=== PATIENT | male | born 1975 | race Caucasian/White ===

== ENCOUNTER 2017-10-07 11:53 | Emergency (ER) | payer BC ==
[2017-10-07] MEDS ORDERED: ONDANSETRON 4 MG/2 ML VIAL ONE (12:56)
[2017-10-07] MEDS ORDERED: FENTANYL CITR 100 MCG/2 ML ONE ×2 (12:56→14:19)
[2017-10-07 12:58] LABS: Absolute Lymphocytes (CBC) 2.8 K/uL (0.7-4.9); Absolute Monocytes 0.7 K/uL (0.1-1.3); Absolute Neutrophil 5.8 K/uL (1.8-8.0); Basophils % 0.1 % (0-1.3); Eosinophils % 1.7 % (0-4.4); Hematocrit 45.8 % (39.6-49.0); Lymphocytes % 29.3 % (15.3-44.8); MCH 28.9 pg (27.0-35.0); MCV 87.4 fL (80-100); MPV 9.1 fL (7.6-11.3); Monocytes % 7.7 % (3.3-12.3); RBC Red Blood Cell Count 5.24 M/uL (4.33-5.43)
[2017-10-07 13:18] LABS: BUN Blood Urea Nitrogen 8 mg/dL (7-18); Bicarbonate 27 mmol/L (21-32); Glucose Level 116 mg/dL (74-106); Sodium Level 137 mmol/L (136-145)
--- NOTE | 2017-10-07 14:37 | RAD REPORT ---
EXAM DESCRIPTION: CT - Chest Abdomen Pelvis W Cont - 10/07/2017 2:08 pm CLINICAL HISTORY: Chest and abdominal pain status post fall COMPARISON: CT abdomen June 2016 and 2013 TECHNIQUE: Computed axial tomography of the chest, abdomen and pelvis was obtained. 100 cc Isovue-30 0 was administered intravenously. Oral contrast was not requested. This limits evaluation of bowel. All CT scans are performed using dose optimization technique as appropriate and may include automated exposure control or mA/KV adjustment according to patient size. FINDINGS: A pleural effusion is not present. A pericardial effusion is not seen. [place] and blebs are present within the lungs. A 15 millimeter ground-glass opacity is present within the right upper lobe. A mediastinal hematoma is not present. A small lucency within 2 lower left ribs is unchanged from 2014 and likely benign The liver, spleen, pancreas, adrenals, kidneys and bladder do not demonstrate a traumatic injury. Postsurgical changes involve the sigmoid colon. The appendix is normal. Diastases of the rectus abdom inis muscles is again demonstrated. Inguinal hernias CT. The liver, spleen, pancreas, adrenals and kidneys appear unremarkable. The bladder appears grossly normal. No ascites is seen. IMPRESSION: No traumatic injury involving the chest, abdomen nor pelvis is seen. A 15 millimeter ground-glass opacity within the right upper lobe indicative of a mild alveolitis
--- NOTE | 2017-10-07 14:44 | EDPHYS ---
Physician Documentation [facility] Name: Dennis Keating Age: 42 yrs Sex: Male : 1975 Arrival Date: 10/07/2017 Time: 11:56 Bed 16 Private MD: Emile Garcia ED Physician Jose John HPI: 10/07 12:45 This 42 yrs old Male presents to ER via Ambulatory with complaints of Fall jr8 Injury. 12:45 Details of fall: The patient fell from an upright position, while standing. Onset: The jr8 symptoms/episode began/occurred acutely, today. Associated injuries: The patient sustained injury to the chest, injury to the abdomen. Severity of symptoms: At their worst the symptoms were moderate, in the emergency department the symptoms are unchanged. The patient has not experienced similar symptoms in the past. The patient has not recently seen a physician. Patient stated that he slipped outside in rain. Landed on 2x4 on left side of body. Pain to ribs and abdomen. Stated that he cannot take a deep breath. Historical: - Allergies: 12:06 Aspirin; sg 12:06 Ibuprofen; sg 12:06 PENICILLINS; sg 12:06 Toradol; sg - PMHx: 12:06 CHRONS; Diverticulitis; Back pain; sg - Immunization history: Last tetanus immunization: unknown. - Ebola Screening: : Patient negative for fever greater than or equal to 101.5 degrees Fahrenheit, and additional compatible Ebola Virus Disease symptoms Patient denies exposure to infectious person Patient denies travel to an Ebola-affected area in the 21 days before illness onset No symptoms or risks identified at this time. - Social history:: Smoking status: Patient uses tobacco products, smokes one-half pack cigarettes per day. - Social history: Uses tobacco products: cigarettes, 1/2 ppd. ROS: 12:45 Eyes: Negative for injury, pain, redness, and discharge, ENT: Negative for injury, jr8 pain, and discharge, Neck: Negative for injury, pain, and swelling, Back: Negative for injury and pain, MS/Extremity: Negative for injury and deformity, Skin: Negative for injury, rash, and discoloration, Neuro: Negative for headache, weakness, numbness, tingling, and seizure. 12:45 Cardiovascular: Positive for chest pain, Negative for edema, orthopnea, palpitations, paroxysmal nocturnal dyspnea. 12:45 Respiratory: Positive for shortness of breath, Negative for cough, dyspnea on exertion, hemoptysis. 12:45 Abdomen/GI: Positive for abdominal pain, Negative for nausea, vomiting, and diarrhea. Exam: 12:45 Head/Face: Normocephalic, atraumatic. Eyes: Pupils equal round and reactive to light, jr8 extra-ocular motions intact. Lids and lashes normal. Conjunctiva and sclera are non-icteric and not injected. Cornea within normal limits. Periorbital areas with no swelling, redness, or edema. ENT: Nares patent. No nasal discharge, no septal abnormalities noted. Tympanic membranes are normal and external auditory canals are clear. Oropharynx with no redness, swelling, or masses, exudates, or evidence of obstruction, uvula midline. Mucous membranes moist. Neck: Trachea midline, no thyromegaly or masses palpated, and no cervical lymphadenopathy. Supple, full range of motion without nuchal rigidity, or vertebral point tenderness. No Meningismus. Cardiovascular: Regular rate and rhythm with a normal S1 and S2. No gallops, murmurs, or rubs. Normal PMI, no JVD. No pulse deficits. Respiratory: Lungs have equal breath sounds bilaterally, clear to auscultation and percussion. No rales, rhonchi or wheezes noted. No increased work of breathing, no retractions or nasal flaring. Back: No spinal tenderness. No costovertebral tenderness. Full range of motion. Skin: Warm, dry with normal turgor. Normal color with no rashes, no lesions, and no evidence of cellulitis. MS/ Extremity: Pulses equal, no cyanosis. Neurovascular intact. Full, normal range of motion. Neuro: Awake and alert, GCS 15, oriented to person, place, time, and situation. Cranial nerves II-XII grossly intact. Motor strength 5/5 in all extremities. Sensory grossly intact. Cerebellar exam normal. Normal gait. 12:45 Chest/axilla: Inspection: normal, Palpation: tenderness, that is moderate, of the diaphragm and left lateral anterior chest. 12:45 Abdomen/GI: Inspection: bruising, left upper quadrant, obese Bowel sounds: active, Palpation: moderate abdominal tenderness, in the anterior aspect of left lateral abdomen and left upper quadrant, Indicators: McBurney's point is not tender, Vinson's sign is negative, Rovsing's sign is negative, Liver: no appreciated palpable abnormalities, tenderness, is not appreciated. Vital Signs: 11:59 Resp 18; Temp 98.0; Pulse Ox 100% on R/A; Weight 149.69 kg (R); Pain 10/10; sg 12:05 BP 134 / 72; Pulse 76; sg 13:00 BP 126 / 98; Pulse 96; Resp 16; Pulse Ox 96% on R/A; aj 15:17 BP 121 / 92; Pulse 95; Resp 20; Pulse Ox 96% on R/A; aj Dre Coma Score: 11:59 Eye Response: spontaneous(4). Verbal Response: oriented(5). Motor Response: obeys sg commands(6). Total: 15. Trauma Score (Adult): 11:59 Eye Response: spontaneous(1); Verbal Response: oriented(1); Motor Response: obeys sg commands(2); Systolic BP: > 89 mm Hg(4); Respiratory Rate: 10 to 29 per min(4); Dre Score: 15; Trauma Score: 12 MDM: 12:00 Patient medically screened. [facility] 14:41 Data reviewed: vital signs, nurses notes, lab test result(s), radiologic studies, CT jr8 scan, and as a result, I will discharge patient. Data interpreted: Pulse oximetry: on room air is 96 %. Interpretation: normal. Counseling: I had a detailed discussion with the patient and/or guardian regarding: the historical points, exam findings, and any diagnostic results supporting the discharge/admit diagnosis, lab results, radiology results, the need for outpatient follow up, a family practitioner, to return to the emergency department if symptoms worsen or persist or if there are any questions or concerns that arise at home. 10/07 12:21 Order name: CBC with Diff; Complete Time: 13:40 jr8 10/07 12:21 Order name: Basic Metabolic Panel; Complete Time: 13:40 8 10/07 12:21 Order name: CT Chest, Abdomen, Pelvis - W/Contrast; Complete Time: 14:39 jr8 10/07 12:21 Order name: IV; Complete Time: 12:46 jr8 Administered Medications: 12:58 Drug: fentaNYL (PF) 100 mcg Route: IVP; Site: left hand; aj 15:21 Follow up: Response: No change in condition aj 12:58 Drug: Zofran 4 mg Route: IVP; Site: left hand; aj 15:21 Follow up: Response: No adverse reaction aj 14:21 Drug: fentaNYL (PF) 100 mcg Route: IVP; Site: left hand; aj 15:21 Follow up: Response: Pain is decreased aj Disposition: 18:36 Co-signature as Attending Physician, Jose John MD. rn Disposition: 10/07/17 14:43 Discharged to Home. Impression: Acute pain due to trauma, Chest wall contustion, Abdominal contusion . - Condition is Stable. - Prescriptions for Tylenol- Codeine #3 300-30 mg Oral Tablet - take 2 tablet by ORAL route every 6 hours As needed; 30 tablet. Cyclobenzaprine 10 mg Oral Tablet - take 1 tablet by ORAL route every 8 hours As needed; 20 tablet. - Medication Reconciliation Form, Thank You Letter, Antibiotic Education, Prescription Opioid Use form. - Follow up: Emile Garcia MD; When: 2 - 3 days; Reason: Recheck today's complaints, Continuance of care, Re-evaluation by your physician. - Problem is new. - Symptoms have improved. Signatures: Dispatcher [employer] EDMS Carlos Smith RN RN sg Myers, Amanda, RN RN aj Nieto, Roman, MD MD rn Roszak, Josh, PA PA jr8 Corrections: (The following items were deleted from the chart) 12:26 11:57 Social history: Smoking status: Patient/guardian denies using tobacco, [facility] 15:22 14:43 10/07/2017 14:43 Discharged to Home. Impression: Acute pain due to trauma; Chest aj wall contustion, Abdominal contusion . Condition is Stable. Forms are Medication Reconciliation Form, Thank You Letter, Antibiotic Education, Prescription Opioid Use. Follow up: Emile Garcia; When: 2 - 3 days; Reason: Recheck today's complaints, Continuance of care, Re-evaluation by your physician. Problem is new. Symptoms have improved. jr8
--- NOTE | 2017-10-07 14:44 | ER ---
Nurse's Notes [facility] Name: Dennis Keating Age: 42 yrs Sex: Male : 1975 Arrival Date: 10/07/2017 Time: 11:56 Bed 16 Private MD: Emile Garcia Diagnosis: Acute pain due to trauma;Chest wall contustion, Abdominal contusion Presentation: 10/07 11:57 Presenting complaint: Patient states: pt stepped on a wet piece of plywood, slipped and sg fell, hit a fence post on his left rib cage area, has a hx of back pain and recently had an MRI the other day, reports pain in his lower back. Care prior to arrival: None. Mechanism of Injury: Fall from standing position. Trauma event details: Injury occurred in the [facility], Injury occurred: at home. Injury occurred: October 07, 2017 Injury occurred at: 09:00. 11:57 Acuity: AMNA 4 sg 11:57 Method Of Arrival: Ambulatory sg 11:57 Transition of care: patient was not received from another setting of care. Onset of sg symptoms was October 07, 2017. Risk Assessment: Do you want to hurt yourself or someone else? Patient reports no desire to harm self or others. Initial Sepsis Screen: Does the patient meet any 2 criteria? No. Patient's initial sepsis screen is negative. Does the patient have a suspected source of infection? No. Patient's initial sepsis screen is negative. 13:45 Acuity: AMNA 3 ss Historical: - Allergies: 12:06 Aspirin; sg 12:06 Ibuprofen; sg 12:06 PENICILLINS; sg 12:06 Toradol; sg - PMHx: 12:06 CHRONS; Diverticulitis; Back pain; sg - Immunization history: Last tetanus immunization: unknown. - Ebola Screening: : Patient negative for fever greater than or equal to 101.5 degrees Fahrenheit, and additional compatible Ebola Virus Disease symptoms Patient denies exposure to infectious person Patient denies travel to an Ebola-affected area in the 21 days before illness onset No symptoms or risks identified at this time. - Social history:: Smoking status: Patient uses tobacco products, smokes one-half pack cigarettes per day. - Social history: Uses tobacco products: cigarettes, 1/2 ppd. Screenin:57 Abuse screen: Denies threats or abuse. Denies injuries from another. Tuberculosis sg screening: No symptoms or risk factors identified. Never had TB. 13:00 Nutritional screening: No deficits noted. Fall Risk None identified. aj Primary Survey: 11:57 A: Airway: patent, No supplemental oxygen in use on arrival. Oral cavity: clear. sg Breathing/Chest: Respiratory pattern: regular, Respiratory effort: spontaneous, unlabored, Chest inspection: symmetrical rise and fall of the chest. Circulation: Pulses: palpable right radial artery and left radial artery. Skin color: pink, Skin temperature: warm. Disability Alert. 15:19 Reassessment Airway Airway Patent Breathing/Chest Respiratory pattern Regular aj Respiratory effort Spontaneous Unlabored Breath sounds Clear Chest inspection Symmetrical Circulation Color [place]. Secondary Survey: 11:57 HEENT: No deficits noted. Gastrointestinal: Abdomen is soft, obese. : No signs and/or sg symptoms were reported regarding the genitourinary system. Musculoskeletal: Reports pain in low back, and left ribs. abrasion noted to left side of anterior chest wall. Assessment: 13:00 General: Appears in no apparent distress. uncomfortable, obese, Behavior is calm, aj cooperative, appropriate for age. Pain: Complains of pain in chest and diaphragm. Neuro: Level of Consciousness is awake, alert, obeys commands, Oriented to person, place, time, situation. Respiratory: Airway is patent Respiratory effort is even, unlabored, Respiratory pattern is regular, symmetrical. Derm: Skin is intact, is healthy with good turgor, Skin is pink, warm \T\ dry. normal. Musculoskeletal: Reports pain in diaphragm. Vital Signs: 11:59 Resp 18; Temp 98.0; Pulse Ox 100% on R/A; Weight 149.69 kg (R); Pain 10/10; sg 12:05 BP 134 / 72; Pulse 76; sg 13:00 BP 126 / 98; Pulse 96; Resp 16; Pulse Ox 96% on R/A; aj 15:17 BP 121 / 92; Pulse 95; Resp 20; Pulse Ox 96% on R/A; aj [place] Coma Score: 11:59 Eye Response: spontaneous(4). Verbal Response: oriented(5). Motor Response: obeys sg commands(6). Total: 15. Trauma Score (Adult): 11:59 Eye Response: spontaneous(1); Verbal Response: oriented(1); Motor Response: obeys sg commands(2); Systolic BP: > 89 mm Hg(4); Respiratory Rate: 10 to 29 per min(4); Dre Score: 15; Trauma Score: 12 ED Course: 11:56 Patient arrived in ED. sb2 11:56 Emile Garcia MD is Private Physician. sb2 11:57 Patient has correct armband on for positive identification. Bed in low position. Call sg light in reach. Side rails up X 1. 11:57 Arm band placed on. sg 11:59 Triage completed. sg 12:00 Gordo Contreras PA is PHCP. jr8 12:00 Jose John MD is Attending Physician. jr8 12:04 Darya Ray, ARAMIS is Primary Nurse. aj 12:46 Initial lab(s) drawn, by me, sent to lab. Inserted saline lock: 20 gauge in left wrist, em1 using aseptic technique. Blood collected. 12:57 Radiology exam delayed due to lab results not completed at this time. (BUN/Creatinine). vr 13:00 No provider procedures requiring assistance completed. aj 14:09 CT Chest, Abdomen, Pelvis - W/Contrast In Process Unspecified. EDMS 14:41 Emile Garcia MD is Referral Physician. jr8 15:17 IV discontinued, intact. aj 15:19 Patient maintains SpO2 saturation greater than 95% on room air. aj Administered Medications: 12:58 Drug: fentaNYL (PF) 100 mcg Route: IVP; Site: left hand; aj 15:21 Follow up: Response: No change in condition aj 12:58 Drug: Zofran 4 mg Route: IVP; Site: left hand; aj 15:21 Follow up: Response: No adverse reaction aj 14:21 Drug: fentaNYL (PF) 100 mcg Route: IVP; Site: left hand; aj 15:21 Follow up: Response: Pain is decreased aj Intake: 15:19 PO: 0ml; Total: 0ml. aj Outcome: 14:43 Discharge ordered by . jr8 15:17 Discharged to home with significant other. aj 15:17 Condition: good 15:17 Discharge instructions given to patient, family, Instructed on discharge instructions, follow up and referral plans. medication usage, Demonstrated understanding of instructions, follow-up care, medications, Prescriptions given X 2. 15:20 Patient's length of stay was not longer than 2 hours. aj 15:22 Patient left the ED. aj Signatures: Dispatcher [employer] EDCarlos Peoples RN RN sg Myers, Amanda, RN RN aj Martinez, Eric em1 Tori Nowak RN RN ss Davis, Victoria vr Roszak, Josh, PA PA jr8 Marlene Flores2 Corrections: (The following items were deleted from the chart) 12: 11:57 Social history: Smoking status: Patient/guardian denies using tobacco, [facility] 12:27 11:57 Presenting complaint: Patient states: pt stepped on a wet piece of plywood, sg slipped and fell, hit a fence post on his right rib cage area, has a hx of back pain and recently had an MRI the other day, reports pain in his lower back sg
[2017-10-07 15:46] VITALS: TEMP 98
[2017-10-07 15:48] VITALS: O2SAT 96
[2017-10-07 15:49] VITALS: BP 121/92
== END 2017-10-07 15:22 | disposition home or self-care (01) ==
LOC: ER 11:53
DX: S20.219A Contusion of unspecified front wall of thorax, initial encounter (principal); S30.1XXA Contusion of abdominal wall, initial encounter; W18.39XA Other fall on same level, initial encounter; Y93.89 Activity, other specified; Y92.89 Other specified places as the place of occurrence of the external cause; G89.11 Acute pain due to trauma; F17.210 Nicotine dependence, cigarettes, uncomplicated; Z88.0 Allergy status to penicillin; Z88.5 Allergy status to narcotic agent; Z88.6 Allergy status to analgesic agent
CPT/HCPCS: 36415; 71260; 74177; 80048; 85025; 96374; 96375; 99284; J2405; J3010; Q9967

== ENCOUNTER 2017-11-14 12:55 | Inpatient (IN) | payer BC, SELFPAY ==
--- NOTE | 2017-11-14 14:37 | ER ---
Nurse's Notes [facility] Name: Dennis Keating Age: 42 yrs Sex: Male : 1975 Arrival Date: 11/14/2017 Time: 12:56 Bed 25 Private MD: Diagnosis: Cellulitis to left foot and lower leg Presentation: 11/14 13:00 Presenting complaint: Patient states: Ulcer to left foot for 2 days. Transition of aj care: patient was not received from another setting of care. Onset of symptoms was November 12, 2017. Risk Assessment: Do you want to hurt yourself or someone else? Patient reports no desire to harm self or others. Initial Sepsis Screen: Does the patient meet any 2 criteria? No. Patient's initial sepsis screen is negative. Does the patient have a suspected source of infection? No. Patient's initial sepsis screen is negative. Care prior to arrival: None. 13:00 Method Of Arrival: Ambulatory aj 13:00 Acuity: AMNA 3 aj Triage Assessment: 13:02 General: Appears in no apparent distress. comfortable, Behavior is calm, cooperative, aj appropriate for age. Pain: Complains of pain in dorsum of left foot. Neuro: Level of Consciousness is awake, alert, obeys commands, Oriented to person, place, time, situation, Appropriate for age. Respiratory: Airway is patent Respiratory effort is even, unlabored, Respiratory pattern is regular, symmetrical. Derm: Skin is intact, is healthy with good turgor, Skin is pink, warm \T\ dry. normal, Wound noted dorsum of left foot Wound is Ulcer noted to top of left foot. Redness to left moreno. Musculoskeletal: Swelling present in right leg and left leg. Historical: - Allergies: 13:02 Aspirin; aj 13:02 Ibuprofen; aj 13:02 PENICILLINS; aj 13:02 Toradol; aj 13:02 Cipro PO; aj - Home Meds: 13:02 Flexeril Oral [Active]; Quinter Oral [Active]; meloxicam oral oral [Active]; aj - PMHx: 13:02 Back pain; Diverticulitis; aj - PSHx: 13:02 Knee surgery; aj - Immunization history:: Adult Immunizations up to date. - Social history:: Smoking status: Patient uses tobacco products, smokes one-half pack cigarettes per day. - Ebola Screening: : Patient negative for fever greater than or equal to 101.5 degrees Fahrenheit, and additional compatible Ebola Virus Disease symptoms Patient denies exposure to infectious person Patient denies travel to an Ebola-affected area in the 21 days before illness onset No symptoms or risks identified at this time. Screenin:26 Abuse screen: Denies threats or abuse. Denies injuries from another. Nutritional ed1 screening: No deficits noted. Tuberculosis screening: No symptoms or risk factors identified. Fall Risk None identified. Assessment: 13:26 General: Appears uncomfortable, Behavior is calm, cooperative. Pain: Complains of pain ed1 in dorsum of left foot Pain radiates to left leg Pain currently is 7 out of 10 on a pain scale. Quality of pain is described as aching, throbbing, Pain began 1 day ago. Is continuous, Current management - is no interventions. Neuro: Level of Consciousness is awake, alert, obeys commands, Oriented to person, place, time, situation. Cardiovascular: Denies chest pain, Heart tones S1 S2 present. Respiratory: Airway is patent Respiratory effort is even, unlabored, Respiratory pattern is regular, symmetrical, Breath sounds are clear bilaterally. GI: No signs and/or symptoms were reported involving the gastrointestinal system. : No signs and/or symptoms were reported regarding the genitourinary system. EENT: No signs and/or symptoms were reported regarding the EENT system. Derm: Skin is healthy with good turgor, Skin is dry, Skin is normal, Skin temperature is warm Wound noted dorsum of left foot Other: no drainage noted, redness and swelling to area. Musculoskeletal: Circulation, motion, and sensation intact. Capillary refill < 3 seconds, in bilateral toes. Swelling present in left foot and left leg. 13:30 General: The previous assessment is accurate. Call light remains within reach. . ss 13:56 Reassessment: Patient appears in no apparent distress at this time. No changes from ed1 previously documented assessment. Patient and/or family updated on plan of care and expected duration. Pain level reassessed. Patient is alert, oriented x 3, equal unlabored respirations, skin warm/dry/pink. Patient states symptoms have not improved. 15:22 Reassessment: Patient appears in no apparent distress at this time. Patient and/or ed1 family updated on plan of care and expected duration. Pain level reassessed. Patient is alert, oriented x 3, equal unlabored respirations, skin warm/dry/pink. Patient states feeling better. Patient states symptoms have improved. 15:42 Reassessment: Patient appears in no apparent distress at this time. No changes from ed1 previously documented assessment. Patient and/or family updated on plan of care and expected duration. Pain level reassessed. Patient is alert, oriented x 3, equal unlabored respirations, skin warm/dry/pink. Vital Signs: 13:02 BP 137 / 99; Pulse 102; Resp 20; Temp 97.0; Pulse Ox 96% on R/A; Weight 149.69 kg; aj Height 6 ft. 2 in. (187.96 cm); 13:56 BP 138 / 94; Pulse 83; Resp 20; Temp 98(O); Pulse Ox 96% on R/A; Pain 8/10; ed1 15:22 BP 125 / 86; Pulse 81; Resp 20; Temp 97.5; Pulse Ox 99% on 2 lpm NC; Pain 4/10; ed1 13:02 Body Mass Index 42.37 (149.69 kg, 187.96 cm) ED Course: 12:56 Patient arrived in ED. as 13:01 Triage completed. aj 13:02 Arm band placed on right wrist. Patient placed in waiting room, Patient notified of wait time. 13:22 Annette Overton LVN is Primary Nurse. ed1 13:26 Patient has correct armband on for positive identification. Bed in low position. Call ed1 light in reach. Side rails up X 1. Adult w/ patient. Pulse ox on. NIBP on. 13:29 Awaiting ED provider evaluation. ed1 13:56 Vlad Valle MD is Attending Physician. kdr 13:57 Awaiting ED provider evaluation. ed1 14:36 Calista Larios MD is Hospitalizing Provider. kdr 14:45 Initial lab(s) drawn, by ct, sent to lab. First set of blood cultures drawn by me, ag Second set of blood cultures drawn by ct. 14:50 X-ray completed. Portable x-ray completed in exam room. Patient tolerated procedure la2 well. 14:51 Inserted saline lock: 20 gauge in right antecubital area, using aseptic technique. ag Blood collected. 14:52 CBC with Automated Diff Sent. ag 14:52 Basic Metabolic Panel Sent. ag 14:53 Blood Culture Adult (2) Sent. ag 14:53 Chem 7 Sent. ag 14:53 CBC with Diff Sent. ag 14:59 Foot Left 3 View XRAY In Process Unspecified. EDMS 15:42 No provider procedures requiring assistance completed. Patient admitted, IV remains in ed1 place. intact, No redness/swelling at site. Administered Medications: 15:13 Drug: Clindamycin 900 mg Route: IVPB; Infused Over: 30 mins; Site: right antecubital; ed1 15:43 Follow up: Response: No adverse reaction; IV Status: Completed infusion; IV Intake: [id number] 15:14 Drug: morphine 4 mg Route: IVP; Site: right antecubital; ss 15:29 Follow up: Response: No adverse reaction; No change in condition; Pain is unchanged, ed1 physician notified 15:14 Drug: Zofran 4 mg Route: IVP; Site: right antecubital; ss 15:29 Follow up: Response: No adverse reaction ed1 15:29 Drug: vancoMYCIN 1.5 grams Route: IVPB; Rate: calculated rate; Site: right antecubital; ed1 15:43 Follow up: IV Status: Infusion continued upon admission ed1 Intake: 15:43 IV: 50ml; Total: 50ml. ed1 Outcome: 14:36 Decision to Hospitalize by Provider. kdr 15:42 Admitted to Tele accompanied by tech, family with patient, via wheelchair, room 431, ed1 with chart, Report called to Lucy Goss 15:42 Condition: stable 15:42 Discharge instructions given to patient, family, Instructed on the need for admit, Demonstrated understanding of instructions. 15:45 Patient left the ED. ed1 Signatures: Dispatcher [employer] EDMS Darya Ray RN RN aj Rittger, Kevin, MD MD kdr Martinez, Amelia as Smirch, Shelby, RN RN ss Riggs, Erika, RV REPAIRER RV REPAIRER ed1 Mae Braxton Leslie la2 Corrections: (The following items were deleted from the chart) 15:58 15:42 Admitted to Tele accompanied by tech, family with patient, via wheelchair, room ed1 431, with chart, ed1
--- NOTE | 2017-11-14 14:37 | EDPHYS ---
Physician Documentation [facility] Name: Dennis Keating Age: 42 yrs Sex: Male : 1975 Arrival Date: 11/14/2017 Time: 12:56 Bed 25 Private MD: ED Physician Vlad Valle HPI: 11/14 14:38 This 42 yrs old Male presents to ER via Ambulatory with complaints of Foot kdr Pain, Leg Pain, Skin Problem. 14:38 The patient presents with a bite, by an insect. The complaints affect the left foot. kdr 17:36 Context: The problem was sustained at home, resulted from Possible insect bite, the kdr patient can partially bear weight, the patient is able to ambulate, with mild difficulty. Onset: The symptoms/episode began/occurred gradually, 3 day(s) ago. Modifying factors: The symptoms are alleviated by nothing, the symptoms are aggravated by weight bearing, movement, wearing shoes. Associated signs and symptoms: Pertinent positives: calf tenderness, swelling, warmth, weakness. Severity of symptoms: At their worst the symptoms were moderate, in the emergency department the symptoms are unchanged. yes - long history of cellulitis and treatment. The patient has not recently seen a physician. Historical: - Allergies: 13:02 Aspirin; aj 13:02 Ibuprofen; aj 13:02 PENICILLINS; aj 13:02 Toradol; aj 13:02 Cipro PO; aj - Home Meds: 13:02 Flexeril Oral [Active]; Kuna Oral [Active]; meloxicam oral oral [Active]; aj - PMHx: 13:02 Back pain; Diverticulitis; aj - PSHx: 13:02 Knee surgery; aj - Immunization history:: Adult Immunizations up to date. - Social history:: Smoking status: Patient uses tobacco products, smokes one-half pack cigarettes per day. - Ebola Screening: : Patient negative for fever greater than or equal to 101.5 degrees Fahrenheit, and additional compatible Ebola Virus Disease symptoms Patient denies exposure to infectious person Patient denies travel to an Ebola-affected area in the 21 days before illness onset No symptoms or risks identified at this time. ROS: 17:36 Constitutional: Negative for fever, chills, and weight loss, Eyes: Negative for injury, kdr pain, redness, and discharge, Neck: Negative for injury, pain, and swelling, Cardiovascular: Negative for chest pain, palpitations, and edema, Respiratory: Negative for shortness of breath, cough, wheezing, and pleuritic chest pain, Abdomen/GI: Negative for abdominal pain, nausea, vomiting, diarrhea, and constipation, Back: Negative for injury and pain, : Negative for injury, bleeding, discharge, and swelling, MS/Extremity: Negative for injury and deformity, Psych: Negative for depression, anxiety, suicide ideation, homicidal ideation, and hallucinations, Allergy/Immunology: Negative for hives, rash, and allergies, Endocrine: Negative for neck swelling, polydipsia, polyuria, polyphagia, and marked weight changes, Hematologic/Lymphatic: Negative for swollen nodes, abnormal bleeding, and unusual bruising. 17:36 Skin: Positive for cellulitis, erythema, swelling, The left foot is red, warm and swollen with erythema to the mid to upper calf. Exam: 17:36 Constitutional: This is a well developed, well nourished patient who is awake, alert, kdr and in no acute distress. Head/Face: Normocephalic, atraumatic. Eyes: Pupils equal round and reactive to light, extra-ocular motions intact. Lids and lashes normal. Conjunctiva and sclera are non-icteric and not injected. Cornea within normal limits. Periorbital areas with no swelling, redness, or edema. Neck: Trachea midline, no thyromegaly or masses palpated, and no cervical lymphadenopathy. Supple, full range of motion without nuchal rigidity, or vertebral point tenderness. No Meningismus. Chest/axilla: Normal chest wall appearance and motion. Nontender with no deformity. No lesions are appreciated. Cardiovascular: Regular rate and rhythm with a normal S1 and S2. No gallops, murmurs, or rubs. Normal PMI, no JVD. No pulse deficits. Respiratory: Lungs have equal breath sounds bilaterally, clear to auscultation and percussion. No rales, rhonchi or wheezes noted. No increased work of breathing, no retractions or nasal flaring. Abdomen/GI: Soft, non-tender, with normal bowel sounds. No distension or tympany. No guarding or rebound. No evidence of tenderness throughout. Back: No spinal tenderness. No costovertebral tenderness. Full range of motion. MS/ Extremity: Pulses equal, no cyanosis. Neurovascular intact. Full, normal range of motion. Neuro: Awake and alert, GCS 15, oriented to person, place, time, and situation. Cranial nerves II-XII grossly intact. Motor strength 5/5 in all extremities. Sensory grossly intact. Cerebellar exam normal. Normal gait. Psych: Awake, alert, with orientation to person, place and time. Behavior, mood, and affect are within normal limits. 17:36 Skin: Appearance: Color: erythematous, flushed, Temperature: warm, Moisture: dry, swelling, that are moderate, that are marked. Vital Signs: 13:02 BP 137 / 99; Pulse 102; Resp 20; Temp 97.0; Pulse Ox 96% on R/A; Weight 149.69 kg; aj Height 6 ft. 2 in. (187.96 cm); 13:56 BP 138 / 94; Pulse 83; Resp 20; Temp 98(O); Pulse Ox 96% on R/A; Pain 8/10; ed1 15:22 BP 125 / 86; Pulse 81; Resp 20; Temp 97.5; Pulse Ox 99% on 2 lpm NC; Pain 4/10; ed1 13:02 Body Mass Index 42.37 (149.69 kg, 187.96 cm) aj MDM: 14:36 Patient medically screened. kdr 17:36 Data reviewed: vital signs, nurses notes, lab test result(s), radiologic studies. kdr Counseling: I had a detailed discussion with the patient and/or guardian regarding: the historical points, exam findings, and any diagnostic results supporting the discharge/admit diagnosis, lab results, radiology results, the need for further work-up and treatment in the hospital. 11/14 14:15 Order name: CBC with Diff kdr 11/14 14:15 Order name: Chem 7 [facility] 11/14 14:15 Order name: Blood Culture Adult (2) [facility] 11/14 14:15 Order name: CBC with Automated Diff [facility]TN 11/14 14:15 Order name: Basic Metabolic Panel [facility] 11/14 14:35 Order name: ESR [facility] 11/14 14:15 Order name: Foot Left 3 View XRAY [facility] 11/14 14:50 Order name: Lactate [facility]TN 11/14 14:50 Order name: Extrem Venous W Compress Crow [facility]TN 11/14 15:06 Order name: Vancomycin Level Trough EDMS Administered Medications: 15:13 Drug: Clindamycin 900 mg Route: IVPB; Infused Over: 30 mins; Site: right antecubital; ed1 15:43 Follow up: Response: No adverse reaction; IV Status: Completed infusion; IV Intake: [id number] 15:14 Drug: morphine 4 mg Route: IVP; Site: right antecubital; ss 15:29 Follow up: Response: No adverse reaction; No change in condition; Pain is unchanged, ed1 physician notified 15:14 Drug: Zofran 4 mg Route: IVP; Site: right antecubital; ss 15:29 Follow up: Response: No adverse reaction ed1 15:29 Drug: vancoMYCIN 1.5 grams Route: IVPB; Rate: calculated rate; Site: right antecubital; ed1 15:43 Follow up: IV Status: Infusion continued upon admission ed1 Disposition: 11/14/17 14:36 Hospitalization ordered by Calista Larios for Inpatient Admission. Preliminary diagnosis is Cellulitis to left foot and lower leg. - Bed requested for Telemetry/MedSurg (Inpatient). - Status is Inpatient Admission. ed1 - Condition is Fair. - Problem is new. - Symptoms are unchanged. UTI on Admission? No Signatures: Dispatcher [employer] EDTN Darya Ray RN RN aj Rittger, Kevin, MD MD kdr Smirch, Shelby, RN RN ss Annette Overton LVN LVN ed1 Heather Spears Corrections: (The following items were deleted from the chart) 14:39 14:36 Hospitalization Ordered by Calista Larios MD for Inpatient Admission. Preliminary eb diagnosis is Cellulitis to left foot and lower leg. Bed requested for Telemetry/MedSurg (Inpatient). Status is Inpatient Admission. Condition is Fair. Problem is new. Symptoms are unchanged. UTI on Admission? No. kdr 14:59 14:39 11/14/2017 14:36 Hospitalization Ordered by Calista Larios MD for Inpatient eb Admission. Preliminary diagnosis is Cellulitis to left foot and lower leg. Bed requested for Telemetry/MedSurg (Inpatient). Status is Inpatient Admission. Condition is Fair. Problem is new. Symptoms are unchanged. UTI on Admission? No. eb 15:45 14:59 11/14/2017 14:36 Hospitalization Ordered by Calista Larios MD for Inpatient ed1 Admission. Preliminary diagnosis is Cellulitis to left foot and lower leg. Bed requested for Telemetry/MedSurg (Inpatient). Status is Inpatient Admission. Condition is Fair. Problem is new. Symptoms are unchanged. UTI on Admission? No. eb
[2017-11-14] MEDS ORDERED: CLINDAMYCIN 900MG/D5W 900 MG/50 ML BAG IV ONE (14:59)
[2017-11-14 15:04] LABS: Absolute Lymphocytes (CBC) 2.8 K/uL (0.7-4.9); Absolute Monocytes 0.7 K/uL (0.1-1.3); Absolute Neutrophil 5.6 K/uL (1.8-8.0); Basophils % 1.3 % (0-1.3); Eosinophils % 1.9 % (0-4.4); Hematocrit 44.6 % (39.6-49.0); Lymphocytes % 29.9 % (15.3-44.8); MCH 29.9 pg (27.0-35.0); MCV 88.7 fL (80-100); Monocytes % 7.6 % (3.3-12.3); RBC Red Blood Cell Count 5.03 M/uL (4.33-5.43)
[2017-11-14] MEDS ORDERED: MORPHINE 4 MG/ML SYR ONE (15:04)
[2017-11-14] MEDS ORDERED: ONDANSETRON 4 MG/2 ML VIAL ONE (15:05)
--- NOTE | 2017-11-14 15:05 | P.HP ---
Certification for Inpatient Patient admitted to: Inpatient With expected LOS: >2 Midnights Patient will require the following post-hospital care: None Practitioner: I am a practitioner with admitting privileges, knowledge of patient current condition, hospital course, and medical plan of care. Services: Services provided to patient in accordance with Admission requirements found in Title 42 Section 412.3 of the Code of Federal Regulations Patient History Date of Service: 11/14/17 Primary Care Provider: OOT Reason for admission: Leg Swelling History of Present Illness: This is a 42-year-old male with significant past medical history of Crohn's disease status post colon resection who presented to the ED complaining of having some left lower leg swelling and erythema. Patient stated that last Wednesday he noticed that he had an ant bite which he has been scratching ever since and got progressively worse is a decided to come to the ER. Patient stated that he has been on his feet a lot and he noticed that his P has getting swollen more than usual. Left side is swollen worse than the right side. Patient stated that he has been scratching his legs with his hand and his heel the other leg and noticed that today his skin was peeling off and thus he decided to come to the ER. Patient stated that [place] is or tight shoes and socks which made his swelling and pain worsened left lower extremity. Patient denies having any fever chills nausea vomiting or any other associated symptoms at this time. Patient stated that he has had similar episode in the past and required IV antibiotics before he was discharged home. Allergies aspirin Allergy (Verified 07/04/11 01:56) Itching/Hives/Rash ibuprofen Allergy (Verified 07/04/11 01:57) Itching/Hives/Rash ketorolac tromethamine [From Toradol] Allergy (Verified 07/04/11 01:57) Itching/Hives/Rash Penicillins Allergy (Verified 07/04/11 01:56) Itching/Hives/Rash Home Medications: Cefepime [Maxipime*] 1 gm IJ Q12H #20 vial 07/07/13 Hydrocodone 5/APAP 325 [Sanger 5/325*] 1 tab PO Q4HP PRN #50 tab 07/07/13 metroNIDAZOLE [Flagyl*] 500 mg PO Q8H #30 tablet 07/07/13 Fentanyl Patch [Duragesic Patch*] 50 mcg TD EVERY 3RD DAY PRN 07/10/13 - Past Medical/Surgical History Diabetic: No -: crohns, diverticulitis -: RT foot ,ankle, knee -: Colon resection - Social History Alcohol use: No CD- Drugs: No Caffeine use: Yes Review of Systems General: As per HPI Physical Examination - Physical Exam General: Alert, In no apparent distress, Oriented x3, Obese HEENT: Atraumatic Neck: Supple Respiratory: Clear to auscultation bilaterally, Normal air movement Cardiovascular: Regular rate/rhythm, Normal S1 S2 Gastrointestinal: Normal bowel sounds, No tenderness Musculoskeletal: Swelling, Erythema, Tenderness, Warmth (Left Leg. Necrotic area noted on the dorsal side of the foot. ) Integumentary: No rashes Neurological: Normal speech, Normal tone, Abnormal strength Lymphatics: No axilla or inguinal lymphadenopathy Assessment and Plan - Problems (Diagnosis) (1) Cellulitis Current Visit: Yes Status: Acute Plan: Cellulitis and swelling of the left lower extermity -IV vanc and zosyn -Wound and Blood culture pending -Xray of the foot pending to r.o Osteomylitis -US of BL LE pending to r.o DVT -JANA wrap and wound care Qualifiers: Site of cellulitis: extremity Site of cellulitis of extremity: lower extremity Laterality: left Qualified Code(s): L03.116 - Cellulitis of left lower limb (2) Crohn's disease Current Visit: No Status: Chronic Plan: Stable. S.p Colon resection Discharge Plan: Home Plan to discharge in: 24 Hours - Advance Directives Does patient have a Living Will: No Does patient have a Durable POA for Healthcare: No - Code Status/Comfort Care Code Status Assessed: Yes Critical Care: No
[2017-11-14 15:22] LABS: BUN Blood Urea Nitrogen 10 mg/dL (7-18); Bicarbonate 30 mmol/L (21-32); Glucose Level 84 mg/dL (74-106); Potassium 3.9 mmol/L (3.5-5.1); Sodium Level 140 mmol/L (136-145)
--- NOTE | 2017-11-14 15:27 | RAD REPORT ---
EXAM DESCRIPTION: RAD - Foot Left 3 View - 11/14/2017 2:58 pm CLINICAL HISTORY: Cellulitis, foot pain, nonhealing wound COMPARISON: None. FINDINGS: No fracture, dislocation or periosteal reaction. No acute or destructive bony process. Mi nimal degenerative spurring seen along the dorsum of the tarsal bones. Prominent soft tissue swelling over the dorsum of the foot. No air or foreign body. IMPRESSION: No osteomyelitis or acute bone findings seen. Soft tissue swelling over the dorsum. No air or foreign body.
[2017-11-14] MEDS ORDERED: VANCOMYCIN 2 GM in NA CHLORIDE 0.9% 500 ML IVPB SCH (16:00)
[2017-11-14] MEDS ORDERED: ACETAMINOPHEN 500 MG TAB PO PRN (16:01)
[2017-11-14] MEDS ORDERED: ONDANSETRON 4 MG/2 ML VIAL IV PRN (16:01)
[2017-11-14] MEDS ORDERED: CYCLOBENZAPRINE 10 MG TAB PO PRN (16:18)
[2017-11-14 16:22] VITALS: BMI 41.8
[2017-11-14] MEDS: NA CHLORIDE 0.9% 1,000 ML IV SCH (17:25)
[2017-11-14] MEDS: HYDROCODONE/APAP 5/325 MG TAB PO PRN ×2 (17:25→22:04)
[2017-11-14] MEDS: PIPER/TAZO/NS 3.375gm 3.375 GM/100 ML BAG IVPB SCH (17:32)
[2017-11-14] MEDS: NICOTINE 14 MG/PAT TD SCH (20:49)
[2017-11-14] MEDS ORDERED: VANCOMYCIN 1.5 GM in NA CHLORIDE 0.9% 500 ML IVPB SCH (21:00)
[2017-11-14] MEDS ORDERED: TRAMADOL HCL 50 MG TAB PO PRN (21:31)
--- NOTE | 2017-11-14 22:44 | RAD REPORT ---
EXAM DESCRIPTION: VAS - Extrem Venous W Compress Crow - 11/14/2017 9:45 pm CLINICAL HISTORY: Leg pain and swelling COMPARISON: None. TECHNIQUE: Real-time sonographic evaluation of the bilateral lower extremity deep venous systems was performed. FINDINGS: Normal compressibility, flow augmentation, phasic flow and spontaneous flow are identified in the left and right lower extremity common femoral, superficial femoral, popliteal and posterior t ibial veins. No intraluminal filling defects seen. IMPRESSION: No DVT in either lower extremity.
[2017-11-15] MEDS: PIPER/TAZO/NS 3.375gm 3.375 GM/100 ML BAG IVPB SCH ×3 (00:47→21:52)
[2017-11-15 01:31] LABS: Urine Appearance TURBID; Urine Blood NEGATIVE (NEG); Urine Color DK YELLOW; Urine Glucose NEGATIVE (NEG); Urine Protein NEGATIVE (NEG); Urine Specific Gravity >=1.030 (1.005-1.030); Urine pH 5.5 (5.0-7.0)
[2017-11-15 01:49] LABS: Urine Bilirubin NEGATIVE (NEG); Urine Microscopic Reflex ORDER UMIC
[2017-11-15 01:58] LABS: Urine Amorphous Sediment 4+ /HPF (NONE SEEN); Urine Bacteria <20 /HPF (NONE SEEN); Urine Culture Reflex Order NOT NEEDED; Urine RBC NONE SEEN /HPF (NONE SEEN)
[2017-11-15] MEDS: NA CHLORIDE 0.9% 1,000 ML IV SCH ×3 (03:22→22:01)
[2017-11-15] MEDS: VANCOMYCIN 2 GM in NA CHLORIDE 0.9% 500 ML IVPB SCH ×2 (03:22→16:49)
[2017-11-15 06:01] LABS: Absolute Lymphocytes (CBC) 2.2 K/uL (0.7-4.9); Absolute Monocytes 0.6 K/uL (0.1-1.3); Absolute Neutrophil 3.6 K/uL (1.8-8.0); Basophils % 0.8 % (0-1.3); Eosinophils % 2.8 % (0-4.4); Hematocrit 41.8 % (39.6-49.0); Lymphocytes % 32.5 % (15.3-44.8); MCH 30.2 pg (27.0-35.0); MCV 90.1 fL (80-100); MPV 8.8 fL (7.6-11.3); Monocytes % 9.2 % (3.3-12.3); RBC Red Blood Cell Count 4.64 M/uL (4.33-5.43)
[2017-11-15 06:11] LABS: Albumin 3.1 g/dL (3.4-5.0); Bilirubin Total 0.2 mg/dL (0.2-1.0); Magnesium 2.6 mg/dL (1.8-2.4); Phosphorus 3.3 mg/dL (2.5-4.9); Potassium 3.8 mmol/L (3.5-5.1); Protein, Total 6.6 g/dL (6.4-8.2)
[2017-11-15] MEDS ORDERED: POTASSIUM CL SA 10 MEQ TAB PO ONE (07:00)
[2017-11-15] MEDS: HYDROCODONE/APAP 5/325 MG TAB PO PRN ×5 (07:16→22:42)
[2017-11-15] MEDS: NICOTINE 14 MG/PAT TD SCH (08:07)
[2017-11-15] MEDS: NICOTINE 21 MG/PAT TD SCH (16:51)
--- NOTE | 2017-11-15 17:10 | PN ---
Date of Progress Note: 11/15/2017 Subjective: The patient seen and examined, chart reviewed, and case discussed with RN. The patient reports significant amount of swelling in his left lower extremity as well as pain. Case discussed w [facility] wound care nurse. Review of Systems: Negative except as above. Medications: List reviewed. Objective: Vital Signs: Temperature 97.5, heart rate 80, blood pressure 48/81, respirations 20, O2 100% on room air. General: Awake, alert, oriented x3, in mild distress, morbidly obese male, ill-appearing. CV: S1 and S2. No murmurs. Regular rate and rhythm. Peripheral pulses present. Respiratory: Clear to auscultation bilaterally. No wheezing. Gastrointestinal: Abdomen is soft, nontender, nondistended. Positive bowel sounds. Extremities: No clubbing, cyanosis. Left lower extremity edema. Neurologic: Nonfocal. SKIN: The patient has erythema of the left lower extremity along with an abrasion of the dorsum of t he left foot, it is warm to touch, and tenderness to palpation. Laboratory Data: Sodium 138, potassium 3.8, chloride 105, CO2 31, BUN 10, creatinine 1, glucose 116, calcium 8.2, magnesium 2.8. WBC 6.6, H and H 14 and 41.8, platelets 163, neutrophils 54%. Blood cu ltures pending. Assessment And Plan: A 42-year-old male with: 1.Left lower extremity cellulitis. We will continue with IV antibiotics and followup on cultures. The patient does have abrasion on the dorsum of the left foot, we will place DuoDERM. Continue wound care. Foot x-ray did not show any changes and no fracture. Dopplers negative for deep venous throm bosis. We will elevate and control pain with IV analgesics. 2.History of Crohn disease, status post colon resection, stable. 3.Morbid obesity BMI 41.9. 4.Nicotine dependence with cigarette smoking, uncomplicated. We will continue with nicotine patch. 5.Hypomagnesemia, we will continue to monitor. 6.Gastrointestinal and deep venous thrombosis prophylaxis addressed. SA/MODL Voice ID: [id number] Report ID: [id number]
[2017-11-16] MEDS: PIPER/TAZO/NS 3.375gm 3.375 GM/100 ML BAG IVPB SCH ×2 (00:30→09:42)
[2017-11-16 03:28] LABS: Absolute Lymphocytes (CBC) 2.2 K/uL (0.7-4.9); Absolute Monocytes 0.6 K/uL (0.1-1.3); Absolute Neutrophil 3.6 K/uL (1.8-8.0); Basophils % 1.1 % (0-1.3); Eosinophils % 2.5 % (0-4.4); Hematocrit 41.7 % (39.6-49.0); Lymphocytes % 33.3 % (15.3-44.8); MCH 30.3 pg (27.0-35.0); MCV 90.2 fL (80-100); Monocytes % 8.8 % (3.3-12.3); RBC Red Blood Cell Count 4.63 M/uL (4.33-5.43)
[2017-11-16 03:39] LABS: Bilirubin Total 0.2 mg/dL (0.2-1.0); Magnesium 2.1 mg/dL (1.8-2.4); Phosphorus 3.3 mg/dL (2.5-4.9); Potassium 3.9 mmol/L (3.5-5.1); Protein, Total 6.4 g/dL (6.4-8.2)
[2017-11-16] MEDS: HYDROCODONE/APAP 5/325 MG TAB PO PRN ×2 (03:44→07:39)
[2017-11-16] MEDS: VANCOMYCIN 2 GM in NA CHLORIDE 0.9% 500 ML IVPB SCH (04:09)
[2017-11-16] MEDS ORDERED: POTASSIUM CL SA 10 MEQ TAB PO ONE (06:50)
[2017-11-16] MEDS: NA CHLORIDE 0.9% 1,000 ML IV SCH (08:01)
[2017-11-16 08:28] VITALS: BP 151/95; TEMP 97.5
[2017-11-16] MEDS: NICOTINE 21 MG/PAT TD SCH (09:41)
[2017-11-16 15:46] VITALS: O2SAT 97
--- NOTE | 2017-11-17 11:54 | DS ---
Date of Discharge: 11/16/2017 Admitting Diagnoses: 1.Cellulitis, left lower extremity. 2.Crohn disease. Discharge Diagnoses: 1.Cellulitis, left lower extremity. Cultures negative. 2.History of Crohn disease, status post colon resection. 3.Morbid obesity, BMI 41.9. 4.Nicotine dependence with cigarette smoking, uncomplicated. 5.Hypomagnesemia, replaced. Hospital Course: The patient is a morbidly obese 42-year-old male with past medical history of Crohn disease, comes in with wound on his left foot and resultant cellulitis of his left lower extremity. The patient was started on IV antibiotics and cultures were obtained including wound culture and blo od cultures. Blood cultures were negative. Wound cultures were unable to be obtained as there was n o drainage. Imaging studies including x-ray were done, which did not show any osteomyelitis or acute bone findings. No free air. Lower extremity venous Doppler was done, which ruled out DVT in the lo wer extremity. The patient responded well to IV antibiotics. His white count was normal. The patie nt was not septic. His blood cultures remained negative. His condition improved. Erythema resolved . Wound Care was consulted and the patient was started on DuoDERM for his foot wound. The patient w as then able to ambulate. He was afebrile and was then cleared for discharge. The patient is allerg ic to penicillin, therefore we will finish up a course of Bactrim for 2 weeks. Return to ER for wors ening condition. Followup: Follow up with primary care physician in 2-3 days. Follow up with [facility] i n 1 week. Diet: Heart healthy, calorie restricted diet. Activity: As tolerated. Physical Examination: General: Awake, alert, oriented, no acute distress. CV: S1, S2. No murmurs. Respiratory: Moving well bilaterally. Abdomen: Soft, nontender, nondistended. Positive bowel sounds. Extremities: No clubbing, cyanosis. Trace edema, left foot. Skin: No erythema. Neurologic: Nonfocal. Total time spent discharging the patient was 35 minutes. /VISHAL Voice ID: [id number] Report ID: [id number]
== END 2017-11-16 11:57 | disposition home or self-care (01) | DRG 603 ==
LOC: ER 12:55 → 4TH 14:36
PROVIDERS: ADMIT Family Medicine; ATTEND Family Medicine
DX: L03.116 Cellulitis of left lower limb (principal); K50.90 Crohn's disease, unspecified, without complications; Z68.41 Body mass index [BMI] 40.0-44.9, adult; S91.302A Unspecified open wound, left foot, initial encounter; E66.01 Morbid (severe) obesity due to excess calories; E83.42 Hypomagnesemia; W57.XXXA Bitten or stung by nonvenomous insect and other nonvenomous arthropods, initial encounter; F17.210 Nicotine dependence, cigarettes, uncomplicated; Z88.6 Allergy status to analgesic agent; Z88.0 Allergy status to penicillin; Z90.49 Acquired absence of other specified parts of digestive tract
CPT/HCPCS: 36415; 80048; 80053; 80202; 81003; 81015; 83605; 83735; 84100; 85025; 85652; 87040; 93970; 94660; 96365; 96375; 99285; J2405; J2543; J7030

== ENCOUNTER 2018-05-06 19:58 | Emergency (ER) | payer BC ==
[2018-05-06] MEDS ORDERED: ONDANSETRON 4 MG/2 ML VIAL ONE (20:32)
[2018-05-06] MEDS ORDERED: MORPHINE 4 MG/ML SYR ONE ×2 (20:32→21:12)
[2018-05-06] MEDS ORDERED: NA CHLORIDE 0.9% 1,000 ML ONE (20:32)
[2018-05-06 21:10] LABS: Potassium 3.8 mmol/L (3.5-5.1)
[2018-05-06 21:11] LABS: Absolute Lymphocytes (CBC) 2.8 K/uL (0.7-4.9); Absolute Monocytes 0.8 K/uL (0.1-1.3); Absolute Neutrophil 8.4 K/uL (1.8-8.0); Basophils % 0.8 % (0-1.3); Eosinophils % 1.4 % (0-4.4); Hematocrit 46.4 % (39.6-49.0); Lymphocytes % 22.6 % (15.3-44.8); MPV 9.2 fL (7.6-11.3); Monocytes % 6.3 % (3.3-12.3); RBC Red Blood Cell Count 5.15 M/uL (4.33-5.43)
[2018-05-06 21:32] LABS: Urine Blood NEGATIVE (NEG); Urine Glucose NEGATIVE (NEG); Urine Protein TRACE (NEG); Urine Specific Gravity 1.025 (1.005-1.030); Urine pH 5.5 (5.0-7.0)
--- NOTE | 2018-05-06 22:06 | RAD REPORT ---
EXAM DESCRIPTION: CT - Abdomen Pelvis W Contrast - 05/06/2018 9:45 pm CLINICAL HISTORY: Left lower quadrant pain, history of Crohn's disease and diverticulitis, history o f partial bowel resection COMPARISON: CT imaging June 2016 TECHNIQUE: Biphasic, helical CT imaging of the abdomen and pelvis was performed following 100 ml non -ionic IV contrast. Oral contrast was given. All CT scans are performed using dose optimization technique as appropriate and may include automated exposure control or mA/KV adjustment according to patient size. FINDINGS: No suspicious findings in the lung bases. The liver, spleen, and pancreas show no suspicious findings. Gallbladder and biliary tree are also wi thout suspicious finding. Symmetric renal function is seen with no hydronephrosis or suspicious renal mass. No pyelonephritis o r acute parenchymal process. No bladder abnormalities. No adrenal abnormalities. No dilated bowel loops or bowel wall thickening. Minimal diverticulosis is present. No diverticulitis or acute colon process. Sigmoid anastomosis shows no suspicious finding. No free air, free fluid or inflammatory stranding. No mass or bulky lymphadenopathy. Small fat filled inguinal hernias are pres ent with no acute component. Disc and bony degenerative changes are present. No acute bone process. IMPRESSION: Contrast enhanced CT abdomen and pelvis imaging shows no acute or suspicious finding. Findings are detailed in the body of the report and not significantly different from comparison.
--- NOTE | 2018-05-06 22:16 | ER ---
Nurse's Notes [facility] Name: Dennis Keating Age: 43 yrs Sex: Male : 1975 Arrival Date: 05/06/2018 Time: 19:59 Bed 23 Private MD: Diagnosis: Lower abdominal pain, unspecified Presentation: 05/06 20:10 Presenting complaint: Patient states: lower left quadrant pain since 1900. pt denies ak1 N/V/D. pt describes pain as pressure. Transition of care: patient was not received from another setting of care. Onset of symptoms was May 06, 2018. Risk Assessment: Do you want to hurt yourself or someone else? Patient reports no desire to harm self or others. Initial Sepsis Screen: Does the patient meet any 2 criteria? No. Patient's initial sepsis screen is negative. Does the patient have a suspected source of infection? No. Patient's initial sepsis screen is negative. Care prior to arrival: None. 20:10 Method Of Arrival: Wheelchair ak1 20:10 Acuity: AMNA 3 ak1 Triage Assessment: 20:14 Pain: Complains of pain in left lower quadrant. ak1 Historical: - Allergies: 20:12 Aspirin; ak1 20:12 Toradol; ak1 20:12 PENICILLINS; ak1 20:12 Ibuprofen; ak1 20:12 Cipro PO; ak1 - Home Meds: 20:12 Flexeril Oral [Active]; meloxicam Oral [Active]; [place] Oral [Active]; Tramadol Oral ak1 [Active]; Chantix oral oral [Active]; - PMHx: 20:12 CHRONS; Diverticulitis; Back pain; ak1 - PSHx: 20:12 Knee surgery; Bowel resection; testicular torsion; ak1 - Immunization history:: Adult Immunizations unknown. - Social history:: Smoking status: Patient uses tobacco products, smokes one pack cigarettes per day. - Ebola Screening: : No symptoms or risks identified at this time. Screenin:49 Abuse screen: Denies threats or abuse. Nutritional screening: No deficits noted. tl3 Tuberculosis screening: No symptoms or risk factors identified. Fall Risk None identified. Assessment: 20:49 General: Appears distressed, uncomfortable, obese, well groomed, well developed, well tl3 nourished, Behavior is calm, cooperative, appropriate for age. Pain: Complains of pain in abdomen and left lower quadrant. Neuro: Level of Consciousness is awake, alert, obeys commands, Oriented to person, place, time, situation, Appropriate for age. Cardiovascular: Patient's skin is warm and dry. Respiratory: Airway is patent Respiratory effort is even, unlabored, Respiratory pattern is regular, symmetrical. GI: Bowel sounds present X 4 quads. Abdomen is tender to palpation. : No signs and/or symptoms were reported regarding the genitourinary system. Urine is clear. EENT: No signs and/or symptoms were reported regarding the EENT system. Derm: No signs and/or symptoms reported regarding the dermatologic system. Musculoskeletal: No signs and/or symptoms reported regarding the musculoskeletal system. 21:43 Reassessment: Patient and/or family updated on plan of care and expected duration. Pain tl3 level reassessed. Patient is alert, oriented x 3, equal unlabored respirations, skin warm/dry/pink. pt to CT. 22:09 Reassessment: No changes from previously documented assessment. Patient and/or family tl3 updated on plan of care and expected duration. Pain level reassessed. Patient is alert, oriented x 3, equal unlabored respirations, skin warm/dry/pink. Karen at bedside discussing POC with pt and family. Vital Signs: 20:12 Weight 129.27 kg (R); Height 6 ft. 3 in. (190.50 cm) (R); Pain 9/10; ak1 20:49 BP 122 / 78; Pulse 96; Resp 18; Pulse Ox 97% ; tl3 21:43 BP 113 / 85; Pulse 96; Resp 18; Pulse Ox 99% on R/A; tl3 20:12 Body Mass Index 35.62 (129.27 kg, 190.50 cm) ak1 ED Course: 19:59 Patient arrived in ED. am2 20:10 Triage completed. ak1 20:12 [facility] Sheppard [facility]C [facility] kb 20:12 Jh Cortez MD is Attending Physician. kb 20:12 Ophelia Bardales, ARAMIS is Primary Nurse. tl3 20:12 Arm band placed on Patient placed in an exam room, on a stretcher, Patient notified of ak1 wait time. 20:29 Radiology exam delayed due to lab results not completed at this time. (BUN/Creatinine). ag1 20:31 Missed attempt(s): 20 gauge 22 gauge in right antecubital area. upper arm. Bleeding jp3 controlled, band aid applied, catheter tip intact. 20:36 Radiology exam delayed due to lab results not completed at this time. (BUN/Creatinine). vm2 20:49 Patient has correct armband on for positive identification. Bed in low position. Side tl3 rails up X 1. Pulse ox on. NIBP on. 20:49 No provider procedures requiring assistance completed. Initial lab(s) drawn, by me, tl3 sent to lab. Inserted saline lock: 20 gauge in right wrist, using aseptic technique. Blood collected. 21:42 Inserted saline lock: 20 gauge in right antecubital area, using aseptic technique. IV tl3 discontinued, intact, bleeding controlled, No redness/swelling at site. Pressure dressing applied, IV infiltrated in CT. 21:46 CT Abd/Pelvis - W/Contrast In Process Unspecified. EDMS 22:42 IV discontinued, intact, bleeding controlled, No redness/swelling at site. Pressure tl3 dressing applied. Administered Medications: 21:07 Drug: morphine 4 mg Route: IVP; Infused Over: 2 mins; Site: left wrist; tl3 21:45 Follow up: Response: No adverse reaction; Pain is decreased tl3 21:08 Drug: NS 0.9% 1000 ml Route: IV; Rate: 1000 ml; Site: left wrist; Delivery: Primary tl3 tubing; 22:44 Follow up: IV Status: Completed infusion; IV Intake: 500ml tl3 21:08 Drug: Zofran 4 mg Route: IVP; Site: left wrist; tl3 21:45 Follow up: Response: No adverse reaction tl3 21:30 Drug: fentaNYL (PF) 50 mcg Route: IVP; Infused Over: 2 mins; Site: right wrist; tl3 21:45 Follow up: Response: No adverse reaction tl3 21:55 Drug: morphine 4 mg Route: IVP; Infused Over: 2 mins; Site: left wrist; tl3 22:08 Follow up: Response: No adverse reaction; Pain is unchanged, physician notified tl3 22:30 Drug: Flagyl 500 mg Route: PO; tl3 22:31 Follow up: Response: Medication administered at discharge. tl3 22:30 Drug: LevaQUIN 500 mg Route: PO; tl3 22:31 Follow up: Response: Medication administered at discharge. tl3 22:30 Drug: Demerol 25 mg Route: IVP; Infused Over: 2 mins; Site: right antecubital; tl3 22:31 Follow up: Response: Medication administered at discharge. tl3 Intake: 22:44 IV: 500ml; Total: 500ml. tl3 Outcome: 22:16 Discharge ordered by . vernon 22:42 Discharged to home via wheelchair. tl3 22:42 Condition: stable 22:42 Discharge instructions given to patient, family, Instructed on discharge instructions, follow up and referral plans. medication usage, Demonstrated understanding of instructions, follow-up care, medications, Prescriptions given X 3. 22:43 Patient left the ED. tl3 Signatures: Dispatcher [employer] EDMS Karen Sheppard, [employer] HELPER-C S[employer] HELPER-Elsa Bass, RN RN ak1 Trisha Lee ag1 Darya Wallace Victoria vm2 Ophelia Bardales RN RN tl3 Carlos Cantu jp3
--- NOTE | 2018-05-06 22:17 | EDPHYS ---
Physician Documentation [facility] Name: Dennis Keating Age: 43 yrs Sex: Male : 1975 Arrival Date: 05/06/2018 Time: 19:59 Bed 23 Private MD: ED Physician Jh Cortez HPI: 05/06 22:14 This 43 yrs old Male presents to ER via Wheelchair with complaints of kb Abdominal Pain. 22:14 The patient presents with abdominal pain in the left lower quadrant. Onset: The kb symptoms/episode began/occurred today. The symptoms do not radiate. Associated signs and symptoms: none. The symptoms are described as constant. Modifying factors: The symptoms are alleviated by nothing, the symptoms are aggravated by pressure. Severity of pain: At its worst the pain was moderate in the emergency department the pain is unchanged. The patient has experienced similar episodes in the past, a few times, today's symptoms are similar, to previous diverticulitis. The patient has not recently seen a physician. Historical: - Allergies: 20:12 Aspirin; ak1 20:12 Toradol; ak1 20:12 PENICILLINS; ak1 20:12 Ibuprofen; ak1 20:12 Cipro PO; ak1 - Home Meds: 20:12 Flexeril Oral [Active]; meloxicam Oral [Active]; [place] Oral [Active]; Tramadol Oral ak1 [Active]; Chantix oral oral [Active]; - PMHx: 20:12 CHRONS; Diverticulitis; Back pain; ak1 - PSHx: 20:12 Knee surgery; Bowel resection; testicular torsion; ak1 - Immunization history:: Adult Immunizations unknown. - Social history:: Smoking status: Patient uses tobacco products, smokes one pack cigarettes per day. - Ebola Screening: : No symptoms or risks identified at this time. ROS: 22:09 Constitutional: Negative for fever, chills, and weight loss, Cardiovascular: Negative kb for chest pain, palpitations, and edema, Respiratory: Negative for shortness of breath, cough, wheezing, and pleuritic chest pain, Back: Negative for injury and pain, : Negative for injury, bleeding, discharge, and swelling, MS/Extremity: Negative for injury and deformity, Skin: Negative for injury, rash, and discoloration, Neuro: Negative for headache, weakness, numbness, tingling, and seizure. 22:09 Abdomen/GI: Positive for abdominal pain, Negative for nausea, vomiting, and diarrhea, constipation, abdominal cramps, abdominal distension, anorexia. Exam: 22:13 Constitutional: This is a well developed, well nourished patient who is awake, alert, kb and in no acute distress. Head/Face: Normocephalic, atraumatic. Neck: Trachea midline, no thyromegaly or masses palpated, and no cervical lymphadenopathy. Supple, full range of motion without nuchal rigidity, or vertebral point tenderness. No Meningismus. Chest/axilla: Normal chest wall appearance and motion. Nontender with no deformity. No lesions are appreciated. Cardiovascular: Regular rate and rhythm with a normal S1 and S2. No gallops, murmurs, or rubs. Normal PMI, no JVD. No pulse deficits. Respiratory: Lungs have equal breath sounds bilaterally, clear to auscultation and percussion. No rales, rhonchi or wheezes noted. No increased work of breathing, no retractions or nasal flaring. Skin: Warm, dry with normal turgor. Normal color with no rashes, no lesions, and no evidence of cellulitis. MS/ Extremity: Pulses equal, no cyanosis. Neurovascular intact. Full, normal range of motion. Neuro: Awake and alert, GCS 15, oriented to person, place, time, and situation. Cranial nerves II-XII grossly intact. Motor strength 5/5 in all extremities. Sensory grossly intact. Cerebellar exam normal. Normal gait. 22:13 Abdomen/GI: Inspection: obese Bowel sounds: normal, in all quadrants, Palpation: moderate abdominal tenderness, in the left lower quadrant. Vital Signs: 20:12 Weight 129.27 kg (R); Height 6 ft. 3 in. (190.50 cm) (R); Pain 9/10; ak1 20:49 BP 122 / 78; Pulse 96; Resp 18; Pulse Ox 97% ; tl3 21:43 BP 113 / 85; Pulse 96; Resp 18; Pulse Ox 99% on R/A; tl3 20:12 Body Mass Index 35.62 (129.27 kg, 190.50 cm) ak1 MDM: 20:12 Patient medically screened. kb 22:13 Data reviewed: vital signs, nurses notes. Data interpreted: Pulse oximetry: on room air kb is 99 %. Interpretation: normal. Counseling: I had a detailed discussion with the patient and/or guardian regarding: the historical points, exam findings, and any diagnostic results supporting the discharge/admit diagnosis, lab results, radiology results, the need for outpatient follow up, a family practitioner, to return to the emergency department if symptoms worsen or persist or if there are any questions or concerns that arise at home. 05/06 20:15 Order name: Basic Metabolic Panel; Complete Time: 21:16 kb 05/06 20:15 Order name: CBC with Diff; Complete Time: 21:16 kb 05/06 20:15 Order name: CT Abd/Pelvis - W/Contrast; Complete Time: 22:07 kb 05/06 20:59 Order name: Urine Dipstick--Ancillary (enter results) bb 05/06 20:15 Order name: IV Saline Lock; Complete Time: 21:09 kb 05/06 20:15 Order name: Labs collected and sent; Complete Time: 21:09 kb Administered Medications: 21:07 Drug: morphine 4 mg Route: IVP; Infused Over: 2 mins; Site: left wrist; tl3 21:45 Follow up: Response: No adverse reaction; Pain is decreased tl3 21:08 Drug: NS 0.9% 1000 ml Route: IV; Rate: 1000 ml; Site: left wrist; Delivery: Primary tl3 tubing; 22:44 Follow up: IV Status: Completed infusion; IV Intake: 500ml tl3 21:08 Drug: Zofran 4 mg Route: IVP; Site: left wrist; tl3 21:45 Follow up: Response: No adverse reaction tl3 21:30 Drug: fentaNYL (PF) 50 mcg Route: IVP; Infused Over: 2 mins; Site: right wrist; tl3 21:45 Follow up: Response: No adverse reaction tl3 21:55 Drug: morphine 4 mg Route: IVP; Infused Over: 2 mins; Site: left wrist; tl3 22:08 Follow up: Response: No adverse reaction; Pain is unchanged, physician notified tl3 22:30 Drug: Flagyl 500 mg Route: PO; tl3 22:31 Follow up: Response: Medication administered at discharge. tl3 22:30 Drug: LevaQUIN 500 mg Route: PO; tl3 22:31 Follow up: Response: Medication administered at discharge. tl3 22:30 Drug: Demerol 25 mg Route: IVP; Infused Over: 2 mins; Site: right antecubital; tl3 22:31 Follow up: Response: Medication administered at discharge. tl3 Disposition: 05/06/18 22:16 Discharged to Home. Impression: Lower abdominal pain, unspecified. - Condition is Stable. - Discharge Instructions: Abdominal Pain, Adult, [id number]. - Prescriptions for Flagyl 500 mg Oral Tablet - take 1 tablet by ORAL route every 8 hours for 7 days; 21 tablet. Levaquin 500 mg Oral Tablet - take 1 tablet by ORAL route once daily for 7 days; 7 tablet. Tylenol- Codeine #3 300-30 mg Oral Tablet - take 2 tablets by ORAL route every 6 hours As needed; 20 tablet. - Medication Reconciliation Form, Thank You Letter, Antibiotic Education, Prescription Opioid Use form. - Follow up: Emergency Department; When: As needed; Reason: Worsening of condition. Follow up: Private Physician; When: 2 - 3 days; Reason: Recheck today's complaints, Continuance of care, Re-evaluation by your physician. Addendum: 05/14/2018 03:26 Co-signature as Attending Physician, Jh Cortez MD. g s Signatures: Dispatcher [employer] EDMS Karen Sheppard, BILLET WORKER-C BILLET WORKER-Elsa Bass, RN RN ak1 Jh Cortez MD MD Ophelia Bardales, ARAMIS RN tl3 Corrections: (The following items were deleted from the chart) 05/06 22:43 22:16 05/06/2018 22:16 Discharged to Home. Impression: Lower abdominal pain, tl3 unspecified. Condition is Stable. Forms are Medication Reconciliation Form, Thank You Letter, Antibiotic Education, Prescription Opioid Use. Follow up: Emergency Department; When: As needed; Reason: Worsening of condition. Follow up: Private Physician; When: 2 - 3 days; Reason: Recheck today's complaints, Continuance of care, Re-evaluation by your physician. kb
[2018-05-06] MEDS ORDERED: FENTANYL CITR 100 MCG/2 ML ONE (22:25)
[2018-05-06] MEDS ORDERED: MEPERIDINE HCL 25 MG/0.5 ML ONE (22:32)
[2018-05-06] MEDS ORDERED: levoFLOXacin 500 MG TAB ONE (22:32)
[2018-05-06] MEDS ORDERED: metroNIDAZOLE 500 MG TABLET ONE (22:32)
[2018-05-06 23:08] VITALS: BP 113/85; O2SAT 99
== END 2018-05-06 22:43 | disposition home or self-care (01) ==
LOC: ER 19:58
DX: R10.32 Left lower quadrant pain (principal); F17.210 Nicotine dependence, cigarettes, uncomplicated; Z88.0 Allergy status to penicillin; Z88.5 Allergy status to narcotic agent; Z88.6 Allergy status to analgesic agent; Z88.8 Allergy status to other drugs, medicaments and biological substances
CPT/HCPCS: 36415; 74177; 80048; 81003; 85025; J2175; J2405; J3010; J7030; Q9967

== ENCOUNTER 2018-07-24 14:21 | Emergency (ER) | payer BC ==
--- OUTSIDE RECORDS SUMMARY | 2018-07-24 14:23 | XMS REPORT ---
:1975 [facility] Address [address] [place] [address] [place] [id number] Care Team Providers Name Role Phone Unavailable Unavailable Unavailable Problems This patient has no known problems. Allergies, Adverse Reactions, Alerts This patient has no known allergies or adverse reactions. Medications This patient has no known medications.
--- OUTSIDE RECORDS SUMMARY | 2018-07-24 14:23 | XMS REPORT | Continuity of Care Document ---
:1975 Author Organization [facility] Address [address] [place] [phone] Phone Unavailable Care Team Providers Name Role Phone KYE BAER Primary Care Physician Insurance Providers Guarantor Zachary Keating Address [address] [place] [address] Email [email or web address] Payer Self Pay Insurance Subscriber's Name Zachary Keating Relationship Self / Same As Patient Group Number NA Group Name NA Advance Directives Directive Response Recorded Date/Time Advance Directive on File No 06/27/18 2:13am Patient/Family Given Education Material R/T Y - 06/27/18...MK 06/27/18 2: 45am Directives? Chief Complaint and Reason for Visit Chief Complaint General Complaint Reason for Visit Abdominal pain [id number] Problems Active ProblemsNo active problem information available. Past Problems Medical Problem Onset Date Status Abdominal pain Unknown Acute Abdominal pain Unknown Acute Abdominal pain Unknown Acute Abdominal pain Unknown Acute Constipation Unknown Acute Laceration of fifth toe, right Unknown Acute Medications No medication information available. Social History Social History Problem Response Recorded Date/Time Onset Date Status Hx Physical Abuse No 06/27/2018 2:13am Not Applicable Not Applicable Smoking Status Start Date Stop Date Current every day smoker Hospital Discharge Instructions No hospital discharge instruction information available. Plan of Care Discharge Date 06/27/18 5:26am Instructions/Education Provided Laceration Care, Adult Abdominal Pain, Adult Forms Provided Prescription Opioid Use Portal Welcome Letter Prescriptions See Medication Section Referrals KYE BAER Address: [address] [place] [id number] Additional Instructions/Education Bactrim DS 1 tab. twice a day Tylenol #3 1 tab. every 8 hours as needed FOLLOW UP WITH PCP FOR SUTURE REMOVAL IN 10-12 DAYS RETURN IF PAIN INCREASES, FEVER OR NOT TOLERATING FLUIDS Functional Status No functional status information available. Allergies, Adverse Reactions, Alerts Allergen Type Severity Reaction Status Last Updated Aspirin ([id number]) Allergy Unknown HIVES Active 03/12/17 Ibuprofen ([id number]) Allergy Unknown HIVES Active 03/12/17 Ciprofloxacin ([id number]) Allergy Unknown RESISTANCE TO Active 03/12/17 Penicillins ([id number]) Allergy Unknown HIVES Active 03/12/17 Ketorolac Tromethamine Allergy Unknown VOMITING Active 03/12/17 ([id number]) Immunizations No immunization information available. Vital Signs Acute Vital Signs Vital Response Date/Time Blood Pressure 141/75 mm Hg 06/27/2018 5:09am Pulse Pulse Rate (adult) 84 beats per minute (60 - 100) 06/27/2018 5:09am Respiratory Rate 18 breaths per minute (10 - 24) 06/27/2018 5:09am Temperature Source Oral 06/27/2018 5:09am Height 6 ft 2 in 06/27/2018 2:13am Weight 330 lb 06/27/2018 2:13am Body Mass Index 42.4 kg/m^2 06/27/2018 2:13am Results Laboratory Results Test Name Result Units Flags Reference Collection Result Comments Date/Time Date/Time White Blood Count 9.7 K/ul 4.0-12.3 06/27/2018 06/27/2018 3:00am 3:40am Red Blood Count 5.07 M/ul 3.80-5.80 06/27/2018 06/27/2018 3:00am 3:40am Hemoglobin 15.5 g/dl 11.67-17.2 06/27/2018 06/27/2018 2 3:00am 3:40am Hematocrit 46.8 % 35.0-51.0 06/27/2018 06/27/2018 3:00am 3:40am Mean Corpuscular 92.3 fl 78-96 06/27/2018 06/27/2018 Volume 3:00am 3:40am Mean Corpuscular 30.5 pg 26.8-33.4 06/27/2018 06/27/2018 Hemoglobin 3:00am 3:40am Mean Corpuscular 33.1 g/dl 32.3-36.7 06/27/2018 06/27/2018 Hemoglobin Concent 3:00am 3:40am Red Cell 12.6 % 11.6-15.4 06/27/2018 06/27/2018 Distribution Width 3:00am 3:40am Platelet Count 202 K/ul 115-328 06/27/2018 06/27/2018 3:00am 3:40am Mean Platelet 9.2 fl 8.4-11.8 06/27/2018 06/27/2018 Volume 3:00am 3:40am Neutrophils (%) 59.4 % 44.7-82.4 06/27/2018 06/27/2018 (Auto) 3:00am 3:40am Lymphocytes (%) 28.4 % 10.0-50.0 06/27/2018 06/27/2018 (Auto) 3:00am 3:40am Monocytes (%) 8.9 % 3.9-13.4 06/27/2018 06/27/2018 (Auto) 3:00am 3:40am Eosinophils (%) 1.9 % 0.0-6.43 06/27/2018 06/27/2018 (Auto) 3:00am 3:40am Basophils (%) 1.4 % H 0.0-0.72 06/27/2018 06/27/2018 (Auto) 3:00am 3:40am Urine Color YELLOW 06/27/2018 06/27/2018 2:55am 4:17am Urine Appearance CLEAR CLEAR 06/27/2018 06/27/2018 2:55am 4:17am Urine Glucose NEGATIVE NEGATIVE 06/27/2018 06/27/2018 2:55am 4:17am Urine Bilirubin NEGATIVE NEGATIVE 06/27/2018 06/27/2018 2:55am 4:17am Urine Ketones NEGATIVE NEGATIVE 06/27/2018 06/27/2018 2:55am 4:17am Urine Specific 1.020 1.003-1.03 06/27/2018 06/27/2018 [place] 0 2:55am 4:17am Urine Blood NEGATIVE NEGATIVE 06/27/2018 06/27/2018 2:55am 4:17am Urine pH 6.000 5-9 06/27/2018 06/27/2018 2:55am 4:17am Urine Protein NEGATIVE NEGATIVE 06/27/2018 06/27/2018 2:55am 4:17am Urine Urobilinogen 0.2 E.U./d 0.2-1.0 06/27/2018 06/27/2018 L 2:55am 4:17am Urine Nitrate NEGATIVE NEGATIVE 06/27/2018 06/27/2018 2:55am 4:17am Urine Leukocyte NEGATIVE NEGATIVE 06/27/2018 06/27/2018 [place] 2:55am 4:17am Urine RBC NONE SEEN /hpf 0-5 06/27/2018 06/27/2018 2:55am 4:17am Urine WBC NONE SEEN /hpf 0-5 06/27/2018 06/27/2018 2:55am 4:17am Urine Epithelial NONE SEEN /hpf 0-5 06/27/2018 06/27/2018 Cells 2:55am 4:17am Urine Bacteria None /hpf None 06/27/2018 06/27/2018 Detected Detect 2:55am 4:17am Urine Casts NONE SEEN /lpf None 06/27/2018 06/27/2018 Detect 2:55am 4:17am Urine Culture NO 06/27/2018 06/27/2018 Reflexed 2:55am 4:17am Random Glucose 105 mg/dL 74-106 06/27/2018 06/27/2018 3:00am 3:57am Blood Urea 11 mg/dL 6-20 06/27/2018 06/27/2018 Nitrogen 3:00am 3:57am Serum Osmolality 276 L 280-300 06/27/2018 06/27/2018 3:00am 3:57am Creatinine 1.0 mg/dL 0.70-1.20 06/27/2018 06/27/2018 3:00am 3:57am Glomerular > 60.00 06/27/2018 06/27/2018 GFR RESULTS ARE REPORTED IN mL/min/1.73m2. Filtration Rate 3:00am 3:57am Calc Normal GFR: >60mL/min Moderately decreased GFR: 30-59 mL/min Severely decreased GFR: 15-29 mL/min Kidney Failure (or Dialysis): <15 mL/min The calculated eGFR is not valid for patients younger than 18 years or older than 75 years. BUN/Creatinine 11.0 L 12-20 06/27/2018 06/27/2018 Ratio 3:00am 3:57am Sodium Level 138 mmol/L 135-145 06/27/2018 06/27/2018 3:00am 3:57am Potassium Level 4.2 mmol/L 3.5-5.2 06/27/2018 06/27/2018 3:00am 3:57am Chloride Level 98 mmol/L 98-108 06/27/2018 06/27/2018 3:00am 3:57am Carbon Dioxide 29 mmol/L 21-32 06/27/2018 06/27/2018 Level 3:00am 3:57am Anion Gap 15.2 mEq/L 12-06/27/2018 06/27/2018 3:00am 3:57am Calcium Level 9.3 mg/dL 8.6-10.0 06/27/2018 06/27/2018 3:00am 3:57am Total Protein 7.3 g/dL 6.6-8.7 06/27/2018 06/27/2018 3:00am 3:57am Albumin 4.2 g/dL 3.5-5.2 06/27/2018 06/27/2018 3:00am 3:57am Globulin 3.1 gm/dL 06/27/2018 06/27/2018 3:00am 3:57am Albumin/Globulin 1.4 >1.0 06/27/2018 06/27/2018 Ratio 3:00am 3:57am Total Bilirubin < 0.3 mg/dL 0.0-1.2 06/27/2018 06/27/2018 3:00am 3:57am Aspartate Amino 21 U/L 15-40 06/27/2018 06/27/2018 Transf (AST/SGOT) 3:00am 3:57am Alanine 23 U/L 0-41 06/27/2018 06/27/2018 Aminotransferase 3:00am 3:57am (ALT/SGPT) Total Alkaline 69 U/L 40-130 06/27/2018 06/27/2018 Phosphatase 3:00am 3:57am Creatine Kinase 305 U/L H 20-200 06/27/2018 06/27/2018 3:00am 3:57am Troponin I < 0.30 ng/mL 0.0-0.5 06/27/2018 06/27/2018 Published clinical studies have shown elevations of cTnI in 3:00am 4:00am patients with myocardial injury, as seen in unstable angina pectoris, cardiac contusions, and heart transplants. Elevations have also been seen in patients with rhabdomyolysis and polymyositis. Elevated troponin levels point to myocardial injury, but are not necessarily indicative of an ischemic mechanism. The term NE should be used when there is evidence of cardiac damage, as detected by marker proteins in a clinical setting consistent with myocardial ischemia. If the clinical circumstance suggests that an ischemic mechanism is unlikely, other causes of cardiac injury should be considered. For diagnostic purposes, the results should always be assessed in conjunction with the patient's medical history, clinical examination and other findings. Creatine Kinase MB 6.0 ng/ml H 0.0-3.6 06/27/2018 06/27/2018 3:00am 4:00am DIAGNOSTIC CITERIA: CKMB CKMB RELATIVE INDEX SUGGESTIVE OF NON-AMI < or=5 N/A MALDONADO ZONE (INCONCLUSIVE) > 5 < or=4 SUGGESTIVE OF AMI >5 > 4 Procedures Procedure Status Date Provider(s) Computed tomography of head without contrast Completed 06/27/18 AMY ALEXANDER MD X-ray of chest, single view Completed 06/27/18 AMY ALEXANDER MD X-ray of right foot, two views Completed 06/27/18 AMY ALEXANDER MD Computed tomography of abdomen and pelvis with Completed 06/27/18 AMY ALEXANDER MD contrast Encounters Encounter Location Arrival/Admit Date Discharge/Depart Date Attending Provider Departed [place] 06/27/18 1:56am 06/27/18 5:26am AMY ALEXANDER Emergency Room Rey Wilkerson MD [facility] Recent Diagnosis
[2018-07-24] MEDS ORDERED: DIAZEPAM 5 MG TABLET ONE (15:43)
[2018-07-24] MEDS ORDERED: ONDANSETRON 4 MG (ODT) TAB ONE (15:43)
[2018-07-24] MEDS ORDERED: DEXAMETHASONE 10 MG/ML VIAL ONE (15:43)
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
[2018-07-24 16:01] VITALS: TEMP 97.5; O2SAT 98
[2018-07-24 16:02] VITALS: BP 135/100
== END 2018-07-24 15:56 | disposition home or self-care (01) ==
LOC: ER 14:21
DX: R10.32 Left lower quadrant pain (principal); Z88.6 Allergy status to analgesic agent; Z88.1 Allergy status to other antibiotic agents; Z88.0 Allergy status to penicillin; Z72.0 Tobacco use
CPT/HCPCS: 96372; 99283; J1100

== ENCOUNTER 2022-12-27 00:01 | Inpatient (IN) | payer BC, OTHER, SELFPAY ==
--- OUTSIDE RECORDS SUMMARY | 2022-12-27 00:05 | XMS REPORT | Continuity of Care Document ---
:[address] [facility] t Address [address] [facility] [place] [address] Care Team Providers Name Role Phone KYE ABER Primary Care Physician Unavailable Kane Huffman MD Attending Clinician KANE HUFFMAN Attending Clinician Unavailable ALBER REID Attending Clinician Unavailable ANA NEWELL Attending Clinician Unavailable LESTER ARTEAGA Attending Clinician Unavailable WAQAR_Ekaterina Attending Clinician Unavailable Werner Marshall Attending Clinician [phone] Eva Ramirez MD Attending Clinician EVA RAMIREZ Attending Clinician Unavailable Doctor Unassigned, Lago Attending Clinician Unavailable KANE HUFFMAN Admitting Clinician Unavailable ADALBERTO Admitting Clinician Unavailable Payers Payer Name Policy Type Policy Number Effective Date Expiration Date Laura CARDOSO/BERNICE XIAO [id number] 2021 ADV CHOICE PPO 00:00:00 [facility] [id number] (MEDICARE REPLACEMENT/ADVANTA GE - PPO) Problems Condition Condition Condition Status Onset Resolution Last Treating Co mments Source Name Details Category Date Date Treatment Clinician Date Bipolar Bipolar Problem Active [place] disorder Disorder 1-20 Commun i 00:00: ty 00 [facility] Depressive Depressive Problem Active S [place] disorder Disorder -20 Commun i 00:00: ty 00 [facility] Attention Attention Problem Active [place] annemarie deficit Deficit -20 Communi hyperactiv Hyperactiv 00:00: ty ity ity 00 [facility] disorder Disorder l [facility] Hypertensi Hypertensi Problem Active S [place]en[place] ve ve 1-20 Communi disorder Disorder 00:00: ty 00 [facility] Chronic Chronic Problem Active [place] obstructiv Obstructiv 1-20 Co mmuni e lung e Lung 00:00: ty disease Disease 00 [facility] Crohn's Crohn's Problem Active [place] disease Disease -20 Communi 00:00: ty 00 [facility] Diverticul Diverticul Problem Active S [place] itis itis 1-20 Communi 00:00: ty 00 [facility] Osteoarthr Osteoarthr Problem Active S [place]en[place] itis itis 1-20 Communi 00:00: ty 00 [facility] History of History of Problem Active S [place]en[place] intravenou Intravenou 1-20 Co mmuni s drug s Drug 00:00: ty abuse Abuse 00 [facility] No known No known Disease Unive rs active active ity of problems problems [facility] Allergies, Adverse Reactions, Alerts Allergy Allergy Status Severity Reaction(s) Onset Inactive Treating Comm ents Source Name Type Date Date Clinician Ciproflo Propensi Active Other - See U nivers xacin ty to comments 07-24 ity of adverse 00:00: [place] reaction 00 Medical s Branch CIPROFLO DRUG Active Other-Cmnt Univ ers XACIN INGREDI 407 ity of 00:00: [place] 00 Medical Branch Aspirin Propensi Active Rash 2014-04 Univers ty to 0-03 ity of adverse 00:00: [place] reaction 00 Medical s Branch Ibuprofe Propensi Active Rash 2014-04 Univer s n ty to 0-03 ity of adverse 00:00: [place] reaction 00 Medical s Branch Penicill Propensi Active Unknown - 2014-04 Uni vers in ty to See comments 0-03 ity of adverse 00:00: [place] reaction 00 Medical s Branch Ketorola Propensi Active Unknown - 2014-04 Uni vers c ty to See comments 0-03 ity of adverse 00:00: [place] reaction 00 Medical s Branch ASPIRIN DRUG Active Rash 2014-04 Univers INGREDI 0-03 ity of 00:00: [place] 00 Medical Branch IBUPROFE DRUG Active Rash 2014-04 Univers N INGREDI 0-03 ity of 00:00: [place] 00 Medical Branch PENICILL DRUG Active Unknown-Cmnt 2014-04 Un ovidio IN INGREDI 0-03 ity of 00:00: [place] 00 Medical Branch KETOROLA DRUG Active Unknown-Cmnt 2014-04 Un ovidio C INGREDI 0-03 ity of 00:00: [place] 00 Medical Branch TORADOL Allergy Active Nausea [place] to Communi substanc ty e [facility]ospita [facility] Clinics Aspirin Allergy Active Nausea [place] to Communi substanc ty e Hospita l Clinics Ibuprofe Allergy Active Nausea [place] n to Communi substanc ty e Hospita l Clinics PENICILL Allergy Active Hives [place] INS to Communi substanc ty e Hospita l Clinics Social History Social Habit Start Date Stop Date Quantity Comments Source Gender identity [facility] [place] Sexual orientation Univer sity [facility] [place] Exposure to Not sure [facility] SARS-CoV-2 (event) [facility] History of tobacco Cigarette Smoker Romance of use [facility] History of Social 2018-10-27 2018-10-27 Univers ity of function 00:00:00 00:00:00 [facility] Cigarette 2018-07-11 2018-07-11 University of pack-years 00:00:00 00:00:00 [facility] Tobacco use and 2018-07-11 2018-07-11 User of Universit y of exposure 00:00:00 00:00:00 smokeless [facility] tobacco [place] Cigarettes smoked 2018-07-11 2018-07-11 Univers ity of current (pack per 00:00:00 00:00:00 ) - Reported Branch Sex [birth year] Universit y of 00:00:00 00:00:00 [facility] Smoking Status Start Date Stop Date Source Smokes tobacco daily 2018-07-11 00:00:00 Univers ity of [place] [facility] Medications Ordered Filled Start Stop Current Ordering Indication Dosage Frequency Signature Comments Components Source Medication Medication Date Date Medication? Clinician (SIG) Name Name methocarbam Yes 1000mg 1,000 mg, Univers oL 11-22 Intravenou ity of (ROBAXIN) 03:00: s, Q8H, [place] injection 00 First dose Medi derrick 1,000 mg on Sat Branch 11/21/22 at 2200, Until Discontinu ed, Routine HYDROmorpho 2022- No 1mg 1 mg, Slow Univers ne 11-21 IV Push, ity of (DILAUDID) 20:45: 22:14 ONCE, 1 [place] as injection 1 00 :00 dose, On Medi derrick mg 11/21/22 Branch at 1545, SAM
Us e approved by (Faculty): ADC PROVIDER acetaminoph 2022- No 1000mg 1,000 mg, Univers en ADULT 11-21 IV ity of (OFIRMEV) 20:00: 20:02 [place]fusion, [place] injection 00 :00 at 400 Medical 1,000 mg mL/hr Branch Administer over 15 Minutes, ONCE, 1 dose, On 11/21/22 at 1500, Routine
Indicatio n: Non-periop erative Patient
Approved by: Per Policy (NPO Status) morpHINE (4 2022- No 4mg 4 mg, Slow Univers mg/mL) 11-21 IV Push, ity of injection 4 20:00: 19:44 ONCE, 1 [place] mg 00 :00 dose, On Medical 11/21/22 Branch at 1500, SAM cyclobenzap Yes cyclobenza Univers rine 10 mg 11-21 yann 10 ity o f tablet 17:05: mg tablet Take 1 Medical tablet Branch twice a day by oral route as directed for 28 days. acetaminoph Yes [id number] 1{tbl} Take 1 Un ovidio en-codeine 11-21 tablet by ity of 300-30 mg 00:00: mouth [place] tablet 00 every 6 Medical (six) Branch hours as needed for Pain (scale 4-6) for up to 15 doses. Indication s: acute pain cyclobenzap 2022- Yes [id number] 10mg Take 1 Univers rine 10 mg 8 08-11 tablet by ity of tablet 00:00: 04:59 mouth in [place] 00 :00 the Medical morning Branch and 1 tablet at noon and 1 tablet in the evening. Do all this for 5 days. clindamycin 2020-04- No 900mg 900 mg, IV Univers in 5 % 0-28 - Piggyback, ity of dextrose 06:15: 05:51 ONCE, 1 [place] (CLEOCIN) 00 :00 dose, On Medica l 900 mg/50 Yolanda Branch mL IV 02/13/21 piggyback at 0115, RTU 900 mg Administer over 30 Minutes, 50 mL
R olga for Anti-Infec tive: Documented Infection< br>Documen sangeetha Infection Site: Skin / Soft Tissue
Duration of Therapy: Other (see Comments)< br>Restric sangeetha use approved by: ADC PROVIDER FENTanyl 2020-04- No 50ug 50 mcg, Un ovidio (SUBLIMAZE 0-28 10-28 Slow IV ity o f (PF)) 05:15: 04:10 Push, [place] injection 00 :00 ONCE, 1 Medical 50 mcg dose, On Branch Yolanda 02/13/21 at 0015, Routine FENTanyl PF 2020-04- No 50ug 50 mcg, Un ovidio (SUBLIMAZE 0-28 10-28 Slow IV ity o f (PF)) 04:39: 04:45 Push, [place] injection 00 :00 ONCE, 1 Medical 50 mcg dose, On Branch 02/12/21 at 2345, STAT clindamycin 2020-04 Yes [id number] 300mg Take 1 Univers 300 mg 0-28 capsule by ity of capsule 00:00: mouth 4 [place] 00 (four) Medical times Branch daily. gabapentin 2020-04 Yes [id number] 300mg Take 1 Univers 300 mg 0-28 capsule by ity of capsule 00:00: mouth 3 [place] 00 (three) Medical times Branch daily. clindamycin 2020-04 Yes [id number] 300mg Take 1 Univers 300 mg 0-28 capsule by ity of capsule 00:00: mouth 4 [place] 00 (four) Medical times Branch daily. gabapentin 2020-04 Yes [id number] 300mg Take 1 Univers 300 mg 0-28 capsule by ity of capsule 00:00: mouth 3 [place] 00 (three) Medical times Branch daily. proMETHazin Yes [id number] 25mg Take 1 Univers e 25 mg 4-07 tablet by ity of tablet 00:00: mouth [place] 00 every 6 Medical (six) Branch hours as needed for Nausea and Vomiting (N/V). traMADOL Yes [id number] 50mg Take 1 Uni vers (ULTRAM) 50 4-07 tablet by ity of mg tablet 00:00: mouth [place] 00 every 6 Medical (six) Branch hours as needed for Pain (scale 4-6). proMETHazin Yes [id number] 25mg Take 1 Univers e 25 mg 4-07 tablet by ity of tablet 00:00: mouth [place] 00 every 6 Medical (six) Branch hours as needed for Nausea and Vomiting (N/V). traMADOL Yes [id number] 50mg Take 1 Uni vers (ULTRAM) 50 4-07 tablet by ity of mg tablet 00:00: mouth [place] 00 every 6 Medical (six) Branch hours as needed for Pain (scale 4-6). proMETHazin Yes [id number] 25mg Take 1 Univers e 25 mg 4-07 tablet by ity of tablet 00:00: mouth [place] 00 every 6 Medical (six) Branch hours as needed for Nausea and Vomiting (N/V). traMADOL Yes [id number] 50mg Take 1 Uni vers (ULTRAM) 50 4-07 tablet by ity of mg tablet 00:00: mouth [place] 00 every 6 Medical (six) Branch hours as needed for Pain (scale 4-6). meloxicam Yes meloxicam Uni vers 7.5 mg 3-25 7.5 mg ity of tablet 09:32: tablet [place] [facility] ketorolac 2018- Yes 10mg Take 10 mg Un ovidio 10 mg 3-25 by mouth. ity of tablet 09:32: [place] [address] Medical Branch budesonide- 2018-0 Yes Symbicort U nivers formoterol 3-25 160 ity of 160-4.5 09:32: mcg-4.5 [place] mcg/actuati 26 mcg/actuat Me dical on inhaler ion HFA Branch aerosol inhaler cyclobenzap Yes cyclobenza Univers rine 10 mg 3-25 yann 10 ity o f tablet 09:32: mg tablet [place] Take 1 Medical tablet Branch twice a day by oral route as directed for 28 days. meloxicam Yes meloxicam Uni vers 7.5 mg 3-25 7.5 mg ity of tablet 09:32: tablet [place] [address] Medical Branch ketorolac Yes 10mg Take 10 mg Un ovidio 10 mg 3-25 by mouth. ity of tablet 09:32: [place] [address] Medical Branch budesonide- Yes Symbicort U nivers formoterol 3-25 160 ity of 160-4.5 09:32: mcg-4.5 [place] mcg/actuati 26 mcg/actuat Me dical on inhaler ion HFA Branch aerosol inhaler cyclobenzap Yes cyclobenza Univers rine 10 mg 3-25 yann 10 ity o f tablet 09:32: mg tablet [place] Take 1 Medical tablet Branch twice a day by oral route as directed for 28 days. meloxicam Yes meloxicam Uni vers 7.5 mg 3-25 7.5 mg ity of tablet 09:32: tablet [place] [address] Medical [place] ketorolac Yes 10mg Take 10 mg Un ovidio 10 mg 3-25 by mouth. ity of tablet 09:32: [place] [address] Medical [place] budesonide- Yes Symbicort U nivers formoterol 3-25 160 ity of 160-4.5 09:32: mcg-4.5 [place] mcg/actuati 26 mcg/actuat Me dical on inhaler ion HFA Branch aerosol inhaler HYDROcodone Yes 2{tbl} Take 2 Un ovidio -acetaminop 3-25 Tabs by ity o f hen (NORCO) 09:22: mouth [place] 10-325 mg 33 daily. Medical tablet Branch HYDROcodone Yes 2{tbl} Take 2 Un ovidio -acetaminop 3-25 Tabs by ity o f hen (NORCO) 09:22: mouth [place] 10-325 mg 33 daily. Medical tablet Branch HYDROcodone Yes 2{tbl} Take 2 Un ovidio -acetaminop 3-25 Tabs by crystal miller (NORCO) 09:22: mouth [place] 10-325 mg 33 daily. Medical tablet Branch albuterol Yes [id number] 2{puff} Inhale 2 Univers 90 3-25 Puffs ity of mcg/actuati 00:00: every 6 [place] as on inhaler 00 (six) Medical hours as Branch needed for Wheezing or Shortness of Breath. albuterol Yes [id number] 2{puff} Inhale 2 Univers 90 3-25 Puffs ity of mcg/actuati 00:00: every 6 [place] as on inhaler 00 (six) Medical hours as Branch needed for Wheezing or Shortness of Breath. albuterol Yes [id number] 2{puff} Inhale 2 Univers 90 3-25 Puffs ity of mcg/actuati 00:00: every 6 [place] as on inhaler 00 (six) Medical hours as Branch needed for Wheezing or Shortness of Breath. CELECOXIB 2014-04 Yes Take by EnerG2e rs (CELEBREX 0-03 mouth. ity of ORAL) 16:33: [address] CELECOXIB 2014-04 Yes Take by EnerG2e rs (CELEBREX 0-03 mouth. ity of ORAL) 16:33: [address] CELECOXIB 2014-04 Yes Take by Unive rs (CELEBREX 0-03 mouth. ity of ORAL) 16:33: [address] albuterol albuterol No albuterol [place] sulfate 2.5 sulfate 2.5 sulfate Communi mg/3 mL mg/3 mL 2.5 mg/3 ty (0.083 %) (0.083 %) mL (0.083 Hospita solution solution %) l for for solution Clinics nebulizatio nebulizatio for n Take 2 n Take 2 nebulizati vials daily vials daily on Take 2 vials daily albuterol albuterol No albuterol [place] sulfate HFA sulfate HFA sulfate Communi 90 90 HFA 90 ty mcg/actuati mcg/actuati mcg/actuat Hospita on aerosol on aerosol ion l inhaler 2 inhaler 2 aerosol Cl inics puffs Q4-6 puffs Q4-6 inhaler 2 hrs hrs puffs Q4-6 hrs alprazolam alprazolam No alprazolam [place] 1 mg tablet 1 mg tablet 1 mg C ommuni TAKE ONE TAKE ONE tablet ty (1) (1) TAKE ONE Hospita TABLET(S) TABLET(S) (1) l BY MOUTH BY MOUTH TABLET(S) Cl inics ONCE A DAY ONCE A DAY BY MOUTH NEEDED. NEEDED. ONCE A DAY NEEDED. clindamycin clindamycin No clindamyci [place] HCl 300 mg HCl 300 mg n HCl 300 Communi capsule capsule mg capsule ty TAKE 1 TAKE 1 TAKE 1 Hospita CAPSULE BY CAPSULE BY CAPSULE BY l MOUTH FOUR MOUTH FOUR MOUTH FOUR Clinics TIMES DAILY TIMES DAILY TIMES DAILY dextroamphe dextroamphe No dextroamph [place] tamine-amph tamine-amph etamine-am Communi etamine 20 etamine 20 phetamine ty mg tablet mg tablet 20 mg Hosp sierra TAKE ONE TAKE ONE tablet l (1) (1) TAKE ONE Clinics TABLET(S) TABLET(S) (1) BY MOUTH BY MOUTH TABLET(S) EVERY EVERY BY MOUTH MORNING. MORNING. EVERY MORNING. prednisone prednisone No prednisone [place] 20 mg 20 mg 20 mg Communi tablet TAKE tablet TAKE tablet ty 1 TABLET BY 1 TABLET BY TAKE 1 Hospita MOUTH MOUTH TABLET BY l DAILY. DAILY. MOUTH Clinics DAILY. Vital Signs Vital Name Observation Time Observation Value Comments Source Systolic blood 2022-11-21 22:14:00 122 mm[Hg] [facility] Diastolic blood 2022-11-21 22:14:00 82 mm[Hg] [facility] Heart rate 2022-11-21 22:14:00 76 /min [facility] Respiratory rate 2022-11-21 22:14:00 16 /min [facility] Oxygen saturation in 2022-11-21 22:14:00 96 /min [facility] Arterial blood by [facility] Pulse oximetry [place] Body temperature 2022-11-21 18:37:00 36.83 Char [facility] Body height 2022-11-21 18:37:00 190.5 cm [facility] Body weight 2022-11-21 18:37:00 154.223 kg [facility] BMI 2022-11-21 18:37:00 42.50 kg/m2 [facility] BP Diastolic 2021-05-08 00:00:00 82 mm[Hg] [facility] s Height 2021-05-08 00:00:00 74 [in_i] [facility] s BMI (Body Mass 2021-05-08 00:00:00 41.1 kg/m2 [facility] s BP Systolic 2021-05-08 00:00:00 124 mm[Hg] [facility] Body Weight 2021-05-08 00:00:00 5120 [oz_av] [facility] s Systolic blood 2021-02-13 05:30:00 115 mm[Hg] Univer sity of pressure [facility] Diastolic blood 2021-02-13 05:30:00 83 mm[facility]Hg[facility] 2021-02-13 05:30:00 78 /min [facility] Respiratory rate 2021-02-13 05:30:00 19 /min [facility] Oxygen saturation in 2021-02-13 05:30:00 97 /min [facility] Arterial blood by [facility] Pulse oximetry [place] Body temperature 2021-02-13 03:30:00 36.94 Char [facility] Body height 2021-02-13 03:30:00 188 cm [facility] Body weight 2021-02-13 03:30:00 137.939 kg [facility] BMI 2021-02-13 03:30:00 39.04 kg/m2 [facility] Procedures Procedure Date / Time Performed Performing Clinician Chanelle e CT LUMBAR SPINE WO 2022-11-21 20:32:53 Kane Huffman [facility] CONTRAST [facility] CT THORAX WO CONTRAST 2022-11-21 20:32:53 Kane Huffman [facility] CONSENT/REFUSAL FOR 2022-11-21 18:27:20 [facility]igned, [facility] Name Medical Branch TREATMENT URINALYSIS 2021-02-13 04:20:00 Eva Ramirez [facility] BASIC METABOLIC PANEL 2021-02-13 04:08:00 [facility] (NA, K, CL, CO2, Medical Branch GLUCOSE, BUN, CREATININE, CA) CBC WITH DIFF 2021-02-13 04:08:00 Eva Ramirez [facility] NOTICE OF PRIVACY 2021-02-13 03:11:24 Doctor Unassigned, No [facility] PR[facility] Name [facility] CONSENT/REFUSAL FOR 2021-02-13 03:10:40 Doctor Unassigned, No [facility] DIAGNOSIS AND Name [facility] TREATMENT Procedure on Hand [facility] Repair of Testis [facility] Repair of Ankle [facility] Knee Surgery [facility] Encounters Start End Encounter Admission Attending Care Care Encounter Source Date/Time Date/Time Type Type Clinicians Facility Department ID 2022-11-21 2022-11-21 [id number] Univers 13:42:00 17:40:00 Kane A [place] [id number] ity [facility] [id number] [facility] [id number] [place] [address] Branch 2022-11-21 2022-11-21 Emergency X NATHANAEL [facility] [[email or web address] ERT [id number] Univers 13:42:00 17:40:00 [facility] 2022-01-07 Outpatient R FRANKLIN [facility] [id number] Univers 14:00:00 14:00:00 SENDIL [facility] 2022-01-05 2022-01-05 Outpatient Ekaterina NEWELL [facility] [id number] Univers 10:00:00 10:00:00 ANA rojas o f [facility] 2021-07-30 2021-07-30 Outpatient Ekaterina ARTEAGA [facility] [id number] Univers 15:00:00 15:00:00 LESTER [facility] 2021-05-12 2021-05-12 Outpatient ROSHNION_R [facility] [id number] [place] 08:40:00 08:40:00 0124 Commun i ty Hospita l Clinics 2021-05-09 2021-05-09 Outpatient ERSTACION_R [facility] [id number] [place] 09:40:00 09:40:00 0121 Commun i ty Hospita l Clinics 2021-05-08 2021-05-08 Outpatient ERSTACION_R [facility] [id number] [place] 06:02:00 06:02:00 0120 Commun i ty Hospita l Clinics 2021-05-08 2021-05-08 Werner [facility] [place] [facility] [place] 00:00:00 00:00:00 [facility] DO: [address] [facility] [address] Clinic s [place], [place] CL[place], [id number] WAQAR , Ph. 2021-05-08 2021-05-08 Outpatient Waqar [facility] [id number] 00:00:00 00:00:00 Werner [id number] Miguel [id number] 2021-02-12 2021-02-13 Emergency [facility] [id number] Univers 22:35:00 01:24:00 Eva Painting [id number] ity [facility] [id number] [facility] [id number] [facility] 084 Branch 2021-02-12 2021-02-13 Emergency X [facility] ERT [id number] Univers 22:35:00 01:24:00 EVA ity of [facility] 2021-02-12 2021-02-12 Orders Doctor SPENCE [id number] Univers 00:00:00 00:00:00 Only Unassigned, DAVID [id number] ity of [place] [facility] [id number] Alber[place] [id number] [facility] 009 Branch Results Test Description Test Time Test Comments Results Result Comments Source BASIC METABOLIC PANEL (NA, K, CL, CO2, GLUCOSE, BUN, 2021-01 04:53:21 CREATININE, CA) Test Item Value Reference Range Interpretation Comme nts NA (test code = 1168516901) 137 mmol/L 135-145 K (test code = 0175975942) 3.8 mmol/L 3.5-5.0 CL (test code = 6692475477) 107 mmol/L 98-108 CO2 TOTAL (test code = 6947856856) 27 mmol/L 23-31 AGAP (test code = 1927013601) 2-16 BUN (test code = 3369670495) 15 mg/dL 7-23 GLUCOSE (test code = 2343654972) 133 mg/dL 70-110 H CREATININE (test code = 1.07 mg/dL 0.60-1.25 3415211601) CALCIUM (test code = 1112348834) 8.8 mg/dL 8.6-10.6 eGFR (test code = 2120186131) mL/min/1.73m2 HUGH (test code = HUGH) Association of Glomerular Filtration Rate (GFR) and Staging of Kidney Disease* + +-------- + ------+| GFR (mL/min/1.73 m2) ?| With Kidney Damage ?| ?Without Kidney Damage+ +-- + +| ?>90 ?| ?Stage one ?| ? Normal ?+ +------- + -------+| ?60-89 ?| ?Stage two ?| ? Decreased GFR ? + +-------- + ------+| ?30-59 ?| ?Stage three ?| ? Stage three ? + +-------- + ------+| ?15-29 ?| ?Stage four ? | ? Stage four ?+ +------- + -------+| ?<15 (or dialysis) ? ?| ?Stage five ? | ? Stage five ?+ +------- + -------+ *Each stage assumes the associated GFR level has been in effect for at least three months. ?Stages 1 to 5, with or without kidney disease, indicate chronic kidney disease. Notes: Determination of stages one and two (with eGFR >59mL/min/1.73 m2) requires estimation of kidney damage for at least three months as defined by structural or functional abnormalities of the kidney, manifested by either:Pathological abnormalities or Markers of kidney damage (including abnormalities in the composition of the blood or urine or abnormalities in imaging tests). Lab Interpretation (test code = Abnormal 38378-7) [facility] WITH [id number] 04:33:05 Test Item Value Reference Range Interpretation Comments WBC (test code = See_Comment [Automated message] 6690-2) The system [employer] generated this result transmitted ref erence range: 4.20 - 1 0.70 10*3/?L. The re ference range was not u sed to interpret this result as normal/abnor mal. RBC (test code = See_Comment [Automated message] 749-8) The system [employer] generated this result transmitted ref erence range: 4.26 - 5 .52 10*6/?L. The re ference range was not u sed to interpret this result as normal/abnor mal. HGB (test code = 13.8 g/dL 12.2-16.4 718-7) HCT (test code = 40.9 % 38.4-49.3 4544-3) MCV (test code = 84.3 fL 81.7-95.6 787-2) MCH (test code = 28.5 pg 26.1-32.7 785-6) MCHC (test code = 33.7 g/dL 31.2-35.0 786-4) RDW-SD (test code 39.7 fL 38.5-51.6 = 71469-5) RDW-CV (test code 12.9 % 12.1-15.4 = 788-0) PLT (test code = See_Comment [Automated message] 777-3) The system [employer] generated this result transmitted ref erence range: 150 - 32 8 10*3/?L. The re ference range was not u sed to interpret this result as normal/abnor mal. MPV (test code = 10.0 fL 9.8-13.0 96850-4) NRBC/100 WBC (test See_Comment [Automat ed message] code = 4354130208) The syste m which generated this result transmitted ref erence range: 0.0 - 10 .0 /100 WBCs. The refer ence range was not u sed to interpret this result as normal/abnor mal. NRBC x10^3 (test <0.01 See_Comment [Automated message] code = 5327362658) The syste m which generated this result transmitted ref erence range: 10*3/?L. The reference range was not used to interpr et this result as normal/abnormal . GRAN MAT (NEUT) % 49.2 % (test code = 770-8) IMM GRAN % (test 0.50 % code = 5246063311) LYMPH % (test code 37.3 % = 736-9) MONO % (test code 9.2 % = 5905-5) EOS % (test code = 2.8 % 713-8) BASO % (test code 1.0 % = 706-2) GRAN MAT 3.75 10*3/uL 1.99-6.95 x10^3(ANC) (test code = 9040612384) IMM GRAN x10^3 0.04 10*3/uL 0.00-0.06 (test code = 3787072160) LYMPH x10^3 (test 2.84 10*3/uL 1.09-3.23 code = 731-0) MONO x10^3 (test 0.70 10*3/uL 0.36-1.02 code = 742-7) EOS x10^3 (test 0.21 10*3/uL 0.06-0.53 code = 711-2) BASO x10^3 (test 0.08 10*3/uL 0.01-0.09 code = 704-7) [facility] Notes Date/Time Note Provider Source 2022-11-21 Formatting of this note might be differe nt from the original. Shell Sears RN THREE [facility] [[email or web address]] - Health 18:11:41-00:00 Pt given printed and verbal discharge instructions regarding fall, rib fracture, knee pain, encouraged hydration. 2 Prescriptions sent to pharmacy. Discussed ibuprofen and to take with food to guy id GI distress. Discussed Tylenol # 3/Lyman side affects and to avoid driving/operating machinery/or engaging in activities requiring alertness while taking. Pt verbalized understanding of instructions, pt awake alert oriented, resp reg unlabored, skin w/d, color appropriate for race, moves all ext well,pt encouraged to follow up with pcp. Advised to seek medical attention for new/prolon ged/worsening of symptoms, Symptoms improved. No adverse reaction to meds given in ER noted up on discharge. PIV d'cd, dressing to site, catheter in tact. Awake, alert oriented, resp reg unlabored, skin w/d, pt leaving via wheelchair, in no apparent distress. Electronically signed by Shell Sears RN a t 11/21/2022 6:13 PM CDT 2022-11-21 Formatting of this note might be differe nt from the original. Sowmya Arndt RN [facility] 13:35:53-00:00 Patient states: "About 1.5 h ours ago I was playing basketball, went up for a rebound. I fell and landed on my hand on my left ribs with some people on top of me. I'm having bad rib pain and shortness of breath. Also my right knee hurts pretty bad" Electronically signed by Sowmya Arndt RN at 1:36 PM CDT 2022-11-21 Formatting of this note is different from the or iginal. 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 PT c/o L sided rib pain, low back pain and felt his Rt knee "pop." Pt did not take anything for pain. Past Medical History/Immunizations: Past Medical History: Diagnosis Date COPD (chronic obstructive pulmonary disease) Tetanus received in last 5 years: Unknown Childhood immunizations: Up-to-date Allergies: Allergies Allergen Reactions Asa [Aspirin] Rash Ciprofloxacin Other - See comments Ibuprofen Rash Penicillin Unknown - See comments Toradol [Ketorolac] Unknown - See comments Past Social History: Tobacco Use Every Day; Cigarettes: Started 1986; 0.50 packs /day for 31.00 years Smokeless Tobacco: Current user of smokeless to [employer]. Past Surgical History: History reviewed. No pertinent surgical history. Review of Systems: Review of Systems Constitutional: Negative for fever. HENT: Negative for voice change. Respiratory: L sided rib pain Musculoskeletal: Positive for arthralgias and ba ck pain. Rt knee pain Skin: Negative for wound. Psychiatric/Behavioral: Negative for confusion. Physical Exam: ED Triage Vitals [11/21/22 1337] Weight 154.2 kg (340 lb) Actual or estimated Estimated by patient/family report Height 1.905 m (6' 3") BP (!) 123/94 Pulse 97 Resp 22 Temp 36.8 ?C (98.3 ?F) Temp source Oral SpO2 96 % Measured on Room air Physical Exam Vitals and nursing note reviewed. Constitutional: Appearance: Normal appearance. Eyes: Extraocular Movements: Extraocular movements in tact. Cardiovascular: Rate and Rhythm: Normal rate. Pulmonary: Effort: Pulmonary effort is normal. Comments: Ttp over L lateral side of chest Chest: Chest wall: Tenderness present. Musculoskeletal: General: Tenderness present. Comments: Ttp over lumbar r egion, ttp over Rt knee, some laxity on anterior drawer/valgus/varus stress Neurological: Mental Status: He is alert. Radiology: CT LUMBAR SPINE WO CONTRAST Final Result ORDERING PHYSICIAN: KANE HUFFMAN CLINICAL HISTORY: eval for fx TECHNIQUE: CT of the lumbar spine without intrav enous contrast. Exam was performed with radiation as low as reasonably ac hievable (ALARA) principles. COMPARISON: None. FINDINGS: Normal lumbar spine alignment. Vertebral bodies are normal height. No evidence of acute lumbar spine fracture or spond ylolisthesis. Unremarkable paravertebral soft tissues, partially imaged pel roger bones and sacroiliac joints. Multilevel degenerative disc disease of lumbar spine. Schmorl's node at superior L3 endplate. Moderate to severe disc height loss anteriorly at L1-L2. Findings at each level: T12-L1: No spinal canal or neural foraminal sten osis. L1-2: Diffuse disc bulge. No significant spinal canal stenosis, 12 mm AP. No stenosis of neural foramina. L2-3: Trace diffuse disc bulge. No spinal canal or neural foraminal stenosis. L3-4: No spinal canal or neural foraminal stenos is. L4-5: Decreased diffuse disc bulge. No spinal ca nal stenosis. Mild bilateral facet joint disease. Mild stenosis of both neural foramina. L5-S1: Diffuse disc bulge. No spinal canal steno sis. Mild stenosis of both neural foramina. IMPRESSION 1. No evidence of acute lumbar spine injury. 2. Mild stenosis of bilateral L4-5 and bilateral L5-S1 neural foramina. No significant spinal canal stenosis. RL: [id number] AFC: [id number] End of report. Electronically signed by Bayron Farley MD at 2022 5:[address] THORAX WO CONTRAST Final Result CT SCAN OF THE CHEST WITHOUT CONTRAST 11/21/2022 2 :11 PM TECHNIQUE: Multidetector helical CT scan of the chest was performed without intravenous administration of contrast. Coronal and sagittal reformats as well axial MIPs imaging were acquired. CLINICAL INFORMATION: eval for rib fractures COMPARISON: Abdominal CT 07/24/2018 FINDINGS: Devices: None. PULMONARY PARENCHYMA/PLEURA: Relatively upper lung zone substantial parasepta l and confluent centrilobular emphysema. No suspicious nodules. No pleural effusion. No pneumothorax. LYMPH NODES: No thoracic adenopathy. MEDIASTINUM/ LOWER NECK: No mediastinal mass is seen.. No actionable thyroid nodule is present. CARDIOVASCULAR: The cardiac size is normal. No p ericardial effusion. The great vessels caliber is normal. UPPER ABDOMEN: Splenomegaly at 14.5 cm. Colonic diverticulosis. A couple of small lee hepatis and left gastric lymph nodes measuring up to 1.3 cm, nonspecific. BONES/ CHEST WALL: An incomplete acute fracture of the anterior left fourth rib is evident. Fracture of anterior left second rib. Mild deformity of the right anterior fifth rib suggestive of healed fr acture. IMPRESSION Nondisplaced incomplete fracture of anterior lef t fourth rib. No other acute intrathoracic injury. Substantial paraseptal and confluent centrilobul ar emphysema. Stable splenomegaly. Colonic diverticulosis. XR KNEE 3 VW RIGHT Preliminary Result EXAM: XR KNEE 3 VW RIGHT HISTORY: 47 years-old Male; eval for fx s/p fall . COMPARISON: Right knee x-ray 07/18/2018 FINDINGS: Radiographs of the right knee were obtained. No acute fracture or traumatic dislocation is visualized. The alignment is main tained. Mild tricompartmental joint space, osteophytosis and subchondral sclerosis. Small effusion is present. IMPRESSION No acute osseous abnormality. Preliminary Report Dictated by Resident: Sherly Larios Lab Results: Lab Results - No data to display EKG: If EKG completed, see Procedure Note. Orders and Treatments: Orders Placed This Encounter Procedures CT LUMBAR SPINE WO CONTRAST CT THORAX WO CONTRAST XR KNEE 3 VW RIGHT Orders Placed This Encounter Medications morpHINE (4 mg/mL) injection 4 mg acetaminophen ADULT (OFIRMEV) injection 1,000 m g HYDROmorphone (DILAUDID) injection 1 mg methocarbamoL (ROBAXIN) injection 1,000 mg cyclobenzaprine 10 mg tablet acetaminophen-codeine 300-30 mg tablet First Provider Eval: ED Events Date/Time Event User Comments 11/21/22 1355 Medical Screening Begins KANE HUFFMAN MD -- 11/21/22 1355 First Provider Evaluation KANE HUFFMAN MD -- No notes of EC Admission Criteria type on file. ED COURSE Diagnosis/Impression as of 11/21/22 1707 Fall, initial encounter Will obtain ct chest/L spine, x-ray of R knee. P t to receive analgesia. 17:05 PT informed of results . PT improved s/p treatment. PT to be shown how to use incentive spirometer. PT and comfortable with plan. Procedures: Procedures MDM: Medical Decision Making 47 yo M presents after fall Problems Addressed: Fall, initial encounter: acute illness or injury Details: ct chest- nondisplaced anterior 4th ri b fx Amount and/or Complexity of Data Reviewed Independent Historian: spouse Radiology: ordered. Risk Prescription drug management. Risk Details: Pt understands need for f/u and to use incentive spirometer Flowsheet Documentation: Scoring Tools: No data recorded Disposition/Condition: ED Disposition ED Disposition Disch - Home Condition Stable Comment -- Discharge Medications: Patient's Medications START taking these medications ACETAMINOPHEN-CODEINE 300-3 0 MG TABLET Take 1 tablet by mouth every 6 (six) hours as needed for Pain (scale 4-6) for up to 15 doses. Indications: acute pain CYCLOBENZAPRINE 10 MG TABLE T Take 1 tablet by mouth in the morning and 1 tablet at noon and 1 tablet in the evening. Do all this for 5 days. CONTINUE taking these medications which have NOT CHANGED ALBUTEROL 90 MCG/ACTUATION INHALER Inhale 2 Puffs every 6 (six) hours as needed for Wheezing or Shortness of Breath. BUDESONIDE-FORMOTEROL 160-4 .5 MCG/ACTUATION INHALER Symbicort 160 mcg-4.5 mcg/actuation HFA aerosol inhaler CELECOXIB (CELEBREX ORAL) Take by mouth. CLINDAMYCIN 300 MG CAPSULE Take 1 capsule by mo [facility] 4 (four) times daily. CYCLOBENZAPRINE 10 MG TABLET cyclobenzaprine 10 mg tablet Take 1 tablet twice a day by oral route as dire cted for 28 days. GABAPENTIN 300 MG CAPSULE Take 1 capsule by [facility] 3 (three) times daily. HYDROCODONE-ACETAMINOPHEN ( NORCO) 10-325 MG TABLET Take 2 Tabs by mouth daily. KETOROLAC 10 MG TABLET Take 10 mg by mouth. MELOXICAM 7.5 MG TABLET meloxicam 7.5 mg tablet PROMETHAZINE 25 MG TABLET T estrellita 1 tablet by mouth every 6 (six) hours as needed for Nausea and Vomiting (N/V). TRAMADOL (ULTRAM) 50 MG TAB LET Take 1 tablet by mouth every 6 (six) hours as needed for Pain (scale 4-6). START taking Modified Medications as Prescribed No medications on file STOP taking these medications No medications on file Follow-up: Electronically signed by: Kane Huffman MD 11/21/22 7730 Electronically signed by Kane Huffman MD a t 11/21/2022 5:08 PM CDT
[2022-12-27] MEDS ORDERED: ONDANSETRON 4 MG/2 ML VIAL ONE (00:45)
[2022-12-27] MEDS ORDERED: MORPHINE 4 MG/ML SYR ONE ×2 (00:45→01:08)
[2022-12-27 00:54] LABS: Absolute Lymphocytes (CBC) 2.8 K/uL (0.7-4.9); Hematocrit 42.2 % (39.6-49.0); Lymphocytes % 28.5 % (15.3-44.8); MPV 8.9 fL (7.6-11.3); Platelets 164 thou/uL (152-406); RBC Red Blood Cell Count 4.85 M/uL (4.33-5.43)
[2022-12-27 01:14] LABS: Albumin 3.4 g/dL (3.4-5.0); Bilirubin Total 0.4 mg/dL (0.2-1.0); Protein, Total 7.1 g/dL (6.4-8.2)
[2022-12-27 01:15] LABS: Potassium 4.1 mEq/L (3.5-5.1)
--- NOTE | 2022-12-27 03:00 | P.HP ---
Certification for Inpatient Patient admitted to: Inpatient With expected LOS: <2 Midnights Patient will require the following post-hospital care: None Practitioner: I am a practitioner with admitting privileges, knowledge of patient current condition, hospital course, and medical plan of care. Services: Services provided to patient in accordance with Admission requirements found in Title 42 Section 412.3 of the Code of Federal Regulations Patient History Date of Service: 12/27/22 History of Present Illness: 47-year-old male with significant past medical history of Crohn's disease, diverticulitis and chronic back pain, prior colon resection who presented to the ED complaining abdominal pain left lower quadrant with bright red rectal bleeding. he reports abdominlal pain is LLQ and epigastric, he reports pain 8/10. reports associated nausea, no vomiting. He reports having a colon resection 2013, he reports not seeing GI or a physician recently. He reports symptoms are made worse by moving., Made better by nothing.. He denies fever, vomiting, chest pain, shortness of breath dizziness,. Plan to admit for - Diverticulitis of large intestine without perforation or abscess with bleeding, Crohn's disease of large intestine with rectal bleeding. GI Dr Kingston Consulted, started on IV Flagyl, cefepime, treated with as needed analgesics, antiemetics. Laboratory evaluation CBC unremarkable, CMP acute kidney injury BUN 20, creatinine 1.05, hypocalcemia 8.4, CT of the abdomen pelvis limited due to lack of contrast. No evidence of hydronephorosis or nephrolithasis Allergies aspirin Allergy (Verified 11/14/17 16:10) Itching/Hives/Rash ibuprofen Allergy (Verified 11/14/17 16:10) Itching/Hives/Rash ketorolac tromethamine [From Toradol] Allergy (Verified 11/14/17 16:10) Itching/Hives/Rash Penicillins Allergy (Verified 11/14/17 16:10) Itching/Hives/Rash Cipro PO Allergy (Uncoded 11/14/17 15:48) Unknown Home Medications: Cyclobenzaprine [Flexeril*] 1 tab PO QIDP PRN 11/14/17 Hydrocodone 5/APAP 325 [[place] 5/325*] 10 mg PO Q4HP PRN 11/14/17 Nicotine [Nicoderm*] 21 mg TD DAILY patch.td24 11/16/17 Smz./Tmp. [Bactrim Ds 800 MG/160 MG] 1 tab PO BID #28 tab 11/16/17 - Past Medical/Surgical History Diabetic: No -: crohns, diverticulitis -: Chronic Back pain -: RT foot ,ankle, knee -: Colon resection 2013 -: Testicular sx Psychosocial/ Personal History: , occasional alcohol use 1-2 times monthly socially. - Family History Mother -: Hypertension, Other (see notes) Notes: COPD Father -: Hypertension, Other (see notes) Notes: AFIB - Social History Smoking Status: Current every day smoker Alcohol use: No CD- Drugs: No Caffeine use: No Place of Residence: Home Review of Systems 10-point ROS is otherwise unremarkable Physical Examination - Physical Exam General: Alert, In no apparent distress, Oriented x3, Obese HEENT: Atraumatic, Normocephalic, PERRLA Neck: Supple, 2+ carotid pulse no bruit, JVD not distended Respiratory: Clear to auscultation bilaterally, Normal air movement Cardiovascular: No edema, Normal pulses, Regular rate/rhythm Capillary refill: <2 Seconds Gastrointestinal: Normal bowel sounds, Other (LLQ, epigastric tenderness, ) Musculoskeletal: No clubbing, No swelling Neurological: Normal gait, Normal speech, Normal strength at 5/5 x4 extr - Studies Laboratory Data (last 24 hrs) 12/27/22 12/27/22 00:42 00:42 WBC 9.70 Hgb 14.7 Hct 42.2 Plt Count 164 Sodium 139 Potassium 4.1 BUN 20 H Creatinine 1.05 Glucose 106 Total Bilirubin 0.4 AST 31 ALT 60 Alkaline Phosphatase 71 Lipase 44 Assessment and Plan - Plan Assessment and plan Diverticulitis of large intestine without perforation or abscess with bleeding Crohn's disease of large intestine with rectal bleeding Rectal bleeding Abdominal pain Acute kidney injury Hypocalcemia obesity Tobacco use DVT prophylaxis Assessment and plan Diverticulitis of large intestine without perforation or abscess with bleeding Crohn's disease of large intestine with rectal bleeding Rectal bleeding Abdominal pain GI consult, IV Flagyl, IV cefepime, as needed antiemetics, as needed analgesics Stool culture ordered CT of the abdomen pelvis limited due to lack of contrast. No evidence of hydronephorosis or nephrolithasis Acute kidney injury IV fluids Trend kidney function CMP acute kidney injury BUN 20, creatinine 1.05, obesity Recommend cardiac diet Tobacco use educated on tobacco cessation Hypocalcemia hypocalcemia 8.4, Trend electrolytes replace as needed DVT prophylaxis Full code Diet n.p.o. Discharge Plan: Home Plan to discharge in: 48 Hours - Advance Directives Does patient have a Living Will: No Does patient have a Durable POA for Healthcare: No - Code Status/Comfort Care Code Status: Full Code Physician Review: Patient Assessed, Agree with Above Assessment and Plan Critical Care: No Time Spent Managing Pts Care (In Minutes): 50
--- NOTE | 2022-12-27 03:03 | ER ---
Nurse's Notes [facility] Name: Dennis Keating Age: 47 yrs Sex: Male : 1975 Arrival Date: 12/27/2022 Time: 00:01 Bed 16 Private MD: Diagnosis: Diverticulitis of large intestine without perforation or abscess with bleeding;Crohn's disease of large intestine with rectal bleeding Presentation: 12/27 00:18 Chief complaint: Patient states: LLQ pain that started tonight. Coronavirus screen: At as6 this time, the client does not indicate any symptoms associated with coronavirus-19. Ebola Screen: No symptoms or risks identified at this time. Initial Sepsis Screen: Does the patient meet any 2 criteria? No. Patient's initial sepsis screen is negative. Does the patient have a suspected source of infection? No. Patient's initial sepsis screen is negative. Risk Assessment: Do you want to hurt yourself or someone else? Patient reports no desire to harm self or others. Onset of symptoms was December 26, 2022. 00:18 Method Of Arrival: Wheelchair as6 00:18 Acuity: AMNA 3 as6 Triage Assessment: 00:20 General: Appears uncomfortable, obese, Behavior is cooperative, appropriate for age, bp anxious. Pain: Complains of pain in left lower quadrant. GI: Reports lower abdominal pain. Historical: - Allergies: 00:21 Aspirin; as 00:21 Cipro PO; as6 00:21 Ibuprofen; as6 00:21 PENICILLINS; as 00:21 Toradol; as6 - PMHx: 00:21 Back pain; CHRONS; Diverticulitis; Myocardial infarction; as6 - PSHx: 00:21 bowel resection; knee; ankle; foot; hand; testicle; as6 - Immunization history:: Client reports receiving the 2nd dose of the Covid vaccine, moderna. - Social history:: Smoking status: Patient reports the use of cigarette tobacco products, smokes one-half pack cigarettes per day, Reported history of juuling and/or vaping. Screenin:10 [facility] ED Fall Risk Assessment (Adult) History of falling in the last 3 months, bp including since admission No falls in past 3 months (0 pts). Abuse screen: Denies threats or abuse. Denies injuries from another. Nutritional screening: No deficits noted. Tuberculosis screening: No symptoms or risk factors identified. Assessment: 00:20 General: SEE TRIAGE NOTE. bp 01:10 Reassessment: No changes from previously documented assessment. Patient is alert, bp oriented x 3, equal unlabored respirations, skin warm/dry/pink. 02:24 Reassessment: PT RETURNED FROM CT. bp Vital Signs: 00:18 BP 133 / 89; Pulse 86; Resp 18 S; Temp 98.2(O); Pulse Ox 96% on R/A; Weight 154.67 kg as6 (R); Height 6 ft. 3 in. (R); Pain 9/10; 01:09 BP 115 / 85; Pulse 80; Resp 16; Pulse Ox 97% ; bp 02:24 BP 117 / 79; Pulse 80; Resp 16; Pulse Ox 93% ; bp 00:18 Body Mass Index 42.62 (154.67 kg, 190.5 cm) as6 00:18 Pain Scale: Adult as6 ED Course: 00:02 Patient arrived in ED. jj6 00:06 Debbie Kerr PA-C is PHCP. sb4 00:06 Robert Centeno MD is Attending Physician. sb4 00:13 Junior Rios, ARAMIS is Primary Nurse. bp 00:21 Triage completed. as6 00:24 Arm band placed on. as6 00:45 Inserted saline lock: 20 gauge in left wrist, using aseptic technique. Blood collected. bp 01:10 Patient has correct armband on for positive identification. Bed in low position. Call bp light in reach. Side rails up X2. Adult w/ patient. 02:14 Abdomen In Process Unspecified. EDMS 03:02 Yosi Chun is Hospitalizing Provider. sb4 04:04 No provider procedures requiring assistance completed. Patient admitted, IV remains in bp place. Administered Medications: 00:46 Drug: Ondansetron IVP 4 mg Route: IVP; Site: left wrist; bp 01:09 Follow up: Response: No adverse reaction bp 00:46 Drug: morphine IVP or IV 4 mg Route: IVP; Infused Over: 4 mins; Site: left wrist; bp 01:09 Follow up: Response: No adverse reaction bp 01:08 Drug: morphine IVP or IV 4 mg Route: IVP; Infused Over: 4 mins; Site: left wrist; bp 01:09 Follow up: Response: No adverse reaction bp 03:02 Drug: HYDROmorphone IVP 1 mg Route: IVP; Site: left wrist; bp 04:05 Follow up: Response: No adverse reaction bp 03:36 Drug: Rocephin IV 1 grams Route: IV; Rate: calculated rate; Site: left wrist; bp 04:05 Follow up: IV Status: Completed infusion; IV Intake: 100ml bp 03:36 Drug: metroNIDAZOLE IVPB 500 mg Volume: 100 ml; Route: IVPB; Rate: 200 ml/hr; Infused bp Over: 30 mins; Site: left wrist; 04:05 Follow up: IV Status: Completed infusion; IV Intake: 100ml bp Medication: 04:04 VIS not applicable for this client. bp Intake: 04:05 IV: 100ml; Total: 100ml. bp 04:05 IV: 100ml; Total: 200ml. bp Outcome: 03:03 Decision to Hospitalize by Provider. sb4 04:04 Admitted to Med/surg accompanied by tech, via wheelchair, room 209, Report called to bp SPRING SELF 04:04 Condition: stable 04:04 Instructed on the need for admit. 04:21 Patient left the ED. jb4 Signatures: Dispatcher [employer] EDMS Dennis Hammonds RN RN jb4 Junior Rios, RN RN Yudith Siegel Ashby, RN RN as6 Debbie Kerr, PAChano PA-C sb4
--- NOTE | 2022-12-27 03:03 | EDPHYS ---
Physician Documentation [facility] Name: Dennis Keating Age: 47 yrs Sex: Male : 1975 Arrival Date: 12/27/2022 Time: 00:01 Bed 16 Private MD: ED Physician Robert Centeno HPI: 12/27 00:35 This 47 yrs old Male presents to ER via Wheelchair with complaints of Abdominal Pain, sb4 Bloody Stools, H/O Crohn's. 00:35 The patient presents with abdominal pain in the left lower quadrant. Onset: The sb4 symptoms/episode began/occurred just prior to arrival. The symptoms do not radiate. Associated signs and symptoms: Pertinent positives: blood in stools, diarrhea, nausea, Pertinent negatives: fever, hematuria, vomiting blood. Modifying factors: The symptoms are alleviated by nothing, the symptoms are aggravated by movement, pressure. Severity of pain: in the emergency department the pain is a 9 / 10. The patient has experienced similar episodes in the past, several times. The patient has not recently seen a physician. Historical: - Allergies: 00:21 Aspirin; as6 00:21 Cipro PO; as6 00:21 Ibuprofen; as6 00:21 PENICILLINS; as6 00:21 Toradol; as6 - PMHx: 00:21 Back pain; CHRONS; Diverticulitis; Myocardial infarction; as6 - PSHx: 00:21 bowel resection; knee; ankle; foot; hand; testicle; as6 - Immunization history:: Client reports receiving the 2nd dose of the Covid vaccine, moderna. - Social history:: Smoking status: Patient reports the use of cigarette tobacco products, smokes one-half pack cigarettes per day, Reported history of juuling and/or vaping. ROS: 00:35 Constitutional: Negative for fever, chills, and weight loss. sb4 00:35 Abdomen/GI: Positive for abdominal pain, nausea, diarrhea, black/tarry stool. 00:35 All other systems are negative. Exam: 00:35 Constitutional: This is a well developed, well nourished patient who is awake, alert, sb4 and in no acute distress. Head/Face: Normocephalic, atraumatic. Eyes: Extra-ocular motions intact. Periorbital areas with no swelling, redness, or edema. ENT: Mucous membranes moist. Cardiovascular: Regular rate and rhythm with a normal S1 and S2. Respiratory: Lungs have equal breath sounds bilaterally, clear to auscultation and percussion. No rales, rhonchi or wheezes noted. No increased work of breathing, no retractions or nasal flaring. Skin: Warm, dry with normal turgor. Normal color with no rashes, no lesions, and no evidence of cellulitis. MS/ Extremity: Pulses equal, no cyanosis. Neurovascular intact. Full, normal range of motion. Neuro: Awake and alert, GCS 15, oriented to person, place, time, and situation. Cranial nerves II-XII grossly intact. Motor strength 5/5 in all extremities. Sensory grossly intact. Cerebellar exam normal. Normal gait. 00:35 Abdomen/GI: Inspection: abdomen appears normal, obese Bowel sounds: normal, Palpation: moderate abdominal tenderness, in the left lower quadrant, involuntary guarding, is elicited in the left lower quadrant, Hernia: not appreciated. Vital Signs: 00:18 BP 133 / 89; Pulse 86; Resp 18 S; Temp 98.2(O); Pulse Ox 96% on R/A; Weight 154.67 kg as6 (R); Height 6 ft. 3 in. (R); Pain 9/10; 01:09 BP 115 / 85; Pulse 80; Resp 16; Pulse Ox 97% ; bp 02:24 BP 117 / 79; Pulse 80; Resp 16; Pulse Ox 93% ; bp 00:18 Body Mass Index 42.62 (154.67 kg, 190.5 cm) as6 00:18 Pain Scale: Adult as6 MDM: 00:06 Patient medically screened. sb4 00:35 Differential diagnosis: bowel obstruction, diverticulitis, GI Bleed, non-specific abd sb4 pain, Peritonitis, crohns flare. 03:02 Data reviewed: vital signs, nurses notes, lab test result(s), radiologic studies, and sb4 as a result, I will admit patient. Consideration of Admission/Observation Patient was admitted/placed on observation. Management of patient was discussed with the following: Hospitalist: MARIELA Dumont. Counseling: I had a detailed discussion with the patient and/or guardian regarding the historical points, exam findings, and any diagnostic results supporting the discharge/admit diagnosis, lab results, radiology results, the need for further work-up and treatment in the hospital. 12/27 00:29 Order name: CBC with Diff; Complete Time: 00:56 sb4 12/27 00:29 Order name: CMP; Complete Time: 01:20 sb4 12/27 00:29 Order name: Lipase; Complete Time: 01:20 sb4 12/27 00:29 Order name: Type And Screen; Complete Time: 02:12 sb4 12/27 02:05 Order name: Abdomen EDMS 12/27 00:29 Order name: IV Saline Lock; Complete Time: 00:46 sb4 12/27 00:29 Order name: Labs collected and sent; Complete Time: 00:46 sb4 Administered Medications: 00:46 Drug: Ondansetron IVP 4 mg Route: IVP; Site: left wrist; bp 01:09 Follow up: Response: No adverse reaction bp 00:46 Drug: morphine IVP or IV 4 mg Route: IVP; Infused Over: 4 mins; Site: left wrist; bp 01:09 Follow up: Response: No adverse reaction bp 01:08 Drug: morphine IVP or IV 4 mg Route: IVP; Infused Over: 4 mins; Site: left wrist; bp 01:09 Follow up: Response: No adverse reaction bp 03:02 Drug: HYDROmorphone IVP 1 mg Route: IVP; Site: left wrist; bp 04:05 Follow up: Response: No adverse reaction bp 03:36 Drug: Rocephin IV 1 grams Route: IV; Rate: calculated rate; Site: left wrist; bp 04:05 Follow up: IV Status: Completed infusion; IV Intake: 100ml bp 03:36 Drug: metroNIDAZOLE IVPB 500 mg Volume: 100 ml; Route: IVPB; Rate: 200 ml/hr; Infused bp Over: 30 mins; Site: left wrist; 04:05 Follow up: IV Status: Completed infusion; IV Intake: 100ml bp Disposition: 08:03 Co-signature as Attending Physician, Robert Centeno MD I reviewed the patient's care rt provided by the Advanced Practice Provider and agree with the diagnosis and treatment plan. Disposition Summary: 12/27/22 03:03 Hospitalization Ordered Hospitalization Status: Inpatient Admission sb4 Provider: Yosi Chun Location: Telemetry/MedSur (Inpatient) sb4 Condition: Fair sb4 Problem: an acute exacerbation sb4 Symptoms: are unchanged sb4 Bed/Room Type: Standard sb4 Room Assignment: 209(12/27/22 03:15) as6 Diagnosis - Diverticulitis of large intestine without perforation or abscess with bleeding sb4 - Crohn's disease of large intestine with rectal bleeding sb4 Forms: - Medication Reconciliation Form sb4 - SBAR form sb4 - Leadership Thank You Letter sb4 Signatures: Dispatcher [employer] EDMS Junior Rios, RN RN bp Eduar Zimmerman RN RN as6 Debbie Kerr PA-C PAChano sb4 Robert Centeno MD MD rt Corrections: (The following items were deleted from the chart) 02:05 00:29 Abdomen Pelvis W Con+CT.RAD.BRZ ordered. EDAL EDMS 03:15 03:03 sb4 as6
[2022-12-27] MEDS ORDERED: HYDROMORPHONE HCL 1 MG/ML INJ ONE (03:06)
[2022-12-27] MEDS ORDERED: CEFTRIAXONE 1000 MG/VIAL ONE (03:40)
[2022-12-27] MEDS ORDERED: METRONIDAZOLE 500mg IVPB 500 MG/100 ML BAG IV ONE (03:41)
[2022-12-27] MEDS ORDERED: HYDROMORPHONE HCL 2 MG/ML inj IV PRN (03:50)
[2022-12-27] MEDS ORDERED: METRONIDAZOLE 500mg IVPB 500 MG/100 ML BAG IV SCH (04:28)
[2022-12-27] MEDS ORDERED: NA CHLORIDE 0.9% 1,000 ML IV SCH (04:28)
[2022-12-27] MEDS ORDERED: ONDANSETRON 4 MG/2 ML VIAL IV PRN (04:28)
[2022-12-27 04:31] VITALS: O2SAT 93; BMI 42.5
[2022-12-27 05:07] LABS: Albumin 3.3 g/dL (3.4-5.0); Bilirubin Total 0.2 mg/dL (0.2-1.0); Magnesium 2.1 mg/dL (1.6-2.4); Potassium 3.7 mEq/L (3.5-5.1); Protein, Total 6.9 g/dL (6.4-8.2)
[2022-12-27 08:21] VITALS: BP 116/72; TEMP 98.3
[2022-12-27] MEDS ORDERED: CEFEPIME 1 GM in NA CHLORIDE 0.9% 100 ML IV SCH (09:00)
[2022-12-27] MEDS ORDERED: KCL 20 MEQ/100 mL IVPB 20 MEQ/100 ML BAG IV SCH (09:00)
--- NOTE | 2022-12-28 11:31 | RAD REPORT ---
EXAM DESCRIPTION: CT - Abdomen Pelvis Wo Contrast - 12/27/2022 6:48 am CLINICAL HISTORY: 47 years, Male, ABD PAIN COMPARISON: None. PROC TECHNIQUE: Multiple transaxial tomograms of the abdomen and pelvis were performed from the lung base s to the symphysis pubis utilizing 5 mm slice thickness at 5 mm interval reconstruction, without admi nistration of IV and oral contrast. Multiplanar reformats in the sagittal and coronal plane were generated and reviewed. This exam was performed according to our departmental dose-optimization protocol, which includes auto mated exposure control, adjustment of the mA and/or kV according to patient size and/or use of iterat christopher reconstruction technique. FINDINGS: The lack of IV and oral contrast limits evaluation of solid organs, subtle lesions cannot be excluded. The lung bases demonstrate minimal dependent atelectatic changes. Grossly the unopacified liver, gallbladder, pancreas, spleen and adrenal glands demonstrate to be wit hin normal limits, no significant focal lesions were identified. The kidneys demonstrate grossly unremarkable. There is no evidence for nephrolithiasis and/or hydro nephrosis. No focal masses were demonstrated. Grossly the unopacified stomach, small bowel and large bowel demonstrate to be within normal limits. There is no evidence for bowel dilatation/or free air. The appendix is unremarkable. There are postsu rgical changes within the sigmoid colon. The urinary bladder demonstrate to be within normal limits. The prostate gland demonstrate to be unre markable. The aorta demonstrate to be within normal limits. There is no retroperitoneal lymphadenop athy. There is no evidence for ascites. The bone windows demonstrate minimal degenerative changes. IMPRESSION: No evidence for nephrolithiasis and/or hydronephrosis. Postsurgical changes within the sigmoid colon. Electronically signed by: Wolfgang Tello MD 12/27/2022 2:38 AM CDT Due to temporary technical issues with the PACS/Fluency reporting system, reports are being signed by the in house radiologist without review as a courtesy to ensure prompt reporting. The interpreting r adiologist is fully responsible for the content of the report.
== END 2022-12-27 08:31 | disposition left against medical advice (07) | DRG 385 ==
LOC: ER 00:01 → ERHOLD 03:10 → 2ND 04:02
PROVIDERS: ADMIT Hospitalist; ATTEND Hospitalist
DX: K50.111 Crohn's disease of large intestine with rectal bleeding (principal); K57.33 Diverticulitis of large intestine without perforation or abscess with bleeding; N17.9 Acute kidney failure, unspecified; Z68.41 Body mass index [BMI] 40.0-44.9, adult; E66.9 Obesity, unspecified; G89.29 Other chronic pain; M54.9 Dorsalgia, unspecified; E83.51 Hypocalcemia; F17.200 Nicotine dependence, unspecified, uncomplicated; Z88.6 Allergy status to analgesic agent; Z88.0 Allergy status to penicillin; Z88.1 Allergy status to other antibiotic agents; Z88.8 Allergy status to other drugs, medicaments and biological substances; Z53.29 Procedure and treatment not carried out because of patient's decision for other reasons; Z90.49 Acquired absence of other specified parts of digestive tract
CPT/HCPCS: 36415; 74176; 80053; 83690; 83735; 85025; 86850; 86900; 86901; 96365; 96368; 96375; 99285; J0696; J1170; J2405; J7030

== ENCOUNTER → 2023-04-07 | Emergency (ER) | payer OTHER ==
[~2023-04-07] MED LIST: ALBUTEROL 2.5 MG/3 ML NEB SOL ONE; AZITHROMYCIN 500 MG INJ IVPB ONE; CEFTRIAXONE 1000 MG/VIAL ONE; IPRATROPIUM BROM 0.5MG/2.5ML ONE; METHYLPREDNISOLONE 125 MG INJ ONE; MORPHINE 4 MG/ML SYR ONE; NA CHLORIDE 0.9% 250 ML ONE; ONDANSETRON 4 MG/2 ML VIAL ONE; PROMETHAZINE 25 MG TABLET ONE
--- OUTSIDE RECORDS SUMMARY | 2023-04-07 20:50 | XMS REPORT | Continuity of Care Document ---
Author Name Unknown Address [address] [facility] [address] [place] [address] [facility] thconnect Address [address] 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 Name Role Phone ADALBERTO Attending Clinician Unavailable Werner Zavaleta Attending Clinician [phone] ADALBERTO Admitting Clinician Unavailable Payers Payer Name Policy Type Policy Number Effective Date Expirati on Date Source [facility] (MEDICARE REPLACEMENT/ADVANTAGE - PPO) [id number] Problems Condition Name Condition Details Condition Category Status Onset Date Resolution Date Last Treatment Date Treating Clinician Comments Source Bipolar disorder Bipolar Disorder Problem Active 05-08 00:00: 00 [facility] Depressive disorder Depressive Disorder Problem Active 05-08 00:00: 00 [facility] Attention deficit hyperactiv ity disorder Attention Deficit Hyperactiv ity Disorder Problem Active 05-08 00:00: 00 [facility] Hypertensi ve disorder Hypertensi ve Disorder Problem Active 05-08 00:00: 00 [facility] Chronic obstructiv e lung disease Chronic Obstructiv e Lung Disease Problem Active 05-08 00:00: 00 [facility] Crohn's disease Crohn's Disease Problem Active 05-08 00:00: 00 [facility] Diverticul itis Diverticul itis Problem Active 05-08 00:00: 00 [facility] Osteoarthr itis Osteoarthr itis Problem Active 05-08 00:00: 00 [facility] History of intravenou s drug abuse History of Intravenou s Drug Abuse Problem Active 05-08 00:00: 00 [facility] Allergies, Adverse Reactions, Alerts Allergy Name Allergy Type Status Severity Reaction(s) Onset Date Inactive Date Treating Clinician Comments Source PENICILL INS Allergy to substanc e Active Hives [facility] TORADOL Allergy to substanc e Active Nausea [facility] Aspirin Allergy to substanc e Active Nausea [facility] Ibuprofe n Allergy to substanc e Active Nausea [facility] Medications Ordered Medication Name Filled Medication Name Start Date Stop Date Current Medication? Ordering Clinician Indication Dosage Frequency Signature (SIG) Comments Components Source albuterol sulfate 2.5 mg/3 mL (0.083 %) solution for nebulizatio n Take 2 vials daily albuterol sulfate 2.5 mg/3 mL (0.083 %) solution for nebulizatio n Take 2 vials daily No albuterol sulfate 2.5 mg/3 mL (0.083 %) solution for nebulizati on Take 2 vials daily [facility] albuterol sulfate HFA 90 mcg/actuati on aerosol inhaler 2 puffs Q4-6 hrs albuterol sulfate HFA 90 mcg/actuati on aerosol inhaler 2 puffs Q4-6 hrs No albuterol sulfate HFA 90 mcg/actuat ion aerosol inhaler 2 puffs Q4-6 hrs [facility] alprazolam 1 mg tablet TAKE ONE (1) TABLET(S) BY MOUTH ONCE A DAY NEEDED. alprazolam 1 mg tablet TAKE ONE (1) TABLET(S) BY MOUTH ONCE A DAY NEEDED. No alprazolam 1 mg tablet TAKE ONE (1) TABLET(S) BY MOUTH ONCE A DAY NEEDED. [facility] clindamycin HCl 300 mg capsule TAKE 1 CAPSULE BY MOUTH FOUR TIMES DAILY clindamycin HCl 300 mg capsule TAKE 1 CAPSULE BY MOUTH FOUR TIMES DAILY No clindamyci n HCl 300 mg capsule TAKE 1 CAPSULE BY MOUTH FOUR TIMES DAILY [facility] dextroamphe tamine-amph etamine 20 mg tablet TAKE ONE (1) TABLET(S) BY MOUTH EVERY MORNING. dextroamphe tamine-amph etamine 20 mg tablet TAKE ONE (1) TABLET(S) BY MOUTH EVERY MORNING. No dextroamph etamine-am phetamine 20 mg tablet TAKE ONE (1) TABLET(S) BY MOUTH EVERY MORNING. [facility] prednisone 20 mg tablet TAKE 1 TABLET BY MOUTH DAILY. prednisone 20 mg tablet TAKE 1 TABLET BY MOUTH DAILY. No prednisone 20 mg tablet TAKE 1 TABLET BY MOUTH DAILY. [facility] Vital Signs Vital Name Observation Time Observation Value Comments S ource BP Diastolic 2021-05-08 00:00:00 82 mm[Hg] [facility] Height 2021-05-08 00:00:00 74 [in_i] [facility] BMI (Body Mass Index) 2021-05-08 00:00:00 41.1 kg/m2 [facility] BP Systolic 2021-05-08 00:00:00 124 mm[Hg] [facility] Body Weight 2021-05-08 00:00:00 5120 [oz_av] [facility] Procedures Procedure Date / Time Performed Performing Clinicia n Source Procedure on Hand [facility] Repair of Testis [facility] Repair of Ankle [facility] Knee Surgery [facility] Encounters Start Date/Time End Date/Time Encounter Type Admission Type Attending Clinicians Care Facility Care Department Encounter ID Source 2021-05-12 08:40:00 2021-05-12 08:40:00 Outpatient ERICKSON[facility] [id number] [facility] 2021-05-09 09:40:00 2021-05-09 09:40:00 Outpatient ERSINDY[id number] 2021-05-08 06:02:00 2021-05-08 06:02:00 Outpatient NITASINDY[facility] [id number] [facility] 2021-05-08 00:00:00 2021-05-08 00:00:00 Werner Zavaleta, DO: [address], [place] [address] , Ph. [facility], DR. ZAVALETA [id number] [facility] 2021-05-08 00:00:00 2021-05-08 00:00:00 Outpatient Werner Zavaleta [facility] [id number]
--- NOTE | 2023-04-07 21:49 | RAD REPORT ---
EXAM DESCRIPTION: Saeed Single View04/07/2023 9:20 pm CLINICAL HISTORY: sob COMPARISON: 2016 FINDINGS: The lungs appear clear of acute infiltrate. The heart is normal size IMPRESSION: No acute abnormalities displayed
[2023-04-07 23:00] LABS: Absolute Lymphocytes (CBC) 3.9 K/uL (0.7-4.9); Hematocrit 42.8 % (39.6-49.0); Lymphocytes % 39.1 % (15.3-44.8); MCV 86.4 fL (80-100); MPV 8.8 fL (7.6-11.3); Platelets 207 thou/uL (152-406); RBC Red Blood Cell Count 4.96 M/uL (4.33-5.43)
[2023-04-07 23:12] LABS: SARS-CoV-2 Antigen Rapid Res Negative (Negative)
[2023-04-07 23:26] LABS: ALT/SGPT 31 U/L (16-61); Albumin 3.1 g/dL (3.4-5.0); Alkaline Phosphatase 68 U/L (45-117); BUN Blood Urea Nitrogen 19 mg/dL (7-18); Bicarbonate 26 mEq/L (21-32); Bilirubin Total 0.2 mg/dL (0.2-1.0); Creatine Phosphokinase 91 U/L (39-308); Glomerular Filtration Rate 99 ml/min (=/>90); Glucose Level 105 mg/dL (74-106); Lipase 35 U/L (13-75); NT PRO-BNP 26 pg/mL (<125); Sodium Level 142 mEq/L (136-145); Troponin High Sensitivity 7.7 pg/mL (<58.9)
[2023-04-07 23:27] LABS: AST/SGOT 14 U/L (15-37); Bilirubin Direct < 0.1 mg/dL (0-0.2); Bilirubin Indirect, Calculated ND mg/dL (0.2-0.8); Potassium 3.5 mEq/L (3.5-5.1)
[2023-04-07 23:48] LABS: Protime INR 0.94
--- NOTE | 2023-04-08 00:16 | EDPHYS ---
Physician Documentation [facility] Name: Dennis Keating Age: 48 yrs Sex: Male : 1975 Arrival Date: 04/07/2023 Time: 20:46 Bed 13 Private MD: ED Physician Carmine Coy HPI: 04/07 21:59 This 48 yrs old Male presents to ER via Ambulatory with complaints of Breathing sp4 Difficulty, COPD Exacerbation, Abdominal Pain, Congestion. 04/08 00:23 Patient presents with several days of cough, congestion, dyspnea, with history of COPD, sp4 active smoker.. 00:23 Reports symptoms began about 4 days ago. Patient also reports history of chronic pain, sp4 chronic back pain p.o. and [place] at home on daily basis. Historical: - Allergies: 04/07 21:07 Aspirin; bp 21:07 Cipro PO; bp 21:07 Ibuprofen; bp 21:07 PENICILLINS; bp 21:07 Toradol; bp - PMHx: 21:07 Back pain; CHRONS; Diverticulitis; Myocardial infarction; bp - PSHx: 21:07 bowel resection; Ankle; foot; testicle; knee; hand; bp - Immunization history:: Adult Immunizations up to date. - Social history:: Smoking status: Patient denies any tobacco usage or history of. - Family history:: not pertinent. ROS: 04/08 00:23 Constitutional: Negative for fever, chills, and weight loss, positive cough, positive sp4 congestion, positive shortness of breath, positive wheezing, positive chronic back pain All other systems are negative, Exam: 04/07 22:43 ECG was reviewed by the Attending Physician. EKG 2210 reveals normal sinus rhythm at sp4 the rate of 89. Normal EKG 04/08 00:23 Constitutional: This is a well developed, well nourished patient who is awake, alert, sp4 overweight male, appears dyspneic, nontoxic appearing Head/Face: Normocephalic, atraumatic. Eyes: Pupils equal round and reactive to light, extra-ocular motions intact. Lids and lashes normal. Conjunctiva and sclera are not injected. Cornea within normal limits. Periorbital areas with no swelling, redness, or edema. ENT: Nares patent. No nasal discharge, no septal abnormalities noted. Tympanic membranes are normal and external auditory canals are clear. Oropharynx with no redness, swelling, or masses, exudates, or evidence of obstruction, uvula midline. Mucous membranes moist. Neck: Trachea midline, no thyromegaly or masses palpated, and no cervical lymphadenopathy. Supple, full range of motion without nuchal rigidity, or vertebral point tenderness. Chest/axilla: Normal chest wall appearance and motion. Nontender with no deformity. No lesions are appreciated. Cardiovascular: Regular rate and rhythm with a normal S1 and S2. No gallops, murmurs, or rubs. Normal PMI, no JVD. No pulse deficits. Respiratory: Lungs have equal breath sounds bilaterally, clear to percussion. No rales, rhonchi noted. Positive bilateral expiratory wheezes. Abdomen/GI: Soft, non-tender, with normal bowel sounds. No distension or tympany. No guarding or rebound. No evidence of tenderness throughout. Back: No spinal tenderness. No costovertebral tenderness. MS/ Extremity: Pulses equal, no cyanosis. Neurovascular intact. Full, normal range of motion. Neuro: Awake and alert, GCS 15, oriented to person, place, time, and situation. Cranial nerves II-XII grossly intact. Motor strength 5/5 in all extremities. Sensory grossly intact. Psych: Awake, alert, with orientation to person, place and time. Behavior, mood, and affect are within normal limits Vital Signs: 04/07 21:06 BP 213 / 185; Pulse 102; Resp 20; Temp 98; Pulse Ox 98% ; bp 21:47 BP 118 / 79; Pulse 97; Resp 17 S; Pulse Ox 95% on R/A; ha1 22:15 BP 127 / 68; Pulse 92; Resp 17 S; Pulse Ox 98% on R/A; ha1 22:45 BP 129 / 64; Pulse 83; Resp 17 S; Pulse Ox 98% on R/A; ha1 23:25 BP 120 / 56; Pulse 79; Resp 17 S; Pulse Ox 99% on R/A; ha1 04/08 00:20 BP 123 / 78; Pulse 90; Resp 17 S; Pulse Ox 97% on R/A; ha1 MDM: 04/07 21:04 Patient medically screened. sp4 22:43 ED course: Chest X ray - EXAM DESCRIPTION: Saeed Single View04/07/2023 9:20 pm sp4 CLINICAL HISTORY: sob COMPARISON: 2015 FINDINGS: The lungs appear clear of acute infiltrate. The heart is normal size IMPRESSION: No acute abnormalities displayed. 04/08 00:25 Differential diagnosis: Anxiety Reaction asthma, Bronchitis CHF exacerbation, Chronic sp4 Obstructive Pulmonary Disease. Antibiotic administration: Rocephin and Zithromax IV administered in the ER. Data reviewed: vital signs, nurses notes, lab test result(s), radiologic studies, plain films. ED course: Patient is stable for discharge home. ED course: Chest X ray today - EXAM DESCRIPTION: Saeed Single View04/07/2023 9:20 pm CLINICAL HISTORY: sob COMPARISON: 2015 FINDINGS: The lungs appear clear of acute infiltrate. The heart is normal size IMPRESSION: No acute abnormalities displayed. ED course: Pain is improved after medications in ER. Patient stable for discharge home with diagnosis of acute on chronic bronchitis and COPD exacerbation. 04/07 21:03 Order name: BMP; Complete Time: 23:54 sp4 04/07 21:03 Order name: Blood Culture Adult (2) sp4 04/07 21:03 Order name: CBC with Diff; Complete Time: 23:54 sp4 04/07 21:03 Order name: CPK; Complete Time: 23:54 sp4 04/07 21:03 Order name: Hepatic Function; Complete Time: 23:54 sp4 04/07 21:03 Order name: Lipase; Complete Time: 23:54 sp4 04/07 21:03 Order name: Magnesium; Complete Time: 23:54 sp4 04/07 21:03 Order name: NT PRO-BNP; Complete Time: 23:54 sp4 04/07 21:03 Order name: PT-INR; Complete Time: 23:54 sp4 04/07 21:03 Order name: Ptt, Activated; Complete Time: 23:54 sp4 04/07 21:03 Order name: Troponin HS; Complete Time: 23:54 sp4 04/07 22:00 Order name: SARS RAPID sp4 04/07 22:59 Order name: SARS-COV-2 Antigen Rapid; Complete Time: 23:54 EDMS 04/07 22:59 Order name: Influenza Screen (A ; Complete Time: 23:54 EDMS 04/07 21:03 Order name: XRAY CXR (1 view); Complete Time: 23:54 sp4 04/07 21:03 Order name: EKG; Complete Time: 21:04 sp4 04/07 21:03 Order name: Cardiac monitoring; Complete Time: 22:24 sp4 04/07 21:03 Order name: EKG - Nurse/Tech; Complete Time: 22:24 sp4 04/07 21:03 Order name: IV Saline Lock; Complete Time: 22:48 sp4 04/07 21:03 Order name: Labs collected and sent; Complete Time: 22:48 sp4 04/07 21:03 Order name: O2 Per Protocol; Complete Time: 22:49 sp4 04/07 21:03 Order name: O2 Sat Monitoring; Complete Time: 22:49 sp4 EC/20 22:43 Rate is 89 beats/min. Rhythm is regular, Normal Sinus Rhythm. QRS [place] is Normal. VT sp4 interval is normal. QRS interval is normal. QT interval is normal. No Q waves. T waves are Normal. No ST changes noted. Clinical impression: Normal ECG. Interpreted by me. Reviewed by me. Administered Medications: 22:20 Drug: Albuterol Inhalation 2.5 mg Inhalation every 20 minutes x3 Route: Inhalation; ha1 22:20 Drug: Ipratropium Inhalation Aerosol 0.5 mg Inhalation once; Every 20 min for a total ha1 of 3 treatments x3 Route: Inhalation; 22:30 Drug: Promethazine PO 25 mg PO once Route: PO; ha1 23:00 Follow up: Response: No adverse reaction ha1 22:40 Drug: Albuterol Inhalation 2.5 mg Inhalation every 20 minutes x3 Route: Inhalation; ha1 22:40 Drug: Ipratropium Inhalation Aerosol 0.5 mg Inhalation once; Every 20 min for a total ha1 of 3 treatments x3 Route: Inhalation; 22:40 Drug: Ondansetron IVP 4 mg IVP once; over 2 minutes Route: IVP; Site: left antecubital; ha1 23:10 Follow up: Response: No adverse reaction ha1 22:42 Drug: morphine IVP or IV 4 mg IVP once over 4 mins Route: IVP; Infused Over: 4 mins; ha1 Site: left antecubital; 23:10 Follow up: Response: No adverse reaction; Pain is unchanged, physician notified; RASS: ha1 Alert and Calm (0) 22:43 Drug: MethylPrednisoLONE IVP 125 mg IVP once Route: IVP; Site: left antecubital; ha1 23:00 Follow up: Response: No adverse reaction ha1 22:46 Not Given (Patient Refused): acetaminophen-codeine(300 mg-30 mg) 2 tabs PO once; RASS ha1 on ADMIN: Combtv4, Very Agttd3, Agttd2, Rstlss1, AlertClm0, Drwsy-1, Lt Sdtn-2, Mod Sdtn-3, Dp Sdtn-4, UnArsble-5 22:54 Not Given (not indicated): clonidine0.3 mg PO once sp4 23:20 Drug: Rocephin - Rocephin (cefTRIAXone) IVPB 1 grams IVPB once over 30 mins; (mix in 50 ha1 mL NS) Route: IVPB; Infused Over: 30 mins; Site: left antecubital; 23:35 Follow up: Response: No adverse reaction; IV Status: Completed infusion ha1 23:34 Drug: Zithromax IVPB 500 mg IVPB once over 1 hrs; mix in 250 mL NS Route: IVPB; Infused ha1 Over: 1 hrs; Site: left antecubital; 04/08 00:43 Follow up: Response: No adverse reaction; IV Status: Completed infusion; IV Intake: ha1 250ml 00:00 Drug: Albuterol Inhalation 2.5 mg Inhalation every 20 minutes x3 Route: Inhalation; ha1 00:43 Follow up: Response: No adverse reaction; Marked relief of symptoms ha1 00:00 Drug: Ipratropium Inhalation Aerosol 0.5 mg Inhalation once; Every 20 min for a total ha1 of 3 treatments x3 Route: Inhalation; 00:43 Follow up: Response: No adverse reaction; Marked relief of symptoms ha1 00:05 Drug: morphine IVP or IV 4 mg IVP once over 4 mins Route: IVP; Infused Over: 4 mins; ha1 Site: left antecubital; 00:20 Follow up: Response: No adverse reaction; Pain is decreased; RASS: Alert and Calm (0) ha1 00:05 Drug: Ondansetron IVP 4 mg IVP once; over 2 minutes Route: IVP; Site: left antecubital; ha1 00:20 Follow up: Response: No adverse reaction ha1 Disposition Summary: 04/08/23 00:16 Discharge Ordered Notes: Please consider quitting smoking Location: Home sp4 Problem: new sp4 Symptoms: have improved sp4 Condition: Stable sp4 Diagnosis - COPD/ Chronic obstructive pulmonary disease with (acute) exacerbation sp4 - Acute bronchitis, unspecified sp4 - Acute bacterial bronchitis, chronic back pain, COPD with acute exacerbation, acute sp4 upper respiratory tract infection Followup: sp4 - With: Private Physician - When: 7 - 10 days - Reason: Recheck today's complaints Discharge Instructions: - Discharge Summary Sheet sp4 - Acute Bronchitis, Adult sp4 Forms: - Patient Portal Instructions sp4 Prescriptions: - dextromethorphan-guaifenesin 10-200 mg Oral capsule - take 2 capsule ORAL route every 6 hours PRN cough; 60 capsule; Refills: 0, sp4 Product Selection Permitted - Albuterol Sulfate 2.5 mg /3 mL (0.083 %) Inhalation Solution for Nebulization - inhale 1 unit NEBULIZATION route every 4 hours As needed Dispense 50 vials or sp4 two boxes, Dispense with Nebulizer and Adult Mask, Use 1 vial nebulized Q 4 hours PRN wheezing; 50 unit; Refills: 0, Product Selection Permitted - Zithromax Z-Lopez 250 mg Oral Tablet - take 1 tablet ORAL route as directed for 5 days Day 1 - take two (2) tablets sp4 one time. Day 2, 3, 4 , 5 take one (1) tablet once daily.; 6 tablet; Refills: 0, Product Selection Permitted Signatures: Dispatcher [employer] Junior Delarosa RN RN bp Ayala, Heidy, RN RN ha1 Carmine Coy MD MD sp4 Corrections: (The following items were deleted from the chart) 04/07 23:15 22:58 Influenza Screen (A \T\ B)+[id number].[id number] ordered. EDMS EDMS
--- NOTE | 2023-04-08 00:16 | ER ---
Nurse's Notes [facility] Name: Dennis Keating Age: 48 yrs Sex: Male : 1975 Arrival Date: 04/07/2023 Time: 20:46 Bed 13 Private MD: Diagnosis: COPD/ Chronic obstructive pulmonary disease with (acute) exacerbation;Acute bronchitis, unspecified;Acute bacterial bronchitis, chronic back pain, COPD with acute exacerbation, acute upper respiratory tract infection Presentation: 04/07 21:06 Chief complaint: Patient states: SOB, COUGH x4 DAYS. Coronavirus screen: At this time, bp the client does not indicate any symptoms associated with coronavirus-19. Ebola Screen: No symptoms or risks identified at this time. Initial Sepsis Screen: Does the patient meet any 2 criteria? No. Patient's initial sepsis screen is negative. Does the patient have a suspected source of infection? No. Patient's initial sepsis screen is negative. Risk Assessment: Do you want to hurt yourself or someone else? Patient reports no desire to harm self or others. Onset of symptoms is unknown. 21:06 Method Of Arrival: Ambulatory bp 21:06 Acuity: AMNA 3 bp Triage Assessment: 04/08 00:47 Respiratory: the patient has mild shortness of breath. ha1 Historical: - Allergies: 04/07 21:07 Aspirin; bp 21:07 Cipro PO; bp 21:07 Ibuprofen; bp 21:07 PENICILLINS; bp 21:07 Toradol; bp - PMHx: 21:07 Back pain; CHRONS; Diverticulitis; Myocardial infarction; bp - PSHx: 21:07 bowel resection; Ankle; foot; testicle; knee; hand; bp - Immunization history:: Adult Immunizations up to date. - Social history:: Smoking status: Patient denies any tobacco usage or history of. - Family history:: not pertinent. Screenin/21 00:45 [facility] ED Fall Risk Assessment (Adult) History of falling in the last 3 months, ha1 including since admission No falls in past 3 months (0 pts) Confusion or Disorientation No (0 pts) Intoxicated or Sedated No (0 pts) Impaired Gait No (0 pts) Mobility Assist Device Used No (0 pt) Altered Elimination No (0 pt) Score/Fall Risk Level 0 - 2 = Low Risk Oriented to surroundings, Maintained a safe environment, Educated pt \T\ family on fall prevention, incl call for assistance when getting out of bed. Abuse screen: Denies threats or abuse. Denies injuries from another. Nutritional screening: No deficits noted. Tuberculosis screening: No symptoms or risk factors identified. Assessment: 04/07 21:10 General: Appears uncomfortable, Behavior is calm, cooperative. Pain: Complains of pain ha1 in chest pain when coughing Pain does not radiate. Pain at worst was 9 out of 10 on a pain scale. Quality of pain is described as sharp, throbbing, Pain began 2-3 days ago. Neuro: Level of Consciousness is awake, alert, obeys commands, Oriented to person, place, time, situation. Cardiovascular: Capillary refill < 3 seconds Patient's skin is warm and dry. Cardiovascular: Heart tones S1 S2 present Rhythm is sinus rhythm. Respiratory: Airway is patent Respiratory effort is even, unlabored, Respiratory pattern is regular, symmetrical. Respiratory: Reports shortness of breath at rest pain with cough Breath sounds are clear bilaterally. Derm: Skin is pink, warm \T\ dry. Musculoskeletal: Circulation, motion, and sensation intact. Range of motion: intact in all extremities. 22:00 Reassessment: Patient and/or family updated on plan of care and expected duration. Pain ha1 level reassessed. Patient is alert, oriented x 3, equal unlabored respirations, skin warm/dry/pink. 23:00 Reassessment: Patient and/or family updated on plan of care and expected duration. Pain ha1 level reassessed. Patient is alert, oriented x 3, equal unlabored respirations, skin warm/dry/pink. 04/08 00:00 Reassessment: Patient and/or family updated on plan of care and expected duration. Pain ha1 level reassessed. Patient is alert, oriented x 3, equal unlabored respirations, skin warm/dry/pink. 00:44 Reassessment: Patient and/or family updated on plan of care and expected duration. Pain ha1 level reassessed. Patient is alert, oriented x 3, equal unlabored respirations, skin warm/dry/pink. Patient states feeling better. Patient states symptoms have improved. Vital Signs: 04/07 21:06 BP 213 / 185; Pulse 102; Resp 20; Temp 98; Pulse Ox 98% ; bp 21:47 BP 118 / 79; Pulse 97; Resp 17 S; Pulse Ox 95% on R/A; ha1 22:15 BP 127 / 68; Pulse 92; Resp 17 S; Pulse Ox 98% on R/A; ha1 22:45 BP 129 / 64; Pulse 83; Resp 17 S; Pulse Ox 98% on R/A; ha1 23:25 BP 120 / 56; Pulse 79; Resp 17 S; Pulse Ox 99% on R/A; ha1 04/08 00:20 BP 123 / 78; Pulse 90; Resp 17 S; Pulse Ox 97% on R/A; ha1 ED Course: 04/07 20:49 Patient arrived in ED. mr 21:03 Carmine Coy MD is Attending Physician. sp4 21:04 Patient has correct armband on for positive identification. Placed in gown. Bed in low ha1 position. Call light in reach. Side rails up X 1. Adult w/ patient. 21:07 Triage completed. bp 21:07 Arm band placed on. bp 21:22 XRAY CXR (1 view) In Process Unspecified. EDMS 22:24 Delia Newton, RN is Primary Nurse. ha1 22:49 BMP Sent. ha1 22:49 Blood Culture Adult (2) Sent. ha1 22:49 CBC with Diff Sent. ha1 22:49 CPK Sent. ha1 22:49 Hepatic Function Sent. ha1 22:49 Lipase Sent. ha1 22:49 Magnesium Sent. ha1 22:49 NT PRO-BNP Sent. ha1 22:49 PT-INR Sent. ha1 22:49 Ptt, Activated Sent. ha1 22:49 Troponin HS Sent. ha1 04/08 00:46 No provider procedures requiring assistance completed. IV discontinued, intact, ha1 bleeding controlled, No redness/swelling at site. Pressure dressing applied. 00:47 Provided Education on: medication administration . ha1 Administered Medications: 04/07 22:20 Drug: Albuterol Inhalation 2.5 mg Inhalation every 20 minutes x3 Route: Inhalation; ha1 22:20 Drug: Ipratropium Inhalation Aerosol 0.5 mg Inhalation once; Every 20 min for a total ha1 of 3 treatments x3 Route: Inhalation; 22:30 Drug: Promethazine PO 25 mg PO once Route: PO; ha1 23:00 Follow up: Response: No adverse reaction ha1 22:40 Drug: Albuterol Inhalation 2.5 mg Inhalation every 20 minutes x3 Route: Inhalation; ha1 22:40 Drug: Ipratropium Inhalation Aerosol 0.5 mg Inhalation once; Every 20 min for a total ha1 of 3 treatments x3 Route: Inhalation; 22:40 Drug: Ondansetron IVP 4 mg IVP once; over 2 minutes Route: IVP; Site: left antecubital; ha1 23:10 Follow up: Response: No adverse reaction ha1 22:42 Drug: morphine IVP or IV 4 mg IVP once over 4 mins Route: IVP; Infused Over: 4 mins; ha1 Site: left antecubital; 23:10 Follow up: Response: No adverse reaction; Pain is unchanged, physician notified; RASS: ha1 Alert and Calm (0) 22:43 Drug: MethylPrednisoLONE IVP 125 mg IVP once Route: IVP; Site: left antecubital; ha1 23:00 Follow up: Response: No adverse reaction ha1 22:46 Not Given (Patient Refused): acetaminophen-codeine(300 mg-30 mg) 2 tabs PO once; RASS ha1 on ADMIN: Combtv4, Very Agttd3, Agttd2, Rstlss1, AlertClm0, Drwsy-1, Lt Sdtn-2, Mod Sdtn-3, Dp Sdtn-4, UnArsble-5 22:54 Not Given (not indicated): clonidine0.3 mg PO once sp4 23:20 Drug: Rocephin - Rocephin (cefTRIAXone) IVPB 1 grams IVPB once over 30 mins; (mix in 50 ha1 mL NS) Route: IVPB; Infused Over: 30 mins; Site: left antecubital; 23:35 Follow up: Response: No adverse reaction; IV Status: Completed infusion ha1 23:34 Drug: Zithromax IVPB 500 mg IVPB once over 1 hrs; mix in 250 mL NS Route: IVPB; Infused ha1 Over: 1 hrs; Site: left antecubital; 04/08 00:43 Follow up: Response: No adverse reaction; IV Status: Completed infusion; IV Intake: ha1 250ml 00:00 Drug: Albuterol Inhalation 2.5 mg Inhalation every 20 minutes x3 Route: Inhalation; ha1 00:43 Follow up: Response: No adverse reaction; Marked relief of symptoms ha1 00:00 Drug: Ipratropium Inhalation Aerosol 0.5 mg Inhalation once; Every 20 min for a total ha1 of 3 treatments x3 Route: Inhalation; 00:43 Follow up: Response: No adverse reaction; Marked relief of symptoms ha1 00:05 Drug: morphine IVP or IV 4 mg IVP once over 4 mins Route: IVP; Infused Over: 4 mins; ha1 Site: left antecubital; 00:20 Follow up: Response: No adverse reaction; Pain is decreased; RASS: Alert and Calm (0) ha1 00:05 Drug: Ondansetron IVP 4 mg IVP once; over 2 minutes Route: IVP; Site: left antecubital; ha1 00:20 Follow up: Response: No adverse reaction ha1 Medication: 00:46 VIS not applicable for this client. ha1 Intake: 00:43 IV: 250ml; Total: 250ml. ha1 Outcome: 00:16 Discharge ordered by MD. yoo 00:47 Discharged to home ambulatory, with family, ha1 00:47 Condition: stable 00:47 Discharge instructions given to patient, family, Instructed on discharge instructions, follow up and referral plans. medication usage, Demonstrated understanding of instructions, follow-up care, medications, 00:49 Patient left the ED. ha1 Signatures: Dispatcher [employer] EDMN Deneen Casey Reg Reg mr Peltier, Brian, RN Delia Trejo RN RN ha Carmine Coy MD MD sp4
[2023-04-08 02:52] VITALS: TEMP 98
[2023-04-08 02:57] VITALS: BP 123/78; O2SAT 97
--- NOTE | 2023-04-09 15:11 | EKG ---
Test Date: 2023-04-07 Test Time: 22:10:35 Chairperson Anesthesiology: DIGNA MEASUREMENT RESULTS: Intervals: Rate: 89 TN: 152 QRSD: 92 QT: 364 QTc: 442 [place]: P: 57 TN: 152 QRS: 63 T: 73 INTERPRETIVE STATEMENTS: Normal sinus rhythm Normal ECG Compared to ECG 05/11/2011 02:28:14 No significant changes Electronically Signed On 04-09-23 15:08:54 SALES REPRESENTATIVE [employer] by Dusty Alva
== END ==
LOC: ER 20:46
DX: J44.1 Chronic obstructive pulmonary disease with (acute) exacerbation (principal); J44.0 Chronic obstructive pulmonary disease with (acute) lower respiratory infection; J20.9 Acute bronchitis, unspecified; M54.9 Dorsalgia, unspecified; Z11.52 Encounter for screening for COVID-19; F17.210 Nicotine dependence, cigarettes, uncomplicated; Z88.0 Allergy status to penicillin; Z88.1 Allergy status to other antibiotic agents; Z88.5 Allergy status to narcotic agent; Z88.6 Allergy status to analgesic agent
CPT/HCPCS: 87040 ×2; 85025; 80048; 36415; 83735; 82550; 85610; 80076; 85730; 84484; 83690; 83880; 87804 ×2; 71045; 87811; Q0169; J7613; J7644 ×2; J2930; J2405 ×2; J7050; J0696; 93005; 96365; 96375; 99285

== ENCOUNTER → 2023-04-09 | Emergency (ER) | payer OTHER ==
[~2023-04-09] MED LIST changes: -AZITHROMYCIN 500 MG INJ IVPB ONE; -CEFTRIAXONE 1000 MG/VIAL ONE; +HYDROMORPHONE HCL 1 MG/ML INJ ONE; -MORPHINE 4 MG/ML SYR ONE; -NA CHLORIDE 0.9% 250 ML ONE; -PROMETHAZINE 25 MG TABLET ONE
--- OUTSIDE RECORDS SUMMARY | 2023-04-09 03:46 | XMS REPORT | Continuity of Care Document ---
Author Name Unknown Address [address] [facility] [place] [address] [facility] thconnect Address [address] [facility] [place] [address] Care Team Providers Care Application Packager Name Role Phone ADALBERTO Attending Clinician Unavailable Werner Zavaleta Attending Clinician [phone] ADALBERTO Admitting Clinician Unavailable Payers Payer Name Policy Type Policy Number Effective Date Expirati on Date Source [facility] (MEDICARE REPLACEMENT/ADVANTAGE - PPO) [id number] Problems Condition Name Condition Details Condition Category Status Onset Date Resolution Date Last Treatment Date Treating Clinician Comments Source Bipolar disorder Bipolar Disorder Problem Active 05-08 00:00: 00 [facility] Depressive disorder Depressive Disorder Problem Active 05-08 00:00: 00 [facility] Attention deficit hyperactiv ity disorder Attention Deficit Hyperactiv ity Disorder Problem Active 05-08 00:00: 00 [facility] Hypertensi ve disorder Hypertensi ve Disorder Problem Active 05-08 00:00: 00 [facility] Chronic obstructiv e lung disease Chronic Obstructiv e Lung Disease Problem Active 05-08 00:00: 00 [facility] Crohn's disease Crohn's Disease Problem Active 05-08 00:00: 00 [facility] Diverticul itis Diverticul itis Problem Active 05-08 00:00: 00 [facility] Osteoarthr itis Osteoarthr itis Problem Active 05-08 00:00: 00 [facility] History of intravenou s drug abuse History of Intravenou s Drug Abuse Problem Active 05-08 00:00: 00 [facility] Allergies, Adverse Reactions, Alerts Allergy Name Allergy Type Status Severity Reaction(s) Onset Date Inactive Date Treating Clinician Comments Source TORADOL Allergy to substanc e Active Nausea [facility] Aspirin Allergy to substanc e Active Nausea [facility] Ibuprofe n Allergy to substanc e Active Nausea [facility] PENICILL INS Allergy to substanc e Active Hives [facility] Medications Ordered Medication Name Filled Medication Name [...] for nebulizati on Take 2 vials daily [facility] albuterol sulfate HFA 90 mcg/actuati on aerosol inhaler 2 puffs Q4-6 hrs albuterol sulfate HFA 90 mcg/actuati on aerosol inhaler 2 puffs Q4-6 hrs No albuterol sulfate HFA 90 mcg/actuat ion aerosol inhaler 2 puffs Q4-6 hrs [facility] alprazolam 1 mg tablet TAKE ONE (1) TABLET(S) BY MOUTH ONCE A DAY NEEDED. alprazolam 1 mg tablet TAKE ONE (1) TABLET(S) BY MOUTH ONCE A DAY NEEDED. No alprazolam 1 mg tablet TAKE ONE (1) TABLET(S) BY MOUTH ONCE A DAY NEEDED. [facility] clindamycin HCl 300 mg capsule TAKE 1 CAPSULE BY MOUTH FOUR TIMES DAILY clindamycin HCl 300 mg capsule TAKE 1 CAPSULE BY MOUTH FOUR TIMES DAILY No clindamyci n HCl 300 mg capsule TAKE 1 CAPSULE BY MOUTH FOUR TIMES DAILY [facility] dextroamphe tamine-amph etamine 20 mg tablet TAKE ONE (1) TABLET(S) BY MOUTH EVERY MORNING. dextroamphe tamine-amph etamine 20 mg tablet TAKE ONE (1) TABLET(S) BY MOUTH EVERY MORNING. No dextroamph etamine-am phetamine 20 mg tablet TAKE ONE (1) TABLET(S) BY MOUTH EVERY MORNING. [facility] prednisone 20 mg tablet TAKE 1 TABLET BY MOUTH DAILY. prednisone 20 mg tablet TAKE 1 TABLET BY MOUTH DAILY. No prednisone 20 mg tablet TAKE 1 TABLET BY MOUTH DAILY. [facility] Vital Signs Vital Name Observation Time Observation Value Comments S ource BP Diastolic 2021-05-08 00:00:00 82 mm[Hg] [facility] Height 2021-05-08 00:00:00 74 [in_i] [facility] BMI (Body Mass Index) 2021-05-08 00:00:00 41.1 kg/m2 [facility] BP Systolic 2021-05-08 00:00:00 124 mm[Hg] [facility] Body Weight 2021-05-08 00:00:00 5120 [oz_av] [facility] Procedures Procedure Date / Time Performed Performing Clinicia n Source Procedure on Hand [facility] Repair of Testis [facility] Repair of Ankle [facility] Knee Surgery [facility] Encounters Start Date/Time End Date/Time Encounter Type Admission Type Attending Clinicians Care Facility Care Department Encounter ID Source 2021-05-12 08:40:00 2021-05-12 08:40:00 Outpatient ERICKSON_R [facility] [id number] [facility] 2021-05-09 09:40:00 2021-05-09 09:40:00 Outpatient [email or web address][facility]R [facility] [id number] [facility] 2021-05-08 06:02:00 2021-05-08 06:02:00 Outpatient WAQAR_R [facility] [id number] [facility] 2021-05-08 00:00:00 2021-05-08 00:00:00 Werner Zavaleta, DO: [address], [place] [address] , Ph. [facility], DR. ZAVALETA [id number] [facility] 2021-05-08 00:00:00 2021-05-08 00:00:00 Outpatient Werner Zavaleta [facility] [id number]
--- NOTE | 2023-04-09 04:08 | ER ---
Nurse's Notes [facility] Name: Dennis Keating Age: 48 yrs Sex: Male : 1975 Arrival Date: 04/09/2023 Time: 03:43 Bed 6 Private MD: Diagnosis: COPD exacerbation, informed discharge Presentation: 04/09 04:02 Chief complaint: Patient states: difficulty breathing and abdominal pain for the last 2 as6 days with worsening symptoms tonight. Coronavirus screen: At this time, the client does not indicate any symptoms associated with coronavirus-19. Ebola Screen: No symptoms or risks identified at this time. Initial Sepsis Screen: Does the patient meet any 2 criteria? No. Patient's initial sepsis screen is negative. Does the patient have a suspected source of infection? No. Patient's initial sepsis screen is negative. Risk Assessment: Do you want to hurt yourself or someone else? Patient reports no desire to harm self or others. Onset of symptoms was April 07, 2023. 04:02 Method Of Arrival: Wheelchair as6 04:02 Acuity: AMNA 2 as6 Historical: - Allergies: 04:02 Aspirin; as6 04:02 Cipro PO; as6 04:02 Ibuprofen; as6 04:02 PENICILLINS; as6 04:02 Toradol; as6 - PMHx: 04:02 Back pain; CHRONS; Diverticulitis; Myocardial infarction; Chronic obstructive lung as6 disease; - PSHx: 04:02 Ankle; bowel resection; foot; hand; knee; testicle; as6 - Immunization history:: Adult Immunizations up to date. - Social history:: Smoking status: Patient reports the use of cigarette tobacco products, smokes one pack cigarettes per day. Screenin:25 [facility] ED Fall Risk Assessment (Adult) History of falling in the last 3 months, km8 including since admission No falls in past 3 months (0 pts) Confusion or Disorientation No (0 pts) Intoxicated or Sedated No (0 pts) Impaired Gait No (0 pts) Mobility Assist Device Used No (0 pt) Altered Elimination No (0 pt) Score/Fall Risk Level 0 - 2 = Low Risk Oriented to surroundings, Maintained a safe environment, Educated pt \T\ family on fall prevention, incl call for assistance when getting out of bed, Assessed \T\ reinforced patient's understanding of fall precautions. Abuse screen: Denies threats or abuse. Denies injuries from another. Nutritional screening: No deficits noted. Tuberculosis screening: No symptoms or risk factors identified. Assessment: 04:25 General: Appears in no apparent distress. uncomfortable, Behavior is calm, cooperative, km8 appropriate for age. Pain: Complains of pain in abdomen Pain currently is 10 out of 10 on a pain scale. Neuro: Level of Consciousness is awake, alert, obeys commands, Oriented to person, place, time, situation. Cardiovascular: Reports shortness of breath, Capillary refill < 3 seconds Patient's skin is warm and dry. Rhythm is sinus rhythm. Respiratory: Reports shortness of breath cough that is Airway is patent Respiratory effort is even, labored, Respiratory pattern is regular, symmetrical, Breath sounds with wheezes. GI: Reports lower abdominal pain, upper abdominal pain. : No signs and/or symptoms were reported regarding the genitourinary system. EENT: No signs and/or symptoms were reported regarding the EENT system. Derm: No signs and/or symptoms reported regarding the dermatologic system. Skin is intact, is healthy with good turgor, Skin is dry, Skin is pink, warm \T\ dry. normal, Skin temperature is warm. Musculoskeletal: Circulation, motion, and sensation intact. Range of motion: intact in all extremities. 05:06 Reassessment: Patient appears in no apparent distress at this time. Patient and/or km8 family updated on plan of care and expected duration. Pain level reassessed. Patient is alert, oriented x 3, equal unlabored respirations, skin warm/dry/pink. Patient states symptoms have improved. pt refusing to be hospitalized; Dr. Larios at bedside speaking with pt; pt to be discharged after 2nd breathing treatment. Vital Signs: 04:00 BP 150 / 105; Pulse 100; Resp 20 S; Temp 99.1(TE); Pulse Ox 99% on R/A; Weight 149.69 as6 kg (R); Height 6 ft. 3 in. (R); Pain 9/10; 05:00 BP 127 / 83; Pulse 85; Resp 20; Pulse Ox 98% on Nebulizer Mask; km8 04:00 Body Mass Index 41.25 (149.69 kg, 190.5 cm) as6 04:00 Pain Scale: Adult as6 Dre Coma Score: 04:25 Eye Response: spontaneous(4). Motor Response: obeys commands(6). Verbal Response: km8 oriented(5). Total: 15. ED Course: 03:44 Patient arrived in ED. jj6 03:45 Shayy Larios MD is Attending Physician. sp3 04:00 Arm band placed on. as6 04:04 Triage completed. as6 04:07 Ricky Quintana MD is Hospitalizing Provider. sp3 04:16 XRAY Chest (1 view) In Process Unspecified. EDMS 04:20 Missed attempt(s): 20 gauge in left antecubital area. Bleeding controlled, band aid km8 applied, catheter tip intact. 04:25 Patient has correct armband on for positive identification. Bed in low position. Call km8 light in reach. Side rails up X2. Client placed on continuous cardiac and pulse oximetry monitoring. NIBP monitoring applied. Door closed. Noise minimized. Lights dimmed. 04:25 Inserted saline lock: 20 gauge in left wrist, using aseptic technique. km8 04:25 Patient maintains SpO2 saturation greater than 95% on room air. km8 04:28 No provider procedures requiring assistance completed. km8 05:40 Provided Education on: d/c teaching. km8 05:40 IV discontinued, intact, bleeding controlled, No redness/swelling at site. Pressure km8 dressing applied. Administered Medications: 04:14 Drug: DuoNeb Nebulize (3:1) (2.5 mg - 0.5 mg) 3 ml Nebulizer once Route: Nebulizer; km8 05:06 Follow up: Response: No adverse reaction km8 04:24 Drug: MethylPrednisoLONE IVP 125 mg IVP once Route: IVP; Site: left wrist; km8 05:06 Follow up: Response: No adverse reaction km8 04:35 Drug: HYDROmorphone IVP 1 mg IVP once Route: IVP; Site: left wrist; km8 05:06 Follow up: Response: No adverse reaction; Pain is decreased km8 04:35 Drug: Ondansetron IVP 4 mg IVP once; over 2 minutes Route: IVP; Site: left wrist; km8 05:06 Follow up: Response: No adverse reaction km8 05:05 Drug: DuoNeb Nebulize (3:1) (2.5 mg - 0.5 mg) 3 ml Nebulizer once Route: Nebulizer; km8 05:42 Follow up: Response: No adverse reaction km8 Medication: 04:25 VIS not applicable for this client. km8 Outcome: 04:07 Decision to Hospitalize by Provider. sp3 05:05 Discharge ordered by . sp3 05:42 Discharged to home ambulatory, km8 05:42 Condition: good 05:42 Discharge instructions given to patient, Instructed on discharge instructions, follow up and referral plans. Demonstrated understanding of instructions, follow-up care, 05:43 Patient left the ED. km8 Signatures: Dispatcher [employer] EDMS Shayy Larios MD MD sp3 Yudith Luceroj6 Eduar Zimmerman RN RN as6 Kathy Munoz RN RN km8 Corrections: (The following items were deleted from the chart) 04:29 04:28 Respiratory: Onset: The symptoms/episode began/occurred gradually, the patient km8 has moderate shortness of breath km8 04:29 04:28 General: Appears in no apparent distress. uncomfortable, km8 km8 04:29 04:28 Respiratory: Airway is patent Respiratory effort is even, labored, Respiratory km8 pattern is regular, symmetrical, km8
--- NOTE | 2023-04-09 04:08 | EDPHYS ---
Physician Documentation [facility] Name: Dennis Keating Age: 48 yrs Sex: Male : 1975 Arrival Date: 04/09/2023 Time: 03:43 Bed 6 Private MD: ED Physician Shayy Larios HPI: 04/09 03:59 This 48 yrs old Male presents to ER via Unassigned with complaints of Breathing sp3 Difficulty. 04:03 48-year-old male with a history of COPD, prior NV, Crohn's disease seen yesterday for sp3 COPD exacerbation and discharged home now presents again for recurrent dyspnea, inspiratory and expiratory wheezing and breathing difficulty. He denies chest pain, fever, headache, abdominal pain, nausea, vomiting, diarrhea, back pain, syncope, near syncope, rash, bleeding, or any other signs or symptoms on ROS at this time.. Historical: - Allergies: 04:02 Aspirin; as6 04:02 Cipro PO; as6 04:02 Ibuprofen; as6 04:02 PENICILLINS; as6 04:02 Toradol; as6 - PMHx: 04:02 Back pain; CHRONS; Diverticulitis; Myocardial infarction; Chronic obstructive lung as6 disease; - PSHx: 04:02 Ankle; bowel resection; foot; hand; knee; testicle; as6 - Immunization history:: Adult Immunizations up to date. - Social history:: Smoking status: Patient reports the use of cigarette tobacco products, smokes one pack cigarettes per day. ROS: 04:03 Constitutional: Negative for fever, chills, and weight loss, Eyes: Negative for injury, sp3 pain, redness, and discharge, ENT: Negative for injury, pain, and discharge, Neck: Negative for injury, pain, and swelling, Cardiovascular: Negative for chest pain, palpitations, and edema, Abdomen/GI: Negative for abdominal pain, nausea, vomiting, diarrhea, and constipation, Back: Negative for injury and pain, MS/Extremity: Negative for injury and deformity, Skin: Negative for injury, rash, and discoloration, Neuro: Negative for headache, weakness, numbness, tingling, and seizure, Psych: Negative for depression, anxiety, suicide ideation, homicidal ideation, and hallucinations, Allergy/Immunology: Negative for hives, rash, and allergies, Endocrine: Negative for neck swelling, polydipsia, polyuria, polyphagia, and marked weight changes, 04:03 All other systems are negative, Exam: 04:03 Constitutional: This is a well developed, well nourished patient who is awake, alert, sp3 and in no acute distress. Head/Face: Normocephalic, atraumatic. Eyes: Pupils equal round and reactive to light, extra-ocular motions intact. Lids and lashes normal. Conjunctiva and sclera are non-icteric and not injected. Cornea within normal limits. Periorbital areas with no swelling, redness, or edema. Neck: Trachea midline, no thyromegaly or masses palpated, and no cervical lymphadenopathy. Supple, full range of motion without nuchal rigidity, or vertebral point tenderness. No Meningismus. Chest/axilla: Normal chest wall appearance and motion. Nontender with no deformity. No lesions are appreciated. Cardiovascular: Regular rate and rhythm with a normal S1 and S2. No gallops, murmurs, or rubs. Normal PMI, no JVD. No pulse deficits. Abdomen/GI: Soft, non-tender, with normal bowel sounds. No distension or tympany. No guarding or rebound. No evidence of tenderness throughout. Back: No spinal tenderness. No costovertebral tenderness. Full range of motion. Skin: Warm, dry with normal turgor. Normal color with no rashes, no lesions, and no evidence of cellulitis. MS/ Extremity: Pulses equal, no cyanosis. Neurovascular intact. Full, normal range of motion. Neuro: Awake and alert, GCS 15, oriented to person, place, time, and situation. Cranial nerves II-XII grossly intact. Motor strength 5/5 in all extremities. Sensory grossly intact. Cerebellar exam normal. Normal gait. Psych: Awake, alert, with orientation to person, place and time. Behavior, mood, and affect are within normal limits. 04:03 Respiratory: Respiratory and inspiratory wheezing noted. No accessory muscle use., 04:25 ECG was reviewed by the Attending Physician. EKG demonstrates normal sinus rhythm at 83 sp3 bpm with normal intervals, normal QRS, normal axis, normal ST/T segments without evidence of acute ischemia. Vital Signs: 04:00 BP 150 / 105; Pulse 100; Resp 20 S; Temp 99.1(TE); Pulse Ox 99% on R/A; Weight 149.69 as6 kg (R); Height 6 ft. 3 in. (R); Pain 9/10; 05:00 BP 127 / 83; Pulse 85; Resp 20; Pulse Ox 98% on Nebulizer Mask; km8 04:00 Body Mass Index 41.25 (149.69 kg, 190.5 cm) as6 04:00 Pain Scale: Adult as6 Peerless Coma Score: 04:25 Eye Response: spontaneous(4). Motor Response: obeys commands(6). Verbal Response: km8 oriented(5). Total: 15. MDM: 03:59 Patient medically screened. sp3 04:04 Data reviewed: vital signs, nurses notes, old medical records, lab test result(s), EKG, sp3 radiologic studies. ED course: 48-year-old male bounce back for COPD exacerbation seen yesterday and discharged. Patient will receive more steroids and nebulizer treatments and be admitted to the hospital. Patient already took today's dose of Zithromax. He is allergic to penicillin and Cipro.. 05:05 ED course: Patient wants to be discharged and admitted. He states his called and sp3 he has gas coming in from out of town. I advised him that my professional opinion is for him to be admitted however if he wants to be discharged we will comply. I have also recommended that if he has to come back, he will need to stay. . 04/09 04:00 Order name: Basic Metabolic Panel 3 04/09 04:00 Order name: NT PRO-BNP 3 04/09 04:00 Order name: Troponin HS 3 04/09 04:00 Order name: XRAY Chest (1 view) 3 04/09 04:00 Order name: EKG; Complete Time: 04:00 3 04/09 04:00 Order name: Cardiac monitoring; Complete Time: 04:14 3 04/09 04:00 Order name: EKG - Nurse/Tech; Complete Time: :14 3 04/09 04:00 Order name: IV Saline Lock; Complete Time: 04:14 3 04/09 04:00 Order name: Labs collected and sent; Complete Time: 04:14 3 04/09 04:00 Order name: O2 Per Protocol; Complete Time: :14 3 04/09 04:00 Order name: O2 Sat Monitoring; Complete Time: 04:14 sp3 Administered Medications: 04:14 Drug: DuoNeb Nebulize (3:1) (2.5 mg - 0.5 mg) 3 ml Nebulizer once Route: Nebulizer; km8 05:06 Follow up: Response: No adverse reaction km8 04:24 Drug: MethylPrednisoLONE IVP 125 mg IVP once Route: IVP; Site: left wrist; km8 05:06 Follow up: Response: No adverse reaction km8 04:35 Drug: HYDROmorphone IVP 1 mg IVP once Route: IVP; Site: left wrist; km8 05:06 Follow up: Response: No adverse reaction; Pain is decreased km8 04:35 Drug: Ondansetron IVP 4 mg IVP once; over 2 minutes Route: IVP; Site: left wrist; km8 05:06 Follow up: Response: No adverse reaction km8 05:05 Drug: DuoNeb Nebulize (3:1) (2.5 mg - 0.5 mg) 3 ml Nebulizer once Route: Nebulizer; km8 05:42 Follow up: Response: No adverse reaction km8 Disposition Summary: 04/09/23 05:05 Discharge Ordered Notes: Location: Home(04/09/23 05:05) sp3 Condition: Stable(04/09/23 05:05) sp3 Diagnosis - COPD exacerbation, informed discharge sp3 Followup: sp3 - With: Private Physician - When: Upon discharge from the Emergency Department - Reason: Recheck today's complaints Discharge Instructions: - Discharge Summary Sheet sp3 - Living With COPD sp3 Forms: - Medication Reconciliation Form sp3 - Thank You Letter sp3 - Antibiotic Education sp3 - Prescription Opioid Use sp3 - Patient Portal Instructions sp3 - Leadership Thank You Letter sp3 Signatures: Dispatcher [employer] EDMS Shayy Larios MD MD sp3 Eduar Zimmerman RN RN as6 Kathy Munoz RN RN km8 Corrections: (The following items were deleted from the chart) 04:06 04:04 ED course: 48-year-old male bounce back for COPD exacerbation seen yesterday and sp3 discharged. Patient will receive more steroids and nebulizer treatments and be admitted to the hospital. Will also start Levaquin IV.. sp3 05:04 04:07 Observation sp3 sp3 05:04 04:07 Ricky Quintana sp3 sp3 05:04 04:07 Telemetry/MedSurg (observation) sp3 sp3 05:04 04:07 Stable sp3 sp3 05:04 04:07 an acute exacerbation sp3 sp3 05:04 04:07 have worsened sp3 sp3 05:04 04:07 Standard sp3 sp3 05:04 04:07 sp3 sp3 05:04 04:07 COPD exacerbation sp3 sp3
[2023-04-09 05:15] LABS: Troponin High Sensitivity 14.7 pg/mL (<58.9)
[2023-04-09 05:23] LABS: Potassium 3.6 mEq/L (3.5-5.1)
[2023-04-09 07:35] VITALS: BP 127/83; TEMP 99.1; O2SAT 98
--- NOTE | 2023-04-09 13:38 | RAD REPORT ---
EXAM DESCRIPTION: RAD - Chest Single View - 04/09/2023 4:14 am CLINICAL HISTORY: COPD TECHNIQUE: AP chest COMPARISON: None available for comparison FINDINGS: CHEST: Heart: The cardiomediastinal silhouette is within normal limits. Lungs: No focal consolidation. Mediastinum: Unremarkable Pleura: No appreciable effusion. No pneumothorax. The left costophrenic angle is excluded from the fi eld-of-view. Bones: Intact IMPRESSION: No active cardiopulmonary disease. Electronically signed by: Jose Dukes MD 04/09/2023 04:39 AM FIELD PIPE LINES SUPERVISOR Due to temporary technical issues with the PACS/Fluency reporting system, reports are being signed by the in house radiologists without review as a courtesy to insure prompt reporting. The interpreting radiologist is fully responsible for the content of the report.
--- NOTE | 2023-04-09 15:06 | EKG ---
Test Date: 2023-04-09 Test Time: 04:18:20 Heavy Lift Rigger: CIARRA MEASUREMENT RESULTS: Intervals: Rate: 83 NJ: 140 QRSD: 94 QT: 388 QTc: 455 [place]: P: 18 NJ: 140 QRS: 60 T: 25 INTERPRETIVE STATEMENTS: Normal sinus rhythm Normal ECG Compared to ECG 04/07/2023 22:10:35 No significant changes Electronically Signed On 04-09-23 15:05:19 MANAGER OF QUALITY by Dusty Alva
== END ==
LOC: ER 03:43
DX: J44.1 Chronic obstructive pulmonary disease with (acute) exacerbation (principal); F17.210 Nicotine dependence, cigarettes, uncomplicated; Z88.0 Allergy status to penicillin; Z88.1 Allergy status to other antibiotic agents; Z88.5 Allergy status to narcotic agent; Z88.6 Allergy status to analgesic agent
CPT/HCPCS: 93005; 80048; 36415; 84484; 83880; 71045; 94640; 96375; 96374; 99285; J7613; J7644; J1170; J2930; J2405

== ENCOUNTER → 2023-04-13 | Emergency (ER) | payer OTHER ==
[~2023-04-13] MED LIST changes: +HYDROCODONE/CHLORPHEN 5 ML/OSYR ONE; -HYDROMORPHONE HCL 1 MG/ML INJ ONE; +MORPHINE 4 MG/ML SYR ONE
--- OUTSIDE RECORDS SUMMARY | 2023-04-13 05:49 | XMS REPORT | Continuity of Care Document ---
Author Name Unknown Address [address] [facility] [address] [place] [address] [facility] thconnect Address [address] [facility]. [address] [place] [address] Care Team Providers Care Tank Officer Name Role Phone ADALBERTO Attending Clinician Unavailable Werner Zavaleta Attending Clinician [phone] ADALBERTO Admitting Clinician Unavailable Payers Payer Name Policy Type Policy Number Effective Date Expirati on Date Source [facility] (MEDICARE REPLACEMENT/ADVANTAGE - PPO) [id number] Problems Condition Name Condition Details Condition Category Status Onset Date Resolution Date Last Treatment Date Treating Clinician Comments Source Bipolar disorder Bipolar Disorder Problem Active 05-08 00:00: 00 [facility] Depressive disorder Depressive Disorder Problem Active 05-08 00:00: 00 [facility] Attention deficit hyperactiv ity disorder Attention Deficit Hyperactiv ity Disorder Problem Active 05-08 00:00: 00 [facility] Hypertensi ve disorder Hypertensi ve Disorder Problem Active 05-08 00:00: 00 [facility] Chronic obstructiv e lung disease Chronic Obstructiv e Lung Disease Problem Active 05-08 00:00: 00 [facility] Crohn's disease Crohn's Disease Problem Active 05-08 00:00: 00 [facility] Diverticul itis Diverticul itis Problem Active 05-08 00:00: 00 [facility] Osteoarthr itis Osteoarthr itis Problem Active 05-08 00:00: 00 [facility] History of intravenou s drug abuse History of Intravenou s Drug Abuse Problem Active 05-08 00:00: 00 [facility] Allergies, Adverse Reactions, Alerts Allergy Name Allergy Type Status Severity Reaction(s) Onset Date Inactive Date Treating Clinician Comments Source TORADOL Allergy to substanc e Active Nausea [facility] Aspirin Allergy to substanc e Active Nausea [facility] Ibuprofe n Allergy to substanc e Active Nausea [facility] PENICILL INS Allergy to substanc e Active Hives [facility] Medications Ordered Medication Name Filled [...] for nebulizati on Take 2 vials daily [facility] albuterol sulfate HFA 90 mcg/actuati on aerosol inhaler 2 puffs Q4-6 hrs albuterol sulfate HFA 90 mcg/actuati on aerosol inhaler 2 puffs Q4-6 hrs No albuterol sulfate HFA 90 mcg/actuat ion aerosol inhaler 2 puffs Q4-6 hrs [facility] alprazolam 1 mg tablet TAKE ONE (1) TABLET(S) BY MOUTH ONCE A DAY NEEDED. alprazolam 1 mg tablet TAKE ONE (1) TABLET(S) BY MOUTH ONCE A DAY NEEDED. No alprazolam 1 mg tablet TAKE ONE (1) TABLET(S) BY MOUTH ONCE A DAY NEEDED. [facility] clindamycin HCl 300 mg capsule TAKE 1 CAPSULE BY MOUTH FOUR TIMES DAILY clindamycin HCl 300 mg capsule TAKE 1 CAPSULE BY MOUTH FOUR TIMES DAILY No clindamyci n HCl 300 mg capsule TAKE 1 CAPSULE BY MOUTH FOUR TIMES DAILY [facility] dextroamphe tamine-amph etamine 20 mg tablet TAKE ONE (1) TABLET(S) BY MOUTH EVERY MORNING. dextroamphe tamine-amph etamine 20 mg tablet TAKE ONE (1) TABLET(S) BY MOUTH EVERY MORNING. No dextroamph etamine-am phetamine 20 mg tablet TAKE ONE (1) TABLET(S) BY MOUTH EVERY MORNING. [facility] prednisone 20 mg tablet TAKE 1 TABLET BY MOUTH DAILY. prednisone 20 mg tablet TAKE 1 TABLET BY MOUTH DAILY. No prednisone 20 mg tablet TAKE 1 TABLET BY MOUTH DAILY. [facility] Vital Signs Vital Name Observation Time Observation Value Comments S ource BP Diastolic 2021-05-08 00:00:00 82 mm[Hg] [facility] Height 2021-05-08 00:00:00 74 [in_i] [facility] BMI (Body Mass Index) 2021-05-08 00:00:00 41.1 kg/m2 [facility] BP Systolic 2021-05-08 00:00:00 124 mm[Hg] [facility] Body Weight 2021-05-08 00:00:00 5120 [oz_av] [facility] Procedures Procedure Date / Time Performed Performing Clinicia n Source Procedure on Hand [facility] Repair of Testis [facility] Repair of Ankle [facility] Knee Surgery [facility] Encounters Start Date/Time End Date/Time Encounter Type Admission Type Attending Clinicians Care Facility Care Department Encounter ID Source 2021-05-12 08:40:00 2021-05-12 08:40:00 Outpatient ERICKSON_R [facility] [id number] [facility] 2021-05-09 09:40:00 2021-05-09 09:40:00 Outpatient ERSTACIELLE_R [id number] 2021-05-08 06:02:00 2021-05-08 06:02:00 Outpatient WAQAR_R [facility] [id number] [facility] 2021-05-08 00:00:00 2021-05-08 00:00:00 Werner Zavaleta, DO: [address], [place] [address] , Ph. [phone] [facility] - [facility], DR. ZAVALETA [id number] [facility] 2021-05-08 00:00:00 2021-05-08 00:00:00 Outpatient Werner Zavaleta [facility] [id number]
[2023-04-13 06:52] LABS: Absolute Lymphocytes (CBC) 3.3 K/uL (0.7-4.9); Hematocrit 42.5 % (39.6-49.0); MCV 86.4 fL (80-100); MPV 8.6 fL (7.6-11.3); Platelets 202 thou/uL (152-406); Protime INR 0.93; RBC Red Blood Cell Count 4.93 M/uL (4.33-5.43)
[2023-04-13 07:09] LABS: ALT/SGPT 43 U/L (16-61); AST/SGOT 23 U/L (15-37); Albumin 3.1 g/dL (3.4-5.0); Alkaline Phosphatase 76 U/L (45-117); BUN Blood Urea Nitrogen 16 mg/dL (7-18); Bicarbonate 28 mEq/L (21-32); Bilirubin Total 0.2 mg/dL (0.2-1.0); Glomerular Filtration Rate 107 ml/min (=/>90); Glucose Level 100 mg/dL (74-106); Magnesium 2.1 mg/dL (1.6-2.4); NT PRO-BNP 29 pg/mL (<125); Potassium 4.1 mEq/L (3.5-5.1); Protein, Total 7.2 g/dL (6.4-8.2); Sodium Level 136 mEq/L (136-145); Troponin High Sensitivity 8.7 pg/mL (<58.9)
[2023-04-13 07:12] LABS: Bilirubin Direct < 0.1 mg/dL (0-0.2); Bilirubin Indirect, Calculated ND mg/dL (0.2-0.8)
--- NOTE | 2023-04-13 07:55 | ER ---
Nurse's Notes [facility] Name: Dennis Keating Age: 48 yrs Sex: Male : 1975 Arrival Date: 04/13/2023 Time: 05:44 Bed 13 Private MD: Diagnosis: COPD/ Chronic obstructive pulmonary disease with (acute) exacerbation Presentation: 04/13 06:01 Chief complaint: Patient states: cough, difficulty breathing. this started 2 weeks ago as6 and pt was seen in ER several days ago for same issue. provider wanted to admit pt and pt refused. pt symptoms have gotten worse today. Coronavirus screen: At this time, the client does not indicate any symptoms associated with coronavirus-19. Ebola Screen: No symptoms or risks identified at this time. Initial Sepsis Screen: Does the patient meet any 2 criteria? No. Patient's initial sepsis screen is negative. Does the patient have a suspected source of infection? No. Patient's initial sepsis screen is negative. Risk Assessment: Do you want to hurt yourself or someone else? Patient reports no desire to harm self or others. Onset of symptoms was April 13, 2023. 06:01 Method Of Arrival: Ambulatory as6 06:01 Acuity: AMNA 3 as6 Historical: - Allergies: 06:00 Aspirin; as6 06:00 Cipro PO; as6 06:00 Ibuprofen; as6 06:00 PENICILLINS; as6 06:00 Toradol; as6 - PMHx: 06:00 Back pain; Chronic obstructive lung disease; CHRONS; Diverticulitis; Myocardial as6 infarction; - PSHx: 06:00 Ankle; bowel resection; foot; hand; knee; testicle; as6 - Immunization history:: Adult Immunizations up to date. - Social history:: Smoking status: Patient reports the use of cigarette tobacco products, denies chronic smoking, but will smoke occasionally. - Family history:: not pertinent. Screenin:35 [facility] ED Fall Risk Assessment (Adult) History of falling in the last 3 months, nw1 including since admission No falls in past 3 months (0 pts) Confusion or Disorientation No (0 pts) Intoxicated or Sedated No (0 pts) Impaired Gait No (0 pts) Mobility Assist Device Used No (0 pt) Altered Elimination No (0 pt) Score/Fall Risk Level 0 - 2 = Low Risk Oriented to surroundings, Maintained a safe environment, Educated pt \\T\\ family on fall prevention, incl call for assistance when getting out of bed, Assessed \\T\\ reinforced patient's understanding of fall precautions, Provided non-skid footwear, Hourly rounding (assess needs \\T\\ fall precautionary measures) done. Abuse screen: Denies threats or abuse. Denies injuries from another. Nutritional screening: No deficits noted. Tuberculosis screening: No symptoms or risk factors identified. Assessment: 06:35 Reassessment: PT STATES THAT HE WAS TO BE ADMITTED EARLIER IN THE WEEK AND REFUSED nw1 BEING ADMITTED DUE TO THE HOLIDAYS. PT STATES THAT HE STOPPED SMOKING A WEEK AGO AND HAS COPD. PT NOTED WITH NON PRODUCTIVE COUGH AND STATES PAIN WITH COUGHING. IV MEDICATION GIVEN AND TOLERATED. VSS AT THIS TIME. General: Appears in no apparent distress. uncomfortable, obese, Behavior is calm, cooperative, appropriate for age. Pain: Complains of pain in chest Aggravated by COUGH. Cardiovascular: Capillary refill < 3 seconds. Respiratory: Reports cough that is non-productive, Airway is patent Trachea midline Respiratory effort is even, unlabored, Respiratory pattern is regular, symmetrical, Breath sounds are diminished bilaterally. GI: Abdomen is distended, obese, Bowel sounds present X 4 quads. Derm: Skin is intact, is healthy with good turgor, Skin is dry. Musculoskeletal: Circulation, motion, and sensation intact. Capillary refill < 3 seconds, Range of motion: intact in all extremities, 07:10 Reassessment: Patient appears in no apparent distress at this time. Patient and/or ph family updated on plan of care and expected duration. Pain level reassessed. Patient is alert, oriented x 3, equal unlabored respirations, skin warm/dry/pink. Pt requesting additional pain medication, states, " What they gave me didn't help, I'm still in pain" Reports pain to chest and "all over", reports that pain is d/t persistent cough. ERP notified. Reassessment: Oral cough medication given, see KASIA, pt then states, " I can't stay in the hospital, I have a nebulizer and albuterol at home and there's no one else to take care of my kid.". 08:37 Reassessment: Patient appears in no apparent distress at this time. Patient and/or ph family updated on plan of care and expected duration. Pain level reassessed. Patient is alert, oriented x 3, equal unlabored respirations, skin warm/dry/pink. Pt d/c home per request, prescribed antibiotic and oral steroids, states that he will be calling PCP today for follow up. Vital Signs: 05:59 BP 133 / 97; Pulse 97; Resp 22 S; Temp 98.1; Pulse Ox 99% on R/A; Weight 149.69 kg (R); as6 Height 6 ft. 3 in. (R); Pain 9/10; 06:30 BP 138 / 72; Pulse 64; Resp 20; Pulse Ox 96% on R/A; nw1 07:29 Pulse Ox 89% ; rn 08:08 BP 122 / 96; Pulse 81; Resp 20; Pulse Ox 94% on R/A; ph 05:59 Body Mass Index 41.25 (149.69 kg, 190.5 cm) as6 05:59 Pain Scale: Adult as6 ED Course: 05:47 Patient arrived in ED. gm2 05:57 Carmine Coy MD is Attending Physician. sp4 06:00 Arm band placed on. as6 06:03 Triage completed. as6 06:11 Kimber Graham, RN is Primary Nurse. nw1 06:18 XRAY Chest (1 view) In Process Unspecified. EDMS 06:34 Blood Culture Adult (2) Sent. nw1 06:34 Lactate w/ 2H reflex if indic. Sent. nw1 06:34 Basic Metabolic Panel Sent. nw1 06:34 CBC with Diff Sent. nw1 06:34 LFT's Sent. nw1 06:34 Magnesium Sent. nw1 06:34 NT PRO-BNP Sent. nw1 06:34 PT-INR Sent. nw1 06:34 Troponin HS Sent. nw1 06:34 Influenza Screen (a \\T\\ B) Sent. nw1 06:34 COVID-19 SARS RT PCR Sent. nw1 06:35 Patient has correct armband on for positive identification. Placed in gown. Bed in low nw1 position. Call light in reach. Side rails up X2. Provided Education on: POC. Client placed on continuous cardiac and pulse oximetry monitoring. NIBP monitoring applied. hall monitor on. Pulse ox on. NIBP on. Door closed. Warm blanket given. Head of bed elevated. 06:35 No provider procedures requiring assistance completed. Inserted saline lock: 18 gauge nw1 in right antecubital area, using aseptic technique. Blood collected. 06:50 Inserted saline lock: 20 gauge in left hand, using aseptic technique. Blood collected. nw1 07:13 Attending Physician role handed off by Carmine Coy MD rn 07:13 Jose John MD is Attending Physician. rn 07:53 Yosi Chun is Hospitalizing Provider. rn 08:39 IV discontinued, intact, bleeding controlled, No redness/swelling at site. Pressure ph dressing applied. Administered Medications: 06:34 Drug: Ondansetron IVP 4 mg IVP once; over 2 minutes Route: IVP; Site: left antecubital; nw1 08:38 Follow up: Response: No adverse reaction ph 06:34 Drug: DuoNeb Nebulize (3:1) (2.5 mg - 0.5 mg) 3 ml Nebulizer once Route: Nebulizer; nw1 08:38 Follow up: Response: No adverse reaction ph 06:34 Drug: MethylPrednisoLONE IVP 125 mg IVP once Route: IVP; Site: left antecubital; nw1 08:38 Follow up: Response: No adverse reaction ph 06:35 Drug: morphine IVP or IV 4 mg IVP once over 4 mins Route: IVP; Infused Over: 4 mins; nw1 Site: left antecubital; 08:38 Follow up: Response: No adverse reaction ph 08:03 Drug: Tussionex Pennkinetic ER PO Suspension 5 ml PO once Route: PO; ph 08:38 Follow up: Response: No adverse reaction ph Medication: 06:35 VIS not applicable for this client. nw1 Outcome: 07:54 Decision to Hospitalize by Provider. rn 08:31 Discharge ordered by . rn 08:39 Discharged to home ambulatory, ph 08:39 Condition: stable 08:39 Discharge instructions given to patient, Instructed on discharge instructions, follow up and referral plans. medication usage, Demonstrated understanding of instructions, follow-up care, medications, Prescriptions given X 2, 08:39 Patient left the ED. ph Signatures: Dispatcher [employer] EDMS Jose John MD MD rn Hall, Patricia, RN RN ph Slawson, Ashby, RN RN as6 Carmine Coy MD MD sp4 Alyssa Lopez gm2 Kimber Graham, RN RN nw1
--- NOTE | 2023-04-13 07:55 | EDPHYS ---
Physician Documentation [facility] Name: Dennis Keating Age: 48 yrs Sex: Male : 1975 Arrival Date: 04/13/2023 Time: 05:44 Bed 13 Private MD: ED Physician Jose John HPI: 04/13 05:57 This 48 yrs old Male presents to ER via Unassigned with complaints of Cough, sp4 Congestion, Fever, Flu Symptoms. 06:14 11-year-old male with history of back pain, chronic COPD, Crohn's disease, sp4 diverticulitis, prior MN presents with worsening onset chest discomfort, shortness of breath, wheezing, cough, subjective fevers and bodyaches. all starting 2 weeks ago. Patient was here 04/07/2023 and then again at 04/09/2023 for the same complaints. Patient was marked for admission on 04/09/2023 but he decided to go home. This time patient states his symptoms are not getting any better.. . Historical: - Allergies: 06:00 Aspirin; as6 06:00 Cipro PO; as6 06:00 Ibuprofen; as6 06:00 PENICILLINS; as6 06:00 Toradol; as6 - PMHx: 06:00 Back pain; Chronic obstructive lung disease; CHRONS; Diverticulitis; Myocardial as6 infarction; - PSHx: 06:00 Ankle; bowel resection; foot; hand; knee; testicle; as6 - Immunization history:: Adult Immunizations up to date. - Social history:: Smoking status: Patient reports the use of cigarette tobacco products, denies chronic smoking, but will smoke occasionally. - Family history:: not pertinent. ROS: 06:14 Constitutional: Negative for fever, chills, and weight loss, positive cough, positive sp4 congestion, positive body aches, positive chest pains, positive for wheezing and shortness of breath 06:14 All other systems are negative, Exam: 06:14 Constitutional: This is a well developed, well nourished patient who is awake, alert, sp4 and in no acute distress. Head/Face: Normocephalic, atraumatic. Eyes: Pupils equal round and reactive to light, extra-ocular motions intact. Lids and lashes normal. Conjunctiva and sclera are not injected. Cornea within normal limits. Periorbital areas with no swelling, redness, or edema. ENT: Nares patent. No nasal discharge, no septal abnormalities noted. Tympanic membranes are normal and external auditory canals are clear. Oropharynx with no redness, swelling, or masses, exudates, or evidence of obstruction, uvula midline. Mucous membranes moist. Neck: Trachea midline, no thyromegaly or masses palpated, and no cervical lymphadenopathy. Supple, full range of motion without nuchal rigidity, or vertebral point tenderness. Chest/axilla: Normal chest wall appearance and motion. Nontender with no deformity. No lesions are appreciated. Cardiovascular: Regular rate and rhythm with a normal S1 and S2. No gallops, murmurs, or rubs. Normal PMI, no JVD. No pulse deficits. Respiratory: Lungs have equal breath sounds bilaterally, diffuse expiratory wheezing in all lung steward Abdomen/GI: Soft, non-tender, with normal bowel sounds. No distension or tympany. No guarding or rebound. No evidence of tenderness throughout. Back: No spinal tenderness. No costovertebral tenderness. Skin: Warm, dry with normal turgor. Normal color with no rashes, no lesions, and no evidence of cellulitis. MS/ Extremity: Pulses equal, no cyanosis. Neurovascular intact. Full, normal range of motion. Neuro: Awake and alert, GCS 15, oriented to person, place, time, and situation. Cranial nerves II-XII grossly intact. Motor strength 5/5 in all extremities. Sensory grossly intact. Psych: Awake, alert, with orientation to person, place and time. Behavior, mood, and affect are within normal limits Vital Signs: 05:59 BP 133 / 97; Pulse 97; Resp 22 S; Temp 98.1; Pulse Ox 99% on R/A; Weight 149.69 kg (R); as6 Height 6 ft. 3 in. (R); Pain 9/10; 06:30 BP 138 / 72; Pulse 64; Resp 20; Pulse Ox 96% on R/A; nw1 07:29 Pulse Ox 89% ; rn 08:08 BP 122 / 96; Pulse 81; Resp 20; Pulse Ox 94% on R/A; ph 05:59 Body Mass Index 41.25 (149.69 kg, 190.5 cm) as6 05:59 Pain Scale: Adult as6 MDM: 05:58 Patient medically screened. sp4 07:51 Differential Diagnosis: Bronchitis Influenza Upper Respiratory Infection Viral Syndrome rn Pneumonia. Data reviewed: vital signs, nurses notes, lab test result(s), radiologic studies, plain films, and as a result, I will admit patient. Consideration of Admission/Observation Patient was admitted/placed on observation. Escalation of care including admission/observation considered. Management of patient was discussed with the following: Hospitalist: Discussed with hospitalist, will evaluate and admit. Independent interpretation of the following test(s) in the Emergency Department X-Ray: My interpretation is Chest x-ray images negative for pneumothorax or pneumonia per my interpretation. Counseling: I had a detailed discussion with the patient and/or guardian regarding the historical points, exam findings, and any diagnostic results supporting the discharge/admit diagnosis, lab results, radiology results, the need for further work-up and treatment in the hospital. Response to treatment: the patient's symptoms have mildly improved after treatment, and as a result, I will admit patient. ED course: Chest x-ray images negative, went to reevaluate patient, still tachypneic and oxygen was 89% on room air, patient seems mainly concerned about pain and receiving pain medication. Reports pain with cough. No pain with deep inspiration. No evidence of trauma. Will give cough medication and admit for further treatment as this is patient's third visit in a week. No evidence of acute infection or cardiac etiology at this time.. 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 States feels better and needs to go home. Request steroids, has nebulizer treatments. Understands risks of leaving once again instead of admission for treatment. Understands risk of worsening respiratory problems including respiratory failure and even .. 04/13 05:58 Order name: COVID-19 SARS RT PCR; Complete Time: 07:24 sp4 04/13 05:58 Order name: Influenza Screen (a \T\ B); Complete Time: 07:24 sp4 04/13 06:08 Order name: Basic Metabolic Panel; Complete Time: 07:23 sp4 04/13 06:08 Order name: CBC with Diff; Complete Time: 07:12 sp4 04/13 06:08 Order name: LFT's; Complete Time: 07:23 sp4 04/13 06:08 Order name: Magnesium; Complete Time: 07:23 04/13 06:08 Order name: NT PRO-BNP; Complete Time: 07:23 04/13 06:08 Order name: PT-INR; Complete Time: 07:12 04/13 06:08 Order name: Troponin HS; Complete Time: 07:23 04/13 06:08 Order name: Lactate w/ 2H reflex if indic.; Complete Time: 07:23 04/13 06:08 Order name: Blood Culture Adult (2) 04/13 06:08 Order name: XRAY Chest (1 view) 04/13 06:08 Order name: EKG; Complete Time: 06:08 04/13 06:08 Order name: Cardiac monitoring; Complete Time: 06:34 04/13 06:08 Order name: EKG - Nurse/Tech; Complete Time: 08:39 04/13 06:08 Order name: IV Saline Lock; Complete Time: 06:34 04/13 06:08 Order name: Labs collected and sent; Complete Time: 06:34 04/13 06:08 Order name: O2 Per Protocol; Complete Time: 06:34 04/13 06:08 Order name: O2 Sat Monitoring; Complete Time: 06:34 Administered Medications: 06:34 Drug: Ondansetron IVP 4 mg IVP once; over 2 minutes Route: IVP; Site: left antecubital; nw1 08:38 Follow up: Response: No adverse reaction ph 06:34 Drug: DuoNeb Nebulize (3:1) (2.5 mg - 0.5 mg) 3 ml Nebulizer once Route: Nebulizer; nw1 08:38 Follow up: Response: No adverse reaction ph 06:34 Drug: MethylPrednisoLONE IVP 125 mg IVP once Route: IVP; Site: left antecubital; nw1 08:38 Follow up: Response: No adverse reaction ph 06:35 Drug: morphine IVP or IV 4 mg IVP once over 4 mins Route: IVP; Infused Over: 4 mins; nw1 Site: left antecubital; 08:38 Follow up: Response: No adverse reaction ph 08:03 Drug: Tussionex Pennkinetic ER PO Suspension 5 ml PO once Route: PO; ph 08:38 Follow up: Response: No adverse reaction ph Disposition Summary: 04/13/23 08:31 Discharge Ordered Notes: Location: Home(04/13/23 08:31) rn Problem: an ongoing problem(04/13/23 08:31) rn Symptoms: have improved(04/13/23 08:31) rn Condition: Stable(04/13/23 08:31) rn Diagnosis - COPD/ Chronic obstructive pulmonary disease with (acute) exacerbation(04/13/23 rn 08:31) Followup: rn - With: Private Physician - When: As needed - Reason: Recheck today's complaints, Re-evaluation by your physician Discharge Instructions: - Discharge Summary Sheet rn - Chronic Obstructive Pulmonary Disease rn Forms: - Medication Reconciliation Form rn - Thank You Letter rn - Antibiotic rn physician office - Prescription Opioid Use rn - Patient Portal Instructions rn - Leadership Thank You Letter rn Prescriptions: - Prednisone 20 mg Oral Tablet - take 3 tablets ORAL route once daily for 5 days; 15 tablet; Refills: 0, Product rn Selection Permitted - Zithromax Z-Lopez 250 mg Oral Tablet - take 1 tablet ORAL route as directed for 5 days Day 1 - take two (2) tablets rn one time. Day 2, 3, 4 , 5 take one (1) tablet once daily.; 6 tablet; Refills: 0, Product Selection Permitted Signatures: Dispatcher [employer] Jose Ziegler MD MD rn Hall, Patricia, RN RN Eduar Carbone, RN RN as6 Carmine Coy MD MD sp4 Kimber Graham RN RN nw1 Corrections: (The following items were deleted from the chart) 08: 07:54 Observation rn rn 08: 07:54 Yosi Chun rn rn 08: 07:54 Telemetry/MedSurg (observation) rn rn 08: 07:54 Stable rn rn 08: 07:54 an ongoing problem rn rn 08: 07:54 have improved rn rn 08: 07:54 Standard rn rn 08: 07:54 rn rn 08: 07:54 COPD/ Chronic obstructive pulmonary disease with (acute) exacerbation rn rn 08: 07:54 Chest pain, unspecified rn rn 08: 07:54 Dyspnea, unspecified rn rn
[2023-04-13 09:10] VITALS: TEMP 98.1
[2023-04-13 09:18] VITALS: BP 122/96; O2SAT 94
--- NOTE | 2023-04-13 10:25 | RAD REPORT ---
EXAM DESCRIPTION: RAD - Chest Single View - 04/13/2023 6:16 am CLINICAL HISTORY: CHEST PAIN COMPARISON: None. FINDINGS: Single frontal radiograph view of the chest. Cardiomediastinal silhouette: Normal size and contour. Lungs: No consolidation, pneumothorax, or pleural effusion. Low lung volumes. Bones: No acute osseous abnormality. Upper abdomen: No abnormality identified. IMPRESSION: 1. No acute pulmonary process identified. Low lung volumes. Electronically signed by: Hua Ramirez DO 04/13/2023 06:31 AM [facility] [employer] [facility] M Due to temporary technical issues with the PACS/Fluency reporting system, reports are being signed by the in house radiologists without review as a courtesy to insure prompt reporting. The interpreting radiologist is fully responsible for the content of the report.
== END ==
LOC: ER 05:44
DX: J44.1 Chronic obstructive pulmonary disease with (acute) exacerbation (principal); Z11.52 Encounter for screening for COVID-19; I25.2 Old myocardial infarction; F17.210 Nicotine dependence, cigarettes, uncomplicated; Z88.0 Allergy status to penicillin; Z88.1 Allergy status to other antibiotic agents; Z88.5 Allergy status to narcotic agent; Z88.6 Allergy status to analgesic agent
CPT/HCPCS: 87040 ×2; 85025; 80048; 36415; 83735; 87205 ×2; 85610; 80076; 83605; 84484; 83880; 87635; 87804 ×2; 71045; 94640; 96375; 96374; 99285; J7613; J7644; J2930; J2405

== ENCOUNTER → 2023-04-18 | Emergency (ER) | payer OTHER ==
--- OUTSIDE RECORDS SUMMARY | 2023-04-18 18:35 | XMS REPORT | Continuity of Care Document ---
Author Name Unknown Address [address] [facility] [address] [place] [address] [facility] thconnect Address 1200 [facility]. [address] [place] [address] Care Team Providers Care Nnp Name Role Phone ADALBERTO Attending Clinician Unavailable Werner Zavaleta Attending Clinician [phone] ADALBERTO Admitting Clinician Unavailable Payers Payer Name Policy Type Policy Number Effective Date Expirati on Date Source [facility] (MEDICARE REPLACEMENT/ADVANTAGE - PPO) [id number] Problems Condition Name Condition Details Condition Category Status Onset Date Resolution Date Last Treatment Date Treating Clinician Comments Source Bipolar disorder Bipolar Disorder Problem Active 05-08 00:00: 00 [facility] Depressive disorder Depressive Disorder Problem Active 05-08 00:00: 00 [facility] Attention deficit hyperactiv ity disorder Attention Deficit Hyperactiv ity Disorder Problem Active 05-08 00:00: 00 [facility] Hypertensi ve disorder Hypertensi ve Disorder Problem Active 05-08 00:00: 00 [facility] Chronic obstructiv e lung disease Chronic Obstructiv e Lung Disease Problem Active 05-08 00:00: 00 [facility] Crohn's disease Crohn's Disease Problem Active 05-08 00:00: 00 [facility] Diverticul itis Diverticul itis Problem Active 05-08 00:00: 00 [facility] Osteoarthr itis Osteoarthr itis Problem Active 05-08 00:00: 00 [facility] History of intravenou s drug abuse History of Intravenou s Drug Abuse Problem Active 05-08 00:00: 00 [facility] Allergies, Adverse Reactions, Alerts Allergy Name Allergy Type Status Severity Reaction(s) Onset Date Inactive Date Treating Clinician Comments Source TORADOL Allergy to substanc e Active Nausea [facility] Aspirin Allergy to substanc e Active Nausea [facility] Ibuprofe n Allergy to substanc e Active Nausea [facility] PENICILL INS Allergy to substanc e Active Hives [facility] Medications Ordered Medication Name Filled Medication Name [...] for nebulizati on Take 2 vials daily [facility] albuterol sulfate HFA 90 mcg/actuati on aerosol inhaler 2 puffs Q4-6 hrs albuterol sulfate HFA 90 mcg/actuati on aerosol inhaler 2 puffs Q4-6 hrs No albuterol sulfate HFA 90 mcg/actuat ion aerosol inhaler 2 puffs Q4-6 hrs [facility] alprazolam 1 mg tablet TAKE ONE (1) TABLET(S) BY MOUTH ONCE A DAY NEEDED. alprazolam 1 mg tablet TAKE ONE (1) TABLET(S) BY MOUTH ONCE A DAY NEEDED. No alprazolam 1 mg tablet TAKE ONE (1) TABLET(S) BY MOUTH ONCE A DAY NEEDED. [facility] clindamycin HCl 300 mg capsule TAKE 1 CAPSULE BY MOUTH FOUR TIMES DAILY clindamycin HCl 300 mg capsule TAKE 1 CAPSULE BY MOUTH FOUR TIMES DAILY No clindamyci n HCl 300 mg capsule TAKE 1 CAPSULE BY MOUTH FOUR TIMES DAILY [facility] dextroamphe tamine-amph etamine 20 mg tablet TAKE ONE (1) TABLET(S) BY MOUTH EVERY MORNING. dextroamphe tamine-amph etamine 20 mg tablet TAKE ONE (1) TABLET(S) BY MOUTH EVERY MORNING. No dextroamph etamine-am phetamine 20 mg tablet TAKE ONE (1) TABLET(S) BY MOUTH EVERY MORNING. [facility] prednisone 20 mg tablet TAKE 1 TABLET BY MOUTH DAILY. prednisone 20 mg tablet TAKE 1 TABLET BY MOUTH DAILY. No prednisone 20 mg tablet TAKE 1 TABLET BY MOUTH DAILY. [facility] Vital Signs Vital Name Observation Time Observation Value Comments S ource BP Diastolic 2021-05-08 00:00:00 82 mm[Hg] [facility] Height 2021-05-08 00:00:00 74 [in_i] [facility] BMI (Body Mass Index) 2021-05-08 00:00:00 41.1 kg/m2 [facility] BP Systolic 2021-05-08 00:00:00 124 mm[Hg] [facility] Body Weight 2021-05-08 00:00:00 5120 [oz_av] [facility] Procedures Procedure Date / Time Performed Performing Clinicia n Source Procedure on Hand [facility] Repair of Testis [facility] Repair of Ankle [facility] Knee Surgery [facility] Encounters Start Date/Time End Date/Time Encounter Type Admission Type Attending Clinicians Care Facility Care Department Encounter ID Source 2021-05-12 08:40:00 2021-05-12 08:40:00 Outpatient ERICKSON_R [facility] [id number] [facility] 2021-05-09 09:40:00 2021-05-09 09:40:00 Outpatient ERISNDY_R [facility] [id number] [facility] 2021-05-08 06:02:00 2021-05-08 06:02:00 Outpatient NITASINDY_R [facility] [id number] [facility] 2021-05-08 00:00:00 2021-05-08 00:00:00 Werner Zavaleta, DO: [address], [place] [address] , Ph. [facility], DR. ZAVALETA [id number] [facility] 2021-05-08 00:00:00 2021-05-08 00:00:00 Outpatient Werner Zavaleta [facility] [id number]
--- NOTE | 2023-04-18 20:20 | EDPHYS ---
Physician Documentation [facility] Name: Dennis Keating Age: 48 yrs Sex: Male : 1975 Arrival Date: 04/18/2023 Time: 18:31 Bed IW6 Private MD: ED Physician oJse John HPI: 04/18 20:43 This 48 yrs old Male presents to ER via Ambulatory with complaints of Abscess, Flu kb Symptoms. 20:43 Patient is a 48-year-old male with COPD who presents for cough, headache, congestion kb and shortness of breath for 18 days. States has been seen here 3 times for this, has taken 2 courses of antibiotics and multiple rounds of steroids but is not any better. Also reports a dental abscess that started 6 days ago.. Historical: - Allergies: 18:54 Aspirin; tl4 18:54 Cipro PO; tl4 18:54 Ibuprofen; tl4 18:54 PENICILLINS; tl4 18:54 Toradol; tl4 - PMHx: 18:54 Back pain; Chronic obstructive lung disease; CHRONS; Diverticulitis; Myocardial tl4 infarction; - PSHx: 18:54 Ankle; bowel resection; foot; knee; hand; testicle; tl4 - Immunization history:: Adult Immunizations unknown. ROS: 20:39 Constitutional: Negative for fever, chills, and weight loss, kb 20:39 ENT: Positive for dental pain, sinus congestion, 20:39 Respiratory: Positive for cough, 20:39 All other systems are negative, Exam: 20:42 Constitutional: This is a well developed, well nourished patient who is awake, alert, kb and in no acute distress. Head/Face: Normocephalic, atraumatic. Cardiovascular: Regular rate Abdomen/GI: Soft, non-tender. No distention Skin: Warm, dry with normal turgor. Normal color. MS/ Extremity: Pulses equal, no cyanosis. Neurovascular intact. Full, normal range of motion. Neuro: Awake and alert, GCS 15, oriented to person, place, time, and situation. Moves all extremities. Normal gait. 20:42 ENT: Dental exam: abscess, that is mild, specifically in the lower left first molar (#19), 20:42 Cardiovascular: Edema: pedal edema, 20:42 Respiratory: the patient does not display signs of respiratory distress, Respirations: normal, Breath sounds: wheezing: expiratory that is mild, is scattered, Vital Signs: 18:53 BP 150 / 97; Pulse 96; Resp 20; Temp 98.2(TE); Pulse Ox 99% on R/A; Weight 157.8 kg tl4 (M); Height 6 ft. 3 in. ; Pain 8/10; 18:53 Body Mass Index 43.48 (157.80 kg, 190.5 cm) tl4 18:53 Pain Scale: Adult tl4 MDM: 18:40 Patient medically screened. kb 20:38 Differential diagnosis: COPD exacerbation, pneumonia, dental abscess, CHF exacerbation. kb Data reviewed: vital signs, nurses notes. ED course: Patient elected to leave from the lobby after evaluation, prior to diagnostic testing.. 04/18 18:58 Order name: EKG; Complete Time: 18:59 04/18 18:58 Order name: Cardiac monitoring 04/18 18:58 Order name: EKG - Nurse/Tech 04/18 18:58 Order name: IV Saline Lock 04/18 18:58 Order name: Labs collected and sent 04/18 18:58 Order name: O2 Per Protocol 04/18 18:58 Order name: O2 Sat Monitoring kb Administered Medications: No medications were administered Disposition: 04/19 08:57 Co-signature as Attending Physician, Jose John MD I reviewed the patient's care rn provided by the Advanced Practice Provider and agree with the diagnosis and treatment plan. Disposition Summary: 04/18/23 20:19 Discharge Ordered Notes: Location: Home kb Condition: Stable kb Diagnosis - COPD/ Chronic obstructive pulmonary disease with (acute) exacerbation kb - Periapical abscess without sinus kb Followup: kb - With: Emergency Department - When: As needed - Reason: Worsening of condition Followup: kb - With: Private Physician - When: 2 - 3 days - Reason: Recheck today's complaints, Continuance of care, Re-evaluation by your physician Discharge Instructions: - Discharge Summary Sheet kb - Chronic Obstructive Pulmonary Disease Exacerbation kb - Dental Abscess, Xief-qa-Ceys kb Forms: - Medication Reconciliation Form kb - Thank You Letter kb - Antibiotic Education kb - Prescription Opioid Use kb - Patient Portal Instructions kb - Leadership Thank You Letter kb Signatures: Dispatcher [employer] EDKaren Rivera FNP-C FNP-Ckb Jose John MD MD rn Logdahl, Jamir tl4
--- NOTE | 2023-04-18 20:20 | ER ---
Nurse's Notes [facility] Name: Dennis Keating Age: 48 yrs Sex: Male : 1975 Arrival Date: 04/18/2023 Time: 18:31 Bed IW6 Private MD: Diagnosis: COPD/ Chronic obstructive pulmonary disease with (acute) exacerbation;Periapical abscess without sinus Presentation: 04/18 18:53 Chief complaint: Patient states: Pt c/o left side dental abscess x 1 week. Pt also c/o tl4 COPD. Ebola Screen: Patient negative for fever greater than or equal to 101.5 degrees Fahrenheit, and additional compatible Ebola Virus Disease symptoms Patient denies exposure to infectious person. Patient denies travel to an Ebola-affected area in the 21 days before illness onset. No symptoms or risks identified at this time. Initial Sepsis Screen: Does the patient meet any 2 criteria? No. Patient's initial sepsis screen is negative. Does the patient have a suspected source of infection? No. Patient's initial sepsis screen is negative. Risk Assessment: Do you want to hurt yourself or someone else? Patient reports no desire to harm self or others. Onset of symptoms was April 11, 2023. 18:53 Method Of Arrival: Ambulatory tl4 18:53 Acuity: AMNA 3 tl4 18:53 Coronavirus screen: Vaccine status: Patient reports receiving the 2nd dose of the covid tl4 vaccine. chills, congestion, cough unrelated to allergies, diarrhea, difficulty breathing, fatigue, fever, headache, muscle pain, nausea, runny nose, shortness of breath, sore throat. Triage Assessment: 19:00 General: Appears distressed, Behavior is calm, cooperative. Pain: Complains of pain in tl4 face Pain currently is 8 out of 10 on a pain scale. Historical: - Allergies: 18:54 Aspirin; tl4 18:54 Cipro PO; tl4 18:54 Ibuprofen; tl4 18:54 PENICILLINS; tl4 18:54 Toradol; tl4 - PMHx: 18:54 Back pain; Chronic obstructive lung disease; CHRONS; Diverticulitis; Myocardial tl4 infarction; - PSHx: 18:54 Ankle; bowel resection; foot; knee; hand; testicle; tl4 - Immunization history:: Adult Immunizations unknown. Screenin:22 [facility] ED Fall Risk Assessment (Adult) History of falling in the last 3 months, bp including since admission No falls in past 3 months (0 pts). Abuse screen: Denies threats or abuse. Denies injuries from another. Nutritional screening: No deficits noted. Tuberculosis screening: No symptoms or risk factors identified. Vital Signs: 18:53 BP 150 / 97; Pulse 96; Resp 20; Temp 98.2(TE); Pulse Ox 99% on R/A; Weight 157.8 kg tl4 (M); Height 6 ft. 3 in. ; Pain 8/10; 18:53 Body Mass Index 43.48 (157.80 kg, 190.5 cm) tl4 18:53 Pain Scale: Adult tl4 ED Course: 18:32 Patient arrived in ED. rg4 18:40 Karen Sheppard [facility]-C [facility] kb 18:40 Jose John MD is Attending Physician. kb 18:54 Triage completed. tl4 19:00 Arm band placed on right wrist. tl4 20:22 Junior Rios, ARAMIS is Primary Nurse. bp 20:22 Patient has correct armband on for positive identification. bp 20:22 No provider procedures requiring assistance completed. Patient did not have IV access bp during this emergency room visit. Administered Medications: No medications were administered Outcome: 20:19 Discharge ordered by MD. kb 20:22 Discharged to home ambulatory, bp 20:22 Condition: stable 20:22 Discharge instructions given to patient, Instructed on discharge instructions, follow up and referral plans. Demonstrated understanding of instructions, follow-up care, 20:22 Patient left the ED. bp Signatures: Karen Sheppard FNP-C FNP-Sally Snider rg4 Junior Rios, RN RN bp Logdashanae, Jamir tl4 Corrections: (The following items were deleted from the chart) 19:00 18:53 BP 150 / 97; tl4 tl4
[2023-04-18 20:43] VITALS: BP 150/97; TEMP 98.2; O2SAT 99
== END ==
LOC: ER 18:31
DX: J44.1 Chronic obstructive pulmonary disease with (acute) exacerbation (principal); K04.7 Periapical abscess without sinus; Z88.0 Allergy status to penicillin; Z88.1 Allergy status to other antibiotic agents; Z88.5 Allergy status to narcotic agent; Z88.6 Allergy status to analgesic agent
CPT/HCPCS: 99282

== ENCOUNTER → 2023-04-26 | Emergency (ER) | payer OTHER ==
[~2023-04-26] MED LIST changes: -HYDROCODONE/CHLORPHEN 5 ML/OSYR ONE; -MORPHINE 4 MG/ML SYR ONE; -ONDANSETRON 4 MG/2 ML VIAL ONE
--- OUTSIDE RECORDS SUMMARY | 2023-04-26 15:29 | XMS REPORT | Continuity of Care Document ---
Author Name Unknown Address [address] [facility] [address] [place] [address] [facility] thconnect Address 1200 [facility]. [address] [place] [address] Care Team Providers Care Screening Tech Name Role Phone ADALBERTO Attending Clinician Unavailable Werner Zavaleta Attending Clinician [phone] ADALBERTO Admitting Clinician Unavailable Payers Payer Name Policy Type Policy Number Effective Date Expirati on Date Source [facility] (MEDICARE REPLACEMENT/ADVANTAGE - PPO) [id number] Problems Condition Name Condition Details Condition Category Status Onset Date Resolution Date Last Treatment Date Treating Clinician Comments Source Bipolar disorder Bipolar Disorder Problem Active 05-08 00:00: 00 [facility] Depressive disorder Depressive Disorder Problem Active 05-08 00:00: 00 [facility] Attention deficit hyperactiv ity disorder Attention Deficit Hyperactiv ity Disorder Problem Active 05-08 00:00: 00 [facility] Hypertensi ve disorder Hypertensi ve Disorder Problem Active 05-08 00:00: 00 [facility] Chronic obstructiv e lung disease Chronic Obstructiv e Lung Disease Problem Active 05-08 00:00: 00 [facility] Crohn's disease Crohn's Disease Problem Active 05-08 00:00: 00 [facility] Diverticul itis Diverticul itis Problem Active 05-08 00:00: 00 [facility] Osteoarthr itis Osteoarthr itis Problem Active 05-08 00:00: 00 [facility] History of intravenou s drug abuse History of Intravenou s Drug Abuse Problem Active 05-08 00:00: 00 [facility] Allergies, Adverse Reactions, Alerts Allergy Name Allergy Type Status Severity Reaction(s) Onset Date Inactive Date Treating Clinician Comments Source TORADOL Allergy to substanc e Active Nausea [facility] Aspirin Allergy to substanc e Active Nausea [facility] Ibuprofe n Allergy to substanc e Active Nausea [facility] PENICILL INS Allergy to substanc e Active Hives [facility] Medications Ordered Medication Name Filled Medication Name [...] for nebulizati on Take [address] [facility] albuterol sulfate HFA 90 mcg/actuati on aerosol inhaler 2 puffs Q4-6 hrs albuterol sulfate HFA 90 mcg/actuati on aerosol inhaler 2 puffs Q4-6 hrs No albuterol sulfate HFA 90 mcg/actuat ion aerosol inhaler 2 puffs Q4-[address] [facility] alprazolam 1 mg tablet TAKE ONE (1) TABLET(S) BY MOUTH ONCE A DAY NEEDED. alprazolam 1 mg tablet TAKE ONE (1) TABLET(S) BY MOUTH ONCE A DAY NEEDED. No alprazolam 1 mg tablet TAKE ONE (1) TABLET(S) BY MOUTH ONCE A DAY NEEDED. [facility] clindamycin HCl 300 mg capsule TAKE 1 CAPSULE BY MOUTH FOUR TIMES DAILY clindamycin HCl 300 mg capsule TAKE 1 CAPSULE BY MOUTH FOUR TIMES DAILY No clindamyci n HCl 300 mg capsule TAKE 1 CAPSULE BY MOUTH FOUR TIMES DAILY [facility] dextroamphe tamine-amph etamine 20 mg tablet TAKE ONE (1) TABLET(S) BY MOUTH EVERY MORNING. dextroamphe tamine-amph etamine 20 mg tablet TAKE ONE (1) TABLET(S) BY MOUTH EVERY MORNING. No dextroamph etamine-am phetamine 20 mg tablet TAKE ONE (1) TABLET(S) BY MOUTH EVERY MORNING. [facility] prednisone 20 mg tablet TAKE 1 TABLET BY MOUTH DAILY. prednisone 20 mg tablet TAKE 1 TABLET BY MOUTH DAILY. No prednisone 20 mg tablet TAKE 1 TABLET BY MOUTH DAILY. [facility] Vital Signs Vital Name Observation Time Observation Value Comments S ource BP Diastolic 2021-05-08 00:00:00 82 mm[Hg] [facility] Height 2021-05-08 00:00:00 74 [in_i] [facility] BMI (Body Mass Index) 2021-05-08 00:00:00 41.1 kg/m2 [facility] BP Systolic 2021-05-08 00:00:00 124 mm[Hg] [facility] Body Weight 2021-05-08 00:00:00 5120 [oz_av] [facility] Procedures Procedure Date / Time Performed Performing Clinicia n Source Procedure on Hand [facility] Repair of Testis [facility] Repair of Ankle [facility] Knee Surgery [facility] Encounters Start Date/Time End Date/Time Encounter Type Admission Type Attending Clinicians Care Facility Care Department Encounter ID Source 2021-05-12 08:40:00 2021-05-12 08:40:00 Outpatient ERICKSON_R [facility] [id number] [facility] 2021-05-09 09:40:00 2021-05-09 09:40:00 Outpatient ERSINDY_R [facility] [id number] [facility] 2021-05-08 06:02:00 2021-05-08 06:02:00 Outpatient NITASINDY_R [facility] [id number] [facility] 2021-05-08 00:00:00 2021-05-08 00:00:00 Werner Zavaleta, DO: [address], [place] [address] , Ph. [facility], DR. ZAVALETA [id number] [facility] 2021-05-08 00:00:00 2021-05-08 00:00:00 Outpatient Werner Zavaleta [facility] [id number]
--- NOTE | 2023-04-26 17:33 | EDPHYS ---
Physician Documentation [facility] Name: Dennis Keating Age: 48 yrs Sex: Male : 1975 Arrival Date: 04/26/2023 Time: 15:26 Bed DX5 Private MD: Freya Moreno ED Physician Isabel Caraballo HPI: 04/26 16:19 This 48 yrs old Male presents to ER via Wheelchair with complaints of COPD gb1 Exacerbation. 16:19 48-year-old male here with shortness of breath as he feels like he has had gb1 cough cold symptoms for the last week. He has been here 4-5 times in that time. Due to shortness of breath. He does have a history of COPD and he stopped smoking 1 week ago. The patient denies any chest pain. He feels like his been using his inhaler more and the prednisone that he was on is not helping as much since he is tapered off of it. He took his last prednisone yesterday. He has no other medical problems but he states that he did have a history of diverticulitis that resulted in a partial colectomy a few years back.. Historical: - Allergies: 15:37 Aspirin; bp 15:37 Cipro PO; bp 15:37 Ibuprofen; bp 15:37 PENICILLINS; bp 15:37 Toradol; bp - PMHx: 15:37 Back pain; Chronic obstructive lung disease; CHRONS; Diverticulitis; Myocardial bp infarction; - PSHx: 15:37 Ankle; bowel resection; foot; hand; knee; testicle; bp - Immunization history:: Adult Immunizations up to date. - Social history:: Smoking status: unknown. ROS: 16:19 Respiratory: Positive for shortness of breath, gb1 16:19 All other systems are negative, Exam: 16:19 Constitutional: This is a well developed, well nourished patient who is awake, alert, gb1 and in no acute distress. Head/Face: Normocephalic, atraumatic. Eyes: Pupils equal round and reactive to light, extra-ocular motions intact. Lids and lashes normal. Conjunctiva and sclera are non-icteric and not injected. Cornea within normal limits. Periorbital areas with no swelling, redness, or edema. ENT: Nares patent. No nasal discharge, no septal abnormalities noted. Tympanic membranes are normal and external auditory canals are clear. Oropharynx with no redness, swelling, or masses, exudates, or evidence of obstruction, uvula midline. Mucous membranes moist. Chest/axilla: Normal chest wall appearance and motion. Nontender with no deformity. No lesions are appreciated. Cardiovascular: Regular rate and rhythm with a normal S1 and S2. No gallops, murmurs, or rubs. Normal PMI, no JVD. No pulse deficits. Abdomen/GI: Soft, non-tender, with normal bowel sounds. No distension or tympany. No guarding or rebound. No evidence of tenderness throughout. Back: No spinal tenderness. No costovertebral tenderness. Full range of motion. Skin: Warm, dry with normal turgor. Normal color with no rashes, no lesions, and no evidence of cellulitis. MS/ Extremity: Pulses equal, no cyanosis. Neurovascular intact. Full, normal range of motion. Psych: Awake, alert, with orientation to person, place and time. Behavior, mood, and affect are within normal limits. 16:19 Respiratory: Breath sounds: wheezing: expiratory that is mild, is mildly improved, Vital Signs: 15:35 BP 137 / 66; Pulse 99; Resp 16; Temp 98; Pulse Ox 98% ; bp MDM: 15:36 Patient medically screened. gb1 16:19 Differential diagnosis: asthma, Bronchitis Chronic Obstructive Pulmonary Disease gb1 Myocardial Infarction Pneumothorax pulmonary edema, Pulmonary Embolism reactive airway disease. 16:22 Data reviewed: nurses notes. ED course: 48-year-old male appears clinically improved gb1 since arrival from home to the ER. Patient is not having any acute retractions or difficulty breathing. Respirate is 16 afebrile satting at 98% on room air with a blood pressure 137/66 patient at this point is requesting a DuoNeb which I am not against or necessarily believing that he needs in the emergency department but I will represcribe it. The patient otherwise is not an extremis and I doubt pneumonia, CHF exacerbation or pulmonary edema. This is likely a very mild COPD exacerbation secondary to bronchitis which is likely virally mediated.. 17:30 Independent interpretation of the following test(s) in the Emergency Department X-Ray: gb1 My interpretation is I [facility] the [facility] which shows viral mediated process consistent with bronchitis secondary to URI. I do not see any focal infiltrates or cardiomegaly.. CXR XRAY Ordered. 17:34 Response to treatment: the patient's symptoms have markedly improved after treatment. gb1 Special discussion: I discussed with the patient/guardian in detail that at this point there is no indication for admission to the hospital. It is understood, however, that if the symptoms persist or worsen the patient needs to return immediately for re-evaluation. Patient saw his primary care doctor on Wednesday and she called them and inhaled steroid along with some of the medications to treat his COPD exacerbation. The patient did not pick any medications at the pharmacy but I have instructed him to do so. He does not at this time he any more prednisone tablets. I recommend the inhaled albuterol as well as the inhaled Symbicort as prescribed by his primary care doctor.. 04/26 16:58 Order name: CXR XRAY gb1 Administered Medications: 16:42 Drug: MethylPrednisoLONE IVP 125 mg IVP once Route: IVP; Site: left hand; iw 16:42 Drug: DuoNeb Nebulize (3:1) (2.5 mg - 0.5 mg) 3 ml Nebulizer once Route: Nebulizer; iw Disposition: 17:36 Chart complete. gb1 Disposition Summary: 04/26/23 17:32 Discharge Ordered Notes: Location: Home gb1 Condition: Stable gb1 Diagnosis - COPD/ Chronic obstructive pulmonary disease with (acute) exacerbation gb1 - Acute bronchitis, unspecified gb1 Followup: gb1 - With: Freya Moreno - When: 48 Hours - Reason: Re-evaluation by your physician Discharge Instructions: - Discharge Summary Sheet gb1 - Acute Bronchitis, Adult gb1 - Viral Respiratory Infection gb1 Forms: - Work release form iw - Medication Reconciliation Form gb1 - Thank You Letter gb1 - Antibiotic Education gb1 - Prescription Opioid Use gb1 - Patient Portal Instructions gb1 - Leadership Thank You Letter gb1 Signatures: Dispatcher [employer] EDRissa Wilder, Junior Quintero RN, RN RN bp Isabel Caraballo MD MD gb1 Corrections: (The following items were deleted from the chart) 17:31 16:58 Chest Single View+[email or web address] ordered. EDMS gb1
--- NOTE | 2023-04-26 17:33 | ER ---
Nurse's Notes [facility] Name: Dennis Keating Age: 48 yrs Sex: Male : 1975 Arrival Date: 04/26/2023 Time: 15:26 Bed DX5 Private MD: Freya Moreno Diagnosis: COPD/ Chronic obstructive pulmonary disease with (acute) exacerbation;Acute bronchitis, unspecified Presentation: 04/26 15:35 Chief complaint: Patient states: SOB, H/O COPD. Coronavirus screen: At this time, the bp client does not indicate any symptoms associated with coronavirus-19. Ebola Screen: No symptoms or risks identified at this time. Initial Sepsis Screen: Does the patient meet any 2 criteria? No. Patient's initial sepsis screen is negative. Does the patient have a suspected source of infection? No. Patient's initial sepsis screen is negative. Risk Assessment: Do you want to hurt yourself or someone else? Patient reports no desire to harm self or others. Onset of symptoms is unknown. 15:35 Method Of Arrival: Wheelchair bp 15:35 Acuity: AMNA 3 bp Historical: - Allergies: 15:37 Aspirin; bp 15:37 Cipro PO; bp 15:37 Ibuprofen; bp 15:37 PENICILLINS; bp 15:37 Toradol; bp - PMHx: 15:37 Back pain; Chronic obstructive lung disease; CHRONS; Diverticulitis; Myocardial bp infarction; - PSHx: 15:37 Ankle; bowel resection; foot; hand; knee; testicle; bp - Immunization history:: Adult Immunizations up to date. - Social history:: Smoking status: unknown. Vital Signs: 15:35 BP 137 / 66; Pulse 99; Resp 16; Temp 98; Pulse Ox 98% ; bp ED Course: 15:27 Patient arrived in ED. as 15:30 Freya Moreno is Private Physician. as 15:36 Isabel Caraballo MD is Attending Physician. gb1 15:37 Triage completed. bp 15:37 Arm band placed on. bp 16:27 Rissa Graham, RN is Primary Nurse. iw 17:32 Freya Moreno is Referral Physician. gb1 17:35 CXR XRAY In Process Unspecified. EDMS Administered Medications: 16:42 Drug: MethylPrednisoLONE IVP 125 mg IVP once Route: IVP; Site: left hand; iw 16:42 Drug: DuoNeb Nebulize (3:1) (2.5 mg - 0.5 mg) 3 ml Nebulizer once Route: Nebulizer; iw Outcome: 17:32 Discharge ordered by . mark 17:56 Patient left the ED. iw Signatures: Dispatcher [employer] Padmini Mar Irene, RN RN iw Junior Rios RN RN bp Isabel Caraballo MD MD gb1
--- NOTE | 2023-04-26 18:07 | RAD REPORT ---
EXAM DESCRIPTION: RADChest Single View04/26/2023 5:33 pm CLINICAL HISTORY: Cough;COPD COMPARISON: Chest Single View dated 04/13/2023; Chest Single View dated 04/09/2023; Chest Single Vie w dated 04/07/2023; Chest Single View dated 01/01/2016; Abdomen Pelvis Wo Contrast dated 12/27/2022 TECHNIQUE: Portable AP view of the chest. FINDINGS: The lungs are clear. No pneumothorax or effusion. The cardiomediastinal contours are unre markable. Left eighth and ninth rib deformities, suggestive of remote fractures. IMPRESSION: No acute cardiopulmonary process.
[2023-04-26 20:08] VITALS: BP 137/66; TEMP 98; O2SAT 98
== END ==
LOC: ER 15:26
DX: J44.1 Chronic obstructive pulmonary disease with (acute) exacerbation (principal); J20.9 Acute bronchitis, unspecified; J44.0 Chronic obstructive pulmonary disease with (acute) lower respiratory infection; Z88.0 Allergy status to penicillin; Z88.1 Allergy status to other antibiotic agents; Z88.5 Allergy status to narcotic agent; Z88.6 Allergy status to analgesic agent
CPT/HCPCS: 71045; 94640; 96374; 99284; J7613; J7644; J2930

== ENCOUNTER → 2023-05-10 | Emergency (ER) | payer OTHER ==
[~2023-05-10] MED LIST changes: -METHYLPREDNISOLONE 125 MG INJ ONE; +MORPHINE 4 MG/ML SYR ONE; +ONDANSETRON 4 MG/2 ML VIAL ONE; +methocarbamoL 750 MG TAB ONE; +predniSONE 20 MG TAB ONE
--- OUTSIDE RECORDS SUMMARY | 2023-05-10 20:42 | XMS REPORT | Continuity of Care Document ---
Author Name Unknown Address [address] [facility] [place] [address] [facility] Address [address] [facility] [address] [place] [address] Care Team Providers Care Bacteriologist Industrial Name Role Phone MARGUERITE TONI Primary Care Physician Unavailab EVA Puckett Attending Clinician Unavailable Eva Ramirez MD Attending Clinician [phone] Doctor Unassigned, [place] Attending Clinician U Kane Rabago MD Attending Clinician [phone] KANE HUFFMAN Attending Clinician UnavailALBER De Los Santos Attending Clinician UnavailANA Jang Attending Clinician Unavailable LESTER ARTEAGA Attending Clinician Unavailasa GLOVER Attending Clinician Unavailable Werner Zavaleta Attending Clinician [phone] EVA RAMIREZ Admitting Clinician Unavailable BEHZADI, KANE A Admitting Clinician Unavailabl e WAQAR_R Admitting Clinician Unavailable Payers Payer Name Policy Type Policy Number Effective Date Expirati on Date Source ANNETTE OLSON PLS O [id number] 00:00:00 [employer] MC[employer] ADV CHOICE PPO [id number] 2021 00:00:00 [facility] (MEDICARE REPLACEMENT/[employer]V[place] GE - PPO) [id number] Problems Condition Name Condition Details Condition Category Status Onset Date Resolution Date Last Treatment Date Treating Clinician Comments Source Bipolar disorder Bipolar Disorder Problem Active 05-08 00:00: 00 [facility] Depressive disorder Depressive Disorder Problem Active 05-08 00:00: 00 [facility] Attention deficit hyperactiv ity disorder Attention Deficit Hyperactiv ity Disorder Problem Active 05[facility]08 [facility] Hypertensi ve disorder Hypertensi ve Disorder Problem Active 05-08 00:00: 00 [facility] Chronic obstructiv e lung disease Chronic Obstructiv e Lung Disease Problem Active 05-08 00:00: 00 [facility] Crohn's disease Crohn's Disease Problem Active 05-08 00:00: 00 [facility] Diverticul itis Diverticul itis Problem Active 05-08 00:00: 00 [facility] Osteoarthr itis Osteoarthr itis Problem Active 05-08 00:00: 00 [facility] History of intravenou s drug abuse History of Intravenou s Drug Abuse Problem Active 05-08 00:00: 00 [facility] No known active problems No known active problems Disease [facility] Allergies, Adverse Reactions, Alerts Allergy Name Allergy Type Status Severity Reaction(s) Onset Date Inactive Date Treating Clinician Comments Source Ciproflo xacin Propensi ty to adverse reaction s Active Other - See comments 07-24 00:00: 00 [facility] CIPROFLO XACIN DRUG INGREDI Active Other-Cmnt 07 00:00: 00 [facility] Aspirin Propensi ty to adverse reaction s Active Rash 2014-04 0 00:00: 00 [facility] Ibuprofe n Propensi ty to adverse reaction s Active Rash 2014-04 0 00:00: 00 [facility] Penicill in Propensi ty to adverse reaction s Active Unknown - See comments 2014-04 0 00:00: 00 [facility] Ketorola c Propensi ty to adverse reaction s Active Unknown - See comments 2014-04 0 00:00: 00 [facility] ASPIRIN DRUG INGREDI Active Rash 2014-04 0 00:00: 00 [facility] IBUPROFE N DRUG INGREDI Active Rash 2014-04 0 00:00: 00 [facility] PENICILL IN DRUG INGREDI Active Unknown-Cmnt 2014-04 0 00:00: 00 [facility] KETOROLA C DRUG INGREDI Active Unknown-Cmnt 2014-04 0 00:00: 00 [facility] TORADOL Allergy to substanc e Active Nausea [facility] Aspirin Allergy to substanc e Active Nausea [facility] Ibuprofe n Allergy to substanc e Active Nausea [facility] PENICILL INS Allergy to substanc e Active Hives [facility] Social History Social Habit Start Date Stop Date Quantity Comments Source Gender identity [facility] Exposure to SARS-CoV-2 (event) Not sure [facility] History of tobacco use Cigarette Smoker [facility] History of Social function 2018-10-27 00:00:00 2018-10-27 00:00:00 [facility] Cigarette pack-years 2018-07-11 00:00:00 2018-07-11 00:00:00 [facility] Tobacco use and exposure 2018-07-11 00:00:00 2018-07-11 00:00:00 User of smokeless tobacco [facility] Cigarettes smoked current (pack per day) - Reported 2018-07-11 00:00:00 2018-07-11 00:00:00 [facility] Sex Assigned At 1975 00:00:1975 00:00:00 [facility] Smoking Status Start Date Stop Date Source Smokes tobacco daily 2018-07-11 00:00:00 [facility] Medications Ordered Medication Name Filled Medication Name Start Date Stop Date Current Medication? Ordering Clinician Indication Dosage Frequency Signature (SIG) Comments Components Source HYDROcodone -acetaminop hen (NORCO) 10-325 mg tablet 1 tablet 2022-04 12:15: 00 04-15 11:15 :00 No 1{tbl} 1 tablet, Oral, ONCE NOW, 1 dose, On Yolanda 04/15/23 at 0615, Routine [facility] magnesium sulfate in water 2 gram/50 mL (4 %) infusion 2 g 2022-04 12:00: 00 04-15 23:59 :00 Yes 2g 2 g, IV Piggyback, Administer over 60 Minutes, ONCE, 1 dose, On Yolanda 04/15/23 at 0600, Routine [facility] ipratropium -albuteroL (DUONEB) 0.5 mg-3 mg(2.5 mg base)/3 mL nebulizer solution 3 mL 2022-04 11:15: 00 Yes 3mL 3 mL, Inhalation , QID, First dose on Wed04/15/23 at 0515, Until Discontinu ed, Routine [facility] ipratropium -albuteroL (DUONEB) 0.5 mg-3 mg(2.5 mg base)/3 mL nebulizer solution 3 mL 2022-04 10:30: 00 04-15 09:40 :00 No 3mL 3 mL, Inhalation , ONCE, 1 dose, On Wed04/15/23 at 0430, Routine [facility] methylpredn isolone sod succ (SOLU-MEDRO L) injection 125 mg 2022-04 10:30: 00 04-15 09:34 :00 No 125mg 125 mg, Intravenou s, ONCE, 1 dose, On Wed04/15/23 at 0430, 2 mL [facility] cyclobenzap rine 10 mg tablet 2022-04 05:28: 16 04-15 00:00 :00 No cyclobenza yann 10 mg tablet Take 1 tablet twice a day by oral route as directed for 28 days. [facility] albuterol 90 mcg/actuati on inhaler 2022-04 00:00: 00 Yes [id number] 2{puff} Inhale 2 Puffs every 4 (four) hours as needed for Wheezing or Shortness of Breath. [facility] predniSONE 20 mg tablet 2022-04 00:00: 00 Yes [id number] TAKE ONE TABLET ORALLY TWICE A DAY FOR FIVE DAYS [facility] albuterol 2.5 mg /3 mL (0.083 %) nebulizer solution 2022-04 00:00: 00 Yes [id number] 2.5mg Inhale 3 mL every 6 (six) hours as needed for Wheezing, Shortness of Breath, Bronchospa sm or Chest tightness. May also nebulize one extra every 6 hours. [facility] codeine-gua ifenesin 10-100 mg/5 mL oral solution 2022-04 00:00: 00 04-23 05:59 :00 Yes 10mL Take 10 mL by mouth every 6 (six) hours as needed for Cough for up to 7 days. Indication s: COUGH [facility] methocarbam oL (ROBAXIN) injection 1,000 mg 11-22 03:00: 00 Yes 1000mg 1,000 mg, Intravenou s, Q8H, First dose on 11/21/22 at 2200, Until Discontinu ed, Routine [facility] HYDROmorpho ne (DILAUDID) injection 1 mg 11-21 20:45: 00 11-21 22:14 :00 No 1mg 1 mg, Slow IV Push, ONCE, 1 dose, On 11/21/22 at 1545, SAM
Us e approved by (Faculty): ADC PROVIDER [facility] acetaminoph en ADULT (OFIRMEV) injection 1,000 mg 11-21 20:00: 00 11-21 20:02 :00 No 1000mg 1,000 mg, IV Infusion, at 400 mL/hr Administer over 15 Minutes, ONCE, 1 dose, On 11/21/22 at 1500, Routine
Indicatio n: Non-periop erative Patient
Approved by: Per Policy (NPO Status) [facility] morpHINE (4 mg/mL) injection 4 mg 11-21 20:00: 00 11-21 19:44 :00 No 4mg 4 mg, Slow IV Push, ONCE, 1 dose, On 11/21/22 at 1500, SAM [facility] cyclobenzap rine 10 mg tablet 11-21 17:05: 02 Yes cyclobenza yann 10 mg tablet Take 1 tablet twice a day by oral route as directed for 28 days. [facility] cyclobenzap rine 10 mg tablet 11-21 17:05: 02 Yes cyclobenza yann 10 mg tablet Take 1 tablet twice a day by oral route as directed for 28 days. [facility] acetaminoph en-codeine 300-30 mg tablet 11-21 00:00: 00 Yes [id number] 1{tbl} Take 1 tablet by mouth every 6 (six) hours as needed for Pain (scale 4-6) for up to 15 doses. Indication s: acute pain [facility] acetaminoph en-codeine 300-30 mg tablet 11-21 00:00: 00 Yes [id number] 1{tbl} Take 1 tablet by mouth every 6 (six) hours as needed for Pain (scale 4-6) for up to 15 doses. Indication s: acute pain [facility] acetaminoph en-codeine 300-30 mg tablet 11-21 00:00: 00 Yes [id number] 1{tbl} Take 1 tablet by mouth every 6 (six) hours as needed for Pain (scale 4-6) for up to 15 doses. Indication s: acute pain [facility] cyclobenzap rine 10 mg tablet 2023-0 8-05 00:00: 00 11-27 04:59 :00 No [id number] 10mg Take 1 tablet by mouth in the morning and 1 tablet at noon and 1 tablet in the evening. Do all this for 5 days. [facility] clindamycin in 5 % dextrose (CLEOCIN) 900 mg/50 mL IV piggyback RTU 900 mg 2020-04 06:15: 00 02-13 05:51 :00 No 900mg 900 mg, IV Piggyback, ONCE, 1 dose, On Wed02/13/21 at 0115, Administer over 30 Minutes, 50 mL
Reas on for Anti-Infec tive: Documented Infection< br>Documen sangeetha Infection Site: Skin / Soft Tissue
Duration of Therapy: Other (see Comments)< br>Restric sangeetha use approved by: ADC PROVIDER [facility] FENTanyl PF (SUBLIMAZE (PF)) injection 50 mcg 2020-04 05:15: 00 02-13 04:10 :00 No 50ug 50 mcg, Slow IV Push, ONCE, 1 dose, On Wed02/13/21 at 0015, Routine [facility] FENTanyl PF (SUBLIMAZE (PF)) injection 50 mcg 2020-04 04:39: 00 02-13 04:45 :00 No 50ug 50 mcg, Slow IV Push, ONCE, 1 dose, On Wed02/12/21 at 2345, STAT [facility] clindamycin 300 mg capsule 2020-04 00:00: 00 Yes [id number] 300mg Take 1 capsule by mouth 4 (four) times daily. [facility] gabapentin 300 mg capsule 2020-04 00:00: 00 Yes [id number] 300mg Take 1 capsule by mouth 3 (three) times daily. [facility] clindamycin 300 mg capsule 2020-04 00:00: 00 Yes [id number] 300mg Take 1 capsule by mouth 4 (four) times daily. [facility] gabapentin 300 mg capsule 2020-04 00:00: 00 Yes [id number] 300mg Take 1 capsule by mouth 3 (three) times daily. [facility] clindamycin 300 mg capsule 2020-04 0 00:00: 00 Yes [id number] 300mg Take 1 capsule by mouth 4 (four) times daily. [facility] clindamycin 300 mg capsule 2020-04 0 00:00: 00 Yes [id number] 300mg Take 1 capsule by mouth 4 (four) times daily. [facility] gabapentin 300 mg capsule 2020-04 0 00:00: 00 Yes [id number] 300mg Take 1 capsule by mouth 3 (three) times daily. [facility] gabapentin 300 mg capsule 2020-04 0 00:00: 00 04-15 00:00 :00 No [id number] 300mg Take 1 capsule by mouth 3 (three) times daily. [facility] proMETHazin e 25 mg tablet 07-24 00:00: 00 Yes [id number] 25mg Take 1 tablet by mouth every 6 (six) hours as needed for Nausea and Vomiting (N/V). [facility] traMADOL (ULTRAM) 50 mg tablet 07-24 00:00: 00 Yes [id number] 50mg Take 1 tablet by mouth every 6 (six) hours as needed for Pain (scale 4-6). [facility] proMETHazin e 25 mg tablet 07-24 00:00: 00 Yes [id number] 25mg Take 1 tablet by mouth every 6 (six) hours as needed for Nausea and Vomiting (N/V). [facility] traMADOL (ULTRAM) 50 mg tablet 07-24 00:00: 00 Yes [id number] 50mg Take 1 tablet by mouth every 6 (six) hours as needed for Pain (scale 4-6). [facility] proMETHazin e 25 mg tablet 07-24 00:00: 00 Yes [id number] 25mg Take 1 tablet by mouth every 6 (six) hours as needed for Nausea and Vomiting (N/V). [facility] traMADOL (ULTRAM) 50 mg tablet 07-24 00:00: 00 Yes [id number] 50mg Take 1 tablet by mouth every 6 (six) hours as needed for Pain (scale 4-6). [facility] traMADOL (ULTRAM) 50 mg tablet 07-24 00:00: 00 Yes [id number] 50mg Take 1 tablet by mouth every 6 (six) hours as needed for Pain (scale 4-6). [facility] proMETHazin e 25 mg tablet 07-24 00:00: 00 Yes [id number] 25mg Take 1 tablet by mouth every 6 (six) hours as needed for Nausea and Vomiting (N/V). [facility] traMADOL (ULTRAM) 50 mg tablet 07-24 00:00: 00 Yes [id number] 50mg Take 1 tablet by mouth every 6 (six) hours as needed for Pain (scale 4-6). [facility] proMETHazin e 25 mg tablet 07-24 00:00: 00 04-15 00:00 :00 No [id number] 25mg Take 1 tablet by mouth every 6 (six) hours as needed for Nausea and Vomiting (N/V). [facility] meloxicam 7.5 mg tablet 07-11 09:32: 26 Yes meloxicam 7.5 mg tablet [facility] ketorolac 10 mg tablet 07-11 09:32: 26 Yes 10mg Take 10 mg by mouth. [facility] budesonide- formoterol 160-4.5 mcg/actuati on inhaler 07-11 09:32: 26 Yes Symbicort 160 mcg-4.5 mcg/actuat ion HFA aerosol inhaler [facility] meloxicam 7.5 mg tablet 07-11 09:32: 26 Yes meloxicam 7.5 mg tablet [facility] ketorolac 10 mg tablet 07-11 09:32: 26 Yes 10mg Take 10 mg by mouth. [facility] budesonide- formoterol 160-4.5 mcg/actuati on inhaler 07-11 09:32: 26 Yes Symbicort 160 mcg-4.5 mcg/actuat ion HFA aerosol inhaler [facility] cyclobenzap rine 10 mg tablet 07-11 09:32: 26 Yes cyclobenza yann 10 mg tablet Take 1 tablet twice a day by oral route as directed for 28 days. [facility] meloxicam 7.5 mg tablet 07-11 09:32: 26 Yes meloxicam 7.5 mg tablet [facility] ketorolac 10 mg tablet 07-11 09:32: 26 Yes 10mg Take 10 mg by mouth. [facility] budesonide- formoterol 160-4.5 mcg/actuati on inhaler 07-11 09:32: 26 Yes Symbicort 160 mcg-4.5 mcg/actuat ion HFA aerosol inhaler [facility] meloxicam 7.5 mg tablet 07-11 09:32: 26 Yes meloxicam 7.5 mg tablet [facility] ketorolac 10 mg tablet 07-11 09:32: 26 Yes 10mg Take 10 mg by mouth. [facility] budesonide- formoterol 160-4.5 mcg/actuati on inhaler 07-11 09:32: 26 Yes Symbicort 160 mcg-4.5 mcg/actuat ion HFA aerosol inhaler [facility] cyclobenzap rine 10 mg tablet 07-11 09:32: 26 Yes cyclobenza yann 10 mg tablet Take 1 tablet twice a day by oral route as directed for 28 days. [facility] meloxicam 7.5 mg tablet 07-11 09:32: 26 Yes meloxicam 7.5 mg tablet [facility] ketorolac 10 mg tablet 07-11 09:32: 26 Yes 10mg Take 10 mg by mouth. [facility] budesonide- formoterol 160-4.5 mcg/actuati on inhaler 07-11 09:32: 26 Yes Symbicort 160 mcg-4.5 mcg/actuat ion HFA aerosol inhaler [facility] HYDROcodone -acetaminop hen (NORCO) 10-325 mg tablet 07-11 09:22: 33 Yes 2{tbl} Take 2 Tabs by mouth daily. [facility] HYDROcodone -acetaminop hen (NORCO) 10-325 mg tablet 07-11 09:22: 33 Yes 2{tbl} Take 2 Tabs by mouth daily. [facility] HYDROcodone -acetaminop hen (NORCO) 10-325 mg tablet 07-11 09:22: 33 Yes 2{tbl} Take 2 Tabs by mouth daily. [facility] HYDROcodone -acetaminop hen (NORCO) 10-325 mg tablet 07-11 09:22: 33 Yes 2{tbl} Take 2 Tabs by mouth daily. [facility] HYDROcodone -acetaminop hen (NORCO) 10-325 mg tablet 07-11 09:22: 33 Yes 2{tbl} Take 2 Tabs by mouth daily. [facility] albuterol 90 mcg/actuati on inhaler 07-11 00:00: 00 Yes [id number] 2{puff} Inhale 2 Puffs every 6 (six) hours as needed for Wheezing or Shortness of Breath. [facility] albuterol 90 mcg/actuati on inhaler 07-11 00:00: 00 Yes [id number] 2{puff} Inhale 2 Puffs every 6 (six) hours as needed for Wheezing or Shortness of Breath. [facility] albuterol 90 mcg/actuati on inhaler 07-11 00:00: 00 Yes [id number] 2{puff} Inhale 2 Puffs every 6 (six) hours as needed for Wheezing or Shortness of Breath. [facility] albuterol 90 mcg/actuati on inhaler 07-11 00:00: 00 Yes [id number] 2{puff} Inhale 2 Puffs every 6 (six) hours as needed for Wheezing or Shortness of Breath. [facility] albuterol 90 mcg/actuati on inhaler 07-11 00:00: 00 Yes [id number] 2{puff} Inhale 2 Puffs every 6 (six) hours as needed for Wheezing or Shortness of Breath. [facility] CELECOXIB (CELEBREX ORAL) 2014-04 0 16:33: 56 Yes Take by mouth. [facility] CELECOXIB (CELEBREX ORAL) 2014-04 0 16:33: 56 Yes Take by mouth. [facility] CELECOXIB (CELEBREX ORAL) 2014-04 003 16:33: 56 Yes Take by mouth. [facility] CELECOXIB (CELEBREX ORAL) 2014-04 0 16:33: 56 Yes Take by mouth. [facility] CELECOXIB (CELEBREX ORAL) 2014-04 0 16:33: 56 Yes Take by mouth. [facility] albuterol sulfate 2.5 mg/3 mL (0.083 %) solution for nebulizatio n Take 2 vials daily albuterol sulfate 2.5 mg/3 mL (0.083 %) solution for nebulizatio n Take 2 vials daily No albuterol sulfate 2.5 mg/3 mL (0.083 %) solution for nebulizati on Take 2 vials daily [facility] albuterol sulfate HFA 90 mcg/actuati on aerosol inhaler 2 puffs Q4-6 hrs albuterol sulfate HFA 90 mcg/actuati on aerosol inhaler 2 puffs Q4-6 hrs No albuterol sulfate HFA 90 mcg/actuat ion aerosol inhaler 2 puffs Q4-6 hrs [facility] alprazolam 1 mg tablet TAKE ONE (1) TABLET(S) BY MOUTH ONCE A DAY NEEDED. alprazolam 1 mg tablet TAKE ONE (1) TABLET(S) BY MOUTH ONCE A DAY NEEDED. No alprazolam 1 mg tablet TAKE ONE (1) TABLET(S) BY MOUTH ONCE A DAY NEEDED. [facility] clindamycin HCl 300 mg capsule TAKE 1 CAPSULE BY MOUTH FOUR TIMES DAILY clindamycin HCl 300 mg capsule TAKE 1 CAPSULE BY MOUTH FOUR TIMES DAILY No clindamyci n HCl 300 mg capsule TAKE 1 CAPSULE BY MOUTH FOUR TIMES DAILY [facility] dextroamphe tamine-amph etamine 20 mg tablet TAKE ONE (1) TABLET(S) BY MOUTH EVERY MORNING. dextroamphe tamine-amph etamine 20 mg tablet TAKE ONE (1) TABLET(S) BY MOUTH EVERY MORNING. No dextroamph etamine-am phetamine 20 mg tablet TAKE ONE (1) TABLET(S) BY MOUTH EVERY MORNING. [facility] prednisone 20 mg tablet TAKE 1 TABLET BY MOUTH DAILY. prednisone 20 mg tablet TAKE 1 TABLET BY MOUTH DAILY. No prednisone 20 mg tablet TAKE 1 TABLET BY MOUTH DAILY. [facility] Vital Signs Vital Name Observation Time Observation Value Comments S ource Heart rate 2023-04-15 11:17:00 94 /min [facility] Body temperature 2023-04-15 11:17:00 36.78 Char [facility] Respiratory rate 2023-04-15 11:17:00 18 /min [facility] Oxygen saturation in Arterial blood by Pulse oximetry 2023-04-15 11:17:00 97 /min [facility] Systolic blood pressure 2023-04-15 11:07:00 130 mm[Hg] [facility] Diastolic blood pressure 2023-04-15 11:07:00 118 mm[Hg] [facility] Body height 2023-04-15 09:11:00 190.5 cm [facility] Body weight 2023-04-15 09:11:00 149.687 kg [facility] BMI 2023-04-15 09:11:00 41.25 kg/m2 [facility] Systolic blood pressure 2022-11-21 22:14:00 122 mm[Hg] [facility] Diastolic blood pressure 2022-11-21 22:14:00 82 mm[Hg] [facility] Heart rate 2022-11-21 22:14:00 76 /min [facility] Respiratory rate 2022-11-21 22:14:00 16 /min [facility] Oxygen saturation in Arterial blood by Pulse oximetry 2022-11-21 22:14:00 96 /min [facility] Body temperature 2022-11-21 18:37:00 36.83 Char [facility] Body height 2022-11-21 18:37:00 190.5 cm [facility] Body weight 2022-11-21 18:37:00 154.223 kg [facility] BMI 2022-11-21 18:37:00 42.50 kg/m2 [facility] BP Diastolic 2021-05-08 00:00:00 82 mm[Hg] [facility] Height 2021-05-08 00:00:00 74 [in_i] [facility] BMI (Body Mass Index) 2021-05-08 00:00:00 41.1 kg/m2 [facility] BP Systolic 2021-05-08 00:00:00 124 mm[Hg] [facility] Body Weight 2021-05-08 00:00:00 5120 [oz_av] [facility] Systolic blood pressure 2021-02-13 05:30:00 115 mm[Hg] [facility] Diastolic blood pressure 2021-02-13 05:30:00 83 mm[Hg] [facility] Heart rate 2021-02-13 05:30:00 78 /min [facility] Respiratory rate 2021-02-13 05:30:00 19 /min [facility] Oxygen saturation in Arterial blood by Pulse oximetry 2021-02-13 05:30:00 97 /min [facility] Body temperature 2021-02-13 03:30:00 36.94 Char [facility] Body height 2021-02-13 03:30:00 188 cm [facility] Body weight 2021-02-13 03:30:00 137.939 kg [facility] BMI 2021-02-13 03:30:00 39.04 kg/m2 [facility] Procedures Procedure Date / Time Performed Performing Clinicia n Source XR CHEST 1 VW 2023-04-15 09:40:04 Eva Ramirez [facility] TROPONIN I 2023-04-15 09:32:00 Eva Ramirez [facility] COMP. METABOLIC PANEL ([id number]) 2023-04-15 09:32:00 Eva Ramirez [facility] CBC WITH DIFF 2023-04-15 09:32:00 Eva Ramirez [facility] N-TERMINAL PRO-BNP 2023-04-15 09:32:00 Eva Ramirez [facility] NOTICE OF PRIVACY PRACTICES 2023-04-15 08:54:44 Doctor Unassigned, [place] [facility] CONSENT/REFUSAL FOR DIAGNOSIS AND TREATMENT 2023-04-15 08:54:28 Doctor Unassigned, [place] [facility] CT LUMBAR SPINE WO CONTRAST 2022-11-21 20:32:53 Kane Huffman [facility] CT THORAX WO CONTRAST 2022-11-21 20:32:53 Chaitanya Huffman [facility] CONSENT/REFUSAL FOR DIAGNOSIS AND TREATMENT 2022-11-21 18:27:20 Doctor Unassigned, [place] [facility] URINALYSIS 2021-02-13 04:20:00 Eva Ramirez [facility] BASIC METABOLIC PANEL (NA, K, CL, CO2, GLUCOSE, BUN, CREATININE, CA) 2021-02-13 04:08:00 Eva Ramirez [facility] CBC WITH DIFF 2021-02-13 04:08:00 Eva Ramirez [facility] NOTICE OF PRIVACY PRACTICES 2021-02-13 03:11:24 Doctor Unassigned, [place] [facility] CONSENT/REFUSAL FOR DIAGNOSIS AND TREATMENT 2021-02-13 03:10:40 Doctor Unassigned, [place] [facility] Testis [facility] Repair of Ankle [facility] K[facility] Encounters Start Date/Time End Date/Time Encounter Type Admission Type Attending Clinicians Care Facility Care Department Encounter ID Source 2023-04-15 03:08:00 2023-04-15 05:41:00 Emergency X EAV RAMIREZ [facility] ERT [id number] [facility] 2023-04-15 03:08:00 2023-04-15 05:41:00 Emergency Eva Ramirez [facility] [id number] [facility] 2023-04-15 00:00:00 2023-04-15 00:00:00 Orders Only Doctor Unassigned, [place] [facility] 1.2.840.114 350.1.13.10 4.2.7.2.686 [id number] [id number] [facility] 2022-11-21 13:42:00 2022-11-21 17:40:00 Emergency Kane Huffman [facility] 1.2.840.114 350.1.13.10 4.2.7.2.686 [id number] [facility] 2022-11-21 13:42:00 2022-11-21 17:40:00 Emergency X KANE HUFFMAN [facility] ERT [id number] [facility] 2022-01-07 14:00:00 2022-01-07 14:00:00 Outpatient ALBER FARRELL [facility] [id number] [facility] 2022-01-05 10:00:00 2022-01-05 10:00:00 Outpatient ANA BRAND [facility] [id number] [facility] 2021-07-30 15:00:00 2021-07-30 15:00:00 Outpatient LESTER SANDY [facility] [id number] [facility] 2021-05-12 08:40:00 2021-05-12 08:40:00 Outpatient ERICKSON_R [facility] [id number] [facility] 2021-05-09 09:40:00 2021-05-09 09:40:00 Outpatient [facility]SON[facility] [id number] [facility] 2021-05-08 06:02:00 2021-05-08 06:02:00 Outpatient WAQAR_R [facility] [id number] [facility] 2021-05-08 00:00:00 2021-05-08 00:00:00 Werner Zavaleta, DO: [address], [address], [place] [address] , Ph. [facility], DR. ZAVALETA [id number] [facility] 2021-05-08 00:00:00 2021-05-08 00:00:00 Outpatient Werner Zavaleta [facility] [id number] 2021-02-12 22:35:00 2021-02-13 01:24:00 Emergency Abdias Ramirezkay [facility] 1.2.840.114 350.1.13.10 4.2.7.2.686 [id number] [facility] 2021-02-12 22:35:00 2021-02-13 01:24:00 Emergency X EVA RAMIREZ [facility] ERT [id number] [facility] 2021-02-12 00:00:00 2021-02-12 00:00:00 Orders Only Doctor Unassigned, [place] [facility] 1..840.114 350.1.13.10 4.2.7.2.686 [id number] [facility] Results Test Description Test Time Test Comments Results Result Co mments Source [facility] L9068-36-64 10:25:15* Test Item Value Reference Range Interpretation Comme nts TROPONIN I (test code = 4585159736) 0.006 ng/mL <=0.034 HUGH (test code = HUGH) Reference (Normal) Range (defined by the 99th percentile reference limit): <= 0.034 ng/mL Note: Cardiac troponin begins to rise 3-4 hours after the onset of ischemia. Repeat in 4-6 hours if the sample was drawn within 3-4 hours of the onset of the symptom and found normal. Diagnosis of myocardial injury is made with acute changes in cTn concentrations with at least one serial sample above the 99th percentile upper reference limit (URL), taken together with the patient's clinical presentation. Biotin has been reported to cause a negative bias, interpret results relative to patient's use of biotin. Lab Interpretation (test code = 24652-1) Normal [facility]ham[facility]-TERMINAL TYZ-ZQD1414-48-28 10:22:54* Test Item Value Reference Range Interpretation Comme nts NT-proBNP (test code = 49008-8) 32 pg/mL <=125 Lab Interpretation (test cod e = 14431-4) Normal [facility]ham[facility]MP2023-12-28 10:13:53* Test Item Value Reference Range Interpretation Comme nts NA (test code = 0923132389) 141 mmol/L 135-145 K (test code = 2073468958) 3.9 mmol/L 3.5-5.0 CL (test code = 1930683021) 109 mmol/L 98-108 H CO2 TOTAL (test code = 6119778151) 25 mmol/L 23-31 AGAP (test code = 9219536175) 7 2-16 BUN (test code = 4731690749) 23 mg/dL 7-23 GLUCOSE (test code = 9390760490) 155 mg/dL 70-110 H CREATININE (test code = 4778008483) 0.70 mg/dL 0.60-1.25 TOTAL BILI (test code = 5479984136) 0.4 mg/dL 0.1-1.1 CALCIUM (test code = 9952267403) 8.8 mg/dL 8.6-10.6 T PROTEIN (test code = 6345562438) 6.8 g/dL 6.3-8.2 ALBUMIN (test code = 4914120777) 3.7 g/dL 3.5-5.0 ALK PHOS (test code = 2249773855) 58 U/L 34-122 ALTv (test code = 1742-6) 32 U/L 5-50 AST(SGOT) (test code = 6186268526) 27 U/L 13-40 eGFR (test code = 29903-3) 114.4 mL/min/1.73m2 CKD-EPI eGFR (2020). Assuming creatinine has been stable day-to-day for at least three months, the eGFR indicates Category G1 (>= 90 mL/min/1.73 m2) Lab Interpretation (test code = 77935-9) Abnormal [facility] Chest 1 NM0703-17-20 09:50:51Examination: Chest one view (portable frontal) Ordering Physician: POLLY RAMIREZ Date: 04/15/2023 3:30 AM History: ? STEMI ? Comparison: None available Findings: AP chest, 2 images submitted for review. Pulmonary vascularity appears normal. The lungs are clear. There is nosignificant pleural effusion evident. There is no significant pneumothoraxevident. Heart size is normal.[facility]ham[facility] METABOLIC PANEL (NA, K, CL, CO2, GLUCOSE, BUN, CREATININE, CA)2021-02-13 04:53:21* Test Item Value Reference Range Interpretation Comme nts NA (test code = 9345626542) 137 mmol/L 135-145 K (test code = 6202605779) 3.8 mmol/L 3.5-5.0 CL (test code = 6204475638) 107 mmol/L 98-108 CO2 TOTAL (test code = 1450089401) 27 mmol/L 23-31 AGAP (test code = 9903809746) 2-16 BUN (test code = 4288742454) 15 mg/dL 7-23 GLUCOSE (test code = 6392565765) 133 mg/dL 70-110 H CREATININE (test code = 1728814110) 1.07 mg/dL 0.60-1.25 CALCIUM (test code = 4317683851) 8.8 mg/dL 8.6-10.6 eGFR (test code = 9537737859) mL/min/1.73m2 HUGH (test code = HUGH) Association of Glomerular Filtration Rate (GFR) and Staging of Kidney Disease* + --+ --+ ------+| GFR (mL/min/1.73 m2) ?| With Kidney Damage ?| ?Without Kidney Damage+ --------+ --------+ +| ?>90 ?| ?Stage one ?| ? Normal ?+ ---+ ---+ -------+| ?60-89 ?| ?Stage two ?| ? Decreased GFR ? + --+ --+ ------+| ?30-59 ?| ?Stage three ?| ? Stage three ? + --+ --+ ------+| ?15-29 ?| ?Stage four ? | ? Stage four ?+ ---+ ---+ -------+| ?<15 (or dialysis) ? ?| ?Stage five ? | ? Stage five ?+ ---+ ---+ -------+ *Each stage assumes the associated GFR [...] imaging tests). Lab Interpretation (test code = 51847-7) Abnormal [facility] WITH BJEE7271-31-96 04:33:05* Test Item Value Reference Range Interpretation Comme nts WBC (test code = 6690-2) See_Comment [[employer]] The system which generated this result transmitted reference range: 4.20 - 10.70 10*3/?L. The reference range was not used to interpret this result as normal/abnormal. RBC (test code = 789-8) See_Comment [[employer]] The system which generated this result transmitted reference range: 4.26 - 5.52 10*6/?L. The reference range was not used to interpret this result as normal/abnormal. HGB (test code = 718-7) 13.8 g/dL 12.2-16.4 HCT (test code = 4544-3) 40.9 % 38.4-49.3 MCV (test code = 787-2) 84.3 fL 81.7-95.6 MCH (test code = 785-6) 28.5 pg 26.1-32.7 MCHC (test code = 786-4) 33.7 g/dL 31.2-35.0 RDW-SD (test code = 70805-5) 39.7 fL 38.5-51.6 RDW-CV (test code = 788-0) 12.9 % 12.1-15.4 PLT (test code = 777-3) See_Comment [Automated messa ge] The system which generated this result transmitted reference range: 150 - 328 10*3/?L. The reference range was not used to interpret this result as normal/abnormal. MPV (test code = 11791-2) 10.0 fL 9.8-13.0 NRBC/100 WBC (test code = 3294510816) See_Comment [Automated me ssage] The system which generated this result transmitted reference range: 0.0 - 10.0 /100 WBCs. The reference range was not used to interpret this result as normal/abnormal. NRBC x10^3 (test code = 4300094880) <0.01 See_Comment [Automated me ssage] The system which generated this result transmitted reference range: 10*3/?L. The reference range was not used to interpret this result as normal/abnormal. GRAN MAT (NEUT) % (test code = 770-8) 49.2 % IMM GRAN % (test code = 5125116628) 0.50 % LYMPH % (test code = 736-9) 37.3 % MONO % (test code = 5905-5) 9.2 % EOS % (test code = 713-8) 2.8 % BASO % (test code = 706-2) 1.0 % GRAN MAT x10^3(ANC) (test code = 2141899442) 3.75 10*3/uL 1.99-6.95 IMM GRAN x10^3 (test code = 8952482173) 0.04 10*3/uL 0.00-0.06 LYMPH x10^3 (test code = 731-0) 2.84 10*3/uL 1.09-3.23 MONO x10^3 (test code = 742-7) 0.70 10*3/uL 0.36-1.02 EOS x10^3 (test code = 711-2) 0.21 10*3/uL 0.06-0.53 BASO x10^3 (test code = 704-7) 0.08 10*3/uL 0.01-0.09 [facility] Notes Date/Time Note Provider Source 2023-04-15 05:40:20 j7wzPgoSTk2SKk2UTWzB pYoGClQRFopHxET 6Vw725Gv7Iih4c585Jag388MPwH8E4487-9 05:40:20 Pt given printed and verbal discharge instructions regarding SOB, viral bronchitis, COPD exacerbation, Hypertension and encouraged hydration,Prescriptions sent to pharmacyDiscussed ibuprofen and to take with food to avoid GI distress.Pt verbalized understanding of instructions, pt awake alert oriented, resp reg unlabored, skin w/d, color appropriate for race, moves all ext well,pt encouraged to follow up with pcp.Advised to seek medical attention for new/prolonged/worsening of symptoms,No adverse reaction to meds given in ER noted upon dischargePIV d'cd, dressing to site, catheter in tact.Awake, alert oriented, resp reg unlabored, skin w/d, pt leaving amb with steady gait, in no apparent distress, 15078-7Aahendpwx department RvwxGT0442-95-39J00:41:45Emergency department NoteTXT1.2.840.142639.1.13.104.2.7. 2.228705|[id number] for patient difx16380-8BihfJLXVLAKLYKMNylyzjruv C-CDA narrative text[address] Dy[id number] 8YJTJNEPRBDSRZYNYWEIYHX3508-35-74H1 5:41:451.2.840.648773.1.72.3.15|1.2 .840.839575.1.13.104.2.7.2.727879_1 [id number] [facility] 2023-04-15 03:08:52 lDSpVuBLVilBmNpOz47N WIRxZdPp7lLe9p3 r/nZ/zGIv3nNwndTjI167giC8bl+x4496-4 03:08:52 Pt states " I fell like shit. I can't breathe, I have COPD. I can't stop coughing. My inhaler is not working and neither is my breathing treatments." 75184-3Pbkbxmsgq department Triage flbvVA8492-88-00P76:10:01[facility] Triage noteTXT1.2.840.997427.1.13.104.2.7. 2.884884|[id number] for patient msxn67754-6Oglsgslrh department NoteLNNARRATIVEFormatted C-CDA narrative text[address] Kn[id number] 4GVUDZULTDQNHHGERVJYYDC8099-42-12G4 3:10:011.2.840.522157.1.72.3.15|1.2 .840.715456.1.13.104.2.7.2.727879_1 [id number] [facility] 2023-04-15 02:55:00 4d4I3TRzAysxt/abqB84 R+ZodYmuex1fbfg 0XnkeU8PN6KvADN1GyvTpQNUotEsg4044-5 02:55:00 [facility] Emergency Department NotePatient Name: Zachary Moodyte of : 1975 48 year old maleTreatment Room: TX3/GP8Dkczngr Record Number: [id number] Care Physician: Toni MorenoPatient Escorted by: Self [9]Mode of Arrival: Personal means [1]EMS Treatment Prior to ED Arrival:ROLL PANNER treatment: Medication (comment)ROLL PANNER treatment comments: inhaler, z-pack, breathing treatmentTravel and Exposure Screening:SymptomsDoes patient have any of these symptoms?: (not recorded)Exposure ScreeningHas patient had contact with someone with a communicable disease in the last month?: (not recorded)Diseases exposed to:: (not recorded)Is Patient ?: (not recorded)Exposure Date: (not recorded)Chief Complaint:Chief ComplaintPatient presents withCoughShortness of BreathHistory of Present Illness:Zachary Keating is a 48 year old male who presents to the ED with URI symptoms X 2 weeks. Symptoms consist of cough, fever, wheezing and generalized aches. Pt was evaluated in :[place] X 2 and has work-up including Covid-19 and Influenza that was reportedly negativeHistory provided by: Medical records and patientLanguage grey stock recorder used: NoCoughSeverity: ModerateOnset quality: GradualDuration: 2 weeksTiming: SporadicChronicity: RecurrentSmoker: yesContext: upper respiratory infection and weather changesContext: not animal exposure, not exposure to allergens, not fumes, not occupational exposure, not sick contacts, not smoke exposure and not with activityRelieved by: NothingWorsened by: NothingIneffective treatments: Cough suppressantsAssociated symptoms: headaches, myalgias, shortness of breath and wheezingAssociated symptoms: no chest pain, no chills, no diaphoresis, no ear fullness, no ear pain, no eye discharge, no fever, no rash, no rhinorrhea, no sinus congestion, no sore throat and no weight lossRisk factors: no chemical exposure, no recent infection and no recent travelPast Medical History/Immunizations:Past Medical History:Diagnosis DateCOPD (chronic obstructive pulmonary disease)Crohn'sDiverticulitisTetanu s received in last 5 years: YesAllergies:AllergiesAllergen ReactionsAsa [Aspirin] RashCiprofloxacin Other - See commentsIbuprofen RashPenicillin Unknown - See commentsToradol [Ketorolac] Unknown - See commentsPast Social History:Tobacco UseEvery Day; Cigarettes: Started 1986; 0.50 packs/day for 31.00 yearsSmokeless Tobacco: Current user of smokeless tobacco.Past Surgical History:History reviewed. No pertinent surgical history.Review of Systems:Review of SystemsConstitutional: Negative. Negative for chills, diaphoresis, fatigue, fever and weight loss.HENT: Negative for ear pain, rhinorrhea and sore throat.Eyes: Negative. Negative for discharge.Respiratory: Positive for cough, shortness of breath and wheezing. Negative for stridor.Breasts: Negative.Cardiovascular: Negative. Negative for chest pain and leg swelling.Gastrointestinal: Negative.Genitourinary: Negative.Musculoskeletal: Positive for myalgias.Skin: Negative. Negative for rash.Neurological: Positive for headaches.Psychiatric/Behavioral: Negative.All other systems reviewed and are negative.Endocrine: Endocrine negativeNegative for weight loss.Physical Exam:ED Triage Vitals [04/15/23 0311]Weight 149.7 kg (330 lb)Actual or estimatedHeight 1.905 m (6' 3")BP (!) 166/102Pulse 92Resp 20Temp 36.7 ?C (98 ?F)Temp source OralSpO2 98 %Measured on Room airPhysical ExamVitals and nursing note reviewed.Constitutional:General: He is not in acute distress.Appearance: Normal appearance. He is well-developed. He is obese. He is not ill-appearing, toxic-appearing or diaphoretic.HENT:Head: Normocephalic and atraumatic.Nose: Nose normal. No congestion or rhinorrhea.Mouth/Throat:Mouth: Mucous membranes are moist.Pharynx: Oropharynx is clear. No oropharyngeal exudate or posterior oropharyngeal erythema.Eyes:General: No scleral icterus.Right eye: No discharge.Left eye: No discharge.Extraocular Movements: Extraocular movements intact.Conjunctiva/sclera: Conjunctivae normal.Pupils: Pupils are equal, round, and reactive to light.Cardiovascular:Rate and Rhythm: Normal rate and regular rhythm.Pulses: Normal pulses.Heart sounds: Normal heart sounds. No murmur heard.Pulmonary:Effort: Pulmonary effort is normal. No respiratory distress.Breath sounds: No stridor. Wheezing and rhonchi present. No rales.Chest:Chest wall: No tenderness.Abdominal:General: Bowel sounds are normal. There is no distension.Palpations: Abdomen is soft. There is no mass.Tenderness: There is no abdominal tenderness. There is no right CVA tenderness, guarding or rebound.Hernia: No hernia is present.Musculoskeletal:General: No swelling, tenderness, deformity or signs of injury. Normal range of motion.Cervical back: Normal range of motion and neck supple. No rigidity.Right lower leg: No edema.Left lower leg: No edema.Lymphadenopathy:Cervical: No cervical adenopathy.Skin:General: Skin is warm and dry.Capillary Refill: Capillary refill takes less than 2 seconds.Coloration: Skin is not jaundiced or pale.Findings: No bruising, erythema, lesion or rash.Neurological:General: No focal deficit present.Mental Status: He is alert and oriented to person, place, and time.Cranial Nerves: No cranial nerve deficit.Sensory: No sensory deficit.Motor: No weakness.Coordination: Coordination normal.Gait: Gait normal.Deep Tendon Reflexes: Reflexes normal.Psychiatric:Behavior: Behavior normal.Thought Content: Thought content normal.Judgment: Judgment normal.Radiology:XR Chest 1 VWFinal ResultExamination: Chest one view (portable frontal)Ordering Physician: EVA GONGORAMADate: 04/15/2023 3:30 AMHistory: STEMIComparison: None availableFindings: AP chest, 2 images submitted for review.Pulmonary vascularity appears normal. The lungs are clear. There is nosignificant pleural effusion evident. There is no significant pneumothoraxevident. Heart size is normal.IMPRESSIONImpression:No radiographic evidence of acute cardiopulmonary disease.Technical Quality: AdequateRL: 109AFC: 49874Omr of report Lab Results:Lab ResultsCBC WITH DIFF - AbnormalResult Value Ref RangeWBC 13.75 (*) 4.20 - 10.70 10*3/?LRBC 4.58 4.26 - 5.52 10*6/?LHGB 13.5 12.2 - 16.4 g/dLHCT 41.2 38.4 - 49.3 %MCV 90.0 81.7 - 95.6 fLMCH 29.5 26.1 - 32.7 pgMCHC 32.8 31.2 - 35.0 g/dLRDW-SD 44.7 38.5 - 51.6 fLRDW-CV 13.7 12.1 - 15.4 %PLT 154 150 - 328 10*3/?LMPV 11.3 9.8 - 13.0 fLNRBC/100 WBC 0.0 0.0 - 10.0 /100 WBCsNRBC x10^3 <0.01 10*3/?LGRAN MAT (NEUT) % 64.4 %IMM GRAN % 1.40 %LYMPH % 25.4 %MONO % 7.7 %EOS % 0.7 %BASO % 0.4 %GRAN MAT x10^3(ANC) 8.85 (*) 1.99 - 6.95 10*3/uLIMM GRAN x10^3 0.19 (*) 0.00 - 0.06 10*3/uLLYMPH x10^3 3.49 (*) 1.09 - 3.23 10*3/uLMONO x10^3 1.06 (*) 0.36 - 1.02 10*3/uLEOS x10^3 0.10 0.06 - 0.53 10*3/uLBASO x10^3 0.06 0.01 - 0.09 10*3/uLCOMP. METABOLIC PANEL (66383) - AbnormalNA 141 135 - 145 mmol/LK 3.9 3.5 - 5.0 mmol/LCL 109 (*) 98 - 108 mmol/LCO2 TOTAL 25 23 - 31 mmol/LAGAP 7 2 - 16BUN 23 7 - 23 mg/dLGLUCOSE 155 (*) 70 - 110 mg/dLCREATININE 0.70 0.60 - 1.25 mg/dLTOTAL BILI 0.4 0.1 - 1.1 mg/dLCALCIUM 8.8 8.6 - 10.6 mg/Griselda PROTEIN 6.8 6.3 - 8.2 g/dLALBUMIN 3.7 3.5 - 5.0 g/dLALK PHOS 58 34 - 122 U/LALTv 32 5 - 50 U/LAST(SGOT) 27 13 - 40 U/LeGFR 114.4 mL/min/1.36w8BGOSLLVL I - NormalTROPONIN I 0.006 <=0.034 ng/mLN-TERMINAL PRO-BNP - NormalNT-proBNP 32 <=125 pg/mLOrders and Treatments:Orders Placed This EncounterProceduresXR Chest 1 VWTroponin ICBC with DiffCMPN-TERMINAL PRO-BNPOrders Placed This EncounterMedicationsDISCONTD: ipratropium-albuteroL (DUONEB) 0.5 mg-3 mg(2.5 mg base)/3 mL nebulizer solution 3 mLmethylprednisolone sod succ (SOLU-MEDROL) injection 125 mgipratropium-albuteroL (DUONEB) 0.5 mg-3 mg(2.5 mg base)/3 mL nebulizer solution 3 mLmagnesium sulfate in water 2 gram/50 mL (4 %) infusion 2 gipratropium-albuteroL (DUONEB) 0.5 mg-3 mg(2.5 mg base)/3 mL nebulizer solution 3 mLHYDROcodone-acetaminophen (NORCO) 10-325 mg tablet 1 tabletalbuterol 90 mcg/actuation inhalerpredniSONE 20 mg tabletcodeine-guaifenesin 10-100 mg/5 mL oral solutionalbuterol 2.5 mg /3 mL (0.083 %) nebulizer solutionFirst Provider Eval:ED EventsDate/Time Event User Zhiusgbi29/28/23310 Medical Screening Begins EVA RAMIREZ MD --04/15/23310 First Provider Evaluation EVA RAMIREZ MD --ED COURSEDiagnosis/Impression as of 04/15/23 0537Viral bronchitisCOPD exacerbationHypertension, uncontrolledProcedures:ProceduresMD M:Medical Decision MakingJacielo Keating is a 48 year old male with hx of COPD who recently stopped smoking presents to the ED with cough, wheezing X 2 weeksProblems Addressed:COPD exacerbation: chronic illness or injury with exacerbation, progression, or side effects of treatmentDetails: Has very mild expiratory wheezes that resolved after ED managementHas no oxygen requirement during entire ED stayHypertension, uncontrolled: chronic illness or injuryViral bronchitis: acute illness or injuryAmount and/or Complexity of Data ReviewedLabs: ordered. Decision-making details documented in ED Course.Radiology: ordered and independent interpretation performed. Decision-making details documented in ED Course.ECG/medicine tests: ordered and independent interpretation performed. Decision-making details documented in ED Course.Details: EKG interpreted by me as:NSRRate [address] elevation or depressionRiskOTC drugs.Prescription drug management.Flowsheet Documentation:Pt asking for Morphine or Dilaudid for generalized aches/pain and pain associated with cough. Hydrocodone 10 mg ordered for pt, but pt DECLINED sameScoring Tools:No data recordedDisposition/Condition:ED DispositionED DispositionDisch - HomeConditionStableComment--Dischar ge Medications:Patient's MedicationsSTART taking these medicationsALBUTEROL 2.5 MG /3 ML (0.083 %) NEBULIZER SOLUTION Inhale 3 mL every 6 (six) hours as needed for Wheezing, Shortness of Breath, Bronchospasm or Chest tightness. May also nebulize one extra every 6 hours.ALBUTEROL 90 MCG/ACTUATION INHALER Inhale 2 Puffs every 4 (four) hours as needed for Wheezing or Shortness of Breath.CODEINE-GUAIFENESIN 10-100 MG/5 ML ORAL SOLUTION Take 10 mL by mouth every 6 (six) hours as needed for Cough for up to 7 days. Indications: COUGHPREDNISONE 20 MG TABLET TAKE ONE TABLET ORALLY TWICE A DAY FOR FIVE DAYSCONTINUE taking these medications which have NOT CHANGEDACETAMINOPHEN-CODEINE 300-30 MG TABLET Take 1 tablet by mouth every 6 (six) hours as needed for Pain (scale 4-6) for up to 15 doses. Indications: acute painALBUTEROL 90 MCG/ACTUATION INHALER Inhale 2 Puffs every 6 (six) hours as needed for Wheezing or Shortness of Breath.BUDESONIDE-FORMOTEROL 160-4.5 MCG/ACTUATION INHALER Symbicort 160 mcg-4.5 mcg/actuation HFA aerosol inhalerCELECOXIB (CELEBREX ORAL) Take by mouth.CLINDAMYCIN 300 MG CAPSULE Take 1 capsule by mouth 4 (four) times daily.HYDROCODONE-ACETAMINOPHEN (NORCO) 10-325 MG TABLET Take 2 Tabs by mouth daily.KETOROLAC 10 MG TABLET Take 10 mg by mouth.MELOXICAM 7.5 MG TABLET meloxicam 7.5 mg tabletTRAMADOL (ULTRAM) 50 MG TABLET Take 1 tablet by mouth every 6 (six) hours as needed for Pain (scale 4-6).START taking Modified Medications as PrescribedNo medications on fileSTOP taking these medicationsCYCLOBENZAPRINE 10 MG TABLET cyclobenzaprine 10 mg tabletTake 1 tablet twice a day by oral route as directed for 28 days.GABAPENTIN 300 MG CAPSULE Take 1 capsule by mouth 3 (three) times daily.PROMETHAZINE 25 MG TABLET Take 1 tablet by mouth every 6 (six) hours as needed for Nausea and Vomiting (N/V).Follow-up:Contact information for follow-upSDb gore, DOSpecialty: IM-PULMONARY DISEASE, IM-CRITICAL CARE [facility] [place] AND HYDBOHN[address] [facility] [address]Tszpw: [phone] signed by:Eva Ramirez MD04/15/23 0537 51117-9Qpvnenixa Emergency department OtqcRE6736-60-08G44:37:25Physician Emergency department NoteTXT1.2.840.681899.1.13.104.2.7. 2.755481|[id number] for patient tvwe67656-4Zilfknzac department NoteLNNARRATIVEFormatted C-CDA narrative text[address] An[id number] 0QCQSPCBWRQZGNLTMXWHEBV1579-38-45H1 5:37:251.2.840.444457.1.72.3.15|1.2 .840.086341.1.13.104.2.7.2.727879_1 [id number] [facility] 2022-11-21 18:11:41 CSeeykYhdY7n8EnNgJxT /mhoxuMypQit+ci D6TBPcH6CZvkb4GOZuDqjz+23XFV86594-3 11-21T18:11:41 Pt given printed and verbal discharge instructions regarding fall, rib fracture, knee pain, encouraged hydration.2 Prescriptions sent to pharmacy.Discussed ibuprofen and to take with food to avoid GI distress.Discussed Tylenol # 3/[place] side affects and to avoid driving/operating machinery/or engaging in activities requiring alertness while taking.Pt verbalized understanding of instructions, pt awake alert oriented, resp reg unlabored, skin w/d, color appropriate for race, moves all ext well,pt encouraged to follow up with pcp.Advised to seek medical attention for new/prolonged/worsening of symptoms,Symptoms improved.No adverse reaction to meds given in ER noted upon discharge.PIV d'cd, dressing to site, catheter in tact.Awake, alert oriented, resp reg unlabored, skin w/d, pt leaving via wheelchair, in no apparent distress. 67878-9Ogfrmmwxs department ZnitAN6760-22-22L98:13:33[facility] NoteTXT1.2.840.378517.1.13.104.2.7. 2.466351|[id number] for patient [id number] M Herrera RN[address] Ul[id number] 8:13:[id number]|1.2 .[id number]_1 [id number] Shell Sears RN [facility] 2022-11-21 13:35:53 SUAGiZx3NBwWBcyGyPNe PNHLZoJcp080Fiu JyYb5NbaUIh6yCgrELOLi/4l2RnZe4560-7 3:35:53 Patient states: "About 1.5 hours ago I was playing basketball, went up for a rebound. I fell and landed on my hand on my left ribs with some people on top of me. I'm having bad rib pain and shortness of breath. Also my right knee hurts pretty bad" [id number] department Triage rhqcSP3228-10-17C07:36:53[facility] Triage [id number]. [id number] for patient [id number] department [id number] M Hair RN[address] F[id number] [id number] 3:36:531.2.840.546731.1.72.3.15|1.2 .[id number]_1 [id number] Sowmya Wilkerson Hair RN [facility] 2022-11-21 13:27:00 BFPT+[id number] 0RgpNDYhYnimpXk LR1NTSoS75oo+V8wBTZeFaf1t6hBm1294-3 3:27:00 [facility] Emergency Department NotePatient Name: Zachary KeatingDate of : 1975 47 year old maleTreatment [address]49Kbegcec Record Number: [id number] Care Physician: Kye EstebansPatient Escorted by: Family [5]Mode of Arrival: Personal means [1]EMS Treatment Prior to ED Arrival:ROLL PANNER treatment: None Travel and Exposure Screening:SymptomsDoes patient have any of these symptoms?: (not recorded)Exposure ScreeningHas patient had contact with someone with a communicable disease in the last month?: (not recorded)Diseases exposed to:: (not recorded)Is Patient ?: (not recorded)Exposure Date: (not recorded)Chief Complaint:Chief Complaint Patient presents with Fall Rib Pain Left History of Present Illness:Pt presents after playing basketball and landing on his L chest. PT c/o L sided rib pain, low back pain and felt his Rt knee "pop." Pt did not take anything for pain. Past Medical History/Immunizations:Past Medical History: Diagnosis Date COPD (chronic obstructive pulmonary disease) Tetanus received in last 5 years: UnknownChildhood immunizations: Up-to-date Allergies:Allergies Allergen Reactions Asa [Aspirin] Rash Ciprofloxacin Other - See comments Ibuprofen Rash Penicillin Unknown - See comments Toradol [Ketorolac] Unknown - See comments Past Social History:Tobacco Use Every Day; Cigarettes: Started 1986; 0.50 packs/day for 31.00 years Smokeless Tobacco: Current user of smokeless tobacco. Past Surgical History:History reviewed. No pertinent surgical history.Review of Systems: Review of Systems Constitutional: Negative for fever. HENT: Negative for voice change. Respiratory: L sided rib pain Musculoskeletal: Positive for arthralgias and back pain. Rt knee pain Skin: Negative for wound. Psychiatric/Behavioral: Negative for confusion. Physical Exam: ED Triage Vitals [11/21/22 1337] Weight 154.2 kg (340 lb) Actual or estimated Estimated by patient/family report Height 1.905 m (6' 3") BP (!) 123/94 Pulse 97 Resp 22 Temp 36.8 ?C (98.3 ?F) Temp source Oral SpO2 96 % Measured on Room air Physical ExamVitals and nursing note reviewed. Constitutional: Appearance: Normal appearance. Eyes: Extraocular Movements: Extraocular movements intact. Cardiovascular: Rate and Rhythm: Normal rate. Pulmonary: Effort: Pulmonary effort is normal. Comments: Ttp over L lateral side of chestChest: Chest wall: Tenderness present. Musculoskeletal: General: Tenderness present. Comments: Ttp over lumbar region, ttp over Rt knee, some laxity on anterior drawer/valgus/varus stress Neurological: Mental Status: He is alert. Radiology:CT LUMBAR SPINE WO CONTRAST Final Result ORDERING PHYSICIAN: KANE HUFFMAN CLINICAL HISTORY: eval for fx TECHNIQUE: CT of the lumbar spine without intravenous contrast. Exam was performed with radiation as low as reasonably achievable (ALARA) principles. COMPARISON: None. FINDINGS: Normal lumbar spine alignment. Vertebral bodies are normal height. No evidence of acute lumbar spine fracture or spondylolisthesis. Unremarkable paravertebral soft tissues, partially imaged pelvic bones and sacroiliac joints. Multilevel degenerative disc disease of lumbar spine. Schmorl's node at superior L3 endplate. Moderate to severe disc height loss anteriorly at L1-L2. Findings at each level: T12-L1: No spinal canal or neural foraminal stenosis. L1-2: Diffuse disc bulge. No significant spinal canal stenosis, 12 mm AP. No stenosis of neural foramina. L2-3: Trace diffuse disc bulge. No spinal canal or neural foraminal stenosis. L3-4: No spinal canal or neural foraminal stenosis. L4-5: Decreased diffuse disc bulge. No spinal canal stenosis. Mild bilateral facet joint disease. Mild stenosis of both neural foramina. L5-S1: Diffuse disc bulge. No spinal canal stenosis. Mild stenosis of both neural foramina. IMPRESSION 1. No evidence of acute lumbar spine injury. 2. Mild stenosis of bilateral L4-5 and bilateral L5-S1 neural foramina. No significant spinal canal stenosis. RL: [id number] AF: [id number] End of report. THORAX WO CONTRAST Final Result CT SCAN OF THE CHEST WITHOUT CONTRAST 11/21/2022 2:11 PM TECHNIQUE: Multidetector helical CT scan of the chest was performed without intravenous administration of contrast. Coronal and sagittal reformats as well axial MIPs imaging were acquired. CLINICAL INFORMATION: eval for rib fractures COMPARISON: Abdominal CT 07/24/2018 FINDINGS: Devices: None. PULMONARY PARENCHYMA/PLEURA: Relatively upper lung zone substantial paraseptal and confluent centrilobular emphysema. No suspicious nodules. No pleural effusion. No pneumothorax. LYMPH NODES: No thoracic adenopathy. MEDIASTINUM/ LOWER NECK: No mediastinal mass is seen.. No actionable thyroid nodule is present. CARDIOVASCULAR: The cardiac size is normal. No pericardial effusion. The great vessels caliber is normal. [...] right anterior fifth rib suggestive of healed fracture. IMPRESSION Nondisplaced incomplete fracture of anterior left fourth rib. No other acute intrathoracic injury. Substantial paraseptal and confluent centrilobular emphysema. Stable splenomegaly. Colonic diverticulosis. XR KNEE 3 VW RIGHT Preliminary Result EXAM: XR KNEE 3 VW RIGHT HISTORY: 47 years-old Male; eval for fx s/p fall . COMPARISON: Right knee x-ray 07/18/2018 FINDINGS: Radiographs of the right knee were obtained. No acute fracture or traumatic dislocation is visualized. The alignment is maintained. Mild tricompartmental joint space, osteophytosis and subchondral sclerosis. Small effusion is present. IMPRESSION No acute osseous abnormality. Preliminary Report Dictated by Resident: Sherly Larios Lab Results:Lab Results - No data to displayEKG:If EKG completed, see Procedure Note. Orders and Treatments:Orders Placed This Encounter Procedures CT LUMBAR SPINE WO CONTRAST CT THORAX WO CONTRAST XR KNEE 3 VW RIGHT Orders Placed This Encounter Medications morpHINE (4 mg/mL) injection 4 mg acetaminophen ADULT (OFIRMEV) injection 1,000 mg HYDROmorphone (DILAUDID) injection 1 mg methocarbamoL (ROBAXIN) injection 1,000 mg cyclobenzaprine 10 mg tablet acetaminophen-codeine 300-30 mg tablet First Provider Eval:ED Events Date/Time Event User Comments 11/21/22 135 Medical Screening Begins KANE HUFFMAN MD -- 11/21/221354 First Provider Evaluation KANE HUFFMAN MD -- No notes of EC Admission Criteria type on file.ED COURSEDiagnosis/Impression as of 11/21/22 1707 Fall, initial encounter Will obtain ct chest/L spine, x-ray of R knee. Pt to receive analgesia. 17:05 PT informed of results. PT improved s/p treatment. PT to be shown how to use incentive spirometer. PT and comfortable with plan. Procedures: ProceduresMDM:Medical Decision Pburww46 yo M presents after fallProblems Addressed:Fall, initial encounter: acute illness or injury Details: ct chest- nondisplaced anterior 4th rib fxAmount and/or Complexity of Data ReviewedIndependent Historian: spouseRadiology: ordered.RiskPrescription drug management.Risk Details: Pt understands need for f/u and to use incentive spirometer Flowsheet Documentation: Scoring Tools: No data recorded Disposition/Condition:ED Disposition ED Disposition Disch - Home Condition Stable Comment -- Discharge Medications:Patient's Medications START taking these medications ACETAMINOPHEN-CODEINE 300-30 MG TABLET Take 1 tablet by mouth every 6 (six) hours as needed for Pain (scale 4-6) for up to 15 doses. Indications: acute pain CYCLOBENZAPRINE 10 MG TABLET Take 1 tablet by mouth in the morning and 1 tablet at noon and 1 tablet in the evening. Do all this for 5 days. CONTINUE taking these medications which have NOT CHANGED ALBUTEROL 90 MCG/ACTUATION INHALER Inhale 2 Puffs every 6 (six) hours as needed for Wheezing or Shortness of Breath. BUDESONIDE-FORMOTEROL 160-4.5 MCG/ACTUATION INHALER Symbicort 160 mcg-4.5 mcg/actuation HFA aerosol inhaler CELECOXIB (CELEBREX ORAL) Take by mouth. CLINDAMYCIN 300 MG CAPSULE Take 1 capsule by mouth 4 (four) times daily. CYCLOBENZAPRINE 10 MG TABLET cyclobenzaprine 10 mg tablet Take 1 tablet twice a day by oral route as directed for 28 days. GABAPENTIN 300 MG CAPSULE Take 1 capsule by mouth 3 (three) times daily. HYDROCODONE-ACETAMINOPHEN (NORCO) 10-325 MG TABLET Take 2 Tabs by mouth daily. KETOROLAC 10 MG TABLET Take 10 mg by mouth. MELOXICAM 7.5 MG TABLET meloxicam 7.5 mg tablet PROMETHAZINE 25 MG TABLET Take 1 tablet by mouth every 6 (six) hours as needed for Nausea and Vomiting (N/V). TRAMADOL (ULTRAM) 50 MG TABLET Take 1 tablet by mouth every 6 (six) hours as needed for Pain (scale 4-6). START taking Modified Medications as Prescribed No medications on file STOP taking these medications No medications on file Follow-up:Electronically signed by: Kane Huffman MD11/21/22 1708 [id number] Emergency department [id number]:08:54Physician Emergency department [id number]. [id number] for patient xnmm03691-7Snmozzvir department NoteLNUT[address] Bq[id number] [id number] 7:08:541.2.840.453633.1.72.3.15|1.2 .[id number]_1 [id number] [facility]
[2023-05-10 21:12] LABS: Arterial Blood Carboxyhemoglob 2.6 % (0-1.5); Blood O2 Saturation 95.2 % (92-98.5)
[2023-05-10 21:40] LABS: Protime INR 0.94
[2023-05-10 21:50] LABS: ALT/SGPT 45 U/L (16-61); AST/SGOT 29 U/L (15-37); Absolute Lymphocytes (CBC) 2.2 K/uL (0.7-4.9); Albumin 3.2 g/dL (3.4-5.0); Alkaline Phosphatase 81 U/L (45-117); BUN Blood Urea Nitrogen 13 mg/dL (7-18); Bicarbonate 27 mEq/L (21-32); Bilirubin Direct < 0.1 mg/dL (0-0.2); Bilirubin Indirect, Calculated ND mg/dL (0.2-0.8); Bilirubin Total 0.3 mg/dL (0.2-1.0); Glomerular Filtration Rate 91 ml/min (=/>90); Glucose Level 109 mg/dL (74-106); Lymphocytes % 23.9 % (15.3-44.8); MCV 86.7 fL (80-100); MPV 8.8 fL (7.6-11.3); Magnesium 2.1 mg/dL (1.6-2.4); NT PRO-BNP 144 pg/mL (<125); Platelets 203 thou/uL (152-406); Potassium 3.7 mEq/L (3.5-5.1); Protein, Total 6.9 g/dL (6.4-8.2); RBC Red Blood Cell Count 4.61 M/uL (4.33-5.43); Sodium Level 140 mEq/L (136-145); Troponin High Sensitivity 9.2 pg/mL (<58.9)
--- NOTE | 2023-05-10 21:57 | RAD REPORT ---
EXAM DESCRIPTION: RADChest Single View05/10/2023 9:07 pm CLINICAL HISTORY: CHEST PAIN COMPARISON: Chest Single View dated 04/26/2023; Chest Single View dated 04/13/2023; Chest Single View dated 04/09/2023; Chest Single View dated 04/07/2023 TECHNIQUE: Portable AP view of the chest. FINDINGS: The lungs are clear. Decreased inspiratory effort limits evaluation. No pneumothorax or ef fusion. The cardiomediastinal contours are unremarkable. IMPRESSION: No acute cardiopulmonary process.
--- NOTE | 2023-05-10 23:59 | ER ---
Nurse's Notes [facility] Name: Dennis Keating Age: 48 yrs Sex: Male : 1975 Arrival Date: 05/10/2023 Time: 20:38 Bed 2 Private MD: Diagnosis: Acute bronchitis, unspecified;COPD/ Chronic obstructive pulmonary disease with (acute) exacerbation;Acute pleuritic chest pain Presentation: 05/10 20:49 Chief complaint: Patient states: "I've been having SOB/difficulty breathing with a jw7 tightness in my chest when I breath and the pain goes to my back between my shoulder blades". Coronavirus screen: At this time, the client does not indicate any symptoms associated with coronavirus-19. Ebola Screen: No symptoms or risks identified at this time. Initial Sepsis Screen: Does the patient meet any 2 criteria? No. Patient's initial sepsis screen is negative. Does the patient have a suspected source of infection? No. Patient's initial sepsis screen is negative. Risk Assessment: Do you want to hurt yourself or someone else? Patient reports no desire to harm self or others. Onset of symptoms was May 10, 2023. Care prior to arrival: Medication(s) given: Breathing Treatment. 20:49 Method Of Arrival: [facility] jw7 20:49 Acuity: [facility] 3 jw7 20:49 Care prior to arrival: IV initiated. 20 GA, in the left antecubital area. jw7 Triage Assessment: 20:53 General: Appears in no apparent distress. uncomfortable, Behavior is calm, cooperative. jw7 Pain: Complains of pain in chest, base of tongue and throat Pain radiates to back between shoulder blades Pain currently is 9 out of 10 on a pain scale. Quality of pain is described as heavy, pressure, tightness Pain began suddenly, Is continuous. EENT: No deficits noted. Neuro: Level of Consciousness is awake, alert, obeys commands, Oriented to person, place, time, situation. Cardiovascular: Capillary refill < 3 seconds Clubbing of nail beds is absent JVD is absent Patient's skin is warm and dry. Respiratory: Airway is patent Trachea midline Respiratory effort is even, unlabored, Respiratory pattern is regular, symmetrical, Parent/caregiver reports the patient having shortness of breath cough that is non-productive, pain with respiration pain with cough. GI: Abdomen is round non-distended. : No deficits noted. No signs and/or symptoms were reported regarding the genitourinary system. Derm: Skin is intact, is healthy with good turgor, Skin is dry, Skin is normal, Skin temperature is warm. Musculoskeletal: Circulation, motion, and sensation intact. Range of motion: intact in all extremities. Historical: - Allergies: 20:53 Aspirin; jw7 20:53 Cipro PO; jw7 20:53 Ibuprofen; jw7 20:53 PENICILLINS; jw7 20:53 Toradol; jw7 - Home Meds: 20:53 Trazodone Oral [Active]; Albuterol Inhl [Active]; [place] Oral [Active]; jw7 - PMHx: 20:53 Back pain; Chronic obstructive lung disease; CHRONS; Diverticulitis; Myocardial jw7 infarction; - PSHx: 20:53 Ankle; bowel resection; foot; hand; knee; testicle; jw7 - Immunization history:: Adult Immunizations up to date, Client reports receiving the 2nd dose of the Covid vaccine, Last tetanus immunization: < 10 years ago Flu vaccine is not up to date. - Social history:: Smoking status: Patient reports the use of cigarette tobacco products, smokes 0.25 packs per day, Patient/guardian denies using alcohol, street drugs, IV drugs. - Family history:: not pertinent. Screenin:[address] [facility] ED Fall Risk Assessment (Adult) History of falling in the last 3 months, jw7 including since admission No falls in past 3 months (0 pts) Score/Fall Risk Level 0 - 2 = Low Risk Oriented to surroundings, Maintained a safe environment, Educated pt \\T\\ family on fall prevention, incl call for assistance when getting out of bed. Abuse screen: Denies threats or abuse. Denies injuries from another. Abuse screen:. Nutritional screening: No deficits noted. Tuberculosis screening: No symptoms or risk factors identified. Assessment: 21:00 General: See triage assessment. jw7 22:00 Reassessment: Patient appears in no apparent distress at this time. No changes from jw7 previously documented assessment. Patient and/or family updated on plan of care and expected duration. Pain level reassessed. Patient is alert, oriented x 3, equal unlabored respirations, skin warm/dry/pink. Vital Signs: 20:49 BP 157 / 75; Pulse 95; Resp 19 S; Temp 98.2(O); Pulse Ox 95% on R/A; Weight 167.83 kg; jw7 Height 6 ft. 3 in. ; Pain 9/10; 22:41 BP 126 / 61; Pulse 91; Resp 19 S; Pulse Ox 93% on R/A; jw7 23:30 BP 125 / 64; Pulse 86; Resp 19; Pulse Ox 94% ; j7 05/11 00:23 BP 127 / 61; Pulse 89; Resp 18; Pulse Ox 95% ; j7 05/10 20:49 Body Mass Index 46.25 (167.83 kg, 190.5 cm) jw7 05/10 20:49 Pain Scale: Adult jw7 ED Course: 05/10 20:40 Patient arrived in ED. ty 20:41 Carmine Coy MD is Attending Physician. sp4 20:52 Triage completed. jw7 20:53 Arm band placed on. jw7 20:58 Patient has correct armband on for positive identification. Bed in low position. Call jw7 light in reach. 20:59 Maintain EMS IV. Dressing intact. Good blood return noted. Site clean \\T\\ dry. Gauge \\T\\ jw 7 site: 20G RAC. 21:08 XRAY Chest (1 view) In Process Unspecified. EDMS 21:36 COVID-19 SARS RT PCR Sent. jw7 21:36 Influenza Screen (a \\T\\ B) Sent. jw7 21:37 EKG done, by ED staff, reviewed by Carmine Coy MD. 7 05/11 00:23 No provider procedures requiring assistance completed. IV discontinued, intact, jj7 bleeding controlled, No redness/swelling at site. Pressure dressing applied. Administered Medications: 05/10 21:36 Drug: Methocarbamol PO 1500 mg PO once Route: PO; jw7 05/11 00:22 Follow up: Response: Marked relief of symptoms j7 05/10 21:37 Drug: morphine IVP or IV 4 mg IVP once over 4 mins Route: IVP; Infused Over: 4 mins; jw7 Site: left antecubital; 21:37 Drug: Ondansetron IVP 4 mg IVP once; over 2 minutes Route: IVP; Site: left antecubital; jw7 21:37 Drug: DuoNeb Nebulize (3:1) (2.5 mg - 0.5 mg) 3 ml Nebulizer once Route: Nebulizer; jw7 21:57 Drug: morphine IVP or IV 4 mg IVP once over 4 mins Route: IVP; Infused Over: 4 mins; jw7 Site: left antecubital; 05/11 00:22 Follow up: Response: Marked relief of symptoms jj7 00:22 Drug: predniSONE PO 60 mg PO once Route: PO; jj7 00:22 Follow up: Response: No adverse reaction jj7 Medication: 00:23 VIS not applicable for this client. jj7 Outcome: 05/10 23:58 Discharge ordered by . naila 05/11 00:23 Discharged to home ambulatory, jzakcery7 Condition: improved Discharge instructions given to patient, Instructed on discharge instructions, follow up and referral plans. medication usage, Demonstrated understanding of instructions, follow-up care, medications, Prescriptions given X 3, 00:27 Patient left the ED. jj7 Signatures: Dispatcher [employer] EDMT Eda Lee RN RN jw7 Mode Ziegler RN RN jj7 Carmine Coy MD MD sp4 Mesfin Tejeda
--- NOTE | 2023-05-10 23:59 | EDPHYS ---
Physician Documentation [facility] Name: Dennis Keating Age: 48 yrs Sex: Male : 1975 Arrival Date: 05/10/2023 Time: 20:38 Bed 2 Private MD: ED Physician Carmine Coy HPI: 05/10 20:41 This 48 yrs old Male presents to ER via Unassigned with complaints of Gen sp4 complaint . 20:41 PMH- Historical: Allergies: Aspirin; Cipro PO; Ibuprofen; PENICILLINS; Toradol; PMHx: sp4 Back pain; Chronic obstructive lung disease; CHRONS; Diverticulitis; Myocardial infarction PSHx: Ankle; bowel resection; foot; hand; knee; testicle; . 20:48 48-year-old male past medical history of COPD, chronic back pain, PA, bowel resection, sp4 Crohn's disease, presents with EMS for acute cough chest pain and shortness of breath starting at home approximately 30 minutes prior to arrival. Patient had breathing treatment on EMS unit. Patient reports chest pain that is pleuritic secondary to cough . Historical: - Allergies: 20:53 Aspirin; jw7 20:53 Cipro PO; jw7 20:53 Ibuprofen; jw7 20:53 PENICILLINS; jw7 20:53 Toradol; jw7 - Home Meds: 20:53 Trazodone Oral [Active]; Albuterol Inhl [Active]; [place] Oral [Active]; jw7 - PMHx: 20:53 Back pain; Chronic obstructive lung disease; CHRONS; Diverticulitis; Myocardial jw7 infarction; - PSHx: 20:53 Ankle; bowel resection; foot; hand; knee; testicle; jw7 - Immunization history:: Adult Immunizations up to date, Client reports receiving the 2nd dose of the Covid vaccine, Last tetanus immunization: < 10 years ago Flu vaccine is not up to date. - Social history:: Smoking status: Patient reports the use of cigarette tobacco products, smokes 0.25 packs per day, Patient/guardian denies using alcohol, street drugs, IV drugs. - Family history:: not pertinent. ROS: 20:48 Constitutional: Negative for fever, chills, and weight loss, positive pleuritic chest sp4 pain, positive cough, positive shortness of breath. 20:48 All other systems are negative, Exam: 20:48 Constitutional: This is a well developed, well nourished patient who is awake, alert, sp4 and in no acute distress. Overweight male , multiple abdominal scars from prior surgery Head/Face: Normocephalic, atraumatic. Eyes: Pupils equal round and reactive to light, extra-ocular motions intact. Lids and lashes normal. Conjunctiva and sclera are not injected. Cornea within normal limits. Periorbital areas with no swelling, redness, or edema. ENT: Nares patent. No nasal discharge, no septal abnormalities noted. Tympanic membranes are normal and external auditory canals are clear. Oropharynx with no redness, swelling, or masses, exudates, or evidence of obstruction, uvula midline. Mucous membranes moist. Neck: Trachea midline, no thyromegaly or masses palpated, and no cervical lymphadenopathy. Supple, full range of motion without nuchal rigidity, or vertebral point tenderness. Chest/axilla: Normal chest wall appearance and motion. Nontender with no deformity. No lesions are appreciated. Cardiovascular: Regular rate and rhythm with a normal S1 and S2. No gallops, murmurs, or rubs. Normal PMI, no JVD. No pulse deficits. Respiratory: Lungs have equal breath sounds bilaterally, clear to auscultation and percussion. No rales, rhonchi or wheezes noted. No increased work of breathing, no retractions or nasal flaring. Abdomen/GI: Soft, non-tender, with normal bowel sounds. No distension or tympany. No guarding or rebound. No evidence of tenderness throughout. Back: No spinal tenderness. No costovertebral tenderness. There is sacral decubitus ulcer that is covered by the wound VAC. Skin: Warm, dry with normal turgor. Normal color with no rashes, no lesions, and no evidence of cellulitis. MS/ Extremity: Pulses equal, no cyanosis. Neurovascular intact. Full, normal range of motion. Neuro: Awake and alert, GCS 15, oriented to person, place, time, and situation. Cranial nerves II-XII grossly intact. Motor strength 5/5 in all extremities. Sensory grossly intact. Psych: Awake, alert, with orientation to person, place and time. Behavior, mood, and affect are within normal limits 05/11 00:44 ECG was reviewed by the Attending Physician. EKG time 2128. Normal sinus rhythm at [facility] the rate of 88 Vital Signs: 05/10 20:49 BP 157 / 75; Pulse 95; Resp 19 S; Temp 98.2(O); Pulse Ox 95% on R/A; Weight 167.83 kg; 7 Height 6 ft. 3 in. ; Pain 9/10; 22:41 BP 126 / 61; Pulse 91; Resp 19 S; Pulse Ox 93% on R/A; [facility] 23:30 BP 125 / 64; Pulse 86; Resp 19; Pulse Ox 94% ; [facility] 05/11 00:23 BP 127 / 61; Pulse 89; Resp 18; Pulse Ox 95% ; [facility] 05/10 20:49 Body Mass Index 46.25 (167.83 kg, 190.5 cm) [facility] 05/10 20:49 Pain Scale: Adult [facility] MDM: 05/10 20:47 Patient medically screened. [facility] 05/11 00:45 Differential Diagnosis altered mental status, sepsis, flu, COPD exacerbation. Data 4 reviewed: vital signs, nurses notes, EMS record, old medical records, lab test result(s), EKG, radiologic studies, plain films. Consideration of Admission/Observation Escalation of care including admission/observation considered. ED course: Patient has normal pCO2 39.4. Patient has improved significantly after management here in the ER. Patient was prescribed albuterol, prednisone, Tylenol No. 4 as needed cough.. Stable for discharge home. Advised to discontinue tobacco smoking. . 05/10 20:45 Order name: Basic Metabolic Panel; Complete Time: 23:54 [facility] 05/10 20:45 Order name: CBC with Diff; Complete Time: 23:54 [facility] 05/10 20:45 Order name: LFT's; Complete Time: 23:54 [facility] 05/10 20:45 Order name: Magnesium; Complete Time: 23:54 [facility] 05/10 20:45 Order name: NT PRO-BNP; Complete Time: 23:54 [facility] 05/10 20:45 Order name: PT-INR; Complete Time: 21:49 [facility] 05/10 20:45 Order name: Troponin HS; Complete Time: 23:54 [facility] 05/10 20:45 Order name: Influenza Screen (a \T\ B); Complete Time: 23:54 [facility] 05/10 20:45 Order name: COVID-19 SARS RT PCR; Complete Time: 23:54 4 05/10 20:47 Order name: ABG; Complete Time: 21:49 [facility] 05/10 20:45 Order name: XRAY Chest (1 view); Complete Time: 23:54 4 05/10 20:45 Order name: EKG; Complete Time: 20:46 [facility] 05/10 20:45 Order name: Cardiac monitoring; Complete Time: 21:00 [facility] 05/10 20:45 Order name: EKG - Nurse/Tech; Complete Time: 21:36 4 05/10 20:45 Order name: IV Saline Lock; Complete Time: :36 [facility] 05/10 20:45 Order name: Labs collected and sent; Complete Time: :36 [facility] 05/10 20:45 Order name: O2 Per Protocol; Complete Time: 21:00 [facility] 05/10 20:45 Order name: O2 Sat Monitoring; Complete Time: :00 EC:44 Rate is 88 beats/min. Rhythm is regular, Normal Sinus Rhythm. QRS [place] is Normal. [place] sp4 interval is normal. QRS interval is normal. QT interval is normal. No Q waves. T waves are Normal. No ST changes noted. Clinical impression: Normal ECG. Interpreted by me. Reviewed by me. Administered Medications: 05/10 21:36 Drug: Methocarbamol PO 1500 mg PO once Route: PO; jw7 05/11 00:22 Follow up: Response: Marked relief of symptoms j05/10 21:37 Drug: morphine IVP or IV 4 mg IVP once over 4 mins Route: IVP; Infused Over: 4 mins; jw7 Site: left antecubital; 21:37 Drug: Ondansetron IVP 4 mg IVP once; over 2 minutes Route: IVP; Site: left antecubital; jw7 21:37 Drug: DuoNeb Nebulize (3:1) (2.5 mg - 0.5 mg) 3 ml Nebulizer once Route: Nebulizer; jw7 21:57 Drug: morphine IVP or IV 4 mg IVP once over 4 mins Route: IVP; Infused Over: 4 mins; jw7 Site: left antecubital; 05/11 00:22 Follow up: Response: Marked relief of symptoms jj7 00:22 Drug: predniSONE PO 60 mg PO once Route: PO; jj7 00:22 Follow up: Response: No adverse reaction jj7 Disposition Summary: 05/10/23 23:58 Discharge Ordered Notes: Location: Home sp4 Problem: new sp4 Symptoms: have improved sp4 Condition: Stable sp4 Diagnosis - Acute bronchitis, unspecified sp4 - COPD/ Chronic obstructive pulmonary disease with (acute) exacerbation sp4 - Acute pleuritic chest pain sp4 Followup: sp4 - With: Private Physician - When: 7 - 10 days - Reason: Recheck today's complaints Discharge Instructions: - Discharge Summary Sheet sp4 - Acute Bronchitis, Adult sp4 Forms: - Patient Portal Instructions sp4 Prescriptions: - acetaminophen-codeine 300-60 mg Oral tablet - take 1 tablet ORAL route every 6 hours PRN cough; 20 tablet; Refills: 0, sp4 Product Selection Permitted - Albuterol Sulfate 2.5 mg /3 mL (0.083 %) Inhalation Solution for Nebulization - inhale 1 unit NEBULIZATION route every 4 hours As needed Use every 4 hours PRN sp4 wheezing or cough , nebulized, Dispense 50 vials; 50 unit; Refills: 0, Product Selection Permitted - Prednisone 20 mg Oral Tablet - take 2 tablets ORAL route once daily for 5 days; 10 tablet; Refills: 0, Product sp4 Selection Permitted Signatures: Dispatcher [employer] Eda Clifford RN RN jw7 Mode Ziegler RN RN jj7 Carmine Coy MD MD sp4
[2023-05-11 07:21] VITALS: BP 157/75; TEMP 98.2; O2SAT 95
--- NOTE | 2023-05-11 17:49 | EKG ---
Test Date: 2023-05-10 Test Time: 21:29:29 Pantograph I Engraver: ERIN MEASUREMENT RESULTS: Intervals: Rate: 88 [place]: 156 QRSD: 96 QT: 366 QTc: 442 [place]: P: 62 [place]: 156 QRS: 55 T: 54 INTERPRETIVE STATEMENTS: Normal sinus rhythm Normal ECG Compared to ECG 04/09/2023 04:18:20 No significant changes Electronically Signed On 05-11-23 17:48:19 [employer] CLE[employer]ER by Dusty Alva
== END ==
LOC: ER 20:38
DX: J20.9 Acute bronchitis, unspecified (principal); J44.1 Chronic obstructive pulmonary disease with (acute) exacerbation; R07.89 Other chest pain; F17.210 Nicotine dependence, cigarettes, uncomplicated; Z88.0 Allergy status to penicillin; Z88.8 Allergy status to other drugs, medicaments and biological substances; Z11.52 Encounter for screening for COVID-19
CPT/HCPCS: 93005; 85025; 80048; 36415; 83735; 85610; 80076; 84484; 83880; 87635; 87804 ×2; 71045; 94640; 82805; 96375; 96374; 99285; J7613; J7644; J2405

== ENCOUNTER → 2023-07-04 | Emergency (ER) | payer OTHER ==
[~2023-07-04] MED LIST changes: -ALBUTEROL 2.5 MG/3 ML NEB SOL ONE; +HYDROMORPHONE HCL 1 MG/ML INJ ONE; -IPRATROPIUM BROM 0.5MG/2.5ML ONE; +NA CHLORIDE 0.9% 1,000 ML ONE; +dexAMETHasone 10 MG/ML VIAL ONE; -methocarbamoL 750 MG TAB ONE; -predniSONE 20 MG TAB ONE
--- OUTSIDE RECORDS SUMMARY | 2023-07-04 21:14 | XMS REPORT | Continuity of Care Document ---
Author Name Unknown Address [address] [facility] [address] [id number] [facility] [address] [facility]. 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 Role Phone Tiffanie Freya Primary Care Physician [phone] SUSSY FROST Attending Clinician SUSSY Kumar Attending Clinician Sussy Kumar MD Attending Clinician EVA RAMIREZ Attending Clinician Unavailable Eva Ramirez MD Attending Clinician [phone] Doctor Unassigned, [place] Attending Clinician U Kane Rabago MD Attending Clinician [phone] KANE HUFFMAN Attending Clinician UnavailALBER De Los Santos Attending Clinician ANA Lord Attending Clinician Unavailable LESTER ARTEAGA Attending Clinician Unavailasa streeter ERICKSON_R Attending Clinician Unavailable Werner Zavaleta Attending Clinician [phone] EVA RAMIREZ Admitting Clinician Unavailable KANE HUFFMAN Admitting Clinician Gerhard GLOVER Admitting Clinician Unavailable Payers Payer Name Policy Type Policy Number Effective Date Expirati on Date Source ANNETTE OLSON [facility] [id number] 00:00:00 [employer] MCARE ADV CHOICE PPO [id number] 2021 00:00:[address] [facility] (MEDICARE REPLACEMENT/[place] GE - PPO) [id number] Problems Condition Name Condition Details Condition Category Status Onset Date Resolution Date Last Treatment Date Treating Clinician Comments Source Bipolar disorder Bipolar Disorder Problem Active 05-08 00:00: 00 [place] Depressive disorder Depressive Disorder Problem [facility] Attention deficit hyperactiv ity disorder Attention Deficit Hyperactiv ity Disorder Problem Active 05-08 00:00: 00 [facility] Hypertensi ve disorder Hypertensi ve Disorder Problem Active 05-08 00:00: 00 [facility] Chronic obstructiv e lung disease Chronic Obstructiv e Lung Disease Problem Active 05-08 00:00: 00 [facility] Crohn's disease Crohn's Disease Problem Active 05-08 00:00: 00 [place] [facility] Diverticul itis Diverticul itis Problem Active 05-08 00:00: 00 [facility] Osteoarthr itis Osteoarthr itis Problem Active 05-08 00:00: 00 [facility] History of intravenou s drug abuse History of Intravenou s Drug Abuse Problem Active [facility] No known active problems No known active problems Disease [facility] Allergies, Adverse Reactions, Alerts Allergy Name Allergy Type Status Severity Reaction(s) Onset Date Inactive Date Treating Clinician Comments Source Ciproflo xacin Propensi ty to adverse reaction s Active Other - See comments 07-24 00:00: 00 [facility] CIPROFLO XACIN DRUG INGREDI Active Other-Cmnt 07-24 00:00: 00 [facility] Aspirin Propensi ty to adverse reaction s Active Rash 2014-04 0 00:00: 00 [facility] Ibuprofe n Propensi ty to adverse reaction s Active Rash 2014-04 0 00:00: 00 [facility] Penicill in Propensi ty to adverse reaction s Active Unknown - See comments 2014-04 00:00: 00 [facility] Ketorola c Propensi ty to adverse reaction s Active Unknown - See comments 2014-04 00:00: 00 [facility] ASPIRIN DRUG INGREDI Active Rash 2014-04 0 00:00: 00 [facility] IBUPROFE N DRUG INGREDI Active Rash 2014-04 0 00:00: 00 [facility] PENICILL IN DRUG INGREDI Active Unknown-Cmnt 2014-04 0 00:00: 00 [facility] KETOROLA C DRUG INGREDI Active Unknown-Cmnt 2014-04 0 00:00: 00 [facility] TORADOL Allergy to substanc e Active Nausea [facility] Aspirin Allergy to substanc e Active Nausea [facility] Ibuprofe n Allergy to substanc e Active Nausea [facility] PENICILL INS Allergy to substanc e Active Hives [facility] Social History Social Habit Start Date Stop Date Quantity Comments Source Gender identity [facility] Exposure to SARS-CoV-2 (event) Not sure [facility] History of tobacco use Cigarette Smoker [facility] History of Social function 2018-10-27 00:00:00 2018-10-27 00:00:00 [facility] Cigarette pack-years 2018-07-11 00:00:00 2018-07-11 00:00:00 [facility] Tobacco use and exposure 2018-07-11 00:00:00 2018-07-11 00:00:00 User of smokeless tobacco [facility] Cigarettes smoked current (pack per day) - Reported 2018-07-11 00:00:00 2018-07-11 00:00:00 [facility] Sex Assigned At 1975 00:00:00 1975 00:00:00 [facility] Smoking Status Start Date Stop Date Source Smokes tobacco daily 2018-07-11 00:00:00 [facility] Medications Ordered Medication Name Filled Medication Name Start Date Stop Date Current Medication? Ordering Clinician Indication Dosage Frequency Signature (SIG) Comments Components Source HYDROcodone -acetaminop hen (NORCO) 10-325 mg tablet 1 tablet 2022-04 12:15: 00 04-15 11:15 :00 No 1{tbl} 1 tablet, Oral, ONCE NOW, 1 dose, On [facility] 04/15/23 at 0615, Routine [facility] magnesium sulfate in water 2 gram/50 mL (4 %) infusion 2 g 2022-04 12:00: 00 04-15 23:59 :00 Yes 2g 2 g, IV Piggyback, Administer over 60 Minutes, ONCE, 1 dose, On Yolanda 04/15/23 at 0600, Routine [facility] ipratropium -albuteroL (DUONEB) 0.5 mg-3 mg(2.5 mg base)/3 mL nebulizer solution 3 mL 2022-04 11:15: 00 Yes 3mL 3 mL, Inhalation , QID, First dose on Yolanda 04/15/23 at 0515, Until Discontinu ed, Routine [facility] ipratropium -albuteroL (DUONEB) 0.5 mg-3 mg(2.5 mg base)/3 mL nebulizer solution 3 mL 2022-04 10:30: 00 04-15 09:40 :00 No 3mL 3 mL, Inhalation , ONCE, 1 dose, On [facility] 04/15/23 at 0430, Routine [facility] methylpredn isolone sod succ (SOLU-MEDRO L) injection 125 mg 2022-04 10:30: 00 04-15 09:34 :00 No 125mg 125 mg, Intravenou s, ONCE, 1 dose, On Yolanda 04/15/23 at 0430, 2 mL [facility] cyclobenzap rine 10 mg tablet 2022-04 05:28: 16 04-15 00:00 :00 No cyclobenza yann 10 mg tablet Take 1 tablet twice a day by oral route as directed for 28 days. [facility] albuterol 90 mcg/actuati on inhaler 2022-04 00:00: 00 Yes [id number] 2{puff} Inhale 2 Puffs every 4 (four) hours as needed for Wheezing or Shortness of Breath. [facility] predniSONE 20 mg tablet 2022-04 00:00: 00 Yes [id number] TAKE ONE TABLET ORALLY TWICE A DAY FOR FIVE DAYS [facility] albuterol 2.5 mg /3 mL (0.083 %) nebulizer solution 2022-04 00:00: 00 Yes [id number] 2.5mg Inhale 3 mL every 6 (six) hours as needed for Wheezing, Shortness of Breath, Bronchospa sm or Chest tightness. May also nebulize one extra every 6 hours. [facility] albuterol 90 mcg/actuati on inhaler 2022-04 00:00: 00 Yes [id number] 2{puff} Inhale 2 Puffs every 4 (four) hours as needed for Wheezing or Shortness of Breath. [facility] predniSONE 20 mg tablet 2022-04 00:00: 00 Yes [id number] TAKE ONE TABLET ORALLY TWICE A DAY FOR FIVE DAYS [facility] albuterol 2.5 mg /3 mL (0.083 %) nebulizer solution 2022-04 00:00: 00 Yes [id number] 2.5mg Inhale 3 mL every 6 (six) hours as needed for Wheezing, Shortness of Breath, Bronchospa sm or Chest tightness. May also nebulize one extra every 6 hours. [facility] codeine-gua ifenesin 10-100 mg/5 mL oral solution 2022-04 2-28 00:00: 00 04-23 05:59 :00 Yes 10mL Take 10 mL by mouth every 6 (six) hours as needed for Cough for up to 7 days. Indication s: COUGH [facility] methocarbam oL (ROBAXIN) injection 1,000 mg 11-22 03:00: 00 Yes 1000mg 1,000 mg, Intravenou s, Q8H, First dose on 11/21/22 at 2200, Until Discontinu ed, Routine [facility] HYDROmorpho ne (DILAUDID) injection 1 mg 11-21 20:45: 00 11-21 22:14 :00 No 1mg 1 mg, Slow IV Push, ONCE, 1 dose, On 11/21/22 at 1545, SAM
Us e approved by (Faculty): ADC PROVIDER [facility] acetaminoph en ADULT (OFIRMEV) injection 1,000 mg 11-21 20:00: 00 11-21 20:02 :00 No 1000mg 1,000 mg, IV Infusion, at 400 mL/hr Administer over 15 Minutes, ONCE, 1 dose, On 11/21/22 at 1500, Routine
Indicatio n: Non-periop erative Patient
Approved by: Per Policy (NPO Status) [facility] morpHINE (4 mg/mL) injection 4 mg 11-21 20:00: 00 11-21 19:44 :00 No 4mg 4 mg, Slow IV Push, ONCE, 1 dose, On 11/21/22 at 1500, SAM [facility] cyclobenzap rine 10 mg tablet 11-21 17:05: 02 Yes cyclobenza yann 10 mg tablet Take 1 tablet twice a day by oral route as directed for 28 days. [facility] cyclobenzap rine 10 mg tablet 11-21 17:05: 02 Yes cyclobenza yann 10 mg tablet Take 1 tablet twice a day by oral route as directed for 28 days. [facility] acetaminoph en-codeine 300-30 mg tablet 11-21 00:00: 00 Yes [id number] 1{tbl} Take 1 tablet by mouth every 6 (six) hours as needed for Pain (scale 4-6) for up to 15 doses. Indication s: acute pain [facility] acetaminoph en-codeine 300-30 mg tablet 11-21 00:00: 00 Yes [id number] 1{tbl} Take 1 tablet by mouth every 6 (six) hours as needed for Pain (scale 4-6) for up to 15 doses. Indication s: acute pain [facility] acetaminoph en-codeine 300-30 mg tablet 11-21 00:00: 00 Yes [id number] 1{tbl} Take 1 tablet by mouth every 6 (six) hours as needed for Pain (scale 4-6) for up to 15 doses. Indication s: [facility]-30 mg tablet 11-21 00:00: 00 Yes [id number] 1{tbl} Take 1 tablet by mouth every 6 (six) hours as needed for Pain (scale 4-6) for up to 15 doses. Indication s: acute pain [facility] cyclobenzap rine 10 mg tablet 11-21 00:00: 00 11-27 04:59 :00 No [id number] 10mg Take 1 tablet by mouth in the morning and 1 tablet at noon and 1 tablet in the evening. Do all this for 5 days. [facility] clindamycin in 5 % dextrose (CLEOCIN) 900 mg/50 mL IV piggyback RTU 900 mg 2020-04 06:15: 00 02-13 05:51 :00 No 900mg 900 mg, IV Piggyback, ONCE, 1 dose, On Yolanda 02/13/21 at 0115, Administer over 30 Minutes, 50 mL
Reas on for Anti-Infec tive: Documented Infection< br>Documen sangeetha Infection Site: Skin / Soft Tissue
Duration of Therapy: Other (see Comments)< br>Restric sangeetha use approved by: [employer] PROVID[employer] [facility] FENTanyl PF (SUBLIMAZE (PF)) injection 50 mcg 2020-04 05:15: 00 02-13 04:10 :00 No 50ug 50 mcg, Slow IV Push, ONCE, 1 dose, On Yolanda 02/13/21 at 0015, Routine [facility] FENTanyl PF (SUBLIMAZE (PF)) injection 50 mcg 2020-04 04:39: 00 02-13 04:45 :00 No 50ug 50 mcg, Slow IV Push, ONCE, 1 dose, On Wed02/12/21 at 2345, STAT [facility] clindamycin 300 mg capsule 2020-04 00:00: 00 Yes [id number] 300mg Take 1 capsule by mouth 4 (four) times daily. [facility] gabapentin 300 mg capsule 2020-04 00:00: 00 Yes [id number] 300mg Take 1 capsule by mouth 3 (three) times daily. [facility] clindamycin 300 mg capsule 2020-04 00:00: 00 Yes [id number] 300mg Take 1 capsule by mouth 4 (four) times daily. [facility] gabapentin 300 mg capsule 2020-04 00:00: 00 Yes [id number] 300mg Take 1 capsule by mouth 3 (three) times daily. [facility] clindamycin 300 mg capsule 2020-04 00:00: 00 Yes [id number] 300mg Take 1 capsule by mouth 4 (four) times daily. [facility] clindamycin 300 mg capsule 2020-04 00:00: 00 Yes [id number] 300mg Take 1 capsule by mouth 4 (four) times daily. [facility] clindamycin 300 mg capsule 2020-04 00:00: 00 Yes [id number] 300mg Take 1 capsule by mouth 4 (four) times daily. [facility] gabapentin 300 mg capsule 2020-04 00:00: 00 Yes [id number] 300mg Take 1 capsule by mouth 3 (three) times daily. [facility] gabapentin 300 mg capsule 2020-04 00:00: 00 04-15 00:00 :00 No [id number] 300mg Take 1 capsule by mouth 3 (three) times daily. [facility] proMETHazin e 25 mg tablet 07-24 00:00: 00 Yes [id number] 25mg Take 1 tablet by mouth every 6 (six) hours as needed for Nausea and Vomiting (N/V). [facility] traMADOL (ULTRAM) 50 mg tablet 07-24 00:00: 00 Yes [id number] 50mg Take 1 tablet by mouth every 6 (six) hours as needed for Pain (scale 4-6). [facility] proMETHazin e 25 mg tablet 07-24 00:00: 00 Yes [id number] 25mg Take 1 tablet by mouth every 6 (six) hours as needed for Nausea and Vomiting (N/V). [facility] traMADOL (ULTRAM) 50 mg tablet 07-24 00:00: 00 Yes [id number] 50mg Take 1 tablet by mouth every 6 (six) hours as needed for Pain (scale 4-6). [facility] proMETHazin e 25 mg tablet 07-24 00:00: 00 Yes [id number] 25mg Take 1 tablet by mouth every 6 (six) hours as needed for Nausea and Vomiting (N/V). [facility] traMADOL (ULTRAM) 50 mg tablet 07-24 00:00: 00 Yes [id number] 50mg Take 1 tablet by mouth every 6 (six) hours as needed for Pain (scale 4-6). [facility] traMADOL (ULTRAM) 50 mg tablet 07-24 00:00: 00 Yes [id number] 50mg Take 1 tablet by mouth every 6 (six) hours as needed for Pain (scale 4-6). [facility] traMADOL (ULTRAM) 50 mg tablet 07-24 00:00: 00 Yes [id number] 50mg Take 1 tablet by mouth every 6 (six) hours as needed for Pain (scale 4-6). [facility] proMETHazin e 25 mg tablet 07-24 00:00: 00 Yes [id number] 25mg Take 1 tablet by mouth every 6 (six) hours as needed for Nausea and Vomiting (N/V). [facility] traMADOL (ULTRAM) 50 mg tablet 07-24 00:00: 00 Yes [id number] 50mg Take 1 tablet by mouth every 6 (six) hours as needed for Pain (scale 4-6). [facility] proMETHazin e 25 mg tablet 07-24 00:00: 00 04-15 00:00 :00 No [id number] 25mg Take 1 tablet by mouth every 6 (six) hours as needed for Nausea and Vomiting (N/V). [facility] meloxicam 7.5 mg tablet 07-11 09:32: 26 Yes meloxicam 7.5 mg tablet [facility] ketorolac 10 mg tablet 07-11 09:32: 26 Yes 10mg Take 10 mg by mouth. [facility] budesonide- formoterol 160-4.5 mcg/actuati on inhaler 07-11 09:32: 26 Yes Symbicort 160 mcg-4.5 mcg/actuat ion HFA aerosol inhaler [facility] meloxicam 7.5 mg tablet 07-11 09:32: 26 Yes meloxicam 7.5 mg tablet [facility] ketorolac 10 mg tablet 07-11 09:32: 26 Yes 10mg Take 10 mg by mouth. [facility] budesonide- formoterol 160-4.5 mcg/actuati on inhaler 07-11 09:32: 26 Yes Symbicort 160 mcg-4.5 mcg/actuat ion HFA aerosol inhaler [facility] cyclobenzap rine 10 mg tablet 07-11 09:32: 26 Yes cyclobenza yann 10 mg tablet Take 1 tablet twice a day by oral route as directed for 28 days. [facility] meloxicam 7.5 mg tablet 07-11 09:32: 26 Yes meloxicam 7.5 mg tablet [facility] ketorolac 10 mg tablet 07-11 09:32: 26 Yes 10mg Take 10 mg by mouth. [facility] budesonide- formoterol 160-4.5 mcg/actuati on inhaler 07-11 09:32: 26 Yes Symbicort 160 mcg-4.5 mcg/actuat ion HFA aerosol inhaler [facility] meloxicam 7.5 mg tablet 07-11 09:32: 26 Yes meloxicam 7.5 mg tablet [facility] ketorolac 10 mg tablet 07-11 09:32: 26 Yes 10mg Take 10 mg by mouth. [facility] budesonide- formoterol 160-4.5 mcg/actuati on inhaler 07-11 09:32: 26 Yes Symbicort 160 mcg-4.5 mcg/actuat ion HFA aerosol inhaler [facility] meloxicam 7.5 mg tablet 07-11 09:32: 26 Yes meloxicam 7.5 mg tablet [facility] ketorolac 10 mg tablet 07-11 09:32: 26 Yes 10mg Take 10 mg by mouth. [facility] budesonide- formoterol 160-4.5 mcg/actuati on inhaler 07-11 09:32: 26 Yes Symbicort 160 mcg-4.5 mcg/actuat ion HFA aerosol inhaler [facility] cyclobenzap rine 10 mg tablet 07-11 09:32: 26 Yes cyclobenza yann 10 mg tablet Take 1 tablet twice a day by oral route as directed for 28 days. [facility] meloxicam 7.5 mg tablet 07-11 09:32: 26 Yes meloxicam 7.5 mg tablet [facility] ketorolac 10 mg tablet 07-11 09:32: 26 Yes 10mg Take 10 mg by mouth. [facility] budesonide- formoterol 160-4.5 mcg/actuati on inhaler 07-11 09:32: 26 Yes Symbicort 160 mcg-4.5 mcg/actuat ion HFA aerosol inhaler [facility] HYDROcodone -acetaminop hen (NORCO) 10-325 mg tablet 07-11 09:22: 33 Yes 2{tbl} Take 2 Tabs by mouth daily. [facility] HYDROcodone -acetaminop hen (NORCO) 10-325 mg tablet 07-11 09:22: 33 Yes 2{tbl} Take 2 Tabs by mouth daily. [facility] HYDROcodone -acetaminop hen (NORCO) 10-325 mg tablet 07-11 09:22: 33 Yes 2{tbl} Take 2 Tabs by mouth daily. [facility] HYDROcodone -acetaminop hen (NORCO) 10-325 mg tablet 07-11 09:22: 33 Yes 2{tbl} Take 2 Tabs by mouth daily. [facility] HYDROcodone -acetaminop hen (NORCO) 10-325 mg tablet 07-11 09:22: 33 Yes 2{tbl} Take 2 Tabs by mouth daily. [facility] HYDROcodone -acetaminop hen (NORCO) 10-325 mg tablet 07-11 09:22: 33 Yes 2{tbl} Take 2 Tabs by mouth daily. [facility] albuterol 90 mcg/actuati on inhaler 07-11 00:00: 00 Yes [id number] 2{puff} Inhale 2 Puffs every 6 (six) hours as needed for Wheezing or Shortness of Breath. [facility] albuterol 90 mcg/actuati on inhaler 07-11 00:00: 00 Yes [id number] 2{puff} Inhale 2 Puffs every 6 (six) hours as needed for Wheezing or Shortness of Breath. [facility] albuterol 90 mcg/actuati on inhaler 07-11 00:00: 00 Yes [id number] 2{puff} Inhale 2 Puffs every 6 (six) hours as needed for Wheezing or Shortness of Breath. [facility] albuterol 90 mcg/actuati on inhaler 07-11 00:00: 00 Yes [id number] 2{puff} Inhale 2 Puffs every 6 (six) hours as needed for Wheezing or Shortness of Breath. [facility] albuterol 90 mcg/actuati on inhaler 07-11 00:00: 00 Yes [id number] 2{puff} Inhale 2 Puffs every 6 (six) hours as needed for Wheezing or Shortness of Breath. [facility] albuterol 90 mcg/actuati on inhaler 07-11 00:00: 00 Yes [id number] 2{puff} Inhale 2 Puffs every 6 (six) hours as needed for Wheezing or Shortness of Breath. [facility] CELECOXIB (CELEBREX ORAL) 2014-04 0 16:33: 56 Yes Take by mouth. [facility] CELECOXIB (CELEBREX ORAL) 2014-04 0 16:33: 56 Yes Take by mouth. [facility] CELECOXIB (CELEBREX ORAL) 2014-04 0 16:33: 56 Yes Take by mouth. [facility] CELECOXIB (CELEBREX ORAL) 2014-04 0 16:33: 56 Yes Take by mouth. [facility] CELECOXIB (CELEBREX ORAL) 2014-04 0 16:33: 56 Yes Take by mouth. [facility] CELECOXIB (CELEBREX ORAL) 2014-04 0 16:33: 56 Yes Take by mouth. [facility] albuterol sulfate 2.5 mg/3 mL (0.083 %) solution for nebulizatio n Take 2 vials daily albuterol sulfate 2.5 mg/3 mL (0.083 %) solution for nebulizatio n Take 2 vials daily No albuterol sulfate 2.5 mg/3 mL (0.083 %) solution for nebulizati on Take 2 vials daily [facility] albuterol sulfate HFA 90 mcg/actuati on aerosol inhaler 2 puffs Q4-6 hrs albuterol sulfate HFA 90 mcg/actuati on aerosol inhaler 2 puffs Q4-6 hrs No albuterol sulfate HFA 90 mcg/actuat ion aerosol inhaler 2 puffs Q4-6 hrs [facility] alprazolam 1 mg tablet TAKE ONE (1) TABLET(S) BY MOUTH ONCE A DAY NEEDED. alprazolam 1 mg tablet TAKE ONE (1) TABLET(S) BY MOUTH ONCE A DAY NEEDED. No alprazolam 1 mg tablet TAKE ONE (1) TABLET(S) BY MOUTH ONCE A DAY NEEDED. [facility] clindamycin HCl 300 mg capsule TAKE 1 CAPSULE BY MOUTH FOUR TIMES DAILY clindamycin HCl 300 mg capsule TAKE 1 CAPSULE BY MOUTH FOUR TIMES DAILY No clindamyci n HCl 300 mg capsule TAKE 1 CAPSULE BY MOUTH FOUR TIMES DAILY [facility] dextroamphe tamine-amph etamine 20 mg tablet TAKE ONE (1) TABLET(S) BY MOUTH EVERY MORNING. dextroamphe tamine-amph etamine 20 mg tablet TAKE ONE (1) TABLET(S) BY MOUTH EVERY MORNING. No dextroamph etamine-am phetamine 20 mg tablet TAKE ONE (1) TABLET(S) BY MOUTH EVERY MORNING. [facility] prednisone 20 mg tablet TAKE 1 TABLET BY MOUTH DAILY. prednisone 20 mg tablet TAKE 1 TABLET BY MOUTH DAILY. No prednisone 20 mg tablet TAKE 1 TABLET BY MOUTH DAILY. [facility] Vital Signs Vital Name Observation Time Observation Value Comments S ource Heart rate 2023-04-15 11:17:00 94 /min [facility] Body temperature 2023-04-15 11:17:00 36.78 Char [facility] Respiratory rate 2023-04-15 11:17:00 18 /min [facility] Oxygen saturation in Arterial blood by Pulse oximetry 2023-04-15 11:17:00 97 /min [facility] Systolic blood pressure 2023-04-15 11:07:00 130 mm[Hg] [facility] Diastolic blood pressure 2023-04-15 11:07:00 118 mm[Hg] [facility] Body height 2023-04-15 09:11:00 190.5 cm [facility] Body weight 2023-04-15 09:11:00 149.687 kg [facility] BMI 2023-04-15 09:11:00 41.25 kg/m2 [facility] Systolic blood pressure 2022-11-21 22:14:00 122 mm[Hg] [facility] Diastolic blood pressure 2022-11-21 22:14:00 82 mm[Hg] [facility] Heart rate 2022-11-21 22:14:00 76 /min [facility] Respiratory rate 2022-11-21 22:14:00 16 /min [facility] Oxygen saturation in Arterial blood by Pulse oximetry 2022-11-21 22:14:00 96 /min [facility] Body temperature 2022-11-21 18:37:00 36.83 Char [facility] Body height 2022-11-21 18:37:00 190.5 cm [facility] Body weight 2022-11-21 18:37:00 154.223 kg [facility] BMI 2022-11-21 18:37:00 42.50 kg/m2 [facility] BP Diastolic 2021-05-08 00:00:00 82 mm[Hg] [facility] Height 2021-05-08 00:00:00 74 [in_i] [facility] BMI (Body Mass Index) 2021-05-08 00:00:00 41.1 kg/m2 [facility] BP Systolic 2021-05-08 00:00:00 124 mm[Hg] [facility] Body Weight 2021-05-08 00:00:00 5120 [oz_av] [facility] Systolic blood pressure 2021-02-13 05:30:00 115 mm[Hg] [facility] Diastolic blood pressure 2021-02-13 05:30:00 83 mm[Hg] [facility] Heart rate 2021-02-13 05:30:00 78 /min [facility] Respiratory rate 2021-02-13 05:30:00 19 /min [facility] Oxygen saturation in Arterial blood by Pulse oximetry 2021-02-13 05:30:00 97 /min [facility] Body temperature 2021-02-13 03:30:00 36.94 Char [facility] Body height 2021-02-13 03:30:00 188 cm [facility] Body weight 2021-02-13 03:30:00 137.939 kg [facility] BMI 2021-02-13 03:30:00 39.04 kg/m2 [facility] Procedures Procedure Date / Time Performed Performing Clinicia n Source XR CHEST 1 VW 2023-04-15 09:40:04 Eva Ramirez [facility] TROPONIN I 2023-04-15 09:32:00 Eva Ramirez [facility] COMP. METABOLIC PANEL ([id number]) 2023-04-15 09:32:00 Eva Ramirez [facility] CBC WITH DIFF 2023-04-15 09:32:00 Eva Ramirez [facility] N-TERMINAL PRO-BNP 2023-04-15 09:32:00 Eva Ramirez [facility] NOTICE OF PRIVACY PRACTICES 2023-04-15 08:54:44 Doctor Unassigned, [place] [facility] CONSENT/REFUSAL FOR DIAGNOSIS AND TREATMENT 2023-04-15 08:54:28 Doctor Unassigned, [place] [facility] CT LUMBAR SPINE WO CONTRAST 2022-11-21 20:32:53 Kane Huffman A [facility] CT THORAX WO CONTRAST 2022-11-21 20:32:53 Chaitanya Huffman A [facility] CONSENT/REFUSAL FOR DIAGNOSIS AND TREATMENT 2022-11-21 18:27:20 Doctor Unassigned, [place] [facility] URINALYSIS 2021-02-13 04:20:00 Eva Ramirez [facility] BASIC METABOLIC PANEL (NA, K, CL, CO2, GLUCOSE, BUN, CREATININE, CA) 2021-02-13 04:08:00 Eva Ramirez [facility] CBC WITH DIFF 2021-02-13 04:08:00 Eva Ramirez [facility] NOTICE OF PRIVACY PRACTICES 2021-02-13 03:11:24 Doctor Unassigned, [place] [facility] CONSENT/REFUSAL FOR DIAGNOSIS AND TREATMENT 2021-02-13 03:10:40 Doctor Unassigned, [place] [facility] Procedure on Hand [place] [facility] Repair of Testis [place] [facility] Repair of Ankle [place] [facility] Encounters Start Date/Time End Date/Time Encounter Type Admission Type Attending Clinicians Care Facility Care Department Encounter ID Source 2023-06-23 10:00:00 2023-06-23 10:00:00 Outpatient R SUSSY FROST STRAHIL [facility] [id number] [facility] 2023-05-22 00:00:00 2023-05-22 00:00:00 Telephone Sussy Frost [facility] 1.84.114 350.1.13.10 4.2.7.2.686 [id number] [facility] 2023-04-15 03:08:00 2023-04-15 05:41:00 Emergency X CARLITOSRAJESHKELLYEVA [facility] ERT [id number] [facility] 2023-04-15 03:08:00 2023-04-15 05:41:00 Emergency Adi Ramirezbenson S [facility] 1.84.114 350.1.13.10 4.2.7.2.686 [id number] [facility] 2023-04-15 00:00:00 2023-04-15 00:00:00 Orders Only Doctor Unassigned, [place] [facility] 1.84.114 350.1.13.10 4.2.7.2.686 [id number] [facility] 2022-11-21 13:42:00 2022-11-21 17:40:00 Emergency Kane Huffman A [facility] 1.840.114 350.1.13.10 4.2.7.2.686 [id number] [facility] 2022-11-21 13:42:00 2022-11-21 17:40:00 Emergency X KANE HUFFMAN [facility] ERT [id number] [facility] 2022-01-07 14:00:00 2022-01-07 14:00:00 Outpatient R FRANKLIN ALBER [facility] [id number] [facility] 2022-01-05 10:00:00 2022-01-05 10:00:00 Outpatient R OSIRISJERILYNBHAVNARANDOLPH [facility] [id number] [facility] 2021-07-30 15:00:00 2021-07-30 15:00:00 Outpatient R LESTER ARTEAGA [facility] [id number] [facility] 2021-05-12 08:40:00 2021-05-12 08:40:00 Outpatient ERICKSON_R [facility] [address] [place] [facility] 2021-05-09 09:40:00 2021-05-09 09:40:00 Outpatient ERSTACION_R [facility] 0[facility] [place] [facility] 2021-05-08 06:02:00 2021-05-08 06:02:00 Outpatient ERICKSON_R [facility] 0[facility] [place] [facility] 2021-05-08 00:00:00 2021-05-08 00:00:00 Werner Zavaleta, DO: [address] , [place] [address] , Ph. [facility], DR. ZAVALETA [id number] [place] [facility] 2021-05-08 00:00:00 2021-05-08 00:00:00 Outpatient Werner Zavaleta [facility] [id number] 2021-02-12 22:35:00 2021-02-13 01:24:00 Emergency Eva Ramirez [facility] 1.2.840.114 350.1.13.10 4.2.7.2.686 [id number] [facility] 2021-02-12 22:35:00 2021-02-13 01:24:00 Emergency X EVA RAMIREZ [facility] ERT [id number] [facility] 2021-02-12 00:00:00 2021-02-12 00:00:00 Orders Only Doctor Unassigned, [place] [facility] 1.2.840.114 350.1.13.10 4.2.7.2.686 [id number] [facility] Results Test Description Test Time Test Comments Results Result Co mments Source [facility] B9716-45-67 10:25:15* Test Item Value Reference Range Interpretation Comme nts TROPONIN I (test code = 3093876669) 0.006 ng/mL <=0.034 HUGH (test code = [...] of biotin. Lab Interpretation (test code = 29133-0) Normal [facility]-ECL2098-96-28 10:22:54* Test Item Value Reference Range Interpretation Comme nts NT-proBNP (test code = 81132-7) 32 pg/mL <=125 Lab Interpretation (test cod e = 14425-9) Normal [facility]2023-[facility]-28 10:13:53* Test Item Value Reference Range Interpretation Comme nts NA (test code = 6672836577) 141 mmol/L 135-145 K (test code = 9847547741) 3.9 mmol/L 3.5-5.0 CL (test code = 8743535605) 109 mmol/L 98-108 H CO2 TOTAL (test code = 9244691546) 25 mmol/L 23-31 AGAP (test code = 9432882408) 7 2-16 BUN (test code = 5608980892) 23 mg/dL 7-23 GLUCOSE (test code = 6348635646) 155 mg/dL 70-110 H CREATININE (test code = 2724526890) 0.70 mg/dL 0.60-1.25 TOTAL BILI (test code = 5397904686) 0.4 mg/dL 0.1-1.1 CALCIUM (test code = 5908783052) 8.8 mg/dL 8.6-10.6 T PROTEIN (test code = 2557040829) 6.8 g/dL 6.3-8.2 ALBUMIN (test code = 3744357078) 3.7 g/dL 3.5-5.0 ALK PHOS (test code = 0949981361) 58 U/L 34-122 ALTv (test code = 1742-6) 32 U/L 5-50 AST(SGOT) (test code = 6515960361) 27 U/L 13-40 eGFR (test code = 13475-2) 114.4 mL/min/1.73m2 CKD-EPI eGFR (2020). Assuming creatinine has been stable day-to-day for at least three months, the eGFR indicates Category G1 (>= 90 mL/min/1.73 m2) Lab Interpretation (test code = 74264-0) Abnormal [facility] 1 KX2916-60-31 09:50:51Examination: Chest one view (portable frontal) Ordering Physician: POLLY RAMIREZ Date: 04/15/2023 3:30 AM History: ? STEMI ? Comparison: None available Findings: AP chest, 2 images submitted for review. Pulmonary vascularity appears normal. The lungs are clear. There is nosignificant pleural effusion evident. There is no significant pneumothoraxevident. Heart size is normal.[facility] METABOLIC [facility] (NA, K, CL, CO2, GLUCOSE, BUN, CREATININE, CA)2021-02-13 04:53:21* Test Item Value Reference Range Interpretation Comme nts NA (test code = 3105256725) 137 mmol/L 135-145 K (test code = 6032311685) 3.8 mmol/L 3.5-5.0 CL (test code = 0376053098) 107 mmol/L 98-108 CO2 TOTAL (test code = 6935176801) 27 mmol/L 23-31 AGAP (test code = 0383001921) 2-16 BUN (test code = 0987888516) 15 mg/dL 7-23 GLUCOSE (test code = 2693677349) 133 mg/dL 70-110 H CREATININE (test code = 6407400981) 1.07 mg/dL 0.60-1.25 CALCIUM (test code = 2509512695) 8.8 mg/dL 8.6-10.6 eGFR (test code = 5389434414) mL/min/1.73m2 HUGH (test code = HUGH) Association [...] imaging tests). Lab Interpretation (test code = 78236-9) Abnormal [facility] WITH SPUL7418-15-31 04:33:05* Test Item Value Reference Range Interpretation Comme nts WBC (test code = 6690-2) See_Comment [Automated [employer]] The system which generated this result transmitted reference range: 4.20 - 10.70 10*3/?L. The reference range was not used to interpret this result as normal/abnormal. RBC (test code = 789-8) See_Comment [Automated [employer]] The system which generated this result transmitted [...] 33.7 g/dL 31.2-35.0 RDW-SD (test code = 53027-1) 39.7 fL 38.5-51.6 RDW-CV (test code = 788-0) 12.9 % 12.1-15.4 PLT (test code = 777-3) See_Comment [Automated [employer] ge] The system which generated this result transmitted reference range: 150 - 328 10*3/?L. The reference range was not used to interpret this result as normal/abnormal. MPV (test code = 00597-7) 10.0 fL 9.8-13.0 NRBC/100 WBC (test code = 6849728209) See_Comment [Automated [employer] ssage] The system which generated this result transmitted reference range: 0.0 - 10.0 /100 WBCs. The reference range was not used to interpret this result as normal/abnormal. NRBC x10^3 (test code = 3651669209) <0.01 See_Comment [Automated me ssage] The system which generated this result transmitted reference range: 10*3/?L. The reference range was not used to interpret this result as normal/abnormal. GRAN MAT (NEUT) % (test code = 770-8) 49.2 % IMM GRAN % (test code = 0536886000) 0.50 % LYMPH % (test code = 736-9) 37.3 % MONO % (test code = 5905-5) 9.2 % EOS % (test code = 713-8) 2.8 % BASO % (test code = 706-2) 1.0 % GRAN MAT x10^3(ANC) (test code = 8916930221) 3.75 10*3/uL 1.99-6.95 IMM GRAN x10^3 (test code = 6087120100) 0.04 10*3/uL 0.00-0.06 LYMPH x10^3 (test code = 731-0) 2.84 10*3/uL 1.09-3.23 MONO x10^3 (test code = 742-7) 0.70 10*3/uL 0.36-1.02 EOS x10^3 (test code = 711-2) 0.21 10*3/uL 0.06-0.53 BASO x10^3 (test code = 704-7) 0.08 10*3/uL 0.01-0.09 [facility] Notes Date/Time Note Provider Source 2023-05-24 12:13:18 1fpMi3PL12ffH+k+9Vr9 ykLUVocgsYQ7f/g uCss7L0WmnSSh9mhclcjltUazoAHQ3485-7 05-24T12:13:18 Contacted patients spouse and offered a sooner appointment. 71876-8Aafioufzl encounter AspgCQ7734-21-85O42:14:10Telephone encounter NoteTXT1.2.840.582343.1.13.104.2.7. 2.718374|[id number] for patient ruak11766-1TnqjRKPOODMUPNINpgaiqgce C-CDA narrative apcn054056842Hextf [id number] 9NVUFNVIZFBKDPAUSHDBLSL8794-91-92T9 2:14:101.2.840.197435.1.72.3.15|1.2 .840.177527.1.13.104.2.7.2.727879_2 [id number] Rosalinda Portillo [facility] 2023-05-22 14:56:15 xIzkGt86NF/8JVSTwtuV Rl1OG5Bzyb05zNF iZ82aqlQQBM2IHCHdiFnCk0REuT9I9023-7 4:56:15 Zachary Keating is a 48 year old malePatient prefers sooner appointment. Currently scheduled first available and added to waitlist. Patient's is aware the clinic will contact with sooner availability.Please contact 's contact number. 12893-9Hgujyaodj encounter HqzvKW5511-21-44W92:58:24Telephone encounter NoteTXT1.2.840.147080.1.13.104.2.7. 2.390511|[id number] for patient xulh99699-3ZbsvDONUESOCOHYKxzwcqows C-CDA narrative uije912423574Qjkhso [id number] 6PJUFPHKOHTYAHSZHDOJCSV2068-57-53D8 4:58:241.2.840.686998.1.72.3.15|1.2 .840.924673.1.13.104.2.7.2.727879_2 [id number] Servando Addison [facility] 2023-04-15 05:40:20 s3euNrsHAz6AFv8OPDsB pYoGClQRFopHxET 5Nk292Qg3Epe0g666Blp201BTcP6F0644-3 05:40:20 Pt given printed and verbal discharge [...] with steady gait, in no apparent distress, 34261-9Szfgcrnti department KoovPI0087-06-90Z11:41:45Emergency department NoteTXT1.2.840.789908.1.13.104.2.7. 2.353334|[id number] for patient dxlm72673-8AmfnMTUVZNUHEKVGvuroxbie C-CDA narrative text[address] FtrsZomqjltwhIqompbjbnDHFE072885529 9JOVGNEXKIEQSKSUYAAZVDO9240-60-64Y6 5:41:451.2.840.309585.1.72.3.15|1.2 .840.142495.1.13.104.2.7.2.727879_1 [id number] [facility] 2023-04-15 03:08:52 iORkVxRWFyrGjSsZm64C OBWlUoIe7gMg0w0 r/nZ/qZNd3wQbbsFrS938kbA1fx+j4093-8 03:08:52 Pt states " I fell like shit. I can't breathe, I have COPD. I can't stop coughing. My inhaler is not working and neither is my breathing treatments." 04880-3Izhlgghqe department Triage lijuUN8919-60-05B88:10:01[facility] department Triage noteTXT1.2.840.949301.1.13.104.2.7. 2.416360|[id number] for patient aaux30396-7Mfsejbcqz department NoteLNNARRATIVEFormatted C-CDA narrative textUT[address] Io[id number] 4SMBDAPHKGLLAWTHFCHTFBU8233-53-60K6 3:10:011.2.840.464851.1.72.3.15|1.2 .840.201123.1.13.104.2.7.2.727879_1 [id number] [facility] 2023-04-15 02:55:00 6y8W5PVsSdbvo/abqB84 R+GbcRhcwd0towu 1JvntK2OJ3WjSQQ8GmcSoFCKzvTqn9688-1 02:55:00 [facility] Emergency Department NotePatient Name: Zachary Dalton of : 1975 48 year old maleTreatment Room: SD3/GP1Nfebgyc Record Number: [id number] Care Physician: Freya MorenoPatient Escorted by: Self [9]Mode of Arrival: Personal means [1]EMS 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 Pt was evaluated in :[place] and has work-up including Covid-19 and Influenza that was reportedly negativeHistory provided by: Medical records and patientLanguage motor vehicle escort driver used: NoCoughSeverity: ModerateOnset quality: GradualDuration: 2 weeksTiming: [...] of acute cardiopulmonary disease.Technical Quality: AdequateRL: 109AFC: 73370Yuh of report Lab Results:Lab ResultsCBC WITH DIFF [...] 0.06 0.01 - 0.09 10*3/uLCOMP. METABOLIC PANEL (27886) - AbnormalNA 141 135 - 145 mmol/LK [...] U/LAST(SGOT) 27 13 - 40 U/LeGFR 114.4 mL/min/1.92n8QTGYNKNA I - NormalTROPONIN I 0.006 <=0.034 ng/mLN-TERMINAL [...] nebulizer solutionFirst Provider Eval:ED EventsDate/Time Event User Qdsnjkqf62/28/23310 Medical Screening Begins EVA RAMIREZ MD --04/15/23310 First Provider Evaluation EVA RAMIREZ MD --ED COURSEDiagnosis/Impression as of 04/15/23 0537Viral bronchitisCOPD exacerbationHypertension, uncontrolledProcedures:ProceduresMD M:Medical Decision MakingJacielo Tamar Keating is a 48 year old male [...] follow-upSDb gore, DOSpecialty: IM-PULMONARY DISEASE, IM-CRITICAL CARE MEDICINENEW [facility] AND GEPYOQP6013 [facility] [address]Jtola: [phone] signed by:Eva Ramirez MD04/15/23 0537 15273-4Ruchwjlwe Emergency department SdofBN9621-68-87V42:37:25Physician Emergency department NoteTXT1.2.840.385084.1.13.104.2.7. 2.811761|[id number] for patient tdmg36239-0Mehexnqvv department NoteLNNARRATIVEFormatted C-CDA narrative [address] IviaRcuefzishXvyaflkeoSQID339600640 1FSARCDTTAJPKOMBVBISZNV4307-80-22E2 5:37:251.2.840.730126.1.72.3.15|1.2 .840.757264.1.13.104.2.7.2.727879_1 [id number] [facility] 2022-11-21 18:11:41 EVoddgLgcS9p9ZxDtWdN /mhoxuMypQit+ci E8OKGrY0VCzcr6AJNwVagz+11OEB54290-7 11-21T18:11:41 Pt given printed and verbal discharge instructions regarding fall, rib fracture, knee pain, encouraged hydration.2 Prescriptions sent to pharmacy.Discussed ibuprofen and to take with food to avoid GI distress.Discussed Tylenol # 3/[place] side affects and to avoid driving/operating machinery/or [...] leaving via wheelchair, in no apparent distress. 70778-3Owzkwugbm department EznvDS3017-47-05Z71:13:33[facility] NoteTXT1.2.840.175908.1.13.104.2.7. 2.988278|9886836448APSmxlknpej for patient ixwx36496-8NoqhBN620843497Rikpky M Herrera RN[address]ZaidNqqkxfszrByvagjbffPZWV484962884 5FMFSZRKFFXCFPWDUDPLPFI0370-86-50I3 8:13:331.2.840.372378.1.72.3.15|1.2 .840.575581.1.13.104.2.7.2.727879_1 [id number] Shell Sears RN [facility] 2022-11-21 13:35:53 XLANfWp2QZtZWphKeAHt ONHKJdDyl076Zoh TkIz5RvsZTh2mXbiKWPJb/0y1DiTg9878-3 3:35:53 Patient states: "About 1.5 hours ago I was playing basketball, went up for a rebound. I fell and landed on my hand on my left ribs with some people on top of me. I'm having bad rib pain and shortness of breath. Also my right knee hurts pretty bad" 79717-3Uobcddgvd department Triage tmtqOS8783-49-59U08:36:53[facility] department Triage noteTXT1.2.840.608443.1.13.104.2.7. 2.162976|1285775875ZVQufxbosul for patient zlhd67531-2Aiwrkkcxj department AyucCC749341402Gqxoe M Cruz RNUT[address] OvwoWvmdfvuhfRxlsdvidpTIIB462123833 3JUOOGNOOBMBPNUZCHNNCHK1582-16-66H2 3:36:531.2.840.603952.1.72.3.15|1.2 .840.307080.1.13.104.2.7.2.727879_1 [id number] Sowmya Rhea Arndt RN [facility] 2022-11-21 13:27:00 BFPT+vydyh5qxY8V0E2s 0RgpNDYhYnimpXk EZ4SBXhT12jw+C2zGNDtRpm6o6gHl1692-3 3:27:00 [facility] Emergency Department NotePatient Name: Zachary Moodyte of : 1975 47 year old maleTreatment Room: [place] [address]Medical Record Number: [id number] Care Physician: Kye EstebansPpaul Escorted by: Family [5]Mode of Arrival: Personal means [1]EMS 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 RL: [facility] [facility]: [address] End of report. THORAX WO CONTRAST Final [...] Eval:ED Events Date/Time Event User Comments 11/21/22 1355 [...] and comfortable with plan. Procedures: ProceduresMDM:Medical Decision Smtzpf68 yo M presents after fallProblems Addressed:Fall, initial [...] Follow-up:Electronically signed by: Kane Huffman MD11/21/22 1708 43856-5Tiuabjvvh Emergency department OatvWI0308-86-10E01:08:54Physician Emergency department NoteTXT1.2.840.568290.1.13.104.2.7. 2.692923|[id number] for patient dxni66938-8Bezwakksu department Note[address] VaevJzxnugxfaHxqimcxlrKQQX408314392 5LFXRCHNVRJRDGYIWIZYSCY9658-92-53P8 7:08:541.2.840.447506.1.72.3.15|1.2 .840.872743.1.13.104.2.7.2.727879_1 [id number] [facility]
[2023-07-04 22:54] LABS: Absolute Eosinophils 0.2 K/uL (0-0.5); Absolute Lymphocytes (CBC) 2.4 K/uL (0.7-4.9); Absolute Monocytes 0.8 K/uL (0.1-1.3); Absolute Neutrophil 4.8 K/uL (1.8-8.0); Basophils % 0.2 % (0-1.3); Eosinophils % 2.5 % (0-4.4); Hematocrit 40.7 % (39.6-49.0); Hemoglobin 14.5 g/dL (13.6-17.9); Lymphocytes % 29.2 % (15.3-44.8); MCH 30.6 pg (27.0-35.0); MCHC 35.5 g/dL (32.0-36.0); MPV 9.4 fL (7.6-11.3); Monocytes % 9.7 % (3.3-12.3); Neutrophils % 58.4 % (41.7-73.7); Nucleated RBC Absolute Count 0.1 (0-0); Nucleated Red Blood Cells % 0.6 % (0-0); Platelets 175 thou/uL (152-406); RBC Red Blood Cell Count 4.73 M/uL (4.33-5.43); Red Cell Distribution Width 13.7 % (12.1-15.2)
[2023-07-04 23:34] LABS: Albumin/Globulin Ratio 0.9 (1.1-1.8); Bilirubin Total 0.4 mg/dL (0.2-1.0); Globulin 3.4 g/dL (2.3-3.5); Protein, Total 6.4 g/dL (6.4-8.2)
--- NOTE | 2023-07-05 00:07 | ER ---
Nurse's Notes [facility] Name: Dennis Keating Age: 48 yrs Sex: Male : 1975 Arrival Date: 07/04/2023 Time: 21:10 Bed 15 Private MD: Diagnosis: Abdominal pain, Generalized;Diarrhea, unspecified;Nausea with vomiting, unspecified Presentation: 07/03 21:35 Chief complaint: Patient states: LUQ abdominal pain that started on suddenly 2 hrs ago. cm10 Pt reports diarrhea and vomiting. Pt has noted tenderness to LUQ. History of diverticulitis and colon resection. Coronavirus screen: Client denies travel out of the [place] in the last 14 days. At this time, the client does not indicate any symptoms associated with coronavirus-19. Ebola Screen: Patient denies travel to an Ebola-affected area in the 21 days before illness onset. No symptoms or risks identified at this time. Initial Sepsis Screen: Does the patient meet any 2 criteria? HR > 90 bpm. Does the patient have a suspected source of infection? No. Patient's initial sepsis screen is negative. Risk Assessment: Do you want to hurt yourself or someone else? Patient reports no desire to harm self or others. Onset of symptoms was July 04, 2023. 21:35 Method Of Arrival: Wheelchair cm10 21:35 Acuity: AMNA 3 cm10 Historical: - Allergies: 21:37 Aspirin; cm10 21:37 Cipro PO; cm10 21:37 Ibuprofen; cm10 21:37 PENICILLINS; cm10 21:37 Toradol; cm10 - PMHx: 21:37 Back pain; Chronic obstructive lung disease; CHRONS; Diverticulitis; Myocardial cm10 infarction; - PSHx: 21:37 Ankle; bowel resection; foot; hand; knee; testicle; cm10 - Immunization history:: Adult Immunizations up to date. - Social history:: Smoking status: Patient reports the use of cigarette tobacco products, smokes one pack cigarettes per day. Reported history of juuling and/or vaping. Screenin:45 [facility] ED Fall Risk Assessment (Adult) History of falling in the last 3 months, me1 including since admission No falls in past 3 months (0 pts) Confusion or Disorientation No (0 pts) Intoxicated or Sedated No (0 pts) Impaired Gait No (0 pts) Mobility Assist Device Used No (0 pt) Altered Elimination No (0 pt) Score/Fall Risk Level 0 - 2 = Low Risk Maintained a safe environment, Provided non-skid footwear, Hourly rounding (assess needs \T\ fall precautionary measures) done. Abuse screen: Denies threats or abuse. Nutritional screening: No deficits noted. Tuberculosis screening: No symptoms or risk factors identified. Assessment: 21:45 General: Appears uncomfortable, ill, obese, well groomed, well developed, Behavior is me1 calm, cooperative, appropriate for age, Reports LLQ pain that started about 2 hours before coming to ER. Reports n/v/d as well. Pain: Complains of pain in left lower quadrant Pain does not radiate. Pain currently is 9 out of 10 on a pain scale. Quality of pain is described as sharp, Pain began suddenly, 2 hours ago. Is continuous. Neuro: Level of Consciousness is awake, alert, obeys commands, Oriented to person, place, time, situation, Appropriate for age. Cardiovascular: Capillary refill < 3 seconds Patient's skin is warm and dry. Respiratory: Airway is patent Trachea midline Respiratory effort is even, unlabored, Respiratory pattern is regular, symmetrical. GI: Abdomen is round obese, Reports lower abdominal pain, diarrhea, nausea, vomiting, since about 2 hours ago. Derm: Skin is intact, is healthy with good turgor, Skin is pink, warm \T\ dry. 23:00 Reassessment: Patient appears in no apparent distress at this time. Patient and/or me1 family updated on plan of care and expected duration. Pain level reassessed. Patient is alert, oriented x 3, equal unlabored respirations, skin warm/dry/pink. 23:45 Reassessment: Patient and/or family updated on plan of care and expected duration. Pain me1 level reassessed. Patient is alert, oriented x 3, equal unlabored respirations, skin warm/dry/pink. Patient states symptoms have not improved. Vital Signs: 21:35 BP 153 / 84; Pulse 99; Resp 18; Temp 98.6; Pulse Ox 100% on R/A; Weight 158.76 kg; cm10 Height 6 ft. 3 in. ; Pain 9/10; 22:00 BP 129 / 78; Pulse 90; Resp 20; Pulse Ox 95% on R/A; me1 22:45 Pain 9/10; me1 22:45 BP 107 / 60; Pulse 91; Resp 20; Pulse Ox 94% on R/A; me1 23:13 Pain 6/10; me1 23:45 BP 116 / 70; Pulse 88; Resp 16; Pulse Ox 94% on R/A; Pain 9/10; me1 23:59 BP 118 / 78; Pulse 89; Resp 18; Pulse Ox 92% on R/A; me1 21:35 Body Mass Index 43.75 (158.76 kg, 190.5 cm) cm10 21:35 Pain Scale: Adult cm10 22:45 Pain Scale: Adult me1 23:13 Pain Scale: Adult me1 23:45 Pain Scale: Adult me1 ED Course: 21:13 Patient arrived in ED. [id number] 21:36 Triage completed. cm10 21:37 Arm band placed on Patient placed in an exam room, on a stretcher. cm10 21:40 Karen Sheppard FNP-C is PHCP. kb 21:40 Laura Baumann is Attending Physician. kb 21:45 Patient has correct armband on for positive identification. Bed in low position. Call me1 light in reach. Side rails up X2. Provided Education on: POC. Verbalized understanding. . 21:45 No provider procedures requiring assistance completed. me1 21:52 Mony Hurtado, RN is Primary Nurse. me1 22:16 Radiology exam delayed due to IV insertion attempt and/or patient not having eh4 appropriate IV at this time. 22:30 Initial lab(s) drawn, by me, sent to lab. Inserted saline lock: 22 gauge in left me1 antecubital area, using aseptic technique. 22:30 CBC with Diff Sent. me1 22:30 CMP Sent. me1 22:30 Lipase Sent. me1 23:17 CT Abd/Pelvis - IV Contrast Only In Process Unspecified. EDMS 07/04 00:43 IV discontinued, intact, bleeding controlled, No redness/swelling at site. Pressure me1 dressing applied. Administered Medications: 07/03 22:30 Drug: NS 0.9% IV 1000 ml IV at 1 bolus Per protocol; 1000 mL bolus Route: IV; Rate: 1 me1 bolus; Site: left antecubital; 22:45 Follow up: Response: No adverse reaction; IV Status: Completed infusion me1 22:31 Drug: Ondansetron IVP 4 mg IVP once; over 2 minutes Route: IVP; Site: left antecubital; me1 22:45 Follow up: Response: No adverse reaction; Nausea is decreased me1 22:31 Drug: morphine IVP or IV 4 mg IVP once over 4 mins Route: IVP; Infused Over: 4 mins; me1 Site: left antecubital; 22:45 Follow up: Pain 9/10 Adult; Response: No adverse reaction; Pain is unchanged, physician me1 notified 22:56 Drug: morphine IVP or IV 4 mg IVP once over 4 mins Route: IVP; Infused Over: 4 mins; me1 Site: left antecubital; 23:13 Follow up: Pain 6/10 Adult; Response: No adverse reaction; Pain is decreased me1 07/04 00:11 Drug: HYDROmorphone IVP 1 mg IVP once Route: IVP; Site: left antecubital; me1 00:31 Follow up: Response: No adverse reaction; Pain is decreased me1 00:11 Drug: Ondansetron IVP 4 mg IVP once; over 2 minutes Route: IVP; Site: left antecubital; me1 00:31 Follow up: Response: No adverse reaction; Nausea is decreased me1 00:11 Drug: Decadron - Dexamethasone IVP 10 mg IVP once Route: IVP; Site: left antecubital; me1 00:31 Follow up: Response: No adverse reaction me1 Medication: 07/03 21:45 VIS not applicable for this client. me1 Outcome: 07/04 00:06 Discharge ordered by MD. junior 00:43 Discharged to home ambulatory, with significant other, me1 00:43 Condition: stable 00:43 Discharge instructions given to patient, significant other, Instructed on discharge instructions, follow up and referral plans. medication usage, Demonstrated understanding of instructions, follow-up care, medications, Prescriptions given X 3, 00:43 Patient left the ED. me1 Signatures: Dispatcher [employer] EDNE Karen Sheppard, CHI OLGUINP-Yudith Wan j6 [place] Robledo [address] RN RN cm10 Mony Hurtado RN RN me1 Corrections: (The following items were deleted from the chart) 07/03 22:45 22:44 Response: No adverse reaction; Nausea is decreased; IV Status: Completed infusion me1 me1
--- NOTE | 2023-07-05 00:07 | EDPHYS ---
Physician Documentation [facility] Name: Dennis Keating Age: 48 yrs Sex: Male : 1975 Arrival Date: 07/04/2023 Time: 21:10 Bed 15 Private MD: ED Physician Laura Baumann HPI: 07/04 00:04 This 48 yrs old Male presents to ER via Wheelchair with complaints of kb Nausea/Vomiting/Diarrhea, Abdominal Pain, Pt has H/O Crohns Disease. 00:04 Patient is a 48-year-old male who presents for left lower quadrant pain, nausea, kb vomiting, diarrhea that started 2 hours prior to arrival. Denies fever, chills. Patient has a history of diverticulitis and Crohn's. Historical: - Allergies: 07/03 21:37 Aspirin; cm10 21:37 Cipro PO; cm10 21:37 Ibuprofen; cm10 21:37 PENICILLINS; cm10 21:37 Toradol; cm10 - PMHx: 21:37 Back pain; Chronic obstructive lung disease; CHRONS; Diverticulitis; Myocardial cm10 infarction; - PSHx: 21:37 Ankle; bowel resection; foot; hand; knee; testicle; cm10 - Immunization history:: Adult Immunizations up to date. - Social history:: Smoking status: Patient reports the use of cigarette tobacco products, smokes one pack cigarettes per day. Reported history of juuling and/or vaping. ROS: 07/04 00:04 Constitutional: As per HPI kb Exam: 00:04 Constitutional: This is a well developed, well nourished patient who is awake, alert, kb and in no acute distress. Head/Face: Normocephalic, atraumatic. ENT: Moist Mucous membranes Cardiovascular: Regular rate Respiratory: Respirations even and unlabored. No increased work of breathing. Talking in full sentences Skin: Warm, dry with normal turgor. Normal color. MS/ Extremity: Pulses equal, no cyanosis. Neurovascular intact. Full, normal range of motion. Neuro: Awake and alert, GCS 15, oriented to person, place, time, and situation. Moves all extremities. Normal gait. 00:04 Abdomen/GI: Inspection: obese Bowel sounds: normal, Palpation: soft, in all quadrants, mild abdominal tenderness, in the right upper quadrant and right lower quadrant, moderate abdominal tenderness, in the left upper quadrant and left lower quadrant, Vital Signs: 07/03 21:35 BP 153 / 84; Pulse 99; Resp 18; Temp 98.6; Pulse Ox 100% on R/A; Weight 158.76 kg; cm10 Height 6 ft. 3 in. ; Pain 9/10; 22:00 BP 129 / 78; Pulse 90; Resp 20; Pulse Ox 95% on R/A; me1 22:45 Pain 9/10; me1 22:45 BP 107 / 60; Pulse 91; Resp 20; Pulse Ox 94% on R/A; me1 23:13 Pain 6/10; me1 23:45 BP 116 / 70; Pulse 88; Resp 16; Pulse Ox 94% on R/A; Pain 9/10; me1 23:59 BP 118 / 78; Pulse 89; Resp 18; Pulse Ox 92% on R/A; me1 21:35 Body Mass Index 43.75 (158.76 kg, 190.5 cm) cm10 21:35 Pain Scale: Adult cm10 22:45 Pain Scale: Adult me1 23:13 Pain Scale: Adult me1 23:45 Pain Scale: Adult me1 MDM: 21:40 Patient medically screened. kb 07/04 00:04 Differential diagnosis: Nonspecific abd pain, diverticulitis. Data reviewed: vital kb signs, nurses notes. Counseling: I had a detailed discussion with the patient and/or guardian regarding the historical points, exam findings, and any diagnostic results supporting the discharge/admit diagnosis, lab results, radiology results, the need for outpatient follow up, a family practitioner, a spanish interpreter/translator, to return to the emergency department if symptoms worsen or persist or if there are any questions or concerns that arise at home. 07/03 21:42 Order name: CBC with Diff; Complete Time: 22:57 kb 07/03 21:42 Order name: CMP; Complete Time: 23:37 kb 07/03 21:42 Order name: Lipase; Complete Time: 23:37 kb 07/03 21:42 Order name: CT Abd/Pelvis - IV Contrast Only kb 07/03 21:42 Order name: IV Saline Lock; Complete Time: 22:30 kb 07/03 21:42 Order name: Labs collected and sent; Complete Time: 22:30 kb Administered Medications: 07/03 22:30 Drug: NS 0.9% IV 1000 ml IV at 1 bolus Per protocol; 1000 mL bolus Route: IV; Rate: 1 me1 bolus; Site: left antecubital; 22:45 Follow up: Response: No adverse reaction; IV Status: Completed infusion me1 22:31 Drug: Ondansetron IVP 4 mg IVP once; over 2 minutes Route: IVP; Site: left antecubital; me1 22:45 Follow up: Response: No adverse reaction; Nausea is decreased me1 22:31 Drug: morphine IVP or IV 4 mg IVP once over 4 mins Route: IVP; Infused Over: 4 mins; me1 Site: left antecubital; 22:45 Follow up: Pain 9/10 Adult; Response: No adverse reaction; Pain is unchanged, physician me1 notified 22:56 Drug: morphine IVP or IV 4 mg IVP once over 4 mins Route: IVP; Infused Over: 4 mins; me1 Site: left antecubital; 23:13 Follow up: Pain 6/10 Adult; Response: No adverse reaction; Pain is decreased me1 07/04 00:11 Drug: HYDROmorphone IVP 1 mg IVP once Route: IVP; Site: left antecubital; me1 00:31 Follow up: Response: No adverse reaction; Pain is decreased me1 00:11 Drug: Ondansetron IVP 4 mg IVP once; over 2 minutes Route: IVP; Site: left antecubital; me1 00:31 Follow up: Response: No adverse reaction; Nausea is decreased me1 00:11 Drug: Decadron - Dexamethasone IVP 10 mg IVP once Route: IVP; Site: left antecubital; me1 00:31 Follow up: Response: No adverse reaction me1 Disposition Summary: 07/05/23 00:06 Discharge Ordered Notes: Location: Home kb Condition: Stable kb Diagnosis - Abdominal pain, Generalized kb - Diarrhea, unspecified kb - Nausea with vomiting, unspecified kb Followup: kb - With: Emergency Department - When: As needed - Reason: Worsening of condition Followup: kb - With: Private Physician - When: 2 - 3 days - Reason: Recheck today's complaints, Continuance of care, Re-evaluation by your physician Discharge Instructions: - Discharge Summary Sheet kb - Food Choices to Help Relieve Diarrhea, Adult kb - Nausea and Vomiting, Adult, [id number] kb - Abdominal Pain, Adult, [id number] kb Forms: - Medication Reconciliation Form kb - Thank You Letter kb - Antibiotic Education kb - Prescription Opioid Use kb - Patient Portal Instructions kb - Leadership Thank You Letter kb Prescriptions: - Prednisone 20 mg Oral Tablet - take 1 tablet ORAL route once daily for 5 days; 5 tablet; Refills: 0, Product kb Selection Permitted - Zofran 4 mg Oral tablet - take 1 tablet ORAL route every 6 hours As needed; 12 tablet; Refills: 0, kb Product Selection Permitted - dicyclomine 20 mg Oral tablet - take 1 tablet ORAL route 4 times per day As needed; 20 tablet; Refills: 0, kb Product Selection Permitted Signatures: Dispatcher [employer] EDKaren Rivera FNP-C FNP-[address], RN RN cm10 Mony Hurtado RN RN me1 Corrections: (The following items were deleted from the chart) 00:09 00:04 Patient is a 48-year-old male who presents for left lower quadrant pain, nausea, kb vomiting, diarrhea that started 2 hours prior to arrival. Denies fever, chills.. kb
[2023-07-05 01:10] VITALS: BP 118/78; TEMP 98.6; O2SAT 92
--- NOTE | 2023-07-05 11:28 | RAD REPORT ---
EXAM DESCRIPTION: CT - Abdomen Pelvis W Contrast - 07/05/2023 6:40 am CLINICAL HISTORY: 48 years Male LUQ pain, vomiting, diarrhea COMPARISON: June 21, 2023 TECHNIQUE: Images were obtained in axial, sagittal, and coronal planes. This exam was performed according to our departmental dose-optimization program which includes use of Automated Exposure Control, adjustment of the mA and/or kV according to patient size and/or use of iterative reconstruction technique. FINDINGS: No abnormality involving the liver, spleen, pancreas, gallbladder, and adrenal glands bila terally. No obstructing renal or ureteral calculi bilaterally. No hydronephrosis bilaterally. Unremarkable genny dder. Appendix within normal limits. No bowel obstruction, perforation, or inflammation. Surgical clips sig moid colon indicating prior bowel anastomosis. Moderate diverticulosis left colon with no associated inflammatory change. No acute osseous abnormality. No abnormality in lower lungs bilaterally. No dilatation of the abdominal aorta. Unremarkable portal vein. No adenopathy or abnormal fluid colle ction seen. IMPRESSION: No acute intra-abdominal abnormality. Moderate diverticulosis left colon with no associa sangeetha inflammatory change. Electronically signed by: Nikki Lazo MD 07/04/2023 11:49 PM CDT Due to temporary technical issues with the PACS/Fluency reporting system, reports are being signed by the in house radiologist without review as a courtesy to ensure prompt reporting. The interpreting r adiologist is fully responsible for the content of the report.
== END ==
LOC: ER 21:10
DX: R10.84 Generalized abdominal pain (principal); R19.7 Diarrhea, unspecified; R11.2 Nausea with vomiting, unspecified; Z72.0 Tobacco use; Z88.0 Allergy status to penicillin; Z88.1 Allergy status to other antibiotic agents; Z88.5 Allergy status to narcotic agent; Z88.6 Allergy status to analgesic agent
CPT/HCPCS: 85025; 36415; 83690; 80053; 74177; Q9967; J2405; J7030

== ENCOUNTER → 2023-07-05 | Emergency (ER) | payer OTHER ==
[~2023-07-05] MED LIST changes: +HALOPERIDOL LACT 5 MG/ML INJ ONE; -HYDROMORPHONE HCL 1 MG/ML INJ ONE; -NA CHLORIDE 0.9% 1,000 ML ONE; -ONDANSETRON 4 MG/2 ML VIAL ONE; -dexAMETHasone 10 MG/ML VIAL ONE
--- OUTSIDE RECORDS SUMMARY | 2023-07-05 09:59 | XMS REPORT | Continuity of Care Document ---
Author Name Unknown Address [address] [facility] [address] [place] [address] [facility] Address [address] [facility]. [address] [place] [address] Care Team Providers Care Binding Stitcher Name Role Phone Tiffanie Freya Primary Care Physician [phone] SUSSY FROST Attending Clinician SUSSY Kumar Attending Clinician Sussy Kumar MD Attending Clinician EVA RAMIREZ Attending Clinician Unavailable Eva Ramirez MD Attending Clinician [phone] Doctor Unassigned, [place] Attending Clinician U Kane Rabago MD Attending Clinician [phone] KANE HUFFMAN Attending Clinician UnavailALBER De Los Santos Attending Clinician ANA Lord Attending Clinician Unavailable LESTER ARTEAGA Attending Clinician Unavailasa streeter ERICKSON_R Attending Clinician Unavailable Werner Zavaleta Attending Clinician [phone] EVA RAMIREZ Admitting Clinician Unavailable KANE HUFFMAN Admitting Clinician Gerhard GLOVER Admitting Clinician Unavailable Payers Payer Name Policy Type Policy Number Effective Date Expirati on Date Source [facility] [id number] 00:00:00 [employer] MC[employer] ADV CHOICE PPO [id number] 2021 00:00:00 [facility] (MEDICARE REPLACEMENT/[place] GE - PPO) [id number] Problems Condition Name Condition Details Condition Category Status Onset Date Resolution Date Last Treatment Date Treating Clinician Comments Source Bipolar disorder Bipolar Disorder Problem Active 05-08 00:00: 00 [place] [facility] Depressive disorder Depressive Disorder Problem [facility] Attention deficit hyperactiv ity disorder Attention Deficit Hyperactiv ity Disorder Problem Active 05-08 [facility] Hypertensi ve disorder Hypertensi ve Disorder Problem Active 05-08 00:00: 00 [place] [facility] Chronic obstructiv e lung disease Chronic Obstructiv e Lung Disease Problem Active 05-08 00:00: 00 [place] [facility] Crohn's disease Crohn's Disease Problem Active 05-08 00:00: 00 [place] [facility] Diverticul itis Diverticul itis Problem Active 05-08 00:00: 00 [place] [facility] Osteoarthr itis Osteoarthr itis Problem Active 05-08 00:00: 00 [place] [facility] History of intravenou s drug abuse History of Intravenou s Drug Abuse Problem Active 05[facility]08 [facility] No known active problems No known active problems Disease [facility] Allergies, Adverse Reactions, Alerts Allergy Name Allergy Type Status Severity Reaction(s) Onset Date Inactive Date Treating Clinician Comments Source Ciproflo xacin Propensi ty to adverse reaction s Active Other - See comments 07-24 00:00: 00 [facility] CIPROFLO XACIN DRUG INGREDI Active Other-Cmnt 07-24 00:00: 00 [facility] Aspirin Propensi ty to adverse reaction s Active Rash 2014-04 0 00:00: 00 [facility] Ibuprofe n Propensi ty to adverse reaction s Active Rash 2014-04 0 00:00: 00 [facility] Penicill in Propensi ty to adverse reaction s Active Unknown - See comments 2014-04 00:00: 00 [facility] Ketorola c Propensi ty to adverse reaction s Active Unknown - See comments 2014-04 00:00: 00 [facility] ASPIRIN DRUG INGREDI Active Rash 2014-04 0 00:00: 00 [facility] IBUPROFE N DRUG INGREDI Active Rash 2014-04 0 00:00: 00 [facility] PENICILL IN DRUG INGREDI Active Unknown-Cmnt 2014-04 0 00:00: 00 [facility] KETOROLA C DRUG INGREDI Active Unknown-Cmnt 2014-04 0 00:00: 00 [facility] TORADOL Allergy to substanc e Active Nausea [facility] Aspirin Allergy to substanc e Active Nausea [facility] Ibuprofe n Allergy to substanc e Active Nausea [facility] PENICILL INS Allergy to substanc e Active Hives [place] [facility] Social History Social Habit Start Date Stop Date Quantity Comments Source Gender identity [facility] to SARS-CoV-2 (event) Not sure [facility] History of tobacco use Cigarette Smoker [facility] History of Social function 2018-10-27 00:00:00 2018-10-27 00:00:00 [facility] Cigarette pack-years 2018-07-11 00:00:00 2018-07-11 00:00:00 [facility] Tobacco use and exposure 2018-07-11 00:00:00 2018-07-11 00:00:00 User of smokeless tobacco [facility] Cigarettes smoked current (pack per day) - Reported 2018-07-11 00:00:00 2018-07-11 00:00:00 [facility] Sex Assigned At 1975 00:00:00 1975 00:00:00 [facility] Smoking Status Start Date Stop Date Source Smokes tobacco daily 2018-07-11 00:00:00 [facility] Medications Ordered Medication Name Filled Medication Name Start Date Stop Date Current Medication? Ordering Clinician Indication Dosage Frequency Signature (SIG) Comments Components Source HYDROcodone -acetaminop hen (NORCO) 10-325 mg tablet 1 tablet 2022-04 12:15: 00 04-15 11:15 :00 No 1{tbl} 1 tablet, Oral, ONCE NOW, 1 dose, On [facility] 04/15/23 at 0615, Routine [facility] magnesium sulfate in water 2 gram/50 mL (4 %) infusion 2 g 2022-04 12:00: 00 04-15 23:59 :00 Yes 2g 2 g, IV Piggyback, Administer over 60 Minutes, ONCE, 1 dose, On Yolanda 04/15/23 at 0600, Routine [facility] ipratropium -albuteroL (DUONEB) 0.5 mg-3 mg(2.5 mg base)/3 mL nebulizer solution 3 mL 2022-04 11:15: 00 Yes 3mL 3 mL, Inhalation , QID, First dose on Yolanda 04/15/23 at 0515, Until Discontinu ed, Routine [facility] ipratropium -albuteroL (DUONEB) 0.5 mg-3 mg(2.5 mg base)/3 mL nebulizer solution 3 mL 2022-04 10:30: 00 04-15 09:40 :00 No 3mL 3 mL, Inhalation , ONCE, 1 dose, On [facility] 04/15/23 at 0430, Routine [facility] methylpredn isolone sod succ (SOLU-MEDRO L) injection 125 mg 2022-04 10:30: 00 04-15 09:34 :00 No 125mg 125 mg, Intravenou s, ONCE, 1 dose, On Yolanda 04/15/23 at 0430, 2 mL [facility] cyclobenzap rine 10 mg tablet 2022-04 05:28: 16 04-15 00:00 :00 No cyclobenza yann 10 mg tablet Take 1 tablet twice a day by oral route as directed for 28 days. [facility] albuterol 90 mcg/actuati on inhaler 2022-04 00:00: 00 Yes [id number] 2{puff} Inhale 2 Puffs every 4 (four) hours as needed for Wheezing or Shortness of Breath. [facility] predniSONE 20 mg tablet 2022-04 00:00: 00 Yes [id number] TAKE ONE TABLET ORALLY TWICE A DAY FOR FIVE DAYS [facility] albuterol 2.5 mg /3 mL (0.083 %) nebulizer solution 2022-04 00:00: 00 Yes [id number] 2.5mg Inhale 3 mL every 6 (six) hours as needed for Wheezing, Shortness of Breath, Bronchospa sm or Chest tightness. May also nebulize one extra every 6 hours. [facility] albuterol 90 mcg/actuati on inhaler 2022-04 00:00: 00 Yes [id number] 2{puff} Inhale 2 Puffs every 4 (four) hours as needed for Wheezing or Shortness of Breath. [facility] predniSONE 20 mg tablet 2022-04 00:00: 00 Yes [id number] TAKE ONE TABLET ORALLY TWICE A DAY FOR FIVE DAYS [facility] albuterol 2.5 mg /3 mL (0.083 %) nebulizer solution 2022-04 00:00: 00 Yes [id number] 2.5mg Inhale 3 mL every 6 (six) hours as needed for Wheezing, Shortness of Breath, Bronchospa sm or Chest tightness. May also nebulize one extra every 6 hours. [facility] codeine-gua ifenesin 10-100 mg/5 mL oral solution 2022-04 2-28 00:00: 00 04-23 05:59 :00 Yes 10mL Take 10 mL by mouth every 6 (six) hours as needed for Cough for up to 7 days. Indication s: COUGH [facility] methocarbam oL (ROBAXIN) injection 1,000 mg 11-22 03:00: 00 Yes 1000mg 1,000 mg, Intravenou s, Q8H, First dose on 11/21/22 at 2200, Until Discontinu ed, Routine [facility] HYDROmorpho ne (DILAUDID) injection 1 mg 11-21 20:45: 00 11-21 22:14 :00 No 1mg 1 mg, Slow IV Push, ONCE, 1 dose, On 11/21/22 at 1545, SAM
Us e approved by (Faculty): ADC PROVIDER [facility] acetaminoph en ADULT (OFIRMEV) injection 1,000 mg 11-21 20:00: 00 11-21 20:02 :00 No 1000mg 1,000 mg, IV Infusion, at 400 mL/hr Administer over 15 Minutes, ONCE, 1 dose, On 11/21/22 at 1500, Routine
Indicatio n: Non-periop erative Patient
Approved by: Per Policy (NPO Status) [facility] morpHINE (4 mg/mL) injection 4 mg 11-21 20:00: 00 11-21 19:44 :00 No 4mg 4 mg, Slow IV Push, ONCE, 1 dose, On 11/21/22 at 1500, SAM [facility] cyclobenzap rine 10 mg tablet 11-21 17:05: 02 Yes cyclobenza yann 10 mg tablet Take 1 tablet twice a day by oral route as directed for 28 days. [facility] cyclobenzap rine 10 mg tablet 11-21 17:05: 02 Yes cyclobenza yann 10 mg tablet Take 1 tablet twice a day by oral route as directed for 28 days. [facility] acetaminoph en-codeine 300-30 mg tablet 11-21 00:00: 00 Yes [id number] 1{tbl} Take 1 tablet by mouth every 6 (six) hours as needed for Pain (scale 4-6) for up to 15 doses. Indication s: acute pain [facility] acetaminoph en-codeine 300-30 mg tablet 11-21 00:00: 00 Yes [id number] 1{tbl} Take 1 tablet by mouth every 6 (six) hours as needed for Pain (scale 4-6) for up to 15 doses. Indication s: acute pain [facility] acetaminoph en-codeine 300-30 mg tablet 11-21 00:00: 00 Yes [id number] 1{tbl} Take 1 tablet by mouth every 6 (six) hours as needed for Pain (scale 4-6) for up to 15 doses. Indication s: [facility] acetaminoph [facility]-codeine 300-30 mg tablet 11-21 00:00: 00 Yes [id number] 1{tbl} Take 1 tablet by mouth every 6 (six) hours as needed for Pain (scale 4-6) for up to 15 doses. Indication s: acute pain [facility] cyclobenzap rine 10 mg tablet 11-21 00:00: 00 11-27 04:59 :00 No [id number] 10mg Take 1 tablet by mouth in the morning and 1 tablet at noon and 1 tablet in the evening. Do all this for 5 days. [facility] clindamycin in 5 % dextrose (CLEOCIN) [...] dose, On Yolanda 02/13/21 at 0015, Routine [facility] FENTanyl PF (SUBLIMAZE (PF)) injection 50 mcg 2020-04 04:39: 00 02-13 04:45 :00 No 50ug 50 mcg, Slow IV Push, ONCE, 1 dose, On Wed02/12/21 at 2345, STAT [facility] clindamycin 300 mg capsule 2020-04 00:00: 00 Yes [id number] 300mg Take 1 capsule by mouth 4 (four) times daily. [facility] gabapentin 300 mg capsule 2020-04 00:00: 00 Yes [id number] 300mg Take 1 capsule by mouth 3 (three) times daily. [facility] clindamycin 300 mg capsule 2020-04 00:00: 00 Yes [id number] 300mg Take 1 capsule by mouth 4 (four) times daily. [facility] gabapentin 300 mg capsule 2020-04 00:00: 00 Yes [id number] 300mg Take 1 capsule by mouth 3 (three) times daily. [facility] clindamycin 300 mg capsule 2020-04 00:00: 00 Yes [id number] 300mg Take 1 capsule by mouth 4 (four) times daily. [facility] clindamycin 300 mg capsule 2020-04 00:00: 00 Yes [id number] 300mg Take 1 capsule by mouth 4 (four) times daily. [facility] clindamycin 300 mg capsule 2020-04 00:00: 00 Yes [id number] 300mg Take 1 capsule by mouth 4 (four) times daily. [facility] gabapentin 300 mg capsule 2020-04 00:00: 00 Yes [id number] 300mg Take 1 capsule by mouth 3 (three) times daily. [facility] gabapentin 300 mg capsule 2020-04 00:00: 00 04-15 00:00 :00 No [id number] 300mg Take 1 capsule by mouth 3 (three) times daily. [facility] proMETHazin e 25 mg tablet 07-24 00:00: 00 Yes [id number] 25mg Take 1 tablet by mouth every 6 (six) hours as needed for Nausea and Vomiting (N/V). [facility] traMADOL (ULTRAM) 50 mg tablet 07-24 00:00: 00 Yes [id number] 50mg Take 1 tablet by mouth every 6 (six) hours as needed for Pain (scale 4-6). [facility] proMETHazin e 25 mg tablet 07-24 00:00: 00 Yes [id number] 25mg Take 1 tablet by mouth every 6 (six) hours as needed for Nausea and Vomiting (N/V). [facility] traMADOL (ULTRAM) 50 mg tablet 07-24 00:00: 00 Yes [id number] 50mg Take 1 tablet by mouth every 6 (six) hours as needed for Pain (scale 4-6). [facility] proMETHazin e 25 mg tablet 07-24 00:00: 00 Yes [id number] 25mg Take 1 tablet by mouth every 6 (six) hours as needed for Nausea and Vomiting (N/V). [facility] traMADOL (ULTRAM) 50 mg tablet 07-24 00:00: 00 Yes [id number] 50mg Take 1 tablet by mouth every 6 (six) hours as needed for Pain (scale 4-6). [facility] traMADOL (ULTRAM) 50 mg tablet 07-24 00:00: 00 Yes [id number] 50mg Take 1 tablet by mouth every 6 (six) hours as needed for Pain (scale 4-6). [facility] traMADOL (ULTRAM) 50 mg tablet 07-24 00:00: 00 Yes [id number] 50mg Take 1 tablet by mouth every 6 (six) hours as needed for Pain (scale 4-6). [facility] proMETHazin e 25 mg tablet 07-24 00:00: 00 Yes [id number] 25mg Take 1 tablet by mouth every 6 (six) hours as needed for Nausea and Vomiting (N/V). [facility] traMADOL (ULTRAM) 50 mg tablet 07-24 00:00: 00 Yes [id number] 50mg Take 1 tablet by mouth every 6 (six) hours as needed for Pain (scale 4-6). [facility] proMETHazin e 25 mg tablet 07-24 00:00: 00 04-15 00:00 :00 No [id number] 25mg Take 1 tablet by mouth every 6 (six) hours as needed for Nausea and Vomiting (N/V). [facility] meloxicam 7.5 mg tablet 07-11 09:32: 26 Yes meloxicam 7.5 mg tablet [facility] ketorolac 10 mg tablet 07-11 09:32: 26 Yes 10mg Take 10 mg by mouth. [facility] budesonide- formoterol 160-4.5 mcg/actuati on inhaler 07-11 09:32: 26 Yes Symbicort 160 mcg-4.5 mcg/actuat ion HFA aerosol inhaler [facility] meloxicam 7.5 mg tablet 07-11 09:32: 26 Yes meloxicam 7.5 mg tablet [facility] ketorolac 10 mg tablet 07-11 09:32: 26 Yes 10mg Take 10 mg by mouth. [facility] budesonide- formoterol 160-4.5 mcg/actuati on inhaler 07-11 09:32: 26 Yes Symbicort 160 mcg-4.5 mcg/actuat ion HFA aerosol inhaler [facility] cyclobenzap rine 10 mg tablet 07-11 09:32: 26 Yes cyclobenza yann 10 mg tablet Take 1 tablet twice a day by oral route as directed for 28 days. [facility] meloxicam 7.5 mg tablet 07-11 09:32: 26 Yes meloxicam 7.5 mg tablet [facility] ketorolac 10 mg tablet 07-11 09:32: 26 Yes 10mg Take 10 mg by mouth. [facility] budesonide- formoterol 160-4.5 mcg/actuati on inhaler 07-11 09:32: 26 Yes Symbicort 160 mcg-4.5 mcg/actuat ion HFA aerosol inhaler [facility] meloxicam 7.5 mg tablet 07-11 09:32: 26 Yes meloxicam 7.5 mg tablet [facility] ketorolac 10 mg tablet 07-11 09:32: 26 Yes 10mg Take 10 mg by mouth. [facility] budesonide- formoterol 160-4.5 mcg/actuati on inhaler 07-11 09:32: 26 Yes Symbicort 160 mcg-4.5 mcg/actuat ion HFA aerosol inhaler [facility] meloxicam 7.5 mg tablet 07-11 09:32: 26 Yes meloxicam 7.5 mg tablet [facility] ketorolac 10 mg tablet 07-11 09:32: 26 Yes 10mg Take 10 mg by mouth. [facility] budesonide- formoterol 160-4.5 mcg/actuati on inhaler 07-11 09:32: 26 Yes Symbicort 160 mcg-4.5 mcg/actuat ion HFA aerosol inhaler [facility] cyclobenzap rine 10 mg tablet 07-11 09:32: 26 Yes cyclobenza yann 10 mg tablet Take 1 tablet twice a day by oral route as directed for 28 days. [facility] meloxicam 7.5 mg tablet 07-11 09:32: 26 Yes meloxicam 7.5 mg tablet [facility] ketorolac 10 mg tablet 07-11 09:32: 26 Yes 10mg Take 10 mg by mouth. [facility] budesonide- formoterol 160-4.5 mcg/actuati on inhaler 07-11 09:32: 26 Yes Symbicort 160 mcg-4.5 mcg/actuat ion HFA aerosol inhaler [facility] HYDROcodone -acetaminop hen (NORCO) 10-325 mg tablet 07-11 09:22: 33 Yes 2{tbl} Take 2 Tabs by mouth daily. [facility] HYDROcodone -acetaminop hen (NORCO) 10-325 mg tablet 07-11 09:22: 33 Yes 2{tbl} Take 2 Tabs by mouth daily. [facility] HYDROcodone -acetaminop hen (NORCO) 10-325 mg tablet 07-11 09:22: 33 Yes 2{tbl} Take 2 Tabs by mouth daily. [facility] HYDROcodone -acetaminop hen (NORCO) 10-325 mg tablet 07-11 09:22: 33 Yes 2{tbl} Take 2 Tabs by mouth daily. [facility] HYDROcodone -acetaminop hen (NORCO) 10-325 mg tablet 07-11 09:22: 33 Yes 2{tbl} Take 2 Tabs by mouth daily. [facility] HYDROcodone -acetaminop hen (NORCO) 10-325 mg tablet 07-11 09:22: 33 Yes 2{tbl} Take 2 Tabs by mouth daily. [facility] albuterol 90 mcg/actuati on inhaler 07-11 00:00: 00 Yes [id number] 2{puff} Inhale 2 Puffs every 6 (six) hours as needed for Wheezing or Shortness of Breath. [facility] albuterol 90 mcg/actuati on inhaler 07-11 00:00: 00 Yes [id number] 2{puff} Inhale 2 Puffs every 6 (six) hours as needed for Wheezing or Shortness of Breath. [facility] albuterol 90 mcg/actuati on inhaler 07-11 00:00: 00 Yes [id number] 2{puff} Inhale 2 Puffs every 6 (six) hours as needed for Wheezing or Shortness of Breath. [facility] albuterol 90 mcg/actuati on inhaler 07-11 00:00: 00 Yes [id number] 2{puff} Inhale 2 Puffs every 6 (six) hours as needed for Wheezing or Shortness of Breath. [facility] albuterol 90 mcg/actuati on inhaler 07-11 00:00: 00 Yes [id number] 2{puff} Inhale 2 Puffs every 6 (six) hours as needed for Wheezing or Shortness of Breath. [facility] albuterol 90 mcg/actuati on inhaler 07-11 00:00: 00 Yes [id number] 2{puff} Inhale 2 Puffs every 6 (six) hours as needed for Wheezing or Shortness of Breath. [facility] CELECOXIB (CELEBREX ORAL) 2014-04 0 16:33: 56 Yes Take by mouth. [facility] CELECOXIB (CELEBREX ORAL) 2014-04 0 16:33: 56 Yes Take by mouth. [facility] CELECOXIB (CELEBREX ORAL) 2014-04 0 16:33: 56 Yes Take by mouth. [facility] CELECOXIB (CELEBREX ORAL) 2014-04 0 16:33: 56 Yes Take by mouth. [facility] CELECOXIB (CELEBREX ORAL) 2014-04 0 16:33: 56 Yes Take by mouth. [facility] CELECOXIB (CELEBREX ORAL) 2014-04 0 16:33: 56 Yes Take by mouth. [facility] albuterol sulfate 2.5 mg/3 mL (0.083 %) solution for nebulizatio n Take 2 vials daily albuterol sulfate 2.5 mg/3 mL (0.083 %) solution for nebulizatio n Take 2 vials daily No albuterol sulfate 2.5 mg/3 mL (0.083 %) solution for nebulizati on Take [address] [facility] albuterol sulfate HFA 90 mcg/actuati on aerosol inhaler 2 puffs Q4-6 hrs albuterol sulfate HFA 90 mcg/actuati on aerosol inhaler 2 puffs Q4-6 hrs No albuterol sulfate HFA 90 mcg/actuat ion aerosol inhaler 2 puffs Q4-[address] [facility] alprazolam 1 mg tablet TAKE ONE (1) TABLET(S) BY MOUTH ONCE A DAY NEEDED. alprazolam 1 mg tablet TAKE ONE (1) TABLET(S) BY MOUTH ONCE A DAY NEEDED. No alprazolam 1 mg tablet TAKE ONE (1) TABLET(S) BY MOUTH ONCE A DAY NEEDED. [facility] clindamycin HCl 300 mg capsule TAKE 1 CAPSULE BY MOUTH FOUR TIMES DAILY clindamycin HCl 300 mg capsule TAKE 1 CAPSULE BY MOUTH FOUR TIMES DAILY No clindamyci n HCl 300 mg capsule TAKE 1 CAPSULE BY MOUTH FOUR TIMES DAILY [facility] dextroamphe tamine-amph etamine 20 mg tablet TAKE ONE (1) TABLET(S) BY MOUTH EVERY MORNING. dextroamphe tamine-amph etamine 20 mg tablet TAKE ONE (1) TABLET(S) BY MOUTH EVERY MORNING. No dextroamph etamine-am phetamine 20 mg tablet TAKE ONE (1) TABLET(S) BY MOUTH EVERY MORNING. [facility] prednisone 20 mg tablet TAKE 1 TABLET BY MOUTH DAILY. prednisone 20 mg tablet TAKE 1 TABLET BY MOUTH DAILY. No prednisone 20 mg tablet TAKE 1 TABLET BY MOUTH DAILY. [facility] Vital Signs Vital Name Observation Time Observation Value Comments S ource Heart rate 2023-04-15 11:17:00 94 /min [facility] Body temperature 2023-04-15 11:17:00 36.78 Char [facility] Respiratory rate 2023-04-15 11:17:00 18 /min [facility] Oxygen saturation in Arterial blood by Pulse oximetry 2023-04-15 11:17:00 97 /min [facility] Systolic blood pressure 2023-04-15 11:07:00 130 mm[Hg] [facility] Diastolic blood pressure 2023-04-15 11:07:00 118 mm[Hg] [facility] Body height 2023-04-15 09:11:00 190.5 cm [facility] Body weight 2023-04-15 09:11:00 149.687 kg [facility] BMI 2023-04-15 09:11:00 41.25 kg/m2 [facility] Systolic blood pressure 2022-11-21 22:14:00 122 mm[Hg] [facility] Diastolic blood pressure 2022-11-21 22:14:00 82 mm[Hg] [facility] Heart rate 2022-11-21 22:14:00 76 /min [facility] Respiratory rate 2022-11-21 22:14:00 16 /min [facility] Oxygen saturation in Arterial blood by Pulse oximetry 2022-11-21 22:14:00 96 /min [facility] Body temperature 2022-11-21 18:37:00 36.83 Char [facility] Body height 2022-11-21 18:37:00 190.5 cm [facility] Body weight 2022-11-21 18:37:00 154.223 kg [facility] BMI 2022-11-21 18:37:00 42.50 kg/m2 [facility] BP Diastolic 2021-05-08 00:00:00 82 mm[Hg] [facility] Height 2021-05-08 00:00:00 74 [in_i] Replaced by [facility] BMI (Body Mass Index) 2021-05-08 00:00:00 41.1 kg/m2 [facility] BP Systolic 2021-05-08 00:00:00 124 mm[Hg] [facility] Body Weight 2021-05-08 00:00:00 5120 [oz_av] [facility] Systolic blood pressure 2021-02-13 05:30:00 115 mm[Hg] [facility] Diastolic blood pressure 2021-02-13 05:30:00 83 mm[Hg] [facility] Heart rate 2021-02-13 05:30:00 78 /min [facility] Respiratory rate 2021-02-13 05:30:00 19 /min [facility] Oxygen saturation in Arterial blood by Pulse oximetry 2021-02-13 05:30:00 97 /min [facility] Body temperature 2021-02-13 03:30:00 36.94 Char [facility] Body height 2021-02-13 03:30:00 188 cm [facility] Body weight 2021-02-13 03:30:00 137.939 kg [facility] BMI 2021-02-13 03:30:00 39.04 kg/m2 [facility] Procedures Procedure Date / Time Performed Performing Clinicia n Source XR CHEST 1 VW 2023-04-15 09:40:04 Eva Ramirez [facility] TROPONIN I 2023-04-15 09:32:00 Eva Ramirez [facility] COMP. METABOLIC PANEL ([id number]) 2023-04-15 09:32:00 Eva aRmirez [facility] CBC WITH DIFF 2023-04-15 09:32:00 Eva Ramirez [facility] N-TERMINAL PRO-BNP 2023-04-15 09:32:00 Eva Ramirez [facility] NOTICE OF PRIVACY PRACTICES 2023-04-15 08:54:44 Doctor Unassigned, [place] [facility] CONSENT/REFUSAL FOR DIAGNOSIS AND TREATMENT 2023-04-15 08:54:28 Doctor Unassigned, [place] [facility] CT LUMBAR SPINE WO CONTRAST 2022-11-21 20:32:53 [place] Huffman A [facility] CT THORAX WO CONTRAST 2022-11-21 20:32:53 Chaitanya Huffman A [facility] CONSENT/REFUSAL FOR DIAGNOSIS AND TREATMENT 2022-11-21 18:27:20 Doctor Unassigned, [place] [facility] URINALYSIS 2021-02-13 04:20:00 Eva Ramirez [facility] BASIC METABOLIC PANEL (NA, K, CL, CO2, GLUCOSE, BUN, CREATININE, CA) 2021-02-13 04:08:00 Eva Ramirez [facility] CBC WITH DIFF 2021-02-13 04:08:00 Eva Ramirez [facility] NOTICE OF PRIVACY PRACTICES 2021-02-13 03:11:24 Doctor Unassigned, [place] [facility] CONSENT/REFUSAL FOR DIAGNOSIS AND TREATMENT 2021-02-13 03:10:40 Doctor Unassigned, [place] [facility] Procedure on Hand [place] [facility] Repair of Testis [place] [facility] Repair of Ankle [place] [facility] Knee Surgery [facility] Encounters Start Date/Time End Date/Time Encounter Type Admission Type Attending Clinicians Care Facility Care Department Encounter ID Source 2023-06-23 10:00:00 2023-06-23 10:00:00 Outpatient R SUSSY FROST STRAHIL [facility] [id number] [facility] 2023-05-22 00:00:00 2023-05-22 00:00:00 Telephone Sussy Frost [facility] 1.84.114 350.1.13.10 4.2.7.2.686 [id number] [facility] 2023-04-15 03:08:00 2023-04-15 05:41:00 Emergency X CARLITOSRAJESHKELLYEVA [facility] ERT [id number] [facility] 2023-04-15 03:08:00 2023-04-15 05:41:00 Emergency Adi Ramirezbenson S [facility] 1.84.114 350.1.13.10 4.2.7.2.686 [id number] [facility] 2023-04-15 00:00:00 2023-04-15 00:00:00 Orders Only Doctor Unassigned, [place] [facility] 1.84.114 350.1.13.10 4.2.7.2.686 [id number] [facility] 2022-11-21 13:42:00 2022-11-21 17:40:00 Emergency Kane Huffman A [facility] 1.840.114 350.1.13.10 4.2.7.2.686 [id number] [facility] 2022-11-21 13:42:00 2022-11-21 17:40:00 Emergency X KANE HUFFMAN [facility] ERT [id number] [facility] 2022-01-07 14:00:00 2022-01-07 14:00:00 Outpatient R FRANKLIN ALBER [facility] [id number] [facility] 2022-01-05 10:00:00 2022-01-05 10:00:00 Outpatient R OSIRISJERILYNBHAVNARANDOLPH [facility] [id number] [facility] 2021-07-30 15:00:00 2021-07-30 15:00:00 Outpatient R LESTER ARTEAGA [facility] [id number] [facility] 2021-05-12 08:40:00 2021-05-12 08:40:00 Outpatient ERICKSON_R [facility] [id number] [place] [facility] 2021-05-09 09:40:00 2021-05-09 09:40:00 Outpatient ERSTACION_R [facility] [id number] [facility] [facility] 2021-05-08 06:02:00 2021-05-08 06:02:00 Outpatient ERICKSON[facility]R [facility] 0120 [place] [facility] 2021-05-08 00:00:00 2021-05-08 00:00:00 Werner Zavaleta, DO: [address] , [place] [address] , Ph. [phone] [facility], DR. ZAVALETA [id number] [facility] [facility] 2021-05-08 00:00:00 2021-05-08 00:00:00 Outpatient Werner Zavaleta [facility] [id number] 2021-02-12 22:35:00 2021-02-13 01:24:00 Emergency Eva Ramirez [facility] 1.2.840.114 350.1.13.10 4.2.7.2.686 [id number] [facility] 2021-02-12 22:35:00 2021-02-13 01:24:00 Emergency X EVA RAMIREZ [facility] ERT [id number] [facility] 2021-02-12 00:00:00 2021-02-12 00:00:00 Orders Only Doctor Unassigned, [place] [facility] 1.2.840.114 350.1.13.10 4.2.7.2.686 [id number] [facility] Results Test Description Test Time Test Comments Results Result Co mments Source [facility] [id number] 10:25:15* Test Item Value Reference Range Interpretation Comme nts TROPONIN I (test code = 8346638566) 0.006 ng/mL <=0.034 HUGH (test code = [...] of biotin. Lab Interpretation (test code = 06181-8) Normal [facility] LHC-MDW1334-87-28 10:22:54* Test Item Value Reference Range Interpretation Comme nts NT-proBNP (test code = 17761-5) 32 pg/mL <=125 Lab Interpretation (test cod e = 71349-4) Normal [facility]2023-12-28 10:13:53* Test Item Value Reference Range Interpretation Comme nts NA (test code = 0945118742) 141 mmol/L 135-145 K (test code = 8024657391) 3.9 mmol/L 3.5-5.0 CL (test code = 8518121253) 109 mmol/L 98-108 H CO2 TOTAL (test code = 9526094552) 25 mmol/L 23-31 AGAP (test code = 2802673759) 7 2-16 BUN (test code = 7894608983) 23 mg/dL 7-23 GLUCOSE (test code = 3381581472) 155 mg/dL 70-110 H CREATININE (test code = 5388792762) 0.70 mg/dL 0.60-1.25 TOTAL BILI (test code = 5374382301) 0.4 mg/dL 0.1-1.1 CALCIUM (test code = 6520164747) 8.8 mg/dL 8.6-10.6 T PROTEIN (test code = 6830892453) 6.8 g/dL 6.3-8.2 ALBUMIN (test code = 5698009423) 3.7 g/dL 3.5-5.0 ALK PHOS (test code = 1549448034) 58 U/L 34-122 ALTv (test code = 1742-6) 32 U/L 5-50 AST(SGOT) (test code = 8862740815) 27 U/L 13-40 eGFR (test code = 75146-5) 114.4 mL/min/1.73m2 CKD-EPI eGFR (2020). Assuming creatinine has been stable day-to-day for at least three months, the eGFR indicates Category G1 (>= 90 mL/min/1.73 m2) Lab Interpretation (test code = 19311-3) [facility]normal [facility] 1 LB9887-50-61 09:50:51Examination: Chest one view (portable frontal) Ordering Physician: POLLY RAMIREZ Date: 04/15/2023 3:30 AM History: ? STEMI ? Comparison: None available Findings: AP chest, 2 images submitted for review. Pulmonary vascularity appears normal. The lungs are clear. There is nosignificant pleural effusion evident. There is no significant pneumothoraxevident. Heart size is normal.[facility] (NA, K, CL, CO2, GLUCOSE, BUN, CREATININE, CA)2021-02-13 04:53:21* Test Item Value Reference Range Interpretation Comme nts NA (test code = 1560705796) 137 mmol/L 135-145 K (test code = 3982547279) 3.8 mmol/L 3.5-5.0 CL (test code = 6439331371) 107 mmol/L 98-108 CO2 TOTAL (test code = 2418123036) 27 mmol/L 23-31 AGAP (test code = 9926097866) 2-16 BUN (test code = 5335462917) 15 mg/dL 7-23 GLUCOSE (test code = 7760553427) 133 mg/dL 70-110 H CREATININE (test code = 2978709176) 1.07 mg/dL 0.60-1.25 CALCIUM (test code = 0452849904) 8.8 mg/dL 8.6-10.6 eGFR (test code = 9039394589) mL/min/1.73m2 HUGH (test code = HUGH) Association [...] imaging tests). Lab Interpretation (test code = 67977-8) Abnormal [facility] WITH DXGW6005-44-16 04:33:05* Test Item Value Reference Range Interpretation Comme nts WBC (test code = 6690-2) See_Comment [Automated MeBe[employer] FIMBex] The system which generated this result transmitted reference range: 4.20 - 10.70 10*3/?L. The reference range was not used to interpret this result as normal/abnormal. RBC (test code = 789-8) See_Comment [Automated [employer] FIMBex] The system which generated this result transmitted [...] 33.7 g/dL 31.2-35.0 RDW-SD (test code = 53299-2) 39.7 fL 38.5-51.6 RDW-CV (test code = 788-0) 12.9 % 12.1-15.4 PLT (test code = 777-3) See_Comment [Automated MeBeama ge] The system which generated this result transmitted reference range: 150 - 328 10*3/?L. The reference range was not used to interpret this result as normal/abnormal. MPV (test code = 27036-7) 10.0 fL 9.8-13.0 NRBC/100 WBC (test code = 6941307332) See_Comment [Automated [employer] ssage] The system which generated this result transmitted reference range: 0.0 - 10.0 /100 WBCs. The reference range was not used to interpret this result as normal/abnormal. NRBC x10^3 (test code = 0699840551) <0.01 See_Comment [Automated me ssage] The system which generated this result transmitted reference range: 10*3/?L. The reference range was not used to interpret this result as normal/abnormal. GRAN MAT (NEUT) % (test code = 770-8) 49.2 % IMM GRAN % (test code = 0376206512) 0.50 % LYMPH % (test code = 736-9) 37.3 % MONO % (test code = 5905-5) 9.2 % EOS % (test code = 713-8) 2.8 % BASO % (test code = 706-2) 1.0 % GRAN MAT x10^3(ANC) (test code = 8526058705) 3.75 10*3/uL 1.99-6.95 IMM GRAN x10^3 (test code = 4053649062) 0.04 10*3/uL 0.00-0.06 LYMPH x10^3 (test code = 731-0) 2.84 10*3/uL 1.09-3.23 MONO x10^3 (test code = 742-7) 0.70 10*3/uL 0.36-1.02 EOS x10^3 (test code = 711-2) 0.21 10*3/uL 0.06-0.53 BASO x10^3 (test code = 704-7) 0.08 10*3/uL 0.01-0.09 [facility] Notes Date/Time Note Provider Source 2023-05-24 12:13:18 1atZr5RT26pmI+k+9Vr9 gcEJHllloXX0s/g eTpo6G1CoqGGc5wbwbfrzrAwplZSF1267-8 05-24T12:13:18 Contacted patients spouse and offered a sooner appointment. 35826-4Msymdgmrv encounter LeepZK7122-22-37P58:14:10Telephone encounter NoteTXT1.2.840.071746.1.13.104.2.7. 2.396879|[id number] for patient xbdr49804-9AghhHTFDIKCHLFKQrkfxatut C-CDA narrative ddyu349977650Erwij [id number] 8YHATFZEWNBSJIGBGJGCFLL0247-12-34B2 2:14:101.2.840.725920.1.72.3.15|1.2 .840.363898.1.13.104.2.7.2.727879_2 [id number] Rosalinda Portillo [facility] 2023-05-22 14:56:15 fSjgLq61MB/8JVSTwtuV Bd5KA0Ytsh26pEH wB23xdhCATZ2OZXMbbYxEs5MEwN8A6008-2 4:56:15 Zachary Keating is a 48 year old malePatient prefers sooner appointment. Currently scheduled first available and added to waitlist. Patient's is aware the clinic will contact with sooner availability.Please contact 's contact number. 39299-3Wmglewtbj encounter GzgnAX5063-31-55W50:58:24Telephone encounter NoteTXT1.2.840.725037.1.13.104.2.7. 2.704964|[id number] for patient ixju65474-4YqhiUCEMMGDBMUCOgwnfcadu C-CDA narrative dcyi800181840Gaiczb [id number] 7HGWBEFLUINYTDUAEZQWTHY4266-40-07Z8 4:58:241.2.840.875044.1.72.3.15|1.2 .840.339495.1.13.104.2.7.2.727879_2 [id number] Servando Addison [facility] 2023-04-15 05:40:20 r1npHsoPKl3GGq4YMCrS pYoGClQRFopHxET 9Rk764Bd7Vek7o242Kor731QBkB8U3329-0 05:40:20 Pt given printed and verbal discharge [...] with steady gait, in no apparent distress, 58365-5Jyayzitpy department RbhsSH5905-90-42C85:41:45Emergency department NoteTXT1.2.840.422082.1.13.104.2.7. 2.118423|[id number] for patient yife19770-0WiqnYYTNAMXUGEHYtkcdsnhj C-CDA narrative text[address] CamxItvuxtyxbVakzzkbmoZKAN748889728 8KXPZIYEZYEOXNPJWEHIEDW6679-08-41E9 5:41:451.2.840.206547.1.72.3.15|1.2 .840.895348.1.13.104.2.7.2.727879_1 [id number] [facility] 2023-04-15 03:08:52 fBKpWuPGNzdSoDeCg39U YROdGpOe8hDx2p8 r/nZ/cNTa8yLwtfZmS370zoP6wn+b8117-7 03:08:52 Pt states " I fell like shit. I can't breathe, I have COPD. I can't stop coughing. My inhaler is not working and neither is my breathing treatments." 01994-5Fedhdkqdl department Triage kljsTX9389-80-30O48:10:01[facility] department Triage noteTXT1.2.840.958475.1.13.104.2.7. 2.179416|[id number] for patient ozay05415-0Tnnuckotn department NoteLNNARRATIVEFormatted C-CDA narrative textUT[address] OuojNxhitsqqyCensxxrxdNNMB371475600 9GPERMLICTVMFBBIJQXOWSR1794-22-49P1 3:10:011.2.840.851433.1.72.3.15|1.2 .840.688072.1.13.104.2.7.2.727879_1 [id number] [facility] 2023-04-15 02:55:00 6l8R6ZLgXdkve/abqB84 R+ZxtOwghu2hkbd 4WqrpY1MW8BgKWN5QbfUgOGMezJam0554-8 02:55:00 [facility] Emergency Department NotePatient Name: Zachary Dalton of : 1975 48 year old maleTreatment Room: AR3/JU6Ibfrrgu Record Number: [id number] Care Physician: Freya MorenoPatient Escorted by: Self [9]Mode of Arrival: Personal means [1]EMS Treatment Prior to ED Arrival:TRIM MECHANIC treatment: Medication (comment)TRIM MECHANIC treatment comments: inhaler, z-pack, breathing treatmentTravel and [...] and generalized aches. Pt was evaluated in :[place] 2 and has work-up including Covid-19 and Influenza that was reportedly negativeHistory provided by: Medical records and patientLanguage tank tester used: NoCoughSeverity: ModerateOnset quality: GradualDuration: 2 weeksTiming: [...] of acute cardiopulmonary disease.Technical Quality: AdequateRL: 109AFC: 34879Izw of report Lab Results:Lab ResultsCBC WITH DIFF [...] 0.06 0.01 - 0.09 10*3/uLCOMP. METABOLIC PANEL (39198) - AbnormalNA 141 135 - 145 mmol/LK [...] U/LAST(SGOT) 27 13 - 40 U/LeGFR 114.4 mL/min/1.79c3RKPXOQYB I - NormalTROPONIN I 0.006 <=0.034 ng/mLN-TERMINAL [...] nebulizer solutionFirst Provider Eval:ED EventsDate/Time Event User Fhoswedd08/28/23310 Medical Screening Begins EVA RAMIREZ MD --04/15/23310 [...] follow-upSDb gore, DOSpecialty: IM-PULMONARY DISEASE, IM-CRITICAL CARE MEDICINEGALLUP INDIAN [facility] AND RKBHZGE[address] [facility] [address]Tozzg: [phone] signed by:Eva Ramirez MD04/15/23 0537 96887-7Yrmrvycak Emergency department TeofZE4121-64-68M35:37:25Physician Emergency department NoteTXT1.2.840.682190.1.13.104.2.7. 2.400144|[id number] for patient jzkk66446-5Wduobriqp department NoteLNNARRATIVEFormatted C-CDA narrative [address] SxmjYhcmscfvnAfttimgxcDJJK826916348 6KGGZRWSZTEYRZXUJSQWQRX6548-89-09A5 5:37:251.2.840.622780.1.72.3.15|1.2 .840.162508.1.13.104.2.7.2.727879_1 [id number] [facility] 2022-11-21 18:11:41 XVyxeeIvfT3m3EmOuVhI /mhoxuMypQit+ci N6NUEoN8DYxwf1PULwDuad+07XQF50195-4 11-21T18:11:41 Pt given printed and verbal discharge instructions regarding fall, rib fracture, knee pain, encouraged hydration.2 Prescriptions sent to pharmacy.Discussed ibuprofen and to take with food to avoid GI distress.Discussed Tylenol # 3/Tanana side affects and to avoid driving/operating machinery/or [...] leaving via wheelchair, in no apparent distress. 70270-3Uaauqrtot department YkehQE7052-13-54S36:13:33[facility] department NoteTXT1.2.840.914092.1.13.104.2.7. 2.444709|[id number] for patient skrl09898-5LarsJS010008911Uxekae M Herrera RN[address]JvhcUgsxeetfaGstlmbxelEWBT882628583 2TLQUCOLVFJZSVVPHWIFDMF8917-57-67F2 8:13:331.2.840.541996.1.72.3.15|1.2 .840.881517.1.13.104.2.7.2.727879_1 [id number] Shell Sears RN [facility] 2022-11-21 13:35:53 GWCRwNu3GUsREuoDdVTc IJBEObVax267Voo GcWy5RmxKSv4aDpaVMOPt/3r8LqGn1679-0 3:35:53 Patient states: "About 1.5 hours ago I was playing basketball, went up for a rebound. I fell and landed on my hand on my left ribs with some people on top of me. I'm having bad rib pain and shortness of breath. Also my right knee hurts pretty bad" 95595-3Ivquihudo department Triage ufztZT4016-18-38S93:36:53[facility] department Triage noteTXT1.2.840.222193.1.13.104.2.7. 2.802163|[id number] for patient qcrj57718-1Xusgrzets department DcqxKU136740948Qabiz M Cruz RNUT[address] DqfuAaakptzcuQdkesgincUMPR225675396 6YHRUTRVLAIJOPLZZIQJDJK1433-55-35G2 3:36:531.2.840.328671.1.72.3.15|1.2 .840.455233.1.13.104.2.7.2.727879_1 [id number] Sowmya Rhea Arndt RN [facility] 2022-11-21 13:27:00 BFPT+nuctu3cyK7A5E0m 0RgpNDYhYnimpXk YR1SGGvQ70eh+C5vCPDqEeb6s1nSf0891-2 3:27:00 [facility] Emergency Department NotePatient Name: Zachary Moodyte of : 1975 47 year old maleTreatment Room: [place] [address]Medical Record Number: [id number] Care Physician: Kye EstebansPpaul Escorted by: Family [5]Mode of Arrival: Personal means [1]EMS Treatment Prior to ED Arrival:TRIM MECHANIC treatment: None Travel and Exposure Screening:SymptomsDoes patient [...] No significant spinal canal stenosis. RL: [facility]: [address] End of report. THORAX WO CONTRAST Final [...] and comfortable with plan. Procedures: ProceduresMDM:Medical Decision Ypuutv54 yo M presents after fallProblems Addressed:Fall, initial [...] Follow-up:Electronically signed by: Kane Huffman MD11/21/22 1708 48513-7Zgeixupvo Emergency department QsegLY1957-51-63F09:08:54Physician Emergency department NoteTXT1.2.840.907953.1.13.104.2.7. 2.787160|[id number] for patient ujwx76718-5Yngjxbomy department Note[address] HjwrCkvfkbjizKziijdnjkZUTU911071647 8KHLJGLPQQWFGDHUNEOQLIO1152-76-01Z6 7:08:541.2.840.453181.1.72.3.15|1.2 .840.440433.1.13.104.2.7.2.727879_1 [id number] [facility]
[2023-07-05 10:44] LABS: Specific Gravity > 1.030 (1.005-1.030); Sqamous Epithelial <5 /HPF (None Seen); Urine Bacteria None Seen /HPF (<20); Urine Bilirubin NEGATIVE (Negative); Urine Blood Trace (Negative); Urine Clarity Clear (Clear); Urine Color Light-Yellow (Yellow); Urine Culture Reflex Order NOT NEEDED; Urine Glucose 4+ (Over) (Negative); Urine Ketones TRACE (Negative); Urine Microscopic Reflex YN ORDER UMIC; Urine Mucus Slight /HPF (None Seen); Urine Nitrite NEGATIVE (Negative); Urine Protein TRACE (Negative); Urine RBC <5 /HPF (None Seen); Urine Urobilinogen Normal (Normal); Urine WBC <5 /HPF (<5); Urine pH 5.5 (5.0-7.0)
[2023-07-05 11:04] LABS: SARS-CoV-2 Antigen CONTROL BLUE LINE VIS/BG OK; SARS-CoV-2 Antigen Rapid Res Negative (Negative)
[2023-07-05 11:14] LABS: Absolute Lymphocytes (CBC) 0.9 K/uL (0.7-4.9); Absolute Monocytes 0.1 K/uL (0.1-1.3); Absolute Neutrophil 5.7 K/uL (1.8-8.0); Basophils % 0.5 % (0-1.3); Eosinophils % 0.5 % (0-4.4); Hematocrit 41.6 % (39.6-49.0); Hemoglobin 14.2 g/dL (13.6-17.9); Lymphocytes % 12.8 % (15.3-44.8); MCH 29.4 pg (27.0-35.0); MCHC 34.1 g/dL (32.0-36.0); MCV 86.3 fL (80-100); MPV 9.1 fL (7.6-11.3); Monocytes % 1.9 % (3.3-12.3); Neutrophils % 84.3 % (41.7-73.7); Nucleated Red Blood Cells % 0.1 % (0-0); Platelets 171 thou/uL (152-406); RBC Red Blood Cell Count 4.83 M/uL (4.33-5.43); Red Cell Distribution Width 13.4 % (12.1-15.2)
--- NOTE | 2023-07-05 12:13 | EDPHYS ---
Physician Documentation [facility] Name: Dennis Keating Age: 48 yrs Sex: Male : 1975 Arrival Date: 07/05/2023 Time: 09:54 Bed 20 Private MD: Freya Moreno ED Physician Efrain Da Silva HPI: 07/04 10:17 This 48 yrs old Male presents to ER via Wheelchair with complaints of ec2 Abdominal Pain, Vomiting/Diarrhea. 10:17 Patient arrives today for evaluation of generalized abdominal pain. Patient reports 1 ec2 day of symptoms. Was seen last night, had lab work as well as CT imaging that I reviewed that showed no acute intra-abdominal process. Patient reports he is having generalized abdominal pain, reports decreased p.o. intake associated nausea and vomiting and diarrhea. He reports no fevers or chills, does report a cough.. Historical: - Allergies: 10:10 Aspirin; iw 10:10 Cipro PO; iw 10:10 Ibuprofen; iw 10:10 PENICILLINS; iw 10:10 Toradol; iw - PMHx: 10:10 Chronic obstructive lung disease; Back pain; CHRONS; Diverticulitis; Myocardial iw infarction; - PSHx: 10:10 Ankle; bowel resection; foot; hand; knee; testicle; iw - Immunization history:: Adult Immunizations up to date. - Social history:: Smoking status: Patient reports the use of cigarette tobacco products, smokes one-half pack cigarettes per day. ROS: 10:17 Constitutional: as per hpi ec2 Exam: 10:19 Constitutional: GEN: NAD Head: atraumatic Eyes: EOMI Ears: External ears are ec2 normal. CV: Tachycardia LUNGS: no respiratory distress ABD: non-distended, obese body habitus, not guarding, not rigid, generally tender SKIN: no evidence of rashes MSK: no evidence of trauma NEURO: moves all extremities equally Vital Signs: 10:10 BP 132 / 80; Pulse 105; Resp 18; Temp 98.2; Pulse Ox 95% on R/A; iw 11:26 BP 128 / 68; Pulse 95; ec2 12:27 BP 128 / 68; Pulse 94; Resp 18; Pulse Ox 100% ; Pain 0/10; cp4 12:27 Pain Scale: Adult cp4 MDM: 10:08 Patient medically screened. ec2 10:17 Data reviewed: vital signs. ED course: Patient arrives today for evaluation of ec2 generalized abdominal pain. Examination remarkable for well-appearing nontoxic dividual is slightly tachycardic with otherwise in no acute distress with an abdominal exam as noted above. Will obtain lab work, treat the patient symptoms and reassess. Evaluating for electrolyte disturbances, UTI, viral infection. Patient had recent CT imaging last night, do not feel this would be beneficial to repeat test in last 24 hours.. 11:23 ED course: CBC reassuring without leukocytosis. Negative COVID testing. Negative flu ec2 testing. Urine is pertinent for glucose urea as well as ketones present. Noninfectious otherwise.. 12:12 ED course: On reassessment patient with improvement in nausea and vomiting. Patient ec2 with hemolyzed labs, is asking to be discharged home as he has symptomatic improvement in his symptoms. Ultimately patient had labs last night as well as CT imaging, I have a low suspicion for a significant change and do not feel to be unreasonable for him to return home given his symptomatic improvement. Will discharge home. Return precautions given.. 18 10:17 Order name: CBC with Diff; Complete Time: 11:23 2 07/04 10:17 Order name: Urinalysis w/ reflexes; Complete Time: 10:53 [facility] 07/04 10:17 Order name: SARS RAPID; Complete Time: 11:23 2 07/04 10:17 Order name: Influenza Screen (a \T\ B); Complete Time: 11:23 2 07/04 10:17 Order name: IV Saline Lock; Complete Time: 11:00 2 07/04 10:17 Order name: Labs collected and sent; Complete Time: 10:34 2 07/04 10:46 Order name: Labs - recollect needed; Complete Time: 11:07 07/04 11:18 Order name: Labs - recollect needed: recollect green top; Complete Time: 12:27 bd Administered Medications: 11:07 Drug: morphine IVP or IV 4 mg IVP once over 4 mins Route: IVP; Infused Over: 4 mins; cp4 Site: right antecubital; 12:26 Follow up: Response: No adverse reaction; Pain is decreased cp4 11:07 Drug: Haloperidol IVP 2.5 mg IVP once Route: IVP; Site: right antecubital; cp4 12:26 Follow up: Response: No adverse reaction cp4 Disposition Summary: 07/05/23 12:13 Discharge Ordered Notes: Location: Home ec2 Condition: Stable ec2 Diagnosis - Abdominal pain, Generalized ec2 Followup: ec2 - With: Private Physician - When: - Reason: Re-evaluation by your physician Discharge Instructions: - Discharge Summary Sheet ec2 - Abdominal Pain, Adult ec2 Forms: - Medication Reconciliation Form ec2 - Thank You Letter ec2 - Antibiotic Education ec2 - Prescription Opioid Use ec2 - Patient Portal Instructions ec2 - Leadership Thank You Letter ec2 Signatures: Dispatcher [employer] EDMS Gertrudis Horne Irene, RN RN iw Efrain Da Silva MD MD ec2 Yoly Rosales cp4 Corrections: (The following items were deleted from the chart) 10:19 10:17 Constitutional: GEN: NAD Head: atraumatic Eyes: EOMI Ears: External ears are ec2 normal. CV: regular rate LUNGS: no respiratory distress ABD: Obese body habitus, generally tender, not guarding, not rigid SKIN: no evidence of rashes MSK: no evidence of trauma NEURO: moves all extremities equally ec2
--- NOTE | 2023-07-05 12:13 | ER ---
Nurse's Notes [facility] Name: Dennis Keating Age: 48 yrs Sex: Male : 1975 Arrival Date: 07/05/2023 Time: 09:54 Bed 20 Private MD: Freya Moreno Diagnosis: Abdominal pain, Generalized Presentation: 07/04 10:09 Chief complaint: Patient states: was seen here last night for abd pain, pain is worse, iw hx of diverticulitis and Crohns. Coronavirus screen: At this time, the client does not indicate any symptoms associated with coronavirus-19. Ebola Screen: Patient negative for fever greater than or equal to 101.5 degrees Fahrenheit, and additional compatible Ebola Virus Disease symptoms Patient denies exposure to infectious person. Patient denies travel to an Ebola-affected area in the 21 days before illness onset. No symptoms or risks identified at this time. Initial Sepsis Screen: Does the patient meet any 2 criteria? No. Patient's initial sepsis screen is negative. Does the patient have a suspected source of infection? No. Patient's initial sepsis screen is negative. Risk Assessment: Do you want to hurt yourself or someone else? Patient reports no desire to harm self or others. Onset of symptoms was July 05, 2023. 10:09 Method Of Arrival: Wheelchair iw 10:09 Acuity: AMNA 3 iw Historical: - Allergies: 10:10 Aspirin; iw 10:10 Cipro PO; iw 10:10 Ibuprofen; iw 10:10 PENICILLINS; iw 10:10 Toradol; iw - PMHx: 10:10 Chronic obstructive lung disease; Back pain; CHRONS; Diverticulitis; Myocardial iw infarction; - PSHx: 10:10 Ankle; bowel resection; foot; hand; knee; testicle; iw - Immunization history:: Adult Immunizations up to date. - Social history:: Smoking status: Patient reports the use of cigarette tobacco products, smokes one-half pack cigarettes per day. Screenin:37 [facility] ED Fall Risk Assessment (Adult) History of falling in the last 3 months, cp4 including since admission No falls in past 3 months (0 pts) Confusion or Disorientation No (0 pts) Intoxicated or Sedated No (0 pts) Impaired Gait No (0 pts) Mobility Assist Device Used No (0 pt) Altered Elimination No (0 pt) Score/Fall Risk Level 0 - 2 = Low Risk Oriented to surroundings, Maintained a safe environment, Assessed \T\ reinforced patient's understanding of fall precautions, Hourly rounding (assess needs \T\ fall precautionary measures) done. Abuse screen: Denies threats or abuse. Nutritional screening: No deficits noted. Tuberculosis screening: No symptoms or risk factors identified. Assessment: 10:37 General: Appears uncomfortable, Behavior is calm, cooperative, appropriate for age. cp4 Pain: Complains of pain in abdomen. GI: Bowel sounds present X 4 quads. Abdomen is tender to palpation X 4 quads. Reports nausea, vomiting. Vital Signs: 10:10 BP 132 / 80; Pulse 105; Resp 18; Temp 98.2; Pulse Ox 95% on R/A; iw 11:26 BP 128 / 68; Pulse 95; ec2 12:27 BP 128 / 68; Pulse 94; Resp 18; Pulse Ox 100% ; Pain 0/10; cp4 12:27 Pain Scale: Adult cp4 ED Course: 09:57 Patient arrived in ED. mr 09:57 Freya Moreno is Private Physician. mr 09:58 Efrain Da Silva MD is Attending Physician. ec2 10:09 Triage completed. iw 10:10 Yoly Rosales is Primary Nurse. cp4 10:10 Arm band placed on. iw 10:34 Influenza Screen (a \T\ B) Sent. cp4 10:34 SARS RAPID Sent. cp4 10:35 CBC with Diff Sent. cp4 10:35 CMP Sent. cp4 10:35 Lipase Sent. cp4 10:35 Urinalysis w/ reflexes Sent. cp4 10:37 Bed in low position. Call light in reach. Side rails up X 1. Provided Education on: cp4 diverticulitis. 10:37 No provider procedures requiring assistance completed. cp4 Administered Medications: 11:07 Drug: morphine IVP or IV 4 mg IVP once over 4 mins Route: IVP; Infused Over: 4 mins; cp4 Site: right antecubital; 12:26 Follow up: Response: No adverse reaction; Pain is decreased cp4 11:07 Drug: Haloperidol IVP 2.5 mg IVP once Route: IVP; Site: right antecubital; cp4 12:26 Follow up: Response: No adverse reaction cp4 Medication: 10:37 VIS not applicable for this client. cp4 Outcome: 12:13 Discharge ordered by . ec2 12:32 Patient left the ED. cp4 Signatures: Deneen Casey Reg Reg mr Williams, Irene, RN RN iw Efrain Da Silva MD MD ec2 Yoly Rosales cp4
[2023-07-05 12:41] VITALS: BP 128/68; TEMP 98.2; O2SAT 100
== END ==
LOC: ER 09:54
DX: R10.84 Generalized abdominal pain (principal); F17.210 Nicotine dependence, cigarettes, uncomplicated; Z11.52 Encounter for screening for COVID-19; Z88.0 Allergy status to penicillin; Z88.1 Allergy status to other antibiotic agents; Z88.5 Allergy status to narcotic agent; Z88.6 Allergy status to analgesic agent
CPT/HCPCS: 85025; 81001; 36415; 87804 ×2; 87811; J1630; 96374; 96375; 99284

== ENCOUNTER → 2023-07-13 | Emergency (ER) | payer OTHER ==
[~2023-07-13] MED LIST changes: +ACETAMINOPHEN 500 MG TAB ONE; -HALOPERIDOL LACT 5 MG/ML INJ ONE; +MORPHINE 2 MG/ML SYR ONE; -MORPHINE 4 MG/ML SYR ONE; +ONDANSETRON 4 MG/2 ML VIAL ONE
--- OUTSIDE RECORDS SUMMARY | 2023-07-13 23:20 | XMS REPORT | Continuity of Care Document ---
Author Name Unknown Address [address] [facility] [address] [place] [address] [facility] heal[facility] Address [address] [facility] [place] [address] Care Team Providers Care Graduate Internship Name Role Phone Tiffanie Freya Primary Care Physician [phone] SUSSY FROST Attending Clinician UnavailSUSSY Shine Attending Clinician Sussy Mejias MD Attending Clinician EVA RAMIREZ Attending Clinician Unavailable Eva Ramirez MD Attending Clinician [phone] Doctor Unassigned, [place] Attending Clinician U Kane Rabago MD Attending Clinician [phone] KANE HUFFMAN Attending Clinician UnavailALBER De Los Santos Attending Clinician ANA Lord Attending Clinician Unavailable LESTER ARTEAGA Attending Clinician Unavailasa streeter ERICKSON_R Attending Clinician Unavailable Werner Zavaleta Attending Clinician [phone] EVA RAMIREZ Admitting Clinician Unavailable KANE HUFFMAN Admitting Clinician Gerhard GLOVER Admitting Clinician Unavailable Payers Payer Name Policy Type Policy Number Effective Date Expirati on Date Source [facility] [id number] 00:00:00 [employer] MC[employer] ADV CHOICE PPO [id number] 2021 00:00:00 [facility] (MEDICARE REPLACEMENT/[place]VANT[place] GE - PPO) [id number] Problems Condition Name Condition Details Condition Category Status Onset Date Resolution Date Last Treatment Date Treating Clinician Comments Source Bipolar disorder Bipolar Disorder Problem Active 05-08 00:00: 00 [place] [facility] Depressive disorder Depressive Disorder Problem [facility]08 [facility] Attention deficit hyperactiv ity disorder Attention Deficit Hyperactiv ity Disorder Problem Active 05[facility]08 [facility] Hypertensi ve disorder Hypertensi ve Disorder Problem Active 05-08 00:00: 00 [place] [facility] Chronic obstructiv e lung disease Chronic Obstructiv e Lung Disease Problem Active 05-08 00:00: 00 [place] [facility] Crohn's disease Crohn's Disease Problem Active 05-08 00:00: 00 [place] [facility] Diverticul itis Diverticul itis Problem Active 05-08 00:00: 00 [place] [facility] Osteoarthr itis Osteoarthr itis Problem Active 05-08 00:00: 00 [place] [facility] History of intravenou s drug abuse History of Intravenou s Drug Abuse Problem Active [facility] No known active problems No known active problems Disease [facility] Allergies, Adverse Reactions, Alerts Allergy Name Allergy Type Status Severity Reaction(s) Onset Date Inactive Date Treating Clinician Comments Source Ciproflo xacin Propensi ty to adverse reaction s Active Other - See comments 07-24 00:00: 00 [facility] CIPROFLO XACIN DRUG INGREDI Active Other-Cmnt 07-24 00:00: 00 [facility] Aspirin Propensi ty to adverse reaction s Active Rash 2014-04 0 00:00: 00 [facility] Ibuprofe n Propensi ty to adverse reaction s Active Rash 2014-04 0 00:00: 00 [facility] Penicill in Propensi ty to adverse reaction s Active Unknown - See comments 2014-04 00:00: 00 [facility] Ketorola c Propensi ty to adverse reaction s Active Unknown - See comments 2014-04 00:00: 00 [facility] ASPIRIN DRUG INGREDI Active Rash 2014-04 0 00:00: 00 [facility] IBUPROFE N DRUG INGREDI Active Rash 2014-04 0 00:00: 00 [facility] PENICILL IN DRUG INGREDI Active Unknown-Cmnt 2014-04 0 00:00: 00 [facility] KETOROLA C DRUG INGREDI Active Unknown-Cmnt 2014-04 0 00:00: 00 [facility] TORADOL Allergy to substanc e Active Nausea [facility] Aspirin Allergy to substanc e Active Nausea [facility] Ibuprofe n Allergy to substanc e Active Nausea [facility] PENICILL INS Allergy to substanc e Active Hives [facility] Social History Social Habit Start Date Stop Date Quantity Comments Source Gender identity [facility] Exposure to SARS-CoV-2 (event) Not sure [facility] History of tobacco use Cigarette Smoker [facility] History of Social function 2018-10-27 00:00:00 2018-10-27 00:00:00 [facility] Cigarette pack-years 2018-07-11 00:00:00 2018-07-11 00:00:00 [facility] Tobacco use and exposure 2018-07-11 00:00:00 2018-07-11 00:00:00 User of smokeless tobacco [facility] Cigarettes smoked current (pack per day) - Reported 2018-07-11 00:00:00 2018-07-11 00:00:00 [facility] Sex Assigned At 1975 00:00:00 1975 00:00:00 [facility] Smoking Status Start Date Stop Date Source Smokes tobacco daily 2018-07-11 00:00:00 [facility] Medications Ordered Medication Name Filled Medication Name Start Date Stop Date Current Medication? Ordering Clinician Indication Dosage Frequency Signature (SIG) Comments Components Source HYDROcodone -acetaminop hen (NORCO) 10-325 mg tablet 1 tablet 2022-04 12:15: 00 04-15 11:15 :00 No 1{tbl} 1 tablet, Oral, ONCE NOW, 1 dose, On [facility] 04/15/23 at 0615, Routine [facility] magnesium sulfate in water 2 gram/50 mL (4 %) infusion 2 g 2022-04 12:00: 00 04-15 23:59 :00 Yes 2g 2 g, IV Piggyback, Administer over 60 Minutes, ONCE, 1 dose, On [facility] 04/15/23 at 0600, Routine [facility] ipratropium -albuteroL (DUONEB) 0.5 mg-3 mg(2.5 mg base)/3 mL nebulizer solution 3 mL 2022-04 11:15: 00 Yes 3mL 3 mL, Inhalation , QID, First dose on [facility] 04/15/23 at 0515, Until Discontinu ed, Routine [facility] ipratropium -albuteroL (DUONEB) 0.5 mg-3 mg(2.5 mg base)/3 mL nebulizer solution 3 mL 2022-04 10:30: 00 04-15 09:40 :00 No 3mL 3 mL, Inhalation , ONCE, 1 dose, On [facility] 04/15/23 at 0430, Routine [facility] methylpredn isolone sod succ (SOLU-MEDRO L) injection 125 mg 2022-04 10:30: 00 04-15 09:34 :00 No 125mg 125 mg, Intravenou s, ONCE, 1 dose, On [facility] 04/15/23 at 0430, 2 mL [facility] cyclobenzap rine 10 mg tablet 2022-04 05:28: 16 04-15 00:00 :00 No cyclobenza yann 10 mg tablet Take 1 tablet twice a day by oral route as directed for 28 days. [facility] albuterol 90 mcg/actuati on inhaler 2022-04 00:00: 00 Yes [id number] 2{puff} Inhale 2 Puffs every 4 (four) hours as needed for Wheezing or Shortness of Breath. [facility] predniSONE 20 mg tablet 2022-04 00:00: 00 Yes [id number] TAKE ONE TABLET ORALLY TWICE A DAY FOR FIVE DAYS [facility] albuterol 2.5 mg /3 mL (0.083 %) nebulizer solution 2022-04 00:00: 00 Yes [id number] 2.5mg Inhale 3 mL every 6 (six) hours as needed for Wheezing, Shortness of Breath, Bronchospa sm or Chest tightness. May also nebulize one extra every 6 hours. [facility] albuterol 90 mcg/actuati on inhaler 2022-04 00:00: 00 Yes [id number] 2{puff} Inhale 2 Puffs every 4 (four) hours as needed for Wheezing or Shortness of Breath. [facility] predniSONE 20 mg tablet 2022-04 00:00: 00 Yes [id number] TAKE ONE TABLET ORALLY TWICE A DAY FOR FIVE DAYS [facility] albuterol 2.5 mg /3 mL (0.083 %) nebulizer solution 2022-04 00:00: 00 Yes [id number] 2.5mg Inhale 3 mL every 6 (six) hours as needed for Wheezing, Shortness of Breath, Bronchospa sm or Chest tightness. May also nebulize one extra every 6 hours. [facility] codeine-gua ifenesin 10-100 mg/5 mL oral solution 2022-04 2-28 00:00: 00 04-23 05:59 :00 Yes 10mL Take 10 mL by mouth every 6 (six) hours as needed for Cough for up to 7 days. Indication s: COUGH [facility] methocarbam oL (ROBAXIN) injection 1,000 mg 11-22 03:00: 00 Yes 1000mg 1,000 mg, Intravenou s, Q8H, First dose on 11/21/22 at 2200, Until Discontinu ed, Routine [facility] HYDROmorpho ne (DILAUDID) injection 1 mg 11-21 20:45: 00 11-21 22:14 :00 No 1mg 1 mg, Slow IV Push, ONCE, 1 dose, On 11/21/22 at 1545, SAM
Us e approved by (Faculty): ADC PROVIDER [facility] acetaminoph en ADULT (OFIRMEV) injection 1,000 mg 11-21 20:00: 00 11-21 20:02 :00 No 1000mg 1,000 mg, IV Infusion, at 400 mL/hr Administer over 15 Minutes, ONCE, 1 dose, On 11/21/22 at 1500, Routine
Indicatio n: Non-periop erative Patient
Approved by: Per Policy (NPO Status) [facility] morpHINE (4 mg/mL) injection 4 mg 11-21 20:00: 00 11-21 19:44 :00 No 4mg 4 mg, Slow IV Push, ONCE, 1 dose, On 11/21/22 at 1500, SAM [facility] cyclobenzap rine 10 mg tablet 11-21 17:05: 02 Yes cyclobenza yann 10 mg tablet Take 1 tablet twice a day by oral route as directed for 28 days. [facility] cyclobenzap rine 10 mg tablet 11-21 17:05: 02 Yes cyclobenza yann 10 mg tablet Take 1 tablet twice a day by oral route as directed for 28 days. [facility] acetaminoph en-codeine 300-30 mg tablet 11-21 00:00: 00 Yes [id number] 1{tbl} Take 1 tablet by mouth every 6 (six) hours as needed for Pain (scale 4-6) for up to 15 doses. Indication s: acute pain [facility] acetaminoph en-codeine 300-30 mg tablet 11-21 00:00: 00 Yes [id number] 1{tbl} Take 1 tablet by mouth every 6 (six) hours as needed for Pain (scale 4-6) for up to 15 doses. Indication s: acute pain [facility] acetaminoph en-codeine 300-30 mg tablet 11-21 00:00: 00 Yes [id number] 1{tbl} Take 1 tablet by mouth every 6 (six) hours as needed for Pain (scale 4-6) for up to 15 doses. Indication s: [facility]-30 mg tablet 11-21 00:00: 00 Yes [id number] 1{tbl} Take 1 tablet by mouth every 6 (six) hours as needed for Pain (scale 4-6) for up to 15 doses. Indication s: acute pain [facility] cyclobenzap rine 10 mg tablet 11-21 00:00: 00 11-27 04:59 :00 No [id number] 10mg Take 1 tablet by mouth in the morning and 1 tablet at noon and 1 tablet in the evening. Do all this for 5 days. [facility] clindamycin in 5 % dextrose (CLEOCIN) [...] dose, On [facility] 02/13/21 at 0015, Routine [facility] FENTanyl PF (SUBLIMAZE (PF)) injection 50 mcg 2020-04 04:39: 00 02-13 04:45 :00 No 50ug 50 mcg, Slow IV Push, ONCE, 1 dose, On Wed02/12/21 at 2345, STAT [facility] clindamycin 300 mg capsule 2020-04 00:00: 00 Yes [id number] 300mg Take 1 capsule by mouth 4 (four) times daily. [facility] gabapentin 300 mg capsule 2020-04 00:00: 00 Yes [id number] 300mg Take 1 capsule by mouth 3 (three) times daily. [facility] clindamycin 300 mg capsule 2020-04 00:00: 00 Yes [id number] 300mg Take 1 capsule by mouth 4 (four) times daily. [facility] gabapentin 300 mg capsule 2020-04 00:00: 00 Yes [id number] 300mg Take 1 capsule by mouth 3 (three) times daily. [facility] clindamycin 300 mg capsule 2020-04 00:00: 00 Yes [id number] 300mg Take 1 capsule by mouth 4 (four) times daily. [facility] clindamycin 300 mg capsule 2020-04 00:00: 00 Yes [id number] 300mg Take 1 capsule by mouth 4 (four) times daily. [facility] clindamycin 300 mg capsule 2020-04 00:00: 00 Yes [id number] 300mg Take 1 capsule by mouth 4 (four) times daily. [facility] gabapentin 300 mg capsule 2020-04 00:00: 00 Yes [id number] 300mg Take 1 capsule by mouth 3 (three) times daily. [facility] gabapentin 300 mg capsule 2020-04 00:00: 00 04-15 00:00 :00 No [id number] 300mg Take 1 capsule by mouth 3 (three) times daily. [facility] proMETHazin e 25 mg tablet 07-24 00:00: 00 Yes [id number] 25mg Take 1 tablet by mouth every 6 (six) hours as needed for Nausea and Vomiting (N/V). [facility] traMADOL (ULTRAM) 50 mg tablet 07-24 00:00: 00 Yes [id number] 50mg Take 1 tablet by mouth every 6 (six) hours as needed for Pain (scale 4-6). [facility] proMETHazin e 25 mg tablet 07-24 00:00: 00 Yes [id number] 25mg Take 1 tablet by mouth every 6 (six) hours as needed for Nausea and Vomiting (N/V). [facility] traMADOL (ULTRAM) 50 mg tablet 07-24 00:00: 00 Yes [id number] 50mg Take 1 tablet by mouth every 6 (six) hours as needed for Pain (scale 4-6). [facility] proMETHazin e 25 mg tablet 07-24 00:00: 00 Yes [id number] 25mg Take 1 tablet by mouth every 6 (six) hours as needed for Nausea and Vomiting (N/V). [facility] traMADOL (ULTRAM) 50 mg tablet 07-24 00:00: 00 Yes [id number] 50mg Take 1 tablet by mouth every 6 (six) hours as needed for Pain (scale 4-6). [facility] traMADOL (ULTRAM) 50 mg tablet 07-24 00:00: 00 Yes [id number] 50mg Take 1 tablet by mouth every 6 (six) hours as needed for Pain (scale 4-6). [facility] traMADOL (ULTRAM) 50 mg tablet 07-24 00:00: 00 Yes [id number] 50mg Take 1 tablet by mouth every 6 (six) hours as needed for Pain (scale 4-6). [facility] proMETHazin e 25 mg tablet 07-24 00:00: 00 Yes [id number] 25mg Take 1 tablet by mouth every 6 (six) hours as needed for Nausea and Vomiting (N/V). [facility] traMADOL (ULTRAM) 50 mg tablet 07-24 00:00: 00 Yes [id number] 50mg Take 1 tablet by mouth every 6 (six) hours as needed for Pain (scale 4-6). [facility] proMETHazin e 25 mg tablet 07-24 00:00: 00 04-15 00:00 :00 No [id number] 25mg Take 1 tablet by mouth every 6 (six) hours as needed for Nausea and Vomiting (N/V). [facility] meloxicam 7.5 mg tablet 07-11 09:32: 26 Yes meloxicam 7.5 mg tablet [facility] ketorolac 10 mg tablet 07-11 09:32: 26 Yes 10mg Take 10 mg by mouth. [facility] budesonide- formoterol 160-4.5 mcg/actuati on inhaler 07-11 09:32: 26 Yes Symbicort 160 mcg-4.5 mcg/actuat ion HFA aerosol inhaler [facility] meloxicam 7.5 mg tablet 07-11 09:32: 26 Yes meloxicam 7.5 mg tablet [facility] ketorolac 10 mg tablet 07-11 09:32: 26 Yes 10mg Take 10 mg by mouth. [facility] budesonide- formoterol 160-4.5 mcg/actuati on inhaler 07-11 09:32: 26 Yes Symbicort 160 mcg-4.5 mcg/actuat ion HFA aerosol inhaler [facility] cyclobenzap rine 10 mg tablet 07-11 09:32: 26 Yes cyclobenza yann 10 mg tablet Take 1 tablet twice a day by oral route as directed for 28 days. [facility] meloxicam 7.5 mg tablet 07-11 09:32: 26 Yes meloxicam 7.5 mg tablet [facility] ketorolac 10 mg tablet 07-11 09:32: 26 Yes 10mg Take 10 mg by mouth. [facility] budesonide- formoterol 160-4.5 mcg/actuati on inhaler 07-11 09:32: 26 Yes Symbicort 160 mcg-4.5 mcg/actuat ion HFA aerosol inhaler [facility] meloxicam 7.5 mg tablet 07-11 09:32: 26 Yes meloxicam 7.5 mg tablet [facility] ketorolac 10 mg tablet 07-11 09:32: 26 Yes 10mg Take 10 mg by mouth. [facility] budesonide- formoterol 160-4.5 mcg/actuati on inhaler 07-11 09:32: 26 Yes Symbicort 160 mcg-4.5 mcg/actuat ion HFA aerosol inhaler [facility] meloxicam 7.5 mg tablet 07-11 09:32: 26 Yes meloxicam 7.5 mg tablet [facility] ketorolac 10 mg tablet 07-11 09:32: 26 Yes 10mg Take 10 mg by mouth. [facility] budesonide- formoterol 160-4.5 mcg/actuati on inhaler 07-11 09:32: 26 Yes Symbicort 160 mcg-4.5 mcg/actuat ion HFA aerosol inhaler [facility] cyclobenzap rine 10 mg tablet 07-11 09:32: 26 Yes cyclobenza yann 10 mg tablet Take 1 tablet twice a day by oral route as directed for 28 days. [facility] meloxicam 7.5 mg tablet 07-11 09:32: 26 Yes meloxicam 7.5 mg tablet [facility] ketorolac 10 mg tablet 07-11 09:32: 26 Yes 10mg Take 10 mg by mouth. [facility] budesonide- formoterol 160-4.5 mcg/actuati on inhaler 07-11 09:32: 26 Yes Symbicort 160 mcg-4.5 mcg/actuat ion HFA aerosol inhaler [facility] HYDROcodone -acetaminop hen (NORCO) 10-325 mg tablet 07-11 09:22: 33 Yes 2{tbl} Take 2 Tabs by mouth daily. [facility] HYDROcodone -acetaminop hen (NORCO) 10-325 mg tablet 07-11 09:22: 33 Yes 2{tbl} Take 2 Tabs by mouth daily. [facility] HYDROcodone -acetaminop hen (NORCO) 10-325 mg tablet 07-11 09:22: 33 Yes 2{tbl} Take 2 Tabs by mouth daily. [facility] HYDROcodone -acetaminop hen (NORCO) 10-325 mg tablet 07-11 09:22: 33 Yes 2{tbl} Take 2 Tabs by mouth daily. [facility] HYDROcodone -acetaminop hen (NORCO) 10-325 mg tablet 07-11 09:22: 33 Yes 2{tbl} Take 2 Tabs by mouth daily. [facility] HYDROcodone -acetaminop hen (NORCO) 10-325 mg tablet 07-11 09:22: 33 Yes 2{tbl} Take 2 Tabs by mouth daily. [facility] albuterol 90 mcg/actuati on inhaler 07-11 00:00: 00 Yes [id number] 2{puff} Inhale 2 Puffs every 6 (six) hours as needed for Wheezing or Shortness of Breath. [facility] albuterol 90 mcg/actuati on inhaler 07-11 00:00: 00 Yes [id number] 2{puff} Inhale 2 Puffs every 6 (six) hours as needed for Wheezing or Shortness of Breath. [facility] albuterol 90 mcg/actuati on inhaler 07-11 00:00: 00 Yes [id number] 2{puff} Inhale 2 Puffs every 6 (six) hours as needed for Wheezing or Shortness of Breath. [facility] albuterol 90 mcg/actuati on inhaler 07-11 00:00: 00 Yes [id number] 2{puff} Inhale 2 Puffs every 6 (six) hours as needed for Wheezing or Shortness of Breath. [facility] albuterol 90 mcg/actuati on inhaler 07-11 00:00: 00 Yes [id number] 2{puff} Inhale 2 Puffs every 6 (six) hours as needed for Wheezing or Shortness of Breath. [facility] albuterol 90 mcg/actuati on inhaler 07-11 00:00: 00 Yes [id number] 2{puff} Inhale 2 Puffs every 6 (six) hours as needed for Wheezing or Shortness of Breath. [facility] CELECOXIB (CELEBREX ORAL) 2014-04 0 16:33: 56 Yes Take by mouth. [facility] CELECOXIB (CELEBREX ORAL) 2014-04 0 16:33: 56 Yes Take by mouth. [facility] CELECOXIB (CELEBREX ORAL) 2014-04 0 16:33: 56 Yes Take by mouth. [facility] CELECOXIB (CELEBREX ORAL) 2014-04 0 16:33: 56 Yes Take by mouth. [facility] CELECOXIB (CELEBREX ORAL) 2014-04 0 16:33: 56 Yes Take by mouth. [facility] CELECOXIB (CELEBREX ORAL) 2014-04 0 16:33: 56 Yes Take by mouth. [facility] albuterol sulfate 2.5 mg/3 mL (0.083 %) solution for nebulizatio n Take 2 vials daily albuterol sulfate 2.5 mg/3 mL (0.083 %) solution for nebulizatio n Take 2 vials daily No albuterol sulfate 2.5 mg/3 mL (0.083 %) solution for nebulizati on Take 2 vials daily [facility] albuterol sulfate HFA 90 mcg/actuati on aerosol inhaler 2 puffs Q4-6 hrs albuterol sulfate HFA 90 mcg/actuati on aerosol inhaler 2 puffs Q4-6 hrs No albuterol sulfate HFA 90 mcg/actuat ion aerosol inhaler 2 puffs Q4-6 hrs [facility] alprazolam 1 mg tablet TAKE ONE (1) TABLET(S) BY MOUTH ONCE A DAY NEEDED. alprazolam 1 mg tablet TAKE ONE (1) TABLET(S) BY MOUTH ONCE A DAY NEEDED. No alprazolam 1 mg tablet TAKE ONE (1) TABLET(S) BY MOUTH ONCE A DAY NEEDED. [facility] clindamycin HCl 300 mg capsule TAKE 1 CAPSULE BY MOUTH FOUR TIMES DAILY clindamycin HCl 300 mg capsule TAKE 1 CAPSULE BY MOUTH FOUR TIMES DAILY No clindamyci n HCl 300 mg capsule TAKE 1 CAPSULE BY MOUTH FOUR TIMES DAILY [facility] dextroamphe tamine-amph etamine 20 mg tablet TAKE ONE (1) TABLET(S) BY MOUTH EVERY MORNING. dextroamphe tamine-amph etamine 20 mg tablet TAKE ONE (1) TABLET(S) BY MOUTH EVERY MORNING. No dextroamph etamine-am phetamine 20 mg tablet TAKE ONE (1) TABLET(S) BY MOUTH EVERY MORNING. [facility] prednisone 20 mg tablet TAKE 1 TABLET BY MOUTH DAILY. prednisone 20 mg tablet TAKE 1 TABLET BY MOUTH DAILY. No prednisone 20 mg tablet TAKE 1 TABLET BY MOUTH DAILY. [facility] Vital Signs Vital Name Observation Time Observation Value Comments S ource Heart rate 2023-04-15 11:17:00 94 /min [facility] Body temperature 2023-04-15 11:17:00 36.78 Char [facility] Respiratory rate 2023-04-15 11:17:00 18 /min [facility] Oxygen saturation in Arterial blood by Pulse oximetry 2023-04-15 11:17:00 97 /min [facility] Systolic blood pressure 2023-04-15 11:07:00 130 mm[Hg] [facility] Diastolic blood pressure 2023-04-15 11:07:00 118 mm[Hg] [facility] Body height 2023-04-15 09:11:00 190.5 cm [facility] Body weight 2023-04-15 09:11:00 149.687 kg [facility] BMI 2023-04-15 09:11:00 41.25 kg/m2 [facility] Systolic blood pressure 2022-11-21 22:14:00 122 mm[Hg] [facility] Diastolic blood pressure 2022-11-21 22:14:00 82 mm[Hg] [facility] Heart rate 2022-11-21 22:14:00 76 /min [facility] Respiratory rate 2022-11-21 22:14:00 16 /min [facility] Oxygen saturation in Arterial blood by Pulse oximetry 2022-11-21 22:14:00 96 /min [facility] Body temperature 2022-11-21 18:37:00 36.83 Char [facility] Body height 2022-11-21 18:37:00 190.5 cm [facility] Body weight 2022-11-21 18:37:00 154.223 kg [facility] BMI 2022-11-21 18:37:00 42.50 kg/m2 [facility] BP Diastolic 2021-05-08 00:00:00 82 mm[Hg] [facility] Height 2021-05-08 00:00:00 74 [in_i] [facility] BMI (Body Mass Index) 2021-05-08 00:00:00 41.1 kg/m2 [facility] BP Systolic 2021-05-08 00:00:00 124 mm[Hg] [facility] Body Weight 2021-05-08 00:00:00 5120 [oz_av] [facility] Systolic blood pressure 2021-02-13 05:30:00 115 mm[Hg] [facility] Diastolic blood pressure 2021-02-13 05:30:00 83 mm[Hg] [facility] Heart rate 2021-02-13 05:30:00 78 /min [facility] Respiratory rate 2021-02-13 05:30:00 19 /min [facility] Oxygen saturation in Arterial blood by Pulse oximetry 2021-02-13 05:30:00 97 /min [facility] Body temperature 2021-02-13 03:30:00 36.94 Char [facility] Body height 2021-02-13 03:30:00 188 cm [facility] Body weight 2021-02-13 03:30:00 137.939 kg [facility] BMI 2021-02-13 03:30:00 39.04 kg/m2 [facility] Procedures Procedure Date / Time Performed Performing Clinicia n Source XR CHEST 1 VW 2023-04-15 09:40:04 Eva Ramirez [facility] TROPONIN I 2023-04-15 09:32:00 Eva Ramirez [facility] COMP. METABOLIC PANEL ([id number]) 2023-04-15 09:32:00 Eva Ramirez [facility] CBC WITH DIFF 2023-04-15 09:32:00 Eva Ramirez [facility] N-TERMINAL PRO-BNP 2023-04-15 09:32:00 Eva Ramirez [facility] NOTICE OF PRIVACY PRACTICES 2023-04-15 08:54:44 Doctor Unassigned, [place] [facility] CONSENT/REFUSAL FOR DIAGNOSIS AND TREATMENT 2023-04-15 08:54:28 Doctor Unassigned, [place] [facility] CT LUMBAR SPINE WO CONTRAST 2022-11-21 20:32:53 Kane Huffman A [facility] CT THORAX WO CONTRAST 2022-11-21 20:32:53 Chaitanya Huffman A [facility] CONSENT/REFUSAL FOR DIAGNOSIS AND TREATMENT 2022-11-21 18:27:20 Doctor Unassigned, [place] [facility] URINALYSIS 2021-02-13 04:20:00 Eva Ramirez [facility] BASIC METABOLIC PANEL (NA, K, CL, CO2, GLUCOSE, BUN, CREATININE, CA) 2021-02-13 04:08:00 Eva Ramirez [facility] CBC WITH DIFF 2021-02-13 04:08:00 Eva Ramirez [facility] NOTICE OF PRIVACY PRACTICES 2021-02-13 03:11:24 Doctor Unassigned, [place] [facility] CONSENT/REFUSAL FOR DIAGNOSIS AND TREATMENT 2021-02-13 03:10:40 Doctor Unassigned, [place] [facility] Procedure on Hand [place] [facility] Repair of Testis [place] [facility] Repair of Ankle [place] [facility] Knee Surgery [facility] Encounters Start Date/Time End Date/Time Encounter Type Admission Type Attending Clinicians Care Facility Care Department Encounter ID Source 2023-06-23 10:00:00 2023-06-23 10:00:00 Outpatient R SUSSY FROST STRAHIL [facility] [id number] [facility] 2023-05-22 00:00:00 2023-05-22 00:00:00 Telephone Sussy Frost [facility] 1.84.114 350.1.13.10 4.2.7.2.686 [id number] [facility] 2023-04-15 03:08:00 2023-04-15 05:41:00 Emergency X CARLITOSRAJESHKELLYEVA [facility] ERT [id number] [facility] 2023-04-15 03:08:00 2023-04-15 05:41:00 Emergency Adi Ramirezbenson S [facility] 1.84.114 350.1.13.10 4.2.7.2.686 [id number] [facility] 2023-04-15 00:00:00 2023-04-15 00:00:00 Orders Only Doctor Unassigned, [place] [facility] 1.84.114 350.1.13.10 4.2.7.2.686 [id number] [facility] 2022-11-21 13:42:00 2022-11-21 17:40:00 Emergency Kane Huffman A [facility] 1.840.114 350.1.13.10 4.2.7.2.686 [id number] [id number] [facility] 2022-11-21 13:42:00 2022-11-21 17:40:00 Emergency X KANE HFUFMAN [facility] ERT [id number] [facility] 2022-01-07 14:00:00 2022-01-07 14:00:00 Outpatient R FRANKLIN ALBER [facility] [id number] [facility] 2022-01-05 10:00:00 2022-01-05 10:00:00 Outpatient R OSIRISJERILYNBHAVNARANDOLPH [facility] [id number] [facility] 2021-07-30 15:00:00 2021-07-30 15:00:00 Outpatient R LESTER ARTEAGA [facility] [id number] [facility] 2021-05-12 08:40:00 2021-05-12 08:40:00 Outpatient ERICKSON_R [facility] [address] [place] [facility] 2021-05-09 09:40:00 2021-05-09 09:40:00 Outpatient ERSTACION_R [facility] [address] [place] [facility] 2021-05-08 06:02:00 2021-05-08 06:02:00 Outpatient ERICKSON_R [facility] 0[address] [place] [facility] 2021-05-08 00:00:00 2021-05-08 00:00:00 Werner Zavaleta, DO: [address] , [place] [address] , Ph. [facility] - [facility] - [facility], DR. ZAVALETA [id number] [place] [facility] 2021-05-08 00:00:00 2021-05-08 00:00:00 Outpatient Werner Zavaleta [facility] [id number] [id number]-b [id number] [id number] 2021-02-12 22:35:00 2021-02-13 01:24:00 Emergency Eva Ramirez [facility] 1.2.840.114 350.1.13.10 4.2.7.2.686 [id number] [facility] 2021-02-12 22:35:00 2021-02-13 01:24:00 Emergency X EVA RAMIREZ [facility] ERT [id number] [facility] 2021-02-12 00:00:00 2021-02-12 00:00:00 Orders Only Doctor Unassigned, [place] [facility] 1.2.840.114 350.1.13.10 4.2.7.2.686 [id number] [facility] Results Test Description Test Time Test Comments Results Result Co mments Source [facility]Troponin S2371-43-01 10:25:15* Test Item Value Reference Range Interpretation Comme nts TROPONIN I (test code = 8014834093) 0.006 ng/mL <=0.034 HUGH (test code = [...] of biotin. Lab Interpretation (test code = 03376-3) Normal [facility]N-TERMINAL RBN-DDW3226-60-28 10:22:54* Test Item Value Reference Range Interpretation Comme nts NT-proBNP (test code = 28156-1) 32 pg/mL <=125 Lab Interpretation (test cod e = 71792-5) Normal [facility]CMP2023-12-28 10:13:53* Test Item Value Reference Range Interpretation Comme nts NA (test code = 9982801138) 141 mmol/L 135-145 K (test code = 7560493992) 3.9 mmol/L 3.5-5.0 CL (test code = 9372504004) 109 mmol/L 98-108 H CO2 TOTAL (test code = 3585570772) 25 mmol/L 23-31 AGAP (test code = 3965026860) 7 2-16 BUN (test code = 8646518970) 23 mg/dL 7-23 GLUCOSE (test code = 9793016434) 155 mg/dL 70-110 H CREATININE (test code = 2277912754) 0.70 mg/dL 0.60-1.25 TOTAL BILI (test code = 2384660391) 0.4 mg/dL 0.1-1.1 CALCIUM (test code = 6748618727) 8.8 mg/dL 8.6-10.6 T PROTEIN (test code = 3359348665) 6.8 g/dL 6.3-8.2 ALBUMIN (test code = 2107501744) 3.7 g/dL 3.5-5.0 ALK PHOS (test code = 3286699169) 58 U/L 34-122 ALTv (test code = 1742-6) 32 U/L 5-50 AST(SGOT) (test code = 6777565002) 27 U/L 13-40 eGFR (test code = 53651-4) 114.4 mL/min/1.73m2 CKD-EPI eGFR (2020). Assuming creatinine has been stable day-to-day for at least three months, the eGFR indicates Category G1 (>= 90 mL/min/1.73 m2) Lab Interpretation (test code = 51889-5) Abnormal [facility] Chest 1 [id number] 09:50:51Examination: Chest one view (portable frontal) Ordering Physician: POLLY RAMIREZ Date: 04/15/2023 3:30 AM History: ? STEMI ? Comparison: None available Findings: AP chest, 2 images submitted for review. Pulmonary vascularity appears normal. The lungs are clear. There is nosignificant pleural effusion evident. There is no significant pneumothoraxevident. Heart size is normal.[facility] (NA, K, CL, CO2, GLUCOSE, BUN, CREATININE, CA)2021-02-13 04:53:21* Test Item Value Reference Range Interpretation Comme nts NA (test code = 7770325966) 137 mmol/L 135-145 K (test code = 7861128104) 3.8 mmol/L 3.5-5.0 CL (test code = 4882968979) 107 mmol/L 98-108 CO2 TOTAL (test code = 6694641036) 27 mmol/L 23-31 AGAP (test code = 6578644441) 2-16 BUN (test code = 6300916194) 15 mg/dL 7-23 GLUCOSE (test code = 4372728272) 133 mg/dL 70-110 H CREATININE (test code = 0763180346) 1.07 mg/dL 0.60-1.25 CALCIUM (test code = 2615200034) 8.8 mg/dL 8.6-10.6 eGFR (test code = 2277992137) mL/min/1.73m2 HUGH (test code = HUGH) Association [...] imaging tests). Lab Interpretation (test code = 23294-0) Abnormal [facility] WITH BFNH9538-50-78 04:33:05* Test Item Value Reference Range Interpretation Comme nts WBC (test code = 6690-2) See_Comment [Automated [employer]] The system which generated this result transmitted reference range: 4.20 - 10.70 10*3/?L. The reference range was not used to interpret this result as normal/abnormal. RBC (test code = 789-8) See_Comment [Automated [employer]] The system which generated this result transmitted [...] 33.7 g/dL 31.2-35.0 RDW-SD (test code = 00792-0) 39.7 fL 38.5-51.6 RDW-CV (test code = 788-0) 12.9 % 12.1-15.4 PLT (test code = 777-3) See_Comment [Automated [employer] ge] The system which generated this result transmitted reference range: 150 - 328 10*3/?L. The reference range was not used to interpret this result as normal/abnormal. MPV (test code = 85253-4) 10.0 fL 9.8-13.0 NRBC/100 WBC (test code = 2200353248) See_Comment [Automated [employer] ssage] The system which generated this result transmitted reference range: 0.0 - 10.0 /100 WBCs. The reference range was not used to interpret this result as normal/abnormal. NRBC x10^3 (test code = 3926483089) <0.01 See_Comment [Automated me ssage] The system which generated this result transmitted reference range: 10*3/?L. The reference range was not used to interpret this result as normal/abnormal. GRAN MAT (NEUT) % (test code = 770-8) 49.2 % IMM GRAN % (test code = 0429290680) 0.50 % LYMPH % (test code = 736-9) 37.3 % MONO % (test code = 5905-5) 9.2 % EOS % (test code = 713-8) 2.8 % BASO % (test code = 706-2) 1.0 % GRAN MAT x10^3(ANC) (test code = 3679416567) 3.75 10*3/uL 1.99-6.95 IMM GRAN x10^3 (test code = 0217814440) 0.04 10*3/uL 0.00-0.06 LYMPH x10^3 (test code = 731-0) 2.84 10*3/uL 1.09-3.23 MONO x10^3 (test code = 742-7) 0.70 10*3/uL 0.36-1.02 EOS x10^3 (test code = 711-2) 0.21 10*3/uL 0.06-0.53 BASO x10^3 (test code = 704-7) 0.08 10*3/uL 0.01-0.09 [facility] Notes Date/Time Note Provider Source 2023-05-24 12:13:18 5rmZy8RR00ufO+k+9Vr9 miTYPiqgnKG9g/g iSsw2U4HsuDWu2vmjkpucpBmphYEX7789-1 05-24T12:13:18 Contacted patients spouse and offered a sooner appointment. 68916-8Hwuftjujv encounter JouzKJ9070-58-99Y67:14:10Telephone encounter NoteTXT1.2.840.977807.1.13.104.2.7. 2.060842|[id number] for patient firb13640-3JailZZEBDCPJGCPGqkgnjtmn C-CDA narrative qrdf386748745Jbvwn [id number] 4KKWUSBBNHGAFAKOAJWWBAL6997-54-58R7 2:14:101.2.840.788745.1.72.3.15|1.2 .840.954459.1.13.104.2.7.2.727879_2 [id number] Rosalinda Portillo [facility] 2023-05-22 14:56:15 pZnsDs68YE/8JVSTwtuV Yp1SU4Ivqr87bSS jI53pfzZMNY5MMFBaoUfBg3PTjN8F1738-1 4:56:15 Zachary Keating is a 48 year old malePatient prefers sooner appointment. Currently scheduled first available and added to waitlist. Patient's is aware the clinic will contact with sooner availability.Please contact 's contact number. 84768-5Nyntrovww encounter VehiUG2021-09-65N93:58:24Telephone encounter NoteTXT1.2.840.734782.1.13.104.2.7. 2.022556|[id number] for patient ehll76188-5QunkAPIXZLSLBFWRndlpkuun C-CDA narrative bomv778117635Cjvfiz [id number] 7VQNNMSIYQZDIAQRQESLFJZ1148-21-92V0 4:58:241.2.840.915217.1.72.3.15|1.2 .840.869761.1.13.104.2.7.2.727879_2 [id number] Servando Addison [facility] 2023-04-15 05:40:20 m2lhYpuWBs5KWi2ECPjP pYoGClQRFopHxET 8Af273Xn0Xrl4l552Zze734TKcW7U4208-7 05:40:20 Pt given printed and verbal discharge [...] with steady gait, in no apparent distress, 23092-8Yuywftdff department NhfoEN7561-39-17X09:41:45Emergency department NoteTXT1.2.840.122268.1.13.104.2.7. 2.344174|[id number] for patient vezx44928-2VzhiTEWBRTGDIPWHtnggmncd C-CDA narrative text[address] LrrbOkbbyhuqiJfbhxxqdrTHRV957970285 8NUDVQSGDCVQMVMNYEENUGN8913-89-21I7 5:41:451.2.840.963944.1.72.3.15|1.2 .840.306257.1.13.104.2.7.2.727879_1 [id number] [facility] 2023-04-15 03:08:52 mHHrQsJJNqyQfRpQu88H IVWvJfDg8uDa8u7 r/nZ/vOXs5iCwtoGdS549grM2kt+u6704-9 03:08:52 Pt states " I fell like shit. I can't breathe, I have COPD. I can't stop coughing. My inhaler is not working and neither is my breathing treatments." 76120-8Tljkihgqv department Triage rfkqNX5075-43-53C14:10:01[facility] department Triage noteTXT1.2.840.636968.1.13.104.2.7. 2.624241|[id number] for patient pudz59397-4Cvambibxa department NoteLNNARRATIVEFormatted C-CDA narrative textUT[address] IqreZgpjcazogJyfihcovpGGVM808761775 2GQCPBQFEQEWBVLJWNAOUZV3740-62-66T3 3:10:011.2.840.902852.1.72.3.15|1.2 .840.802389.1.13.104.2.7.2.727879_1 [id number] [facility] 2023-04-15 02:55:00 4m1P2CWiQnajl/abqB84 R+AfuTioui2adkn 3DjtiW9MN4ZrDPX2ItdWoSCLprVni2964-0 02:55:00 [facility] Emergency Department NotePatient Name: Zachary Dalton of : 1975 48 year old maleTreatment Room: NM3/JJ6Zzciunq Record Number: [id number] Care Physician: Freya MorenoPatient Escorted by: Self [9]Mode of Arrival: Personal means [1]EMS Treatment Prior to ED Arrival:CUSTOMER SERVICE SUPERVISOR treatment: Medication (comment)CUSTOMER SERVICE SUPERVISOR treatment comments: inhaler, z-pack, breathing treatmentTravel and [...] and generalized aches. Pt was evaluated in :[place] X 2 and has work-up including Covid-19 and Influenza that was reportedly negativeHistory provided by: Medical records and patientLanguage sales enablement consultant used: NoCoughSeverity: ModerateOnset quality: GradualDuration: 2 weeksTiming: [...] of acute cardiopulmonary disease.Technical Quality: AdequateRL: 109AFC: 93988Pgv of report Lab Results:Lab ResultsCBC WITH DIFF [...] 0.06 0.01 - 0.09 10*3/uLCOMP. METABOLIC PANEL (69271) - AbnormalNA 141 135 - 145 mmol/LK [...] U/LAST(SGOT) 27 13 - 40 U/LeGFR 114.4 mL/min/1.53u8BTMAYVNC I - NormalTROPONIN I 0.006 <=0.034 ng/mLN-TERMINAL [...] nebulizer solutionFirst Provider Eval:ED EventsDate/Time Event User Hiownaes49/28/23310 Medical Screening Begins EVA RAMIREZ MD --04/15/23310 [...] follow-upSDb gore, DOSpecialty: IM-PULMONARY DISEASE, IM-CRITICAL CARE MEDICINEMESILLA VALLEY [facility] AND AJBBYDY2284 [facility] [address]Prnpd: [phone] signed by:Eva Ramirez MD04/15/23 0537 93514-3Sbyrlehxs Emergency department KyxrOW9913-36-71X10:37:25Physician Emergency department NoteTXT1.2.840.352128.1.13.104.2.7. 2.928981|[id number] for patient bvdn83113-8Eyluvblhv department NoteLNNARRATIVEFormatted C-CDA narrative [address] X[id number] 1MFJAPOMJFOCUSOIGIUBAMR2896-73-97O8 5:37:251.2.840.430253.1.72.3.15|1.2 .840.259038.1.13.104.2.7.2.727879_1 [id number] [facility] 2022-11-21 18:11:41 SAurctMnaP1r6TrTsJuN /mhoxuMypQit+ci D2ZWDwR9YRycv9CXHmCmmw+38XGG35814-8 11-21T18:11:41 Pt given printed and verbal discharge instructions regarding fall, rib fracture, knee pain, encouraged hydration.2 Prescriptions sent to pharmacy.Discussed ibuprofen and to take with food to avoid GI distress.Discussed Tylenol # 3/[place] side affects and to avoid driving/operating machinery/or [...] leaving via wheelchair, in no apparent distress. 64576-4Ywzorftpd department TrddHD9017-16-87X13:13:33[facility] department NoteTXT1.2.840.118111.1.13.104.2.7. 2.108872|[id number] for patient wyes23716-4KkykZV404390665Bvpcsu M Herrera RN[address]YuroKpuaxehzvAamjyxbvzWYHU936963972 7OFRBLLHFDUVIWPPLRTFUOH1544-70-73P8 8:13:331.2.840.804120.1.72.3.15|1.2 .840.918074.1.13.104.2.7.2.727879_1 [id number] Shell Sears RN [facility] 2022-11-21 13:35:53 GKHDnTl6ZLxWUtlSzRBr MUHBIuVse888Xtc ZnTj2CdhDLn9eYmgTXJPw/7n0IdPo3926-7 3:35:53 Patient states: "About 1.5 hours ago I was playing basketball, went up for a rebound. I fell and landed on my hand on my left ribs with some people on top of me. I'm having bad rib pain and shortness of breath. Also my right knee hurts pretty bad" 02804-5Wigbobsma department Triage yqxvZX0580-10-48S49:36:53[facility] department Triage noteTXT1.2.840.946217.1.13.104.2.7. 2.121223|[id number] for patient bpjc39700-7Qcvghpppl department MndnKL296348858Nytlv M Cruz RNUT[address] WtfkDqncygicuHoxyvirxbITSZ633864938 5NLTCQGDPHGPCJUCNLJUTFB6424-65-09I4 3:36:531.2.840.152003.1.72.3.15|1.2 .840.142318.1.13.104.2.7.2.727879_1 [id number] Sowmya Rhea Arndt RN [facility] 2022-11-21 13:27:00 BFPT+gqqxg4ogI2E4N5j 0RgpNDYhYnimpXk DX6SQBbZ83cn+D0sOXLiEkk6n7dUx6411-3 3:27:00 [facility] Emergency Department NotePatient Name: Zachary Moodyte of : 1975 47 year old maleTreatment Room: [place] [address]Medical Record Number: [id number] Care Physician: Kye EstebansPpaul Escorted by: Family [5]Mode of Arrival: Personal means [1]EMS Treatment Prior to ED Arrival:CUSTOMER SERVICE SUPERVISOR treatment: None Travel and Exposure Screening:SymptomsDoes patient [...] No significant spinal canal stenosis. RL: [facility]: [address] End of report. THORAX WO CONTRAST Final [...] and comfortable with plan. Procedures: ProceduresMDM:Medical Decision Frbtot51 yo M presents after fallProblems Addressed:Fall, initial [...] Follow-up:Electronically signed by: Kane Huffman MD11/21/22 1708 53864-4Firxfgrxc Emergency department KriyZY5391-80-52N91:08:54Physician Emergency department NoteTXT1.2.840.561729.1.13.104.2.7. 2.683154|[id number] for patient himu79797-5Skamelzzp department Note[address] WcelXydxipvyhCgolbytnwZCJZ033989925 0FHQPJVKSWQIAEPUFOZBSDP2784-42-93J0 7:08:541.2.840.909139.1.72.3.15|1.2 .840.073151.1.13.104.2.7.2.727879_1 [id number] [facility]
[2023-07-13 23:49] LABS: Absolute Basophils 0.1 K/uL (0-0.5); Absolute Eosinophils 0.2 K/uL (0-0.5); Absolute Lymphocytes (CBC) 2.7 K/uL (0.7-4.9); Absolute Monocytes 0.9 K/uL (0.1-1.3); Absolute Neutrophil 7.9 K/uL (1.8-8.0); Basophils % 1.1 % (0-1.3); Eosinophils % 1.4 % (0-4.4); Hematocrit 42.9 % (39.6-49.0); Hemoglobin 14.6 g/dL (13.6-17.9); Lymphocytes % 22.6 % (15.3-44.8); MCH 29.4 pg (27.0-35.0); MCV 86.4 fL (80-100); Monocytes % 7.6 % (3.3-12.3); Neutrophils % 67.3 % (41.7-73.7); Nucleated Red Blood Cells % 0.1 % (0-0); Platelets 166 thou/uL (152-406); RBC Red Blood Cell Count 4.96 M/uL (4.33-5.43); Red Cell Distribution Width 13.5 % (12.1-15.2)
[2023-07-13 23:58] LABS: Anion Gap 7.8 mEq/L (5.0-15.0); Potassium 3.8 mEq/L (3.5-5.1)
--- NOTE | 2023-07-14 01:56 | EDPHYS ---
Physician Documentation [facility] Name: Dennis Keating Age: 48 yrs Sex: Male : 1975 Arrival Date: 07/13/2023 Time: 23:16 Bed 3 Private MD: ED Physician Carmine Coy HPI: 07/12 23:18 This 48 yrs old Male presents to ER via Unassigned with complaints of Chest Pain. kb 23:18 Patient is a 48-year-old male who presents for substernal chest pain that radiates to kb left arm that started 30 minutes prior to arrival. Reports shortness of breath. Denies nausea, vomiting, diaphoresis. No aggravating or alleviating factors. States this feels similar to previous MT.. 07/13 01:34 Patient's care assumed from physician assistant professor sculpture at 1 AM. Patient's prior records sp4 reveals 3 prior visits this month with this one being fourth visit this month. Patient was assessed on 06/21/2023 for acute abdominal pain and had negative CT abdomen pelvis with IV contrast. Patient was went and assessed on 07/04/2023 and 07/05/2023 for acute abdominal pain with CT abdomen pelvis being negative. Today patient presents for substernal chest pain with radiation to the left arm. . Historical: - Allergies: 07/12 23:21 Aspirin; bm8 23:21 Cipro PO; bm8 23:21 PENICILLINS; bm8 23:21 Ibuprofen; bm8 23:21 Toradol; bm8 - Home Meds: 23:21 Trazodone Oral [Active]; Albuterol Inhl [Active]; Adderall XR Oral [Active]; Clinton Oral bm8 [Active]; - PMHx: 23:21 Back pain; Chronic obstructive lung disease; CHRONS; Diverticulitis; Myocardial bm8 infarction; - PSHx: 23:21 Ankle; foot; bowel resection; knee; hand; testicle; bm8 - Immunization history:: Adult Immunizations up to date. - Social history:: Smoking status: Patient reports the use of cigarette tobacco products, smokes one-half pack cigarettes per day. ROS: 23:18 Constitutional: As per HPI kb Exam: 23:18 Constitutional: This is a well developed, well nourished patient who is awake, alert, kb and in no acute distress. Head/Face: Normocephalic, atraumatic. ENT: Moist Mucous membranes Cardiovascular: Regular rate Respiratory: Respirations even and unlabored. No increased work of breathing. Talking in full sentences Skin: Warm, dry with normal turgor. Normal color. MS/ Extremity: Pulses equal, no cyanosis. Neurovascular intact. Full, normal range of motion. Neuro: Awake and alert, GCS 15, oriented to person, place, time, and situation. Moves all extremities. Normal gait. Vital Signs: 23:18 BP 134 / 81; Pulse 88; Resp 20; Temp 97.3; Pulse Ox 96% on R/A; Weight 163.29 kg; bm8 Height 6 ft. 3 in. ; Pain 10/10; 07/13 00:01 BP 115 / 78; Pulse 87; Resp 20; Temp 97.3; Pulse Ox 96% on R/A; Pain 10/10; bm8 00:56 BP 109 / 70; Pulse 81; Resp 18; Temp 97.3; Pulse Ox 95% on R/A; Pain 9/10; bm8 01:30 BP 107 / 66; Pulse 79; Resp 17; Pulse Ox 94% ; vc1 07/12 23:18 Body Mass Index 45.00 (163.29 kg, 190.5 cm) 8 07/12 23:18 Pain Scale: Adult bm8 07/13 00:01 Pain Scale: Adult bm8 00:56 Pain Scale: Adult bm8 Lynwood Coma Score: 07/12 23:26 Eye Response: spontaneous(4). Motor Response: obeys commands(6). Verbal Response: bm8 oriented(5). Total: 15. 07/13 00:56 Eye Response: spontaneous(4). Motor Response: obeys commands(6). Verbal Response: bm8 oriented(5). Total: 15. MDM: 07/12 23:18 Patient medically screened. kb 23:19 Differential diagnosis: abnormal EKG, acute myocardial infarction, coronary artery kb disease chest wall pain. The patient was not given aspirin in the Emergency Department. Administered by EMS. Data reviewed: vital signs, nurses notes. Historians other than the Patient: EMS: [facility]. 07/13 00:08 ED course: HEART score 4. kb 00:09 Transition of care: After a detail discussion of the patient's case, care is kb transferred to Carmine Coy MD. 00:38 ED course: Chest x-ray revealed no acute cardiopulmonary process. . sp4 01:55 HEART Score: History: Slightly Suspicious (0), ECG: Normal (0), Age: > 45 and < 65 sp4 years (1), Risk Factors: 1 or 2 risk factors (1), Troponin: < or = 1 x Normal Limit (0), Total Score = 2. ED course: And troponin today is negative. Patient stable for discharge home. Will refer to fixture maker. . 07/12 23:18 Order name: Basic Metabolic Panel; Complete Time: 00:07 kb 07/12 23:18 Order name: CBC with Diff; Complete Time: 23:50 kb 07/12 23:18 Order name: Troponin HS; Complete Time: 00:07 kb 07/13 00:34 Order name: Troponin High Sensitivity; Complete Time: 01:53 sp4 07/12 23:18 Order name: XRAY Chest (1 view) kb 07/12 23:18 Order name: EKG; Complete Time: 23:19 kb 07/12 23:18 Order name: Cardiac monitoring; Complete Time: 23:29 kb 07/12 23:18 Order name: EKG - Nurse/Tech; Complete Time: 23:29 kb 07/12 23:18 Order name: IV Saline Lock; Complete Time: 23:29 kb 07/12 23:18 Order name: Labs collected and sent; Complete Time: 23:29 kb 07/12 23:18 Order name: O2 Per Protocol; Complete Time: 23:29 kb 07/12 23:18 Order name: O2 Sat Monitoring; Complete Time: 23:29 kb Administered Medications: 07/12 23:20 Drug: morphine 2 mg IVP once over 4 mins Route: IVP; Infused Over: 4 mins; Site: left vc1 antecubital; 07/13 01:26 Follow up: Response: No adverse reaction [facility] 07/12 23:20 Drug: Zofran (Ondansetron) 4 mg IVP once; over 2 minutes Route: IVP; Site: left vc1 antecubital; 07/13 01:26 Follow up: Response: No adverse reaction [facility] 07/12 23:42 Drug: morphine IVP or IV 2 mg IVP once over 4 mins Route: IVP; Infused Over: 4 mins; bm8 Site: left antecubital; 07/13 01:26 Follow up: Response: No adverse reaction bm8 01:26 Drug: Acetaminophen PO 1000 mg PO once Route: PO; bm8 Disposition: 00:46 Co-signature as Attending Physician, Carmine Coy MD I agree with the assessment sp4 and plan of care. I reviewed the patient's care provided by Advanced Practice Provider \T\ agree w/ the diagnosis \T\ care plan. I personally saw the pt \T\ performed a substantive portion of the visit, incldng all aspects of the (History/Exam/Medical Decision Making). Disposition Summary: 07/14/23 01:56 Discharge Ordered Problem: new sp4 Symptoms: have improved sp4 Condition: Stable sp4 Diagnosis - Chest pain, unspecified sp4 Followup: sp4 - With: Dusty Alva MD - When: 7 - 10 days - Reason: Recheck today's complaints Discharge Instructions: - Discharge Summary Sheet sp4 - Nonspecific Chest Pain, Adult, Uokp-wq-Hysy sp4 Forms: - Patient Portal Instructions sp4 Signatures: Dispatcher [employer] EDKaren Rivera, PRECISION CROP MANAGER-C PRECISION CROP MANAGER-Tess Cobb, RN RN vc1 Carmine Coy MD MD sp4 Abhi Rai RN RN bm8
--- NOTE | 2023-07-14 01:56 | ER ---
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 Coronavirus bm8 screen: Vaccine status: Client denies travel out of the [place] in the last 14 days. At this time, the client does not indicate any symptoms associated with coronavirus-19. Ebola Screen: Patient negative for fever greater than or equal to 101.5 degrees Fahrenheit, and additional compatible Ebola Virus Disease symptoms Patient denies exposure to infectious person. Patient denies travel to an Ebola-affected area in the 21 days before illness onset. Initial Sepsis Screen: Does the patient meet any 2 criteria? No. Patient's initial sepsis screen is negative. Does the patient have a suspected source of infection? No. Patient's initial sepsis screen is negative. Risk Assessment: Do you want to hurt yourself or someone else? Patient reports no desire to harm self or others. Onset of symptoms was July 13, 2023 at 22:50. Care prior to arrival: Medication(s) given: ASA, 81 mg, x 4. 23:18 Method Of Arrival: EMS: [place] [id number] 23:18 Acuity: AMNA 2 bm8 Triage Assessment: 23:22 General: Appears distressed, uncomfortable, Behavior is cooperative, appropriate for bm8 age, anxious. Pain: Complains of pain in chest Pain radiates to back and left arm Pain currently is 10 out of 10 on a pain scale. Quality of pain is described as sharp, shooting, Pain began 1 hour ago. Is continuous. EENT: No deficits noted. No signs and/or symptoms were reported regarding the EENT system. Neuro: Level of Consciousness is awake, alert, obeys commands, Oriented to person, place, time, situation. Cardiovascular: Heart tones S1 S2 present Capillary refill < 3 seconds Patient's skin is warm and dry. Pulses are all present. Rhythm is regular Chest pain is described as severe, quality is sharp, is located in substernal area radiates to left arm(s) back began 1 hour prior to arrival episodes are continuous. Respiratory: Airway is patent Respiratory effort is even, unlabored, Respiratory pattern is regular, Breath sounds are clear bilaterally. GI: No deficits noted. No signs and/or symptoms were reported involving the gastrointestinal system. : No deficits noted. No signs and/or symptoms were reported regarding the genitourinary system. Derm: No deficits noted. No signs and/or symptoms reported regarding the dermatologic system. Musculoskeletal: No deficits noted. No signs and/or symptoms reported regarding the musculoskeletal system. Historical: - Allergies: 23:21 Aspirin; bm8 23:21 Cipro PO; bm8 23:21 PENICILLINS; bm8 23:21 Ibuprofen; bm8 23:21 Toradol; bm8 - Home Meds: 23:21 Trazodone Oral [Active]; Albuterol Inhl [Active]; Adderall XR Oral [Active]; [place] Oral bm8 [Active]; - PMHx: 23:21 Back pain; Chronic obstructive lung disease; CHRONS; Diverticulitis; Myocardial bm8 infarction; - PSHx: 23:21 Ankle; foot; bowel resection; knee; hand; testicle; bm8 - Immunization history:: Adult Immunizations up to date. - Social history:: Smoking status: Patient reports the use of cigarette tobacco products, smokes one-half pack cigarettes per day. Screenin:26 [facility] ED Fall Risk Assessment (Adult) History of falling in the last 3 months, bm8 including since admission No falls in past 3 months (0 pts) Confusion or Disorientation No (0 pts) Intoxicated or Sedated No (0 pts) Impaired Gait No (0 pts) Mobility Assist Device Used No (0 pt) Altered Elimination No (0 pt) Score/Fall Risk Level 0 - 2 = Low Risk. [facility] ED Fall Risk Assessment (Adult) Score/Fall Risk Level 0 - 2 = Low Risk Oriented to surroundings, Maintained a safe environment, Educated pt \T\ family on fall prevention, incl call for assistance when getting out of bed. Abuse screen: Denies threats or abuse. Nutritional screening: No deficits noted. Tuberculosis screening: No symptoms or risk factors identified. Assessment: 23:26 Reassessment: see traige note. bm8 23:59 Reassessment: informed GALLEY COOK of PTs reported pain even after pain medication administered. bm8 GALLEY COOK stated that she was waiting for further results.. Pain: Complains of pain in left breast Pain radiates to back Pain currently is 10 out of 10 on a pain scale. Quality of pain is described as sharp. 07/13 00:56 Reassessment: Patient appears in no apparent distress at this time. Patient and/or bm8 family updated on plan of care and expected duration. Pain level reassessed. Patient is alert, oriented x 3, equal unlabored respirations, skin warm/dry/pink. Pain: Complains of pain in left breast Pain radiates to left arm Pain currently is 9 out of 10 on a pain scale. Quality of pain is described as sharp. Neuro: Level of Consciousness is awake, alert, obeys commands, Oriented to person, place, time, situation. Cardiovascular: Heart tones S1 S2 present Capillary refill < 3 seconds Patient's skin is warm and dry. Pulses are all present. Cardiovascular: Rhythm is regular Chest pain is described as severe, quality is sharp, is located in left radiates to left arm(s). Respiratory: Airway is patent Respiratory effort is even, unlabored, Respiratory pattern is regular. GI: No deficits noted. No signs and/or symptoms were reported involving the gastrointestinal system. : No deficits noted. No signs and/or symptoms were reported regarding the genitourinary system. EENT: No deficits noted. No signs and/or symptoms were reported regarding the EENT system. Derm: No deficits noted. No signs and/or symptoms reported regarding the dermatologic system. Musculoskeletal: No deficits noted. No signs and/or symptoms reported regarding the musculoskeletal system. 00:56 Reassessment: MD made aware of PT's continued chest pain. awaiting further orders. bm8 01:57 Reassessment: Patient appears in no apparent distress at this time. No changes from vc1 previously documented assessment. Patient and/or family updated on plan of care and expected duration. Pain level reassessed. Patient is alert, oriented x 3, equal unlabored respirations, skin warm/dry/pink. Vital Signs: 07/12 23:18 BP 134 / 81; Pulse 88; Resp 20; Temp 97.3; Pulse Ox 96% on R/A; Weight 163.29 kg; bm8 Height 6 ft. 3 in. ; Pain 10/10; 07/13 00:01 BP 115 / 78; Pulse 87; Resp 20; Temp 97.3; Pulse Ox 96% on R/A; Pain 10/10; bm8 00:56 BP 109 / 70; Pulse 81; Resp 18; Temp 97.3; Pulse Ox 95% on R/A; Pain 9/10; bm8 01:30 BP 107 / 66; Pulse 79; Resp 17; Pulse Ox 94% ; vc1 07/12 23:18 Body Mass Index 45.00 (163.29 kg, 190.5 cm) bm8 07/12 23:18 Pain Scale: Adult bm8 07/13 00:01 Pain Scale: Adult bm8 00:56 Pain Scale: Adult bm8 Dre Coma Score: 07/12 23:26 Eye Response: spontaneous(4). Motor Response: obeys commands(6). Verbal Response: bm8 oriented(5). Total: 15. 07/13 00:56 Eye Response: spontaneous(4). Motor Response: obeys commands(6). Verbal Response: bm8 oriented(5). Total: 15. ED Course: 07/12 23:17 Patient arrived in ED. bm8 23:18 Abhi Rai, RN is Primary Nurse. bm8 23:18 [facility] Shepp[facility]C [facility]. kb 23:18 Carmine Coy MD is Attending Physician. kb 23:21 Triage completed. bm8 23:22 Arm band placed on right wrist. EKG completed in triage. Results shown to MD. EKG done bm8 per protocol. Performed by ED Staff. Labs ordered per protocol. Drawn by ED staff. X-ray ordered. 23:26 Patient has correct armband on for positive identification. Placed in gown. Bed in low bm8 position. Side rails up X2. Provided Education on: pt educated on plan of care for this er visit. seam closer on. Pulse ox on. NIBP on. Door closed. Noise minimized. Visitors limited. Warm blanket given. Head of bed elevated. 23:26 No provider procedures requiring assistance completed. Initial lab(s) drawn, by ED bm8 staff, sent to lab. EKG done, by ED staff, reviewed by Karen MIRELES. Inserted saline lock: 20 gauge in left antecubital area, using aseptic technique. Blood collected. Patient maintains SpO2 saturation greater than 95% on room air. 23:29 Basic Metabolic Panel Sent. vc1 23:29 CBC with Diff Sent. vc1 23:31 XRAY Chest (1 view) In Process Unspecified. EDMS 07/13 00:56 Awaiting lab results. bm8 00:56 Repeat lab(s) drawn. by il, sent to lab. bm8 01:56 Dusty Alva MD is Referral Physician. sp4 02:07 IV discontinued, intact, bleeding controlled, No redness/swelling at site. Pressure vc1 dressing applied. Administered Medications: 07/12 23:20 Drug: morphine 2 mg IVP once over 4 mins Route: IVP; Infused Over: 4 mins; Site: left vc1 antecubital; 07/13 01:26 Follow up: Response: No adverse reaction bm8 07/12 23:20 Drug: Zofran (Ondansetron) 4 mg IVP once; over 2 minutes Route: IVP; Site: left vc1 antecubital; 07/13 01:26 Follow up: Response: No adverse reaction bm8 07/12 23:42 Drug: morphine IVP or IV 2 mg IVP once over 4 mins Route: IVP; Infused Over: 4 mins; bm8 Site: left antecubital; 07/13 01:26 Follow up: Response: No adverse reaction bm8 01:26 Drug: Acetaminophen PO 1000 mg PO once Route: PO; bm8 Medication: 07/12 23:26 VIS not applicable for this client. bm8 Outcome: 07/13 01:56 Discharge ordered by . sp4 02:06 Discharged to home ambulatory, with significant other, vc1 02:06 Condition: good 02:06 Discharge instructions given to patient, Instructed on discharge instructions, follow up and referral plans. Demonstrated understanding of instructions, follow-up care, 02:08 Patient left the ED. vc1 Signatures: Dispatcher [employer]CO Karen Sheppard, [employer] WORK[employer] KIANNA-Tess Cobb RN RN vc1 Carmine Coy MD MD sp4 Abhi Rai, RN RN bm8
[2023-07-14 02:33] VITALS: BP 107/66; TEMP 97.3; O2SAT 94
--- NOTE | 2023-07-14 10:13 | RAD REPORT ---
EXAM DESCRIPTION: RAD - Chest Single View - 07/13/2023 11:30 pm CLINICAL HISTORY: 8 years Male, CHEST PAIN COMPARISON: Chest radiograph dated 05/10/2023 FINDINGS: No focal lung consolidation. No pleural effusion. No pneumothorax. Cardiomediastinal silhouette is within normal limits. No acute osseous abnormality. IMPRESSION: No acute cardiopulmonary disease. Electronically signed by: Gabriel Saucedo DO 07/13/2023 11:47 PM CDT Due to temporary technical issues with the PACS/Fluency reporting system, reports are being signed by the in house radiologist without review as a courtesy to ensure prompt reporting. The interpreting r adiologist is fully responsible for the content of the report.
--- NOTE | 2023-07-14 12:47 | EKG ---
Test Date: 2023-07-13 Test Time: 22:07:56 Shoe Cobbler: FLORENCIA MEASUREMENT RESULTS: Intervals: Rate: 93 AR: 142 QRSD: 90 QT: 364 QTc: 452 Closplint: P: 73 AR: 142 QRS: 58 T: 59 INTERPRETIVE STATEMENTS: Normal sinus rhythm Normal ECG Compared to ECG 06/21/2023 05:33:43 Left bundle-branch block no longer present Electronically Signed On 07-14-23 12:45:20 CDT by Dusty Alva
== END ==
LOC: ER 23:16
DX: R07.9 Chest pain, unspecified (principal); J44.9 Chronic obstructive pulmonary disease, unspecified; I25.2 Old myocardial infarction; F17.210 Nicotine dependence, cigarettes, uncomplicated; Z88.0 Allergy status to penicillin; Z88.1 Allergy status to other antibiotic agents; Z88.5 Allergy status to narcotic agent; Z88.6 Allergy status to analgesic agent
CPT/HCPCS: 85025; 80048; 36415; 84484; 71045; J2270 ×2; J2405; 93005

== ENCOUNTER 2023-08-05 20:08 | Inpatient (IN) | payer OTHER ==
--- OUTSIDE RECORDS SUMMARY | 2023-08-05 20:12 | XMS REPORT | Continuity of Care Document ---
Author Name Unknown Address [address] [facility] [address] [place] [address] [facility] Address [address] [facility]. [address] [place] [address] Care Team Providers Care Angiographer Name Role Phone Tiffanie, Freya Primary Care Physician [phone] SUSSY FROST Attending Clinician SUSSY Kumar Attending Clinician Sussy Kumar MD Attending Clinician EVA RAMIREZ Attending Clinician Unavailable Eva Ramirez MD Attending Clinician [phone] Doctor Unassigned, [place] Attending Clinician U Kane Rabago MD Attending Clinician [phone] KANE HUFFMAN Attending Clinician UnavailALBER De Los Santos Attending Clinician ANA Lord Attending Clinician Unavailable LESTER ARTEAGA Attending Clinician Unavailasa streeter ERICKSON_R Attending Clinician Unavailable Werner Zavaleta Attending Clinician [phone] EVA RAMIREZ Admitting Clinician Unavailable KANE HUFFMAN Admitting Clinician Gerhard GLOVER Admitting Clinician Unavailable Payers Payer Name Policy Type Policy Number Effective Date Expirati on Date Source [facility] [id number] 00:00:00 [employer] MCARE ADV CHOICE PPO [id number] 2021 00:00:00 [facility] (MEDICARE REPLACEMENT/ADVANTA GE - PPO) [id number] Problems Condition Name Condition Details Condition Category Status Onset Date Resolution Date Last Treatment Date Treating Clinician Comments Source Bipolar disorder Bipolar Disorder Problem Active 05-08 00:00: 00 [facility] Depressive disorder Depressive Disorder Problem Active 05[facility]08 [facility] Attention deficit hyperactiv ity disorder Attention Deficit Hyperactiv ity Disorder Problem Active 05-08 00:00: [facility] Hypertensi ve disorder Hypertensi ve Disorder Problem Active 05-08 00:00: 00 [facility] Chronic obstructiv e lung disease Chronic Obstructiv e Lung Disease Problem Active 05-08 00:00: 00 [facility] Crohn's disease Crohn's Disease Problem Active 05-08 00:00: 00 [facility] Diverticul itis Diverticul itis Problem Active 05-08 00:00: 00 [facility] Osteoarthr itis Osteoarthr itis Problem Active 05-08 00:00: 00 [facility] History of intravenou s drug abuse History of Intravenou s Drug Abuse Problem Active 05-08 00:00: 00 [facility] No known active problems No known active problems Disease [facility] Allergies, Adverse Reactions, Alerts Allergy Name Allergy Type Status Severity Reaction(s) Onset Date Inactive Date Treating Clinician Comments Source Ciproflo xacin Propensi ty to adverse reaction s Active Other - See comments 07-24 00:00: 00 [facility] CIPROFLO XACIN DRUG INGREDI Active Other-Cmnt 07-24 00:00: 00 [facility] Aspirin Propensi ty to adverse reaction s Active Rash 2014-04 0 00:00: 00 [facility] Ibuprofe n Propensi ty to adverse reaction s Active Rash 2014-04 0 00:00: 00 [facility] Penicill in Propensi ty to adverse reaction s Active Unknown - See comments 2014-04 00:00: 00 [facility] Ketorola c Propensi ty to adverse reaction s Active Unknown - See comments 2014-04 00:00: 00 [facility] ASPIRIN DRUG INGREDI Active Rash 2014-04 0 00:00: 00 [facility] IBUPROFE N DRUG INGREDI Active Rash 2014-04 0 00:00: 00 [facility] PENICILL IN DRUG INGREDI Active Unknown-Cmnt 2014-04 0 00:00: 00 [facility] KETOROLA C DRUG INGREDI Active Unknown-Cmnt 2014-04 0 00:00: 00 [facility] TORADOL Allergy to substanc e Active Nausea [facility] Aspirin Allergy to substanc e Active Nausea [facility] Ibuprofe n Allergy to substanc e Active Nausea [facility] PENICILL INS Allergy to substanc e Active Hives [facility] Social History Social Habit Start Date Stop Date Quantity Comments Source Gender identity [facility] to SARS-CoV[facility]2 (event) Not sure [facility] History of tobacco use Cigarette Smoker [facility] History of Social function 2018-10-27 00:00:00 2018-10-27 00:00:00 [facility] Cigarette pack-years 2018-07-11 00:00:00 2018-07-11 00:00:00 [facility] Tobacco use and exposure 2018-07-11 00:00:00 2018-07-11 00:00:00 User of smokeless tobacco [facility] Cigarettes smoked current (pack per day) - Reported 2018-07-11 00:00:00 2018-07-11 00:00:00 [facility] Sex Assigned At 1975 00:00:00 1975 00:00:00 [facility] Smoking Status Start Date Stop Date Source Smokes tobacco daily 2018-07-11 00:00:00 [facility] Medications Ordered Medication Name Filled Medication Name Start Date Stop Date Current Medication? Ordering Clinician Indication Dosage Frequency Signature (SIG) Comments Components Source HYDROcodone -acetaminop hen (NORCO) 10-325 mg tablet 1 tablet 2022-04 12:15: 00 04-15 11:15 :00 No 1{tbl} 1 tablet, Oral, ONCE NOW, 1 dose, On [facility] 04/15/23 at 0615, Routine [facility] magnesium sulfate in water 2 gram/50 mL (4 %) infusion 2 g 2022-04 12:00: 00 04-15 23:59 :00 No 2g 2 g, IV Piggyback, Administer over 60 Minutes, ONCE, 1 dose, On [facility] 04/15/23 at 0600, Routine [facility] ipratropium -albuteroL (DUONEB) 0.5 mg-3 mg(2.5 mg base)/3 mL nebulizer solution 3 mL 2022-04 11:15: 00 Yes 3mL 3 mL, Inhalation , QID, First dose on [facility] 04/15/23 at 0515, Until Discontinu ed, Routine [facility] ipratropium -albuteroL (DUONEB) 0.5 mg-3 mg(2.5 mg base)/3 mL nebulizer solution 3 mL 2022-04 10:30: 00 04-15 09:40 :00 No 3mL 3 mL, Inhalation , ONCE, 1 dose, On [facility] 04/15/23 at 0430, Routine [facility] methylpredn isolone sod succ (SOLU-MEDRO L) injection 125 mg 2022-04 10:30: 00 04-15 09:34 :00 No 125mg 125 mg, Intravenou s, ONCE, 1 dose, On [facility] 04/15/23 at 0430, 2 mL [facility] cyclobenzap rine 10 mg tablet 2022-04 05:28: 16 04-15 00:00 :00 No cyclobenza yann 10 mg tablet Take 1 tablet twice a day by oral route as directed for 28 days. [facility] albuterol 90 mcg/actuati on inhaler 2022-04 00:00: 00 Yes [id number] 2{puff} Inhale 2 Puffs every 4 (four) hours as needed for Wheezing or Shortness of Breath. [facility] predniSONE 20 mg tablet 2022-04 00:00: 00 Yes [id number] TAKE ONE TABLET ORALLY TWICE A DAY FOR FIVE DAYS [facility] albuterol 2.5 mg /3 mL (0.083 %) nebulizer solution 2022-04 00:00: 00 Yes [id number] 2.5mg Inhale 3 mL every 6 (six) hours as needed for Wheezing, Shortness of Breath, Bronchospa sm or Chest tightness. May also nebulize one extra every 6 hours. [facility] codeine-gua ifenesin 10-100 mg/5 mL oral solution 2022-04 00:00: 00 04-23 05:59 :00 No 10mL Take 10 mL by mouth every 6 (six) hours as needed for Cough for up to 7 days. Indication s: COUGH [facility] methocarbam oL (ROBAXIN) injection 1,000 mg 11-22 03:00: 00 Yes 1000mg 1,000 mg, Intravenou s, Q8H, First dose on 11/21/22 at 2200, Until Discontinu ed, Routine [facility] HYDROmorpho ne (DILAUDID) injection 1 mg 11-21 20:45: 00 11-21 22:14 :00 No 1mg 1 mg, Slow IV Push, ONCE, 1 dose, On 11/21/22 at 1545, SAM
Us e approved by (Faculty): ADC PROVIDER [facility] acetaminoph en ADULT (OFIRMEV) injection 1,000 mg 11-21 20:00: 00 11-21 20:02 :00 No 1000mg 1,000 mg, IV Infusion, at 400 mL/hr Administer over 15 Minutes, ONCE, 1 dose, On 11/21/22 at 1500, Routine
Indicatio n: Non-periop erative Patient
Approved by: Per Policy (NPO Status) [facility] morpHINE (4 mg/mL) injection 4 mg 11-21 20:00: 11-21 19:44 :00 No 4mg 4 mg, Slow IV Push, ONCE, 1 dose, On 11/21/22 at 1500, SAM [facility] cyclobenzap rine 10 mg tablet 11-21 17:05: 02 Yes cyclobenza yann 10 mg tablet Take 1 tablet twice a day by oral route as directed for 28 days. [facility] acetaminoph en-codeine 300-30 mg tablet 11-21 00:00: 00 Yes [id number] 1{tbl} Take 1 tablet by mouth every 6 (six) hours as needed for Pain (scale 4-6) for up to 15 doses. Indication s: acute pain [facility] cyclobenzap rine 10 mg tablet 11-21 00:00: 11-27 04:59 :00 No [id number] 10mg Take 1 tablet by mouth in the morning and 1 tablet at noon and 1 tablet in the evening. Do all this for 5 days. [facility] clindamycin in 5 % dextrose [...] br>Restric sangeetha use approved by: ADC PROVIDER [facility] FENTanyl PF (SUBLIMAZE (PF)) injection 50 mcg 2020-04 05:15: 00 02-13 04:10 :00 No 50ug 50 mcg, Slow IV Push, ONCE, 1 dose, On [facility] 02/13/21 at 0015, Routine [facility] FENTanyl PF (SUBLIMAZE (PF)) injection 50 mcg 2020-04 04:39: 00 02-13 04:45 :00 No 50ug 50 mcg, Slow IV Push, ONCE, 1 dose, On Wed02/12/21 at 2345, STAT [facility] gabapentin 300 mg capsule 2020-04 00:00: 00 04-15 00:00 :00 No [id number] 300mg Take 1 capsule by mouth 3 (three) times daily. [facility] traMADOL (ULTRAM) 50 mg tablet 07-24 00:00: 00 Yes [id number] 50mg Take 1 tablet by mouth every 6 (six) hours as needed for Pain (scale 4-6). [facility] proMETHazin e 25 mg tablet 07-24 00:00: 00 04-15 00:00 :00 No [id number] 25mg Take 1 tablet by mouth every 6 (six) hours as needed for Nausea and Vomiting (N/V). [facility] meloxicam 7.5 mg tablet 07-11 09:32: 26 Yes meloxicam 7.5 mg tablet [facility] ketorolac 10 mg tablet 07-11 09:32: 26 Yes 10mg Take 10 mg by mouth. [facility] budesonide- formoterol 160-4.5 mcg/actuati on inhaler 07-11 09:32: 26 Yes Symbicort 160 mcg-4.5 mcg/actuat ion HFA aerosol inhaler [facility] cyclobenzap rine 10 mg tablet 07-11 09:32: 26 Yes cyclobenza yann 10 mg tablet Take 1 tablet twice a day by oral route as directed for 28 days. [facility] HYDROcodone -acetaminop hen (NORCO) 10-325 mg tablet 07-11 09:22: 33 Yes 2{tbl} Take 2 Tabs by mouth daily. [facility] albuterol 90 mcg/actuati on inhaler 07-11 00:00: 00 Yes [id number] 2{puff} Inhale 2 Puffs every 6 (six) hours as needed for Wheezing or Shortness of Breath. [facility] CELECOXIB (CELEBREX ORAL) 2014-04 16:33: 56 Yes Take by mouth. [facility] alprazolam 1 mg tablet TAKE ONE (1) TABLET(S) BY MOUTH ONCE A DAY NEEDED. alprazolam 1 mg tablet TAKE ONE (1) TABLET(S) BY MOUTH ONCE A DAY NEEDED. No alprazolam 1 mg tablet TAKE ONE (1) TABLET(S) BY MOUTH ONCE A DAY NEEDED. [facility] clindamycin HCl 300 mg capsule TAKE 1 CAPSULE BY MOUTH FOUR TIMES DAILY clindamycin HCl 300 mg capsule TAKE 1 CAPSULE BY MOUTH FOUR TIMES DAILY No clindamyci n HCl 300 mg capsule TAKE 1 CAPSULE BY MOUTH FOUR TIMES DAILY [facility] dextroamphe tamine-amph etamine 20 mg tablet TAKE ONE (1) TABLET(S) BY MOUTH EVERY MORNING. dextroamphe tamine-amph etamine 20 mg tablet TAKE ONE (1) TABLET(S) BY MOUTH EVERY MORNING. No dextroamph etamine-am phetamine 20 mg tablet TAKE ONE (1) TABLET(S) BY MOUTH EVERY MORNING. [facility] Vital Signs Vital Name Observation Time Observation Value Comments S ource Heart rate 2023-04-15 11:17:00 94 /min [facility] Body temperature 2023-04-15 11:17:00 36.78 Char [facility] Respiratory rate 2023-04-15 11:17:00 18 /min [facility] Oxygen saturation in Arterial blood by Pulse oximetry 2023-04-15 11:17:00 97 /min [facility] Systolic blood pressure 2023-04-15 11:07:00 130 mm[Hg] [facility] Diastolic blood pressure 2023-04-15 11:07:00 118 mm[Hg] [facility] Body height 2023-04-15 09:11:00 190.5 cm [facility] Body weight 2023-04-15 09:11:00 149.687 kg [facility] BMI 2023-04-15 09:11:00 41.25 kg/m2 [facility] Systolic blood pressure 2022-11-21 22:14:00 122 mm[Hg] [facility] Diastolic blood pressure 2022-11-21 22:14:00 82 mm[Hg] [facility] Heart rate 2022-11-21 22:14:00 76 /min [facility] Respiratory rate 2022-11-21 22:14:00 16 /min [facility] Oxygen saturation in Arterial blood by Pulse oximetry 2022-11-21 22:14:00 96 /min [facility] Body temperature 2022-11-21 18:37:00 36.83 Char [facility] Body height 2022-11-21 18:37:00 190.5 cm [facility] Body weight 2022-11-21 18:37:00 154.223 kg [facility] BMI 2022-11-21 18:37:00 42.50 kg/m2 [facility] BP Diastolic 2021-05-08 00:00:00 82 mm[Hg] [facility] Height 2021-05-08 00:00:00 74 [in_i] [facility] BMI (Body Mass Index) 2021-05-08 00:00:00 41.1 kg/m2 [facility] BP Systolic 2021-05-08 00:00:00 124 mm[Hg] [facility] Body Weight 2021-05-08 00:00:00 5120 [oz_av] [facility] Systolic blood pressure 2021-02-13 05:30:00 115 mm[Hg] [facility] Diastolic blood pressure 2021-02-13 05:30:00 83 mm[Hg] [facility] Heart rate 2021-02-13 05:30:00 78 /min [facility] Respiratory rate 2021-02-13 05:30:00 19 /min [facility] Oxygen saturation in Arterial blood by Pulse oximetry 2021-02-13 05:30:00 97 /min [facility] Body temperature 2021-02-13 03:30:00 36.94 Char [facility] Body height 2021-02-13 03:30:00 188 cm [facility] Body weight 2021-02-13 03:30:00 137.939 kg [facility] BMI 2021-02-13 03:30:00 39.04 kg/m2 [facility] Procedures Procedure Date / Time Performed Performing Clinicia n Source XR CHEST 1 VW 2023-04-15 09:40:04 Eva Ramirez [facility] TROPONIN I 2023-04-15 09:32:00 Eva Ramirez [facility] COMP. METABOLIC PANEL ([id number]) 2023-04-15 09:32:00 Eva Ramirez [facility] CBC WITH DIFF 2023-04-15 09:32:00 Eva Ramirez [facility] N-TERMINAL PRO-BNP 2023-04-15 09:32:00 Eva Ramirez [facility] NOTICE OF PRIVACY PRACTICES 2023-04-15 08:54:44 Doctor Unassigned, [place] [facility] CONSENT/REFUSAL FOR DIAGNOSIS AND TREATMENT 2023-04-15 08:54:28 Doctor Unassigned, [place] [facility] CT LUMBAR SPINE WO CONTRAST 2022-11-21 20:32:53 Kane Huffman [facility] CT THORAX WO CONTRAST 2022-11-21 20:32:53 Chaitanya Huffman [facility] CONSENT/REFUSAL FOR DIAGNOSIS AND TREATMENT 2022-11-21 18:27:20 Doctor Unassigned, [place] [facility] URINALYSIS 2021-02-13 04:20:00 Eva Ramirez [facility] BASIC METABOLIC PANEL (NA, K, CL, CO2, GLUCOSE, BUN, CREATININE, CA) 2021-02-13 04:08:00 Eva Ramirez [facility] CBC WITH DIFF 2021-02-13 04:08:00 Eva Ramirez [facility] NOTICE OF PRIVACY PRACTICES 2021-02-13 03:11:24 Doctor Unassigned, [place] [facility] CONSENT/REFUSAL FOR DIAGNOSIS AND TREATMENT 2021-02-13 03:10:40 Doctor Unassigned, [place] [facility] Procedure on Hand [place] [facility] Repair of Testis [facility] Repair of Ankle [facility] Knee Surgery [facility] Encounters Start Date/Time End Date/Time Encounter Type Admission Type Attending Clinicians Care Facility Care Department Encounter ID Source 2023-06-23 10:00:00 2023-06-23 10:00:00 Outpatient R SUSSY FROST STRAHIL [facility] [id number] [facility] 2023-05-22 00:00:00 2023-05-22 00:00:00 Telephone Sussy Frost [facility] 1..840.114 350.1.13.10 [id number] [id number] [facility] 2023-04-15 03:08:00 2023-04-15 05:41:00 Emergency X EVA RAMIREZ [facility] ERT [id number] [facility] 2023-04-15 03:08:00 2023-04-15 05:41:00 Emergency Eva Ramirez [facility] .840.114 [id number] [id number] [id number] [facility] 2023-04-15 00:00:00 2023-04-15 00:00:00 Orders Only Doctor Unassigned, [place] [facility] [id number] [id number] [id number] [id number] [facility] 2022-11-21 13:42:00 2022-11-21 17:40:00 Emergency Chaitanya Huffmanram A [facility] 1..840.114 350.1.13.10 [id number] [id number] [facility] 2022-11-21 13:42:00 2022-11-21 17:40:00 Emergency X KANE HUFFMAN [facility] ERT [id number] [facility] 2022-01-07 14:00:00 2022-01-07 14:00:00 Outpatient R ALBER REID [facility] [id number] [facility] 2022-01-05 10:00:00 2022-01-05 10:00:00 Outpatient ANA BRAND [facility] [id number] [facility] 2021-07-30 15:00:00 2021-07-30 15:00:00 Outpatient LESTER SANDY [facility] [id number] [facility] 2021-05-12 08:40:00 2021-05-12 08:40:00 Outpatient ERICKSON_R [facility] [id number] [facility] 2021-05-09 09:40:00 2021-05-09 09:40:00 Outpatient ERICKSON_R [facility] [id number] [facility] 2021-05-08 06:02:00 2021-05-08 06:02:00 Outpatient ERICKSON_R [facility] [id number] [facility] 2021-05-08 00:00:00 2021-05-08 00:00:00 Werner Zavaleta, DO: [address], [address], [place] [address] , Ph. [facility], DR. ZAVALETA [id number] [facility] 2021-05-08 00:00:00 2021-05-08 00:00:00 Outpatient Werner Zavaleta [facility] [id number] 2021-02-12 22:35:00 2021-02-13 01:24:00 Emergency Eva Ramirez S [facility] [id number] 350.1.13.10 [id number] [id number] [facility] 2021-02-12 22:35:00 2021-02-13 01:24:00 Emergency X EVA RAMIREZ [facility] ERT [id number] [facility] 2021-02-12 00:00:00 2021-02-12 00:00:00 Orders Only Doctor Unassigned, [place] [facility] [id number] [id number] [id number] [id number] [facility] Results Test Description Test Time Test Comments Results Result Co mments Source [facility] [id number] 10:25:15* Test Item Value Reference Range Interpretation Comme nts TROPONIN I (test code = 2647402052) 0.006 ng/mL <=0.034 HUGH (test code = [...] of biotin. Lab Interpretation (test code = 61666-3) Normal [facility] [id number] 10:22:54* Test Item Value Reference Range Interpretation Comme nts NT-proBNP (test code = 61169-2) 32 pg/mL <=125 Lab Interpretation (test cod e = 31809-8) Normal [facility]MP2023-12-28 10:13:53* Test Item Value Reference Range Interpretation Comme nts NA (test code = 8366095099) 141 mmol/L 135-145 K (test code = 3496731303) 3.9 mmol/L 3.5-5.0 CL (test code = 7523470717) 109 mmol/L 98-108 H CO2 TOTAL (test code = 8505704583) 25 mmol/L 23-31 AGAP (test code = 2926005298) 7 2-16 BUN (test code = 3917337141) 23 mg/dL 7-23 GLUCOSE (test code = 6470850762) 155 mg/dL 70-110 H CREATININE (test code = 5287179136) 0.70 mg/dL 0.60-1.25 TOTAL BILI (test code = 0741224687) 0.4 mg/dL 0.1-1.1 CALCIUM (test code = 6685223125) 8.8 mg/dL 8.6-10.6 T PROTEIN (test code = 5759502787) 6.8 g/dL 6.3-8.2 ALBUMIN (test code = 0626414768) 3.7 g/dL 3.5-5.0 ALK PHOS (test code = 1550539306) 58 U/L 34-122 ALTv (test code = 1742-6) 32 U/L 5-50 AST(SGOT) (test code = 0448386670) 27 U/L 13-40 eGFR (test code = 88989-3) 114.4 mL/min/1.73m2 CKD-EPI eGFR (2020). Assuming creatinine has been stable day-to-day for at least three months, the eGFR indicates Category G1 (>= 90 mL/min/1.73 m2) Lab Interpretation (test code = 98781-6) Abnormal [facility] 1 [id number] 09:50:51Examination: Chest one view (portable frontal) Ordering Physician: POLLY RAMIREZ Date: 04/15/2023 3:30 AM History: ? STEMI ? Comparison: None available Findings: AP chest, 2 images submitted for review. Pulmonary vascularity appears normal. The lungs are clear. There is nosignificant pleural effusion evident. There is no significant pneumothoraxevident. Heart size is normal.[facility]OL[facility] PAN[facility] (NA, K, CL, CO2, GLUCOSE, BUN, CREATININE, CA)2021-02-13 04:53:21* Test Item Value Reference Range Interpretation Comme nts NA (test code = 3855206292) 137 mmol/L 135-145 K (test code = 3049478445) 3.8 mmol/L 3.5-5.0 CL (test code = 1451388012) 107 mmol/L 98-108 CO2 TOTAL (test code = 6968092558) 27 mmol/L 23-31 AGAP (test code = 9918867064) 2-16 BUN (test code = 4180497091) 15 mg/dL 7-23 GLUCOSE (test code = 3861293400) 133 mg/dL 70-110 H CREATININE (test code = 5426724208) 1.07 mg/dL 0.60-1.25 CALCIUM (test code = 0635681405) 8.8 mg/dL 8.6-10.6 eGFR (test code = 5620028741) mL/min/1.73m2 HUGH (test code = HUGH) Association [...] imaging tests). Lab Interpretation (test code = 88035-3) Abnormal [facility] WITH [id number] 04:33:05* Test Item Value Reference Range Interpretation Comme nts WBC (test code = 6690-2) See_Comment [[employer]] The system which generated this result transmitted reference range: 4.20 - 10.70 10*3/?L. The reference range was not used to interpret this result as normal/abnormal. RBC (test code = 789-8) See_Comment [[employer]] The system which generated this result transmitted [...] 33.7 g/dL 31.2-35.0 RDW-SD (test code = 16262-9) 39.7 fL 38.5-51.6 RDW-CV (test code = 788-0) 12.9 % 12.1-15.4 PLT (test code = 777-3) See_Comment [[employer]] The system which generated this result transmitted reference range: 150 - 328 10*3/?L. The reference range was not used to interpret this result as normal/abnormal. MPV (test code = 92463-6) 10.0 fL 9.8-13.0 NRBC/100 WBC (test code = 5453213155) See_Comment [[employer] me [employer]age] The system which generated this result transmitted reference range: 0.0 - 10.0 /100 WBCs. The reference range was not used to interpret this result as normal/abnormal. NRBC x10^3 (test code = 8831041931) <0.01 See_Comment [Automated me ssage] The system which generated this result transmitted reference range: 10*3/?L. The reference range was not used to interpret this result as normal/abnormal. GRAN MAT (NEUT) % (test code = 770-8) 49.2 % IMM GRAN % (test code = 2366146461) 0.50 % LYMPH % (test code = 736-9) 37.3 % MONO % (test code = 5905-5) 9.2 % EOS % (test code = 713-8) 2.8 % BASO % (test code = 706-2) 1.0 % GRAN MAT x10^3(ANC) (test code = 7775641539) 3.75 10*3/uL 1.99-6.95 IMM GRAN x10^3 (test code = 4637410412) 0.04 10*3/uL 0.00-0.06 LYMPH x10^3 (test code = 731-0) 2.84 10*3/uL 1.09-3.23 MONO x10^3 (test code = 742-7) 0.70 10*3/uL 0.36-1.02 EOS x10^3 (test code = 711-2) 0.21 10*3/uL 0.06-0.53 BASO x10^3 (test code = 704-7) 0.08 10*3/uL 0.01-0.09 [facility] Notes Date/Time Note Provider Source 2023-05-24 12:13:18 2ptGp3LC32ibN+k+9Vr9 qbLKObilrAX7g/g qGcl9H4JzmBBa7youppzldUbrwTTT6169-6 2:13:18 Contacted patients spouse and offered a sooner appointment. 69015-4Cgefkiies encounter FcjgRC7367-71-35N83:14:10Telephone encounter [id number]. 2.742455|[id number] for patient eloa89139-2HfjbKXUSDCZYFLJKhdwcujau C-CDA narrative [id number] [address] Vy[id number] 1QTBJBZKNXPXBCAQAJDAAUW7087-62-49L1 2:14:101.2.840.660110.1.72.3.15|1.2 .840.756965.1.13.104.2.7.2.727879_2 [id number] Rosalinda Portillo [facility] 2023-05-22 14:56:15 qOvqNy72EW/8JVSTwtuV Ph4AP4Bnbo38uML wQ44ddnWXDW5LRXAvkUeGy6KTyR9C0600-9 4:56:15 Zachary Keating is a 48 year old malePatient prefers sooner appointment. Currently scheduled first available and added to waitlist. Patient's is aware the clinic will contact with sooner availability.Please contact 's contact number. [phone] encounter EpzwGW5750-52-40U87:58:24Telephone encounter NoteTXT1.2.840.377142.1.13.104.2.7. 2.111830|[id number] for patient vudx19710-1JnspVAUYMILATYEEstemrixa C-CDA narrative [id number] [address] [id number] 6ZMDQIRNHTYNBXBMDSSLSXG5295-68-95I2 4:58:241.2.840.852538.1.72.3.15|1.2 .840.663100.1.13.104.2.7.2.727879_2 [id number] Servando Addison [facility] 2023-04-15 05:40:20 a5jgJurTSo5FLw9XGUeT pYoGClQRFopHxET 4Xo984Lz9Due2g830Vzt070INaF8J4386-8 2-28T05:40:20 Pt given printed and verbal discharge instructions [...] with steady gait, in no apparent distress, 60623-1Wuxcohkmm department HjfdAD9633-44-03V34:41:45Emergency department NoteTXT1.2.840.210737.1.13.104.2.7. 2.560587|[id number] for patient cmpr02368-2FpqlWEONJNLVIMWOhdxdzkki C-CDA narrative text[id number] 7IKOWZWZNZEUMUQIYXSYNML2405-53-20Y4 5:41:451.2.840.282949.1.72.3.15|1.2 .840.276068.1.13.104.2.7.2.727879_1 [id number] [facility] 2023-04-15 03:08:52 lUEaYnMYXdyNkTcNu29L PZFvBwOl9cDb9e9 r/nZ/rJWe5aEjxiVyJ155zqB6re+n4063-4 03:08:52 Pt states " I fell like shit. I can't breathe, I have COPD. I can't stop coughing. My inhaler is not working and neither is my breathing treatments." 68716-9Rlekxcztx department Triage rxccIX4740-99-67L60:10:01[facility] Triage noteTXT1.2.840.716278.1.13.104.2.7. 2.307508|[id number] for patient fhvf81645-8Vppsljepm department NoteLNNARRATIVEFormatted C-CDA narrative text[address] Wl[id number] 0SPMGWESYQFKOHSZZRJMEXC6006-35-94B5 3:10:011.2.840.462571.1.72.3.15|1.2 .840.651614.1.13.104.2.7.2.727879_1 [id number] [facility] 2023-04-15 02:55:00 0u0T8LZmPltai/abqB84 R+NohDxgep8yple 9XxesB7IP9XhVDO1OkwDvKEGulSvb5081-1 02:55:00 [facility] Emergency Department NotePatient Name: Zachary KeatingDate of : 1975 48 year old maleTreatment Room: AZ3/AJ8Xrxsimf Record Number: [id number] Care Physician: Freya MorenoPatient Escorted by: Self [9]Mode of Arrival: Personal means [1]EMS Treatment 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 Pt was evaluated in :[place] X [place] and has work-up including Covid-19 and Influenza that was reportedly negativeHistory provided by: Medical records and patientLanguage assistant department manager used: NoCoughSeverity: ModerateOnset quality: GradualDuration: 2 weeksTiming: [...] of acute cardiopulmonary disease.Technical Quality: AdequateRL: 109AFC: 06331Yqc of report Lab Results:Lab ResultsCBC WITH DIFF - AbnormalResult Value Ref RangeWBC 13.75 (*) 4.20 - 10.70 10*3/?LRBC 4.58 4.26 - 5.52 10*6/?LHGB 13.5 12.2 - 16.4 g/dLHCT 41.2 38.4 - 49.3 %MCV 90.0 81.7 - 95.6 fLMCH 29.5 26.1 - 32.7 [facility] 32.8 31.2 - 35.0 g/dLRDW-SD 44.7 38.5 [...] 0.06 0.01 - 0.09 10*3/uLCOMP. METABOLIC PANEL (58939) - AbnormalNA 141 135 - 145 mmol/LK [...] U/LAST(SGOT) 27 13 - 40 U/LeGFR 114.4 mL/min/1.09g3FINMFHWS I - NormalTROPONIN I 0.006 <=0.034 ng/mLN-TERMINAL [...] nebulizer solutionFirst Provider Eval:ED EventsDate/Time Event User Fetwrwzv17/28/23310 Medical Screening Begins EVA RAMIREZ MD --04/15/23310 First Provider Evaluation EVA RAMIREZ MD --ED COURSEDiagnosis/Impression as of 04/15/23 0537Viral bronchitisCOPD exacerbationHypertension, uncontrolledProcedures:ProceduresMD M:Medical Decision MakingJuanchocielo Keating is a 48 year old male [...] follow-upSDb gore, DOSpecialty: IM-PULMONARY DISEASE, IM-CRITICAL CARE MEDICINERUST AND [id number] [place] [address]Lwyjv: [phone] signed by:Eva Ramirez MD04/15/23 0537 09814-8Ikjrzfusm Emergency department FopaXO6066-93-63T23:37:25Physician Emergency department NoteTXT1.2.840.958178.1.13.104.2.7. 2.273523|[id number] for patient pgzx10642-8Omxjyfray department NoteLNNARRATIVEFormatted C-CDA narrative text[address] Fc[id number] 7BAZONLHYGSLXLDZPCZODHR4226-13-06E6 5:37:251.2.840.397193.1.72.3.15|1.2 .840.735802.1.13.104.2.7.2.727879_1 [id number] [facility] 2022-11-21 18:11:41 GKcgcrSqkV3j6XlOyZtQ /mhoxuMypQit+ci B9QGGsQ6QIrma0KRQbHtba+15VUA44028-3 11-21T18:11:41 Pt given printed and verbal discharge instructions regarding fall, rib fracture, knee pain, encouraged hydration.2 Prescriptions sent to pharmacy.Discussed ibuprofen and to take with food to avoid GI distress.Discussed Tylenol # 3/[place] side affects and to avoid driving/operating machinery/or [...] leaving via wheelchair, in no apparent distress. 80892-0Jxxoguoxb department YgahMK7445-64-48L50:13:33[facility] NoteTXT1.2.840.385473.1.13.104.2.7. 2.947039|[id number] for patient bols77310-3QuvgZO405063416Ddbhwn M Herrera RNUT[address] Ks[id number] 8OYJQNCEAKLTMEZXUWKOBBU5940-10-72Q8 8:13:331.2.840.497900.1.72.3.15|1.2 .840.822872.1.13.104.2.7.2.727879_1 [id number] Shell Sears RN [facility] 2022-11-21 13:35:53 OVJUeUb1TWeKAnzNdYIw AVSIRgLfr590Lbm VgFq7MhpAMj9kAtuKXVOl/3w1ChIm8504-2 3:35:53 Patient states: "About 1.5 hours ago I was playing basketball, went up for a rebound. I fell and landed on my hand on my left ribs with some people on top of me. I'm having bad rib pain and shortness of breath. Also my right knee hurts pretty bad" 20105-6Ngohmpziq department Triage stciTQ5651-01-68U53:36:53[facility] Triage noteTXT1.2.840.857433.1.13.104.2.7. 2.073443|[id number] for patient heon00510-7Nsawretlr department [id number] M Cruz RN[address] Ijc[id number] 7VQHVGOTUATCFWMOTGFBJYD0346-59-59U5 3:36:531.2.840.328712.1.72.3.15|1.2 .840.158493.1.13.104.2.7.2.727879_1 [id number] Sowmya Arndt RN [facility] 2022-11-21 13:27:00 BFPT+ijkip3xoL5H0H5r 0RgpNDYhYnimpXk AR8DZLvG69lz+A0uCAFfXup0p9mNp8325-2 3:27:00 [facility] Emergency Department NotePatient Name: Zachary Dalton of : 1975 47 year old maleTreatment Room: [place] [address]Medical Record Number: [id number] Care Physician: Kye Hamilton Escorted by: Family [5]Mode of Arrival: Personal means [1]EMS 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 RL: 6600 AFC: 26971 End of report. THORAX WO CONTRAST Final [...] Screening Begins KANE HUFFMAN MD -- 11/21/22 135 First Provider Evaluation KANE HUFFMAN MD -- No notes of EC Admission Criteria type on file.ED COURSEDiagnosis/Impression as of 11/21/22 1707 Fall, initial encounter Will obtain ct chest/L spine, x-ray of R knee. Pt to receive analgesia. 17:05 PT informed of results. PT improved s/p treatment. PT to be shown how to use incentive spirometer. PT and comfortable with plan. Procedures: ProceduresMDM:Medical Decision Ofgasy89 yo M presents after fallProblems Addressed:Fall, initial [...] Follow-up:Electronically signed by: Kane Huffman MD11/21/22 1708 49754-3Lgrxqvtrm Emergency department FvbbEZ4023-28-96L90:08:54Physician Emergency department NoteTXT1.2.840.236434.1.13.104.2.7. 2.483858|[id number] for patient gwnm34253-5Pqlzpfotf department NoteLNUTMBUT[address] Tdns[id number] 2KOVQWROSUAJLUVJGUGVWMQ9826-36-83N1 7:08:541.2.840.099598.1.72.3.15|1.2 .840.114519.1.13.104.2.7.2.727879_1 [id number] [facility]
[2023-08-05] MEDS ORDERED: FUROSEMIDE 100 MG/10 ML VIAL IV ONE (20:30)
[2023-08-05] MEDS ORDERED: ONDANSETRON 4 MG/2 ML VIAL ONE (20:30)
[2023-08-05] MEDS ORDERED: MORPHINE 4 MG/ML SYR ONE (20:30)
[2023-08-05 20:49] LABS: Absolute Basophils 0.1 K/uL (0-0.5); Absolute Eosinophils 0.2 K/uL (0-0.5); Absolute Lymphocytes (CBC) 2.2 K/uL (0.7-4.9); Absolute Monocytes 0.6 K/uL (0.1-1.3); Absolute Neutrophil 3.9 K/uL (1.8-8.0); Basophils % 1.6 % (0-1.3); Eosinophils % 3.2 % (0-4.4); Hematocrit 40.1 % (39.6-49.0); Lymphocytes % 31.5 % (15.3-44.8); MCH 30.2 pg (27.0-35.0); MCHC 34.9 g/dL (32.0-36.0); MCV 86.5 fL (80-100); Monocytes % 8.7 % (3.3-12.3); Nucleated Red Blood Cells % 0.1 % (0-0); Platelets 180 thou/uL (152-406); RBC Red Blood Cell Count 4.64 M/uL (4.33-5.43); Red Cell Distribution Width 13.4 % (12.1-15.2)
[2023-08-05 20:59] LABS: PT Prothrombin Time 9.9 SECONDS (9.5-12.5); Protime INR 0.9
--- NOTE | 2023-08-05 21:09 | RAD REPORT ---
EXAM DESCRIPTION: Saeed Single View08/05/2023 8:46 pm CLINICAL HISTORY: Chest pain COMPARISON: June 2023 FINDINGS: Pulmonary vascular congestion is present. Lungs appear clear of acute infiltrate. The heart is probably mildly enlarged
[2023-08-05] MEDS ORDERED: FENTANYL CITR 100 MCG/2 ML ONE (22:09)
[2023-08-05 22:23] LABS: ALT/SGPT 64 U/L (16-61); Albumin 3.3 g/dL (3.4-5.0); Albumin/Globulin Ratio 0.9 (1.1-1.8); Alkaline Phosphatase 84 U/L (45-117); Anion Gap 4.8 mEq/L (5.0-15.0); BUN Blood Urea Nitrogen 13 mg/dL (7-18); Bicarbonate 31 mEq/L (21-32); Bilirubin Total 0.3 mg/dL (0.2-1.0); Globulin 3.7 g/dL (2.3-3.5); Glomerular Filtration Rate 91 ml/min (=/>90); Glucose Level 151 mg/dL (74-106); NT PRO-BNP 18 pg/mL (<125); Sodium Level 137 mEq/L (136-145); Troponin High Sensitivity 6.7 pg/mL (<58.9)
[2023-08-05 22:24] LABS: AST/SGOT 34 U/L (15-37); Bilirubin Direct < 0.1 mg/dL (0-0.2); Bilirubin Indirect, Calculated ND mg/dL (0.2-0.8); Magnesium 2.1 mg/dL (1.6-2.4); Potassium 3.8 mEq/L (3.5-5.1)
--- NOTE | 2023-08-05 22:33 | ER ---
Nurse's Notes [facility] Name: Dennis Keating Age: 48 yrs Sex: Male : 1975 Arrival Date: 08/05/2023 Time: 20:08 Bed 5 Private MD: Diagnosis: Chest pain, unspecified;Generalized edema Presentation: 08/04 20:29 Chief complaint: Patient states: pt reports fluid retention since Wednesday. has gained bm8 30lbs in 4 days. Coronavirus screen: At this time, the client does not indicate any symptoms associated with coronavirus-19. Ebola Screen: Patient negative for fever greater than or equal to 101.5 degrees Fahrenheit, and additional compatible Ebola Virus Disease symptoms Patient denies exposure to infectious person. Patient denies travel to an Ebola-affected area in the 21 days before illness onset. No symptoms or risks identified at this time. Initial Sepsis Screen: Does the patient meet any 2 criteria? No. Patient's initial sepsis screen is negative. Does the patient have a suspected source of infection? No. Patient's initial sepsis screen is negative. Risk Assessment: Do you want to hurt yourself or someone else? Patient reports no desire to harm self or others. Onset of symptoms was July 31, 2023 at 09:00. 20:29 Method Of Arrival: Ambulatory bm8 20:29 Acuity: AMNA 3 bm8 Triage Assessment: 20:31 General: Appears uncomfortable, Behavior is calm, cooperative, appropriate for age. bm8 Pain: Complains of pain in all joints, abd and chest. EENT: No deficits noted. No signs and/or symptoms were reported regarding the EENT system. Neuro: No deficits noted. Level of Consciousness is awake, alert, obeys commands, Oriented to person, place, time, situation, Appropriate for age. Cardiovascular: Heart tones S1 S2 present Capillary refill < 3 seconds Patient's skin is warm and dry. Cardiovascular: Edema is 2+ to left lower thigh, left knee, left midcalf, left ankle, left foot, left toes, right lower thigh, right knee, right midcalf, right ankle, right foot and right toes. Respiratory: Reports shortness of breath at rest Airway is patent Respiratory effort is even, unlabored, Respiratory pattern is regular, symmetrical, Breath sounds are clear bilaterally. Onset: The symptoms/episode began/occurred gradually, the patient has mild shortness of breath. GI: Reports lower abdominal pain, upper abdominal pain. : No deficits noted. No signs and/or symptoms were reported regarding the genitourinary system. Derm: No deficits noted. No signs and/or symptoms reported regarding the dermatologic system. Musculoskeletal: No deficits noted. No signs and/or symptoms reported regarding the musculoskeletal system. Historical: - Allergies: 20:31 Aspirin; bm8 20:31 Cipro PO; bm8 20:31 Ibuprofen; bm8 20:31 PENICILLINS; bm8 20:31 Toradol; bm8 - Home Meds: 20:31 Adderall XR 30 mg oral Capsule, ER 24 hr 1 cap 2 times per day [Active]; Albuterol Inhl bm8 [Active]; Creola 10/325 Oral 1 tablet twice a day [Active]; Trazodone Oral [Active]; Lasix 40 mg oral tablet 1 tab once [Active]; - PMHx: 20:31 Back pain; CHRONS; Chronic obstructive lung disease; Diverticulitis; Myocardial bm8 infarction; - PSHx: 20:31 Ankle; bowel resection; hand; foot; testicle; knee; bm8 - Immunization history:: Adult Immunizations up to date. - Infectious Disease History:: Denies. - Social history:: Smoking status: unknown. Screenin:35 [facility] ED Fall Risk Assessment (Adult) History of falling in the last 3 months, bm8 including since admission No falls in past 3 months (0 pts) Confusion or Disorientation No (0 pts) Intoxicated or Sedated No (0 pts) Impaired Gait No (0 pts) Mobility Assist Device Used No (0 pt) Altered Elimination No (0 pt) Score/Fall Risk Level 0 - 2 = Low Risk Oriented to surroundings, Maintained a safe environment, Educated pt \T\ family on fall prevention, incl call for assistance when getting out of bed. Abuse screen: Denies threats or abuse. Nutritional screening: No deficits noted. Tuberculosis screening: No symptoms or risk factors identified. Assessment: 20:35 Reassessment: see triage note. bm8 22:19 Reassessment: Patient appears in no apparent distress at this time. Patient and/or bm8 family updated on plan of care and expected duration. Pain level reassessed. Patient is alert, oriented x 3, equal unlabored respirations, skin warm/dry/pink. General: Appears in no apparent distress. comfortable, Behavior is calm, cooperative, appropriate for age. Pain: Complains of pain in all joints abd and chest. Neuro: No deficits noted. Level of Consciousness is awake, alert, obeys commands, Oriented to person, place, time, situation, Appropriate for age. Cardiovascular: Heart tones S1 S2 present Capillary refill < 3 seconds Patient's skin is warm and dry. Rhythm is regular. Respiratory: Airway is patent Respiratory effort is even, unlabored, Respiratory pattern is regular, symmetrical, Breath sounds are clear bilaterally. GI: Abdomen is round distended, Bowel sounds present X 4 quads. Reports lower abdominal pain, upper abdominal pain. : No deficits noted. No signs and/or symptoms were reported regarding the genitourinary system. EENT: No deficits noted. No signs and/or symptoms were reported regarding the EENT system. Derm: No deficits noted. No signs and/or symptoms reported regarding the dermatologic system. Musculoskeletal: No deficits noted. No signs and/or symptoms reported regarding the musculoskeletal system. 22:19 Reassessment: provider informed of pt c/o pain, new orders received. pt is currently on bm8 phone with making meal plans. Instructed he needed to eat heart healthy food for the evening. Vital Signs: 20:29 BP 133 / 95; Pulse 87; Resp 13; Temp 98.5; Pulse Ox 96% on R/A; Weight 126.1 kg; Height bm8 6 ft. 3 in. ; Pain 9/10; 21:54 BP 148 / 96; Pulse 80; Resp 20; Pulse Ox 96% ; Pain 7/10; ha1 22:19 BP 138 / 91; Pulse 90; Resp 17; Temp 98.5; Pulse Ox 93% on R/A; Pain 5/10; bm8 22:50 BP 128 / 78; Pulse 96; Resp 20; Temp 98.5; Pulse Ox 94% on R/A; Pain 5/10; bm8 20:29 Body Mass Index 34.75 (126.10 kg, 190.5 cm) bm8 20:29 Pain Scale: Adult bm8 21:54 Pain Scale: Adult ha1 22:19 Pain Scale: Adult bm8 22:50 Pain Scale: Adult bm8 [place] Coma Score: 20:35 Eye Response: spontaneous(4). Motor Response: obeys commands(6). Verbal Response: bm8 oriented(5). Total: 15. ED Course: 20:13 Patient arrived in ED. gm2 20:14 [facility] sb4 20:14 Efrain Da Silva MD is Attending Physician. sb4 20:28 EKG done, by ED staff, reviewed by Debbie Kerr PA-C. km8 20:29 Abhi Rai, RN is Primary Nurse. bm8 20:31 Triage completed. bm8 20:31 Splint/sling/ice applied as appropriate. Arm band placed on right wrist. EKG completed bm8 in triage. Results shown to MD. 20:35 No provider procedures requiring assistance completed. bm8 20:35 Patient has correct armband on for positive identification. Placed in gown. Bed in low bm8 position. Call light in reach. Side rails up X2. Adult w/ patient. media monitor on. Pulse ox on. NIBP on. Door closed. Noise minimized. Warm blanket given. Verbal reassurance given. 20:45 Inserted saline lock: 20 gauge in left antecubital area, using aseptic technique. Blood bm8 collected. 20:49 XRAY Chest (1 view) In Process Unspecified. EDMS 21:47 Provided Education on: need for admission. bm8 21:50 Basic Metabolic Panel Sent. ha1 21:50 LFT's Sent. ha1 21:50 Magnesium Sent. ha1 21:50 NT PRO-BNP Sent. ha1 21:50 Troponin HS Sent. ha1 22:32 Ricky Quintana MD is Hospitalizing Provider. sb4 22:57 Patient admitted, IV remains in place. bm8 Administered Medications: 20:42 Drug: Furosemide IVP 80 mg IVP once; give over 2 minutes Route: IVP; Site: left km8 antecubital; 20:44 Follow up: Response: No adverse reaction bm8 21:21 Follow up: Response: No adverse reaction bm8 20:42 Drug: morphine IVP or IV 4 mg IVP once over 4 mins Route: IVP; Infused Over: 4 mins; km8 Site: left antecubital; 20:44 Follow up: Response: No adverse reaction bm8 21:21 Follow up: Response: No adverse reaction bm8 20:42 Drug: Ondansetron IVP 4 mg IVP once; over 2 minutes Route: IVP; Site: left antecubital; km8 20:44 Follow up: Response: No adverse reaction bm8 21:21 Follow up: Response: No adverse reaction bm8 22:19 Drug: fentaNYL (PF) IVP 50 mcg IVP once Route: IVP; Site: left antecubital; bm8 22:56 Follow up: Response: No adverse reaction bm8 Medication: 20:35 VIS not applicable for this client. bm8 Outcome: 22:33 Decision to Hospitalize by Provider. sb4 22:57 Admitted to Med/surg accompanied by nurse, via wheelchair, room 204, with chart, Report bm8 called to chencho cottrell 22:57 Condition: stable 22:57 Instructed on the need for admit, 23:38 Patient left the ED. bm8 Signatures: Dispatcher [employer] EDMS Delia Newton RN RN ha1 Debbie Kerr, PA-C PA-C sb4 Alyssa Lopez 2 Kathy Munoz RN RN km8 Abhi Rai RN RN bm8
--- NOTE | 2023-08-05 22:34 | EDPHYS ---
Physician Documentation [facility] Name: Dennis Keating Age: 48 yrs Sex: Male : 1975 Arrival Date: 08/05/2023 Time: 20:08 Bed 5 Private MD: ED Physician Efrain Da Silva HPI: 08/04 21:15 This 48 yrs old Male presents to ER via Ambulatory with complaints of shortness of sb4 breath. 21:16 The patient has shortness of breath at rest. Onset: The symptoms/episode began/occurred sb4 2 day(s) ago. Duration: The symptoms are continuous. The patient's shortness of breath has no apparent modifying factors. Associated signs and symptoms: Pertinent positives: chest pain. patient reports worsening fluid retention, 30lb weight gain, shortness of breath x 2 days. has been taking lasix 40 mg BID without any improvement in swelling. 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 - Infectious Disease History:: Denies. - Social history:: Smoking status: unknown. ROS: 21:16 Constitutional: Negative for fever, chills, and weight loss, sb4 21:16 Cardiovascular: Positive for chest pain, 21:16 Cardiovascular: Positive for edema, orthopnea, 21:16 Respiratory: Positive for shortness of breath, at rest. 21:16 All other systems are negative, Exam: 21:16 Head/Face: Normocephalic, atraumatic. Eyes: Extra-ocular motions intact. Periorbital sb4 areas with no swelling, redness, or edema. ENT: Mucous membranes moist. Skin: Warm, dry with normal turgor. Normal color with no rashes, no lesions, and no evidence of cellulitis. 21:16 Constitutional: The patient appears alert, awake, obese, in obvious distress, moderately distressed, 21:16 Cardiovascular: Rate: normal, Rhythm: regular, Edema: pedal edema, that is moderate, ankle edema, that is moderate, 21:16 Respiratory: mild respiratory distress is noted, Respirations: normal, no acute changes, Breath sounds: rales, that are moderate, are scattered, 21:16 Abdomen/GI: Inspection: distension, Vital Signs: 20:29 BP 133 / 95; Pulse 87; Resp 13; Temp 98.5; Pulse Ox 96% on R/A; Weight 126.1 kg; Height bm8 6 ft. 3 in. ; Pain 9/10; 21:54 BP 148 / 96; Pulse 80; Resp 20; Pulse Ox 96% ; Pain 7/10; ha1 22:19 BP 138 / 91; Pulse 90; Resp 17; Temp 98.5; Pulse Ox 93% on R/A; Pain 5/10; bm8 22:50 BP 128 / 78; Pulse 96; Resp 20; Temp 98.5; Pulse Ox 94% on R/A; Pain 5/10; bm8 20:29 Body Mass Index 34.75 (126.10 kg, 190.5 cm) bm8 20:29 Pain Scale: Adult bm8 21:54 Pain Scale: Adult ha1 22:19 Pain Scale: Adult bm8 22:50 Pain Scale: Adult bm8 Dre Coma Score: 20:35 Eye Response: spontaneous(4). Motor Response: obeys commands(6). Verbal Response: bm8 oriented(5). Total: 15. MDM: 20:19 Patient medically screened. sb4 22:32 Data reviewed: vital signs, nurses notes, lab test result(s), EKG, radiologic studies, sb4 and as a result, I will admit patient. Consideration of Admission/Observation Patient was admitted/placed on observation. Counseling: I had a detailed discussion with the patient and/or guardian regarding the historical points, exam findings, and any diagnostic results supporting the discharge/admit diagnosis, lab results, radiology results, the need for further work-up and treatment in the hospital. 08/04 20:26 Order name: Basic Metabolic Panel; Complete Time: 22:26 sb4 08/04 20:26 Order name: CBC with Diff; Complete Time: 20:56 sb4 08/04 20:26 Order name: LFT's; Complete Time: 22:26 sb4 08/04 20:26 Order name: Magnesium; Complete Time: 22:26 sb4 08/04 20:26 Order name: NT PRO-BNP; Complete Time: 22:26 sb4 08/04 20:26 Order name: PT-INR; Complete Time: 21:03 sb4 08/04 20:26 Order name: Troponin HS; Complete Time: 22:26 sb4 08/04 22:45 Order name: Urinalysis w/ reflexes EDMS 08/04 22:45 Order name: CBC with Automated Diff EDMS 08/04 22:45 Order name: CBC with Automated Diff EDMS 08/04 22:45 Order name: Comprehensive Metabolic Panel EDMS 08/04 22:45 Order name: Comprehensive Metabolic Panel EDMS 08/04 22:45 Order name: Troponin High Sensitivity EDMS 08/04 22:45 Order name: Troponin High Sensitivity EDMS 08/04 22:45 Order name: Troponin High Sensitivity EDMS 08/04 22:45 Order name: Troponin High Sensitivity EDMS 08/04 20:26 Order name: XRAY Chest (1 view); Complete Time: 21:11 sb4 08/04 22:39 Order name: Chest W/ Con CT sb4 08/04 22:46 Order name: Echo with Doppler EDMS 08/04 22:45 Order name: CONS Physician Consult EDMS 08/04 20:26 Order name: Cardiac monitoring; Complete Time: 20:27 sb4 08/04 20:26 Order name: EKG - Nurse/Tech; Complete Time: 20:27 sb4 08/04 20:26 Order name: IV Saline Lock; Complete Time: 20:42 sb4 08/04 20:26 Order name: Labs collected and sent; Complete Time: 20:42 sb4 08/04 20:26 Order name: O2 Per Protocol; Complete Time: 20:27 sb4 08/04 20:26 Order name: O2 Sat Monitoring; Complete Time: 20:27 sb4 EC:49 Rate is 87 beats/min. Rhythm is regular, Normal Sinus Rhythm. RI interval is normal at sb4 164 msec. QRS interval is normal at 98 msec. QT interval is normal at 376 msec. No Q waves. T waves are Normal. No ST changes noted. Clinical impression: Normal ECG. Interpreted by me. Reviewed by me. Administered Medications: 20:42 Drug: Furosemide IVP 80 mg IVP once; give over 2 minutes Route: IVP; Site: left [facility] [place] antecubital; 20:44 Follow up: Response: No adverse reaction bm8 21:21 Follow up: Response: No adverse reaction bm8 20:42 Drug: morphine IVP or IV 4 mg IVP once over 4 mins Route: IVP; Infused Over: 4 mins; km8 Site: left antecubital; 20:44 Follow up: Response: No adverse reaction bm8 21:21 Follow up: Response: No adverse reaction bm8 20:42 Drug: Ondansetron IVP 4 mg IVP once; over 2 minutes Route: IVP; Site: left antecubital; 8 20:44 Follow up: Response: No adverse reaction bm8 21:21 Follow up: Response: No adverse reaction bm8 22:19 Drug: fentaNYL (PF) IVP 50 mcg IVP once Route: IVP; Site: left antecubital; bm8 22:56 Follow up: Response: No adverse reaction bm8 Disposition Summary: 08/05/23 22:33 Hospitalization Ordered Notes: Hospitalization Status: Inpatient Admission sb4 Provider: Ricky Quintana [facility] (Inpatient) sb4 Condition: Fair sb4 Problem: new sb4 Symptoms: are unchanged sb4 Bed/Room Type: Standard 4 Room Assignment: 211(08/05/23 23:15) jb4 Diagnosis - Chest pain, unspecified sb4 - Generalized edema sb4 Forms: - Medication Reconciliation Form sb4 - SBAR form sb4 - Leadership Thank You Letter sb4 Addendum: 08/07/2023 01:15 I was immediately available for consultation during this patient's visit. I did not e c2 personally see the patient or discuss the patient with the JANELL. . Signatures: Dispatcher [employer] Dennis Mckenzie RN RN jb4 Debbie Kerr PA-C PA-C sb4 Efrain Da Silva MD MD ec2 Forrester, Kelsey Maroul km Kathy Munoz, RN RN km8 Abhi Rai, RN RN bm8 Corrections: (The following items were deleted from the chart) 08/04 20:27 20:27 BASIC METABOLIC PANEL+C.LAB.BRZ ordered. EDMS EDMS 20:27 20:27 CBC+H.LAB.BRZ ordered. EDMS EDMS 20:27 20:27 HEPATIC FUNCTION+C.LAB.BRZ ordered. EDMS EDMS 20:27 20:27 MAGNESIUM+C.LAB.BRZ ordered. EDMS EDMS 20:27 20:27 PROBNP+C.LAB.BRZ ordered. EDMS EDMS 20:27 20:27 PROTIME (+INR)+COAG.LAB.BRZ ordered. EDMS EDMS 20:27 20:27 Troponin High Sensitivity+C.LAB.BRZ ordered. EDMS EDMS 20:27 20:27 Chest Single View+RAD.RAD.BRZ ordered. EDMS EDMS 22:48 22:33 sb4 kmf 23:15 22:48 204 kmf jb4
[2023-08-05] MEDS ORDERED: ALBUTEROL 2.5 MG/3 ML NEB SOL NEB PRN (22:40)
[2023-08-05] MEDS ORDERED: ACETAMINOPHEN 325 MG TABLET PO PRN (22:40)
--- NOTE | 2023-08-05 22:45 | P.HP ---
Certification for Inpatient Patient admitted to: Inpatient With expected LOS: >2 Midnights Practitioner: I am a practitioner with admitting privileges, knowledge of patient current condition, hospital course, and medical plan of care. Services: Services provided to patient in accordance with Admission requirements found in Title 42 Section 412.3 of the Code of Federal Regulations Patient History Date of Service: 08/06/23 Reason for admission: SOB History of Present Illness: 48 yrs old Male with past medical history of COPD, diverticulitis, history of CAD, chronic back pain, obesity came to ER with shortness of breath which has been going on for the last 2 days and has been progressively worsening and was brought to ER. Shortness of breath is associated with chest discomfort as well. Pain is located retrosternally nonradiating not associated with any diaphoresis. Worse with minimal exertion. No fever or chills. Denies any nausea vomiting or diarrhea. Denies any cough. No sick contacts. Patient was noted to have anasarca and had a recent weight gain of 30 pounds. Patient was initially on Lasix which increased to 40 mg yesterday but without much improvement in swelling and was brought to ER Patient still complaining of chest pain ER and had to be given morphine which made his slightly better. Patient is being admitted to the hospital for further management; Allergies aspirin Allergy (Verified 11/14/17 16:10) Itching/Hives/Rash ibuprofen Allergy (Verified 11/14/17 16:10) Itching/Hives/Rash ketorolac tromethamine [From Toradol] Allergy (Verified 11/14/17 16:10) Itching/Hives/Rash Penicillins Allergy (Verified 11/14/17 16:10) Itching/Hives/Rash Cipro PO Allergy (Uncoded 11/14/17 15:48) Unknown Home Medications: Zolpidem Tartrate [Ambien] 25 mg PO BEDTIME 08/05/23 Amphet Asp/Amphet/D-Amphet [Adderall 30 mg Tablet] 30 mg PO BID 08/06/23 Atorvastatin Calcium 10 mg PO BEDTIME 08/06/23 Fluticasone/Salmeterol [Advair 250-50 Diskus] 1 each IH 08/06/23 Furosemide [Lasix] 40 mg PO BID 08/06/23 Hydrocodone Bit/Acetaminophen [Hydrocodon-Acetaminophn 10-325] 1 each PO BID 08/06/23 Varenicline Tartrate [Chantix] 08/06/23 - Past Medical/Surgical History Diabetic: No Past Medical History: Reviewed- Non-Contributory -: crohns, diverticulitis -: Chronic Back pain Past Surgical History: Reviewed- Non-Contributory -: RT foot ,ankle, knee -: Colon resection 2013 -: Testicular sx Psychosocial/ Personal History: , occasional alcohol use 1-2 times monthly socially. - Family History Family History: Reviewed- Non-Contributory - Family History Mother -: Hypertension, Other (see notes) Notes: COPD Father -: Hypertension, Other (see notes) Notes: AFIB - Social History Smoking Status: Never smoker Alcohol use: Yes CD- Drugs: No Caffeine use: Yes Review of Systems 10-point ROS is otherwise unremarkable Physical Examination - Vital Signs Temperature: 98.4 F Blood Pressure: 118/72 Pulse: 76 Respirations: 18 Pulse Ox (%): 94 - Physical Exam General: Alert, Oriented x3, Cooperative, Mild distress, Obese HEENT: Atraumatic, Normocephalic Neck: Supple, 2+ carotid pulse no bruit Respiratory: Clear to auscultation bilaterally, Crackles/rales, Expiratory wheezes Cardiovascular: Regular rate/rhythm, Normal S1 S2, No rubs Capillary refill: <2 Seconds Gastrointestinal: Soft and benign, W/out hepatosplenomegaly, No masses, No rebound, No guarding Musculoskeletal: No clubbing, Swelling Integumentary: No rashes, No breakdown Neurological: Normal speech, Normal strength at 5/5 x4 extr, Cranial nerves 3-12 intact, Normal reflexes 2+ Lymphatics: No axilla or inguinal lymphadenopathy - Studies Laboratory Data (last 24 hrs) 08/05/23 08/05/23 08/05/23 21:40 20:36 20:36 WBC 7.10 Hgb 14.0 Hct 40.1 Plt Count 180 PT 9.9 INR 0.90 Sodium 137 Potassium 3.8 BUN 13 Creatinine 1.02 Glucose 151 H Magnesium 2.1 Total Bilirubin 0.3 AST 34 ALT 64 H Alkaline Phosphatase 84 Assessment and Plan - Problems (Diagnosis) (1) Chest pain Current Visit: Yes Status: Acute Plan: Chest pain rule out ACS Will trend cardiac enzymes Will monitor telemetry Started on aspirin and statin EKG did not show any acute changes suggestive of ischemia Will get an echocardiogram Cardiology consult Acute on chronic CHF possibly systolic/diastolic Monitor closely on telemetry Started on aggressive diuresis X-ray findings consistent with CHF Oxygen supplementation Will try to wean down oxygen requirement Will obtain an echocardiogram Cardiology consult COPD Not in exacerbation Continue home medications and titrate as needed Bronchodilators as needed Hypertension Antihypertensives titrated Continue home medications and titrate as needed Hyperlipidemia Continue statin Obesity Advise lifestyle modification GI/DVT prophylaxis Advanced directive full code Discharge Plan: Home Plan to discharge in: 48 Hours - Advance Directives Does patient have a Living Will: No Does patient have a Durable POA for Healthcare: No - Code Status/Comfort Care Code Status: Full Code Time Spent Managing Pts Care (In Minutes): 48
[2023-08-06] MEDS: MORPHINE 2 MG/ML SYR IV PRN ×2 (00:14→09:15)
[2023-08-06] MEDS: FUROSEMIDE 40 MG/4 ML VIAL IV SCH (00:29)
[2023-08-06 01:01] LABS: Specific Gravity 1.011 (1.005-1.030); Urine Bilirubin NEGATIVE (Negative); Urine Blood Negative (Negative); Urine Clarity Clear (Clear); Urine Color Colorless (Yellow); Urine Glucose NEGATIVE (Negative); Urine Ketones NEGATIVE (Negative); Urine Microscopic Reflex YN NO UMIC; Urine Nitrite NEGATIVE (Negative); Urine Protein NEGATIVE (Negative); Urine Urobilinogen Normal (Normal)
[2023-08-06 01:02] VITALS: BMI 47.4
[2023-08-06] MEDS: HYDROCODONE/APAP 10/325 TAB PO PRN ×2 (04:37→20:43)
[2023-08-06 07:13] LABS: Absolute Basophils 0.1 K/uL (0-0.5); Absolute Eosinophils 0.2 K/uL (0-0.5); Absolute Lymphocytes (CBC) 1.8 K/uL (0.7-4.9); Absolute Monocytes 0.8 K/uL (0.1-1.3); Absolute Neutrophil 4.1 K/uL (1.8-8.0); Basophils % 1.2 % (0-1.3); Eosinophils % 3.2 % (0-4.4); Hematocrit 42.9 % (39.6-49.0); Hemoglobin 14.5 g/dL (13.6-17.9); Lymphocytes % 25.6 % (15.3-44.8); MCH 29.4 pg (27.0-35.0); MCHC 33.9 g/dL (32.0-36.0); MCV 86.8 fL (80-100); Monocytes % 11.6 % (3.3-12.3); Neutrophils % 58.4 % (41.7-73.7); Nucleated Red Blood Cells % 0.1 % (0-0); Platelets 180 thou/uL (152-406); RBC Red Blood Cell Count 4.94 M/uL (4.33-5.43); Red Cell Distribution Width 13.3 % (12.1-15.2)
[2023-08-06 07:27] LABS: Albumin 3.3 g/dL (3.4-5.0); Albumin/Globulin Ratio 0.8 (1.1-1.8); Anion Gap 4.9 mEq/L (5.0-15.0); Bilirubin Total 0.2 mg/dL (0.2-1.0); Globulin 3.9 g/dL (2.3-3.5); Potassium 3.9 mEq/L (3.5-5.1); Protein, Total 7.2 g/dL (6.4-8.2)
--- NOTE | 2023-08-06 07:32 | P.PN ---
Subjective Date of Service: 08/08/23 Chief Complaint: SOB Presented with shortness of breath, was noted to have anasarca, treated with Lasix, Breathing improved, report mild chest pain, controlled with as needed analgesia, nonradiating - Physical Exam General: Alert, Oriented x3, Cooperative, Mild distress, Obese HEENT: Atraumatic, Normocephalic Neck: Supple, 2+ carotid pulse no bruit Respiratory: Clear to auscultation bilaterally, Crackles/rales, Expiratory wheezes Cardiovascular: Regular rate/rhythm, Normal S1 S2, No rubs Capillary refill: <2 Seconds Gastrointestinal: Soft and benign, W/out hepatosplenomegaly, No masses, No rebound, No guarding Musculoskeletal: No clubbing, Swelling Integumentary: No rashes, No breakdown Neurological: Normal speech, Normal strength at 5/5 x4 extr, Cranial nerves 3-12 intact, Normal reflexes 2+ Lymphatics: No axilla or inguinal lymphadenopathy <Julia Villa - Last Filed: 08/08/23 11:03> Date of Service: 08/06/23 <Adriel Arciniega - Last Filed: 08/09/23 01:53> Review of Systems Per HPI <Julia Villa - Last Filed: 08/08/23 11:03> Physical Examination - Vital Signs Temperature: 98.4 F Blood Pressure: 118/72 Pulse: 76 Respirations: 18 Pulse Ox (%): 94 - Studies Laboratory Data (last 24 hrs) 08/05/23 08/05/23 08/05/23 21:40 20:36 20:36 WBC 7.10 Hgb 14.0 Hct 40.1 Plt Count 180 PT 9.9 INR 0.90 Sodium 137 Potassium 3.8 BUN 13 Creatinine 1.02 Glucose 151 H Magnesium 2.1 Total Bilirubin 0.3 AST 34 ALT 64 H Alkaline Phosphatase 84 <Julia Villa - Last Filed: 08/08/23 11:03> Assessment And Plan - Plan Assessment plan Acute on chronic CHF possibly systolic/diastolic unknown baseline Acute hypoxic hypercarbic respiratory failure secondary to decompensated heart failure Anasarca, fluid volume overload Cardiomegaly Chest pain rule out ACS Cardiology consult Telemetry, diuretics, as needed analgesics, Daily weight, aspirin statin started CT of the chest canceled, chest x-ray FINDINGS: Pulmonary vascular congestion is present.Lungs appear clear of acute infiltrate.The heart is probably mildly enlarged Echo ordered Trend troponin initial troponin normal 6.7, 6.0, BNP 18 COPD stable Hypertension Hyperlipidemia Obesity Resume appropriate home meds As needed nebs, O2 2 L keep sats greater than 92% DVT Lovenox Diet cardiac Full code Disposition Home independent prior Discharge Plan: Home - Code Status/Comfort Care Code Status: Full Code Critical Care: No Time Spent Managing PTS Care (In Minutes): 35 <Julia Villa - Last Filed: 08/08/23 11:03> Date of Service: 08/06/23 Patient was seen and examined. Events of the last 24 hours have been noted. Spoke with with JANELL regarding patient's clinical picture after evaluating and examining the patient independently. I performed a substantial part of the MDM during this patient's care today. I personally made or approved the documented management plan and acknowledge its risk of complications. I agree with the findings and documentation provided in the JANELL's notes. <Adriel Arciniega - Last Filed: 08/09/23 01:53>
[2023-08-06] MEDS: HYDROCODONE/APAP 7.5/325 MG TAB PO SCH (09:00)
[2023-08-06] MEDS: DULERA 200/5 (MOMETASONE/FORMOTEROL) INHALER IH SCH (09:15)
[2023-08-06] MEDS: ASPIRIN EC 81 MG TAB PO SCH (09:16)
[2023-08-06] MEDS: ENOXAPARIN 40 MG/0.4 ML SQ SCH (09:16)
[2023-08-06] MEDS ORDERED: ALBUTEROL 2.5 MG/3 ML NEB SOL NEB PRN (14:36)
[2023-08-06] MEDS: NICOTINE 21 MG/PAT TD SCH (14:45)
[2023-08-06] MEDS: ONDANSETRON 4 MG/2 ML VIAL IV PRN (14:58)
--- NOTE | 2023-08-06 18:08 | CON ---
Date of Consultation: 08/06/2023 Reason For Consultation: Fluid overload. History Of Present Illness: This is a 48-year-old male with a past medical history of COPD, coronary artery disease, questionable history of [place] in the past, dyslipidemia, presented with worsening short ness of breath and progressive lower extremity edema. No orthopnea. No chest pain. No nausea, vomi ting, diarrhea. No dysuria. Started on IV diuretics and fluids were coming off slowly and is feelin g slightly better. Denies having any active chest pain. Past Medical History: As outlined above in the HPI. Medications: Refer reconciliation sheet for detailed list. Allergies: HE IS ALLERGIC TO ASPIRIN, IBUPROFEN, PENICILLIN, AND CIPRO. Family History: No premature coronary artery disease or cancer. Social History: Does not smoke or drink. Does not use any drugs. Review of Systems: All systems reviewed are negative except mentioned in HPI. Physical Examination: Vital Signs: Reviewed. Head and Neck: Pupils are equal, reactive to light. Intact eye movements. No JVD. No cervical lym phadenopathy. Neck is supple. Thyroid is not enlarged. Lungs: Clear to auscultation bilaterally. No rhonchi, wheezing, or crackles. No accessory muscle u se. Heart: Regular rate and rhythm. No extra sounds. Abdomen: Soft, nontender. Bowel sounds positive. No organomegaly. No masses or hernia. No rigidi ty or rebound. Extremities: Edema bilaterally 3+. No clubbing, cyanosis. Intact pulses. Skin: No rash. No nodule. Neurologic: Alert, awake, oriented x3. No acute focal deficits appreciated. Investigations: Cardiac enzymes are negative. NT-proBNP is normal 18. BUN is 16, creatinine is 1.0 8. Hemoglobin is 14.5. Assessment/recommendation: 1.Shortness of breath and lower extremity edema with generalized fluid overload condition, likely co ngestive heart failure. Obtain echocardiogram. Agree with diuretics. Carefully monitor BUN, creati nine, electrolytes. 2.Dyslipidemia. Continue statin. 3.Active smoker. The patient was counseled to quit. 4.Further recommendation will follow after the echocardiogram. SR/MODL Voice ID: [id number] Report ID: [id number]
[2023-08-06] MEDS: ATORVASTATIN 40 MG TAB PO SCH (19:50)
[2023-08-06] MEDS ORDERED: ZOLPIDEM TARTRATE 10 MG TABLET PO SCH (21:00)
[2023-08-06] MEDS: MORPHINE 4 MG/ML SYR IV ONE (21:42)
[2023-08-06] MEDS: ZOLPIDEM TARTRATE 10 MG TABLET PO PRN (23:35)
[2023-08-07] MEDS: DIPHENHYDRAMINE 25 MG TAB/CAP PO PRN (02:52)
[2023-08-07] MEDS: MORPHINE 2 MG/ML SYR IV PRN (04:05)
--- NOTE | 2023-08-07 09:10 | P.PN ---
Subjective Date of Service: 08/08/23 Chief Complaint: SOB Presented with shortness of breath, was noted to have anasarca, treated with Lasix, Breathing improved, report mild chest pain, controlled with as needed analgesia, nonradiating 94% on room air, serial troponins negative, initial BNP 8 - Physical Exam General: Alert, Oriented x3, Cooperative, Obese HEENT: Atraumatic, Normocephalic Neck: Supple, 2+ carotid pulse no bruit Respiratory: Clear to auscultation bilaterally, Cardiovascular: Regular rate/rhythm, Normal S1 S2, No rubs Capillary refill: <2 Seconds Gastrointestinal: Soft and benign, W/out hepatosplenomegaly, No masses, No rebound, No guarding Musculoskeletal: No clubbing, Swelling Integumentary: No rashes, No breakdown Neurological: Normal speech, Normal strength at 5/5 x4 extr, Cranial nerves 3-12 intact, Normal reflexes 2+ Lymphatics: No axilla or inguinal lymphadenopathy <Julia Villa - Last Filed: 08/08/23 11:03> Date of Service: 08/07/23 <Adriel Arciniega - Last Filed: 08/09/23 01:53> Review of Systems Per HPI <Julia Villa - Last Filed: 08/08/23 11:03> Physical Examination - Vital Signs Temperature: 97.9 F Blood Pressure: 139/67 Pulse: 75 Respirations: 16 Pulse Ox (%): 93 <Julia Villa - Last Filed: 08/08/23 11:03> Assessment And Plan - Plan Assessment plan Acute on chronic CHF possibly systolic/diastolic unknown baseline Acute hypoxic hypercarbic respiratory failure secondary to decompensated heart failure Anasarca, fluid volume overload Cardiomegaly Chest pain rule out ACS Cardiology consult Telemetry, diuretics, as needed analgesics, Daily weight, aspirin statin started CT of the chest canceled, chest x-ray FINDINGS: Pulmonary vascular congestion is present.Lungs appear clear of acute infiltrate.The heart is probably mildly enlarged Echo ordered Trend troponin initial troponin normal 6.7, 6.0, BNP 18 COPD stable Hypertension Hyperlipidemia Obesity Resume appropriate home meds As needed nebs, O2 2 L keep sats greater than 92% DVT Lovenox Diet cardiac Full code Disposition Home independent prior Discharge Plan: Home - Code Status/Comfort Care Code Status: Full Code Critical Care: No Time Spent Managing PTS Care (In Minutes): 35 <Julia Villa - Last Filed: 08/08/23 11:03> Date of Service: 08/07/23 Patient was seen and examined. Events of the last 24 hours have been noted. Spoke with with JANELL regarding patient's clinical picture after evaluating and examining the patient independently. I performed a substantial part of the MDM during this patient's care today. I personally made or approved the documented management plan and acknowledge its risk of complications. I agree with the findings and documentation provided in the JANELL's notes. Patient was diuresed. Patient's respiratory status has improved. Patient's clinical symptoms are much better. <Adriel Arciniega - Last Filed: 08/09/23 01:53>
[2023-08-07 09:13] VITALS: O2SAT 94
--- NOTE | 2023-08-07 19:34 | RAD REPORT ---
EXAM DESCRIPTION: CT - Thorax Jamal Dickerson - 08/06/2023 6:28 am CLINICAL HISTORY: Chest pain, SOB TECHNIQUE: Axial computed tomography images of the chest without intravenous contrast. Sagittal an d coronal reformatted images were created and reviewed. This CT exam was performed using one or mor e of the following dose reduction techniques: automated exposure control, adjustment of the mA and/ or kV according to patient size, and/or use of iterative reconstruction technique. COMPARISON: No relevant prior studies available. FINDINGS: Lungs: Emphysema with an upper lobe predominance. Minimal bibasilar subsegmental atelect asis/pleural parenchymal scar. No focal infiltrate. No mass. Pleural space: Unremarkable. No pneumothorax. No significant effusion. Heart: Unremarkable. No cardiomegaly. No significant pericardial effusion. No significant cor onary artery calcifications. Bones/joints: Multilevel spondylosis. No acute fracture. No dislocation. Soft tissues: Unremarkable. Vasculature: Minimal atherosclerotic disease. No thoracic aortic aneurysm. Lymph nodes: Unremarkable. No enlarged lymph nodes. IMPRESSION: 1. No focal infiltrate. 2. Other findings as above. Electronically signed by: Genesis Minor MD 08/05/2023 11:28 PM CDT Due to temporary technical issues with the PACS/Fluency reporting system, reports are being signed by the in house radiologists without review as a courtesy to insure prompt reporting. The interpreting radiologist is fully responsible for the content of the report.
--- NOTE | 2023-08-08 11:02 | P.DS ---
Admission Date: 08/05/23 Discharge Date: 08/08/23 Reason for Admission: SOB Brief History of Present Illness: 48 yrs old Male with past medical history of COPD, diverticulitis, history of CAD, chronic back pain, obesity came to ER with shortness of breath which has been going on for the last 2 days and has been progressively worsening and was brought to ER. Shortness of breath is associated with chest discomfort as well. Pain is located retrosternally nonradiating not associated with any diaphoresis. Worse with minimal exertion. No fever or chills. Denies any nausea vomiting or diarrhea. Denies any cough. No sick contacts. Patient was noted to have anasarca and had a recent weight gain of 30 pounds. Patient was initially on Lasix which increased to 40 mg yesterday but without much improvement in swelling and was brought to ER. Patient still complaining of chest pain ER and had to be given morphine which made his slightly better. - Physical Exam General: Alert, Oriented x3, Cooperative, Mild distress, Obese HEENT: Atraumatic, Normocephalic Neck: Supple, 2+ carotid pulse no bruit Respiratory: Clear to auscultation bilaterally, Crackles/rales, Expiratory wheezes Cardiovascular: Regular rate/rhythm, Normal S1 S2, No rubs Capillary refill: <2 Seconds Gastrointestinal: Soft and benign, W/out hepatosplenomegaly, No masses, No rebound, No guarding Musculoskeletal: No clubbing, Swelling Integumentary: No rashes, No breakdown Neurological: Normal speech, Normal strength at 5/5 x4 extr, Cranial nerves 3-12 intact, Normal reflexes 2+ Lymphatics: No axilla or inguinal lymphadenopathy Hospital Course: 78 year-old male patient presented with shortness of breath, weight gain. Was noted to have COPD exacerbation, congestive heart failure.Condition improved with diuretics. Nebulizers, oxygen. Patient tolerating diet, stable for discharge to home with follow-up appointment with primary care physician. Follow-up with cardiology after discharge PROBLEM: Congestive heart failure improved with diuretics COPD exacerbation, treated with diuretics and nebulizers, oxygen. Chest pain, likely secondary to congestive heart failure, serial troponins negative Tobacco use Instructed to stop smoking Follow-up with cardiology after discharge Continue home medicines as previously prescribed GOAL: Clear understanding of disease process INSTRUCTIONS: Physician Discharge Instructions: -DC IV and DC home -Follow-up with PCP in 1 to 2 weeks -Please call Dr. Arciniega at [phone] if any questions regarding hospital stay -Please call nursing station at [phone] if any nursing or medication questions -Return to the emergency room if symptoms worsen Diet: ADA, low sodium Activity: Fall precautions <Julia Villa - Last Filed: 08/08/23 11:02> Admission Date: 08/05/23 Discharge Date: 08/08/23 Hospital Course: Patient is clinically doing much better. Respiratory status has improved. Patient will need outpatient follow-up with Pulmonary and Cardiology. <Adriel Arciniega - Last Filed: 08/09/23 01:56> Disposition: ROUTINE DISCHARGE Discharge Condition: GOOD Vital Signs/Physical Exam: Temp Pulse Resp BP Pulse Ox 97.1 F 86 16 134/73 94 08/07/23 12:00 08/07/23 12:00 08/07/23 12:24 08/07/23 12:00 08/07/23 12:24 Laboratory Data at Discharge: WBC 7.00 thou/uL (4.3-10.9) 08/06/23 06:52 Hgb 14.5 g/dL (13.6-17.9) 08/06/23 06:52 Hct 42.9 % (39.6-49.0) 08/06/23 06:52 Plt Count 180 thou/uL (152-406) 08/06/23 06:52 PT 9.9 SECONDS (9.5-12.5) 08/05/23 20:36 INR 0.90 08/05/23 20:36 Sodium 137 mEq/L (136-145) 08/07/23 07:07 Potassium 4.0 mEq/L (3.5-5.1) 08/07/23 07:07 BUN 21 mg/dL (7-18) H 08/07/23 07:07 Creatinine 1.05 mg/dL (0.70-1.30) 08/07/23 07:07 Glucose 112 mg/dL (74-106) H 08/07/23 07:07 Magnesium 2.1 mg/dL (1.6-2.4) 08/05/23 21:40 Total Bilirubin 0.2 mg/dL (0.2-1.0) 08/06/23 06:52 AST 35 U/L (15-37) 08/06/23 06:52 ALT 68 U/L (16-61) H 08/06/23 06:52 Alkaline Phosphatase 83 U/L (45-117) 08/06/23 06:52 <Julia Villa - Last Filed: 08/08/23 11:02> Vital Signs/Physical Exam: Temp Pulse Resp BP Pulse Ox 97.9 F 75 16 139/67 93 08/08/23 11:03 08/08/23 11:03 08/08/23 11:03 08/08/23 11:03 08/08/23 11:03 Laboratory Data at Discharge: WBC 7.00 thou/uL (4.3-10.9) 08/06/23 06:52 Hgb 14.5 g/dL (13.6-17.9) 08/06/23 06:52 Hct 42.9 % (39.6-49.0) 08/06/23 06:52 Plt Count 180 thou/uL (152-406) 08/06/23 06:52 PT 9.9 SECONDS (9.5-12.5) 08/05/23 20:36 INR 0.90 08/05/23 20:36 Sodium 137 mEq/L (136-145) 08/07/23 07:07 Potassium 4.0 mEq/L (3.5-5.1) 08/07/23 07:07 BUN 21 mg/dL (7-18) H 08/07/23 07:07 Creatinine 1.05 mg/dL (0.70-1.30) 08/07/23 07:07 Glucose 112 mg/dL (74-106) H 08/07/23 07:07 Magnesium 2.1 mg/dL (1.6-2.4) 08/05/23 21:40 Total Bilirubin 0.2 mg/dL (0.2-1.0) 08/06/23 06:52 AST 35 U/L (15-37) 08/06/23 06:52 ALT 68 U/L (16-61) H 08/06/23 06:52 Alkaline Phosphatase 83 U/L (45-117) 08/06/23 06:52 <Adriel Arciniega - Last Filed: 08/09/23 01:56> Diet: Low sodium Activity: Fall precautions Time spent managing pt's care (in minutes): 55 <Julia Villa - Last Filed: 08/08/23 11:02> <Adriel Arciniega - Last Filed: 08/09/23 01:56> Home Medications: Zolpidem Tartrate [Ambien*] 5 mg PO BEDTIME 08/05/23 Amphet Asp/Amphet/D-Amphet [Adderall 30 mg Tablet] 30 mg PO BID 08/06/23 Atorvastatin Calcium 10 mg PO BEDTIME 08/06/23 Fluticasone/Salmeterol [Advair 250-50 Diskus] 1 each IH DAILY 08/06/23 Furosemide [Lasix] 40 mg PO BID 08/06/23 Hydrocodone Bit/Acetaminophen [Hydrocodon-Acetaminophn 10-325] 1 each PO BID 08/06/23 Amlodipine [Norvasc*] 5 mg PO DAILY #30 tab 08/07/23 Atorvastatin Calcium [Lipitor] 40 mg PO BEDTIME tab 08/07/23 Hydrocodone 10/APAP 325 [[place] 10/325*] 1 tab PO Q6H PRN tab 08/07/23 carvediloL [Carvedilol] 6.25 mg PO BID #60 tab 08/07/23 New Medications: carvediloL [Carvedilol] 6.25 mg PO BID #60 tab Amlodipine [Norvasc*] 5 mg PO DAILY #30 tab Physician Discharge Instructions: PROBLEM: CHF exacerbation GOAL: Clear understanding of disease process INSTRUCTIONS: Diet: Low sodium Activity: Fall precautions -DC IV and DC home -Follow-up with PCP in 1 to 2 weeks -Follow-up with Cardiology in 1 to 2 weeks -Follow-up with GI/[facility] in 1 to 2 weeks -Follow-up with Bariatric surgery in 2 to 4 weeks -Please call Dr. Arciniega at [phone] if any questions regarding hospital stay -Please call nursing station at [phone] if any nursing or medication questions -Return to the emergency room if symptoms worsen Followup: Freya Moreno FNPC [Primary Care Provider] -
[2023-08-08 11:21] VITALS: BP 139/67; TEMP 97.9
--- NOTE | 2023-08-09 07:42 | ECHO ---
HEIGHT: 6 ft 3 in WEIGHT: 379 lb 4.8 oz DATE OF STUDY: 08/06/[address]: Blake Quintana DO 2-DIMENSIONAL: YES M.MODE: YES DOPPLER: YES COLOR FLOW: YES TDS: PORTABLE: YES DEFINITY: BUBBLE STUDY: DIAGNOSIS: CONGESTIVE HEART FAILURE CARDIAC HISTORY: CATHERIZATION: SURGERY: PROSTHETIC VALVE: PACEMAKER: MEASUREMENTS (cm) DIASTOLIC (NORMALS) SYSTOLIC (NORMALS) IVSd 1.1 (0.6-1.2) LA Diam 3.5 (1.9-4.0) LVEF 64% LVIDd 5.4 (3.5-5.7) LVIDs 3.5 (2.0-3.5) %FS 35% LVPWd 1.3 (0.6-1.2) Ao Diam 3.7 (2.0-3.7) 2 DIMENSIONAL ASSESSMENT: RIGHT ATRIUM: NORMAL LEFT ATRIUM: NORMAL RIGHT VENTRICLE: NORMAL LEFT VENTRICLE: NORMAL TRICUSPID VALVE: NORMAL MITRAL VALVE: MILD MITRAL REGURGITATION PULMONIC VALVE: NORMAL AORTIC VALVE: NORMAL PERICARDIAL EFFUSION: NONE AORTIC ROOT: NORMAL LEFT VENTRICULAR WALL MOTION: NORMAL DOPPLER/COLOR FLOW: SEE BELOW COMMENTS: 1. NORMAL LEFT VENTRICULAR EJECTION FRACTION 60-65% WITH NORMAL WALL MOTION 2. NORMAL DIASTOLIC DYSFUNCTION TECHNOLOGIST: EVELYN NGUYEN
--- NOTE | 2023-08-12 17:15 | EKG ---
Test Date: 2023-08-05 Test Time: 20:25:19 [employer] Principal: DIGNA MEASUREMENT RESULTS: Intervals: Rate: 87 PA: 164 QRSD: 98 QT: 376 QTc: 452 [place]: P: 62 PA: 164 QRS: 60 T: 61 INTERPRETIVE STATEMENTS: Normal sinus rhythm Normal ECG Compared to ECG 07/13/2023 22:07:56 No significant changes Electronically Signed On 08-12-23 16:50:47 CDT by Dusty Alva
== END 2023-08-07 13:58 | disposition home or self-care (01) | DRG 291 ==
LOC: ER 20:08 → ERHOLD 22:40 → 2ND 23:35
PROVIDERS: ADMIT Family Medicine; ATTEND Hospitalist
DX: I11.0 Hypertensive heart disease with heart failure (principal); I50.43 Acute on chronic combined systolic (congestive) and diastolic (congestive) heart failure; J96.02 Acute respiratory failure with hypercapnia; Z68.42 Body mass index [BMI] 45.0-49.9, adult; J44.1 Chronic obstructive pulmonary disease with (acute) exacerbation; E66.9 Obesity, unspecified; E78.5 Hyperlipidemia, unspecified; G89.29 Other chronic pain; M54.9 Dorsalgia, unspecified; I25.10 Atherosclerotic heart disease of native coronary artery without angina pectoris; I25.2 Old myocardial infarction; F17.200 Nicotine dependence, unspecified, uncomplicated; Z88.0 Allergy status to penicillin; Z71.6 Tobacco abuse counseling; Z88.6 Allergy status to analgesic agent; Z88.5 Allergy status to narcotic agent; Z88.1 Allergy status to other antibiotic agents; Z88.8 Allergy status to other drugs, medicaments and biological substances; Z79.02 Long term (current) use of antithrombotics/antiplatelets; Z90.49 Acquired absence of other specified parts of digestive tract; Z79.899 Other long term (current) drug therapy
CPT/HCPCS: 36415; 71045; 71250; 80048; 80053; 80076; 81003; 83735; 83880; 84484; 85025; 85610; 93005; 93306; 94760; 96374; 96375; 99285; J1650; J1940; J2270; J2405; J3010; J3535

== ENCOUNTER 2023-08-09 11:12 | Observation (INO) | payer OTHER ==
--- OUTSIDE RECORDS SUMMARY | 2023-08-09 11:15 | XMS REPORT | Continuity of Care Document ---
Author Name Unknown Address [address] [facility] [place] [address] [facility] Address [address] [facility] [address] [place] [address] Care Team Providers Care Pollution Control Engineer Name Role Phone Tiffanie Freya Primary Care Physician [phone] SUSSY FROST Attending Clinician UnavailSUSSY Shine Attending Clinician Sussy Mejias MD Attending Clinician EVA RAMIREZ Attending Clinician Unavailable Eva Ramirez MD Attending Clinician [phone] Doctor Unassigned, [place] Attending Clinician U Kane Rabago MD Attending Clinician [phone] KANE HUFFMAN Attending Clinician UnavailALBER De Los Santos Attending Clinician ANA Lord Attending Clinician Unavailable LESTER ARTEAGA Attending Clinician Unavailasa e ERICKSON_R Attending Clinician Unavailable Werner Zavaleta Attending Clinician [phone] EVA RAMIREZ Admitting Clinician Unavailable KANE HUFFMAN Admitting Clinician Gerhard GLOVER Admitting Clinician Unavailable Payers Payer Name Policy Type Policy Number Effective Date Expirati on Date Source ANNETTE OLSON [facility] [id number] 00:00:00 [employer] MCARE ADV CHOICE PPO [id number] 2021 00:00:00 [facility] (MEDICARE REPLACEMENT/ADVANTA GE - PPO) [id number] Problems Condition Name Condition Details Condition Category Status Onset Date Resolution Date Last Treatment Date Treating Clinician Comments Source Bipolar disorder Bipolar Disorder Problem [facility]08 [facility] Depressive disorder Depressive Disorder Problem Active 05[facility]08 [facility] Attention deficit hyperactiv ity disorder Attention Deficit Hyperactiv ity Disorder Problem Active 05-08 00:00: 00 [facility] Hypertensi ve disorder Hypertensi ve Disorder Problem Active 05-08 00[facility]00: 00 [facility] Chronic obstructiv e lung disease Chronic Obstructiv e Lung Disease Problem Active 05-08 00:00: 00 [facility] Crohn's disease Crohn's Disease Problem Active 05-08 00:00: 00 [facility] Diverticul itis Diverticul itis Problem Active 05-08 00:00: 00 [facility] Osteoarthr itis Osteoarthr itis Problem Active 05-08 00:00: 00 [facility] History of intravenou s drug abuse History of Intravenou s Drug Abuse Problem Active 05[facility]08 [facility]00: [facility] No known active problems No known active problems Disease [facility] Allergies, Adverse Reactions, Alerts Allergy Name Allergy Type Status Severity Reaction(s) Onset Date Inactive Date Treating Clinician Comments Source Ciproflo xacin Propensi ty to adverse reaction s Active Other - See comments 07-24 00:00: 00 [facility] CIPROFLO XACIN DRUG INGREDI Active Other-Cmnt 07-24 00:00: 00 [facility] Aspirin Propensi ty to adverse reaction s Active Rash 2014-04 0 00:00: 00 [facility] Ibuprofe n Propensi ty to adverse reaction s Active Rash 2014-04 0 00:00: 00 [facility] Penicill in Propensi ty to adverse reaction s Active Unknown - See comments 2014-04 00:00: 00 [facility] Ketorola c Propensi ty to adverse reaction s Active Unknown - See comments 2014-04 00:00: 00 [facility] ASPIRIN DRUG INGREDI Active Rash 2014-04 0 00:00: 00 [facility] IBUPROFE N DRUG INGREDI Active Rash 2014-04 0 00:00: 00 [facility] PENICILL IN DRUG INGREDI Active Unknown-Cmnt 2014-04 0 00:00: 00 [facility] KETOROLA C DRUG INGREDI Active Unknown-Cmnt 2014-04 0 00:00: 00 [facility] TORADOL Allergy to substanc e Active Nausea [facility] Aspirin Allergy to substanc e Active Nausea [facility] Ibuprofe n Allergy to substanc e Active Nausea [facility] PENICILL INS Allergy to substanc e Active Hives [facility] Social History Social Habit Start Date Stop Date Quantity Comments Source Gender identity [facility] Exposure to SARS-CoV-2 (event) Not sure [facility] History of tobacco use Cigarette Smoker [facility] History of Social function 2018-10-27 00:00:00 2018-10-27 00:00:00 [facility] Cigarette pack-years 2018-07-11 00:00:00 2018-07-11 00:00:00 [facility] Tobacco use and exposure 2018-07-11 00:00:00 2018-07-11 00:00:00 User of smokeless tobacco [facility] Cigarettes smoked current (pack per day) - Reported 2018-07-11 00:00:00 2018-07-11 00:00:00 [facility] Sex Assigned At 1975 00:00:00 1975 00:00:00 [facility] Smoking Status Start Date Stop Date Source Smokes tobacco daily 2018-07-11 00:00:00 [facility] Medications Ordered Medication Name Filled Medication Name Start Date Stop Date Current Medication? Ordering Clinician Indication Dosage Frequency Signature (SIG) Comments Components Source HYDROcodone -acetaminop hen (NORCO) 10-325 mg tablet 1 tablet 2022-04 12:15: 00 04-15 11:15 :00 No 1{tbl} 1 tablet, Oral, ONCE NOW, 1 dose, On [facility] 04/15/23 at 0615, Routine [facility] magnesium sulfate in water 2 gram/50 mL (4 %) infusion 2 g 2022-04 12:00: 00 04-15 23:59 :00 No 2g 2 g, IV Piggyback, Administer over 60 Minutes, ONCE, 1 dose, On Yolanda 04/15/23 at 0600, Routine [facility] ipratropium -albuteroL (DUONEB) 0.5 mg-3 mg(2.5 mg base)/3 mL nebulizer solution 3 mL 2022-04 11:15: 00 Yes 3mL 3 mL, Inhalation , QID, First dose on Yolanda 04/15/23 at 0515, Until Discontinu ed, Routine [facility] ipratropium -albuteroL (DUONEB) 0.5 mg-3 mg(2.5 mg base)/3 mL nebulizer solution 3 mL 2022-04 10:30: 00 04-15 09:40 :00 No 3mL 3 mL, Inhalation , ONCE, 1 dose, On [facility] 04/15/23 at 0430, Routine [facility] methylpredn isolone sod succ (SOLU-MEDRO L) injection 125 mg 2022-04 10:30: 00 04-15 09:34 :00 No 125mg 125 mg, Intravenou s, ONCE, 1 dose, On Yolanda 04/15/23 at 0430, 2 mL [facility] cyclobenzap rine 10 mg tablet 2022-04 05:28: 16 04-15 00:00 :00 No cyclobenza yann 10 mg tablet Take 1 tablet twice a day by oral route as directed for 28 days. [facility] albuterol 90 mcg/actuati on inhaler 2022-04 00:00: 00 Yes [id number] 2{puff} Inhale 2 Puffs every 4 (four) hours as needed for Wheezing or Shortness of Breath. [facility] predniSONE 20 mg tablet 2022-04 00:00: 00 Yes [id number] TAKE ONE TABLET ORALLY TWICE A DAY FOR FIVE DAYS [facility] albuterol 2.5 mg /3 mL (0.083 %) nebulizer solution 2022-04 00:00: 00 Yes [id number] 2.5mg Inhale 3 mL every 6 (six) hours as needed for Wheezing, Shortness of Breath, Bronchospa sm or Chest tightness. May also nebulize one extra every 6 hours. [facility] codeine-gua ifenesin 10-100 mg/5 mL oral solution 2022-04 00:00: 00 04-23 05:59 :00 No 10mL Take 10 mL by mouth every 6 (six) hours as needed for Cough for up to 7 days. Indication s: COUGH [facility] methocarbam oL (ROBAXIN) injection 1,000 mg 11-22 03:00: 00 Yes 1000mg 1,000 mg, Intravenou s, Q8H, First dose on 11/21/22 at 2200, Until Discontinu ed, Routine [facility] HYDROmorpho ne (DILAUDID) injection 1 mg 11-21 20:45: 00 11-21 22:14 :00 No 1mg 1 mg, Slow IV Push, ONCE, 1 dose, On 11/21/22 at 1545, SAM
Us e approved by (Faculty): ADC PROVIDER [facility] acetaminoph en ADULT (OFIRMEV) injection 1,000 mg 11-21 20:00: 00 11-21 20:02 :00 No 1000mg 1,000 mg, IV Infusion, at 400 mL/hr Administer over 15 Minutes, ONCE, 1 dose, On 11/21/22 at 1500, Routine
Indicatio n: Non-periop erative Patient
Approved by: Per Policy (NPO Status) [facility] morpHINE (4 mg/mL) injection 4 mg 11-21 20:00: 11-21 19:44 :00 No 4mg 4 mg, Slow IV Push, ONCE, 1 dose, On 11/21/22 at 1500, SAM [facility] cyclobenzap rine 10 mg tablet 11-21 17:05: 02 Yes cyclobenza yann 10 mg tablet Take 1 tablet twice a day by oral route as directed for 28 days. [facility] acetaminoph en-codeine 300-30 mg tablet 11-21 00:00: 00 Yes [id number] 1{tbl} Take 1 tablet by mouth every 6 (six) hours as needed for Pain (scale 4-6) for up to 15 doses. Indication s: acute pain [facility] cyclobenzap rine 10 mg tablet 11-21 00:00: 11-27 04:59 :00 No [id number] 10mg Take 1 tablet by mouth in the morning and 1 tablet at noon and 1 tablet in the evening. Do all this for 5 days. [facility] clindamycin in 5 % dextrose (CLEOCIN) [...] br>Restric sangeetha use approved by: ADC PROVIDER [facility] FENTanyl PF (SUBLIMAZE (PF)) injection 50 mcg 2020-04 05:15: 00 02-13 04:10 :00 No 50ug 50 mcg, Slow IV Push, ONCE, 1 dose, On Yolanda 02/13/21 at 0015, Routine [facility] FENTanyl PF (SUBLIMAZE (PF)) injection 50 mcg 2020-04 04:39: 00 02-13 04:45 :00 No 50ug 50 mcg, Slow IV Push, ONCE, 1 dose, On Wed02/12/21 at 2345, STAT [facility] gabapentin 300 mg capsule 2020-04 00:00: 00 04-15 00:00 :00 No [id number] 300mg Take 1 capsule by mouth 3 (three) times daily. [facility] traMADOL (ULTRAM) 50 mg tablet 07-24 00:00: 00 Yes [id number] 50mg Take 1 tablet by mouth every 6 (six) hours as needed for Pain (scale 4-6). [facility] proMETHazin e 25 mg tablet 07-24 00:00: 00 04-15 00:00 :00 No [id number] 25mg Take 1 tablet by mouth every 6 (six) hours as needed for Nausea and Vomiting (N/V). [facility] meloxicam 7.5 mg tablet 07-11 09:32: 26 Yes meloxicam 7.5 mg tablet [facility] ketorolac 10 mg tablet 07-11 09:32: 26 Yes 10mg Take 10 mg by mouth. [facility] budesonide- formoterol 160-4.5 mcg/actuati on inhaler 07-11 09:32: 26 Yes Symbicort 160 mcg-4.5 mcg/actuat ion HFA aerosol inhaler [facility] cyclobenzap rine 10 mg tablet 07-11 09:32: 26 Yes cyclobenza yann 10 mg tablet Take 1 tablet twice a day by oral route as directed for 28 days. [facility] HYDROcodone -acetaminop hen (NORCO) 10-325 mg tablet 07-11 09:22: 33 Yes 2{tbl} Take 2 Tabs by mouth daily. [facility] albuterol 90 mcg/actuati on inhaler 07-11 00:00: 00 Yes [id number] 2{puff} Inhale 2 Puffs every 6 (six) hours as needed for Wheezing or Shortness of Breath. [facility] CELECOXIB (CELEBREX ORAL) 2014-04 16:33: 56 Yes Take by mouth. [facility] alprazolam 1 mg tablet TAKE ONE (1) TABLET(S) BY MOUTH ONCE A DAY NEEDED. alprazolam 1 mg tablet TAKE ONE (1) TABLET(S) BY MOUTH ONCE A DAY NEEDED. No alprazolam 1 mg tablet TAKE ONE (1) TABLET(S) BY MOUTH ONCE A DAY NEEDED. [facility] clindamycin HCl 300 mg capsule TAKE 1 CAPSULE BY MOUTH FOUR TIMES DAILY clindamycin HCl 300 mg capsule TAKE 1 CAPSULE BY MOUTH FOUR TIMES DAILY No clindamyci n HCl 300 mg capsule TAKE 1 CAPSULE BY MOUTH FOUR TIMES DAILY [facility] dextroamphe tamine-amph etamine 20 mg tablet TAKE ONE (1) TABLET(S) BY MOUTH EVERY MORNING. dextroamphe tamine-amph etamine 20 mg tablet TAKE ONE (1) TABLET(S) BY MOUTH EVERY MORNING. No dextroamph etamine-am phetamine 20 mg tablet TAKE ONE (1) TABLET(S) BY MOUTH EVERY MORNING. [facility] Vital Signs Vital Name Observation Time Observation Value Comments S ource Heart rate 2023-04-15 11:17:00 94 /min [facility] Body temperature 2023-04-15 11:17:00 36.78 Char [facility] Respiratory rate 2023-04-15 11:17:00 18 /min [facility] Oxygen saturation in Arterial blood by Pulse oximetry 2023-04-15 11:17:00 97 /min [facility] Systolic blood pressure 2023-04-15 11:07:00 130 mm[Hg] [facility] Diastolic blood pressure 2023-04-15 11:07:00 118 mm[Hg] [facility] Body height 2023-04-15 09:11:00 190.5 cm [facility] Body weight 2023-04-15 09:11:00 149.687 kg [facility] BMI 2023-04-15 09:11:00 41.25 kg/m2 [facility] Systolic blood pressure 2022-11-21 22:14:00 122 mm[Hg] [facility] Diastolic blood pressure 2022-11-21 22:14:00 82 mm[Hg] [facility] Heart rate 2022-11-21 22:14:00 76 /min [facility] Respiratory rate 2022-11-21 22:14:00 16 /min [facility] Oxygen saturation in Arterial blood by Pulse oximetry 2022-11-21 22:14:00 96 /min [facility] Body temperature 2022-11-21 18:37:00 36.83 Char [facility] Body height 2022-11-21 18:37:00 190.5 cm [facility] Body weight 2022-11-21 18:37:00 154.223 kg [facility] BMI 2022-11-21 18:37:00 42.50 kg/m2 [facility] BP Diastolic 2021-05-08 00:00:00 82 mm[Hg] [facility] Height 2021-05-08 00:00:00 74 [in_i] [facility] BMI (Body Mass Index) 2021-05-08 00:00:00 41.1 kg/m2 [facility] BP Systolic 2021-05-08 00:00:00 124 mm[Hg] [facility] Body Weight 2021-05-08 00:00:00 5120 [oz_av] [facility] Systolic blood pressure 2021-02-13 05:30:00 115 mm[Hg] [facility] Diastolic blood pressure 2021-02-13 05:30:00 83 mm[Hg] [facility] Heart rate 2021-02-13 05:30:00 78 /min [facility] Respiratory rate 2021-02-13 05:30:00 19 /min [facility] Oxygen saturation in Arterial blood by Pulse oximetry 2021-02-13 05:30:00 97 /min [facility] Body temperature 2021-02-13 03:30:00 36.94 Char [facility] Body height 2021-02-13 03:30:00 188 cm [facility] Body weight 2021-02-13 03:30:00 137.939 kg [facility] BMI 2021-02-13 03:30:00 39.04 kg/m2 [facility] Procedures Procedure Date / Time Performed Performing Clinicia n Source XR CHEST 1 VW 2023-04-15 09:40:04 Eva Ramirez [facility] TROPONIN I 2023-04-15 09:32:00 Eva Ramirez [facility] COMP. METABOLIC PANEL ([id number]) 2023-04-15 09:32:00 Eva Ramirez [facility] CBC WITH DIFF 2023-04-15 09:32:00 Eva Ramirez [facility] N-TERMINAL PRO-BNP 2023-04-15 09:32:00 Eva Ramirez [facility] NOTICE OF PRIVACY PRACTICES 2023-04-15 08:54:44 Doctor Unassigned, [place] [facility] CONSENT/REFUSAL FOR DIAGNOSIS AND TREATMENT 2023-04-15 08:54:28 Doctor Unassigned, [place] [facility] CT LUMBAR SPINE WO CONTRAST 2022-11-21 20:32:53 Kane Huffman [facility] CT THORAX WO CONTRAST 2022-11-21 20:32:53 Chaitanya Huffman [facility] CONSENT/REFUSAL FOR DIAGNOSIS AND TREATMENT 2022-11-21 18:27:20 Doctor Unassigned, [place] [facility] URINALYSIS 2021-02-13 04:20:00 Eva Ramirez [facility] BASIC METABOLIC PANEL (NA, K, CL, CO2, GLUCOSE, BUN, CREATININE, CA) 2021-02-13 04:08:00 Eva Ramirez [facility] CBC WITH DIFF 2021-02-13 04:08:00 Eva Ramirez [facility] NOTICE OF PRIVACY PRACTICES 2021-02-13 03:11:24 Doctor Unassigned, [place] [facility] CONSENT/REFUSAL FOR DIAGNOSIS AND TREATMENT 2021-02-13 03:10:40 Doctor Unassigned, [place] [facility] Procedure on Hand [place] [facility] Repair of Testis [facility] Repair of Ankle [facility] Knee Surgery [facility] Encounters Start Date/Time End Date/Time Encounter Type Admission Type Attending Clinicians Care Facility Care Department Encounter ID Source 2023-06-23 10:00:00 2023-06-23 10:00:00 Outpatient R SUSSY FROST [facility] [id number] [facility] 2023-05-22 00:00:00 2023-05-22 00:00:00 Telephone Sussy Frost [facility]..840.114 350.1.13.10 [id number] [facility] 2023-04-15 03:08:00 2023-04-15 05:41:00 Emergency X EVA RAMIREZ [facility] ERT [id number] [facility] 2023-04-15 03:08:00 2023-04-15 05:41:00 Emergency Eva Ramirez [facility] .840.114 [id number] [id number] [id number] [facility] 2023-04-15 00:00:00 2023-04-15 00:00:00 Orders Only Doctor Unassigned, [place] [facility] [id number] 350.1.13.10 [id number] [id number] [facility] 2022-11-21 13:42:00 2022-11-21 17:40:00 Emergency Nathanael Kane A [facility] 1..840.114 350.1.13.10 [id number] [id number] [facility] 2022-11-21 13:42:00 2022-11-21 17:40:00 Emergency X KANE HUFFMAN [facility] ERT [id number] [facility] 2022-01-07 14:00:00 2022-01-07 14:00:[address] [facility] [id number] [facility] 2022-01-05 10:00:00 2022-01-05 10:00:[address] [facility] [id number] [facility] 2021-07-30 15:00:00 2021-07-30 15:00:[address] [facility] [id number] [facility] 2021-05-12 08:40:00 2021-05-12 08:40:00 Outpatient ERICKSON_R [facility] [id number] [facility] 2021-05-09 09:40:00 2021-05-09 09:40:00 Outpatient ERICKSON_R [facility] [id number] [facility] 2021-05-08 06:02:00 2021-05-08 06:02:00 Outpatient ERICKSON_R [facility] [id number] [facility] 2021-05-08 00:00:00 2021-05-08 00:00:00 Werner Zavaleta, DO: [address], [address], [place] [address] , Ph. [phone] [facility], DR. ZAVALETA [id number] [facility] 2021-05-08 00:00:00 2021-05-08 00:00:00 Outpatient Werner Zavaleta [facility] [id number] 2021-02-12 22:35:00 2021-02-13 01:24:00 Emergency Eva Ramirez [facility] [id number] 350.1.13.10 [id number] [id number] [facility] 2021-02-12 22:35:00 2021-02-13 01:24:00 Emergency X EVA RAMIREZ [facility] ERT [id number] [facility] 2021-02-12 00:00:00 2021-02-12 00:00:00 Orders Only Doctor Unassigned, [place] [facility] [id number] 350.1.13.10 [id number] [id number] [facility] Results Test Description Test Time Test Comments Results Result Co mments Source [facility] [id number] 10:25:15* Test Item Value Reference Range Interpretation Comme nts TROPONIN I (test code = 7252777964) 0.006 ng/mL <=0.034 HUGH (test code = [...] of biotin. Lab Interpretation (test code = 90478-3) Normal [facility] [id number] 10:22:54* Test Item Value Reference Range Interpretation Comme nts NT-proBNP (test code = 00110-7) 32 pg/mL <=125 Lab Interpretation (test cod e = 54799-7) Normal [facility]2023-12-28 10:13:53* Test Item Value Reference Range Interpretation Comme nts NA (test code = 3671027614) 141 mmol/L 135-145 K (test code = 1510486175) 3.9 mmol/L 3.5-5.0 CL (test code = 7968865239) 109 mmol/L 98-108 H CO2 TOTAL (test code = 9920275836) 25 mmol/L 23-31 AGAP (test code = 3207479880) 7 2-16 BUN (test code = 1093964952) 23 mg/dL 7-23 GLUCOSE (test code = 4933752734) 155 mg/dL 70-110 H CREATININE (test code = 6158462501) 0.70 mg/dL 0.60-1.25 TOTAL BILI (test code = 8763781792) 0.4 mg/dL 0.1-1.1 CALCIUM (test code = 0542167267) 8.8 mg/dL 8.6-10.6 T PROTEIN (test code = 1917135506) 6.8 g/dL 6.3-8.2 ALBUMIN (test code = 1029382412) 3.7 g/dL 3.5-5.0 ALK PHOS (test code = 5601056200) 58 U/L 34-122 ALTv (test code = 1742-6) 32 U/L 5-50 AST(SGOT) (test code = 5635688886) 27 U/L 13-40 eGFR (test code = 32177-1) 114.4 mL/min/1.73m2 CKD-EPI eGFR (2020). Assuming creatinine has been stable day-to-day for at least three months, the eGFR indicates Category G1 (>= 90 mL/min/1.73 m2) Lab Interpretation (test code = 99681-0) Abnormal [facility] 1 [id number] 09:50:51Examination: Chest one view (portable frontal) Ordering Physician: POLLY RAMIREZ Date: 04/15/2023 3:30 AM History: ? STEMI ? Comparison: None available Findings: AP chest, 2 images submitted for review. Pulmonary vascularity appears normal. The lungs are clear. There is nosignificant pleural effusion evident. There is no significant pneumothoraxevident. Heart size is normal.[facility] MET[facility]OLIC PANEL (NA, K, CL, CO2, GLUCOSE, BUN, CREATININE, CA)2021-02-13 04:53:21* Test Item Value Reference Range Interpretation Comme nts NA (test code = 3356749517) 137 mmol/L 135-145 K (test code = 7212237874) 3.8 mmol/L 3.5-5.0 CL (test code = 6428019860) 107 mmol/L 98-108 CO2 TOTAL (test code = 3908804248) 27 mmol/L 23-31 AGAP (test code = 1333758364) 2-16 BUN (test code = 5681021938) 15 mg/dL 7-23 GLUCOSE (test code = 5981839359) 133 mg/dL 70-110 H CREATININE (test code = 5948137692) 1.07 mg/dL 0.60-1.25 CALCIUM (test code = 7576648022) 8.8 mg/dL 8.6-10.6 eGFR (test code = 8698488560) mL/min/1.73m2 HUGH (test code = HUGH) Association [...] imaging tests). Lab Interpretation (test code = 03730-4) Abnormal [facility] WITH [id number] 04:33:05* Test Item Value Reference Range Interpretation Comme nts WBC (test code = 6690-2) See_Comment [[email or web address]] The system which generated this result transmitted reference range: 4.20 - 10.70 10*3/?L. The reference range was not used to interpret this result as normal/abnormal. RBC (test code = 789-8) See_Comment [[email or web address]] The system which generated this result transmitted [...] 33.7 g/dL 31.2-35.0 RDW-SD (test code = 01834-5) 39.7 fL 38.5-51.6 RDW-CV (test code = 788-0) 12.9 % 12.1-15.4 PLT (test code = 777-3) See_Comment [Automated messa ge] The system which generated this result transmitted reference range: 150 - 328 10*3/?L. The reference range was not used to interpret this result as normal/abnormal. MPV (test code = 84296-4) 10.0 fL 9.8-13.0 NRBC/100 WBC (test code = 5895698834) See_Comment [Automated me ssage] The system which generated this result transmitted reference range: 0.0 - 10.0 /100 WBCs. The reference range was not used to interpret this result as normal/abnormal. NRBC x10^3 (test code = 7368518431) <0.01 See_Comment [Automated me ssage] The system which generated this result transmitted reference range: 10*3/?L. The reference range was not used to interpret this result as normal/abnormal. GRAN MAT (NEUT) % (test code = 770-8) 49.2 % IMM GRAN % (test code = 5575636276) 0.50 % LYMPH % (test code = 736-9) 37.3 % MONO % (test code = 5905-5) 9.2 % EOS % (test code = 713-8) 2.8 % BASO % (test code = 706-2) 1.0 % GRAN MAT x10^3(ANC) (test code = 7120247707) 3.75 10*3/uL 1.99-6.95 IMM GRAN x10^3 (test code = 7369551086) 0.04 10*3/uL 0.00-0.06 LYMPH x10^3 (test code = 731-0) 2.84 10*3/uL 1.09-3.23 MONO x10^3 (test code = 742-7) 0.70 10*3/uL 0.36-1.02 EOS x10^3 (test code = 711-2) 0.21 10*3/uL 0.06-0.53 BASO x10^3 (test code = 704-7) 0.08 10*3/uL 0.01-0.09 [facility] Notes Date/Time Note Provider Source 2023-05-24 12:13:18 5yaOp8IB26zpP+k+9Vr9 wpJUYjfhnKO7p/g nLeb1A0ZftMVk7jtteulubJjerLSN3485-8 2:13:18 Contacted patients spouse and offered a sooner appointment. 75091-3Tfmalojux encounter LekbPL7349-13-97B18:14:10Telephone encounter NoteTXT1.2.840.029936.1.13.104.2.7. 2.712235|[id number] for patient cmph15563-9TieuVOULCOHEUWVGavmvjhxo C-CDA narrative cgdx753953188Qdqxd [address] Hojr[id number] 5DYQRJHGVHOJFMPJKIHZAVX3519-38-73T8 2:14:101.2.840.465799.1.72.3.15|1.2 .840.974836.1.13.104.2.7.2.727879_2 [id number] Rosalinda Portillo [facility] 2023-05-22 14:56:15 rAchTu23LK/8JVSTwtuV Oe2JN9Jixv42hIA iY03lztTSJU4QJBWeuRtDd2ATtA2F2123-4 4:56:15 Zachary Keating is a 48 year old malePatient prefers sooner appointment. Currently scheduled first available and added to waitlist. Patient's is aware the clinic will contact with sooner availability.Please contact 's contact number. 90339-5Aidwejiyd encounter CjrwAJ3032-63-38T56:58:24Telephone encounter NoteTXT1.2.840.863343.1.13.104.2.7. 2.905212|[id number] for patient ltny29627-7TmszGLFINJCUXOEHpyzqqetb C-CDA narrative hywd951023399Uucskq [id number] 2XHPLRAXEBGRLASQBMMDDRM6024-51-62Y0 4:58:241.2.840.083417.1.72.3.15|1.2 .840.045303.1.13.104.2.7.2.727879_2 [id number] Servando Addison [facility] 2023-04-15 05:40:20 a7lfDxnWGq3TZm2XUPuS pYoGClQRFopHxET 8Zv748Gi8Lkh2n547Tpa710OLbU6L6275-5 06-16T05:40:20 Pt given printed and verbal discharge instructions [...] with steady gait, in no apparent distress, 53694-1Qmsefgslx department KkzfRF6845-70-96Y94:41:45Emergency department NoteTXT1.2.840.044741.1.13.104.2.7. 2.174327|[id number] for patient okwi48284-3AywpGXDWDXHBAWUGjaxyqwbe C-CDA narrative text[id number] 4MWPVGULMXNPAXFWPYTZVLP2002-77-26H7 5:41:451.2.840.439456.1.72.3.15|1.2 .840.212734.1.13.104.2.7.2.727879_1 [id number] [facility] 2023-04-15 03:08:52 xHOvWiETEncHkLdUw44E BGCpOiLe6cXm5k8 r/nZ/nRYe0nKjceQuG188daH8ek+c7328-5 03:08:52 Pt states " I fell like shit. I can't breathe, I have COPD. I can't stop coughing. My inhaler is not working and neither is my breathing treatments." 77257-2Eusxzigql department Triage uyjvJL9620-31-40Y20:10:01[facility] Triage noteTXT1.2.840.290102.1.13.104.2.7. 2.068067|[id number] for patient wmfm60484-2Twkxstgns department NoteLNNARRATIVEFormatted C-CDA narrative text[address] ZbzxM[id number] 1DINZVKOUQBJFWXVTKTWXCI8135-38-64C9 3:10:011.2.840.860602.1.72.3.15|1.2 .840.205795.1.13.104.2.7.2.727879_1 [id number] [facility] 2023-04-15 02:55:00 5f9S6FIiPlimm/abqB84 R+CsdXndks9okqa 2HgzlM1YT3HpQQC5OqiEcTLTbyOim0095-3 02:55:00 [facility] Emergency Department NotePatient Name: Zachary KeatingDate of : 1975 48 year old maleTreatment Room: MT3/EF7Bhdcagg Record Number: [id number] Care Physician: Freya MorenoPatient Escorted by: Self [9]Mode of Arrival: Personal means [1]EMS Treatment 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 Pt was evaluated in :[place] X 2 and has work-up including Covid-19 and Influenza that was reportedly negativeHistory provided by: Medical records and patientLanguage primer inserting machine adjuster used: NoCoughSeverity: ModerateOnset quality: GradualDuration: 2 weeksTiming: [...] ResultExamination: Chest one view (portable frontal)Ordering Physician: VEA GONGORAMADate: 04/15/2023 3:30 AMHistory: STEMIComparison: None availableFindings: AP chest, 2 images submitted for review.Pulmonary vascularity appears normal. The lungs are clear. There is nosignificant pleural effusion evident. There is no significant pneumothoraxevident. Heart size is normal.IMPRESSIONImpression:No radiographic evidence of acute cardiopulmonary disease.Technical Quality: AdequateRL: 109AFC: 41889Scr of report Lab Results:Lab ResultsCBC WITH DIFF [...] 0.06 0.01 - 0.09 10*3/uLCOMP. METABOLIC PANEL (71614) - AbnormalNA 141 135 - 145 mmol/LK [...] U/LAST(SGOT) 27 13 - 40 U/LeGFR 114.4 mL/min/1.39c2VVCCPJQR I - NormalTROPONIN I 0.006 <=0.034 ng/mLN-TERMINAL [...] nebulizer solutionFirst Provider Eval:ED EventsDate/Time Event User Xveuxpvi24/28/23310 Medical Screening Begins EVA RAMIREZ MD --04/15/23310 First Provider Evaluation EVA RAMIREZ MD --ED COURSEDiagnosis/Impression as of 04/15/23 0537Viral bronchitisCOPD exacerbationHypertension, uncontrolledProcedures:ProceduresMD M:Medical Decision MakingZachary Keating is a 48 year old male [...] follow-upSDb gore, DOSpecialty: IM-PULMONARY DISEASE, IM-CRITICAL CARE [facility] AND FSIBHSQ[address] [place] [id number]: [phone] signed by:Eva Ramirez MD04/15/23 0537 72269-0Wpfdhhufp Emergency department ZedqFM6119-66-21D32:37:25Physician Emergency department NoteTXT1.2.840.030501.1.13.104.2.7. 2.088129|[id number] for patient eitz31176-9Xndayvpkh department NoteLNNARRATIVEFormatted C-CDA narrative text[address] OfvpMwpbhrufyMgfqpugdaALPC908766736 3ZVEPBEVJBIBEEOUDYGEOIK6819-19-20E5 5:37:251.2.840.530366.1.72.3.15|1.2 .840.555867.1.13.104.2.7.2.727879_1 [id number] [facility] 2022-11-21 18:11:41 ADyntkHdcJ4e7YzTgWgK /mhoxuMypQit+ci D1KLMfQ7PMclz9ORUtPrsx+26QCQ49751-0 11-21T18:11:41 Pt given printed and verbal discharge instructions regarding fall, rib fracture, knee pain, encouraged hydration.2 Prescriptions sent to pharmacy.Discussed ibuprofen and to take with food to avoid GI distress.Discussed Tylenol # 3/Nocatee side affects and to avoid driving/operating machinery/or [...] leaving via wheelchair, in no apparent distress. 43150-5Htdjnilmk department AdtkCY0077-14-36M13:13:33[facility] NoteTXT1.2.840.240127.1.13.104.2.7. 2.483756|[id number] for patient usoo87165-6TuozZK642933421Wjthsr M Herrera RNUT[address] PvpeBgtvwridvJnufilosrVCMM181845615 5FHVSLCPVXDNHRZOWCHWSQU2379-05-84R1 8:13:331.2.840.337359.1.72.3.15|1.2 .840.052388.1.13.104.2.7.2.727879_1 [id number] Shell Sears RN [facility] 2022-11-21 13:35:53 PUGOkWw5LBgKKwgWjIHj UJPFEwLeo430Jxf WxVj4RidHHb8xJqyQFHIt/2v0PlBs3806-3 3:35:53 Patient states: "About 1.5 hours ago I was playing basketball, went up for a rebound. I fell and landed on my hand on my left ribs with some people on top of me. I'm having bad rib pain and shortness of breath. Also my right knee hurts pretty bad" 51613-7Xmigflpwu department Triage bgoaQZ1032-74-04U95:36:53[facility] Triage noteTXT1.2.840.014147.1.13.104.2.7. 2.583361|[id number] for patient yxyw48512-2Uhnmumded department UzaqCR723703886Xfzqr M Cruz RN[address] MkjtEhcbkbbzrHavtyppuiCJKM815726958 9TMIKWFWHJYZZLSLPOGBZRL8130-49-60S2 3:36:531.2.840.100451.1.72.3.15|1.2 .840.134626.1.13.104.2.7.2.727879_1 [id number] Sowmya Arndt RN [facility] 2022-11-21 13:27:00 BFPT+wcyym8vgG9A2Z8w 0RgpNDYhYnimpXk CF7SLPfY29po+E6iRDMpRxp4e5dWe2670-0 3:27:00 [facility] Emergency Department NotePatient Name: Zachary Moodyte of : 1975 47 year old maleTreatment Room: [place] [address]Medical Record Number: [id number] Care Physician: Kye Hamilton Escorted by: Family [5]Mode of Arrival: Personal means [1]EMS Treatment Prior to ED Arrival: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 RL: 6600 AFC: 40987 End of report. THORAX WO CONTRAST Final [...] and comfortable with plan. Procedures: ProceduresMDM:Medical Decision Pidjzf79 yo M presents after fallProblems Addressed:Fall, initial [...] Follow-up:Electronically signed by: Kane Huffman MD11/21/22 1708 25734-3Sftcgzujd Emergency department XsrgTQ5007-50-10R89:08:54Physician Emergency department NoteTXT1.2.840.476769.1.13.104.2.7. 2.812412|[id number] for patient zkus76397-8Livbylhrf department NoteLNUTMBUT[address] Du[id number] 3BWIRMPNSSJBYABIKSQWYCU0579-55-71I8 7:08:541.2.840.600910.1.72.3.15|1.2 .840.324656.1.13.104.2.7.2.727879_1 [id number] [facility]
--- NOTE | 2023-08-09 12:17 | RAD REPORT ---
EXAM DESCRIPTION: SUEChest Single View08/09/2023 11:53 am CLINICAL HISTORY: CHEST PAIN COMPARISON: Chest Single View dated 08/05/2023; Chest Single View dated 07/13/2023; Chest Single View dated 05/10/2023; Chest Single View dated 04/26/2023 TECHNIQUE: Portable AP view of the chest. FINDINGS: The lungs are clear. No pneumothorax or effusion. The cardiomediastinal contours are unre markable. IMPRESSION: No acute cardiopulmonary process.
[2023-08-09] MEDS ORDERED: FUROSEMIDE 40 MG/4 ML VIAL ONE (13:01)
[2023-08-09] MEDS ORDERED: ONDANSETRON 4 MG/2 ML VIAL ONE (13:01)
[2023-08-09] MEDS ORDERED: MORPHINE 4 MG/ML SYR ONE (13:01)
[2023-08-09 13:28] LABS: Absolute Basophils 0.1 K/uL (0-0.5); Absolute Eosinophils 0.2 K/uL (0-0.5); Absolute Monocytes 0.9 K/uL (0.1-1.3); Absolute Neutrophil 5.2 K/uL (1.8-8.0); Basophils % 1.3 % (0-1.3); Eosinophils % 2.7 % (0-4.4); Hematocrit 41.7 % (39.6-49.0); Hemoglobin 13.7 g/dL (13.6-17.9); Lymphocytes % 23.5 % (15.3-44.8); MCH 28.8 pg (27.0-35.0); MCHC 32.9 g/dL (32.0-36.0); MCV 87.3 fL (80-100); MPV 9.2 fL (7.6-11.3); Monocytes % 11.1 % (3.3-12.3); Neutrophils % 61.4 % (41.7-73.7); Platelets 173 thou/uL (152-406); RBC Red Blood Cell Count 4.78 M/uL (4.33-5.43); Red Cell Distribution Width 13.3 % (12.1-15.2)
[2023-08-09 13:29] LABS: PT Prothrombin Time 10.6 SECONDS (9.5-12.5); Protime INR 0.96
[2023-08-09 13:46] LABS: Albumin 3.3 g/dL (3.4-5.0); Albumin/Globulin Ratio 0.8 (1.1-1.8); Anion Gap 8.1 mEq/L (5.0-15.0); Bilirubin Direct 0.1 mg/dL (0-0.2); Bilirubin Indirect, Calculated 0.3 mg/dL (0.2-0.8); Bilirubin Total 0.4 mg/dL (0.2-1.0); Globulin 3.9 g/dL (2.3-3.5); Potassium 4.1 mEq/L (3.5-5.1); Protein, Total 7.2 g/dL (6.4-8.2); Troponin High Sensitivity 7.1 pg/mL (<58.9)
[2023-08-09] MEDS ORDERED: NITROGLYCERIN 0.4 MG/TAB SL ONE (14:02)
--- NOTE | 2023-08-09 14:09 | ER ---
Nurse's Notes [facility] Name: Dennis Keating Age: 48 yrs Sex: Male : 1975 Arrival Date: 08/09/2023 Time: 11:12 Bed 7 Private MD: Diagnosis: Chest pain, unspecified;Peripheral edema Presentation: 08/08 11:13 Chief complaint: Patient states: chest pain which is sharp and constant, short of ko1 breath, since 0630 this morning. Coronavirus screen: At this time, the client does not indicate any symptoms associated with coronavirus-19. Ebola Screen: No symptoms or risks identified at this time. Initial Sepsis Screen: Does the patient meet any 2 criteria? No. Patient's initial sepsis screen is negative. Does the patient have a suspected source of infection? No. Patient's initial sepsis screen is negative. Risk Assessment: Do you want to hurt yourself or someone else? Patient reports no desire to harm self or others. Onset of symptoms was August 09, 2023. 11:13 Method Of Arrival: Wheelchair ko1 11:13 Acuity: AMNA 3 ko1 Triage Assessment: 11:19 General: Appears uncomfortable, obese, Behavior is calm, cooperative, appropriate for ko1 age. Pain: Complains of pain in chest. Cardiovascular: Reports chest pain, shortness of breath. Historical: - Allergies: 11:19 Aspirin; ko1 11:19 Cipro PO; ko1 11:19 Ibuprofen; ko1 11:19 PENICILLINS; ko1 11:19 Toradol; ko1 - Home Meds: 11:19 Adderall XR 30 mg Oral Capsule 1 cap 2 times per day [Active]; Lasix 20 mg oral tablet ko1 for edema [Active]; Albuterol Inhl [Active]; [place] 10/325 Oral 1 tab twice a day [Active]; Trazodone Oral [Active]; - PMHx: 11:19 Back pain; Chronic obstructive lung disease; CHRONS; Diverticulitis; Myocardial ko1 infarction; - PSHx: 11:19 Ankle; foot; hand; knee; testicle; bowel resection; ko1 - Immunization history:: Adult Immunizations unknown. - Infectious Disease History:: Denies. - Social history:: Smoking status: Patient reports the use of cigarette tobacco products, smokes one pack cigarettes per day. Screenin:07 [facility] ED Fall Risk Assessment (Adult) History of falling in the last 3 months, mb9 including since admission No falls in past 3 months (0 pts) Confusion or Disorientation No (0 pts) Intoxicated or Sedated No (0 pts) Impaired Gait No (0 pts) Mobility Assist Device Used No (0 pt) Altered Elimination No (0 pt) Score/Fall Risk Level 0 - 2 = Low Risk Oriented to surroundings, Maintained a safe environment, Educated pt \\T\\ family on fall prevention, incl call for assistance when getting out of bed. Abuse screen: Denies threats or abuse. Nutritional screening: No deficits noted. Tuberculosis screening: No symptoms or risk factors identified. Assessment: 14:17 Pain: Complains of pain in right leg and left leg Pain does not radiate. Pain currently mb9 is 10 out of 10 on a pain scale. Is. 15:00 Reassessment: Patient appears in no apparent distress at this time. No changes from ld1 previously documented assessment. Pt requesting to speak with CONTENT CURATOR. States "My legs are hurting bad and I want pain medication." Pt requested Dilaudid. Notified ERP. Patient states symptoms have not improved. 16:00 Reassessment: Patient appears in no apparent distress at this time. No changes from ld1 previously documented assessment. 17:15 Reassessment: Patient appears in no apparent distress at this time. No changes from ld1 previously documented assessment. Patient states symptoms have not improved. Vital Signs: 11:00 BP 116 / 84; Pulse 99; Resp 18; Pulse Ox 99% on R/A; ld1 11:13 BP 131 / 96; Pulse 85; Resp 20; Temp 98.3; Pulse Ox 98% ; ko1 13:15 BP 120 / 90; Pulse 75; Resp 20; Pulse Ox 99% on R/A; ld1 14:15 BP 127 / 55; Pulse 77; Resp 16; Pulse Ox 98% on R/A; ld1 15:00 BP 120 / 86; Pulse 79; Resp 15; Pulse Ox 97% on R/A; ld1 15:45 BP 116 / 97; Pulse 84; Resp 18; Pulse Ox 96% on R/A; ld1 16:30 BP 105 / 63; Pulse 81; Resp 20; Pulse Ox 97% on R/A; ld1 17:15 BP 115 / 76; Pulse 77; Resp 18; Pulse Ox 96% on R/A; ld1 ED Course: 11:13 Patient arrived in ED. im 11:13 [facility] jh7 11:13 Jose John MD is Attending Physician. jh7 11:19 Triage completed. ko1 11:19 Arm band placed on right wrist. Patient placed in an exam room, on a stretcher, on ko1 playground monitor, on pulse oximetry, Patient notified of wait time. 11:29 EKG done, by ED staff, reviewed by Yudith HUTCHISON. ko1 11:46 XRAY Chest (1 view) In Process Unspecified. EDMS 12:58 Deneen Shrestha RN is Primary Nurse. mb9 13:07 Placed in gown. Bed in low position. Call light in reach. Side rails up X 1. Client mb9 placed on continuous cardiac and pulse oximetry monitoring. NIBP monitoring applied. court monitor on. Pulse ox on. 14:00 Jessica Herron, ARAMIS is Primary Nurse. ld1 14:05 Patient requests pain medication. mb9 14:08 Yosi Chun is Hospitalizing Provider. jh7 14:14 Patient requests pain medication. mb9 17:30 No provider procedures requiring assistance completed. Patient admitted, IV remains in ld1 place. 17:30 O2 via RA. ld1 Administered Medications: 11:29 Not Given (Physician Discretion): vwywbufyqc26 mg IVP once; give over 2 minutes jh7 13:21 Drug: Furosemide IVP 80 mg IVP once; give over 2 minutes Route: IVP; Site: right ld1 antecubital; 13:21 Drug: morphine IVP or IV 4 mg IVP once over 4 mins Route: IVP; Infused Over: 4 mins; ld1 Site: right antecubital; 13:21 Drug: Ondansetron IVP 4 mg IVP once; over 2 minutes Route: IVP; Site: right antecubital;ld1 14:05 Drug: Nitroglycerin Sublingual 0.4 mg Sublingual once Route: Sublingual; mb9 14:50 Drug: fentaNYL (PF) IVP 50 mcg IVP once Route: IVP; Site: left antecubital; as6 Medication: 17:51 VIS not applicable for this client. ld1 Outcome: 14:08 Decision to Hospitalize by Provider. Sierra 17:49 Patient left the ED. ofelia 17:50 Admitted to Med/surg ld1 17:50 Condition: stable 17:50 Instructed on the need for admit, Signatures: Dispatcher [employer] EDJessica Faulkner, RN RN ld1 Eduar Zimmerman, RN RN as6 Yudith Hodge FNP PSYCHIATRIC NURSING AIDE 7 Mar Humphrey RN RN ko1 Deneen Shrestha, ARAMIS RN mb9 Divina Adames Corrections: (The following items were deleted from the chart) 12:27 12:26 Deneen Shrestha, ARAMIS is Primary Nurse. mb9 ld1
--- NOTE | 2023-08-09 14:09 | EDPHYS ---
Physician Documentation [facility] Name: Dennis Keating Age: 48 yrs Sex: Male : 1975 Arrival Date: 08/09/2023 Time: 11:12 Bed 7 Private MD: ED Physician Jose John HPI: 08/08 11:13 This 48 yrs old Male presents to ER via Wheelchair with complaints of Chest Pain, jh7 Shortness Of Breath. 11:13 48-year-old male with a past medical history of CHF, hypertension, [place] in 2021, and jh7 prediabetes presents to the ER complaining of chest pain and shortness of breath worsening since Wednesday. He reports that he was discharged from the hospital Wednesday morning for the same thing but the swelling in his legs have worsened and he states that his chest pain is worse than it was when he was initially admitted. Denies fever, syncope, dizziness, headache, abdominal pain, nausea/vomiting, and diarrhea.. Historical: - Allergies: 11:19 Aspirin; ko1 11:19 Cipro PO; ko1 11:19 Ibuprofen; ko1 11:19 PENICILLINS; ko1 11:19 Toradol; ko1 - Home Meds: 11:19 Adderall XR 30 mg Oral Capsule 1 cap 2 times per day [Active]; Lasix 20 mg oral tablet ko1 for edema [Active]; Albuterol [place]hl [Active]; [place] 10/325 Oral 1 tab twice a day [Active]; Trazodone Oral [Active]; - PMHx: 11:19 Back pain; Chronic obstructive lung disease; CHRONS; Diverticulitis; Myocardial ko1 infarction; - PSHx: 11:19 Ankle; foot; hand; knee; testicle; bowel resection; ko1 - Immunization history:: Adult Immunizations unknown. - Infectious Disease History:: Denies. - Social history:: Smoking status: Patient reports the use of cigarette tobacco products, smokes one pack cigarettes per day. ROS: 11:13 Constitutional: Per HPI jh7 Exam: 11:13 Constitutional: This is a well developed, well nourished patient who is awake, alert, jh7 and in no acute distress. Neck: Trachea midline, no thyromegaly or masses palpated, and no cervical lymphadenopathy. Supple, full range of motion without nuchal rigidity, or vertebral point tenderness. No Meningismus. Cardiovascular: Regular rate and rhythm with a normal S1 and S2. No gallops, murmurs, or rubs. Normal PMI, no JVD. No pulse deficits. Abdomen/GI: Soft, non-tender, with normal bowel sounds. No distension or tympany. No guarding or rebound. No evidence of tenderness throughout. Back: No spinal tenderness. No costovertebral tenderness. Full range of motion. Skin: Warm, dry with normal turgor. Normal color with no rashes, no lesions, and no evidence of cellulitis. 11:13 Neuro: Awake and alert, GCS 15, oriented to person, place, time, and situation. Motor strength 5/5 in all extremities. Sensory grossly intact. Normal gait. 11:13 Cardiovascular: Edema: 3+ edema to level of left midcalf, left ankle, left foot, right midcalf, right ankle and right foot, 11:13 Respiratory: mild respiratory distress is noted, Respirations: labored breathing, that is mild, Breath sounds: decreased breath sounds, are scattered, Vital Signs: 11:00 BP 116 / 84; Pulse 99; Resp 18; Pulse Ox 99% on R/A; ld1 11:13 BP 131 / 96; Pulse 85; Resp 20; Temp 98.3; Pulse Ox 98% ; ko1 13:15 BP 120 / 90; Pulse 75; Resp 20; Pulse Ox 99% on R/A; ld1 14:15 BP 127 / 55; Pulse 77; Resp 16; Pulse Ox 98% on R/A; ld1 15:00 BP 120 / 86; Pulse 79; Resp 15; Pulse Ox 97% on R/A; ld1 15:45 BP 116 / 97; Pulse 84; Resp 18; Pulse Ox 96% on R/A; ld1 16:30 BP 105 / 63; Pulse 81; Resp 20; Pulse Ox 97% on R/A; ld1 17:15 BP 115 / 76; Pulse 77; Resp 18; Pulse Ox 96% on R/A; ld1 MDM: 11:[address] [facility] 15:00 Differential diagnosis: bronchitis, pneumonia AMI, NSTEMI, pericarditis, myocarditis, jh7 costochondritis, stable angina, CHF exacerbation, COPD exacerbation. Data reviewed: vital signs, nurses notes, lab test result(s), EKG, radiologic studies, plain films. Consideration of Admission/Observation Patient was admitted/placed on observation. Management of patient was discussed with the following: Hospitalist: Dr. Chun. I considered the following discharge prescriptions or medication management in the emergency department Medications were administered in the Emergency Department. See MAR. Independent interpretation of the following test(s) in the Emergency Department EKG: See my EKG interpretation above. Historians other than the Patient: Spouse/Significant Other: . Care significantly affected by the following chronic conditions: Chronic Obstructive Pulmonary Disease, Obesity. Counseling: I had a detailed discussion with the patient and/or guardian regarding the historical points, exam findings, and any diagnostic results supporting the discharge/admit diagnosis, the need for further work-up and treatment in the hospital. Response to treatment: the patient's symptoms have mildly improved after treatment. 08/08 11:19 Order name: Basic Metabolic Panel; Complete Time: 13:48 [facility] 08/08 11:19 Order name: CBC with Diff; Complete Time: 13:44 [facility] 08/08 11:19 Order name: LFT's; Complete Time: 13:48 [facility] 08/08 11:19 Order name: Magnesium; Complete Time: 13:48 [facility] 08/08 11:19 Order name: NT PRO-BNP; Complete Time: 13:48 [facility] 08/08 11:19 Order name: PT-INR; Complete Time: 13:44 [facility] 08/08 11:19 Order name: Troponin HS; Complete Time: 13:48 [facility] 08/08 14:03 Order name: Troponin High Sensitivity; Complete Time: 15:43 [facility] 08/08 15:11 Order name: Urinalysis w/ reflexes EDMS 08/08 11:19 Order name: XRAY Chest (1 view); Complete Time: 12:20 [facility] 08/08 11:19 Order name: EKG; Complete Time: 11:19 [facility] 08/08 11:19 Order name: Cardiac monitoring; Complete Time: 13:01 [facility] 08/08 11:19 Order name: EKG - Nurse/Tech; Complete Time: 11:29 [facility] 08/08 11:19 Order name: IV Saline Lock; Complete Time: 13:21 [facility] 08/08 11:19 Order name: Labs collected and sent; Complete Time: 13:21 [facility] 08/08 11:19 Order name: O2 Per Protocol; Complete Time: 13: 7 08/08 11:19 Order name: O2 Sat Monitoring; Complete Time: : EC: Rate is 79 beats/min. Rhythm is regular. QRS [place] is Normal. GA interval is normal at [facility] 160 msec. QRS interval is normal at 88 msec. QT interval is normal at 390 msec. No Q waves. T waves are Normal. No ST changes noted. Clinical impression: Normal ECG. Administered Medications: 11:29 Not Given (Physician Discretion): [id number] mg IVP once; give over [address] [facility] 13:21 Drug: Furosemide IVP 80 mg IVP once; give over 2 minutes Route: IVP; Site: right ld1 antecubital; 13:21 Drug: morphine IVP or IV 4 mg IVP once over 4 mins Route: IVP; Infused Over: 4 mins; ld1 Site: right antecubital; 13:21 Drug: Ondansetron IVP 4 mg IVP once; over 2 minutes Route: IVP; Site: right antecubital;ld1 14:05 Drug: Nitroglycerin Sublingual 0.4 mg Sublingual once Route: Sublingual; mb9 14:50 Drug: fentaNYL (PF) IVP 50 mcg IVP once Route: IVP; Site: left antecubital; as6 Disposition: 19:56 Co-signature as Attending Physician, Jose John MD I reviewed the patient's care rn provided by the Advanced Practice Provider and agree with the diagnosis and treatment plan. Disposition Summary: 08/09/23 14:08 Hospitalization Ordered Notes: Hospitalization Status: Observation [facility] Provider: Yosi Chun [facility] Condition: Fair [facility] Problem: chronic [facility] Symptoms: have worsened [facility] Bed/Room Type: Standard [facility] Location: Telemetry/MedSurg (observation)(08/09/23 16:48) bd Room Assignment: 406(08/09/23 16:48) Diagnosis - Chest pain, unspecified [facility] - Peripheral edema [facility] Forms: - Medication Reconciliation Form [facility] - SBAR form [facility] - Leadership Thank You Letter [facility] Signatures: Dispatcher [employer] EDMS Gertrudis Horne Roman, MD MD rn Sims, Lauren, RN RN ld1 Eduar Zimmerman RN RN as6 Yudith Hodge, UNDERBASTER UNDERBASTER jh7 Mar Humphrey, RN RN ko1 Deneen Shrestha, RN RN mb9 Corrections: (The following items were deleted from the chart) 11:19 11:19 BASIC METABOLIC PANEL+C.LAB.BRZ ordered. EDMS EDMS 11:19 11:19 CBC+H.LAB.BRZ ordered. EDMS EDMS 11:19 11:19 HEPATIC FUNCTION+C.LAB.BRZ ordered. EDMS EDMS 11:19 11:19 MAGNESIUM+C.LAB.BRZ ordered. EDMS EDMS 11:19 11:19 PROBNP+C.LAB.BRZ ordered. EDMS EDMS 11:19 11:19 PROTIME (+INR)+COAG.LAB.BRZ ordered. EDMS EDMS 11:19 11:19 Troponin High Sensitivity+C.LAB.BRZ ordered. EDMS EDMS 15:38 14:08 [facility] bd 15:40 15:38 207 bd bd 15:41 14:08 Telemetry/MedSurg (observation) [facility] bd 15:41 15:40 bd bd 16:48 15:41 BR ER HOLD bd bd 16:48 15:41 ERHOLD- bd bd
--- NOTE | 2023-08-09 14:29 | P.HP ---
Certification for Inpatient Patient admitted to: Observation With expected LOS: <2 Midnights Patient will require the following post-hospital care: None Practitioner: I am a practitioner with admitting privileges, knowledge of patient current condition, hospital course, and medical plan of care. Services: Services provided to patient in accordance with Admission requirements found in Title 42 Section 412.3 of the Code of Federal Regulations Patient History Date of Service: 08/09/23 Reason for admission: Chest pain r/o History of Present Illness: Dennis Keating is a 48 year old male with Pmhx back pain, CHF, COPD, Crohn's, diverticulitis, myocardial infarction (2021) who presents to the ED with chief complaint of chest pain. Chest pain and shortness of breath have been worsening since Wednesday. He reports being discharged from the hospital Wednesday morning and edema to bilateral lower extremities and chest pain have worsened. Reports still taking his home medications including Lasix. Initial vitals BP 131 / 96; Pulse 85; Resp 20; Temp 98.3; Pulse Ox 98% Laboratory evaluation unremarkable Chest x-ray reports "The lungs are clear. No pneumothorax or effusion. The cardiomediastinal contours are unremarkable. IMPRESSION: No acute cardiopulmonary process." Dennis will be admitted for further evaluation of chest pain and lower extremity edema. Allergies aspirin Allergy (Verified 11/14/17 16:10) Itching/Hives/Rash ibuprofen Allergy (Verified 11/14/17 16:10) Itching/Hives/Rash ketorolac tromethamine [From Toradol] Allergy (Verified 11/14/17 16:10) Itching/Hives/Rash Penicillins Allergy (Verified 11/14/17 16:10) Itching/Hives/Rash Cipro PO Allergy (Uncoded 11/14/17 15:48) Unknown Home Medications: Atorvastatin Calcium 10 mg PO BID 08/06/23 Fluticasone/Salmeterol [Advair 250-50 Diskus] 1 each IH DAILY 08/06/23 Hydrocodone 10/APAP 325 [[place] 10/325*] 1 tab PO Q6H PRN tab 08/07/23 carvediloL [Carvedilol] 6.25 mg PO BID #60 tab 08/07/23 ALPRAZolam [Alprazolam] 1 tab PO BEDTIME 08/09/23 Amlodipine [Norvasc*] 5 mg PO BID 08/09/23 Codeine Phosphate/Guaifenesin [Codeine-Guaifen 10-100 mg/5 ml] 5 ml PO DAILY PRN 08/09/23 Dicyclomine [Bentyl*] 1 cap PO DAILY PRN 08/09/23 Ergocalciferol (Vitamin D2) [Vitamin D 50,000 Unit Cap] 1 cap PO DAILY 08/09/23 Furosemide 20 mg PO DAILY 08/09/23 Zolpidem Tartrate [Ambien*] 1 tab PO BEDTIME 08/09/23 - Past Medical/Surgical History Diabetic: No -: crohns, diverticulitis -: Chronic Back pain -: RT foot ,ankle, knee -: Colon resection 2013 -: Testicular sx Psychosocial/ Personal History: , occasional alcohol use 1-2 times monthly socially. - Family History Mother -: Hypertension, Other (see notes) Notes: COPD Father -: Hypertension, Other (see notes) Notes: AFIB - Social History Alcohol use: Yes CD- Drugs: No Caffeine use: Yes Review of Systems Cardiovascular: Chest Pain, Orthopnea, Edema (bilateral lower extremity) Physical Examination - Physical Exam General: Alert, In no apparent distress, Oriented x3 HEENT: Atraumatic, Normocephalic, PERRLA Neck: Supple, JVD not distended Respiratory: Clear to auscultation bilaterally, Normal air movement Cardiovascular: Normal pulses, Regular rate/rhythm, Normal S1 S2 Capillary refill: <2 Seconds Gastrointestinal: Normal bowel sounds, Soft and benign, Distended Musculoskeletal: Swelling (bilateral lower extremities) Integumentary: No rashes Neurological: Normal speech, Other (easily aggitated) - Studies Laboratory Data (last 24 hrs) 08/09/23 08/09/23 08/09/23 13:14 13:14 13:14 WBC 8.40 Hgb 13.7 Hct 41.7 Plt Count 173 PT 10.6 INR 0.96 Sodium 138 Potassium 4.1 BUN 10 Creatinine 0.94 Glucose 91 Magnesium 2.0 Total Bilirubin 0.4 AST 34 ALT 71 H Alkaline Phosphatase 83 Assessment and Plan - Plan Assessment and plan Bilateral lower extremity edema likely secondary to congestive heart failure History of myocardial infarction (2021) -Chest x-ray reports "The lungs are clear. No pneumothorax or effusion. The cardiomediastinal contours are unremarkable. IMPRESSION: No acute cardiopulmonary process." -ECHO 07/2023 showing mild mitral regurgitation, EF 64% -Troponin 7.1/7.4 -Diuresis- bumex -Strict I and O -Daily weight -Continue aspirin and statin daily -Blood pressure control -pain control COPD -Continue home medication - nebulizer treatments History of Crohn's/diverticulitis History of chronic back pain -Continue home medication Smoking abuse -Smoking cessation education provided DVT PPx Lovenox Full code LOS 2 days Discharge Plan: Home Plan to discharge in: 24 Hours - Advance Directives Does patient have a Living Will: No Does patient have a Durable POA for Healthcare: No
[2023-08-09] MEDS ORDERED: FENTANYL CITR 100 MCG/2 ML ONE (14:46)
[2023-08-09] MEDS ORDERED: HYDRALAZINE HCL 20 MG/ML VIAL IV PRN (15:16)
[2023-08-09] MEDS: ENOXAPARIN 40 MG/0.4 ML SQ SCH (16:00)
[2023-08-09] MEDS ORDERED: ENOXAPARIN 40 MG/0.4 ML SQ ONE (16:55)
[2023-08-09] MEDS ORDERED: HYDROCODONE/APAP 10/325 TAB ONE (16:55)
[2023-08-09] MEDS: HYDROCODONE/APAP 10/325 TAB PO PRN (17:00)
[2023-08-09 18:23] VITALS: O2SAT 98
[2023-08-09] MEDS ORDERED: IPRATROPIUM BROM 0.5MG/2.5ML NEB PRN (18:52)
[2023-08-09 18:53] VITALS: BMI 46.8
[2023-08-09] MEDS ORDERED: ALBUTEROL 2.5 MG/3 ML NEB SOL NEB PRN (18:53)
[2023-08-09] MEDS: MORPHINE 2 MG/ML SYR IV PRN (19:15)
[2023-08-09] MEDS: NICOTINE 21 MG/PAT TD SCH (20:47)
[2023-08-09] MEDS: BUMETANIDE 1 MG/4 ML VIAL IV SCH (20:48)
[2023-08-09] MEDS: ATORVASTATIN 10 MG TAB PO SCH (20:49)
[2023-08-09] MEDS: AMLODIPINE 5 MG TAB PO SCH (20:49)
[2023-08-09] MEDS: ALPRAZOLAM 1 MG TABLET PO SCH (20:49)
[2023-08-10 06:56] LABS: Absolute Basophils 0.1 K/uL (0-0.5); Absolute Eosinophils 0.2 K/uL (0-0.5); Absolute Lymphocytes (CBC) 1.8 K/uL (0.7-4.9); Absolute Monocytes 0.6 K/uL (0.1-1.3); Absolute Neutrophil 4.1 K/uL (1.8-8.0); Basophils % 1.5 % (0-1.3); Eosinophils % 2.3 % (0-4.4); Hematocrit 40.1 % (39.6-49.0); Hemoglobin 13.3 g/dL (13.6-17.9); Lymphocytes % 26.1 % (15.3-44.8); MCHC 33.1 g/dL (32.0-36.0); MCV 87.4 fL (80-100); Monocytes % 9.1 % (3.3-12.3); Platelets 167 thou/uL (152-406); RBC Red Blood Cell Count 4.59 M/uL (4.33-5.43); Red Cell Distribution Width 13.2 % (12.1-15.2)
[2023-08-10 07:11] LABS: Anion Gap 5.8 mEq/L (5.0-15.0); Magnesium 2.2 mg/dL (1.6-2.4); Phosphorus 3.8 mg/dL (2.5-4.9); Potassium 3.8 mEq/L (3.5-5.1); Troponin High Sensitivity 5.8 pg/mL (<58.9)
[2023-08-10] MEDS: POTASSIUM CL SA 10 MEQ TAB PO ONE (08:37)
[2023-08-10 09:49] VITALS: TEMP 97.3
[2023-08-10] MEDS: carvediloL 6.25 MG TAB PO SCH (10:10)
[2023-08-10] MEDS: MORPHINE 4 MG/ML SYR IV PRN (10:10)
[2023-08-10 12:24] VITALS: BP 132/70
[2023-08-10] MEDS: BUMETANIDE 1 MG/4 ML VIAL IV ONE (15:26)
[2023-08-10] MEDS ORDERED: FUROSEMIDE 40 MG TABLET PO SCH (17:00)
--- NOTE | 2023-08-10 17:05 | CON ---
Date of Consultation: 08/10/2023 Reason For Consultation: Fluid retention. History Of Present Illness: 48-year-old male, history of CHF, COPD, Crohn's disease, who presented w ith shortness of breath, lower extremity edema. He was discharged recently at home on Lasix but he w as put also on amlodipine. He also has chest pain on and off. Past Medical History: As outlined above in the HPI. Medications: Refer to reconciliation sheet for detailed list. Allergies: LIST WAS REVIEWED. Social History: He does not drink or use any drugs, but he is an ex-smoker. Family History: No premature coronary artery disease or cancer. Review of Systems: All systems were reviewed, they were negative except what was mentioned in HPI. Physical Examination: Vital Signs: Reviewed. Head and Neck: Pupils are equal, reactive to light. Intact eye movements. No JVD. No cervical lym phadenopathy. Neck is supple. Thyroid is not enlarged. Lungs: Decreased breathing sounds bilaterally. No accessory muscle use or muscle retraction. Heart: Regular rate and rhythm. No extra sounds. Abdomen: Soft, nontender. Bowel sounds positive. No organomegaly. No masses or hernia. No rigidi ty or rebound. Extremities: Positive edema. No clubbing or cyanosis. Intact pulses. Skin: No rash or nodule. Neurologic: Alert, awake, oriented x3. No acute focal deficits appreciated. Investigations: Troponins are negative. BUN 12, creatinine 0.84, and hemoglobin is 13.3. Assessment And Recommendations: 1.Chest pain. It is atypical. He has risk factors. I recommend outpatient exercise stress test. His cardiac enzymes have been negative and I counseled against smoking and recommended to quit. 2.Chronic obstructive pulmonary disease with exacerbation. Recommended to quit smoking. 3.Lower extremity edema, significant, but no congestive heart failure per echo. I would recommend t o discontinue amlodipine and continue Lasix and obtain venous ultrasound to look for venous insuffici ency. 4.Dyslipidemia. Continue statin. SR/MODL Voice ID: [id number] Report ID: [id number]
== END 2023-08-10 16:28 | disposition home or self-care (01) ==
LOC: ER 11:12 → ERHOLD 15:06 → 4TH 17:09
PROVIDERS: ADMIT Internal Medicine; ATTEND Hospitalist
DX: R07.89 Other chest pain (principal); J44.1 Chronic obstructive pulmonary disease with (acute) exacerbation; R60.0 Localized edema; K50.90 Crohn's disease, unspecified, without complications; K57.92 Diverticulitis of intestine, part unspecified, without perforation or abscess without bleeding; J44.9 Chronic obstructive pulmonary disease, unspecified; M54.9 Dorsalgia, unspecified; I25.2 Old myocardial infarction; F17.210 Nicotine dependence, cigarettes, uncomplicated; E78.5 Hyperlipidemia, unspecified; Z71.3 Dietary counseling and surveillance; Z88.1 Allergy status to other antibiotic agents; Z88.0 Allergy status to penicillin; Z88.6 Allergy status to analgesic agent; Z88.8 Allergy status to other drugs, medicaments and biological substances
CPT/HCPCS: 93005; 85025 ×2; 80048 ×2; 36415; 83735 ×2; 84100; 85610; 80076; 84484 ×4; 83880; 71045; 99285; J1940; J1650 ×2; J3010; J2270 ×3; J2405; G0378

== ENCOUNTER 2023-10-04 14:49 | Emergency (ER) | payer OTHER ==
--- OUTSIDE RECORDS SUMMARY | 2023-10-04 14:52 | XMS REPORT | Continuity of Care Document ---
Author Name Unknown Address [address] [facility] [place] [address] [facility] Address [address] [facility] [address] [place] [address] Care Team Providers Care Boxing Trainer Name Role Phone Freya Moreno Primary Care Physician [phone] SUSSY FROST Attending Clinician UnavailUSSSY Shine Attending Clinician Sussy Mejias MD Attending Clinician [phone] EVA RAMIREZ Attending Clinician Unavailable Eva Ramirez MD Attending Clinician [phone] Doctor Unassigned, [place] Attending Clinician U Kane Rabago MD Attending Clinician [phone] KANE HUFFMAN Attending Clinician UnavailALBER De Los Santos Attending Clinician UnavailANA Jang Attending Clinician Unavailable LESTER ARTEAGA Attending Clinician Unavailabl e ERICKSON_R Attending Clinician Unavailable Werner Zavaleta Attending Clinician [phone] EVA RAMIREZ Admitting Clinician Unavailable KANE HUFFMAN Admitting Clinician Gerhard GLOVER Admitting Clinician Unavailable Payers Payer Name Policy Type Policy Number Effective Date Expirati on Date Source ANNETTE OLSON [facility] [id number] 00:00:00 [employer] MCARE ADV CHOICE PPO [id number] 2021 00:00:00 [facility] (MEDICARE REPLACEMENT/ADVANTA GE - PPO) [id number] Problems Condition Name Condition Details Condition Category Status Onset Date Resolution Date Last Treatment Date Treating Clinician Comments Source Bipolar disorder Bipolar Disorder Problem Active 05-08 00:00: 00 [facility] Depressive disorder Depressive Disorder Problem Active 05[facility] Attention deficit hyperactiv ity disorder Attention Deficit Hyperactiv ity Disorder Problem Active 05-08 00:00: 00 [facility] Hypertensi ve disorder Hypertensi ve Disorder Problem Active 05-08 00:00: 00 [facility] Chronic obstructiv e lung disease Chronic Obstructiv e Lung Disease Problem Active 05-08 00:00: 00 [facility] Crohn's disease Crohn's Disease Problem Active 05-08 00:00: 00 [facility] Diverticul itis Diverticul itis Problem Active 05-08 00:00: 00 [facility] Osteoarthr itis Osteoarthr itis Problem Active 05-08 00:00: 00 [facility] History of intravenou s drug abuse History of Intravenou s Drug Abuse Problem Active 05-08 00:00: 00 [facility] No known active problems No known active problems Disease [facility] Allergies, Adverse Reactions, Alerts Allergy Name Allergy Type Status Severity Reaction(s) Onset Date Inactive Date Treating Clinician Comments Source Ciproflo xacin Propensi ty to adverse reaction s Active Other - See comments 07-24 00:00: 00 [facility] CIPROFLO XACIN DRUG INGREDI Active Other-Cmnt 07-24 00:00: 00 [facility] Aspirin Propensi ty to adverse reaction s Active Rash 2014-04 00:00: 00 [facility] Ibuprofe n Propensi ty to adverse reaction s Active Rash 2014-04 00:00: 00 [facility] Penicill in Propensi ty to adverse reaction s Active Unknown - See comments 2014-04 00:00: 00 [facility] Ketorola c Propensi ty to adverse reaction s Active Unknown - See comments 2014-04 00:00: 00 [facility] ASPIRIN DRUG INGREDI Active Rash 2014-04 0 00:00: 00 [facility] IBUPROFE N DRUG INGREDI Active Rash 2014-04 00:00: 00 [facility] PENICILL IN DRUG INGREDI Active Unknown-Cmnt 2014-04 0 00:00: 00 [facility] KETOROLA C DRUG INGREDI Active Unknown-Cmnt 2014-04 0 00:00: 00 [facility] TORADOL Allergy to substanc e Active N[facility]a [facility] Aspirin Allergy to substanc e Active Nausea [facility] Ibuprofe n Allergy to substanc e Active Nausea [facility] PENICILL INS Allergy to substanc e Active Hives [facility] Social History Social Habit Start Date Stop Date Quantity Comments Source Gender identity [facility] Exposure to SARS-CoV-2 (event) Not sure [facility] History of tobacco use Cigarette Smoker [facility] History of Social function 2018-10-27 00:00:00 2018-10-27 00:00:00 [facility] Cigarette pack-years 2018-07-11 00:00:00 2018-07-11 00:00:00 [facility] Tobacco use and exposure 2018-07-11 00:00:00 2018-07-11 00:00:00 User of smokeless tobacco [facility] Cigarettes smoked current (pack per day) - Reported 2018-07-11 00:00:00 2018-07-11 00:00:00 [facility] Sex Assigned At 1975 00:00:00 1975 00:00:00 [facility] Smoking Status Start Date Stop Date Source Smokes tobacco daily 2018-07-11 00:00:00 [facility] Medications Ordered Medication Name Filled Medication Name Start Date Stop Date Current Medication? Ordering Clinician Indication Dosage Frequency Signature (SIG) Comments Components Source HYDROcodone -acetaminop hen (NORCO) 10-325 mg tablet 1 tablet 2022-04 12:15: 00 04-15 11:15 :00 No 1{tbl} 1 tablet, Oral, ONCE NOW, 1 dose, On Yolanda 04/15/23 at 0615, Routine [facility] magnesium sulfate in water 2 gram/50 mL (4 %) infusion 2 g 2022-04 12:00: 00 04-15 23:59 :00 No 2g 2 g, IV Piggyback, Administer over 60 Minutes, ONCE, 1 dose, On Yolanda 04/15/23 at 0600, Routine [facility] ipratropium -albuteroL (DUONEB) 0.5 mg-3 mg(2.5 mg base)/3 mL nebulizer solution 3 mL 2022-04 11:15: 00 Yes 3mL 3 mL, Inhalation , QID, First dose on Yolanda 04/15/23 at 0515, Until Discontinu ed, Routine [facility] ipratropium -albuteroL (DUONEB) 0.5 mg-3 mg(2.5 mg base)/3 mL nebulizer solution 3 mL 2022-04 10:30: 00 04-15 09:40 :00 No 3mL 3 mL, Inhalation , ONCE, 1 dose, On Yolanda 04/15/23 at 0430, Routine [facility] methylpredn isolone sod succ (SOLU-MEDRO L) injection 125 mg 2022-04 10:30: 00 04-15 09:34 :00 No 125mg 125 mg, Intravenou s, ONCE, 1 dose, On Yolanda 04/15/23 at 0430, 2 mL [facility] cyclobenzap rine 10 mg tablet 2022-04 05:28: 16 04-15 00:00 :00 No cyclobenza yann 10 mg tablet Take 1 tablet twice a day by oral route as directed for 28 days. [facility] albuterol 90 mcg/actuati on inhaler 2022-04 00:00: 00 Yes [id number] 2{puff} Inhale 2 Puffs every 4 (four) hours as needed for Wheezing or Shortness of Breath. [facility] predniSONE 20 mg tablet 2022-04 00:00: 00 Yes [id number] TAKE ONE TABLET ORALLY TWICE A DAY FOR FIVE DAYS [facility] albuterol 2.5 mg /3 mL (0.083 %) nebulizer solution 2022-04 00:00: 00 Yes [id number] 2.5mg Inhale 3 mL every 6 (six) hours as needed for Wheezing, Shortness of Breath, Bronchospa sm or Chest tightness. May also nebulize one extra every 6 hours. [facility] codeine-gua ifenesin 10-100 mg/5 mL oral solution 2022-04 00:00: 00 04-23 05:59 :00 No 10mL Take 10 mL by mouth every 6 (six) hours as needed for Cough for up to 7 days. Indication s: COUGH [facility] methocarbam oL (ROBAXIN) injection 1,000 mg 11-22 03:00: 00 Yes 1000mg 1,000 mg, Intravenou s, Q8H, First dose on 11/21/22 at 2200, Until Discontinu ed, Routine [facility] HYDROmorpho ne (DILAUDID) injection 1 mg 11-21 20:45: 00 11-21 22:14 :00 No 1mg 1 mg, Slow IV Push, ONCE, 1 dose, On 11/21/22 at 1545, SAM
Us e approved by (Faculty): ADC PROVIDER [facility] acetaminoph en ADULT (OFIRMEV) injection 1,000 mg 11-21 20:00: 00 11-21 20:02 :00 No 1000mg 1,000 mg, IV Infusion, at 400 mL/hr Administer over 15 Minutes, ONCE, 1 dose, On 11/21/22 at 1500, Routine
Indicatio n: Non-periop erative Patient
Approved by: Per Policy (NPO Status) [facility] morpHINE (4 mg/mL) injection 4 mg 11-21 20:00: 11-21 19:44 :00 No 4mg 4 mg, Slow IV Push, ONCE, 1 dose, On 11/21/22 at 1500, SAM [facility] cyclobenzap rine 10 mg tablet 11-21 17:05: 02 Yes cyclobenza yann 10 mg tablet Take 1 tablet twice a day by oral route as directed for 28 days. [facility] acetaminoph en-codeine 300-30 mg tablet 11-21 00:00: 00 Yes [id number] 1{tbl} Take 1 tablet by mouth every 6 (six) hours as needed for Pain (scale 4-6) for up to 15 doses. Indication s: acute pain [facility] cyclobenzap rine 10 mg tablet 11-21 00:00: 11-27 04:59 :00 No [id number] 10mg Take 1 tablet by mouth in the morning and 1 tablet at noon and 1 tablet in the evening. Do all this for 5 days. [facility] clindamycin in 5 % dextrose (CLEOCIN) [...] br>Restric sangeetha use approved by: ADC PROVIDER [facility] FENTanyl PF (SUBLIMAZE (PF)) injection 50 mcg 2020-04 05:15: 00 02-13 04:10 :00 No 50ug 50 mcg, Slow IV Push, ONCE, 1 dose, On Yolanda 02/13/21 at 0015, Routine [facility] FENTanyl PF (SUBLIMAZE (PF)) injection 50 mcg 2020-04 04:39: 00 02-13 04:45 :00 No 50ug 50 mcg, Slow IV Push, ONCE, 1 dose, On Wed02/12/21 at 2345, STAT [facility] gabapentin 300 mg capsule 2020-04 00:00: 00 04-15 00:00 :00 No [id number] 300mg Take 1 capsule by mouth 3 (three) times daily. [facility] traMADOL (ULTRAM) 50 mg tablet 07-24 00:00: 00 Yes [id number] 50mg Take 1 tablet by mouth every 6 (six) hours as needed for Pain (scale 4-6). [facility] proMETHazin e 25 mg tablet 07-24 00:00: 00 04-15 00:00 :00 No [id number] 25mg Take 1 tablet by mouth every 6 (six) hours as needed for Nausea and Vomiting (N/V). [facility] meloxicam 7.5 mg tablet 07-11 09:32: 26 Yes meloxicam 7.5 mg tablet [facility] ketorolac 10 mg tablet 07-11 09:32: 26 Yes 10mg Take 10 mg by mouth. [facility] budesonide- formoterol 160-4.5 mcg/actuati on inhaler 07-11 09:32: 26 Yes Symbicort 160 mcg-4.5 mcg/actuat ion HFA aerosol inhaler [facility] cyclobenzap rine 10 mg tablet 07-11 09:32: 26 Yes cyclobenza yann 10 mg tablet Take 1 tablet twice a day by oral route as directed for 28 days. [facility] HYDROcodone -acetaminop hen (NORCO) 10-325 mg tablet 07-11 09:22: 33 Yes 2{tbl} Take 2 Tabs by mouth daily. [facility] albuterol 90 mcg/actuati on inhaler 07-11 00:00: 00 Yes [id number] 2{puff} Inhale 2 Puffs every 6 (six) hours as needed for Wheezing or Shortness of Breath. [facility] CELECOXIB (CELEBREX ORAL) 2014-04 16:33: 56 Yes Take by mouth. [facility] alprazolam 1 mg tablet TAKE ONE (1) TABLET(S) BY MOUTH ONCE A DAY NEEDED. alprazolam 1 mg tablet TAKE ONE (1) TABLET(S) BY MOUTH ONCE A DAY NEEDED. No alprazolam 1 mg tablet TAKE ONE (1) TABLET(S) BY MOUTH ONCE A DAY NEEDED. [facility] clindamycin HCl 300 mg capsule TAKE 1 CAPSULE BY MOUTH FOUR TIMES DAILY clindamycin HCl 300 mg capsule TAKE 1 CAPSULE BY MOUTH FOUR TIMES DAILY No clindamyci n HCl 300 mg capsule TAKE 1 CAPSULE BY MOUTH FOUR TIMES DAILY [facility] dextroamphe tamine-amph etamine 20 mg tablet TAKE ONE (1) TABLET(S) BY MOUTH EVERY MORNING. dextroamphe tamine-amph etamine 20 mg tablet TAKE ONE (1) TABLET(S) BY MOUTH EVERY MORNING. No dextroamph etamine-am phetamine 20 mg tablet TAKE ONE (1) TABLET(S) BY MOUTH EVERY MORNING. [facility] Vital Signs Vital Name Observation Time Observation Value Comments S ource Heart rate 2023-04-15 11:17:00 94 /min [facility] Body temperature 2023-04-15 11:17:00 36.78 Char [facility] Respiratory rate 2023-04-15 11:17:00 18 /min [facility] Oxygen saturation in Arterial blood by Pulse oximetry 2023-04-15 11:17:00 97 /min [facility] Systolic blood pressure 2023-04-15 11:07:00 130 mm[Hg] [facility] Diastolic blood pressure 2023-04-15 11:07:00 118 mm[Hg] [facility] Body height 2023-04-15 09:11:00 190.5 cm [facility] Body weight 2023-04-15 09:11:00 149.687 kg [facility] BMI 2023-04-15 09:11:00 41.25 kg/m2 [facility] Systolic blood pressure 2022-11-21 22:14:00 122 mm[Hg] [facility] Diastolic blood pressure 2022-11-21 22:14:00 82 mm[Hg] [facility] Heart rate 2022-11-21 22:14:00 76 /min [facility] Respiratory rate 2022-11-21 22:14:00 16 /min [facility] Oxygen saturation in Arterial blood by Pulse oximetry 2022-11-21 22:14:00 96 /min [facility] Body temperature 2022-11-21 18:37:00 36.83 Char [facility] Body height 2022-11-21 18:37:00 190.5 cm [facility] Body weight 2022-11-21 18:37:00 154.223 kg [facility] BMI 2022-11-21 18:37:00 42.50 kg/m2 [facility] BP Diastolic 2021-05-08 00:00:00 82 mm[Hg] [facility] Height 2021-05-08 00:00:00 74 [in_i] [facility] BMI (Body Mass Index) 2021-05-08 00:00:00 41.1 kg/m2 [facility] BP Systolic 2021-05-08 00:00:00 124 mm[Hg] [facility] Body Weight 2021-05-08 00:00:00 5120 [oz_av] [facility] Systolic blood pressure 2021-02-13 05:30:00 115 mm[Hg] [facility] Diastolic blood pressure 2021-02-13 05:30:00 83 mm[Hg] [facility] Heart rate 2021-02-13 05:30:00 78 /min [facility] Respiratory rate 2021-02-13 05:30:00 19 /min [facility] Oxygen saturation in Arterial blood by Pulse oximetry 2021-02-13 05:30:00 97 /min [facility] Body temperature 2021-02-13 03:30:00 36.94 Char [facility] Body height 2021-02-13 03:30:00 188 cm [facility] Body weight 2021-02-13 03:30:00 137.939 kg [facility] BMI 2021-02-13 03:30:00 39.04 kg/m2 [facility] Procedures Procedure Date / Time Performed Performing Clinicia n Source XR CHEST 1 VW 2023-04-15 09:40:04 Eva Ramirez [facility] TROPONIN I 2023-04-15 09:32:00 Eva Ramirez [facility] COMP. METABOLIC PANEL ([id number]) 2023-04-15 09:32:00 Eva Ramirez [facility] CBC WITH DIFF 2023-04-15 09:32:00 Eva Ramirez [facility] N-TERMINAL PRO-BNP 2023-04-15 09:32:00 Eva Ramirez [facility] NOTICE OF PRIVACY PRACTICES 2023-04-15 08:54:44 Doctor Unassigned, [place] [facility] CONSENT/REFUSAL FOR DIAGNOSIS AND TREATMENT 2023-04-15 08:54:28 Doctor Unassigned, [place] [facility] CT LUMBAR SPINE WO CONTRAST 2022-11-21 20:32:53 Kane Huffman [facility] CT THORAX WO CONTRAST 2022-11-21 20:32:53 Chaitanya Huffman [facility] CONSENT/REFUSAL FOR DIAGNOSIS AND TREATMENT 2022-11-21 18:27:20 Doctor Unassigned, [place] [facility] URINALYSIS 2021-02-13 04:20:00 Eva Ramirez [facility] BASIC METABOLIC PANEL (NA, K, CL, CO2, GLUCOSE, BUN, CREATININE, CA) 2021-02-13 04:08:00 Eva Ramriez [facility] CBC WITH DIFF 2021-02-13 04:08:00 Eva Ramirez [facility] NOTICE OF PRIVACY PRACTICES 2021-02-13 03:11:24 Doctor Unassigned, [place] [facility] CONSENT/REFUSAL FOR DIAGNOSIS AND TREATMENT 2021-02-13 03:10:40 Doctor Unassigned, [place] [facility] Procedure on Hand [place] [facility] Repair of Testis [facility] Repair of Ankle [facility] Encounters Start Date/Time End Date/Time Encounter Type Admission Type Attending Clinicians Care Facility Care Department Encounter ID Source 2023-06-23 10:00:00 2023-06-23 10:00:00 Outpatient R SUSSY FROST STRAHIL [facility] [id number] [facility] 2023-05-22 00:00:00 2023-05-22 00:00:00 [facility] ..840.114 350.1.13.10 [id number] [id number] [facility] 2023-04-15 03:08:00 2023-04-15 05:41:00 Emergency X EVA RAMIREZ [facility] ERT [id number] [facility] 2023-04-15 03:08:00 2023-04-15 05:41:00 Emergency Eva Ramirez [facility] .840.114 350.1.13.10 [id number] [id number] [facility] 2023-04-15 00:00:00 2023-04-15 00:00:00 Orders Only Doctor Unassigned, [place] [facility] [id number] 350.1.13.10 4.2.7.2.686 [id number] [facility] 2022-11-21 13:42:00 2022-11-21 17:40:00 Emergency WildfeliciaKane A [facility] 1..840.114 350.1.13.10 4.2.7.2.686 [id number] [facility] 2022-11-21 13:42:00 2022-11-21 17:40:00 Emergency X KANE HUFFMAN [facility] ERT [id number] [facility] 2022-01-07 14:00:00 2022-01-07 14:00:00 Outpatient R ALBER REID [facility] [id number] [facility] 2022-01-05 10:00:00 2022-01-05 10:00:00 Outpatient ANA BRAND [facility] [id number] [facility] 2021-07-30 15:00:00 2021-07-30 15:00:00 Outpatient LESTER SANDY [facility] [id number] [facility] 2021-05-12 08:40:00 2021-05-12 08:40:00 Outpatient ERICKSON_R [facility] [id number] [facility] 2021-05-09 09:40:00 2021-05-09 09:40:00 Outpatient ERICKSON_R [facility] [id number] [facility] 2021-05-08 06:02:00 2021-05-08 06:02:00 Outpatient ERICKSON_R [facility] [id number] [facility] 2021-05-08 00:00:00 2021-05-08 00:00:00 Werner Zavaleta, DO: [address], [address], [place] [address] , Ph. [facility], DR. ZAVALETA [id number] [facility] 2021-05-08 00:00:00 2021-05-08 00:00:00 Outpatient Werner Zavaleta [facility] [id number] 2021-02-12 22:35:00 2021-02-13 01:24:00 Emergency Eva Ramirez [facility] [id number] [id number] [id number] [id number] [facility] 2021-02-12 22:35:00 2021-02-13 01:24:00 Emergency X EVA RAMIREZ [facility] ERT [id number] [facility] 2021-02-12 00:00:00 2021-02-12 00:00:00 Orders Only Doctor Unassigned, [place] [facility] [id number] 350.1.13.10 [id number] [id number] [facility] Results Test Description Test Time Test Comments Results Result Co mments Source [facility] [id number] 10:25:15* Test Item Value Reference Range Interpretation Comme nts TROPONIN I (test code = 6378795069) 0.006 ng/mL <=0.034 HUGH (test code = [...] of biotin. Lab Interpretation (test code = 77630-1) Normal [facility] [id number] 10:22:54* Test Item Value Reference Range Interpretation Comme nts NT-proBNP (test code = 79919-0) 32 pg/mL <=125 Lab Interpretation (test cod e = 26625-9) Normal [facility]2023-12-28 10:13:53* Test Item Value Reference Range Interpretation Comme nts NA (test code = 8912823963) 141 mmol/L 135-145 K (test code = 9083061791) 3.9 mmol/L 3.5-5.0 CL (test code = 3278460011) 109 mmol/L 98-108 H CO2 TOTAL (test code = 7503766940) 25 mmol/L 23-31 AGAP (test code = 8316892085) 7 2-16 BUN (test code = 6278071520) 23 mg/dL 7-23 GLUCOSE (test code = 9968550347) 155 mg/dL 70-110 H CREATININE (test code = 6589639430) 0.70 mg/dL 0.60-1.25 TOTAL BILI (test code = 9578994523) 0.4 mg/dL 0.1-1.1 CALCIUM (test code = 5135707481) 8.8 mg/dL 8.6-10.6 T PROTEIN (test code = 4203844393) 6.8 g/dL 6.3-8.2 ALBUMIN (test code = 9737179701) 3.7 g/dL 3.5-5.0 ALK PHOS (test code = 4155233329) 58 U/L 34-122 ALTv (test code = 1742-6) 32 U/L 5-50 AST(SGOT) (test code = 7062332370) 27 U/L 13-40 eGFR (test code = 38750-8) 114.4 mL/min/1.73m2 CKD-EPI eGFR (2020). Assuming creatinine has been stable day-to-day for at least three months, the eGFR indicates Category G1 (>= 90 mL/min/1.73 m2) Lab Interpretation (test code = 38407-1) Abnormal [facility] 1 [id number] 09:50:51Examination: Chest one view (portable frontal) Ordering Physician: POLLY RAMIREZ Date: 04/15/2023 3:30 AM History: ? STEMI ? Comparison: None available Findings: AP chest, 2 images submitted for review. Pulmonary vascularity appears normal. The lungs are clear. There is nosignificant pleural effusion evident. There is no significant pneumothoraxevident. Heart size is normal.[facility] (NA, K, CL, CO2, GLUCOSE, BUN, CREATININE, CA)2021-02-13 04:53:21* Test Item Value Reference Range Interpretation Comme nts NA (test code = 8399687659) 137 mmol/L 135-145 K (test code = 8291853789) 3.8 mmol/L 3.5-5.0 CL (test code = 4727579715) 107 mmol/L 98-108 CO2 TOTAL (test code = 9237673376) 27 mmol/L 23-31 AGAP (test code = 4071127205) 2-16 BUN (test code = 2847015321) 15 mg/dL 7-23 GLUCOSE (test code = 8820500191) 133 mg/dL 70-110 H CREATININE (test code = 0714407111) 1.07 mg/dL 0.60-1.25 CALCIUM (test code = 6988218205) 8.8 mg/dL 8.6-10.6 eGFR (test code = 1854610073) mL/min/1.73m2 HUGH (test code = HUGH) Association [...] imaging tests). Lab Interpretation (test code = 43356-9) Abnormal [facility] WITH [id number] 04:33:05* Test Item Value Reference Range Interpretation Comme nts WBC (test code = 6690-2) See_Comment [charity: water] The system which generated this result transmitted reference range: 4.20 - 10.70 10*3/?L. The reference range was not used to interpret this result as normal/abnormal. RBC (test code = 789-8) See_Comment [charity: water] The system which generated this result transmitted [...] 33.7 g/dL 31.2-35.0 RDW-SD (test code = 66061-2) 39.7 fL 38.5-51.6 RDW-CV (test code = 788-0) 12.9 % 12.1-15.4 PLT (test code = 777-3) See_Comment [Automated messa ge] The system which generated this result transmitted reference range: 150 - 328 10*3/?L. The reference range was not used to interpret this result as normal/abnormal. MPV (test code = 79103-0) 10.0 fL 9.8-13.0 NRBC/100 WBC (test code = 9166361402) See_Comment [Automated me ssage] The system which generated this result transmitted reference range: 0.0 - 10.0 /100 WBCs. The reference range was not used to interpret this result as normal/abnormal. NRBC x10^3 (test code = 0646330484) <0.01 See_Comment [Automated me ssage] The system which generated this result transmitted reference range: 10*3/?L. The reference range was not used to interpret this result as normal/abnormal. GRAN MAT (NEUT) % (test code = 770-8) 49.2 % IMM GRAN % (test code = 0263403990) 0.50 % LYMPH % (test code = 736-9) 37.3 % MONO % (test code = 5905-5) 9.2 % EOS % (test code = 713-8) 2.8 % BASO % (test code = 706-2) 1.0 % GRAN MAT x10^3(ANC) (test code = 4807834798) 3.75 10*3/uL 1.99-6.95 IMM GRAN x10^3 (test code = 3475048845) 0.04 10*3/uL 0.00-0.06 LYMPH x10^3 (test code = 731-0) 2.84 10*3/uL 1.09-3.23 MONO x10^3 (test code = 742-7) 0.70 10*3/uL 0.36-1.02 EOS x10^3 (test code = 711-2) 0.21 10*3/uL 0.06-0.53 BASO x10^3 (test code = 704-7) 0.08 10*3/uL 0.01-0.09 [facility] Notes Date/Time Note Provider Source 2023-05-24 12:13:18 [id number] ormatting of this note might be different from the original.Contacted patients spouse and offered a sooner appointment. [id number] encounter [id number]:14:10Telephone encounter [id number]. [id number] for patient nepn61663-6PyqxTHWTCDZLASDObknlvsrd C-CDA narrative [id number] [id number] 2AUUPVFRHSYMXGFNRAMPPCX5260-80-85B6 2:14:101.2.840.661531.1.72.3.15|1.2 .840.404403.1.13.104.2.7.2.727879_2 [id number] Rosalinda Portillo [facility] 2023-05-22 14:56:15 8233-17-71Z88:56:15F ormatting of this note might be different from the original.Zachary Keating is a 48 year old malePatient prefers sooner appointment. Currently scheduled first available and added to waitlist. Patient's is aware the clinic will contact with sooner availability.Please contact 's contact number. [phone] encounter LxxtQE6939-26-42W26:58:24Telephone encounter NoteTXT1.2.840.166082.1.13.104.2.7. 2.823908|[id number] for patient gdqu91961-7YzcsURHKTHWAKYKXtionmrtk C-CDA narrative [id number] [id number] 3KUVVKZOUJKVXFUVVLHFSNX9819-75-59N5 4:58:241.2.840.725583.1.72.3.15|1.2 .840.643618.1.13.104.2.7.2.727879_2 [id number] Servando Addison [facility] 2023-04-15 05:40:20 4908-55-25S21:40:20F ormatting of this note might be different from the original.Pt given printed and verbal discharge instructions regarding [...] with steady gait, in no apparent distress, 69361-5Oqzpkzthx department AfabSK6344-18-73Z14:41:45[facility] NoteTXT1.2.840.838837.1.13.104.2.7. 2.172872|[id number] for patient ptca14157-8ZkdqZQFGCYZSSMIIsvvwzmab C-CDA narrative text[address] Rk[id number] 5UXHJZEWWHDPAQMKRXGADNI6339-76-18C6 5:41:451.2.840.037216.1.72.3.15|1.2 .840.785551.1.13.104.2.7.2.727879_1 [id number] [facility] 2023-04-15 03:08:52 9030-21-79R93:08:52F ormatting of this note might be different from the original.Pt states " I fell like shit. I can't breathe, I have COPD. I can't stop coughing. My inhaler is not working and neither is my breathing treatments." 47046-7Wkcykjpqg department Triage ktoxNX6017-67-16K34:10:01[facility] department Triage noteTXT1.2.840.282123.1.13.104.2.7. 2.567509|[id number] for patient msnr66735-4Phkvjxzck department NoteLNNARRATIVEFormatted C-CDA narrative textUT[address] Lv[id number] 1XRCGTMVTHCJZOARTRRBCSB6347-83-33O9 3:10:011.2.840.432961.1.72.3.15|1.2 .840.492408.1.13.104.2.7.2.727879_1 [id number] [facility] 2023-04-15 02:55:00 5629-57-68K44:55:00F ormatting of this note is different from the original.[facility] Emergency Department NotePatient Name: Zachary KeatingDate of : 1975 48 year old maleTreatment Room: MN3/KA2Fxvhkca Record Number: [id number] Care Physician: Freya MorenoPatient Escorted by: Self [9]Mode of Arrival: Personal means [1]EMS Treatment Prior to ED Arrival:PUBLIC WELFARE DIRECTOR treatment: Medication (comment)PUBLIC WELFARE DIRECTOR treatment comments: inhaler, z-pack, breathing treatmentTravel and [...] and generalized aches. Pt was evaluated in :[place] X 2 and has work-up including Covid-19 and Influenza that was reportedly negativeHistory provided by: Medical records and patientLanguage banquet coordinator used: NoCoughSeverity: ModerateOnset quality: GradualDuration: 2 weeksTiming: [...] of acute cardiopulmonary disease.Technical Quality: AdequateRL: 109AFC: 44231Hrb of report Lab Results:Lab ResultsCBC WITH DIFF [...] 0.06 0.01 - 0.09 10*3/uLCOMP. METABOLIC PANEL (35279) - AbnormalNA 141 135 - 145 mmol/LK [...] U/LAST(SGOT) 27 13 - 40 U/LeGFR 114.4 mL/min/1.11v8VPLBZDMH I - NormalTROPONIN I 0.006 <=0.034 ng/mLN-TERMINAL [...] nebulizer solutionFirst Provider Eval:ED EventsDate/Time Event User Unretobx17/28/23310 Medical Screening Begins EVA RAMIREZ MD --04/15/23310 [...] follow-upSDb gore, DOSpecialty: IM-PULMONARY DISEASE, IM-CRITICAL CARE MEDICINEZUN[facility] AND [id number] [place] [id number]: [phone] signed by:Eva Ramirez MD04/15/23 0537 10490-7Xqmewtlxr Emergency department BqsmXZ7379-55-49Z66:37:25[facility] NoteTXT1.2.840.281081.1.13.104.2.7. 2.078298|[id number] for patient ikvt73892-9Oagcftykw[address] NoteLNNARRATIVEFormatted C-CDA narrative textUT[address] Ab[id number] 8GOLKQGIQWRJJTJLFBQMEUP8613-67-17K7 5:37:251.2.840.444366.1.72.3.15|1.2 .840.270443.1.13.104.2.7.2.727879_1 [id number] [facility] 2022-11-21 18:11:41 1372-89-37R97:11:41F ormatting of this note might be different from the original.Pt given printed and verbal discharge instructions regarding fall, rib fracture, knee pain, encouraged hydration.2 Prescriptions sent to pharmacy.Discussed ibuprofen and to take with food to avoid GI distress.Discussed Tylenol # 3/[place] side affects and to avoid driving/operating machinery/or [...] leaving via wheelchair, in no apparent distress. 20773-1Jvmlwgooi department TaubWL9084-30-49N71:13:33[facility] department NoteTXT1.2.840.761471.1.13.104.2.7. 2.532654|[id number] for patient [id number] M Herrera RNUT[address] [id number] 8EKEUYDGMWNETAAKTDWNJPQ3492-08-18P2 8:13:331.2.840.906831.1.72.3.15|1.2 .840.568700.1.13.104.2.7.2.727879_1 [id number] Shell Sears RN [facility] 2022-11-21 13:35:53 3627-46-04C33:35:53F ormatting of this note might be different from the original.Patient states: "About 1.5 hours ago I was playing basketball, went up for a rebound. I fell and landed on my hand on my left ribs with some people on top of me. I'm having bad rib pain and shortness of breath. Also my right knee hurts pretty bad" 22807-8Xrlqjeraj department Triage gagmUX0896-90-35K94:36:53[facility] department Triage noteTXT1.2.840.233385.1.13.104.2.7. 2.096169|[id number] for patient cztw60088-3Vwckjeifd department [id number] M Cruz RNUT[address] [id number] 2NKMEDIRYVTOLDPFHTSXUYX9298-51-49P3 3:36:531.2.840.717761.1.72.3.15|1.2 .840.001098.1.13.104.2.7.2.727879_1 [id number] Sowmya Arndt RN [facility] 2022-11-21 13:27:00 4668-24-72N14:27:00F ormatting of this note is different from the original.[facility] Emergency Department NotePatient Name: Zachary Dalton of : 1975 47 year old maleTreatment Room: [address]25[address]87Vsjtrzm Record Number: [id number] Care Physician: Kye Hamilton Escorted by: Family [5]Mode of Arrival: Personal means [1]EMS Treatment Prior to ED Arrival:PUBLIC WELFARE DIRECTOR treatment: None Travel and Exposure Screening:SymptomsDoes patient [...] significant spinal canal stenosis. RL: 6600 AFC: 19468 End of report. THORAX WO CONTRAST Final [...] and comfortable with plan. Procedures: ProceduresMDM:Medical Decision Vsqjef77 yo M presents after fallProblems Addressed:Fall, initial [...] Follow-up:Electronically signed by: Kane Huffman MD11/21/22 1708 57986-6Abmswmueb Emergency department HmtyJW3191-79-79C65:08:54[facility] NoteTXT1.2.840.225367.1.13.104.2.7. 2.020739|[id number] for patient rini49540-5Ajgveknsv department NoteLN[address] BvbqOqoriwwonRdcjeqnrkYMOD553453527 0SAZUFLKSUYKENUUSCUMMCI5882-95-84B5 7:08:541.2.840.040928.1.72.3.15|1.2 .840.804616.1.13.104.2.7.2.727879_1 [id number] [facility]
[2023-10-04 16:02] LABS: Absolute Basophils 0.1 K/uL (0-0.5); Absolute Eosinophils 0.2 K/uL (0-0.5); Absolute Lymphocytes (CBC) 2.3 K/uL (0.7-4.9); Absolute Monocytes 1.2 K/uL (0.1-1.3); Absolute Neutrophil 8.3 K/uL (1.8-8.0); Basophils % 1.2 % (0-1.3); Eosinophils % 1.8 % (0-4.4); Hematocrit 43.4 % (39.6-49.0); Hemoglobin 14.5 g/dL (13.6-17.9); MCH 28.7 pg (27.0-35.0); MCHC 33.5 g/dL (32.0-36.0); MCV 85.8 fL (80-100); MPV 9.1 fL (7.6-11.3); Monocytes % 9.9 % (3.3-12.3); Neutrophils % 68.1 % (41.7-73.7); Nucleated Red Blood Cells % 0.2 % (0-0); Platelets 196 thou/uL (152-406); RBC Red Blood Cell Count 5.06 M/uL (4.33-5.43); Red Cell Distribution Width 13.7 % (12.1-15.2)
[2023-10-04] MEDS ORDERED: NA CHLORIDE 0.9% 1,000 ML ONE (16:59)
[2023-10-04] MEDS ORDERED: ONDANSETRON 4 MG/2 ML VIAL ONE (16:59)
[2023-10-04] MEDS ORDERED: MORPHINE 4 MG/ML SYR ONE (17:10)
[2023-10-04 17:20] LABS: Albumin 3.4 g/dL (3.4-5.0); Albumin/Globulin Ratio 0.8 (1.1-1.8); Anion Gap 7.4 mEq/L (5.0-15.0); Bilirubin Total 0.7 mg/dL (0.2-1.0); Globulin 4.3 g/dL (2.3-3.5); Potassium 4.4 mEq/L (3.5-5.1); Protein, Total 7.7 g/dL (6.4-8.2)
[2023-10-04] MEDS ORDERED: HYDROMORPHONE HCL 1 MG/ML INJ ONE (17:38)
--- NOTE | 2023-10-04 19:15 | RAD REPORT ---
EXAM DESCRIPTION: CT - Abdomen Pelvis W Contrast - 10/04/2023 5:49 pm CLINICAL HISTORY: ABD PAIN COMPARISON: Abdomen Pelvis W Contrast dated 07/04/2023; Abdomen Pelvis W Contrast dated 06/21/2023; Abdomen Pelvis W Contrast dated 05/06/2018; Abdomen Pelvis W Contrast dated 07/05/2016; Chest [place] dated 05/10/2023 TECHNIQUE: Thin cut axial CT imaging of the abdomen and pelvis was performed following intravenous a dministration of iodinated contrast. Multiplanar reformats were generated and reviewed. All CT scans are performed using dose optimization technique as appropriate and may include automated exposure control or mA/KV adjustment according to patient size. FINDINGS: No suspicious findings in the lung bases. The liver, spleen, adrenal glands, and pancreas show no suspicious findings. Gallbladder and biliary tree are also without suspicious finding. Symmetric renal function is seen with no hydronephrosis or suspicious renal mass. No dilated bowel loops. Sequelae of distal partial colectomy with midline pelvic anastomosis. Focal w all thickening and adjacent fat stranding along the proximal descending colon, with adjacent trace fl uid along the paracolic gutter. No free air, free fluid or appreciable fluid collections. Small bilat eral inguinal fat containing hernias. No suspicious mass or bulky lymphadenopathy. The urinary bladde r is without significant finding. No suspicious bony findings. IMPRESSION: Sequelae of uncomplicated acute descending colon diverticulitis.
--- NOTE | 2023-10-04 19:37 | ER ---
Nurse's Notes [facility] [address] Name: Dennis Keating Age: 48 yrs Sex: Male : 1975 Arrival Date: 10/04/2023 Time: 14:49 Bed 15 Private MD: Diagnosis: Diverticulitis of large intestine without perforation or abscess without bleeding Presentation: 10/03 15:00 Chief complaint: Patient states: LLQ pain that began yesterday afternoon. aa5 15:00 Coronavirus screen: diarrhea. Ebola Screen: Patient denies travel to an Ebola-affected [facility] area in the 21 days before illness onset. Initial Sepsis Screen: Does the patient meet any 2 criteria? HR > 90 bpm. Does the patient have a suspected source of infection? No. Patient's initial sepsis screen is negative. Risk Assessment: Do you want to hurt yourself or someone else? Patient reports no desire to harm self or others. Onset of symptoms was September 2023. 15:00 Method Of Arrival: Wheelchair aa5 15:00 Acuity: AMNA 3 aa5 Historical: - Allergies: 15:01 Aspirin; aa5 15:01 Cipro PO; aa5 15:01 Ibuprofen; aa5 15:01 PENICILLINS; aa5 15:01 Toradol; aa5 - PMHx: 15:01 Back pain; Chronic obstructive lung disease; CHRONS; Congestive heart failure; aa5 Diverticulitis; Myocardial infarction; - PSHx: 15:01 Ankle; bowel resection; foot; hand; knee; testicle; aa5 - Immunization history:: Adult Immunizations unknown. - Infectious Disease History:: Denies. - Social history:: Smoking status: Patient reports the use of cigarette tobacco products. - Family history:: not pertinent. - Hospitalizations: : No recent hospitalization is reported. Screenin:23 [facility] ED Fall Risk Assessment (Adult) History of falling in the last 3 months, pc2 including since admission No falls in past 3 months (0 pts). Abuse screen: Denies threats or abuse. Denies injuries from another. Nutritional screening: No deficits noted. Tuberculosis screening: No symptoms or risk factors identified. Assessment: 17:08 General: Appears distressed, uncomfortable, ill, Behavior is calm, cooperative, ll1 appropriate for age. Pain: Complains of pain in abdomen. GI: Reports lower abdominal pain, upper abdominal pain, nausea. 17:26 Reassessment: No changes from previously documented assessment. Patient and/or family ll1 updated on plan of care and expected duration. Pain level reassessed. Patient is alert, oriented x 3, equal unlabored respirations, skin warm/dry/pink. 17:35 Reassessment: Patient appears in no apparent distress at this time. Patient and/or ph family updated on plan of care and expected duration. Pain level reassessed. Patient is alert, oriented x 3, equal unlabored respirations, skin warm/dry/pink. Pt c/o pain, states that previous pain medication did not help, ERP notified, verbal order received from Dr John for 1 mg Dilaudid IVP, see MAR. 19:15 GI: Abd is soft X 4 quads. pc2 19:22 Reassessment: Patient and/or family updated on plan of care and expected duration. Pain pc2 level reassessed. Patient is alert, oriented x 3, equal unlabored respirations, skin warm/dry/pink. Reassessment: Pt reports his pain has been unrelieved with pain medications. MD notified. Pain: Complains of pain in abdomen Pain currently is 10 out of 10 on a pain scale. Also complains of nausea. Respiratory: Airway is patent Respiratory effort is even, unlabored, Respiratory pattern is regular, symmetrical. 20:15 Reassessment: No changes from previously documented assessment. Patient and/or family pc2 updated on plan of care and expected duration. Pain level reassessed. 20:15 GI: pc2 Vital Signs: 15:00 BP 130 / 78; Pulse 95; Resp 22 S; Temp 98.6(O); Pulse Ox 100% on R/A; Weight 165.56 kg aa5 (R); Height 6 ft. 3 in. (R); 19:26 BP 124 / 79; Pulse 87; Resp 18; Pulse Ox 96% on R/A; Pain 10/10; pc2 20:35 BP 128 / 76; Pulse 88; Resp 18; Pulse Ox 97% ; Pain 9/10; pc2 15:00 Body Mass Index 45.62 (165.56 kg, 190.5 cm) aa5 19:26 Pain Scale: Adult pc2 20:35 Pain Scale: Adult pc2 ED Course: 14:52 Patient arrived in ED. im 14:54 Jose John MD is Attending Physician. rn 15:00 Arm band placed on. aa5 15:03 Triage completed. aa5 16:50 Missed attempt(s): 22 gauge in left in right upper arm. Bleeding controlled, band aid ll1 applied, catheter tip intact. 16:52 Inserted saline lock: 22 gauge in right upper arm, using aseptic technique. Blood ll1 collected. 17:22 Patient placed in an exam room, on a stretcher. mb9 17:51 CT Abd/Pelvis - IV Contrast Only In Process Unspecified. EDMS 18:28 Attending Physician role handed off by Jose John MD ec2 18:28 Efrain Da Silva MD is Attending Physician. ec2 19:08 Kirti Robledo, ARAMIS is Primary Nurse. ph 19:23 Report received from ARAMIS Cotto. pc2 19:24 Patient has correct armband on for positive identification. Bed in low position. Call pc2 light in reach. Side rails up X2. Provided Education on: POC and timeframe. Client placed on continuous cardiac and pulse oximetry monitoring. NIBP monitoring applied. Pulse ox on. NIBP on. 20:45 No provider procedures requiring assistance completed. IV discontinued, intact, pc2 bleeding controlled, No redness/swelling at site. Pressure dressing applied. Administered Medications: 17:04 Drug: NS 0.9% IV 1000 ml IV at 1 bolus Per protocol; 1000 mL bolus Route: IV; Rate: 1 ll1 bolus; Site: left upper arm; 19:15 Follow up: Response: No adverse reaction; IV Status: Completed infusion; IV Intake: pc2 1000ml 17:04 Drug: Ondansetron IVP 4 mg IVP once; over 2 minutes Route: IVP; Site: right upper arm; ll1 19:15 Follow up: Response: No adverse reaction pc2 17:14 Drug: morphine IVP or IV 4 mg IVP once over 4 mins {Note: pain 10/10 RASS 0.} Route: ll1 IVP; Infused Over: 4 mins; Site: right upper arm; 20:45 Follow up: Response: No adverse reaction; RASS: Alert and Calm (0) pc2 17:40 Drug: HYDROmorphone IVP 1 mg IVP once Route: IVP; Site: right upper arm; ph 19:15 Follow up: Response: No adverse reaction; RASS: Alert and Calm (0) pc2 20:32 Drug: Cefdinir PO 300 mg PO once Route: PO; pc2 20:45 Follow up: Response: No adverse reaction pc2 20:32 Drug: metroNIDAZOLE PO 500 mg PO once Route: PO; pc2 20:50 Follow up: Response: No adverse reaction pc2 20:32 Drug: Acetaminophen-Codeine PO (300 mg-30 mg) 1 tablet PO once; RASS on ADMIN: Combtv4, pc2 Very Agttd3, Agttd2, Rstlss1, AlertClm0, Drwsy-1, Lt Sdtn-2, Mod Sdtn-3, Dp Sdtn-4, UnArsble-5 Route: PO; 20:36 Follow up: Response: No adverse reaction; RASS: Alert and Calm (0) pc2 Medication: 19:24 VIS not applicable for this client. pc2 Intake: 19:15 IV: 1000ml; Total: 1000ml. pc2 Outcome: 19:36 Discharge ordered by . ec2 20:45 Discharged to home ambulatory, with family, pc2 20:45 Condition: stable 20:45 Discharge instructions given to patient, Instructed on discharge instructions, follow up and referral plans. medication usage, Demonstrated understanding of instructions, follow-up care, medications, Prescriptions given X 3, 21:02 Patient left the ED. pc2 Signatures: Dispatcher [employer] EDMS Jose John MD MD rn Calderon, Audri RN RN aa5 Kirti Robledo RN RN ph Lewis, Lynsay, RN RN ll1 Deneen Shrestha RN RN mb9 Divina Adames Edwin, MD MD ec2 Kaycee cruz, RN RN pc2 Corrections: (The following items were deleted from the chart) 15:03 15:02 Chief complaint: Patient states: LLQ pain that began yesterday afternoon. aa5 aa5 15:06 15:00 Pulse 95bpm; Resp 22bpm; Spontaneous; Pulse Ox 100% RA; aa5 aa5 15:07 15:00 Pulse 95bpm; Resp 22bpm; Spontaneous; Pulse Ox 100% RA; Temp 98.6F Oral; 165.56 aa5 kg Reported; Height 6 ft. 3 in. Reported; BMI: 45.6; aa5 20:59 20:58 Response: No adverse reaction; IV Status: Completed infusion; IV Intake: 1000ml pc2 pc2 21:00 20:59 GI: pc2 pc2 18 06:13 10/03 19:15 GI: pc2 pc2
--- NOTE | 2023-10-04 19:37 | EDPHYS ---
Physician Documentation [facility] Name: Dennis Keating Age: 48 yrs Sex: Male : 1975 Arrival Date: 10/04/2023 Time: 14:49 Bed 15 Private MD: ED Physician Efrain Da Silva HPI: 10/03 15:06 This 48 yrs old Male presents to ER via Wheelchair with complaints of Abdominal Pain, rn Diarrhea. 15:06 The patient presents to the emergency department with abdominal pain. Onset: The rn symptoms/episode began/occurred yesterday. Possible causes: unknown. The symptoms are aggravated by nothing. The symptoms are alleviated by nothing. Associated signs and symptoms: Pertinent positives: abdominal pain, constipation, Pertinent negatives: fever, GI bleeding. Severity of symptoms: At their worst the symptoms were moderate in the emergency department the symptoms are unchanged. The patient has experienced similar episodes in the past. Patient reports left-sided lower abdominal pain that began yesterday. Associated with constipation. Took magnesium citrate at home with resultant diarrhea but abdominal pain did not resolve. Reports history of diverticulitis in the past but had 12 inch resection. No blood in stool. No vomiting. No fever. No sick contacts.. Historical: - Allergies: 15:01 Aspirin; aa5 15:01 Cipro PO; aa5 15:01 Ibuprofen; aa5 15:01 PENICILLINS; aa5 15:01 Toradol; aa5 - PMHx: 15:01 Back pain; Chronic obstructive lung disease; CHRONS; Congestive heart failure; aa5 Diverticulitis; Myocardial infarction; - PSHx: 15:01 Ankle; bowel resection; foot; hand; knee; testicle; aa5 - Immunization history:: Adult Immunizations unknown. - Infectious Disease History:: Denies. - Social history:: Smoking status: Patient reports the use of cigarette tobacco products. - Family history:: not pertinent. - Hospitalizations: : No recent hospitalization is reported. ROS: 15:06 Constitutional: Negative for fever, chills, and weight loss, Neck: Negative for injury, rn pain, and swelling, Cardiovascular: Negative for chest pain, palpitations, and edema, Respiratory: Negative for shortness of breath, cough, wheezing, and pleuritic chest pain, Abdomen/GI: Negative for nausea, vomiting Back: Negative for injury and pain, MS/Extremity: Negative for injury and deformity, Skin: Negative for injury, rash, and discoloration, Neuro: + generalzied weakness Exam: 15:06 Constitutional: This is a well developed, well nourished patient who is awake, alert, rn appears uncomfortable Head/Face: Normocephalic, atraumatic. Cardiovascular: Regular rate and rhythm. No pulse deficits. Respiratory: No increased work of breathing, no retractions or nasal flaring. Abdomen/GI: Soft, tender left-sided abdomen. No rebound MS/ Extremity: Pulses equal, no cyanosis. Neuro: Awake and alert, GCS 15 Vital Signs: 15:00 BP 130 / 78; Pulse 95; Resp 22 S; Temp 98.6(O); Pulse Ox 100% on R/A; Weight 165.56 kg aa5 (R); Height 6 ft. 3 in. (R); 19:26 BP 124 / 79; Pulse 87; Resp 18; Pulse Ox 96% on R/A; Pain 10/10; pc2 20:35 BP 128 / 76; Pulse 88; Resp 18; Pulse Ox 97% ; Pain 9/10; pc2 15:00 Body Mass Index 45.62 (165.56 kg, 190.5 cm) aa5 19:26 Pain Scale: Adult pc2 20:35 Pain Scale: Adult pc2 MDM: 14:54 Patient medically screened. rn 18:28 Data reviewed: vital signs. ED course: Patient signed out to her previous physician, in ec2 brief patient arrives today for abdominal pain along with diarrhea. Plan is to follow-up lab work and CT imaging. . 19:35 ED course: CT abdomen pelvis shows uncomplicated acute diverticulitis. Discussed ec2 inpatient hospitalization versus outpatient management. Will discharge home with antibiotics and pain medication. Return precautions given. . 10/03 14:55 Order name: CBC with Diff; Complete Time: 17:05 rn 10/03 14:55 Order name: CMP; Complete Time: 17:21 rn 10/03 14:55 Order name: Lipase; Complete Time: 17:21 rn 10/03 14:55 Order name: CT Abd/Pelvis - IV Contrast Only; Complete Time: 19:26 rn 10/03 14:55 Order name: IV Saline Lock; Complete Time: 16:54 rn 10/03 14:55 Order name: Labs collected and sent; Complete Time: 16:04 rn 10/03 16:09 Order name: Labs - recollect needed: recollect green top; Complete Time: 16:54 bd Administered Medications: 17:04 Drug: NS 0.9% IV 1000 ml IV at 1 bolus Per protocol; 1000 mL bolus Route: IV; Rate: 1 ll1 bolus; Site: left upper arm; 19:15 Follow up: Response: No adverse reaction; IV Status: Completed infusion; IV Intake: pc2 1000ml 17:04 Drug: Ondansetron IVP 4 mg IVP once; over 2 minutes Route: IVP; Site: right upper arm; ll1 19:15 Follow up: Response: No adverse reaction pc2 17:14 Drug: morphine IVP or IV 4 mg IVP once over 4 mins {Note: pain 10/10 RASS 0.} Route: ll1 IVP; Infused Over: 4 mins; Site: right upper arm; 20:45 Follow up: Response: No adverse reaction; RASS: Alert and Calm (0) pc2 17:40 Drug: HYDROmorphone IVP 1 mg IVP once Route: IVP; Site: right upper arm; ph 19:15 Follow up: Response: No adverse reaction; RASS: Alert and Calm (0) pc2 20:32 Drug: Cefdinir PO 300 mg PO once Route: PO; pc2 20:45 Follow up: Response: No adverse reaction pc2 20:32 Drug: metroNIDAZOLE PO 500 mg PO once Route: PO; pc2 20:50 Follow up: Response: No adverse reaction pc2 20:32 Drug: Acetaminophen-Codeine PO (300 mg-30 mg) 1 tablet PO once; RASS on ADMIN: Combtv4, pc2 Very Agttd3, Agttd2, Rstlss1, AlertClm0, Drwsy-1, Lt Sdtn-2, Mod Sdtn-3, Dp Sdtn-4, UnArsble-5 Route: PO; 20:36 Follow up: Response: No adverse reaction; RASS: Alert and Calm (0) pc2 Disposition Summary: 10/04/23 19:36 Discharge Ordered Notes: Location: Home ec2 Condition: Stable ec2 Diagnosis - Diverticulitis of large intestine without perforation or abscess without bleeding ec2 Followup: ec2 - With: Private Physician - When: - Reason: Re-evaluation by your physician Discharge Instructions: - Discharge Summary Sheet ec2 - Diverticulitis, Mxzx-kn-Yybk ec2 Forms: - Medication Reconciliation Form ec2 - Antibiotic Education ec2 - Prescription Opioid Use ec2 - Patient Portal Instructions ec2 - Leadership Thank You Letter ec2 Prescriptions: - acetaminophen-codeine 300-15 mg Oral tablet - take 2 tablet ORAL route every 8 hours; 20 tablet; Refills: 0, Product ec2 Selection Permitted - cefdinir 300 mg Oral capsule - take 1 capsule ORAL route 2 times per day; 14 capsule; Refills: 0, Product ec2 Selection Permitted - Metronidazole 500 mg Oral tablet - take 1 tablet ORAL route every 8 hours; 21 tablet; Refills: 0, Product ec2 Selection Permitted Signatures: Dispatcher [employer] EDMS Gertrudis Horne Roman, MD MD rn Calderon, Audri RN RN aa5 Kirti Robledo RN RN Idalia Weaver RN RN ll1 Efrain Da Silva MD MD ec2 Kaycee cruz, RN RN pc2
[2023-10-04] MEDS ORDERED: CEFDINIR 300 MG CAP PO ONE (20:28)
[2023-10-04] MEDS ORDERED: metroNIDAZOLE 500 MG TABLET ONE (20:28)
[2023-10-04] MEDS ORDERED: CODEINE 30MG/APAP 300MG TAB ONE (20:28)
[2023-10-04 21:28] VITALS: BP 128/76; TEMP 98.6; O2SAT 97
== END 2023-10-04 21:02 | disposition home or self-care (01) ==
LOC: ER 14:49
DX: K57.32 Diverticulitis of large intestine without perforation or abscess without bleeding (principal)
CPT/HCPCS: 96361; 85025; 36415; 83690; 80053; 74177; 96375; 96374; 99284; Q9967; J1170; J2405; J7030

== ENCOUNTER 2023-11-08 23:19 | Emergency (ER) | payer OTHER ==
--- OUTSIDE RECORDS SUMMARY | 2023-11-08 23:24 | XMS REPORT | Continuity of Care Document ---
Author Name Unknown Address [address] [place] [address] [facility] thconnect Address [address] [facility] [address] [place] [address] Care Team Providers Care Lead Investigator Name Role Phone Freya Moreno Primary Care Physician [phone] SUSSY FROST Attending Clinician SUSSY Kumar Attending Clinician Sussy Kumar MD Attending Clinician EVA RAMIREZ Attending Clinician Unavailable Eva Ramirez MD Attending Clinician [phone] Doctor Unassigned, [place] Attending Clinician U Kane Rabago MD Attending Clinician [phone] KANE HUFFMAN Attending Clinician UnavailALBER De Los Santos Attending Clinician ANA Lord Attending Clinician Unavailable LESTER ARTEAGA Attending Clinician Unavailasa GLOVER Attending Clinician Unavailable Werner Zavaleta Attending Clinician [phone] EVA RAMIREZ Admitting Clinician Unavailable KANE HUFFMAN Admitting Clinician Gerhard GLOVER Admitting Clinician Unavailable Payers Payer Name Policy Type Policy Number Effective Date Expirati on Date Source ANNETTE OLSON [facility] [id number] 00:00:00 [employer] MCARE ADV CHOICE PPO [id number] 2021 00:00:00 [facility] (MEDICARE REPLACEMENT/ADVANTA GE - PPO) [id number] Problems Condition Name Condition Details Condition Category Status Onset Date Resolution Date Last Treatment Date Treating Clinician Comments Source Bipolar disorder Bipolar Disorder Problem Active 05-08 00:00: 00 [facility] Depressive disorder Depressive Disorder Problem Active 05-08 00:00: 00 [facility] Attention deficit hyperactiv ity disorder Attention Deficit Hyperactiv ity Disorder Problem Active 05-08 00:00: 00 [facility] Hypertensi ve disorder Hypertensi ve Disorder Problem Active 05-08 00:00: 00 [place] [facility] Chronic obstructiv e lung disease Chronic Obstructiv e Lung Disease Problem Active 05-08 00:00: 00 [facility] Crohn's disease Crohn's Disease Problem Active 05-08 00:00: 00 [place] [facility] Diverticul itis Diverticul itis Problem [facility] Osteoarthr itis Osteoarthr itis Problem Active 05[facility]08 [facility] History of intravenou s drug abuse History of Intravenou s Drug Abuse Problem Active 05-08 00:00: 00 [facility] No known active problems No known active problems Disease [facility] Allergies, Adverse Reactions, Alerts Allergy Name Allergy Type Status Severity Reaction(s) Onset Date Inactive Date Treating Clinician Comments Source Ciproflo xacin Propensi ty to adverse reaction s Active Other - See comments 07-24 00:00: 00 [facility] CIPROFLO XACIN DRUG INGREDI Active Other-Cmnt 07-24 00:00: 00 [facility] Aspirin Propensi ty to adverse reaction s Active Rash 2014-04 00:00: 00 [facility] Ibuprofe n Propensi ty to adverse reaction s Active Rash 2014-04 00:00: 00 [facility] Penicill in Propensi ty to adverse reaction s Active Unknown - See comments 2014-04 00:00: 00 [facility] Ketorola c Propensi ty to adverse reaction s Active Unknown - See comments 2014-04 00:00: 00 [facility] ASPIRIN DRUG INGREDI Active Rash 2014-04 00:00: 00 [facility] IBUPROFE N DRUG INGREDI Active Rash 2014-04 0 00:00: 00 [facility] PENICILL IN DRUG INGREDI Active Unknown-Cmnt 2014-04 0 00:00: 00 [facility] KETOROLA C DRUG INGREDI Active Unknown-Cmnt 2014-04 0 00:00: 00 [facility] TORADOL Allergy to substanc e Active Nausea [facility] Aspirin Allergy to substanc e Active Nausea [facility] Ibuprofe n Allergy to substanc e Active Nausea [facility] PENICILL INS Allergy to substanc e Active Hives [facility] Social History Social Habit Start Date Stop Date Quantity Comments Source Gender identity [facility] Exposure to SARS-CoV-2 (event) Not sure [facility] History of tobacco use Cigarette Smoker [facility] History of Social function 2018-10-27 00:00:00 2018-10-27 00:00:00 [facility] Cigarette pack-years 2018-07-11 00:00:00 2018-07-11 00:00:00 [facility] Tobacco use and exposure 2018-07-11 00:00:00 2018-07-11 00:00:00 User of smokeless tobacco [facility] Cigarettes smoked current (pack per day) - Reported 2018-07-11 00:00:00 2018-07-11 00:00:00 [facility] Sex Assigned At 1975 00:00:1975 00:00:00 [facility] Smoking Status Start Date Stop Date Source Smokes tobacco daily 2018-07-11 00:00:00 [facility] Medications Ordered Medication Name Filled Medication Name Start Date Stop Date Current Medication? Ordering Clinician Indication Dosage Frequency Signature (SIG) Comments Components Source HYDROcodone -acetaminop hen (NORCO) 10-325 mg tablet 1 tablet 2022-04 12:15: 00 04-15 11:15 :00 No 1{tbl} 1 tablet, Oral, ONCE NOW, 1 dose, On Yolanda 04/15/23 at 0615, Routine [facility] magnesium sulfate in water 2 gram/50 mL (4 %) infusion 2 g 2022-04 12:00: 00 04-15 23:59 :00 No 2g 2 g, IV Piggyback, Administer over 60 Minutes, ONCE, 1 dose, On Yolanda 04/15/23 at 0600, Routine [facility] ipratropium -albuteroL (DUONEB) 0.5 mg-3 mg(2.5 mg base)/3 mL nebulizer solution 3 mL 2022-04 11:15: 00 Yes 3mL 3 mL, Inhalation , QID, First dose on Yolanda 04/15/23 at 0515, Until Discontinu ed, Routine [facility] ipratropium -albuteroL (DUONEB) 0.5 mg-3 mg(2.5 mg base)/3 mL nebulizer solution 3 mL 2022-04 10:30: 00 04-15 09:40 :00 No 3mL 3 mL, Inhalation , ONCE, 1 dose, On Yolanda 04/15/23 at 0430, Routine [facility] methylpredn isolone sod succ (SOLU-MEDRO L) injection 125 mg 2022-04 10:30: 00 04-15 09:34 :00 No 125mg 125 mg, Intravenou s, ONCE, 1 dose, On Yolanda 04/15/23 at 0430, 2 mL [facility] cyclobenzap rine 10 mg tablet 2022-04 05:28: 16 04-15 00:00 :00 No cyclobenza yann 10 mg tablet Take 1 tablet twice a day by oral route as directed for 28 days. [facility] albuterol 90 mcg/actuati on inhaler 2022-04 00:00: 00 Yes [id number] 2{puff} Inhale 2 Puffs every 4 (four) hours as needed for Wheezing or Shortness of Breath. [facility] predniSONE 20 mg tablet 2022-04 00:00: 00 Yes [id number] TAKE ONE TABLET ORALLY TWICE A DAY FOR FIVE DAYS [facility] albuterol 2.5 mg /3 mL (0.083 %) nebulizer solution 2022-04 00:00: 00 Yes [id number] 2.5mg Inhale 3 mL every 6 (six) hours as needed for Wheezing, Shortness of Breath, Bronchospa sm or Chest tightness. May also nebulize one extra every 6 hours. [facility] codeine-gua ifenesin 10-100 mg/5 mL oral solution 2022-04 00:00: 00 04-23 05:59 :00 No 10mL Take 10 mL by mouth every 6 (six) hours as needed for Cough for up to 7 days. Indication s: COUGH [facility] methocarbam oL (ROBAXIN) injection 1,000 mg 11-22 03:00: 00 Yes 1000mg 1,000 mg, Intravenou s, Q8H, First dose on 11/21/22 at 2200, Until Discontinu ed, Routine [facility] HYDROmorpho ne (DILAUDID) injection 1 mg 11-21 20:45: 00 11-21 22:14 :00 No 1mg 1 mg, Slow IV Push, ONCE, 1 dose, On 11/21/22 at 1545, SAM
Us e approved by (Faculty): ADC PROVIDER [facility] acetaminoph en ADULT (OFIRMEV) injection 1,000 mg 11-21 20:00: 00 11-21 20:02 :00 No 1000mg 1,000 mg, IV Infusion, at 400 mL/hr Administer over 15 Minutes, ONCE, 1 dose, On 11/21/22 at 1500, Routine
Indicatio n: Non-periop erative Patient
Approved by: Per Policy (NPO Status) [facility] morpHINE (4 mg/mL) injection 4 mg 11-21 20:00: 00 11-21 19:44 :00 No 4mg 4 mg, Slow IV Push, ONCE, 1 dose, On 11/21/22 at 1500, SAM [facility] cyclobenzap rine 10 mg tablet 11-21 17:05: 02 Yes cyclobenza yann 10 mg tablet Take 1 tablet twice a day by oral route as directed for 28 days. [facility] acetamino en-codeine 300-30 mg tablet 11-21 00:00: 00 Yes [id number] 1{tbl} Take 1 tablet by mouth every 6 (six) hours as needed for Pain (scale 4-6) for up to 15 doses. Indication s: acute pain [facility] cyclobenzap rine 10 mg tablet 11-21 00:00: 11-27 04:59 :00 No [id number] 10mg Take 1 tablet by mouth in the morning and 1 tablet at noon and 1 tablet in the evening. Do all this for 5 days. [facility] clindamycin in 5 % dextrose (CLEOCIN) 900 mg/50 mL IV piggyback RTU 900 mg 2020-04 06:15: 00 02-13 05:51 :00 No 900mg 900 mg, IV Piggyback, ONCE, 1 dose, On Yolanda 10/28/21 at 0115, Administer over 30 Minutes, 50 mL
Reas on for Anti-Infec tive: Documented Infection< br>Documen sangeetha Infection Site: Skin / Soft Tissue
Duration of Therapy: Other (see Comments)< br>Restric sangeetha use approved by: ADC PROVIDER [facility] FENTanyl PF (SUBLIMAZE (PF)) injection 50 mcg 2020-04 05:15: 00 02-13 04:10 :00 No 50ug 50 mcg, Slow IV Push, ONCE, 1 dose, On Yolanda 02/13/21 at 0015, Routine [facility] FENTanyl PF (SUBLIMAZE (PF)) injection 50 mcg 2020-04 04:39: 00 02-13 04:45 :00 No 50ug 50 mcg, Slow IV Push, ONCE, 1 dose, On Wed02/12/21 at 2345, STAT [facility] gabapentin 300 mg capsule 2020-04 00:00: 00 04-15 00:00 :00 No [id number] 300mg Take 1 capsule by mouth 3 (three) times daily. [facility] traMADOL (ULTRAM) 50 mg tablet 07-24 00:00: 00 Yes [id number] 50mg Take 1 tablet by mouth every 6 (six) hours as needed for Pain (scale 4-6). [facility] proMETHazin e 25 mg tablet 07-24 00:00: 00 04-15 00:00 :00 No [id number] 25mg Take 1 tablet by mouth every 6 (six) hours as needed for Nausea and Vomiting (N/V). [facility] meloxicam 7.5 mg tablet 07-11 09:32: 26 Yes meloxicam 7.5 mg tablet [facility] ketorolac 10 mg tablet 07-11 09:32: 26 Yes 10mg Take 10 mg by mouth. [facility] budesonide- formoterol 160-4.5 mcg/actuati on inhaler 07-11 09:32: 26 Yes Symbicort 160 mcg-4.5 mcg/actuat ion HFA aerosol inhaler [facility] cyclobenzap rine 10 mg tablet 07-11 09:32: 26 Yes cyclobenza yann 10 mg tablet Take 1 tablet twice a day by oral route as directed for 28 days. [facility] HYDROcodone -acetaminop hen (NORCO) 10-325 mg tablet 07-11 09:22: 33 Yes 2{tbl} Take 2 Tabs by mouth daily. [facility] albuterol 90 mcg/actuati on inhaler 07-11 00:00: 00 Yes [id number] 2{puff} Inhale 2 Puffs every 6 (six) hours as needed for Wheezing or Shortness of Breath. [facility] CELECOXIB (CELEBREX ORAL) 2014-04 16:33: 56 Yes Take by mouth. [facility] alprazolam 1 mg tablet TAKE ONE (1) TABLET(S) BY MOUTH ONCE A DAY NEEDED. alprazolam 1 mg tablet TAKE ONE (1) TABLET(S) BY MOUTH ONCE A DAY NEEDED. No alprazolam 1 mg tablet TAKE ONE (1) TABLET(S) BY MOUTH ONCE A DAY NEEDED. [facility] clindamycin HCl 300 mg capsule TAKE 1 CAPSULE BY MOUTH FOUR TIMES DAILY clindamycin HCl 300 mg capsule TAKE 1 CAPSULE BY MOUTH FOUR TIMES DAILY No clindamyci n HCl 300 mg capsule TAKE 1 CAPSULE BY MOUTH FOUR TIMES DAILY [facility] dextroamphe tamine-amph etamine 20 mg tablet TAKE ONE (1) TABLET(S) BY MOUTH EVERY MORNING. dextroamphe tamine-amph etamine 20 mg tablet TAKE ONE (1) TABLET(S) BY MOUTH EVERY MORNING. No dextroamph etamine-am phetamine 20 mg tablet TAKE ONE (1) TABLET(S) BY MOUTH EVERY MORNING. [facility] Vital Signs Vital Name Observation Time Observation Value Comments S ource Heart rate 2023-04-15 11:17:00 94 /min [facility] Body temperature 2023-04-15 11:17:00 36.78 Char [facility] Respiratory rate 2023-04-15 11:17:00 18 /min [facility] Oxygen saturation in Arterial blood by Pulse oximetry 2023-04-15 11:17:00 97 /min [facility] Systolic blood pressure 2023-04-15 11:07:00 130 mm[Hg] [facility] Diastolic blood pressure 2023-04-15 11:07:00 118 mm[Hg] [facility] Body height 2023-04-15 09:11:00 190.5 cm [facility] Body weight 2023-04-15 09:11:00 149.687 kg [facility] BMI 2023-04-15 09:11:00 41.25 kg/m2 [facility] Systolic blood pressure 2022-11-21 22:14:00 122 mm[Hg] [facility] Diastolic blood pressure 2022-11-21 22:14:00 82 mm[Hg] [facility] Heart rate 2022-11-21 22:14:00 76 /min [facility] Respiratory rate 2022-11-21 22:14:00 16 /min [facility] Oxygen saturation in Arterial blood by Pulse oximetry 2022-11-21 22:14:00 96 /min [facility] Body temperature 2022-11-21 18:37:00 36.83 Char [facility] Body height 2022-11-21 18:37:00 190.5 cm [facility] Body weight 2022-11-21 18:37:00 154.223 kg [facility] BMI 2022-11-21 18:37:00 42.50 kg/m2 [facility] BP Diastolic 2021-05-08 00:00:00 82 mm[Hg] [facility] Height 2021-05-08 00:00:00 74 [in_i] [facility] BMI (Body Mass Index) 2021-05-08 00:00:00 41.1 kg/m2 [facility] BP Systolic 2021-05-08 00:00:00 124 mm[Hg] [facility] Body Weight 2021-05-08 00:00:00 5120 [oz_av] [facility] Systolic blood pressure 2021-02-13 05:30:00 115 mm[Hg] [facility] Diastolic blood pressure 2021-02-13 05:30:00 83 mm[Hg] [facility] Heart rate 2021-02-13 05:30:00 78 /min [facility] Respiratory rate 2021-02-13 05:30:00 19 /min [facility] Oxygen saturation in Arterial blood by Pulse oximetry 2021-02-13 05:30:00 97 /min [facility] Body temperature 2021-02-13 03:30:00 36.94 Char [facility] Body height 2021-02-13 03:30:00 188 cm [facility] Body weight 2021-02-13 03:30:00 137.939 kg [facility] BMI 2021-02-13 03:30:00 39.04 kg/m2 [facility] Procedures Procedure Date / Time Performed Performing Clinicia n Source XR CHEST 1 VW 2023-04-15 09:40:04 Eva Ramirez [facility] TROPONIN I 2023-04-15 09:32:00 Eva Ramirez [facility] COMP. METABOLIC PANEL ([id number]) 2023-04-15 09:32:00 Eva Ramirez [facility] CBC WITH DIFF 2023-04-15 09:32:00 Eva Ramirez [facility] N-TERMINAL PRO-BNP 2023-04-15 09:32:00 Eva Ramirez [facility] NOTICE OF PRIVACY PRACTICES 2023-04-15 08:54:44 Doctor Unassigned, [place] [facility] CONSENT/REFUSAL FOR DIAGNOSIS AND TREATMENT 2023-04-15 08:54:28 Doctor Unassigned, [place] [facility] CT LUMBAR SPINE WO CONTRAST 2022-11-21 20:32:53 Kane Huffman [facility] CT THORAX WO CONTRAST 2022-11-21 20:32:53 Chaitanya Huffman [facility] CONSENT/REFUSAL FOR DIAGNOSIS AND TREATMENT 2022-11-21 18:27:20 Doctor Unassigned, [place] [facility] URINALYSIS 2021-02-13 04:20:00 Eva Ramirez [facility] BASIC METABOLIC PANEL (NA, K, CL, CO2, GLUCOSE, BUN, CREATININE, CA) 2021-02-13 04:08:00 Eva Ramirez [facility] CBC WITH DIFF 2021-02-13 04:08:00 Eva Ramirez [facility] NOTICE OF PRIVACY PRACTICES 2021-02-13 03:11:24 Doctor Unassigned, [place] [facility] CONSENT/REFUSAL FOR DIAGNOSIS AND TREATMENT 2021-02-13 03:10:40 Doctor Unassigned, [place] [facility] Procedure on Hand [facility] Repair of Testis [facility] Repair of Ankle [facility] Knee Surgery [facility] Encounters Start Date/Time End Date/Time Encounter Type Admission Type Attending Clinicians Care Facility Care Department Encounter ID Source 2023-06-23 10:00:00 2023-06-23 10:00:00 Outpatient R SUSSY FROST STRAHIL [facility] [id number] [facility] 2023-05-22 00:00:00 2023-05-22 00:00:00 Telephone Sussy Frost [facility]ESS[facility] .[id number] [facility] 2023-04-15 03:08:00 2023-04-15 05:41:00 Emergency X EVA RAMIREZ [facility] [id number] [facility] 2023-04-15 03:08:00 2023-04-15 05:41:00 Emergency Eva Ramirez [facility] .840.114 [id number] [id number] [id number] [facility] 2023-04-15 00:00:00 2023-04-15 00:00:00 Orders Only Doctor Unassigned, [place] [facility] [id number] [id number] [id number] [id number] [facility] 2022-11-21 13:42:00 2022-11-21 17:40:00 Emergency Kane Huffman [facility] 1..840.114 350.1.13.10 [id number] [id number] [facility] 2022-11-21 13:42:00 2022-11-21 17:40:00 Emergency X DK KANE [facility] [id number] [facility] 2022-01-07 14:00:00 2022-01-07 14:00:00 Outpatient R ALBER REID [facility] [id number] [facility] 2022-01-05 10:00:00 2022-01-05 10:00:00 Outpatient ANA BRAND [facility] [id number] [facility] 2021-07-30 15:00:00 2021-07-30 15:00:00 Outpatient R LESTER ARTEAGA [facility] [id number] [facility] 2021-05-12 08:40:00 2021-05-12 08:40:00 Outpatient ERICKSON_R [facility] [id number] [facility] 2021-05-09 09:40:00 2021-05-09 09:40:00 Outpatient ERICKSON[facility]R [facility] [id number] [facility] 2021-05-08 06:02:00 2021-05-08 06:02:00 Outpatient ERICKSON[facility]R [facility] [id number] [facility] 2021-05-08 00:00:00 2021-05-08 00:00:00 Werner Zavaleta, DO: [address], [address], [place] [address] , Ph. [phone] [place] [address] [place] [facility], DR. ZAVALETA [id number] [facility] 2021-05-08 00:00:00 2021-05-08 00:00:00 Outpatient Werner Zavaleta [facility] [id number] 2021-02-12 22:35:00 2021-02-13 01:24:00 Emergency Eva Ramirez S [facility] [id number] [id number] [id number] [id number] [facility] 2021-02-12 22:35:00 2021-02-13 01:24:00 Emergency X EVA RAMIREZ [facility] [id number] [facility] 2021-02-12 00:00:00 2021-02-12 00:00:00 Orders Only Doctor Unassigned, [place] [facility] [id number] [id number] [id number] [id number] [facility] Results Test Description Test Time Test Comments Results Result Co mments Source [id number] 10:25:15* Test Item Value Reference Range Interpretation Comme nts TROPONIN I (test code = 8095459246) 0.006 ng/mL <=0.034 HUGH (test code = [...] of biotin. Lab Interpretation (test code = 17360-8) Normal [facility] [id number] 10:22:54* Test Item Value Reference Range Interpretation Comme nts NT-proBNP (test code = 64123-4) 32 pg/mL <=125 Lab Interpretation (test cod e = 84691-6) Normal [facility] 10:13:53* Test Item Value Reference Range Interpretation Comme nts NA (test code = 0716617482) 141 mmol/L 135-145 K (test code = 2639975943) 3.9 mmol/L 3.5-5.0 CL (test code = 8110725069) 109 mmol/L 98-108 H CO2 TOTAL (test code = 1291851044) 25 mmol/L 23-31 AGAP (test code = 7745281759) 7 2-16 BUN (test code = 2069993850) 23 mg/dL 7-23 GLUCOSE (test code = 4672658612) 155 mg/dL 70-110 H CREATININE (test code = 4530625326) 0.70 mg/dL 0.60-1.25 TOTAL BILI (test code = 8784376230) 0.4 mg/dL 0.1-1.1 CALCIUM (test code = 8466450394) 8.8 mg/dL 8.6-10.6 T PROTEIN (test code = 0527666205) 6.8 g/dL 6.3-8.2 ALBUMIN (test code = 5398959806) 3.7 g/dL 3.5-5.0 ALK PHOS (test code = 1455357864) 58 U/L 34-122 ALTv (test code = 1742-6) 32 U/L 5-50 AST(SGOT) (test code = 5962575312) 27 U/L 13-40 eGFR (test code = 82806-7) 114.4 mL/min/1.73m2 CKD-EPI eGFR (2020). Assuming creatinine has been stable day-to-day for at least three months, the eGFR indicates Category G1 (>= 90 mL/min/1.73 m2) Lab Interpretation (test code = 91680-5) Abnormal [facility] 1 [id number] 09:50:51Examination: Chest one view (portable frontal) Ordering Physician: POLLY RAMIREZ Date: 04/15/2023 3:30 AM History: ? STEMI ? Comparison: None available Findings: AP chest, 2 images submitted for review. Pulmonary vascularity appears normal. The lungs are clear. There is nosignificant pleural effusion evident. There is no significant pneumothoraxevident. Heart size is normal.[facility] (NA, K, CL, CO2, GLUCOSE, BUN, CREATININE, CA)2021-02-13 04:53:21* Test Item Value Reference Range Interpretation Comme nts NA (test code = 4541051252) 137 mmol/L 135-145 K (test code = 3868110522) 3.8 mmol/L 3.5-5.0 CL (test code = 6033311343) 107 mmol/L 98-108 CO2 TOTAL (test code = 8765484964) 27 mmol/L 23-31 AGAP (test code = 8414473849) 2-16 BUN (test code = 6005637191) 15 mg/dL 7-23 GLUCOSE (test code = 3787981700) 133 mg/dL 70-110 H CREATININE (test code = 0038526630) 1.07 mg/dL 0.60-1.25 CALCIUM (test code = 5133624594) 8.8 mg/dL 8.6-10.6 eGFR (test code = 7871013624) mL/min/1.73m2 HUGH (test code = HUGH) Association [...] imaging tests). Lab Interpretation (test code = 79413-3) Abnormal [facility] WITH [id number] 04:33:05* Test Item Value Reference Range Interpretation Comme nts WBC (test code = 6690-2) See_Comment [LEPOW] The system which generated this result transmitted reference range: 4.20 - 10.70 10*3/?L. The reference range was not used to interpret this result as normal/abnormal. RBC (test code = 789-8) See_Comment [LEPOW] The system which generated this result transmitted [...] 33.7 g/dL 31.2-35.0 RDW-SD (test code = 04441-5) 39.7 fL 38.5-51.6 RDW-CV (test code = 788-0) 12.9 % 12.1-15.4 PLT (test code = 777-3) See_Comment [Automated messa ge] The system which generated this result transmitted reference range: 150 - 328 10*3/?L. The reference range was not used to interpret this result as normal/abnormal. MPV (test code = 07962-1) 10.0 fL 9.8-13.0 NRBC/100 WBC (test code = 0964107171) See_Comment [Automated me ssage] The system which generated this result transmitted reference range: 0.0 - 10.0 /100 WBCs. The reference range was not used to interpret this result as normal/abnormal. NRBC x10^3 (test code = 1253504999) <0.01 See_Comment [Automated me ssage] The system which generated this result transmitted reference range: 10*3/?L. The reference range was not used to interpret this result as normal/abnormal. GRAN MAT (NEUT) % (test code = 770-8) 49.2 % IMM GRAN % (test code = 8906600595) 0.50 % LYMPH % (test code = 736-9) 37.3 % MONO % (test code = 5905-5) 9.2 % EOS % (test code = 713-8) 2.8 % BASO % (test code = 706-2) 1.0 % GRAN MAT x10^3(ANC) (test code = 3940502832) 3.75 10*3/uL 1.99-6.95 IMM GRAN x10^3 (test code = 9321483891) 0.04 10*3/uL 0.00-0.06 LYMPH x10^3 (test code = 731-0) 2.84 10*3/uL 1.09-3.23 MONO x10^3 (test code = 742-7) 0.70 10*3/uL 0.36-1.02 EOS x10^3 (test code = 711-2) 0.21 10*3/uL 0.06-0.53 BASO x10^3 (test code = 704-7) 0.08 10*3/uL 0.01-0.09 [facility] Notes Date/Time Note Provider Source 2023-05-24 12:13:18 9192-18-27V79:13:18F ormatting of this note might be different from the original.Contacted patients spouse and offered a sooner appointment. 28564-8Ruxitgakb encounter ZomhUK9914-02-07Z17:14:10Telephone encounter NoteTXT1.2.840.884881.1.13.104.2.7. 2.688163|[id number] for patient lyvc60585-1LbadTRPIQNOAWCYXnvjxetsq C-CDA narrative [id number] [id number] 3MXADNQHOTAQQGXMUFPMQYG6632-31-16O4 2:14:101.2.840.222106.1.72.3.15|1.2 .840.547731.1.13.104.2.7.2.727879_2 [id number] Rosalinda Portillo [facility] 2023-05-22 14:56:15 9793-44-86H13:56:15F ormatting of this note might be different from the original.Zachary Keating is a 48 year old malePatient prefers sooner appointment. Currently scheduled first available and added to waitlist. Patient's is aware the clinic will contact with sooner availability.Please contact 's contact number. [phone] encounter NmaiYY1418-41-94R80:58:24Telephone encounter NoteTXT1.2.840.053742.1.13.104.2.7. 2.761184|[id number] for patient eeel07793-7SjpwMSDQFEJUNSLNokyiudjz C-CDA narrative [id number] [address][id number] 9SLRNULTQHLKICPYNBXIFZP4341-82-90G9 4:58:241.2.840.079966.1.72.3.15|1.2 .840.711874.1.13.104.2.7.2.727879_2 [id number] Servando Addison [facility] 2023-04-15 05:40:20 6219-71-27X07:40:20F ormatting of this note might be different [...] with steady gait, in no apparent distress, 75195-9Avrszzltx department EqccTZ7979-12-55E71:41:45Emergen department NoteTXT1.2.840.908922.1.13.104.2.7. 2.125182|[id number] for patient utan08149-3PmhlQVTDWIAWLQTEerlkwsbl C-CDA narrative text[address] Ie[id number] 2XOJCBVCOAQXIRSIDRLFIBH7741-46-09D6 5:41:451.2.840.635039.1.72.3.15|1.2 .840.221377.1.13.104.2.7.2.727879_1 [id number] [facility] 2023-04-15 03:08:52 2992-92-57G55:08:52F ormatting of this note might be different from the original.Pt states " I fell like shit. I can't breathe, I have COPD. I can't stop coughing. My inhaler is not working and neither is my breathing treatments." 11792-4Svlscvxbk department Triage aqtfHE1102-58-74G16:10:01[facility] department Triage noteTXT1.2.840.898514.1.13.104.2.7. 2.188742|[id number] for patient xzkg55669-0Vldsquhsi department NoteLNNARRATIVEFormatted C-CDA narrative textUT[address] Dt[id number] 6OXQLINSELHSDHXHXAZSBOX5805-91-31C3 3:10:011.2.840.232972.1.72.3.15|1.2 .840.455457.1.13.104.2.7.2.727879_1 [id number] [facility] 2023-04-15 02:55:00 1609-67-66V97:55:00F ormatting of this note is different from the original.[facility] Emergency Department NotePatient Name: Zachary KeatingDate of : 1975 48 year old maleTreatment Room: CA3/AI9Kundivh Record Number: [id number] Care Physician: Freya MorenoPatient Escorted by: Self [9]Mode of Arrival: Personal means [1]EMS Treatment Prior to ED Arrival: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 Pt was evaluated in :[facility] and has work-up including Covid-19 and Influenza that was reportedly negativeHistory provided by: Medical records and patientLanguage nuclear engineer used: NoCoughSeverity: ModerateOnset quality: GradualDuration: 2 weeksTiming: [...] of acute cardiopulmonary disease.Technical Quality: AdequateRL: 109AFC: 68496Brp of report Lab Results:Lab ResultsCBC WITH DIFF [...] 0.06 0.01 - 0.09 10*3/uLCOMP. METABOLIC PANEL (68720) - AbnormalNA 141 135 - 145 mmol/LK [...] U/LAST(SGOT) 27 13 - 40 U/LeGFR 114.4 mL/min/1.89l6CKXIMUET I - NormalTROPONIN I 0.006 <=0.034 ng/mLN-TERMINAL [...] nebulizer solutionFirst Provider Eval:ED EventsDate/Time Event User Reezgvij06/28/23310 Medical Screening Begins EVA RAMIREZ MD --04/15/23310 [...] follow-upSDb gore, DOSpecialty: IM-PULMONARY DISEASE, IM-CRITICAL CARE MEDICINEALBUQUERQUE IN[facility] AND [id number] [facility] [address]Cwvnd: [phone] signed by:Eva Ramirez MD04/15/23 0537 37987-1Hstedkmgb Emergency department SymgQH3808-41-41C06:37:25[facility] Emergency department NoteTXT1.2.840.306056.1.13.104.2.7. 2.696294|[id number] for patient hgmk65515-3Hmdlwptqp department NoteLNNARRATIVEFormatted C-CDA narrative textUT[address] YhsnAidytetkuKzqtxrfslXMHI766917207 5PODKXDLSLDKFYBRGZTAWHI0208-83-83X3 5:37:251.2.840.688823.1.72.3.15|1.2 .840.155607.1.13.104.2.7.2.727879_1 [id number] [facility] 2022-11-21 18:11:41 1630-76-81X35:11:41F ormatting of this note might be different from the original.Pt given printed and verbal discharge instructions regarding fall, rib fracture, knee pain, encouraged hydration.2 Prescriptions sent to pharmacy.Discussed ibuprofen and to take with food to avoid GI distress.Discussed Tylenol # 3/[place] side affects and to avoid driving/operating machinery/or [...] leaving via wheelchair, in no apparent distress. 49183-5Ciudkhaaf department VcgeWE3425-21-15P27:13:33[facility] department NoteTXT1.2.840.391052.1.13.104.2.7. 2.913062|[id number] for patient wrwy95113-4PojpVK468856653Hklpnf M Herrera RN[id number] 6HKUJQVSQEQSCCPFJXBEDBR7891-82-03H9 8:13:331.2.840.616892.1.72.3.15|1.2 .840.839718.1.13.104.2.7.2.727879_1 [id number] Shell Sears RN [facility] 2022-11-21 13:35:53 0004-08-10G21:35:53F ormatting of this note might be different from the original.Patient states: "About 1.5 hours ago I was playing basketball, went up for a rebound. I fell and landed on my hand on my left ribs with some people on top of me. I'm having bad rib pain and shortness of breath. Also my right knee hurts pretty bad" 27919-9Afgfwxyjp department Triage bdjiQG7217-53-05C76:36:53[facility] Triage noteTXT1.2.840.126471.1.13.104.2.7. 2.595928|[id number] for patient vajy79231-6Xopqyjwcp department [id number] M Cruz RN[id number] 2XMRRCLQQJYTIKDTBSGLVRV7872-70-01M7 3:36:531.2.840.944064.1.72.3.15|1.2 .840.661741.1.13.104.2.7.2.727879_1 [id number] Sowmya Arndt RN [facility] 2022-11-21 13:27:00 7050-40-69Q33:27:00F ormatting of this note is different from the original.[facility] Emergency Department NotePatient Name: Zachary Dalton of : 1975 47 year old maleTreatment Room: [address]JKQ77-61Vqfxqsw Record Number: [id number] Care Physician: Kye Hamilton Escorted by: Family [5]Mode of Arrival: Personal means [1]EMS Treatment 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 RL: 6600 AFC: 90684 End of report. THORAX WO CONTRAST Final [...] and comfortable with plan. Procedures: ProceduresMDM:Medical Decision Kvthsx81 yo M presents after fallProblems Addressed:Fall, initial [...] Follow-up:Electronically signed by: Kane Huffman MD11/21/22 1708 68817-7Jjtsnnxxb Emergency department WdkdPO7851-95-26C74:08:54Physician Emergency department NoteTXT1.2.840.446893.1.13.104.2.7. 2.429667|[id number] for patient aakw84161-1Nekrfmpbt department NoteLN[address] FiwnSmpgk[id number] 0CBXXMEIWIQDHDSODTHOXIO8967-98-53G9 7:08:541.2.840.802725.1.72.3.15|1.2 .840.531488.1.13.104.2.7.2.727879_1 [id number] [facility]
[2023-11-09] MEDS ORDERED: dexAMETHasone 10 MG/ML VIAL ONE (00:21)
[2023-11-09] MEDS ORDERED: methocarbamoL 750 MG TAB ONE (00:21)
[2023-11-09] MEDS ORDERED: HYDROMORPHONE HCL 0.5 MG/0.5 ML INJ ONE (00:21)
--- NOTE | 2023-11-09 01:47 | ER ---
Nurse's Notes [facility] Name: Dennis Keating Age: 48 yrs Sex: Male : 1975 Arrival Date: 11/08/2023 Time: 23:19 Bed 8 Private MD: Diagnosis: Pain in right leg;Unspecified mononeuropathy of right lower limb Presentation: 11/07 23:39 Chief complaint: Patient states: I am having hip pain that radiates down the front of jb4 my leg. Coronavirus screen: At this time, the client does not indicate any symptoms associated with coronavirus-19. Ebola Screen: No symptoms or risks identified at this time. Initial Sepsis Screen: Does the patient meet any 2 criteria? No. Patient's initial sepsis screen is negative. Does the patient have a suspected source of infection? No. Patient's initial sepsis screen is negative. Risk Assessment: Do you want to hurt yourself or someone else? Patient reports no desire to harm self or others. Onset of symptoms was November 08, 2023. Transition of care: patient was not received from another setting of care. 23:39 Method Of Arrival: Wheelchair jb4 23:39 Acuity: AMNA 4 jb4 Triage Assessment: 23:45 General: Appears in no apparent distress. uncomfortable, Behavior is calm, cooperative. jw7 Historical: - Allergies: 23:40 Aspirin; jb4 23:40 Cipro PO; jb4 23:40 Ibuprofen; jb4 23:40 PENICILLINS; jb4 23:40 Toradol; jb4 23:40 ketorolac tromethamine; jb4 - PMHx: 23:40 Back pain; Myocardial infarction; Diverticulitis; Congestive heart failure; CHRONS; jb4 Chronic obstructive lung disease; - PSHx: 23:40 Ankle; bowel resection; hand; knee; foot; testicle; jb4 - Immunization history:: Adult Immunizations up to date. - Infectious Disease History:: Denies. - Social history:: Smoking status: Patient denies any tobacco usage or history of. Screenin/23 02:05 [facility] ED Fall Risk Assessment (Adult) History of falling in the last 3 months, jb4 including since admission No falls in past 3 months (0 pts) Confusion or Disorientation No (0 pts) Intoxicated or Sedated No (0 pts) Impaired Gait No (0 pts) Mobility Assist Device Used No (0 pt) Altered Elimination No (0 pt) Score/Fall Risk Level 0 - 2 = Low Risk. Abuse screen: Denies threats or abuse. Nutritional screening: No deficits noted. Tuberculosis screening: No symptoms or risk factors identified. Assessment: 11/07 23:45 General: Appears in no apparent distress. uncomfortable, Behavior is calm, cooperative, jw7 appropriate for age. 23:45 Pain: Complains of pain in hip Pain radiates to down front of leg Pain currently is 6 jw7 out of 10 on a pain scale. Quality of pain is described as throbbing, Pain began gradually, Is continuous. Neuro: Level of Consciousness is awake, alert, obeys commands, Oriented to person, place, time, situation, Appropriate for age. Cardiovascular: Heart tones S1 S2 present Capillary refill < 3 seconds Clubbing of nail beds is absent JVD is absent Patient's skin is warm and dry. Respiratory: Airway is patent Trachea midline Respiratory effort is even, unlabored, Respiratory pattern is regular, symmetrical. GI: Abdomen is round non-distended, Bowel sounds present X 4 quads. Abd is soft and non tender X 4 quads. : No deficits noted. No signs and/or symptoms were reported regarding the genitourinary system. EENT: No deficits noted. No signs and/or symptoms were reported regarding the EENT system. Derm: Skin is intact, is healthy with good turgor, Skin is dry, Skin is normal, Skin temperature is warm. Musculoskeletal: Circulation, motion, and sensation intact. Range of motion: intact in all extremities. 11/08 01:00 Reassessment: Patient appears in no apparent distress at this time. No changes from jw7 previously documented assessment. Patient and/or family updated on plan of care and expected duration. Pain level reassessed. Patient is alert, oriented x 3, equal unlabored respirations, skin warm/dry/pink. 02:05 Reassessment: Patient appears in no apparent distress at this time. Patient and/or jb4 family updated on plan of care and expected duration. Pain level reassessed. Patient is alert, oriented x 3, equal unlabored respirations, skin warm/dry/pink. Patient states feeling better. Vital Signs: 11/07 23:39 BP 155 / 97; Pulse 86; Resp 16; Temp 98.3(TE); Pulse Ox 97% on R/A; Weight 167.83 kg jb4 (R); Height 6 ft. 2 in. (R); Pain 10/10; 11/08 00:33 BP 134 / 81; Pulse 77; Resp 14; Pulse Ox 100% ; Pain 8/10; jm12 01:00 BP 130 / 79; Pulse 80; Resp 17 S; Pulse Ox 100% on R/A; jw7 01:05 Pain 8/10; jm12 02:00 BP 135 / 84; Pulse 78; Resp 16 S; Pulse Ox 99% on R/A; jw7 11/07 23:39 Body Mass Index 47.50 (167.83 kg, 187.96 cm) [facility] 11/07 23:39 Pain Scale: Adult [facility] 11/08 00:33 Pain Scale: Adult 12 01:05 Pain Scale: Adult [facility] ED Course: 11/07 23:20 Patient arrived in ED. jj6 23:21 Marcin Doty PA is PHCP. cp 23:21 Carmine Coy MD is Attending Physician. cp 23:40 Triage completed. jb4 23:40 Arm band placed on right wrist. jb4 11/08 00:12 XRAY Pelvis In Process Unspecified. EDMS 00:12 XRAY Femur RIGHT In Process Unspecified. EDMS 02:05 Patient has correct armband on for positive identification. Side rails up X 1. Provided jb4 Education on: Discharge instructions.. 02:05 No provider procedures requiring assistance completed. Patient did not have IV access jb4 during this emergency room visit. Administered Medications: 11/07 23:55 CANCELLED (Physician Discretion): fentanyl (pf)50 mcg IM once cp 11/08 00:30 Drug: HYDROmorphone IM 1 mg IM once Route: IM; Site: left deltoid; 12 01:05 Follow up: Pain 8/10 Adult; Response: No adverse reaction; Marked relief of symptoms 12 00:30 Drug: Methocarbamol PO 750 mg PO once Route: PO; 12 02:12 Follow up: Response: No adverse reaction; Marked relief of symptoms 7 00:30 Drug: Dexamethasone IM 10 mg IM once Route: IM; Site: right deltoid; jm12 01:04 Follow up: Response: No adverse reaction; Marked relief of symptoms jm12 01:57 Drug: Neurontin PO 600 mg PO once Route: PO; jb4 02:12 Follow up: Response: No adverse reaction; Medication administered at discharge. jw7 01:57 Drug: HYDROcodone-acetaminophen PO 10 mg-325 mg 1 tabs PO once Route: PO; jb4 02:12 Follow up: Response: No adverse reaction; Medication administered at discharge. jw7 Medication: 02:05 VIS not applicable for this client. jb4 Outcome: 01:46 Discharge ordered by MD. randi 02:04 Discharged to home via wheelchair, [facility] 02:04 Condition: good 02:04 Discharge instructions given to patient, Instructed on discharge instructions, follow up and referral plans. Demonstrated understanding of instructions, follow-up care, 02:05 Patient left the ED. jm12 Signatures: Dispatcher [employer] EDMS Marcin Doty PA PA cp Bryson, James, RN RN jb4 Yudith Luceroj6 Eda Lee RN RN jw7 Marianna Galvez RN RN jm12 Corrections: (The following items were deleted from the chart) 11/07 23:48 23:39 BP 98 / 71; Pulse 86bpm; Resp 16bpm; Pulse Ox 97% RA; Temp 98.3F Temporal; 167.83 jb4 kg Reported; Height 6 ft. 2 in. Reported; BMI: 47.5; Pain 01/26, Adult; jb4
--- NOTE | 2023-11-09 01:47 | EDPHYS ---
Physician Documentation [facility] Name: Dennis Keating Age: 48 yrs Sex: Male : 1975 Arrival Date: 11/08/2023 Time: 23:19 Bed 8 Private MD: ED Physician Carmine Coy HPI: 11/07 23:40 This 48 yrs old Male presents to ER via Wheelchair with complaints of Leg Pain. cp 23:40 The patient presents with pain, that is acute. cp 23:40 The complaints affect the right hip and lateral aspect of right thigh. Context: cp resulted from an unknown cause, the patient can fully bear weight, the patient is able to ambulate, with moderate difficulty, Problem is a result from a previous injury: No. Onset: The symptoms/episode began/occurred gradually, and became worse today. Associated signs and symptoms: Pertinent positives: numbness, radiating pain down leg, Pertinent negatives calf tenderness, fever, weakness. Treatment prior to arrival includes: no previous treatment. Historical: - Allergies: 23:40 Aspirin; jb4 23:40 Cipro PO; jb4 23:40 Ibuprofen; jb4 23:40 PENICILLINS; jb4 23:40 Toradol; jb4 23:40 ketorolac tromethamine; jb4 - PMHx: 23:40 Back pain; Myocardial infarction; Diverticulitis; Congestive heart failure; CHRONS; jb4 Chronic obstructive lung disease; - PSHx: 23:40 Ankle; bowel resection; hand; knee; foot; testicle; jb4 - Immunization history:: Adult Immunizations up to date. - Infectious Disease History:: Denies. - Social history:: Smoking status: Patient denies any tobacco usage or history of. ROS: 23:45 Constitutional: Negative for chills, fever, poor PO intake, cp 23:45 Eyes: Negative for injury, pain, redness, and discharge, cp 23:45 Cardiovascular: Negative for chest pain, palpitations, 23:45 Respiratory: Negative for cough, shortness of breath, wheezing, 23:45 Abdomen/GI: Negative for abdominal pain, nausea, vomiting, and diarrhea, 23:45 MS/extremity: Positive for pain, of the right leg, Negative for injury or acute deformity, decreased range of motion, 23:45 Neuro: Negative for altered mental status, dizziness, headache, weakness, 23:45 All other systems are negative, Exam: 23:50 Constitutional: The patient appears in no acute distress, alert, awake, cp non-diaphoretic, non-toxic, well developed, well nourished, obese, uncomfortable, 23:50 Head/Face: Normocephalic, atraumatic. cp 23:50 Eyes: Periorbital structures: appear normal, Conjunctiva: normal, no exudate, no injection, Sclera: no appreciated abnormality, Lids and lashes: appear normal, bilaterally, 23:50 ENT: External ear(s): are unremarkable, Nose: is normal, Mouth: Lips: moist, Oral mucosa: moist, Posterior pharynx: Airway: no evidence of obstruction, patent, 23:50 Neck: ROM/movement: is normal, is supple, 23:50 Chest/axilla: Inspection: normal, 23:50 Cardiovascular: Rate: normal, Rhythm: regular, Edema: ankle edema, that is mild, JVD: is not appreciated, 23:50 Respiratory: the patient does not display signs of respiratory distress, Respirations: normal, no use of accessory muscles, no retractions, 23:50 Abdomen/GI: Inspection: obese Palpation: abdomen is soft and non-tender, in all quadrants, 23:50 Back: CVA tenderness, is absent, vertebral tenderness, is not appreciated, 23:50 Musculoskeletal/extremity: Extremities: noted in the lateral aspect of right thigh: pain, tenderness, 23:50 Neuro: Orientation: to person, place \T\ time. Mentation: is normal, Motor: moves all fours, strength is normal, Sensation: no obvious gross deficits, Vital Signs: 23:39 BP 155 / 97; Pulse 86; Resp 16; Temp 98.3(TE); Pulse Ox 97% on R/A; Weight 167.83 kg jb4 (R); Height 6 ft. 2 in. (R); Pain 01/26; 11/08 00:33 BP 134 / 81; Pulse 77; Resp 14; Pulse Ox 100% ; Pain 8/10; jm12 01:00 BP 130 / 79; Pulse 80; Resp 17 S; Pulse Ox 100% on R/A; jw7 01:05 Pain 8/10; jm12 02:00 BP 135 / 84; Pulse 78; Resp 16 S; Pulse Ox 99% on R/A; jw7 11/07 23:39 Body Mass Index 47.50 (167.83 kg, 187.96 cm) jb4 11/07 23:39 Pain Scale: Adult 4 11/08 00:33 Pain Scale: Adult 12 01:05 Pain Scale: Adult 12 MDM: 11/07 23:40 Patient medically screened. 11/08 00:00 Differential diagnosis: hip fracture, bursitis, sciatica, DVT. 01:45 Data reviewed: vital signs, nurses notes, radiologic studies, plain films. 01:45 I considered the following discharge prescriptions or medication management in the emergency department Medications were administered in the Emergency Department. See MAR. Care significantly affected by the following chronic conditions: Congestive Heart Failure, Chronic Obstructive Pulmonary Disease, Obesity. 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 Response to treatment: the patient's symptoms have markedly improved after treatment, and as a result, I will discharge patient. 11/07 23:41 Order name: XRAY Pelvis cp 11/07 23:41 Order name: XRAY Femur RIGHT cp Administered Medications: 11/07 23:55 CANCELLED (Physician Discretion): fentanyl (pf)50 mcg IM once 11/08 00:30 Drug: HYDROmorphone IM 1 mg IM once Route: IM; Site: left deltoid; jm12 01:05 Follow up: Pain 8/10 Adult; Response: No adverse reaction; Marked relief of symptoms 12 00:30 Drug: Methocarbamol PO 750 mg PO once Route: PO; jm12 02:12 Follow up: Response: No adverse reaction; Marked relief of symptoms 00:30 Drug: Dexamethasone IM 10 mg IM once Route: IM; Site: right deltoid; jm12 01:04 Follow up: Response: No adverse reaction; Marked relief of symptoms 12 01:57 Drug: Neurontin PO 600 mg PO once Route: PO; jb4 02:12 Follow up: Response: No adverse reaction; Medication administered at discharge. jw 01:57 Drug: HYDROcodone-acetaminophen PO 10 mg-325 mg 1 tabs PO once Route: PO; jb4 02:12 Follow up: Response: No adverse reaction; Medication administered at discharge. jw7 Disposition: 04:36 Co-signature as Attending Physician, Marcin RIOS I agree with the assessment and plan sp4 of care. I reviewed the patient's care provided by the Advanced Practice Provider and agree with the diagnosis and treatment plan. Disposition Summary: 11/09/23 01:46 Discharge Ordered Notes: Location: Home cp Problem: new cp Symptoms: have improved cp Condition: Stable cp Diagnosis - Pain in right leg cp - Unspecified mononeuropathy of right lower limb cp Followup: cp - With: Private Physician - When: 2 - 3 days - Reason: Recheck today's complaints Discharge Instructions: - Discharge Summary Sheet cp - Musculoskeletal Pain cp - Peripheral Neuropathy cp - How to Use Cold Therapy cp - Heat Therapy cp Forms: - Medication Reconciliation Form cp - Antibiotic Education cp - Prescription Opioid Use cp - Patient Portal Instructions cp - Leadership Thank You Letter cp Prescriptions: - Celebrex 200 mg Oral Capsule - take 1 capsule ORAL route once daily As needed take with food; 20 capsule; cp Refills: 0, Product Selection Permitted - Lyrica 100 mg Oral Capsule - take 1 capsule ORAL route every 8 hours As needed; 30 capsule; Refills: 0, cp Product Selection Permitted Signatures: Dispatcher [employer] EDMS Marcin Doty PA PA cp Dennis Hammonds, RN RN jb4 Carmine Coy MD MD sp4 Marianna Galvez RN RN jm12 Eda Lee RN jw7 Corrections: (The following items were deleted from the chart) 11/07 23:55 23:45 fentaNYL (PF) IM 50 mcg IM once ordered. cp cp
[2023-11-09] MEDS ORDERED: HYDROCODONE/APAP 10/325 TAB ONE (01:53)
[2023-11-09] MEDS ORDERED: GABAPENTIN 300 MG CAP ONE (01:53)
--- NOTE | 2023-11-09 15:32 | RAD REPORT ---
EXAM DESCRIPTION: RAD - Femur Right - 11/09/2023 12:10 am CLINICAL HISTORY: The patient is 48 years old and is Male; PAIN TECHNIQUE: Frontal and lateral views of the right femur. COMPARISON: No relevant prior studies available. FINDINGS: BONES/JOINTS: Mild degenerative changes about the knee is present. No acute fracture. No dislocation. SOFT TISSUES: Unremarkable. IMPRESSION: No acute findings in the right femur. Electronically signed by: Sanam Garzon MD 11/09/2023 12:34 AM CDT RP Due to temporary technical issues with the PACS/Fluency reporting system, reports are being signed by the in house radiologists without review as a courtesy to insure prompt reporting. The interpreting radiologist is fully responsible for the content of the report.
--- NOTE | 2023-11-09 15:38 | RAD REPORT ---
EXAM DESCRIPTION: RAD - Pelvis - 11/09/2023 12:10 am CLINICAL HISTORY: The patient is 48 years old and is Male; PAIN TECHNIQUE: Frontal view of the pelvis. COMPARISON: No relevant prior studies available. FINDINGS: BONES/JOINTS: The femoral heads are located. The SI joints and pubic symphysis are intac t without evidence of diastases. No acute fracture. No dislocation. SOFT TISSUES: Unremarkable. IMPRESSION: No acute findings in the pelvis. Electronically signed by: Sanam Garzon MD 11/09/2023 12:35 AM CDT RP Due to temporary technical issues with the PACS/Fluency reporting system, reports are being signed by the in house radiologists without review as a courtesy to insure prompt reporting. The interpreting radiologist is fully responsible for the content of the report.
[2023-11-11 16:14] VITALS: BP 134/81; TEMP 98.3; O2SAT 100
== END 2023-11-09 02:05 | disposition home or self-care (01) ==
LOC: ER 23:19
DX: G57.91 Unspecified mononeuropathy of right lower limb (principal); M79.604 Pain in right leg; Z88.0 Allergy status to penicillin; Z88.8 Allergy status to other drugs, medicaments and biological substances
CPT/HCPCS: 72170; 73552; 96372; 99284; J1100; J1170

== ENCOUNTER 2024-02-08 19:04 | Emergency (ER) | payer OTHER ==
[2024-02-08 22:02] LABS: Absolute Basophils 0.2 K/uL (0-0.5); Absolute Eosinophils 0.3 K/uL (0-0.5); Absolute Lymphocytes (CBC) 3.5 K/uL (0.7-4.9); Absolute Monocytes 0.9 K/uL (0.1-1.3); Absolute Neutrophil 5.7 K/uL (1.8-8.0); Basophils % 1.8 % (0-1.3); Eosinophils % 3.1 % (0-4.4); Hematocrit 44.5 % (39.6-49.0); Hemoglobin 14.9 g/dL (13.6-17.9); Lymphocytes % 32.9 % (15.3-44.8); MCH 28.8 pg (27.0-35.0); MCHC 33.5 g/dL (32.0-36.0); MCV 85.9 fL (80-100); MPV 9.2 fL (7.6-11.3); Monocytes % 8.1 % (3.3-12.3); Neutrophils % 54.1 % (41.7-73.7); Nucleated Red Blood Cells % 0.2 % (0-0); Platelets 187 thou/uL (152-406); RBC Red Blood Cell Count 5.17 M/uL (4.33-5.43); Red Cell Distribution Width 13.7 % (12.1-15.2)
[2024-02-08 22:14] LABS: Albumin 3.4 g/dL (3.4-5.0); Albumin/Globulin Ratio 0.9 (1.1-1.8); Anion Gap 8.2 mEq/L (5.0-15.0); Bilirubin Total 0.5 mg/dL (0.2-1.0); Globulin 3.9 g/dL (2.3-3.5); Protein, Total 7.3 g/dL (6.4-8.2)
[2024-02-08 22:19] LABS: Potassium 4.2 mEq/L (3.5-5.1)
[2024-02-08] MEDS ORDERED: MORPHINE 4 MG/ML SYR ONE ×2 (22:21→23:14)
[2024-02-08] MEDS ORDERED: ONDANSETRON 4 MG/2 ML VIAL ONE (22:21)
[2024-02-08] MEDS ORDERED: METHYLPREDNISOLONE 125 MG INJ ONE (22:21)
[2024-02-08] MEDS ORDERED: NA CHLORIDE 0.9% 1,000 ML ONE (22:22)
[2024-02-08 22:56] LABS: Blood Morphology Comment NOT SEEN (NOT SEEN); Platelet Estimate ADEQ; White Blood Cell Scan OK (OK)
[2024-02-08] MEDS ORDERED: DICYCLOMINE HCL 20 MG/2 ML AMP IM ONE (23:04)
--- NOTE | 2024-02-08 23:27 | RAD REPORT ---
CLINICAL HISTORY: ABD PAIN. COMPARISON: CT abdomen/pelvis from October 04, 2023. TECHNIQUE: CT of the abdomen and pelvis was performed following intravenous administration of iodinat ed contrast. Oral contrast was not administered. Axial, coronal, and sagittal soft tissue window reconstructions were created and sent to PACS. This exam was performed according to our departmental dose-optimization program, which includes autom ated exposure control, adjustment of the mA and/or kV according to patient size and/or use of iterative reconstruction technique. FINDINGS: Thoracic: No significant abnormality. Hepatobiliary: No concerning hepatic lesion identified. The portal veins are patent. The gallbladder is unremarkable. No biliary ductal dilatation. Pancreas: Unremarkable. Spleen: Unremarkable. Gastrointestinal: No evidence of bowel obstruction or perienteric inflammation. The appendix is simba l. Left hemicolectomy with unremarkable appearance of a sigmoid anastomosis. Small stool burden. Few descending colon diverticula. Adrenals: No abnormality identified in either adrenal gland. Renal: No concerning parenchymal lesion in either kidney. No hydronephrosis or urolithiasis. Bladder/Reproductive: Unremarkable appearance of the urinary bladder by CT technique. Vascular/Lymphatics: No lymphadenopathy identified by CT size criteria. Abdominal aorta is normal in caliber. Musculoskeletal: No concerning osseous lesion identified. Small bilateral fat-containing inguinal her nias with no inflammatory changes. Fluid / peritoneum: No significant free fluid. No free intraperitoneal air identified. IMPRESSION No acute abnormality identified in the abdomen or pelvis by CT. Electronically signed by: Linda Banegas MD 02/08/2024 10:58 PM CDT RP Due to temporary technical issues with the PACS/Nestio reporting system, reports are being quirino d by the in-house radiologist without review as a courtesy to ensure prompt reporting the interpreting radiologist is fully responsible for the content of the report. Transcribed Date/Time: 02/08/2024 11:27 PM
--- NOTE | 2024-02-08 23:52 | ER ---
Nurse's Notes [facility] Name: Dennis Keating Age: 48 yrs Sex: Male : 1975 Arrival Date: 02/08/2024 Time: 19:04 Bed 26 Private MD: Diagnosis: Lower abdominal pain, unspecified;Diarrhea, unspecified Presentation: 02/07 19:40 Chief complaint: Patient states: Left sided abdominal pain onset yesterday. Pt reports cm10 diarrhea for 2 days. Coronavirus screen: Client denies travel out of the [place] in the last 14 days. Ebola Screen: Patient denies travel to an Ebola-affected area in the 21 days before illness onset. No symptoms or risks identified at this time. Initial Sepsis Screen: Does the patient meet any 2 criteria? No. Patient's initial sepsis screen is negative. Does the patient have a suspected source of infection? No. Patient's initial sepsis screen is negative. Risk Assessment: Do you want to hurt yourself or someone else? Patient reports no desire to harm self or others. Onset of symptoms was February 06, 2024. 19:40 Method Of Arrival: Wheelchair cm10 19:40 Acuity: AMNA 3 cm10 Triage Assessment: 19:43 General: Appears in no apparent distress. uncomfortable, Behavior is calm, cooperative. cm10 Neuro: No deficits noted. Level of Consciousness is awake, alert, obeys commands, Oriented to person, place, time, situation, Appropriate for age. Respiratory: No deficits noted. Airway is patent Respiratory effort is even, unlabored, Respiratory pattern is regular, symmetrical. Historical: - Allergies: 19:42 Aspirin; cm10 19:42 Cipro PO; cm10 19:42 Ibuprofen; cm10 19:42 ketorolac tromethamine; cm10 19:42 PENICILLINS; cm10 19:42 Toradol; cm10 - PMHx: 19:42 Back pain; Chronic obstructive lung disease; CHRONS; Congestive heart failure; cm10 Diverticulitis; Myocardial infarction; - PSHx: 19:42 Ankle; bowel resection; foot; hand; knee; testicle; cm10 - Immunization history:: Adult Immunizations up to date. - Infectious Disease History:: Denies. - Social history:: Smoking status: Reported history of juuling and/or vaping. Screenin:45 [facility] ED Fall Risk Assessment (Adult) History of falling in the last 3 months, me1 including since admission No falls in past 3 months (0 pts) Confusion or Disorientation No (0 pts) Intoxicated or Sedated No (0 pts) Impaired Gait No (0 pts) Mobility Assist Device Used No (0 pt) Altered Elimination No (0 pt) Score/Fall Risk Level 0 - 2 = Low Risk Maintained a safe environment, Provided non-skid footwear, Hourly rounding (assess needs \T\ fall precautionary measures) done. Abuse screen: Denies threats or abuse. Nutritional screening: No deficits noted. Tuberculosis screening: No symptoms or risk factors identified. Assessment: 20:45 General: Appears uncomfortable, ill, well groomed, well developed, well nourished, me1 Behavior is calm, cooperative, appropriate for age, Reports Left sided abdominal pain onset yesterday. Pt reports diarrhea for 2 days. Pain: Complains of pain in abdomen Pain does not radiate. Pain currently is 9 out of 10 on a pain scale. Quality of pain is described as crampy, sharp, Pain began gradually, 2-3 days ago. Is continuous. Neuro: Level of Consciousness is awake, alert, obeys commands, Oriented to person, place, time, situation, Appropriate for age. Cardiovascular: Patient's skin is warm and dry. Respiratory: Airway is patent Respiratory effort is even, unlabored, Respiratory pattern is regular, symmetrical. GI: Abdomen is round Bowel sounds present X 4 quads. Abd is soft X 4 quads. GI: Reports lower abdominal pain, upper abdominal pain, diarrhea. : No signs and/or symptoms were reported regarding the genitourinary system. EENT: No signs and/or symptoms were reported regarding the EENT system. Derm: Skin is intact, is healthy with good turgor, Skin is pink, warm \T\ dry. Musculoskeletal: No signs and/or symptoms reported regarding the musculoskeletal system. Vital Signs: 19:40 BP 156 / 106; Pulse 75; Resp 16; Temp 96.9(IR); Pulse Ox 98% on R/A; Weight 167.83 kg; cm10 Height 6 ft. 2 in. ; Pain 10/10; 21:30 BP 141 / 57; Pulse 62; Resp 16; Pulse Ox 100% ; me1 22:30 BP 128 / 86; Pulse 68; Resp 16; Pulse Ox 100% ; me1 23:15 BP 134 / 78; Pulse 68; Resp 15; Pulse Ox 94% ; me1 23:31 Pain 4/10; me1 23:51 BP 142 / 87; Pulse 72; Resp 16; Temp 98.4; Pulse Ox 97% ; me1 19:40 Body Mass Index 47.50 (167.83 kg, 187.96 cm) cm10 19:40 Pain Scale: Adult cm10 23:31 Pain Scale: Adult me1 ED Course: 19:06 Patient arrived in ED. im 19:20 Karen Sheppard FNP-C is PHCP. kb 19:20 Jose John MD is Attending Physician. kb 19:42 Triage completed. cm10 19:43 Arm band placed on Patient placed in an exam room. cm10 20:45 Patient has correct armband on for positive identification. Bed in low position. Call me1 light in reach. Side rails up X2. Provided Education on: POC. Verbalized understanding.. Client placed on continuous cardiac and pulse oximetry monitoring. NIBP monitoring applied. Pulse ox on. NIBP on. 20:45 No provider procedures requiring assistance completed. me1 21:03 Mony Hurtado, RN is Primary Nurse. me1 21:39 Missed attempt(s): 22 gauge in right antecubital area. me1 21:39 Missed attempt(s): 22 gauge in left antecubital area. me1 21:55 Missed attempt(s): 22 gauge in left Bleeding controlled, band aid applied, catheter tip kmf intact. 21:55 Missed attempt(s): 22 gauge in right Bleeding controlled, band aid applied, catheter kmf tip intact. 22:20 Accessed peripheral vein via ultrasound, utilizing dynamic ultrasound technique Blood cm10 collected. Clean \T\ dry. Dressing intact. Good blood return. Flushes easily. 20g right forearm. 22:47 CT Abd/Pelvis - IV Contrast Only In Process Unspecified. EDMS 23:58 IV discontinued, intact, bleeding controlled, No redness/swelling at site. Pressure me1 dressing applied. Administered Medications: 22:29 Drug: NS 0.9% IV 1000 ml IV at 1 bolus Per protocol; to be given as a bolus over 60 me1 minutes Route: IV; Rate: 1 bolus; Site: right forearm; 23:58 Follow up: Response: No adverse reaction; IV Status: Completed infusion; IV Intake: me1 1000ml 22:30 Drug: Ondansetron IVP 4 mg IVP once; over 2 minutes Route: IVP; Site: right forearm; me1 22:52 Follow up: Response: No adverse reaction; Nausea unchanged me1 22:30 Drug: morphine IVP or IV 4 mg IVP once over 4 mins Route: IVP; Infused Over: 4 mins; me1 Site: right forearm; 22:52 Follow up: Response: No adverse reaction; Pain is unchanged, physician notified me1 22:30 Drug: MethylPrednisoLONE IVP 125 mg IVP once Route: IVP; Site: right forearm; me1 22:51 Follow up: Response: No adverse reaction me1 23:06 Drug: Dicyclomine IM 20 mg IM once Route: IM; Site: right deltoid; me1 23:31 Follow up: Response: No adverse reaction; Pain is decreased me1 23:19 Drug: morphine IVP or IV 4 mg IVP once over 4 mins Route: IVP; Infused Over: 4 mins; me1 Site: right forearm; 23:31 Follow up: Pain 4/10 Adult; Response: No adverse reaction; Pain is decreased me1 Medication: 20:45 VIS not applicable for this client. me1 Intake: 23:58 IV: 1000ml; Total: 1000ml. me1 Outcome: 23:52 Discharge ordered by . kb 23:58 Discharged to home via wheelchair, with family, me1 23:58 Condition: stable 23:58 Discharge instructions given to patient, Instructed on discharge instructions, follow up and referral plans. medication usage, Demonstrated understanding of instructions, follow-up care, medications, Prescriptions given X 3, 23:59 Patient left the ED. me1 Signatures: Dispatcher [employer] Karen Guerra, DANIELC [employer]OLING MACHINE OPERATOR-Divina Ashby Clarissa, RN RN cm10 Mony Hurtado RN RN me1 Raisa Coreas [facility] Corrections: (The following items were deleted from the chart) 21:39 21:39 Missed attempt(s): 20 gauge in right forearm. me1 me1 23:31 19:40 Chief complaint: Patient states: Left sided abdominal pain onset yesterday. Pt me1 reports diarrhea for 2 days. cm10
--- NOTE | 2024-02-08 23:53 | EDPHYS ---
Physician Documentation [facility] Name: Dennis Keating Age: 48 yrs Sex: Male : 1975 Arrival Date: 02/08/2024 Time: 19:04 Bed 26 Private MD: ED Physician Jose John HPI: 02/08 00:30 This 48 yrs old Male presents to ER via Wheelchair with complaints of Abdominal Pain, kb Diarrhea. 00:30 Patient is a 48-year-old male with a history of Crohn's who presents for left lower kb abdominal pain and diarrhea that started 2 days ago. Reports nausea. Denies vomiting or fever. No aggravating or alleviating factors.. Historical: - Allergies: 02/07 19:42 Aspirin; cm10 19:42 Cipro PO; cm10 19:42 Ibuprofen; cm10 19:42 ketorolac tromethamine; cm10 19:42 PENICILLINS; cm10 19:42 Toradol; cm10 - PMHx: 19:42 Back pain; Chronic obstructive lung disease; CHRONS; Congestive heart failure; cm10 Diverticulitis; Myocardial infarction; - PSHx: 19:42 Ankle; bowel resection; foot; hand; knee; testicle; cm10 - Immunization history:: Adult Immunizations up to date. - Infectious Disease History:: Denies. - Social history:: Smoking status: Reported history of juuling and/or vaping. ROS: 02/08 00:30 Constitutional: As per HPI kb Exam: 00:30 Constitutional: This is a well developed, well nourished patient who is awake, alert, kb and in no acute distress. Head/Face: Normocephalic, atraumatic. ENT: Moist Mucous membranes Cardiovascular: Regular rate Respiratory: Respirations even and unlabored. No increased work of breathing. Talking in full sentences Skin: Warm, dry with normal turgor. Normal color. MS/ Extremity: Pulses equal, no cyanosis. Neurovascular intact. Full, normal range of motion. Neuro: Awake and alert, GCS 15, oriented to person, place, time, and situation. 00:30 Abdomen/GI: Inspection: abdomen appears normal, Bowel sounds: normal, Palpation: soft, in all quadrants, mild abdominal tenderness, in the right upper quadrant, left upper quadrant and right lower quadrant, moderate abdominal tenderness, in the left lower quadrant, Vital Signs: 02/07 19:40 BP 156 / 106; Pulse 75; Resp 16; Temp 96.9(IR); Pulse Ox 98% on R/A; Weight 167.83 kg; cm10 Height 6 ft. 2 in. ; Pain 10/10; 21:30 BP 141 / 57; Pulse 62; Resp 16; Pulse Ox 100% ; me1 22:30 BP 128 / 86; Pulse 68; Resp 16; Pulse Ox 100% ; me1 23:15 BP 134 / 78; Pulse 68; Resp 15; Pulse Ox 94% ; me1 23:31 Pain 4/10; me1 23:51 BP 142 / 87; Pulse 72; Resp 16; Temp 98.4; Pulse Ox 97% ; me1 19:40 Body Mass Index 47.50 (167.83 kg, 187.96 cm) cm10 19:40 Pain Scale: Adult cm10 23:31 Pain Scale: Adult me1 MDM: 19:20 Medical Screening Exam initiated kb 02/08 00:30 Differential diagnosis: Diverticulitis, Crohn's, nonspecific abdominal pain, viral kb gastroenteritis. Data reviewed: vital signs, nurses notes. Counseling: I had a detailed discussion with the patient and/or guardian regarding the historical points, exam findings, and any diagnostic results supporting the discharge/admit diagnosis, lab results, radiology results, the need for outpatient follow up, a family practitioner, to return to the emergency department if symptoms worsen or persist or if there are any questions or concerns that arise at home. ED course: Patient educated on diagnostic results. Patient states he is feeling better after treatment and is in agreement with outpatient follow-up.. 02/07 19:45 Order name: CBC with Diff; Complete Time: 22:58 cm10 02/07 19:45 Order name: CMP; Complete Time: 22:29 cm10 02/07 19:45 Order name: Lipase; Complete Time: 22:29 cm10 02/07 22:30 Order name: CBC Smear Scan; Complete Time: 22:58 EDMS 02/07 19:45 Order name: CT Abd/Pelvis - IV Contrast Only; Complete Time: 23:47 cm10 02/07 19:45 Order name: IV Saline Lock; Complete Time: 22:21 cm10 02/07 19:45 Order name: Labs collected and sent; Complete Time: 22:21 cm10 Administered Medications: 02/07 22:29 Drug: NS 0.9% IV 1000 ml IV at 1 bolus Per protocol; to be given as a bolus over 60 me1 minutes Route: IV; Rate: 1 bolus; Site: right forearm; 23:58 Follow up: Response: No adverse reaction; IV Status: Completed infusion; IV Intake: me1 1000ml 22:30 Drug: Ondansetron IVP 4 mg IVP once; over 2 minutes Route: IVP; Site: right forearm; me1 22:52 Follow up: Response: No adverse reaction; Nausea unchanged me1 22:30 Drug: morphine IVP or IV 4 mg IVP once over 4 mins Route: IVP; Infused Over: 4 mins; me1 Site: right forearm; 22:52 Follow up: Response: No adverse reaction; Pain is unchanged, physician notified me1 22:30 Drug: MethylPrednisoLONE IVP 125 mg IVP once Route: IVP; Site: right forearm; me1 22:51 Follow up: Response: No adverse reaction me1 23:06 Drug: Dicyclomine IM 20 mg IM once Route: IM; Site: right deltoid; me1 23:31 Follow up: Response: No adverse reaction; Pain is decreased me1 23:19 Drug: morphine IVP or IV 4 mg IVP once over 4 mins Route: IVP; Infused Over: 4 mins; me1 Site: right forearm; 23:31 Follow up: Pain 4/10 Adult; Response: No adverse reaction; Pain is decreased me1 Disposition Summary: 02/08/24 23:52 Discharge Ordered Notes: Location: Home kb Condition: Stable kb Diagnosis - Lower abdominal pain, unspecified kb - Diarrhea, unspecified kb Followup: kb - With: Emergency Department - When: As needed - Reason: Worsening of condition Followup: kb - With: Private Physician - When: 2 - 3 days - Reason: Recheck today's complaints, Continuance of care, Re-evaluation by your physician Discharge Instructions: - Discharge Summary Sheet kb - Abdominal Pain, Adult, [id number] kb - Diarrhea, Adult, [id number] kb Forms: - Medication Reconciliation Form kb - Antibiotic Education kb - Prescription Opioid Use kb - Patient Portal Instructions kb - Leadership Thank You Letter kb Prescriptions: - Prednisone 20 mg Oral Tablet - take 1 tablet ORAL route once daily for 5 days; 5 tablet; Refills: 0, Product kb Selection Permitted - Zofran 4 mg Oral tablet - take 1 tablet ORAL route every 6 hours As needed; 12 tablet; Refills: 0, kb Product Selection Permitted - dicyclomine 20 mg Oral tablet - take 1 tablet ORAL route 4 times per day As needed; 20 tablet; Refills: 0, kb Product Selection Permitted Signatures: Dispatcher [employer] EDMS Karen Sheppard FNP-C FNP-Ckb Martinez, Clarissa RN RN cm10 Mony Hurtado RN RN me1 Corrections: (The following items were deleted from the chart) 19:45 19:45 CBC+H.LAB.BRZ ordered. EDMS EDMS 19:45 19:45 COMPREHENSIVE METABOLIC PANEL+C.LAB.BRZ ordered. EDMS EDMS 19:45 19:45 LIPASE+C.LAB.BRZ ordered. EDMS EDMS 19:45 19:45 Abdomen Pelvis W Con+CT.RAD.BRZ ordered. EDMS EDMS
[2024-02-09 07:33] VITALS: BP 142/87; TEMP 98.4; O2SAT 97
== END 2024-02-08 23:59 | disposition home or self-care (01) ==
LOC: ER 19:04
DX: R10.32 Left lower quadrant pain (principal); R19.7 Diarrhea, unspecified; J44.9 Chronic obstructive pulmonary disease, unspecified; I50.9 Heart failure, unspecified; I25.2 Old myocardial infarction
CPT/HCPCS: 96361; 85025; 36415; 83690; 80053; 74177; 96375; 96372; 96374; 99285; Q9967; J0500; J2919; J2405; J7030

== ENCOUNTER 2024-03-19 19:01 | Emergency (ER) | payer OTHER ==
[2024-03-19 19:50] LABS: Absolute Basophils 0.1 K/uL (0-0.5); Absolute Eosinophils 0.2 K/uL (0-0.5); Absolute Lymphocytes (CBC) 2.2 K/uL (0.7-4.9); Absolute Monocytes 0.6 K/uL (0.1-1.3); Absolute Neutrophil 3.8 K/uL (1.8-8.0); Basophils % 1.4 % (0-1.3); Eosinophils % 2.8 % (0-4.4); Hematocrit 41.5 % (39.6-49.0); Hemoglobin 13.8 g/dL (13.6-17.9); Lymphocytes % 31.5 % (15.3-44.8); MCH 28.8 pg (27.0-35.0); MCHC 33.2 g/dL (32.0-36.0); MCV 86.9 fL (80-100); Monocytes % 8.7 % (3.3-12.3); Neutrophils % 55.6 % (41.7-73.7); Nucleated Red Blood Cells % 0.2 % (0-0); Platelets 164 thou/uL (152-406); RBC Red Blood Cell Count 4.78 M/uL (4.33-5.43); Red Cell Distribution Width 13.7 % (12.1-15.2)
[2024-03-19 19:51] LABS: PT Prothrombin Time 10.1 SECONDS (9.4-12.5); Protime INR 0.9
[2024-03-19] MEDS ORDERED: KETOROLAC 30 MG/ML INJ ONE (20:03)
[2024-03-19 20:09] LABS: ALT/SGPT 44 U/L (16-61); Albumin 3.1 g/dL (3.4-5.0); Albumin/Globulin Ratio 0.8 (1.1-1.8); Alkaline Phosphatase 75 U/L (45-117); BUN Blood Urea Nitrogen 8 mg/dL (7-18); Bicarbonate 28 mEq/L (21-32); Bilirubin Total 0.3 mg/dL (0.2-1.0); Glomerular Filtration Rate 92 ml/min (=/>90); Glucose Level 135 mg/dL (74-106); NT PRO-BNP 378 pg/mL (<125); Protein, Total 7.1 g/dL (6.4-8.2); Sodium Level 141 mEq/L (136-145); Troponin High Sensitivity 9.7 pg/mL (<58.9)
[2024-03-19 20:22] LABS: AST/SGOT 32 U/L (15-37); Bilirubin Direct < 0.2 mg/dL (0-0.2); Bilirubin Indirect, Calculated 0.1 mg/dL (0.2-0.8)
[2024-03-19 20:25] LABS: SARS-CoV-2 Antigen CONTROL BLUE LINE VIS/BG OK; SARS-CoV-2 Antigen Rapid Res Negative (Negative)
--- NOTE | 2024-03-19 20:32 | RAD REPORT ---
EXAMINATION: ONE VIEW CHEST XR CLINICAL INDICATION: DYSPNEA TECHNIQUE: Frontal chest projection is submitted. Examination is limited by patient positioning and t echnique. COMPARISON: 10/31/2023 FINDINGS: The lungs are well inflated and clear. The heart is normal in size. No displaced fractures identified . IMPRESSION: No acute intrathoracic abnormalities.
--- NOTE | 2024-03-19 20:38 | ER ---
Nurse's Notes [facility] Name: Dennis Keating Age: 49 yrs Sex: Male : 1975 Arrival Date: 03/19/2024 Time: 19:01 Bed 17 Private MD: Diagnosis: Peripheral edema, dyspnea, body pain Presentation: 03/19 19:25 Chief complaint: EMS states: pain \T\ swelling on lower extremities that started 2 ago rg5 and getting worst. also complaining of chest pressure now. 19:25 Coronavirus screen: Client denies travel out of the [place] in the last 14 days. Ebola rg5 Screen: Patient negative for fever greater than or equal to 101.5 degrees Fahrenheit, and additional compatible Ebola Virus Disease symptoms. Initial Sepsis Screen: Does the patient meet any 2 criteria? No. Patient's initial sepsis screen is negative. Does the patient have a suspected source of infection? No. Patient's initial sepsis screen is negative. Risk Assessment: Do you want to hurt yourself or someone else? Patient reports no desire to harm self or others. 19:25 Method Of Arrival: EMS: [facility] rg5 19:25 Acuity: AMNA 3 rg5 19:25 Onset of symptoms was March 19, 2024 at 18:00. rg5 Triage Assessment: 19:30 General: Appears in no apparent distress. comfortable, Behavior is calm, cooperative, rg5 appropriate for age. 19:30 Pain: Complains of pain in right leg and left leg Pain currently is 9 out of 10 on a rg5 pain scale. Quality of pain is described as aching, Pain began 4 hours ago. EENT: No signs and/or symptoms were reported regarding the EENT system. Neuro: Level of Consciousness is awake, alert, obeys commands. Cardiovascular: Heart tones S1 S2 Patient's skin is warm and dry. Rhythm is sinus rhythm. Respiratory: Airway is patent Trachea midline Respiratory effort is even, unlabored, Respiratory pattern is regular, symmetrical. GI: Abdomen is round obese, Bowel sounds present X 4 quads. : No signs and/or symptoms were reported regarding the genitourinary system. Derm: Skin is intact, Skin is dry, Skin is normal, Skin temperature is warm. Musculoskeletal: Circulation, motion, and sensation intact. Range of motion: intact in all extremities. Historical: - Allergies: 20:08 Aspirin; rg5 20:08 ketorolac tromethamine; rg5 20:08 PENICILLINS; rg5 20:08 Toradol; rg5 20:08 Ibuprofen; rg5 20:08 Cipro PO; rg5 - Home Meds: 20:08 Lasix 20 mg Oral tablet for EDEMA [Active]; Bumex Oral 2 mg daily [Active]; [place] rg5 10/325 Oral 1 tab twice a day [Active]; Trazodone Oral [Active]; lisinopril 10 mg Oral tablet [Active]; Adderall XR 30 mg Oral capsule 1 cap 2 times per day [Active]; albuterol sulfate 90 mcg/actuation Inhl HFA Aerosol Inhaler 2 inhalations as needed [Active]; - PMHx: 20:08 Back pain; rg5 - PSHx: 20:08 bowel resection; rg5 - Immunization history:: Adult Immunizations up to date. - Infectious Disease History:: Denies. - Social history:: Smoking status: Patient denies any tobacco usage or history of. Screenin:30 [facility] ED Fall Risk Assessment (Adult) History of falling in the last 3 months, rg5 including since admission No falls in past 3 months (0 pts) Confusion or Disorientation No (0 pts) Intoxicated or Sedated No (0 pts) Impaired Gait No (0 pts) Mobility Assist Device Used No (0 pt) Altered Elimination No (0 pt) Score/Fall Risk Level 0 - 2 = Low Risk Oriented to surroundings, Maintained a safe environment, Hourly rounding (assess needs \T\ fall precautionary measures) done. Abuse screen: Denies threats or abuse. Nutritional screening: No deficits noted. Tuberculosis screening: No symptoms or risk factors identified. Assessment: 19:30 Pain: Complains of pain in right leg and left leg Pain currently is 9 out of 10 on a rg5 pain scale. Quality of pain is described as aching. 19:30 Musculoskeletal: Circulation, motion, and sensation intact. Range of motion: intact in rg5 all extremities, Swelling present in right leg and left leg Reports swelling of lower extremities. Vital Signs: 19:59 BP 144 / 77; Pulse 82; Resp 13; Pulse Ox 97% on R/A; af3 21:00 BP 130 / 90; Pulse 87; Resp 17; Temp 98; Pulse Ox 100% on R/A; Pain 0/10; rg5 21:00 Pain Scale: Adult rg5 ED Course: 19:22 Patient arrived in ED. vk 19:24 Shayy Larios MD is Attending Physician. sp3 19:30 No provider procedures requiring assistance completed. rg5 19:30 Patient has correct armband on for positive identification. Bed in low position. Call rg5 light in reach. Side rails up X 1. Client placed on continuous cardiac and pulse oximetry monitoring. NIBP monitoring applied. accredited legal secretary on. Pulse ox on. Door closed. Noise minimized. Warm blanket given. 19:30 Arm band placed on right wrist. rg5 19:30 EKG completed in triage. Results shown to MD. rg5 19:38 Basic Metabolic Panel Sent. af3 19:38 CBC with Diff Sent. af3 19:38 LFT's Sent. af3 19:40 Edward Braxton, RN is Primary Nurse. rg5 19:40 Magnesium Sent. af3 19:40 NT PRO-BNP Sent. af3 19:40 PT-INR Sent. af3 19:40 Troponin HS Sent. af3 19:40 EKG done, by cook chill technician. af3 19:40 Inserted saline lock: 20 gauge in left antecubital area, using aseptic technique. Blood af3 collected. Flushed with 10 mL NS. 20:08 Triage completed. rg5 20:29 XRAY Chest (1 view) In Process Unspecified. EDMS 21:00 IV discontinued, bleeding controlled, No redness/swelling at site. Pressure dressing rg5 applied. 21:00 Provided Education on: POST ER CARE. rg5 Administered Medications: 20:50 Drug: Furosemide IVP 40 mg IVP once; give over 2 minutes Route: IVP; Site: left rg5 antecubital; 21:16 Follow up: Response: No adverse reaction rg5 20:50 Drug: HYDROmorphone IVP 1 mg IVP once Route: IVP; Site: left antecubital; rg5 21:16 Follow up: Response: No adverse reaction rg5 Medication: 19:30 VIS not applicable for this client. rg5 Outcome: 20:37 Discharge ordered by . sp3 21:00 Discharged to home ambulatory, rg5 21:00 Condition: stable rg5 21:00 Discharge instructions given to patient, Instructed on discharge instructions, follow up and referral plans. Demonstrated understanding of instructions, follow-up care, medications, Prescriptions given X 1, 21:18 Patient left the ED. rg5 Signatures: Dispatcher [employer] EDShayy Boo MD MD sp3 Ni Tilley Rommel, RN RN rg5 Trisha Anne3 Corrections: (The following items were deleted from the chart) 03/20 01:38 12 20:09 General: Appears rgKoki massey 03/20 01:42 01:39 Onset of symptoms was March 19, 2024 at 18:00 bryson massey
--- NOTE | 2024-03-19 20:38 | EDPHYS ---
Physician Documentation [facility] Name: Dennis Keating Age: 49 yrs Sex: Male : 1975 Arrival Date: 03/19/2024 Time: 19:01 Bed 17 Private MD: ED Physician Shayy Larios HPI: 03/19 19:37 This 49 yrs old Male presents to ER via Unassigned with complaints of shortness of sp3 breath and body pain. 19:37 48-year-old male with history of Crohn's disease, COPD, GA presents to the ED with sp3 chief complaint recurrent shortness of breath and body wide pain with peripheral edema. Patient does not have prior CHF history but states he "gets fluid overloaded". He denies any chest pain, headache, fever, back pain, abdominal pain, vomiting, diarrhea, rash, or any other signs or symptoms on ROS at this time.. Historical: - Allergies: 20:08 Aspirin; rg5 20:08 ketorolac tromethamine; rg5 20:08 PENICILLINS; rg5 20:08 Toradol; rg5 20:08 Ibuprofen; rg5 20:08 Cipro PO; rg5 - Home Meds: 20:08 Lasix 20 mg Oral tablet for EDEMA [Active]; Bumex Oral 2 mg daily [Active]; [place] rg5 10/325 Oral 1 tab twice a day [Active]; Trazodone Oral [Active]; lisinopril 10 mg Oral tablet [Active]; Adderall XR 30 mg Oral capsule 1 cap 2 times per day [Active]; albuterol sulfate 90 mcg/actuation Inhl HFA Aerosol Inhaler 2 inhalations as needed [Active]; - PMHx: 20:08 Back pain; rg5 - PSHx: 20:08 bowel resection; rg5 - Immunization history:: Adult Immunizations up to date. - Infectious Disease History:: Denies. - Social history:: Smoking status: Patient denies any tobacco usage or history of. ROS: 19:38 Constitutional: Negative for fever, chills, and weight loss, Eyes: Negative for injury, sp3 pain, redness, and discharge, ENT: Negative for injury, pain, and discharge, Neck: Negative for injury, pain, and swelling, Cardiovascular: Negative for chest pain, palpitations, and edema, Abdomen/GI: Negative for abdominal pain, nausea, vomiting, diarrhea, and constipation, Back: Negative for injury and pain, Skin: Negative for injury, rash, and discoloration, Neuro: Negative for headache, weakness, numbness, tingling, and seizure, Psych: Negative for depression, anxiety, suicide ideation, homicidal ideation, and hallucinations, Allergy/Immunology: Negative for hives, rash, and allergies, Endocrine: Negative for neck swelling, polydipsia, polyuria, polyphagia, and marked weight changes, Hematologic/Lymphatic: Negative for swollen nodes, abnormal bleeding, and unusual bruising, 19:38 All other systems are negative, Exam: 19:39 Constitutional: This is a well developed, well nourished patient who is awake, alert, sp3 and in no acute distress. Head/Face: Normocephalic, atraumatic. Eyes: Pupils equal round and reactive to light, extra-ocular motions intact. Lids and lashes normal. Conjunctiva and sclera are non-icteric and not injected. Cornea within normal limits. Periorbital areas with no swelling, redness, or edema. ENT: Nares patent. No nasal discharge, no septal abnormalities noted. External auditory canals are clear. Oropharynx with no redness, swelling, or masses, exudates, or evidence of obstruction, uvula midline. Mucous membranes moist. Neck: Trachea midline, no thyromegaly or masses palpated, and no cervical lymphadenopathy. Supple, full range of motion without nuchal rigidity, or vertebral point tenderness. No Meningismus. Chest/axilla: Normal chest wall appearance and motion. Nontender with no deformity. No lesions are appreciated. Cardiovascular: Regular rate and rhythm with a normal S1 and S2. No gallops, murmurs, or rubs. Normal PMI, no JVD. No pulse deficits. Respiratory: Lungs have equal breath sounds bilaterally, clear to auscultation and percussion. No rales, rhonchi or wheezes noted. No increased work of breathing, no retractions or nasal flaring. Abdomen/GI: Soft, non-tender, with normal bowel sounds. No distension or tympany. No guarding or rebound. No evidence of tenderness throughout. Back: No spinal tenderness. No costovertebral tenderness. Full range of motion. Skin: Warm, dry with normal turgor. Normal color with no rashes, no lesions, and no evidence of cellulitis. Neuro: Awake and alert, GCS 15, oriented to person, place, time, and situation. Cranial nerves II-XII grossly intact. Motor strength 5/5 in all extremities. Sensory grossly intact. Cerebellar exam normal. Normal gait. Psych: Awake, alert, with orientation to person, place and time. Behavior, mood, and affect are within normal limits. 19:39 Musculoskeletal/extremity: Mild peripheral edema diffuse without pitting.. 19:55 ECG was reviewed by the Attending Physician. EKG demonstrates normal sinus rhythm at 76 sp3 bpm with normal intervals, normal QRS, normal axis, normal ST/T-segment's without evidence of acute ischemia. Vital Signs: 19:59 BP 144 / 77; Pulse 82; Resp 13; Pulse Ox 97% on R/A; af3 21:00 BP 130 / 90; Pulse 87; Resp 17; Temp 98; Pulse Ox 100% on R/A; Pain 0/10; rg5 21:00 Pain Scale: Adult rg5 MDM: 19:25 Medical Screening Exam initiated sp3 19:41 Data reviewed: vital signs, nurses notes, lab test result(s), EKG, radiologic studies. sp3 ED course: 49-year-old male with PMH above now with shortness of breath. Differential diagnosis includes viral illness, fluid overload, acute coronary syndrome, pneumonia/bronchitis spectrum, chronic pain, among others. Workup will include EKG, chest x-ray and general labs and viral swabs. Disposition pending workup and patient course. Patient asking for pain medication however we will await labs to see what is indicated.. 20:36 ED course: BNP slightly elevated. Swabs are negative as his troponin and chemistries sp3 are normal. Will administer 40 mg of Lasix IV and 1 mg of Dilaudid IV with subsequent discharge home with refilling of his Lasix medication follow-up with his PCP.. 03/19 19:31 Order name: Basic Metabolic Panel; Complete Time: 20:33 sp3 03/19 19:31 Order name: CBC with Diff; Complete Time: 20:13 sp3 03/19 19:31 Order name: LFT's; Complete Time: 20:33 sp3 03/19 19:31 Order name: Magnesium; Complete Time: 20:33 sp3 03/19 19:31 Order name: NT PRO-BNP; Complete Time: 20:33 sp3 03/19 19:31 Order name: PT-INR; Complete Time: 20:13 sp3 03/19 19:31 Order name: Troponin HS; Complete Time: 20:33 sp3 03/19 19:37 Order name: SARS RAPID; Complete Time: 20:33 sp3 03/19 19:37 Order name: Flu; Complete Time: 20:33 sp3 03/19 19:31 Order name: XRAY Chest (1 view); Complete Time: 20:33 sp3 03/19 19:31 Order name: Cardiac monitoring; Complete Time: 19:38 sp3 03/19 19:31 Order name: EKG - Nurse/Tech; Complete Time: 19:38 sp3 03/19 19:31 Order name: IV Saline Lock; Complete Time: 19:38 sp3 03/19 19:31 Order name: Labs collected and sent; Complete Time: 19:38 sp3 03/19 19:31 Order name: O2 Per Protocol; Complete Time: 19:38 sp3 03/19 19:31 Order name: O2 Sat Monitoring; Complete Time: 19:38 sp3 03/19 19:31 Order name: Vital Signs; Complete Time: 19:59 sp3 Administered Medications: 20:50 Drug: Furosemide IVP 40 mg IVP once; give over 2 minutes Route: IVP; Site: left rg5 antecubital; 21:16 Follow up: Response: No adverse reaction rg5 20:50 Drug: HYDROmorphone IVP 1 mg IVP once Route: IVP; Site: left antecubital; rg5 21:16 Follow up: Response: No adverse reaction rg5 Disposition Summary: 03/19/24 20:37 Discharge Ordered Notes: Location: Home sp3 Condition: Stable sp3 Diagnosis - Peripheral edema, dyspnea, body pain sp3 Followup: sp3 - With: Private Physician - When: Upon discharge from the Emergency Department - Reason: Continuance of care Discharge Instructions: - Discharge Summary Sheet sp3 - Peripheral Edema sp3 Forms: - Medication Reconciliation Form sp3 - Antibiotic Education sp3 - Prescription Opioid Use sp3 - Patient Portal Instructions sp3 - Leadership Thank You Letter sp3 Prescriptions: - Lasix 40 mg Oral tablet - take 1 tablet ORAL route 2 times per day for 30 days; 60 tablet; Refills: 0, sp3 Product Selection Permitted Signatures: Dispatcher [employer] EDMS Shayy Larios MD MD sp3 Edward Braxton RN RN rg5 Corrections: (The following items were deleted from the chart) 19:32 19:32 Chest Single View+RAD.RAD.BRZ ordered. EDMS EDMS 19:38 19:38 SARS-COV-2 Antigen Rapid+I.LAB.BRZ ordered. EDMS EDMS 19:38 19:38 Influenza Screen (A \\T\\ B)+BA.LAB.BRZ ordered. EDMS EDMS
[2024-03-19] MEDS ORDERED: FUROSEMIDE 40 MG/4 ML VIAL ONE (20:44)
[2024-03-19] MEDS ORDERED: HYDROMORPHONE HCL 1 MG/ML INJ ONE (20:44)
[2024-03-20 01:46] VITALS: BP 130/90; TEMP 98; O2SAT 100
--- NOTE | 2024-03-20 10:17 | EKG ---
Test Date: 2024-03-19 Test Time: 19:35:06 Lean Manager: AF MEASUREMENT RESULTS: Intervals: Rate: 76 DE: 174 QRSD: 94 QT: 402 QTc: 452 [place]: P: 64 DE: 174 QRS: 44 T: 44 INTERPRETIVE STATEMENTS: Normal sinus rhythm Normal ECG Compared to ECG 10/31/2023 14:07:51 Left bundle-branch block no longer present Electronically Signed On 03-20-24 10:17:12 DRYWALL CARRIER by Mati Figueredo
== END 2024-03-19 21:18 | disposition home or self-care (01) ==
LOC: ER 19:01
DX: R60.9 Edema, unspecified (principal); R06.00 Dyspnea, unspecified; R52 Pain, unspecified; J44.9 Chronic obstructive pulmonary disease, unspecified; I50.9 Heart failure, unspecified; Z11.52 Encounter for screening for COVID-19
CPT/HCPCS: 93005; 85025; 80048; 36415; 83735; 85610; 80076; 84484; 83880; 87804 ×2; 71045; 96375; 96374; 99285; 87811; J1940; J1171

== ENCOUNTER 2024-04-05 23:48 | Emergency (ER) | payer OTHER ==
[2024-04-06] MEDS ORDERED: NA CHLORIDE 0.9% 1,000 ML ONE (00:34)
[2024-04-06 00:58] LABS: Absolute Basophils 0.1 K/uL (0-0.5); Absolute Eosinophils 0.2 K/uL (0-0.5); Absolute Lymphocytes (CBC) 1.1 K/uL (0.7-4.9); Absolute Monocytes 0.7 K/uL (0.1-1.3); Absolute Neutrophil 4.5 K/uL (1.8-8.0); Basophils % 1.1 % (0-1.3); Eosinophils % 2.6 % (0-4.4); Hematocrit 43.6 % (39.6-49.0); Hemoglobin 14.2 g/dL (13.6-17.9); Lymphocytes % 16.4 % (15.3-44.8); MCH 28.4 pg (27.0-35.0); MCHC 32.6 g/dL (32.0-36.0); MCV 87.2 fL (80-100); MPV 9.5 fL (7.6-11.3); Monocytes % 11.4 % (3.3-12.3); Neutrophils % 68.5 % (41.7-73.7); Platelets 179 thou/uL (152-406); Red Cell Distribution Width 13.5 % (12.1-15.2)
[2024-04-06 01:06] LABS: Albumin 3.2 g/dL (3.4-5.0); Albumin/Globulin Ratio 0.8 (1.1-1.8); Anion Gap 6.7 mEq/L (5.0-15.0); Bilirubin Total 0.5 mg/dL (0.2-1.0); Potassium 3.7 mEq/L (3.5-5.1); Protein, Total 7.2 g/dL (6.4-8.2)
[2024-04-06] MEDS ORDERED: ONDANSETRON 4 MG/2 ML VIAL ONE (01:10)
[2024-04-06] MEDS ORDERED: NA CHLORIDE 0.9% 100 ML ONE (01:11)
[2024-04-06] MEDS ORDERED: METHOCARBAMOL 1,000 MG/10 ML VIAL ONE (01:11)
[2024-04-06] MEDS ORDERED: ACETAMINOPHEN 500 MG TAB ONE (01:11)
[2024-04-06] MEDS ORDERED: MORPHINE 4 MG/ML SYR ONE (01:11)
[2024-04-06] MEDS ORDERED: ACETAMINOPHEN 160 MG/5 ML UCUP ONE (01:18)
[2024-04-06 03:23] LABS: Sqamous Epithelial None Seen /HPF (None Seen); Urine Bacteria None Seen /HPF (<20); Urine Color Yellow (Yellow); Urine Culture Reflex Order NOT NEEDED; Urine Microscopic Reflex YN ORDER UMIC; Urine Mucus Slight /HPF (None Seen); Urine RBC <5 /HPF (None Seen); Urine WBC <5 /HPF (<5)
[2024-04-06 03:24] LABS: Specific Gravity 1.027 (1.005-1.030); Urine Clarity Clear (Clear)
[2024-04-06 03:25] LABS: Urine Bilirubin NEGATIVE (Negative); Urine Blood Negative (Negative); Urine Glucose Negative (Negative); Urine Ketones NEGATIVE (Negative); Urine pH 6.5 (5.0-7.0)
[2024-04-06 03:26] LABS: Urine Nitrite NEGATIVE (Negative); Urine Protein TRACE (Negative); Urine Urobilinogen 3+ (Normal)
--- NOTE | 2024-04-06 05:06 | ER ---
Nurse's Notes [facility] Name: Dennis Keating Age: 49 yrs Sex: Male : 1975 Arrival Date: 04/05/2024 Time: 23:48 Bed 20 Private MD: Diagnosis: Acute Viral Bronchitis , Post Operative Abdominal Pain Presentation: 04/06 00:00 Chief complaint: Patient states: Pt reports having a gastric sleeve done on Wednesday. kd3 Pt reports having cold sweats, cough, abdominal pain, body aches, 102.1 fever at home that started this morning. PT states his provider told him not to take any medications orally and to go to the ER. Coronavirus screen: Vaccine status: Patient reports receiving the 2nd dose of the covid vaccine. Ebola Screen: No symptoms or risks identified at this time. Initial Sepsis Screen: Does the patient meet any 2 criteria? No. Patient's initial sepsis screen is negative. Does the patient have a suspected source of infection? No. Patient's initial sepsis screen is negative. Risk Assessment: Do you want to hurt yourself or someone else? Patient reports no desire to harm self or others. Onset of symptoms was April 06, 2024. 00:00 Method Of Arrival: Ambulatory kd3 00:00 Acuity: AMNA 3 kd3 Triage Assessment: 00:03 General: Appears uncomfortable, Behavior is calm, cooperative. Pain: Complains of pain kd3 in abdomen. GI: Abdomen is non-distended. Historical: - Allergies: 00:03 Aspirin; kd3 00:03 Cipro PO; kd3 00:03 Ibuprofen; kd3 00:03 ketorolac tromethamine; kd3 00:03 PENICILLINS; kd3 00:03 Toradol; kd3 - PMHx: 00:03 Back pain; Diverticulitis; CHRONS; Myocardial infarction; Chronic obstructive lung kd3 disease; Congestive heart failure; - PSHx: 00:03 Ankle; testicle; hand; foot; bowel resection; knee; kd3 - Immunization history:: Adult Immunizations up to date. - Infectious Disease History:: Denies. - Social history:: Smoking status: Patient/guardian denies using tobacco, the patient reports quitting approximately 1 years ago. - Family history:: not pertinent. Screenin:13 [facility] ED Fall Risk Assessment (Adult) History of falling in the last 3 months, kd3 including since admission No falls in past 3 months (0 pts) Confusion or Disorientation No (0 pts) Intoxicated or Sedated No (0 pts) Impaired Gait No (0 pts) Mobility Assist Device Used No (0 pt) Altered Elimination No (0 pt) Score/Fall Risk Level 0 - 2 = Low Risk Oriented to surroundings. Abuse screen: Denies threats or abuse. Denies injuries from another. Nutritional screening: No deficits noted. Tuberculosis screening: No symptoms or risk factors identified. Assessment: 00:00 General: Appears in no apparent distress. comfortable, Behavior is calm, cooperative, jb4 appropriate for age. Pain: Complains of pain in abdomen Pain does not radiate. Pain currently is 10 out of 10 on a pain scale. Neuro: Level of Consciousness is awake, alert, obeys commands, Oriented to person, place, time, situation. Cardiovascular: Patient's skin is warm and dry. Respiratory: Airway is patent Respiratory effort is even, unlabored, Respiratory pattern is regular, symmetrical. GI: Abdomen is flat, Reports lower abdominal pain, upper abdominal pain. : No signs and/or symptoms were reported regarding the genitourinary system. Derm: Skin is intact, Skin is pink, warm \T\ dry. Musculoskeletal: Circulation, motion, and sensation intact. Range of motion: intact in all extremities. 01:30 Reassessment: Patient appears in no apparent distress at this time. Patient and/or jb4 family updated on plan of care and expected duration. Pain level reassessed. Patient is alert, oriented x 3, equal unlabored respirations, skin warm/dry/pink. 02:30 Reassessment: Patient appears in no apparent distress at this time. Patient and/or jb4 family updated on plan of care and expected duration. Pain level reassessed. Patient is alert, oriented x 3, equal unlabored respirations, skin warm/dry/pink. 03:24 Reassessment: Patient appears in no apparent distress at this time. Patient and/or jb4 family updated on plan of care and expected duration. Pain level reassessed. Patient is alert, oriented x 3, equal unlabored respirations, skin warm/dry/pink. Patient states feeling better. 05:13 GI: Bowel sounds present X 4 quads. Abd is soft X 4 quads. kd3 05:14 General: Pt discharged. Awaiting disk with his scans on it. . kd3 Vital Signs: 04/05 23:59 Pulse 74; Resp 18; Temp 99.5(O); Pulse Ox 98% ; Weight 161.48 kg; Height 6 ft. 3 in. ; kd3 Pain 9/10; 04/06 00:04 BP 137 / 105; kd3 00:07 BP 101 / 84; kd3 01:45 BP 125 / 79; Pulse 87; Resp 16; Pulse Ox 95% on R/A; jb4 02:45 BP 111 / 71; Pulse 88; Resp 16; Pulse Ox 94% on R/A; jb4 05:15 BP 115 / 78; Pulse 74; Resp 18; Pulse Ox 98% on R/A; kd3 04/05 23:59 Body Mass Index 44.50 (161.48 kg, 190.5 cm) kd3 04/05 23:59 Pain Scale: Adult kd3 Dre Coma Score: 23:33 Eye Response: spontaneous(4). Motor Response: obeys commands(6). Verbal Response: sp4 oriented(5). Total: 15. ED Course: 04/05 23:51 Patient arrived in ED. mr 04/06 00:03 Triage completed. kd3 00:03 Arm band placed on right wrist. kd3 00:16 Carmine Coy MD is Attending Physician. sp4 00:29 Annalee Sam, ARAMIS is Primary Nurse. kd3 00:29 Inserted saline lock: 20 gauge in left antecubital area, using aseptic technique. Blood af3 collected. Flushed with 10 mL NS. 03:06 CT Abd/Pelvis - IV Contrast Only In Process Unspecified. EDMS 05:13 No provider procedures requiring assistance completed. IV discontinued, intact, kd3 bleeding controlled, No redness/swelling at site. Pressure dressing applied. 05:14 Patient has correct armband on for positive identification. Provided Education on: kd3 medications . Administered Medications: 00:37 Drug: NS 0.9% IV 1000 ml IV at 1 bolus Per protocol; to be given as a bolus over 60 jb4 minutes Route: IV; Rate: 1 bolus; Site: left antecubital; 01:41 Drug: morphine IVP or IV 8 mg IVP once over 4 mins Route: IVP; Infused Over: 4 mins; jb4 Site: left antecubital; 01:41 Drug: Ondansetron IVP 8 mg IVP once; over 2 minutes Route: IVP; Site: left antecubital; jb4 01:41 Drug: Acetaminophen PO 1000 mg PO once Route: PO; jb4 01:41 Drug: Methocarbamol IVPB 1 grams IVPB once over 1 hrs; (mix in NS 100 mL) Route: IVPB; jb4 Infused Over: 1 hrs; Site: left antecubital; Medication: 05:14 VIS not applicable for this client. kd3 Outcome: 05:05 Discharge ordered by . naila 05:13 Discharged to home ambulatory, kd3 05:13 Condition: stable 05:13 Discharge instructions given to patient, Instructed on discharge instructions, follow up and referral plans. Demonstrated understanding of instructions, follow-up care, medications, Prescriptions given X 2, 05:16 Patient left the ED. kd3 Signatures: Dispatcher [employer] EDUT Deneen Casey, Reg Reg Dennis Whitley RN RN jb4 Annalee Sam RN RN kd3 Carmine Coy MD MD sp4 Trisha Anne Danni
--- NOTE | 2024-04-06 05:06 | EDPHYS ---
Physician Documentation [facility] Name: Dennis Keating Age: 49 yrs Sex: Male : 1975 Arrival Date: 04/05/2024 Time: 23:48 Bed 20 Private MD: ED Physician Carmine Coy HPI: 04/06 05:01 This 49 yrs old Male presents to ER via Ambulatory with complaints of Fever, sp4 Cough, Abdominal Pain. 23:33 Very pleasant 49-year-old male presents with fever cough and abdominal discomfort. sp4 Patient has had history of recent gastric bypass 2 weeks ago. Patient reports fever up to 102 at home abdominal pain and cough. Denied any vomiting. Historical: - Allergies: 00:03 Aspirin; kd3 00:03 Cipro PO; kd3 00:03 Ibuprofen; kd3 00:03 ketorolac tromethamine; kd3 00:03 PENICILLINS; kd3 00:03 Toradol; kd3 - PMHx: 00:03 Back pain; Diverticulitis; CHRONS; Myocardial infarction; Chronic obstructive lung kd3 disease; Congestive heart failure; - PSHx: 00:03 Ankle; testicle; hand; foot; bowel resection; knee; kd3 - Immunization history:: Adult Immunizations up to date. - Infectious Disease History:: Denies. - Social history:: Smoking status: Patient/guardian denies using tobacco, the patient reports quitting approximately 1 years ago. - Family history:: not pertinent. ROS: 23:33 Constitutional: Positive fever, positive chills, positive cough, positive abdominal sp4 pain 23:33 All other systems are negative, Exam: 23:33 Constitutional: This is a well developed, well nourished patient who is awake, alert, sp4 and in no acute distress. Head/Face: Normocephalic, atraumatic. Eyes: Pupils equal round and reactive to light, extra-ocular motions intact. Lids and lashes normal. Conjunctiva and sclera are not injected. Cornea within normal limits. Periorbital areas with no swelling, redness, or edema. ENT: Nares patent. No nasal discharge, no septal abnormalities noted. Tympanic membranes are normal and external auditory canals are clear. Oropharynx with no redness, swelling, or masses, exudates, or evidence of obstruction, uvula midline. Mucous membranes moist. Neck: Trachea midline, no thyromegaly or masses palpated, and no cervical lymphadenopathy. Supple, full range of motion without nuchal rigidity, or vertebral point tenderness. Chest/axilla: Normal chest wall appearance and motion. Nontender with no deformity. No lesions are appreciated. Cardiovascular: Regular rate and rhythm with a normal S1 and S2. No gallops, murmurs, or rubs. Normal PMI, no JVD. No pulse deficits. Respiratory: Lungs have equal breath sounds bilaterally, clear to auscultation and percussion. No rales, rhonchi or wheezes noted. No increased work of breathing, no retractions or nasal flaring. Abdomen/GI: Soft, with normal bowel sounds. No distension or tympany. No guarding or rebound -multiple scars to the lower abdomen, acute postop incisions under Dermabond from recent laparoscopic gastric bypass Back: No spinal tenderness. No costovertebral tenderness. Skin: Warm, dry with normal turgor. Normal color with no rashes, no lesions, and no evidence of cellulitis. MS/ Extremity: Pulses equal, no cyanosis. Neurovascular intact. Full, normal range of motion. Neuro: Awake and alert, GCS 15, oriented to person, place, time, and situation. Cranial nerves II-XII grossly intact. Motor strength 5/5 in all extremities. Sensory grossly intact. Psych: Awake, alert, with orientation to person, place and time. Behavior, mood, and affect are within normal limits Vital Signs: 04/05 23:59 Pulse 74; Resp 18; Temp 99.5(O); Pulse Ox 98% ; Weight 161.48 kg; Height 6 ft. 3 in. ; kd3 Pain 9/10; 04/06 00:04 BP 137 / 105; kd3 00:07 BP 101 / 84; kd3 01:45 BP 125 / 79; Pulse 87; Resp 16; Pulse Ox 95% on R/A; jb4 02:45 BP 111 / 71; Pulse 88; Resp 16; Pulse Ox 94% on R/A; jb4 05:15 BP 115 / 78; Pulse 74; Resp 18; Pulse Ox 98% on R/A; kd3 04/05 23:59 Body Mass Index 44.50 (161.48 kg, 190.5 cm) kd3 04/05 23:59 Pain Scale: Adult kd3 Bronson Coma Score: 23:33 Eye Response: spontaneous(4). Motor Response: obeys commands(6). Verbal Response: sp4 oriented(5). Total: 15. MDM: 00:17 Medical Screening Exam initiated sp4 05:01 ED course: CLINICAL HISTORY: Abdominal pain. COMPARISON: XR Abdomen 12/03/2021, sp4 CTAbdomen pelvis 12/02/2021. TECHNIQUE: CTABDOMEN PELVIS WITH IV CONTRAST on 04/06/2024 2:30 AM ELECTRICAL TRYOUT PERSON This exam was performed according to our departmental dose-optimization program, which includes automated exposure control, adjustment of the mA and/or kV according to patient size and/or use of iterative reconstruction technique. FINDINGS: Lower lungs are clear. Abdomen: The liver is normal in appearance. There is no biliary dilatation. There are postoperative changes of the greater curvature of the stomach. Gallbladder is normal in appearance. The pancreas and spleen are normal in appearance. The adrenal glands and kidneys are unremarkable. Abdominal aorta is normal in course and caliber without aneurysm. There is no free air. There is no retroperitoneal adenopathy. There is mild stranding of the midline supraumbilical abdominal wall subcutaneous fat with associated tiny bubble of air. Pelvis: Sigmoid colon resection and anastomosis was performed. Urinary bladder is unremarkable. There is no free fluid. Appendix is normal. Skeleton: There are no acute osseous findings. No suspicious bony lesions. IMPRESSION: No definite acute inflammatory process. Mild stranding of the midline supraumbilical abdominal wall subcutaneous fat with associated tiny bubble of air. This may be secondary to recent surgery. . 23:33 Differential diagnosis: viral Infection, bacterial infection, bronchitis, pneumonia sp4 gastroenteritis. Data reviewed: vital signs, nurses notes, lab test result(s), radiologic studies, CT scan. Consideration of Admission/Observation Escalation of care including admission/observation considered. ED course: Patient has improved symptomatically. Influenza is negative. CBC unremarkable. Patient stable for discharge home.. 04/06 00:16 Order name: Influenza Screen (a \T\ B); Complete Time: 03:10 sp4 04/06 00:17 Order name: CBC with Diff; Complete Time: 03:10 sp4 04/06 00:17 Order name: CMP; Complete Time: 03:10 sp4 04/06 00:17 Order name: Lipase; Complete Time: 03:10 sp4 04/06 00:17 Order name: Urinalysis w/ reflexes; Complete Time: 04:10 sp4 04/06 02:30 Order name: CT Abd/Pelvis - IV Contrast Only sp4 04/06 00:17 Order name: IV Saline Lock; Complete Time: 00:29 sp4 04/06 00:17 Order name: Labs collected and sent; Complete Time: 00:29 sp4 Administered Medications: 00:37 Drug: NS 0.9% IV 1000 ml IV at 1 bolus Per protocol; to be given as a bolus over 60 jb4 minutes Route: IV; Rate: 1 bolus; Site: left antecubital; 01:41 Drug: morphine IVP or IV 8 mg IVP once over 4 mins Route: IVP; Infused Over: 4 mins; jb4 Site: left antecubital; 01:41 Drug: Ondansetron IVP 8 mg IVP once; over 2 minutes Route: IVP; Site: left antecubital; jb4 01:41 Drug: Acetaminophen PO 1000 mg PO once Route: PO; jb4 01:41 Drug: Methocarbamol IVPB 1 grams IVPB once over 1 hrs; (mix in NS 100 mL) Route: IVPB; jb4 Infused Over: 1 hrs; Site: left antecubital; Disposition Summary: 04/06/24 05:05 Discharge Ordered Notes: Location: Home sp4 Problem: new sp4 Symptoms: have improved sp4 Condition: Stable sp4 Diagnosis - Acute Viral Bronchitis , Post Operative Abdominal Pain sp4 Followup: sp4 - With: Private Physician - When: Today - Reason: Recheck today's complaints Discharge Instructions: - Discharge Summary Sheet sp4 - Acute Bronchitis, Adult, [id number] sp4 Forms: - Patient Portal Instructions sp4 Prescriptions: - dextromethorphan HBr 15 mg/5 mL Oral liquid - take 15 milliliter ORAL route every 6 hours PRN cough; 120 milliliter; Refills: sp4 0, Product Selection Permitted - ondansetron HCl 4 mg/5 mL Oral solution - take 10 milliliter ORAL route 3 times per day PRN nausea; 89 milliliter; sp4 Refills: 0, Product Selection Permitted Signatures: Dispatcher [employer] Dennis Mckenzie RN RN jb4 Annalee Sam RN RN kd3 Carmine Coy MD MD sp4 Corrections: (The following items were deleted from the chart) 00:16 00:16 Influenza Screen (A \T\ B)+BA.LAB.VICKI ordered. EDMS EDMS
--- NOTE | 2024-04-06 05:25 | RAD REPORT ---
CLINICAL HISTORY: Abdominal pain. COMPARISON: XR Abdomen 12/03/2021, CT Abdomen pelvis 12/02/2021. TECHNIQUE: CT ABDOMEN PELVIS WITH IV CONTRAST on 04/06/2024 2:30 AM DIE MAKER This exam was performed according to our departmental dose-optimization program, which includes autom ated exposure control, adjustment of the mA and/or kV according to patient size and/or use of iterative reconstruction technique. FINDINGS: Lower lungs are clear. Abdomen: The liver is normal in appearance. There is no biliary dilatation. There are postoperative c hanges of the greater curvature of the stomach. Gallbladder is normal in appearance. The pancreas and spleen are normal in appearance. The adrenal glands and kidneys are unremarkable. Abdominal aorta is normal in course and caliber without aneurysm. There is no free air. There is no r etroperitoneal adenopathy. There is mild stranding of the midline supraumbilical abdominal wall subcutaneous fat with associated tiny bubble of air. Pelvis: Sigmoid colon resection and anastomosis was performed. Urinary bladder is unremarkable. There is no free fluid. Appendix is normal. Skeleton: There are no acute osseous findings. No suspicious bony lesions. IMPRESSION: No definite acute inflammatory process. Mild stranding of the midline supraumbilical abdominal wall subcutaneous fat with associated tiny jeanette ble of air. This may be secondary to recent surgery. Electronically signed by: Bradley Robles MD 04/06/2024 04:39 AM DIE MAKER Due to temporary technical issues with the PACS/Senseg reporting system, reports are being quirino d by the in-house radiologist without review as a courtesy to ensure prompt reporting the interpreting radiologist is fully responsible for the content of the report. Transcribed Date/Time: 04/06/2024 5:24 AM
[2024-04-06 05:32] VITALS: TEMP 99.5
[2024-04-06 05:48] VITALS: BP 115/78; O2SAT 98
== END 2024-04-06 05:16 | disposition home or self-care (01) ==
LOC: ER 23:48
DX: J20.8 Acute bronchitis due to other specified organisms (principal); G89.18 Other acute postprocedural pain; R10.9 Unspecified abdominal pain; Z87.891 Personal history of nicotine dependence; Z88.0 Allergy status to penicillin; Z88.8 Allergy status to other drugs, medicaments and biological substances
CPT/HCPCS: 85025; 81001; 36415; 83690; 80053; 87804 ×2; 74177; 96375; 96374; 99284; Q9967; J2405; J2800; J7030

== ENCOUNTER 2024-07-01 20:34 | Emergency (ER) | payer OTHER ==
--- NOTE | 2024-07-01 21:45 | RAD REPORT ---
EXAM: Right upper quadrant ultrasound. CLINICAL HISTORY: ABD PAIN COMPARISON: None. FINDINGS: Gallbladder: Normal. Bile ducts: No intrahepatic or extrahepatic biliary dilatation. Common bile duct measures 3 mm. Limited imaging of the liver shows no concerning finding. IMPRESSION: Unremarkable exam.
--- NOTE | 2024-07-01 22:26 | RAD REPORT ---
EXAMINATION: ONE VIEW CHEST XR CLINICAL INDICATION: right upper abdomen pain TECHNIQUE: Frontal chest projection is submitted. Examination is limited by patient positioning and t echnique. COMPARISON: 03/19/2024, 10/31/2023 FINDINGS: The lungs are well inflated and clear. The heart is upper limit of normal in size. No displaced fract ures identified. IMPRESSION: No acute intrathoracic abnormalities.
[2024-07-01] MEDS ORDERED: HYDROMORPHONE HCL 1 MG/ML INJ ONE (23:14)
[2024-07-01] MEDS ORDERED: METOCLOPRAMIDE 10 MG/2mL INJ ONE (23:14)
[2024-07-02 00:56] LABS: Absolute Basophils 0.1 K/uL (0-0.5); Absolute Eosinophils 0.1 K/uL (0-0.5); Absolute Monocytes 0.6 K/uL (0.1-1.3); Absolute Neutrophil 4.3 K/uL (1.8-8.0); Basophils % 1.2 % (0-1.3); Eosinophils % 1.8 % (0-4.4); Hematocrit 45.3 % (39.6-49.0); Hemoglobin 15.2 g/dL (13.6-17.9); Lymphocytes % 36.6 % (15.3-44.8); MCH 28.3 pg (27.0-35.0); MCHC 33.6 g/dL (32.0-36.0); MCV 84.2 fL (80-100); Monocytes % 7.6 % (3.3-12.3); Neutrophils % 52.8 % (41.7-73.7); Platelets 171 thou/uL (152-406); RBC Red Blood Cell Count 5.38 M/uL (4.33-5.43)
[2024-07-02 01:03] LABS: Specific Gravity > 1.030 (1.005-1.030); Sqamous Epithelial <5 /HPF (None Seen); Urine Bacteria <20 /HPF (<20); Urine Bilirubin NEGATIVE (Negative); Urine Blood Negative (Negative); Urine Clarity Clear (Clear); Urine Color Yellow (Yellow); Urine Culture Reflex Order NOT NEEDED; Urine Glucose NEGATIVE (Negative); Urine Ketones NEGATIVE (Negative); Urine Microscopic Reflex YN ORDER UMIC; Urine Mucus 4+ /HPF (None Seen); Urine Nitrite NEGATIVE (Negative); Urine Protein 1+ (Negative); Urine RBC None Seen /HPF (None Seen); Urine Urobilinogen 1+ (Normal); Urine WBC <5 /HPF (<5); Urine pH 5.5 (5.0-7.0)
[2024-07-02 01:12] LABS: Albumin 3.4 g/dL (3.4-5.0); Albumin/Globulin Ratio 0.9 (1.1-1.8); Anion Gap 9.8 mEq/L (5.0-15.0); Bilirubin Total 0.6 mg/dL (0.2-1.0); Potassium 3.8 mEq/L (3.5-5.1); Protein, Total 7.4 g/dL (6.4-8.2)
[2024-07-02] MEDS ORDERED: METHOCARBAMOL 1,000 MG/10 ML VIAL ONE (01:44)
[2024-07-02] MEDS ORDERED: ONDANSETRON 4 MG/2 ML VIAL ONE (01:44)
[2024-07-02] MEDS ORDERED: NA CHLORIDE 0.9% 100 ML ONE (01:45)
[2024-07-02] MEDS ORDERED: FENTANYL CITR 100 MCG/2 ML ONE (01:45)
--- NOTE | 2024-07-02 01:50 | RAD REPORT ---
EXAM DESCRIPTION: Abdomen Pelvis Wo Contrast CLINICAL HISTORY: 49 years Male, ABD PAIN TECHNIQUE: Helical CT axial images are obtained from the lung bases to the pubic symphysis without IV contrast. No oral contrast was administered. Multiplanar reconstruction. This exam was performed according to our departmental dose-optimization program, which includes automated exposure control, a djustment of the mA and/or kV according to patient size and/or use of iterative reconstruction technique. COMPARISON: None. FINDINGS: LUNG BASES: No basilar consolidation or effusions. LIVER: Normal in size. Normal attenuation. No focal masses. HEPATOBILIARY: Normal-appearing gallbladder. No intra- or extrahepatic ductal dilatation. SPLEEN: Normal size. PANCREAS: Normal size and contour. No focal mass. ADRENAL GLANDS: Normal size. No adrenal masses. KIDNEYS: Bilateral kidneys are normal in size without obstructing calculi or hydronephrosis. No nep hrolithiasis. No significant cysts are present. BOWEL AND MESENTERY: Status post sleeve gastrectomy. Status post sigmoid colon surgery. No small or l arge bowel dilatation. Descending colon diverticulosis. Normal appendix. No abnormal mesenteric lymphadenopathy. No free fluid or pneumoperitoneum. RETROPERITONEUM: Normal caliber abdominal aorta without aneurysm. No abnormal retroperitoneal lymphad enopathy. PELVIS: Urinary bladder is suboptimally distended. Uterus and adnexal regions are unremarkable. ABDOMINAL WALL: The abdominal wall is intact. BONES: No suspicious osseous lytic or blastic lesions seen. IMPRESSION: 1. No acute intra-abdominal or pelvic disease. 2. Status post sleeve gastrectomy and sigmoid colon surgery. 3. Descending colon diverticulosis without diverticulitis. Electronically signed by: David Hugo MD 07/02/2024 01:16 AM [facility] Due to temporary technical issues with the PACS/CREOpoint reporting system, reports are being quirino d by the in-house radiologist without review as a courtesy to ensure prompt reporting the interpreting radiologist is fully responsible for the content of the report. Transcribed Date/Time: 07/02/2024 1:50 AM
--- NOTE | 2024-07-02 01:58 | ER ---
Nurse's Notes [facility] Name: Dennis Keating Age: 49 yrs Sex: Male : 1975 Arrival Date: 07/01/2024 Time: 20:34 Bed 20 Private MD: Diagnosis: Upper abdominal pain, unspecified Presentation: 07/01 20:51 Chief complaint: Patient states: Sudden sharp pain in right side of abd 1 hr ago. bm8 Coronavirus screen: Vaccine status: At this time, the client does not indicate any symptoms associated with coronavirus-19. Ebola Screen: Patient negative for fever greater than or equal to 101.5 degrees Fahrenheit, and additional compatible Ebola Virus Disease symptoms Patient denies exposure to infectious person. Patient denies travel to an Ebola-affected area in the 21 days before illness onset. No symptoms or risks identified at this time. Initial Sepsis Screen: Does the patient meet any 2 criteria? No. Patient's initial sepsis screen is negative. Does the patient have a suspected source of infection? No. Patient's initial sepsis screen is negative. Risk Assessment: Do you want to hurt yourself or someone else?. Onset of symptoms was July 01, 2024 at 19:00. 20:51 Method Of Arrival: Ambulatory bm8 20:51 Acuity: AMNA 3 bm8 Triage Assessment: 20:53 General: Appears in no apparent distress. uncomfortable, Behavior is calm, cooperative, bm8 appropriate for age. Pain: Complains of pain in anterior aspect of right lateral abdomen and right upper quadrant Pain radiates to abdomen Pain currently is 10 out of 10 on a pain scale. Quality of pain is described as sharp. EENT: No deficits noted. No signs and/or symptoms were reported regarding the EENT system. Neuro: No deficits noted. Level of Consciousness is awake, alert, obeys commands, Oriented to person, place, time, situation, Appropriate for age. Cardiovascular: Denies chest pain, Heart tones S1 S2 present Capillary refill < 3 seconds in bilateral fingers Patient's skin is warm and dry. Respiratory: Airway is patent Trachea midline Respiratory effort is even, unlabored, Respiratory pattern is regular, symmetrical, Breath sounds are clear bilaterally. GI: Abdomen is round distended, Bowel sounds present X 4 quads. Abdomen is tender to palpation in anterior aspect of right lateral abdomen and right upper quadrant Reports upper abdominal pain, nausea, Pain is 10 out of 10 on a pain scale. : No signs and/or symptoms were reported regarding the genitourinary system. Derm: No signs and/or symptoms reported regarding the dermatologic system. Musculoskeletal: No signs and/or symptoms reported regarding the musculoskeletal system. Historical: - Allergies: 20:53 Aspirin; bm8 20:53 Cipro PO; bm8 20:53 Ibuprofen; bm8 20:53 ketorolac tromethamine; bm8 20:53 PENICILLINS; bm8 20:53 Toradol; bm8 - Home Meds: 20:53 Adderall XR 30 mg Oral capsule 1 cap 2 times per day [Active]; albuterol sulfate 90 bm8 mcg/actuation Inhl HFA Aerosol Inhaler 2 inhalations as needed [Active]; Bumex Oral 2 mg daily [Active]; Lasix 20 mg Oral tablet for EDEMA [Active]; lisinopril 10 mg Oral tablet [Active]; [place] 10/325 Oral 1 tab twice a day [Active]; Trazodone Oral [Active]; - PMHx: 20:53 Back pain; Chronic obstructive lung disease; CHRONS; Congestive heart failure; bm8 Diverticulitis; Myocardial infarction; - PSHx: 20:53 Ankle; foot; bowel resection; hand; knee; testicle; bm8 - Immunization history:: Adult Immunizations up to date. - Infectious Disease History:: Denies. - Social history:: Smoking status: unknown. Screenin/16 00:09 [facility] ED Fall Risk Assessment (Adult) History of falling in the last 3 months, lg3 including since admission No falls in past 3 months (0 pts) Confusion or Disorientation No (0 pts) Intoxicated or Sedated No (0 pts) Impaired Gait No (0 pts) Mobility Assist Device Used No (0 pt) Altered Elimination No (0 pt) Score/Fall Risk Level 0 - 2 = Low Risk Oriented to surroundings, Maintained a safe environment, Educated pt \T\ family on fall prevention, incl call for assistance when getting out of bed, Assessed \T\ reinforced patient's understanding of fall precautions. Abuse screen: Denies threats or abuse. Denies injuries from another. Nutritional screening: No deficits noted. Tuberculosis screening: No symptoms or risk factors identified. Assessment: 00:09 General: Appears in no apparent distress. uncomfortable, Behavior is calm, cooperative. lg3 Pain: Complains of pain in right upper quadrant. Neuro: No deficits noted. Matos Agitation-Sedation Scale (RASS): 0 - Alert and Calm Level of Consciousness is awake, alert, obeys commands, Oriented to person, place, time, situation. Cardiovascular: No deficits noted. Denies chest pain, shortness of breath, Capillary refill < 3 seconds Clubbing of nail beds is absent JVD is absent Patient's skin is warm and dry. Respiratory: No deficits noted. Airway is patent Respiratory effort is even, unlabored, Respiratory pattern is regular, symmetrical. GI: Abdomen is round non-distended, obese, Bowel sounds present X 4 quads. Abd is soft X 4 quads Abdomen is tender to palpation in right upper quadrant and right lower quadrant Reports lower abdominal pain, upper abdominal pain, cramping. : No signs and/or symptoms were reported regarding the genitourinary system. EENT: No deficits noted. No signs and/or symptoms were reported regarding the EENT system. Derm: No deficits noted. No signs and/or symptoms reported regarding the dermatologic system. Skin is intact, is healthy with good turgor, Skin is dry, Skin is normal, Skin temperature is warm. Musculoskeletal: No deficits noted. No signs and/or symptoms reported regarding the musculoskeletal system. Circulation, motion, and sensation intact. Range of motion: intact in all extremities. 01:31 Reassessment: assumed care of patient at this time. General: Appears in no apparent al5 distress. uncomfortable, Behavior is calm, cooperative. Pain: Complains of pain in right lower quadrant and right upper quadrant and anterior aspect of right lateral abdomen. Neuro: Level of Consciousness is awake, alert, obeys commands, Oriented to person, place, time, situation. Cardiovascular: Capillary refill < 3 seconds Patient's skin is warm and dry. Respiratory: Airway is patent Respiratory effort is even, unlabored, Respiratory pattern is regular, symmetrical. GI: Abdomen is round non-distended, obese, Reports lower abdominal pain, upper abdominal pain, nausea. : No signs and/or symptoms were reported regarding the genitourinary system. EENT: No signs and/or symptoms were reported regarding the EENT system. Derm: Skin is intact, is healthy with good turgor, Skin is pink, warm \T\ dry. normal. Musculoskeletal: No signs and/or symptoms reported regarding the musculoskeletal system. 01:59 Reassessment: Patient appears in no apparent distress at this time. Patient and/or al5 family updated on plan of care and expected duration. Pain level reassessed. Patient is alert, oriented x 3, equal unlabored respirations, skin warm/dry/pink. finished medication administration. notified patient that this nurse will be back in the room in 1 hour once his medication is done administered via IV. patient states he feels ready to go home. notified provider, provider placing discharge at this time. Vital Signs: 07/01 20:51 BP 151 / 102; Pulse 93; Resp 19; Temp 98.5; Pulse Ox 96% ; Weight 146.06 kg; Height 6 bm8 ft. 2 in. ; Pain 01/26; 07/02 01:30 BP 117 / 83; Pulse 76; Resp 18; Pulse Ox 96% on R/A; al5 01:45 BP 115 / 83; Pulse 74; Resp 16; Pulse Ox 96% ; al5 02:00 BP 112 / 86; Pulse 78; Resp 17; Pulse Ox 96% ; al5 07/01 20:51 Body Mass Index 41.34 (146.06 kg, 187.96 cm) bm8 07/01 20:51 Pain Scale: Adult bm8 ED Course: 07/01 20:37 Patient arrived in ED. jj6 20:46 Marcin Doty PA is PHCP. cp 20:46 Efrain Da Silva MD is Attending Physician. cp 20:53 Triage completed. bm8 20:53 Arm band placed on right wrist. bm8 21:36 US Abdomen Limited: gallbladder In Process Unspecified. EDMS 22:20 XRAY Chest (1 view) In Process Unspecified. EDMS 07/02 00:07 Radiology exam delayed due to lab results not completed at this time. IV insertion ag6 attempt and/or patient not having appropriate IV at this time. 00:09 Patient has correct armband on for positive identification. Warm blanket given. Family lg3 accompanied patient. 00:09 Missed attempt(s): 20 gauge in right forearm. Bleeding controlled, band aid applied, lg3 catheter tip intact. 00:11 Missed attempt(s): 20 gauge in right antecubital area. Bleeding controlled, band aid lg3 applied, catheter tip intact. 00:48 Abdomen In Process Unspecified. EDMS 01:31 Darya Dominguez, RN is Primary Nurse. al5 01:35 Provided Education on: plan of care. al5 01:35 No provider procedures requiring assistance completed. al5 02:20 IV discontinued, intact, bleeding controlled, No redness/swelling at site. Pressure al5 dressing applied. Administered Medications: 00:58 Drug: metoCLOPramide IVP 10 mg IVP once; over 1 to 2 minutes Route: IVP; Site: right lg3 forearm; 01:59 Follow up: Response: No adverse reaction; Nausea unchanged al5 00:58 Drug: HYDROmorphone IVP 1 mg IVP once Route: IVP; Site: right forearm; lg3 01:59 Follow up: Response: No adverse reaction; Pain is unchanged, physician notified al5 01:59 Drug: Methocarbamol IVPB 1 grams IVPB once over 1 hrs; (mix in NS 100 mL) Route: IVPB; al5 Infused Over: 1 hrs; Site: right antecubital; 02:19 Follow up: Response: No adverse reaction; IV Status: Order to discontinue infusion al5 01:59 Drug: Ondansetron IVP 4 mg IVP once; over 2 minutes Route: IVP; Site: right antecubital;al5 02:19 Follow up: Response: No adverse reaction; Nausea is decreased al5 01:59 Drug: fentaNYL (PF) IVP 50 mcg IVP once Route: IVP; Site: right antecubital; al5 02:19 Follow up: Response: No adverse reaction; Pain is decreased al5 Medication: 00:09 VIS not applicable for this client. lg3 Outcome: 01:58 Discharge ordered by . cp 02:20 Discharged to home ambulatory, with significant other, al5 02:20 Condition: good 02:20 Discharge instructions given to patient, significant other, Instructed on discharge instructions, follow up and referral plans. medication usage, Demonstrated understanding of instructions, follow-up care, medications, Prescriptions given X 2, 02:20 Patient left the ED. al5 Signatures: Dispatcher [employer] EDRI Marcin Doty PA PA cp Gutierrez, Autumn ag6 Roxy Erwin, RN RN lg3 Yudith Lucero6 Abhi Rai RN RN bm8 Darya Dominguez, RN RN al5
--- NOTE | 2024-07-02 01:58 | EDPHYS ---
Physician Documentation [facility] Name: Dennis Keating Age: 49 yrs Sex: Male : 1975 Arrival Date: 07/01/2024 Time: 20:34 Bed 20 Private MD: ED Physician Efrain Da Silva HPI: 07/01 21:15 This 49 yrs old Male presents to ER via Ambulatory with complaints of Abdominal Pain, cp PT has h/o crohn's disease. 21:15 The patient presents with abdominal pain in the right upper quadrant. cp 21:15 Onset: The symptoms/episode began/occurred suddenly, 1 hour(s) ago. The symptoms are cp described as sharp. 21:15 Associated signs and symptoms: Pertinent negatives: chest pain, constipation, diarrhea, cp fever, shortness of breath, testicular pain, vomiting. Patient reports PMHX for Crohn's disease and having gastric bypass surgery. Historical: - Allergies: 20:53 Aspirin; bm8 20:53 Cipro PO; bm8 20:53 Ibuprofen; bm8 20:53 ketorolac tromethamine; bm8 20:53 PENICILLINS; bm8 20:53 Toradol; bm8 - Home Meds: 20:53 Adderall XR 30 mg Oral capsule 1 cap 2 times per day [Active]; albuterol sulfate 90 bm8 mcg/actuation Inhl HFA Aerosol Inhaler 2 inhalations as needed [Active]; Bumex Oral 2 mg daily [Active]; Lasix 20 mg Oral tablet for EDEMA [Active]; lisinopril 10 mg Oral tablet [Active]; Brewster 10/325 Oral 1 tab twice a day [Active]; Trazodone Oral [Active]; - PMHx: 20:53 Back pain; Chronic obstructive lung disease; CHRONS; Congestive heart failure; bm8 Diverticulitis; Myocardial infarction; - PSHx: 20:53 Ankle; foot; bowel resection; hand; knee; testicle; bm8 - Immunization history:: Adult Immunizations up to date. - Infectious Disease History:: Denies. - Social history:: Smoking status: unknown. ROS: 21:20 Abdomen/GI: Positive for abdominal pain, nausea, of the right upper quadrant, Negative cp for vomiting, diarrhea, constipation, 21:20 Constitutional: Negative for body aches, chills, fever, poor PO intake, cp 21:20 Cardiovascular: Negative for chest pain, edema, palpitations, 21:20 Respiratory: Negative for cough, shortness of breath, wheezing, 21:20 Back: Negative for injury or acute deformity, decreased range of motion, 21:20 : Negative for urinary symptoms, hematuria, testicular pain 21:20 Neuro: Negative for altered mental status, dizziness, headache, numbness, weakness, 21:20 Eyes: Negative for injury, pain, redness, and discharge, cp 21:20 ENT: Negative for drainage from ear(s), ear pain, sore throat, difficulty swallowing, cp difficulty handling secretions, 21:20 All other systems are negative, Exam: 21:25 Constitutional: The patient appears in no acute distress, alert, awake, cp non-diaphoretic, non-toxic, well developed, well nourished, obese, uncomfortable, 21:25 Head/Face: Normocephalic, atraumatic. cp 21:25 Eyes: Periorbital structures: appear normal, Conjunctiva: normal, no exudate, no injection, Sclera: no appreciated abnormality, Lids and lashes: appear normal, bilaterally, 21:25 ENT: External ear(s): are unremarkable, Nose: is normal, Mouth: Lips: moist, Oral mucosa: moist, Posterior pharynx: Airway: no evidence of obstruction, patent, 21:25 Neck: ROM/movement: is normal, is supple, without pain, no range of motions limitations, 21:25 Chest/axilla: Inspection: normal, Palpation: crepitus, is not appreciated, tenderness, is not appreciated, 21:25 Cardiovascular: Rate: normal, Rhythm: regular, Edema: is not appreciated, JVD: is not cp appreciated, 21:25 Respiratory: the patient does not display signs of respiratory distress, Respirations: normal, no use of accessory muscles, no retractions, labored breathing, is not present, Breath sounds: are clear throughout, no decreased breath sounds, no stridor, no wheezing, 21:25 Abdomen/GI: Inspection: obese Bowel sounds: active, all quadrants, Palpation: soft, in all quadrants, severe abdominal tenderness, in the right upper quadrant, voluntary guarding, is elicited in the right upper quadrant, 21:25 Back: CVA tenderness, is absent, 21:25 Skin: cellulitis, is not appreciated, no rash present. 21:25 Neuro: Orientation: to person, place \T\ time. Mentation: is normal, Motor: moves all fours, strength is normal, Vital Signs: 20:51 BP 151 / 102; Pulse 93; Resp 19; Temp 98.5; Pulse Ox 96% ; Weight 146.06 kg; Height 6 bm8 ft. 2 in. ; Pain 10/10; 07/02 01:30 BP 117 / 83; Pulse 76; Resp 18; Pulse Ox 96% on R/A; al5 01:45 BP 115 / 83; Pulse 74; Resp 16; Pulse Ox 96% ; al5 02:00 BP 112 / 86; Pulse 78; Resp 17; Pulse Ox 96% ; al5 07/01 20:51 Body Mass Index 41.34 (146.06 kg, 187.96 cm) bm8 07/01 20:51 Pain Scale: Adult bm8 MDM: 07/01 21:05 Medical Screening Exam initiated 07/02 00:00 Differential diagnosis: bowel obstruction, cholecystitis, Cholelithiasis, pancreatitis, cp Peptic Ulcer Disease, Perf. Duodenal Ulcer, Perf. Gastric Ulcer, Pyelonephritis, Ureterolithiasis, urinary tract infection. 02:00 Data reviewed: vital signs, nurses notes, lab test result(s), radiologic studies, CT cp scan, plain films, and as a result, I will discharge patient. 02:00 I considered the following discharge prescriptions or medication management in the emergency department Medications were administered in the Emergency Department. See MAR. 02:00 Care significantly affected by the following chronic conditions: Congestive Heart cp Failure, Chronic Obstructive Pulmonary Disease. Counseling: I had a detailed discussion with the patient and/or guardian regarding the historical points, exam findings, and any diagnostic results supporting the discharge/admit diagnosis, lab results, radiology results, to return to the emergency department if symptoms worsen or persist or if there are any questions or concerns that arise at home. Response to treatment: the patient's symptoms have mildly improved after treatment, and as a result, I will discharge patient. Special discussion: Based on the patient's Hx, exam, and Dx evaluation, there is no indication for emergent surgery or inpatient Tx. It is understood by the patient/guardian that if the Sx's persist or worsen they need to return immediately for re-evaluation. 07/01 21:07 Order name: CBC with Diff; Complete Time: 01:32 cp 07/02 01:32 Interpretation: Reviewed. cp 07/01 21:07 Order name: CMP; Complete Time: 01:32 cp 07/02 01:32 Interpretation: Normal except: GLOB 4.0; A/G 0.9. cp 07/01 21:07 Order name: Lipase; Complete Time: 01:32 cp 07/02 01:32 Interpretation: Reviewed. cp 07/01 21:07 Order name: Urinalysis w/ reflexes; Complete Time: 01:32 cp 07/02 01:32 Interpretation: Normal except: Urine SG > 1.030; UPROT 1+; UUROB 1+; MUCUS 4+. cp 07/01 21:05 Order name: US Abdomen Limited: gallbladder; Complete Time: 00:41 cp 07/02 00:41 Interpretation: Report reviewed. cp 07/01 21:07 Order name: XRAY Chest (1 view); Complete Time: 00:41 cp 07/02 00:41 Interpretation: Report review. 07/02 00:43 Order name: Abdomen ; Complete Time: 01:59 EDMS 03 02:00 Interpretation: Report reviewed. cp 07/01 21:07 Order name: IV Saline Lock; Complete Time: 00:58 cp 07/01 21:07 Order name: Labs collected and sent; Complete Time: 00:58 cp 07/01 21:07 Order name: NPO; Complete Time: 01:36 cp Administered Medications: 00:58 Drug: metoCLOPramide IVP 10 mg IVP once; over 1 to 2 minutes Route: IVP; Site: right lg3 forearm; 01:59 Follow up: Response: No adverse reaction; Nausea unchanged al5 00:58 Drug: HYDROmorphone IVP 1 mg IVP once Route: IVP; Site: right forearm; lg3 01:59 Follow up: Response: No adverse reaction; Pain is unchanged, physician notified al5 01:59 Drug: Methocarbamol IVPB 1 grams IVPB once over 1 hrs; (mix in NS 100 mL) Route: IVPB; al5 Infused Over: 1 hrs; Site: right antecubital; 02:19 Follow up: Response: No adverse reaction; IV Status: Order to discontinue infusion al5 01:59 Drug: Ondansetron IVP 4 mg IVP once; over 2 minutes Route: IVP; Site: right antecubital;al5 02:19 Follow up: Response: No adverse reaction; Nausea is decreased al5 01:59 Drug: fentaNYL (PF) IVP 50 mcg IVP once Route: IVP; Site: right antecubital; al5 02:19 Follow up: Response: No adverse reaction; Pain is decreased al5 Disposition Summary: 07/02/24 01:58 Discharge Ordered Notes: Location: Home cp Problem: new cp Symptoms: have improved cp Condition: Stable cp Diagnosis - Upper abdominal pain, unspecified cp Followup: cp - With: Private Physician - When: 2 - 3 days - Reason: Recheck today's complaints Discharge Instructions: - Discharge Summary Sheet cp - Abdominal Pain, Adult cp Forms: - Medication Reconciliation Form cp - Antibiotic Education cp - Prescription Opioid Use cp - Patient Portal Instructions cp - Leadership Thank You Letter cp Prescriptions: - dicyclomine 20 mg Oral tablet - take 1 tablet ORAL route 4 times per day; 30 tablet; Refills: 0, Product cp Selection Permitted - ondansetron 8 mg Oral Tablet,disintegrating - take 1 tablet ORAL route every 12 hours; 15 tablet; Refills: 0, Product cp Selection Permitted Addendum: 07/03/2024 03:35 I was immediately available for consultation during this patient's visit. I did not e c2 personally see the patient or discuss the patient with the JANELL. . Signatures: Dispatcher [employer] EDMS Marcin Doty PA PA cp Able, Lacie, RN RN lg3 Efrain Da Silva MD MD ec2 Abhi Rai RN RN bm8 Darya Dominguez RN RN al5 Corrections: (The following items were deleted from the chart) 07/01 21:07 21:07 Chest Single View+RAD.RAD.BRZ ordered. EDMS EDMS 07/02 00:43 07/01 21:08 Abdomen Pelvis W Con+CT.RAD.BRZ ordered. EDMS EDMS 07/03 01:12 07/01 21:20 All other systems are negative, cp cp
[2024-07-02 02:52] VITALS: TEMP 98.5; O2SAT 96
[2024-07-02 02:56] VITALS: BP 112/86
== END 2024-07-02 02:20 | disposition home or self-care (01) ==
LOC: ER 20:34
DX: R10.11 Right upper quadrant pain (principal); R11.0 Nausea
CPT/HCPCS: 85025; 81001; 36415; 83690; 80053; 74176; 71045; 76705; 99284; J2765; J3010; J1171; J2405; J2800

== ENCOUNTER 2024-09-04 18:59 | Emergency (ER) | payer OTHER ==
[2011-12-16 17:39] VITALS: BP 129/78
--- NOTE | 2024-09-04 23:05 | ER ---
Nurse's Notes [facility] Name: Dennis Keating Age: 49 yrs Sex: Male : 1975 Arrival Date: 09/04/2024 Time: 18:59 Bed [id number] Private MD: Diagnosis: Presentation: 09/04 19:51 Chief complaint: Patient states: RIGHT UPPER TOOTHACHE, SORE THROAT, RIGHT CHEEK br2 SWOLLEN. Coronavirus screen: Client denies travel out of the [place] in the last 14 days. Ebola Screen: Patient denies exposure to infectious person. Initial Sepsis Screen: Does the patient meet any 2 criteria? No. Patient's initial sepsis screen is negative. Does the patient have a suspected source of infection? No. Patient's initial sepsis screen is negative. Risk Assessment: Do you want to hurt yourself or someone else? Patient reports no desire to harm self or others. Onset of symptoms was September 02, 2024. 19:51 Method Of Arrival: Ambulatory br2 19:51 Acuity: AMNA 4 br2 Triage Assessment: 19:55 General: Appears in no apparent distress. uncomfortable, Behavior is calm, cooperative. br2 Pain: Complains of pain in right cheek and right jaw Pain currently is 10 out of 10 on a pain scale. Historical: - Allergies: 19:54 Aspirin; br2 19:54 Cipro PO; br2 19:54 Ibuprofen; br2 19:54 ketorolac tromethamine; br2 19:54 PENICILLINS; br2 19:54 Toradol; br2 - PMHx: 19:54 Back pain; Chronic obstructive lung disease; CHRONS; Congestive heart failure; br2 Diverticulitis; Myocardial infarction; - Immunization history:: Adult Immunizations Adult Immunizations not up to date. - Infectious Disease History:: Denies. - Social history:: Smoking status: Reported history of juuling and/or vaping. Patient/guardian denies using tobacco, Patient uses Patient/guardian denies using alcohol, street drugs. Vital Signs: 19:51 BP 161 / 105; Pulse 84; Resp 18; Temp 97.2; Pulse Ox 99% on R/A; Weight 133.36 kg; br2 Height 6 ft. 3 in. ; Pain 9/10; 19:51 Body Mass Index 36.75 (133.36 kg, 190.5 cm) br2 19:51 Pain Scale: Adult br2 ED Course: 19:01 Patient arrived in ED. al6 19:05 [facility] cp 19:05 Isabel Caraballo MD is Attending Physician. cp 19:50 Evie Hodge, RN is Primary Nurse. br2 19:54 Triage completed. br2 19:55 Arm band placed on. br2 20:13 Radiology exam delayed due to lab results not completed at this time. (BUN/Creatinine) ls3 IV insertion attempt and/or patient not having appropriate IV at this time. 22:04 Radiology exam delayed due to IV insertion attempt and/or patient not having ls3 appropriate IV at this time. Administered Medications: 23:03 CANCELLED (Patient Eloped): ns 0.9% 1000 ml IV at 1 bolus Per protocol; to be given as vc1 a bolus over 60 minutes 23:03 Not Given (Patient Eloped): morphineor iv 4 mg IVP once over 4 mins vc1 23:03 Not Given (Patient Eloped): ondansetron 4 mg IVP once; over 2 minutes vc1 Outcome: 23:04 Patient left the ED. vc1 Signatures: Marcin Doty PA PA cp Siler, Lynzie ls3 Tess Stroud RN RN vc1 Evie Hodge RN RN br2 Giuliana Crowe al6
== END 2024-09-04 23:04 | disposition left against medical advice (07) ==
LOC: ER 18:59
DX: Z53.21 Procedure and treatment not carried out due to patient leaving prior to being seen by health care provider (principal)
CPT/HCPCS: 99281

== ENCOUNTER 2025-02-09 13:46 | Emergency (ER) | payer OTHER ==
[2025-02-09] MEDS ORDERED: METHYLPREDNISOLONE 125 MG INJ ONE (14:28)
[2025-02-09] MEDS ORDERED: HYDROMORPHONE HCL 1 MG/ML INJ ONE (14:28)
[2025-02-09] MEDS ORDERED: ONDANSETRON 4 MG/2 ML VIAL ONE (14:29)
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
[2025-02-09 17:26] VITALS: BP 152/99; TEMP 97.8; O2SAT 99
== END 2025-02-09 15:16 | disposition home or self-care (01) ==
LOC: ER 13:46
DX: M54.50 Low back pain, unspecified (principal)
CPT/HCPCS: 96375; 96374; 99284; J1171; J2919; J2405